=== PATIENT | female | born 1940 | race African-American/Black ===

== ENCOUNTER 2024-03-18 17:09 | Inpatient (IN) ==
[2024-03-18 18:14] LABS: Basophils # (auto) 0.04 K/uL (0.00-0.20); Basophils % (auto) 0.4 %; Eosinophils # (auto) 0.22 K/uL (0.00-0.50); Eosinophils % (auto) 2.4 %; Hematocrit (blood only) 31.1 % (37.0-47.0); Hemoglobin 9.7 g/dl (12.0-16.0); Immature Granulocytes # (auto) 0.14 K/uL (0.01-0.20); Immature Granulocytes % (auto) 1.5 %; Lymphocytes # (auto) 1.53 K/uL (1.20-3.40); Lymphocytes % (auto) 16.8 %; Mean Corpuscular Hemoglobin 35.5 pg (25.0-34.0); Mean Corpuscular Hgb Conc 31.2 g/dL (32.0-36.0); Mean Corpuscular Volume 113.9 fL (80.0-100.0); Mean Platelet Volume 10.2 fL (9.4-12.4); Monocytes # (auto) 0.61 K/uL (0.11-0.59); Monocytes % (auto) 6.7 %; Neutrophils # (auto) 6.58 K/uL (1.40-6.50); Neutrophils % (auto) 72.2 %; Platelet Count 239 K/uL (130-400); RDW Coefficient of Variation 13.1 % (11.5-14.5); RDW Standard Deviation 53.3 fL (36.4-46.3); Red Blood Count 2.73 M/uL (4.20-5.40); White Blood Count 9.12 K/ul (4.8-10.8)
[2024-03-18 18:30] LABS: Albumin Level 3.8 gm/dl (3.4-5.0); BUN Creatinine Ratio 39.4 (10-20); Bilirubin,Total 0.4 mg/dl (0.2-1.0); Calcium 9.4 mg/dl (8.6-10.3); Creatinine Clr Calc Pharmacy 32.7 ml/min; Magnesium 2.3 mg/dl (1.7-2.4); Potassium 4.7 mmol/L (3.5-5.1); Total Protein 6.9 gm/dl (6.0-8.3)
[2024-03-18 18:31] LABS: Macrocytosis Present
[2024-03-18 18:40] LABS: Troponin I High Sensitivity 12.1 pg/ml (0-14)
[2024-03-18] MEDS: OPTIRAY 320 100ml IV ONE (19:08)
[2024-03-18 19:15] LABS: Partial Thromboplastin Ratio 2.2; Partial Thromboplastin Time 60 Seconds (21-31); Prothrombin Time 55.4 Seconds (9.0-12.0)
--- NOTE | 2024-03-18 20:06 | CT Scan Report ---
Exam(s): CT HEAD Without Contrast EXAM: CT Head Without Intravenous Contrast CLINICAL HISTORY: Reason for exam: arnold. TECHNIQUE: Axial computed tomography images of the head/brain without intravenous contrast. CTDI is 36.43 mGy and DLP is 546.36 mGy-cm. Automated exposure control was utilized for the study. A dose lowering technique was utilized adhering to the principles of ALARA. COMPARISON: 07/30/2023 FINDINGS: Brain: No intracranial hemorrhage, mass-effect, or cerebral edema. Global parenchymal atrophy. Periventricular and subcortical low attenuation which is nonspecific but favored to represent chronic microvascular ischemic changes. Ventricles: Unremarkable. Bones/joints: Unremarkable. No fracture. Soft tissues: Unremarkable. Sinuses: No acute sinusitis. Mastoid air cells: Unremarkable as visualized. IMPRESSION: 1. No acute intracranial abnormality. Electronically signed by: Ed Howard MD 03/18/24 20:05 PM
--- NOTE | 2024-03-18 20:08 | CT Scan Report ---
Exam(s): CT ABDOMEN + PELVIS With Contrast IV Amt: 90 ml optiray 320 EXAM: CT Abdomen and Pelvis With Intravenous Contrast CLINICAL HISTORY: Reason for exam: abd pain. TECHNIQUE: Axial computed tomography images of the abdomen and pelvis with intravenous contrast. CTDI is 24.94 mGy and DLP is 1067.37 mGy-cm. Automated exposure control was utilized for the study. A dose lowering technique was utilized adhering to the principles of ALARA. CONTRAST: Patient received 90 ml optiray 320 of IV contrast COMPARISON: No relevant prior studies available. FINDINGS: Mediastinum: Small hiatal hernia. ABDOMEN: Liver: Unremarkable. Gallbladder and bile ducts: Unremarkable. Pancreas: Unremarkable. Spleen: Unremarkable. Adrenals: Unremarkable. Kidneys and ureters: Multiple cortical cysts. Moderate right hydronephrosis to the level of the UPJ. No obstructing stone or perinephric laboratory changes suggest this is chronic. Stomach and bowel: Mild acute diverticulitis of the sigmoid colon. No perforation or abscess. PELVIS: Appendix: No findings to suggest acute appendicitis. Bladder: Unremarkable. Reproductive: Hysterectomy. ABDOMEN and PELVIS: Intraperitoneal space: Unremarkable. No free air. No significant fluid collection. Bones/joints: Left hip arthroplasty. Degenerative changes at the pubic symphysis which is widened. No acute fracture. Degenerative changes in the SI joints and in the lumbar spine. Soft tissues: Unremarkable. Vasculature: Aortobiiliac atherosclerotic calcifications. Mildly ectatic infrarenal abdominal aorta measuring up to 2.8 cm. Lymph nodes: Unremarkable. IMPRESSION: 1. Mild acute diverticulitis of the sigmoid colon. No perforation or abscess. 2. Small hiatal hernia. 3. Moderate right hydronephrosis to the level of the UPJ. No obstructing stone or perinephric laboratory changes suggest this is chronic. Electronically signed by: Ed Howard MD 03/18/24 20:07 PM
[2024-03-18] MEDS: CIPROFLOXACIN / D5W 400 MG/200 ML BAG IV STA (20:22)
[2024-03-18] MEDS: metroNIDAZOLE 500 MG/100 ML BAG IV STA (20:27)
[2024-03-18] MEDS: ACETAMINOPHEN 1,000 MG/100 ML VIAL IV STA (20:38)
[2024-03-18] MEDS: PHYTONADIONE 5 MG in DEXTROSE 5% 50 ML IV ONE (22:21)
[2024-03-18] MEDS: diphenhydrAMINE Capsule 25 MG CAP PO STA (22:45)
--- NOTE | 2024-03-18 23:00 | History & Physical Report ---
Date of Service March 18, 2024 Assessment & Plan (1) Diverticulitis: (2) GI bleed: (3) Macrocytic anemia: (4) Hypertension: (5) Hydronephrosis of right kidney: (6) Chest tightness: Plan Diverticulitis/GI bleed - CT AP: No abscess or perforation, mild sigmoid diverticulitis - Continue IV ciprofloxacin/IV metronidazole abx for sigmoid diverticulitis - NPO/bowel rest with sips of water with medications - GI consult placed to determine potential endoscopy - Transition to outpatient abx on d/c Anemia - Hgb: 13.5 in July, 11.8 in August and today 9.7 - INR: 6, baseline 3.5-4 - IV vitamin K given - repeat INR QAM - Folate, B12, peripheral smear pending Chest tightness - EKst degree AV block, RBBB unchanged, increased MN interval - HST: 12.1, will repeat due to ongoing symptoms - Echocardiogram ordered, previous unavailable R. Hydronephrosis with renal cysts - CT AP: Moderate R. hydronephrosis to level of UPJ w/o obstructing stone - Renal/bladder US to assess bladder and kidneys for obstruction HTN - Continue home lisinopril 10mg PO daily History of Present Illness Chief Complaint: Diverticulitis, GI bleed Primary Care Provider: DARNELL Lemus Aleida Ty is a 83 y/o F with a past medical history of mechanical aortic valve replacement approximately 30 years ago on warfarin, glaucoma, CKD stage 3, HTN, chronic knee/back pain arriving in the [facility] ED due to an instance of black diarrhea this morning. Patient reports that she was feeling weak, lightheaded and dizzy last night, and had some chest tightness and SOB that she reports is unusual for her. Patient notes that the chest tightness is lingering today but her SOB has improved. When asked how she is feeling today she reports that she is miserable and uncomfortable in the ED bed. She describes her pain as 6/10 in the left lower quadrant of her abdomen, radiating around her lower back. Patient continues to feel very weak, and complains of chronic pains in her legs and upper back as well. In the ED patient had a head CT that was within normal limits and a CT AP that showed sigmoid diverticulitis. Patient was started on IV ciprofloxacin and IV metronidazole for this infection, and was also given IV vitamin K as her INR was 6.0 with a baseline around 3.5-4.0 associated with chronic warfarin therapy. Today patient denies cough, wheeze, headache, palpitations and chest pain. Allergies Allergy/AdvReac Type Severity Reaction Status Date / Time No Known Allergies Allergy Unverified 02/05/24 15:02 Home Medications Medication Instructions Recorded Confirmed Type latanoprost 0.005 % eye drops 1 drp OPB PM 07/31/23 03/18/24 History furosemide 20 mg tablet 20 mg PO DAILY #90 tabs 08/20/23 03/18/24 Rx warfarin 5 mg tablet 5 mg PO DAILY 08/20/23 03/18/24 History lisinopril 10 mg tablet 10 mg PO DAILY #90 tabs 10/30/23 03/18/24 Rx Shower Chair #1 ea 11/20/23 03/18/24 Rx diclofenac sodium 1 % topical gel 2 g topical QID PRN Pain 02/05/24 03/18/24 History (Arthritis Pain (diclofenac)) tramadol 50 mg tablet 50 mg PO BID PRN pain 02/05/24 03/18/24 History gabapentin 100 mg capsule 100 mg PO TID #90 caps 02/28/24 03/18/24 Rx brimonidine 0.2 % eye drops 1 drp OPB TID 03/18/24 03/18/24 History dorzolamide 2 % eye drops 1 drp OPB BID 03/18/24 03/18/24 History metoprolol succinate 25 mg 12.5 mg PO QAM 03/18/24 03/18/24 History tablet,extended release 24 hr Past Med/Surg History Problem List (Updated 03/18/24 @ 23:37 by Bret Wilkins MD) Chest tightness Hydronephrosis of right kidney Macrocytic anemia GI bleed (Acute) Diverticulitis (Acute) Chronic back pain Glaucoma CKD (chronic kidney disease) stage 3, GFR 30-59 ml/min HTN (hypertension) with goal to be determined On warfarin therapy Medical History Current every day smoker On warfarin therapy Hypertension Surgical History H/O mechanical aortic valve replacement Family History Brother Hypertension Heart disease Sister Hypertension Heart disease Mother Hypertension Heart disease Myocardial infarction Father Hypertension Heart disease Denies family history of Ovarian cancer Prostate cancer Breast cancer Lung cancer Colorectal cancer Stroke Social History Smoking Status: Current every day smoker Tobacco Type: Cigarettes Age Started Using Tobacco: 38; packs per day: 0.50; Cigarettes Per Day: 1/2 pack; Second Hand Exposure: No; Do You Dip or Chew Tobacco: No; Tobacco Cessation Education Requested by Patient: No Hx Alcohol Use: No Hx Substance Use: No Preferred Language: Italian Communication Ability: Effective Visual Impairment: Limited Hearing Ability: Normal Bariatric Coordinator Required: No Beliefs That Will Affect Care: None marital status: / Current Living Situation: Alone Current Living Situation Comment: alone, says she has home healthcare current occupational status: retired How many Children do You have: 4 Other Information That Helps Us Care for You: No Feels Safe at Home: Yes Safety Concerns: Feels Safe At This Time Childhood Exposure to Second-Hand Smoke: Yes Diet: low salt caffeine: Yes Dental Care, Regularly: No Physical Activity Frequency: Does not Exercise Seatbelt Use: always Sunscreen Use: No Assistive Devices: Walker and Other Assistive Devices Comment: walker and shower chair Physical Exam Physical Exam: General: patient resting comfortably, NAD, non-toxic in appearance, answers questions appropriately. Skin: warm, dry, intact HEENT: NC/AT, anicteric sclera, conjunctiva without injection, moist mucus membranes. Heart: +S1/S2, regular, no m/r/g Lungs: equal air entry bilaterally, no rales/rhonchi/wheezes Abd: +BS, soft, NT/ND Ext: warm, no clubbing/cyanosis, painful when palpating BL LE Neuro: nonfocal, speech intact, no facial droop, moving all extremities. Results & Data Results & Data Vital Signs (Past 12 Hours) Vital Signs Temp Pulse Pulse Resp BP BP Pulse Ox 03/18/24 22:00 83 22 160/62 H 97 03/18/24 21:38 85 03/18/24 20:00 82 12 173/76 H 98 03/18/24 18:12 86 16 97 03/18/24 18:12 86 16 114/94 97 03/18/24 17:40 92 H 03/18/24 17:17 37.1 C 86 20 164/124 H 97 O2 Del Method 03/18/24 22:00 Room Air 03/18/24 21:38 03/18/24 20:00 Room Air 03/18/24 18:12 Room Air 03/18/24 18:12 Room Air 03/18/24 17:40 03/18/24 17:17 Room Air Diagnostic Findings Laboratory Results WBC 9.12 K/ul (4.8-10.8) 03/18/24 17:39 RBC 2.73 M/uL (4.20-5.40) L 03/18/24 17:39 Hgb 9.7 g/dl (12.0-16.0) L 03/18/24 17:39 Hct 31.1 % (37.0-47.0) L 03/18/24 17:39 MCV 113.9 fL (80.0-100.0) H 03/18/24 17:39 MCH 35.5 pg (25.0-34.0) H 03/18/24 17:39 MCHC 31.2 g/dL (32.0-36.0) L 03/18/24 17:39 RDW Std Deviation 53.3 fL (36.4-46.3) H 03/18/24 17:39 RDW Coeff of Xavier 13.1 % (11.5-14.5) 03/18/24 17:39 Plt Count 239 K/uL (130-400) 03/18/24 17:39 MPV 10.2 fL (9.4-12.4) 03/18/24 17:39 Immature Gran % (Auto) 1.5 % 03/18/24 17:39 Neut % (Auto) 72.2 % 03/18/24 17:39 Lymph % (Auto) 16.8 % 03/18/24 17:39 Laurel % (Auto) 6.7 % 03/18/24 17:39 Eos % (Auto) 2.4 % 03/18/24 17:39 Baso % (Auto) 0.4 % 03/18/24 17:39 Neut # (Auto) 6.58 K/uL (1.40-6.50) H 03/18/24 17:39 Lymph # (Auto) 1.53 K/uL (1.20-3.40) 03/18/24 17:39 Laurel # (Auto) 0.61 K/uL (0.11-0.59) H 03/18/24 17:39 Eos # (Auto) 0.22 K/uL (0.00-0.50) 03/18/24 17:39 Baso # (Auto) 0.04 K/uL (0.00-0.20) 03/18/24 17:39 Immature Gran # (Auto) 0.14 K/uL (0.01-0.20) 03/18/24 17:39 Macrocytosis Present 03/18/24 17:39 PT 55.4 Seconds (9.0-12.0) H 03/18/24 17:39 INR 6.0 (0.9-1.1) H* 03/18/24 17:39 APTT 60 Seconds (21-31) H 03/18/24 17:39 PTT Ratio 2.2 03/18/24 17:39 Sodium 142 mmol/L (136-145) 03/18/24 17:39 Potassium 4.7 mmol/L (3.5-5.1) 03/18/24 17:39 Chloride 115 mmol/L (98-107) H 03/18/24 17:39 Carbon Dioxide 21 mmol/L (21-32) 03/18/24 17:39 Anion Gap 6 (3-11) 03/18/24 17:39 BUN 50 mg/dl (6-23) H 03/18/24 17:39 Creatinine 1.27 mg/dl (0.6-1.2) H 03/18/24 17:39 Est Cr Clr Drug Dosing 32.7 ml/min 03/18/24 17:39 eGFR 41.44 03/18/24 17:39 BUN/Creatinine Ratio 39.4 (10-20) H 03/18/24 17:39 Glucose 84 mg/dl (70-99(Fasting)) 03/18/24 17:39 Calcium 9.4 mg/dl (8.6-10.3) 03/18/24 17:39 Magnesium 2.3 mg/dl (1.7-2.4) 03/18/24 17:39 Total Bilirubin 0.4 mg/dl (0.2-1.0) 03/18/24 17:39 Direct Bilirubin 0.0 mg/dl (0-0.2) 03/18/24 17:39 AST 22 U/L (13-39) 03/18/24 17:39 ALT 15 U/L (7-52) 03/18/24 17:39 Alkaline Phosphatase 103 U/L (34-104) 03/18/24 17:39 Troponin I High Sens 12.1 pg/ml (0-14) 03/18/24 17:39 Total Protein 6.9 gm/dl (6.0-8.3) 03/18/24 17:39 Albumin 3.8 gm/dl (3.4-5.0) 03/18/24 17:39 Lipase 44 U/L (11-82) 03/18/24 17:39 Blood Type O Positive 03/18/24 21:06 Antibody Screen NEGATIVE 03/18/24 21:06 Impressions Abdomen/Pelvis CT 03/18/24 17:36 Exam(s): CT ABDOMEN + PELVIS With Contrast IV Amt: 90 ml optiray 320 EXAM: CT Abdomen and Pelvis With Intravenous Contrast CLINICAL HISTORY: Reason for exam: abd pain. TECHNIQUE: Axial computed tomography images of the abdomen and pelvis with intravenous contrast. CTDI is 24.94 mGy and DLP is 1067.37 mGy-cm. Automated exposure control was utilized for the study. A dose lowering technique was utilized adhering to the principles of ALARA. CONTRAST: Patient received 90 ml optiray 320 of IV contrast COMPARISON: No relevant prior studies available. FINDINGS: Mediastinum: Small hiatal hernia. ABDOMEN: Liver: Unremarkable. Gallbladder and bile ducts: Unremarkable. Pancreas: Unremarkable. Spleen: Unremarkable. Adrenals: Unremarkable. Kidneys and ureters: Multiple cortical cysts. Moderate right hydronephrosis to the level of the UPJ. No obstructing stone or perinephric laboratory changes suggest this is chronic. Stomach and bowel: Mild acute diverticulitis of the sigmoid colon. No perforation or abscess. PELVIS: Appendix: No findings to suggest acute appendicitis. Bladder: Unremarkable. Reproductive: Hysterectomy. ABDOMEN and PELVIS: Intraperitoneal space: Unremarkable. No free air. No significant fluid collection. Bones/joints: Left hip arthroplasty. Degenerative changes at the pubic symphysis which is widened. No acute fracture. Degenerative changes in the SI joints and in the lumbar spine. Soft tissues: Unremarkable. Vasculature: Aortobiiliac atherosclerotic calcifications. Mildly ectatic infrarenal abdominal aorta measuring up to 2.8 cm. Lymph nodes: Unremarkable. IMPRESSION: 1. Mild acute diverticulitis of the sigmoid colon. No perforation or abscess. 2. Small hiatal hernia. 3. Moderate right hydronephrosis to the level of the UPJ. No obstructing stone or perinephric laboratory changes suggest this is chronic. Electronically signed by: Ed Howard MD 03/18/24 20:[address] 03/18/24 17:46 Exam(s): CT HEAD Without Contrast EXAM: CT Head Without Intravenous Contrast CLINICAL HISTORY: Reason for exam: arnold. TECHNIQUE: Axial computed tomography images of the head/brain without intravenous contrast. CTDI is 36.43 mGy and DLP is 546.36 mGy-cm. Automated exposure control was utilized for the study. A dose lowering technique was utilized adhering to the principles of ALARA. COMPARISON: 07/30/2023 FINDINGS: Brain: No intracranial hemorrhage, mass-effect, or cerebral edema. Global parenchymal atrophy. Periventricular and subcortical low attenuation which is nonspecific but favored to represent chronic microvascular ischemic changes. Ventricles: Unremarkable. Bones/joints: Unremarkable. No fracture. Soft tissues: Unremarkable. Sinuses: No acute sinusitis. Mastoid air cells: Unremarkable as visualized. IMPRESSION: 1. No acute intracranial abnormality. Electronically signed by: Ed Howard MD 03/18/24 20:05 PM Supervising Physician Co-Signing Physician Notes Attending addendum: I have physically seen this patient, have supervised the medical residents activities, and agree with the H&P unless as otherwise noted. Assessment and Plan: Mild acute sigmoid diverticulitis/lower GI bleed- CT abdomen pelvis showed mild sigmoid diverticulitis, without abscess or perforation NPO except essential medications Continue Cipro 40 mg IV every 12 hours and Flagyl 5 mg IV every 8 hours begun in the ED Consult gastroenterology Follow serial H&H's Chest tightness- Initial troponin mildly elevated at 14.9 with follow-up pending The patient will be admitted to telemetry for serial cardiac enzymes, serial EKG's, cardiac rhythm monitoring and a 2-D echocardiogram with Dopplers. Anemia- Hemoglobin has sequentially dropped from 13.5 in July, -11.8 in August, to today's value of 9.7 Blood pressure and heart rate are acceptable Type and screen Coagulopathy/chronic warfarin use for mechanical valve- INR 6.0 on admission with base range 3.5-4 Vitamin K 5 mg IV given by the ED Repeat INR in the a.m. Check a folate, B12 iron levels and peripheral smear Right hydronephrosis with renal cyst- CT abdomen pelvis with moderate right hydro to the UPJ No obstructing stone or other obvious obstruction Order renal bladder ultrasound to further assess Three-phase renal CT may be needed Pending results, may require urology consult Tobacco use disorder- Smokes half pack per day x 40 years Tobacco cessation counseling Resident Activity Tracking Resident Involvement: Resident Care Provided Care Provided: Adult Hospital Medicine
--- NOTE | 2024-03-18 23:37 | Emergency Department Note ---
History of Present Illness General Chief complaint: GI Assessment Stated complaint: GI Assessment Time Seen by Provider: 03/18/24 17:35 History of Present Illness Provider Complaint: + melena and + gross hematochezia Onset (ago): 1 day(s) Pain Consistency: + constant Maximum Pain Intensity: 6 Current Pain Intensity: 6 Relieved By: + none Exacerbated By: + bowel movement Context: + anticoagulant use (Patient on Coumadin reports last INR was 8.2); no rectal trauma or no alcohol abuse Associated symptoms: + abdominal pain and + headaches; no nausea, no vomiting, no fever or no chills Home Medications Medication Instructions Recorded Confirmed Type latanoprost 0.005 % eye drops 1 drp OPB PM 07/31/23 03/18/24 History furosemide 20 mg tablet 20 mg PO DAILY #90 tabs 08/20/23 03/18/24 Rx warfarin 5 mg tablet 5 mg PO DAILY 08/20/23 03/18/24 History lisinopril 10 mg tablet 10 mg PO DAILY #90 tabs 10/30/23 03/18/24 Rx Shower Chair #1 ea 11/20/23 03/18/24 Rx diclofenac sodium 1 % topical gel 2 g topical QID PRN Pain 02/05/24 03/18/24 History (Arthritis Pain (diclofenac)) tramadol 50 mg tablet 50 mg PO BID PRN pain 02/05/24 03/18/24 History gabapentin 100 mg capsule 100 mg PO TID #90 caps 02/28/24 03/18/24 Rx brimonidine 0.2 % eye drops 1 drp OPB TID 03/18/24 03/18/24 History dorzolamide 2 % eye drops 1 drp OPB BID 03/18/24 03/18/24 History metoprolol succinate 25 mg 12.5 mg PO QAM 03/18/24 03/18/24 History tablet,extended release 24 hr Allergies Allergy/AdvReac Type Severity Reaction Status Date / Time No Known Allergies Allergy Unverified 02/05/24 15:02 Past Med/Surg History Problem List (Updated 03/18/24 @ 23:37 by Bret Wilkins MD) Chest tightness Hydronephrosis of right kidney Macrocytic anemia GI bleed (Acute) Diverticulitis (Acute) Chronic back pain Glaucoma CKD (chronic kidney disease) stage 3, GFR 30-59 ml/min HTN (hypertension) with goal to be determined On warfarin therapy Medical History Current every day smoker On warfarin therapy Hypertension Surgical History H/O mechanical aortic valve replacement Family History Brother Hypertension Heart disease Sister Hypertension Heart disease Mother Hypertension Heart disease Myocardial infarction Father Hypertension Heart disease Denies family history of Ovarian cancer Prostate cancer Breast cancer Lung cancer Colorectal cancer Stroke Social History Smoking Status: Current every day smoker Tobacco Type: Cigarettes Age Started Using Tobacco: 38; packs per day: 0.50; Second Hand Exposure: No; Do You Dip or Chew Tobacco: No; Hx Alcohol Use: No Hx Substance Use: No Preferred Language: Honduran Visual Impairment: Limited Hearing Ability: Normal marital status: / Current Living Situation: Alone current occupational status: retired How many Children do You have: 4 Feels Safe at Home: Yes Childhood Exposure to Second-Hand Smoke: Yes Diet: low salt caffeine: Yes Dental Care, Regularly: No Physical Activity Frequency: Does not Exercise Seatbelt Use: always Sunscreen Use: No Assistive Devices: Glasses Physical Exam 2 Vital Signs: Vital Signs - 24 hr 03/18/24 17:17 03/18/24 17:40 03/18/24 18:12 Temperature 37.1 C Temperature Source Temporal Artery Sc an Pulse Rate 86 92 H Pulse Rate [Apical ] 86 Respiratory Rate 20 16 Respiratory Effort / Characteristics Non-Labored Respiratory Depth Normal Blood Pressure 164/124 H Blood Pressure [Ri ght Arm] 114/94 Blood Pressure Scarlett n 137 Blood Pressure Scarlett n [Right Arm] 100 Blood Pressure Pos ition [Right Arm] Semi-fowlers Pulse Oximetry 97 97 Oxygen Delivery Me thod Room Air Room Air Sepsis Recent Feve r Within 48 Hours No Sepsis New/Unexpla ined Change in Men naveed Status N/A Sepsis Action Take n by Nursing No Action Required 03/18/24 18:12 03/18/24 20:00 03/18/24 21:38 Temperature Temperature Source Pulse Rate 86 85 Pulse Rate [Apical ] 82 Respiratory Rate 16 12 Respiratory Effort / Characteristics Non-Labored Respiratory Depth Normal Blood Pressure Blood Pressure [Ri ght Arm] 173/76 H Blood Pressure Scarlett n Blood Pressure Scarlett n [Right Arm] 108 Blood Pressure Pos ition [Right Arm] Semi-fowlers Pulse Oximetry 97 98 Oxygen Delivery Me thod Room Air Room Air Sepsis Recent Feve r Within 48 Hours Sepsis New/Unexpla ined Change in Men naveed Status Sepsis Action Take n by Nursing 03/18/24 22:00 Temperature Temperature Source Pulse Rate Pulse Rate [Apical ] 83 Respiratory Rate 22 Respiratory Effort / Characteristics Non-Labored Sponta neous Respiratory Depth Normal Blood Pressure Blood Pressure [Ri ght Arm] 160/62 H Blood Pressure Scarlett n Blood Pressure Scarlett n [Right Arm] 94 Blood Pressure Pos ition [Right Arm] Semi-fowlers Pulse Oximetry 97 Oxygen Delivery Me thod Room Air Sepsis Recent Feve r Within 48 Hours Sepsis New/Unexpla ined Change in Men naveed Status Sepsis Action Take n by Nursing Physical Exam: Physical Exam HENT: Exam performed. -Head: Normocephalic and atraumatic. -Right Ear: External ear normal. No mastoid erythema -Left Ear: External ear normal. No mastoid erythema -Mouth/Throat: The oropharynx is clear and moist. No trismus in the jaw. No dental abscesses or uvula swelling. No oropharyngeal exudate or tonsillar abscesses. EYES: Conjunctivae and EOM are normal.Right eye exhibits no discharge. Left eye exhibits no discharge. No scleral icterus. NECK: Normal range of motion. Neck supple. No JVD present. No tracheal deviation and normal range of motion present. CV: Normal rate, regular rhythm, normal heart sounds and intact distal pulses. There is no peripheral edema. Palpable radial pulses bue. PULM/CHEST: Effort normal and breath sounds normal. No respiratory distress. No stridor. no wheezes.no rales. ABD: The abdomen is soft. Bowel sounds are normal. no distension. No mass is present. There is tenderness to palpation left lower quadrant. There is no rebound, no guarding, no Rondon's sign and no tenderness at McBurney's point. Rovsig negative Rectal: Rectal exam performed with female nursing corporate general manager Bonny at bedside. Dark red blood and melena from the rectum. MUSC/SKEL: Normal range of motion. There is no peripheral edema, tenderness or deformity. NEURO: Motor and sensation grossly intact. SKIN: Skin is warm and dry. not diaphoretic. PSYCH: normal mood and affect. Behavior is normal. Judgment and thought content normal. Course Course 1734: The patient was evaluated in room B5. A complete history and physical exam was performed Cardiac monitoring: An order was placed for continuous cardiac monitoring. The monitor shows a rate of 80 with sinus rhythm interpreted by [facility] 2015: Vital signs stable. Imaging shows diverticulitis. Labs show hemoglobin of 9.7. External medical records reviewed and patient's last hemoglobin in our system was 11.8 on August 27, 2023. Patient's INR is 6. Patient treated with vitamin K IV as well as IV Cipro and IV Flagyl. [facility]. Administered Medications Discontinued Medications Diphenhydramine HCl (Diphenhydramine Capsule 25 Mg Cap) 25 mg PO NOW STA Stop: 03/18/24 22:41 Last Admin: 03/18/24 22:45 Dose: 25 mg Documented By: MMF Phytonadione 5 mg/ Dextrose 50.5 mls @ 101 mls/hr IV ONE ONE Stop: 03/18/24 20:44 Last Admin: 03/18/24 22:21 Dose: 101 mls/hr Documented By: MMF Ciprofloxacin (Cipro / D5w) 400 mg in 200 mls @ 100 mls/hr IV NOW STA; Protocol Stop: 03/18/24 22:14 Last Infusion: 03/18/24 23:02 Dose: Infused Documented By: Admin: 03/18/24 20:22 Dose: 100 mls/hr Documented By: MMF Metronidazole (Flagyl) 500 mg in 100 mls @ 100 mls/hr IV NOW STA Stop: 03/18/24 21:14 Last Infusion: 03/18/24 21:59 Dose: Infused Documented By: Admin: 03/18/24 20:27 Dose: 100 mls/hr Documented By: MMF Acetaminophen (Ofirmev) 1,000 mg in 100 mls @ 400 mls/hr IV NOW STA Stop: 03/18/24 20:39 Last Infusion: 03/18/24 21:07 Dose: Infused Documented By: Admin: 03/18/24 20:38 Dose: 400 mls/hr Documented By: MMF Ioversol (Optiray 320 100ml) 90 ml IV ONCE ONE Stop: 03/18/24 19:09 Last Admin: 03/18/24 19:08 Dose: 90 ml Documented By: MARLY Medical Decision Making Laboratory Data Attestation: I reviewed the patient's lab results. 03/18/24 17:39 03/18/24 17:39 Lab Results 03/18/24 03/18/24 Range/Units 17:39 21:06 WBC 9.12 (4.8-10.8) K/ul RBC 2.73 L (4.20-5.40) M/uL Hgb 9.7 L (12.0-16.0) g/dl Hct 31.1 L (37.0-47.0) % MCV 113.9 H (80.0-100.0) fL MCH 35.5 H (25.0-34.0) pg MCHC 31.2 L (32.0-36.0) g/dL RDW Std Deviation 53.3 H (36.4-46.3) fL RDW Coeff of Xavier 13.1 (11.5-14.5) % Plt Count 239 (130-400) K/uL MPV 10.2 (9.4-12.4) fL Immature Gran % (Auto) 1.5 % Neut % (Auto) 72.2 % Lymph % (Auto) 16.8 % [place] % (Auto) 6.7 % Eos % (Auto) 2.4 % Baso % (Auto) 0.4 % Neut # (Auto) 6.58 H (1.40-6.50) K/uL Lymph # (Auto) 1.53 (1.20-3.40) K/uL [place] # (Auto) 0.61 H (0.11-0.59) K/uL Eos # (Auto) 0.22 (0.00-0.50) K/uL Baso # (Auto) 0.04 (0.00-0.20) K/uL Immature Gran # (Auto) 0.14 (0.01-0.20) K/uL Macrocytosis Present PT 55.4 H (9.0-12.0) Seconds INR 6.0 H* (0.9-1.1) APTT 60 H (21-31) Seconds PTT Ratio 2.2 Sodium 142 (136-145) mmol/L Potassium 4.7 (3.5-5.1) mmol/L Chloride 115 H (98-107) mmol/L Carbon Dioxide 21 (21-32) mmol/L Anion Gap 6 (3-11) BUN 50 H (6-23) mg/dl Creatinine 1.27 H (0.6-1.2) mg/dl Est Cr Clr Drug Dosing 32.7 ml/min eGFR 41.44 BUN/Creatinine Ratio 39.4 H (10-20) Glucose 84 (70-99(Fasting)) mg/dl Calcium 9.4 (8.6-10.3) mg/dl Magnesium 2.3 (1.7-2.4) mg/dl Total Bilirubin 0.4 (0.2-1.0) mg/dl Direct Bilirubin 0.0 (0-0.2) mg/dl AST 22 (13-39) U/L ALT 15 (7-52) U/L Alkaline Phosphatase 103 (34-104) U/L Troponin I High Sens 12.1 (0-14) pg/ml Total Protein 6.9 (6.0-8.3) gm/dl Albumin 3.8 (3.4-5.0) gm/dl Lipase 44 (11-82) U/L Blood Type O Positive Antibody Screen NEGATIVE Imaging Data Radiologist's Impression: Abdomen/Pelvis CT 03/18/24 17:36 Exam(s): CT ABDOMEN + PELVIS With Contrast IV Amt: 90 ml optiray 320 EXAM: CT Abdomen and Pelvis With Intravenous Contrast CLINICAL HISTORY: Reason for exam: abd pain. TECHNIQUE: Axial computed tomography images of the abdomen and pelvis with intravenous contrast. CTDI is 24.94 mGy and DLP is 1067.37 mGy-cm. Automated exposure control was utilized for the study. A dose lowering technique was utilized adhering to the principles of ALARA. CONTRAST: Patient received 90 ml optiray 320 of IV contrast COMPARISON: No relevant prior studies available. FINDINGS: Mediastinum: Small hiatal hernia. ABDOMEN: Liver: Unremarkable. Gallbladder and bile ducts: Unremarkable. Pancreas: Unremarkable. Spleen: Unremarkable. Adrenals: Unremarkable. Kidneys and ureters: Multiple cortical cysts. Moderate right hydronephrosis to the level of the UPJ. No obstructing stone or perinephric laboratory changes suggest this is chronic. Stomach and bowel: Mild acute diverticulitis of the sigmoid colon. No perforation or abscess. PELVIS: Appendix: No findings to suggest acute appendicitis. Bladder: Unremarkable. Reproductive: Hysterectomy. ABDOMEN and PELVIS: Intraperitoneal space: Unremarkable. No free air. No significant fluid collection. Bones/joints: Left hip arthroplasty. Degenerative changes at the pubic symphysis which is widened. No acute fracture. Degenerative changes in the SI joints and in the lumbar spine. Soft tissues: Unremarkable. Vasculature: Aortobiiliac atherosclerotic calcifications. Mildly ectatic infrarenal abdominal aorta measuring up to 2.8 cm. Lymph nodes: Unremarkable. IMPRESSION: 1. Mild acute diverticulitis of the sigmoid colon. No perforation or abscess. 2. Small hiatal hernia. 3. Moderate right hydronephrosis to the level of the UPJ. No obstructing stone or perinephric laboratory changes suggest this is chronic. Electronically signed by: Ed Howard MD 03/18/24 20:[address] 03/18/24 17:46 Exam(s): CT HEAD Without Contrast EXAM: CT Head Without Intravenous Contrast CLINICAL HISTORY: Reason for exam: arnold. TECHNIQUE: Axial computed tomography images of the head/brain without intravenous contrast. CTDI is 36.43 mGy and DLP is 546.36 mGy-cm. Automated exposure control was utilized for the study. A dose lowering technique was utilized adhering to the principles of ALARA. COMPARISON: 07/30/2023 FINDINGS: Brain: No intracranial hemorrhage, mass-effect, or cerebral edema. Global parenchymal atrophy. Periventricular and subcortical low attenuation which is nonspecific but favored to represent chronic microvascular ischemic changes. Ventricles: Unremarkable. Bones/joints: Unremarkable. No fracture. Soft tissues: Unremarkable. Sinuses: No acute sinusitis. Mastoid air cells: Unremarkable as visualized. IMPRESSION: 1. No acute intracranial abnormality. Electronically signed by: Ed Howard MD 03/18/24 20:05 PM ECG Data Attestation: I personally reviewed and interpreted this ECG as follows: Rate (beats per minute): 84 Rhythm: normal sinus Findings: + 1st degree AV block and + RBBB; no ST depression, no ST elevation or no prolonged QT MDM Narrative 1735: The patient was evaluated in room B5. A complete history and physical exam was performed Cardiac monitoring: An order was placed for continuous cardiac monitoring. The monitor shows a rate of 80 with sinus rhythm interpreted by me 2015: Vital signs stable. Imaging shows diverticulitis. Labs show hemoglobin of 9.7. External medical records reviewed and patient's last hemoglobin in our system was 11.8 on August 27, 2023. Patient's INR is 6. Patient treated with vitamin K IV as well as IV Cipro and IV Flagyl. Patient will be admitted to the [facility] hospitalist team. Impression & Plan Diverticulitis, GI bleed Discharge Plan Visit Data Chief Complaint: GI Assessment Stated Complaint: GI Assessment ED Provider: Bret Wilkins Discharge Problem: Diverticulitis, GI bleed Patient Disposition: Admitted As Inpatient Forms Stand Alone Forms: [facility] Prescriptions Prescriptions: No Action gabapentin 100 mg capsule 100 mg PO TID Qty: 90 2RF lisinopril 10 mg tablet 10 mg PO DAILY Qty: 90 3RF diclofenac sodium [Arthritis Pain (diclofenac)] 1 % gel 2 g topical QID PRN (Reason: Pain) Rx Instructions: apply to single elbow, wrist or hand; for hand includes palm/fingers/back of hand tramadol 50 mg tablet 50 mg PO BID PRN (Reason: pain) warfarin 5 mg tablet 5 mg PO DAILY furosemide 20 mg tablet 20 mg PO DAILY Qty: 90 3RF (DME) Shower Chair Misc See Rx Instructions .Route Qty: 1 0RF Rx Instructions: As directed, bench that extends from outside to inside of tub latanoprost 0.005 % Drops 1 drp OPB PM Rx Instructions: both eyes metoprolol succinate 25 mg tablet extended release 24 hr 12.5 mg PO QAM dorzolamide 2 % drops 1 drp OPB BID brimonidine 0.2 % drops 1 drp OPB TID Referrals Referrals: Song Pritchard CRNP [Primary Care Provider] -
--- NOTE | 2024-03-19 06:31 | Billing Data ---
Date of Service March 19, 2024 Coding Level of Care Code 00594 INT INP/OBS CARE
[2024-03-19 08:17] LABS: INR 1.8 (0.9-1.1); Prothrombin Time 18.8 Seconds (9.0-12.0)
--- NOTE | 2024-03-19 08:25 | Electrocardiogram Report ---
Test Reason : Blood Pressure : */* mmHG Vent. Rate : 84 BPM Atrial Rate : 84 BPM P-R Int : 234 ms QRS Dur : 160 ms QT Int : 416 ms P-R-T Axes : 84 84 64 degrees QTcB Int : 491 ms Sinus rhythm with 1st degree A-V block Right bundle branch block Abnormal ECG When compared with ECG of 30-Jul-2023 18:53, GA interval has increased QRS axis Shifted right Criteria for Anterior infarct are no longer Present T wave inversion no longer evident in Anterior leads Confirmed by Yandel Noland ([id number]) on 03/19/2024 8:24:41 AM Referred By: Confirmed By: Yandel Noland
[2024-03-19 08:28] LABS: Folate (Folic Acid),Ser orPlas > 22.30 ng/ml (>5.38)
[2024-03-19 08:29] LABS: Vitamin B12 506 pg/ml (180-914)
[2024-03-19 09:20] LABS: BUN Creatinine Ratio 45.8 (10-20); Creatinine Clr Calc Pharmacy 38.1 ml/min; Hemoglobin 8.7 g/dl (12.0-16.0); Mean Corpuscular Hemoglobin 35.7 pg (25.0-34.0); Mean Corpuscular Hgb Conc 31.1 g/dL (32.0-36.0); Mean Corpuscular Volume 114.8 fL (80.0-100.0); Mean Platelet Volume 10.3 fL (9.4-12.4); Platelet Count 220 K/uL (130-400); Potassium 4.3 mmol/L (3.5-5.1); RDW Coefficient of Variation 13.1 % (11.5-14.5); RDW Standard Deviation 54.6 fL (36.4-46.3); Red Blood Count 2.44 M/uL (4.20-5.40); White Blood Count 9.12 K/ul (4.8-10.8)
[2024-03-19] MEDS: GABAPENTIN 100 MG CAP PO SCH (09:33)
[2024-03-19] MEDS: lisinopril 10 MG TAB PO SCH (09:33)
[2024-03-19] MEDS: METOPROLOL SUCC 25MG EXT REL TAB PO SCH (09:34)
[2024-03-19] MEDS: BRIMONIDINE TARTRATE 0.2% 5ML OPB SCH (09:34)
[2024-03-19] MEDS: DORZOLAMIDE HCL 2% OPH SOLN 10 ML BTL OPB SCH (09:34)
[2024-03-19] MEDS: traMADol HCL 50 MG TABLET PO PRN (09:36)
--- NOTE | 2024-03-19 09:38 | Ultrasound Report ---
US renal/blad retro comp CLINICAL HISTORY: R. hydronephrosis with renal cysts TECHNIQUE: Multiple sonographic real-time images of the kidneys and bladder were obtained. COMPARISON: Comparison is made to CT abdomen pelvis 03/18/2024 FINDINGS: The right kidney measures 10.7 cm in length, and the left kidney measures 9.6 cm in length. The right kidney is normal in size, contour, cortical thickness, and echogenicity. No hydronephrosis is identified. Multiple cysts noted, the largest measuring 3.6 cm. The left kidney is normal in size, contour, cortical thickness and echogenicity. No hydronephrosis i s identified. Multiple cysts noted, the largest measuring 3.0 cm. The bladder is partially distended. Bilateral jets are seen. IMPRESSION: Renal cysts are seen without complex features or concern for solid mass. ACT 112: Negative or not required by law. Electronically signed by: Isiah Goyal M.D. 03/19/2024 9:37 AM
[2024-03-19] MEDS: HEPARIN SODIUM/DEXTROSE 25,000 UNITS/500 ML BAG IV SCH (10:20)
[2024-03-19] MEDS: Heparin IV Adult Wt-Based Standard *NO* INITIAL Bolus Protocol IV STA (10:21)
[2024-03-19 11:03] LABS: Basophils # (auto) 0.04 K/uL (0.00-0.20); Basophils % (auto) 0.4 %; Eosinophils # (auto) 0.19 K/uL (0.00-0.50); Eosinophils % (auto) 2.1 %; Hematocrit (blood only) 25.9 % (37.0-47.0); Hemoglobin 8.2 g/dl (12.0-16.0); Immature Granulocytes # (auto) 0.04 K/uL (0.01-0.20); Immature Granulocytes % (auto) 0.4 %; Lymphocytes # (auto) 1.41 K/uL (1.20-3.40); Lymphocytes % (auto) 15.4 %; Mean Corpuscular Hgb Conc 31.7 g/dL (32.0-36.0); Mean Corpuscular Volume 113.6 fL (80.0-100.0); Mean Platelet Volume 10.1 fL (9.4-12.4); Monocytes # (auto) 0.63 K/uL (0.11-0.59); Monocytes % (auto) 6.9 %; Neutrophils # (auto) 6.84 K/uL (1.40-6.50); Neutrophils % (auto) 74.8 %; Nucleated RBC # (auto) 0.02 K/uL (0.00-0.12); Nucleated RBC % (auto) 0.2 %; Platelet Count 208 K/uL (130-400); RDW Standard Deviation 53.2 fL (36.4-46.3); Red Blood Count 2.28 M/uL (4.20-5.40); White Blood Count 9.15 K/ul (4.8-10.8)
[2024-03-19 11:24] LABS: Partial Thromboplastin Ratio 1.4; Partial Thromboplastin Time 38 Seconds (21-31)
[2024-03-19 11:35] LABS: Macrocytosis Present; Polychromasia 1+
[2024-03-19] MEDS: WARFARIN SOD 5 MG TAB PO STA (12:51)
--- NOTE | 2024-03-19 14:00 | Gastrointestinal Consultation ---
Date of Consultation March 19, 2024 Assessment & Plan (1) Diverticulitis: (2) GI bleed: Plan Patient is an 83 year old female with some rectal bleeding and dark stools. It does not appear to be true melena from what we saw while discussing with patient, and there was only minimal bright red blood in the toilet. she is complaining of worsening chest pain and sob. discussed case with Dr. Ackemran. - monitor hgb/hct. transfuse as needed. - would recommend a cardiology consult for her sob and chest discomfort. - in light of worsening chest pain and sob, would hold off on endoscopic evaluation for now. - further recommendations to follow, see MD eddy. Supervising Physician Co-Signing Physician Notes I examined the patient and reviewed patient's chart , laboratory data and imaging studies. I agree with with assessment and plan of care as suggested by advanced practice provider. The patient complains of profound fatigue, chest discomfort. But with lower abdominal pain and mild diverticulitis on the CT scan. Patient passed dark, blood tinted stool. Hemoglobin decreased from 9.7-8.2. Chronic with normal vitamin B12, rule out hematological issue. On Coumadin for mechanical aortic valve, INR was 6 yesterday. On IV heparin. I would recommend to continue IV heparin. Monitor H&H. Cardiology consultation. Hold off on colonoscopy until cleared by cardiology. History of Present Illness Reason for Consultation: melena Requesting Physician: Delmi WEATHERS Attending Physician: Loki Munoz History of Present Illness Patient is an 83 year old female with a past medical history of mechanical aortic valve replacement approximately 30 years ago - on warfarin, glaucoma, CKD stage 3, HTN, chronic knee/back pain arriving in the [facility] ED due to an instance of dark stool. Patient reports that lately she has been feeling weak, lightheaded, and dizzy with some chest tightness and SOB that she reports is unusual for her. She had CT showing diverticulitis and started on cipro and flagyl. GI consulted for dark stools with rectal bleeding. 03/19 INR was 6 with a hgb o 9.7. 03/20 hgb dropped to 8.2. she feels some abdominal discomfort. no nausea, vomiting, reflux. she had a stool in her toilet with some mild blood. stool does not appear like true melena. she had a colonoscopy done "years ago" in [place] with a history of polyps. she tells me she never followed up on this. Allergies Allergy/AdvReac Type Severity Reaction Status Date / Time No Known Allergies Allergy Unverified 02/05/24 15:02 Home Medications Medication Instructions Recorded Confirmed Type latanoprost 0.005 % eye drops 1 drp OPB PM 07/31/23 03/18/24 History furosemide 20 mg tablet 20 mg PO DAILY #90 tabs 08/20/23 03/18/24 Rx warfarin 5 mg tablet 5 mg PO DAILY 08/20/23 03/18/24 History lisinopril 10 mg tablet 10 mg PO DAILY #90 tabs 10/30/23 03/18/24 Rx Shower Chair #1 ea 11/20/23 03/18/24 Rx diclofenac sodium 1 % topical gel 2 g topical QID PRN Pain 02/05/24 03/18/24 History (Arthritis Pain (diclofenac)) tramadol 50 mg tablet 50 mg PO BID PRN pain 02/05/24 03/18/24 History gabapentin 100 mg capsule 100 mg PO TID #90 caps 02/28/24 03/18/24 Rx brimonidine 0.2 % eye drops 1 drp OPB TID 03/18/24 03/18/24 History dorzolamide 2 % eye drops 1 drp OPB BID 03/18/24 03/18/24 History metoprolol succinate 25 mg 12.5 mg PO QAM 03/18/24 03/18/24 History tablet,extended release 24 hr Patient History Medical History Current every day smoker On warfarin therapy Hypertension Surgical History H/O mechanical aortic valve replacement Family History Brother Hypertension Heart disease Sister Hypertension Heart disease Mother Hypertension Heart disease Myocardial infarction Father Hypertension Heart disease Denies family history of Ovarian cancer Prostate cancer Breast cancer Lung cancer Colorectal cancer Stroke Social History Smoking Status: Current every day smoker Tobacco Type: Cigarettes Age Started Using Tobacco: 38; packs per day: 0.50; Cigarettes Per Day: 1/2 pack; Second Hand Exposure: No; Do You Dip or Chew Tobacco: No; Tobacco Cessation Education Requested by Patient: No Hx Alcohol Use: No Hx Substance Use: No Preferred Language: Azeri Communication Ability: Effective Visual Impairment: Limited Hearing Ability: Normal Manager Winter Required: No Beliefs That Will Affect Care: None marital status: / Current Living Situation: Alone Current Living Situation Comment: alone, says she has home healthcare current occupational status: retired How many Children do You have: 4 Other Information That Helps Us Care for You: No Feels Safe at Home: Yes Safety Concerns: Feels Safe At This Time Childhood Exposure to Second-Hand Smoke: Yes Diet: low salt caffeine: Yes Dental Care, Regularly: No Physical Activity Frequency: Does not Exercise Seatbelt Use: always Sunscreen Use: No Assistive Devices: Walker and Other Assistive Devices Comment: walker and shower chair Review of Systems Review of Systems: All systems reviewed & are unremarkable except as noted in HPI & below Physical Exam 2 Constitutional: WD/WN, vitals as above Respiratory: normal respiratory effort, lungs clear to auscultation Cardiovascular: Rate/Rhythm: regular rate and regular rhythm Gastrointestinal (Abdomen): normal bowel sounds, soft, nontender, no hepatosplenomegaly Psychiatric: Orientation: alert and oriented x 3 Results & Data Vital Signs (Past 12 Hours) Vital Signs Temp Pulse Pulse Resp BP Pulse Ox O2 Del Method 03/19/24 13:31 97.3 F L 78 18 129/75 97 Room Air 03/19/24 11:36 98.1 F 75 18 110/72 97 Room Air 03/19/24 08:00 75 03/19/24 07:38 98.2 F 82 18 139/69 100 Room Air 03/19/24 02:50 73 03/19/24 02:38 Room Air 03/19/24 02:38 97.7 F 77 18 168/97 H 97 Room Air Coding Level of Care Code 00889 INT INP/OBS CARE 55MIN Diagnoses Diverticulitis K57.92 GI bleed K92.2
[2024-03-19] MEDS: PANTOprazole 40 MG TAB PO SCH (14:50)
--- NOTE | 2024-03-19 14:51 | XCELERA ---
[id number] \\[email or web address]\[id number]
[2024-03-19] MEDS ORDERED: WARFARIN SOD 5 MG TAB PO SCH (16:00)
--- NOTE | 2024-03-19 16:14 | Hospitalist Progress Note ---
Date of Service March 19, 2024 Assessment & Plan (1) Diverticulitis: Plan: Patient presented to the ER on 03/18 with chief complaint of black diarrhea. CTAP: mild sigmoid diverticulitis Cipro/Flagyl given on admission, transitioned to Zosyn 03/19 Clear liquid diet, advance as tolerated. GI consulted, discussed with Dr. Ackerman via tiger no need for emergent endoscopy at this time. consider underlying hematological condition for anemia continue IV heparin CBC q 4h, most recent hgb 8.2 transfuse as necessary to keep hgb > 7 BMP stable electrolytes, creatinine WNL now. AM CBC, BMP (2) GI bleed: Plan: Likely due to supratherapeutic INR on admission. Added PPI BID in event of oozing from upper GI tract. INR currently 1.8, goal therapeutic range per H&P is 3.5 - 4 Continue IV heparin w/ bridge back to warfarin therapy given patient has hx of mechanical valve. AM CBC, INR (3) Chest tightness: Plan: EKst degree AB block, RBBB unchanged, increased CO interval Troponin 14.9 with repeat pf 13.9 Hold Lisinopril 03/20 due to hypotension (93/60) Continue Metoprolol Echo 03/19: LVEF >70%. severe LVH, bi-leaflet ([facility]) Aortic mechanical prosthesis. mod-severe valvular aortic stenosis. mild pulm regurgitation. moderate mitral annular calcification. moderate mitral stenosis. Patient request we reach out to her living coach, Dr. Beth with [facility]. Continue to monitor symptoms for now. repeat EKG as needed for chest pain. Plan Chronic conditions: Neuropathy: gabapentin DVT prophylaxis: Heparin/Warfarin Diet: clear liquid, advance as tolerated Code: DNR/DNI Disposition: continued inpatient stay Updated Niece at bedside 03/19. Admission and Anticipated Discharge Date Admission Date: March 19, 2024 Subjective Patient seen and examined this morning. Patient reports some weakness and abdominal discomfort. 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 Patient reports she chest tightness/discomfort but denied SOB. She denied N/V. Reports she checks her INR at home and was told to come to the ER because of it being 8 on her home machine. Patient also tearful at time of encounter. States her children have and the holidays are hard for her. States she is close with her niece that lives local and her granddaughter that lives out of town. Physical Exam 2 Constitutional: WD/WN, vitals as above Eyes: PERRL, conjunctivae normal, anicteric sclerae Respiratory: normal respiratory effort, lungs clear to auscultation Cardiovascular: +murmur, regular rate. Gastrointestinal (Abdomen): +tenderness to palpation LLQ, + BS Results & Data Results & Data Vital Signs (Past 12 Hours) Vital Signs Temp Pulse Pulse Resp BP Pulse Ox O2 Del Method 03/19/24 15:56 36.5 C 74 18 93/60 L 98 Room Air 03/19/24 14:15 91 H 03/19/24 13:31 36.3 C L 78 18 129/75 97 Room Air 03/19/24 11:36 36.7 C 75 18 110/72 97 Room Air 03/19/24 08:00 75 03/19/24 07:38 36.8 C 82 18 139/69 100 Room Air Laboratory Results 03/19/24 10:24 03/19/24 06:45 PG Care Time/CCT Total # of Minutes Spent Total Time Spent with Patient: Total time spent is greater than 50% in coordination of care (as documented) at patient's floor/unit and/or counseling patient: Coding Level of Care Code 88728 SUB INP/OBS CARE 3/50MIN Diagnoses Diverticulitis K57.92 GI bleed K92.2 Chest tightness R07.89
[2024-03-19] MEDS: PIPERACILLIN/TAZOBACTAM 4.5 GM/100 ML BAG IV ONE (16:25)
[2024-03-19 17:01] LABS: Hematocrit (blood only) 22.4 % (37.0-47.0); Mean Corpuscular Hemoglobin 35.7 pg (25.0-34.0); Mean Corpuscular Hgb Conc 31.3 g/dL (32.0-36.0); Mean Corpuscular Volume 114.3 fL (80.0-100.0); Mean Platelet Volume 9.8 fL (9.4-12.4); Platelet Count 179 K/uL (130-400); RDW Coefficient of Variation 13.3 % (11.5-14.5); RDW Standard Deviation 54.5 fL (36.4-46.3); Red Blood Count 1.96 M/uL (4.20-5.40); White Blood Count 8.04 K/ul (4.8-10.8)
[2024-03-19 17:06] LABS: ANTI-Xa, UFH(UnfractionatedHep 0.97 IU/ml (0.3-0.7)
[2024-03-19] MEDS ORDERED: SODIUM CHLORIDE 0.9% 100 ML IV PRN (17:16)
[2024-03-19] MEDS ORDERED: SODIUM CHLORIDE 0.9% 50 ML IV PRN (17:16)
[2024-03-19] MEDS: LATANOPROST 0.005% OP SOLN 2.5 ML BTL OPB SCH (20:04)
[2024-03-19] MEDS: PIPERACILLIN/TAZOBACTAM 4.5 GM/100 ML BAG IV SCH (20:06)
[2024-03-19 23:28] LABS: Hematocrit (blood only) 21.7 % (37.0-47.0); Hemoglobin 6.7 g/dl (12.0-16.0); Mean Corpuscular Hemoglobin 35.6 pg (25.0-34.0); Mean Corpuscular Hgb Conc 30.9 g/dL (32.0-36.0); Mean Corpuscular Volume 115.4 fL (80.0-100.0); Mean Platelet Volume 10.3 fL (9.4-12.4); Nucleated RBC # (auto) 0.02 K/uL (0.00-0.12); Nucleated RBC % (auto) 0.3 %; Platelet Count 185 K/uL (130-400); RDW Coefficient of Variation 13.2 % (11.5-14.5); Red Blood Count 1.88 M/uL (4.20-5.40); White Blood Count 7.27 K/ul (4.8-10.8)
[2024-03-20 02:35] LABS: Hematocrit (blood only) 26.3 % (37.0-47.0); Hemoglobin 8.1 g/dl (12.0-16.0); Mean Corpuscular Hemoglobin 34.2 pg (25.0-34.0); Mean Corpuscular Hgb Conc 30.8 g/dL (32.0-36.0); Mean Platelet Volume 10.2 fL (9.4-12.4); Nucleated RBC # (auto) 0.02 K/uL (0.00-0.12); Nucleated RBC % (auto) 0.3 %; Platelet Count 176 K/uL (130-400); RDW Coefficient of Variation 14.9 % (11.5-14.5); RDW Standard Deviation 60.3 fL (36.4-46.3); Red Blood Count 2.37 M/uL (4.20-5.40); White Blood Count 7.41 K/ul (4.8-10.8)
[2024-03-20 07:08] LABS: Hematocrit (blood only) 27.3 % (37.0-47.0); Hemoglobin 8.5 g/dl (12.0-16.0); Mean Corpuscular Hemoglobin 34.4 pg (25.0-34.0); Mean Corpuscular Hgb Conc 31.1 g/dL (32.0-36.0); Mean Corpuscular Volume 110.5 fL (80.0-100.0); Mean Platelet Volume 9.7 fL (9.4-12.4); Platelet Count 175 K/uL (130-400); RDW Coefficient of Variation 15.5 % (11.5-14.5); RDW Standard Deviation 60.7 fL (36.4-46.3); Red Blood Count 2.47 M/uL (4.20-5.40); White Blood Count 7.52 K/ul (4.8-10.8)
[2024-03-20 07:23] LABS: BUN Creatinine Ratio 28.8 (10-20); Calcium 8.3 mg/dl (8.6-10.3); Creatinine Clr Calc Pharmacy 26.2 ml/min; Potassium 4.3 mmol/L (3.5-5.1)
[2024-03-20 07:32] LABS: INR 1.3 (0.9-1.1); Prothrombin Time 13.4 Seconds (9.0-12.0)
[2024-03-20 09:13] LABS: Hematocrit (blood only) 27.1 % (37.0-47.0); Hemoglobin 8.5 g/dl (12.0-16.0); Mean Corpuscular Hgb Conc 31.4 g/dL (32.0-36.0); Mean Corpuscular Volume 111.5 fL (80.0-100.0); Mean Platelet Volume 10.2 fL (9.4-12.4); Platelet Count 190 K/uL (130-400); RDW Coefficient of Variation 15.6 % (11.5-14.5); RDW Standard Deviation 62.3 fL (36.4-46.3); Red Blood Count 2.43 M/uL (4.20-5.40); White Blood Count 7.53 K/ul (4.8-10.8)
[2024-03-20] MEDS: SODIUM CHLORIDE 0.9% 1,000 ML IV SCH (09:59)
--- NOTE | 2024-03-20 10:28 | Gastroenterology Progress Note ---
Date of Service March 20, 2024 Assessment & Plan (1) GI bleed: (2) Macrocytic anemia: Plan Patient with some ongoing rectal bleeding with bowel movements. - Awaiting cardiology clearance prior to endoscopic work up. - continue to follow hgb/hct. transfuse as needed. - further recommendations to follow, see MD eddy. Admission and Anticipated Discharge Date Admission Date: March 19, 2024 Supervising Physician Co-Signing Physician Notes I examined the patient and reviewed patient's chart , laboratory data and imagin g studies. I agree with with assessment and plan of care as suggested by advanced practice provider. Continues with rectal bleeding, dark blood. Hemoglobin decreased to 7.6. The patient is complaining of fatigue. Echocardiogram unremarkable. Discussed with cardiology, okay to proceed with endoscopic evaluation. To schedule for EGD and colonoscopy tomorrow. Subjective Patient had some further episodes of rectal bleeding last evening with bowel movements. she has been incontinent of stools per nursing. she received one unit of PRBC last evening. she still complains of being weak, short of breath, and having chest discomfort. we are awaiting cardiology clearance prior to colonoscopy. Per nursing, heparin has now been held. 03/19/24 hgb 8.7 to 7 to 6.7. 03/20/24 hgb 8.1 to 8.5. Review of Systems Review of Systems: All systems reviewed & are unremarkable except as noted in HPI & below Physical Exam Constitutional: WD/WN, vitals as above Respiratory: normal respiratory effort, lungs clear to auscultation Cardiovascular: Rate/Rhythm: regular rate and regular rhythm Gastrointestinal (Abdomen): normal bowel sounds, soft, nontender, no hepatosplenomegaly Psychiatric: Orientation: alert and oriented x 3 Results & Data Results & Data Vital Signs (Past 12 Hours) Vital Signs Temp Pulse Pulse Pulse Resp BP BP 03/20/24 07:32 97.9 F 69 18 112/70 03/20/24 03:01 97.7 F 66 18 03/20/24 01:26 66 03/20/24 01:00 97.7 F 65 16 94/63 L 03/20/24 00:48 03/19/24 23:54 97.9 F 72 16 93/62 L 03/19/24 23:24 98.1 F 70 16 111/72 03/19/24 23:09 97.9 F 69 16 94/64 L 03/19/24 23:05 69 16 94/64 L 03/19/24 22:50 97.9 F 68 18 81/46 L BP Pulse Ox O2 Del Method 03/20/24 07:32 87/61 L 99 Room Air 03/20/24 03:01 98/64 L 99 Room Air 03/20/24 01:26 03/20/24 01:00 98 03/20/24 00:48 Room Air 03/19/24 23:54 99 03/19/24 23:24 99 03/19/24 23:09 98 03/19/24 23:05 98 03/19/24 22:50 96 Coding Level of Care Code 28269 SUB INP/OBS CARE 05/03MIN Diagnoses GI bleed K92.2 Macrocytic anemia D53.9
[2024-03-20 12:47] LABS: Hematocrit (blood only) 24.5 % (37.0-47.0); Hemoglobin 7.6 g/dl (12.0-16.0); Mean Corpuscular Hemoglobin 34.7 pg (25.0-34.0); Mean Corpuscular Volume 111.9 fL (80.0-100.0); Mean Platelet Volume 10.1 fL (9.4-12.4); Nucleated RBC # (auto) 0.02 K/uL (0.00-0.12); Nucleated RBC % (auto) 0.3 %; Platelet Count 165 K/uL (130-400); RDW Standard Deviation 65.7 fL (36.4-46.3); Red Blood Count 2.19 M/uL (4.20-5.40); White Blood Count 6.72 K/ul (4.8-10.8)
--- NOTE | 2024-03-20 15:03 | Cardiology Consultation ---
Date of Consultation March 20, 2024 Assessment & Plan (1) GI bleed: (2) Symptomatic anemia: (3) H/O mechanical aortic valve replacement: (4) Aortic stenosis: Plan Patient admitted for SOB, weakness, GI bleed. Hbg trended down to 6.9. Received 1 unit PRBC's. Hbg trending lower again today. would repeat every 6-8 hours. Patient reported SOB and chest tightness upon admission. Likely due to acute GI bleed and symptomatic anemia. 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 Echo with hyperdynamic LVEF > 70%, moderate/severe aortic stenosis of her mechanical aortic valve prosthesis. Stable from prior outpatient echo. Continue metoprolol 12.5 mg daily Coumadin on hold given acute GI bleed. Initially treated with IV heparin bridge, but heparin now on hold as patient had recurrent episodes of melana today. She was hypotensive earlier, improved with IV fluids. hold lisinopril. Mild GERSON noted today. Monitor. Cardiovascular Risks/benefits of colonoscopy discussed with patient. She is understanding of these risks and the benefits and wishes to proceed. Further cardiac testing is not warranted at this time. Resume Heparin/Coumadin when bleeding resolves and hbg stabilizes. Case discussed with Dr. Akers I spent a total of 50 minutes on the date of service in preparation, delivery, and documentation of the care provided to this patient, excluding any time spent in the performance of separately billed services. Radha Patino PA-C Department of Cardiology, [facility] This chart was completed in part utilizing Speech Voice Recognition Software. Grammatical errors, random word insertions, pronoun errors, and incomplete sentences are an occasional consequence of this system due to software limitations, ambient noise, and hardware issues. Any formal questions or concerns about the content, text, or information contained within the body of this dictation should be directly addressed to the provider for clarification. Plan for colonoscopy tomorrow. Supervising Physician Co-Signing Physician Notes Attending attestation: Case reviewed with the advanced practitioner. I have personally performed a history and physical examination on the patient. I have reviewed the advanced practitioner's documentation on the date of service referenced in note, and I agree with, and take responsibility for the plan of care. Subjective: Patient describes that symptoms leading up to presentation to the emergency room included generalized weakness, dizziness, and black stool with bowel movement. She notes coexistent chest pressure at that time but not otherwise and describes a chronic degree of exertional dyspnea in the recent past otherwise. Exam: Cardiovascular regular rhythm, 1/6 systolic murmur, no edema Data: Telemetry reveals sinus rhythm with IVCD in the 60s Impression/ Plan: Patient with chronic dyspnea, symptoms seem to have been acutely worse in the setting of anemia. I do not think her symptoms are suggestive of an acute coronary syndrome. Patient has a prosthetic valve that was placed in 1984 with at least a moderate degree of prosthetic stenosis. Surgical intervention in this seemingly frail 83-year-old female with certainly be high risk if indicated. Recommend holding Coumadin and heparin and proceeding with EGD colonoscopy if felt indicated by GI. I believe patient is stable from a cardiac perspective for sedation. I spent a total of 20 minutes coordinating, documenting, and providing care for this patient excluding time spent in the performance of separately billed s ervices or time spent by another provider. Elmo Akers DO History of Present Illness Reason for Consultation: Preop; Mechanical aortic valve Requesting Physician: Attending Physician: Loki Munoz History of Present Illness Patient is a 83 year old female, known to [facility], Dr. Beth. History includes: 1. Valvular heart disease status post aortic valve replacement, mechanical 1984, [facility] device per patient recall. chronic warfarin for anticoagulation with goal INR 2.5-3.5 2. Hypertension 3. CKD stage 3 4. Glaucoma 5. Right bundle-branch block Patient presented to [facility] with complaints of worsening SOB, chest tightness, and abdominal pain with GI bleed. Hbg trending down to 6.7. Received 1 unit PRBC yesterday. Hbg improved to 8.5 and then back down to 7.6. INR 1.3. Coumadin on hold. initially started on heparin but she had several recurrent episodes of melena today and heparin now on hold. Cardiology consulted due to chest tightness and preop colonoscopy. HS troponin has been 12.1, 14.9 on repeat, 13.9. Patient reports just feeling weak and tired. No current chest pain. Prior to this week and these current issues with bleeding she was doing well. No exertional chest pain or dyspnea with daily chores. 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 She denies orhtopnea, PND or edema. No palpitations. She had dizziness earlier and had significant hypotensive episodes, improved with IV lfluds. Antihypertensives on hold. At time of consult, patient resting in bed quietly. Feeling ok. No current chest pain or dyspnea at rest. Allergies Allergy/AdvReac Type Severity Reaction Status Date / Time No Known Allergies Allergy Unverified 02/05/24 15:02 Home Medications Medication Instructions Recorded Confirmed Type latanoprost 0.005 % eye drops 1 drp OPB PM 07/31/23 03/18/24 History furosemide 20 mg tablet 20 mg PO DAILY #90 tabs 08/20/23 03/18/24 Rx warfarin 5 mg tablet 5 mg PO DAILY 08/20/23 03/18/24 History lisinopril 10 mg tablet 10 mg PO DAILY #90 tabs 10/30/23 03/18/24 Rx Shower Chair #1 ea 11/20/23 03/18/24 Rx diclofenac sodium 1 % topical gel 2 g topical QID PRN Pain 02/05/24 03/18/24 History (Arthritis Pain (diclofenac)) tramadol 50 mg tablet 50 mg PO BID PRN pain 02/05/24 03/18/24 History gabapentin 100 mg capsule 100 mg PO TID #90 caps 02/28/24 03/18/24 Rx brimonidine 0.2 % eye drops 1 drp OPB TID 03/18/24 03/18/24 History dorzolamide 2 % eye drops 1 drp OPB BID 03/18/24 03/18/24 History metoprolol succinate 25 mg 12.5 mg PO QAM 03/18/24 03/18/24 History tablet,extended release 24 hr Patient History Medical History Current every day smoker On warfarin therapy Hypertension Surgical History H/O mechanical aortic valve replacement Family History Brother Hypertension Heart disease Sister Hypertension Heart disease Mother Hypertension Heart disease Myocardial infarction Father Hypertension Heart disease Denies family history of Ovarian cancer Prostate cancer Breast cancer Lung cancer Colorectal cancer Stroke Social History Smoking Status: Current every day smoker Tobacco Type: Cigarettes Age Started Using Tobacco: 38; packs per day: 0.50; Cigarettes Per Day: 1/2 pack; Second Hand Exposure: No; Do You Dip or Chew Tobacco: No; Tobacco Cessation Education Requested by Patient: No Hx Alcohol Use: No Hx Substance Use: No Preferred Language: Tristanian Communication Ability: Effective Visual Impairment: Limited Hearing Ability: Normal 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 Beliefs That Will Affect Care: None marital status: / Current Living Situation: Alone Current Living Situation Comment: alone, says she has home healthcare current occupational status: retired How many Children do You have: 4 Other Information That Helps Us Care for You: No Feels Safe at Home: Yes Safety Concerns: Feels Safe At This Time Childhood Exposure to Second-Hand Smoke: Yes Diet: low salt caffeine: Yes Dental Care, Regularly: No Physical Activity Frequency: Does not Exercise Seatbelt Use: always Sunscreen Use: No Assistive Devices: Walker Assistive Devices Comment: walker and shower chair Review of Systems Review of Systems: All systems reviewed & are unremarkable except as noted in HPI & below Physical Exam Constitutional: WD/WN, vitals as above + obese; no acute distress Neck: + thick neck Respiratory: normal respiratory effort; no labored breathing Auscultation: lungs clear to auscultation bilaterally Cardiovascular: Rate/Rhythm: regular rhythm Heart Sounds: + murmur (II/ systolic murmur) Vessels: no JVD Extremities: no edema Gastrointestinal (Abdomen): normal bowel sounds, soft, nontender, no hepatosplenomegaly Neurologic: PERRL, EOMI, accommodation nl, no face palsy, no dysarthria Results & Data Vital Signs (Past 12 Hours) Vital Signs Temp Pulse Pulse Pulse Resp BP BP 03/20/24 11:22 36.6 C 71 18 123/70 03/20/24 07:32 36.6 C 69 18 112/70 87/61 L 03/20/24 07:00 68 03/20/24 03:01 36.5 C 66 18 98/64 L Pulse Ox O2 Del Method 03/20/24 11:22 98 Room Air 03/20/24 07:32 99 Room Air 03/20/24 07:00 03/20/24 03:01 99 Room Air Laboratory Results Coagulation 03/20/24 Range/Units 06:53 PT 13.4 H (9.0-12.0) Seconds CBC 03/19/24 03/19/24 03/20/24 Range/Units 16:42 22:31 02:04 WBC 8.04 7.27 7.41 (4.8-10.8) K/ul RBC 1.96 L 1.88 L 2.37 L (4.20-5.40) M/uL Hgb 7.0 L 6.7 L* 8.1 L (12.0-16.0) g/dl Hct 22.4 L 21.7 L 26.3 L (37.0-47.0) % Plt Count 179 185 176 (130-400) K/uL 03/20/24 03/20/24 03/20/24 Range/Units 06:53 08:36 12:23 WBC 7.52 7.53 6.72 (4.8-10.8) K/ul RBC 2.47 L 2.43 L 2.19 L (4.20-5.40) M/uL Hgb 8.5 L 8.5 L 7.6 L (12.0-16.0) g/dl Hct 27.3 L 27.1 L 24.5 L (37.0-47.0) % Plt Count 175 190 165 (130-400) K/uL Comprehensive Metabolic Panel 03/20/24 Range/Units 06:53 Sodium 143 (136-145) mmol/L Potassium 4.3 (3.5-5.1) mmol/L Chloride 117 H (98-107) mmol/L Carbon Dioxide 19 L (21-32) mmol/L BUN 45 H (6-23) mg/dl Creatinine 1.56 H D (0.6-1.2) mg/dl Glucose 82 (70-99(Fasting)) mg/dl Calcium 8.3 L (8.6-10.3) mg/dl Intake and Output 03/20/24 03/20/24 03/20/24 06:59 14:59 22:59 Intake Total 530 / 1206.017 100 / 100 Output Total Balance 529 / 1205.017 100 / 100 Intake: IV 100 / 356.017 100 / 100 Piperacillin/Tazobactam 4.5 gm 100 / 100 100 / 100 In 100 ml @ 25 mls/hr IV Q8H MCKENZIE Rx#:[id number] Oral 120 / 540 Intake (Blood Product) Amt 310 / 310 Packed Cells, Leukoreduced 310 / 310 Unit [id number] Output: # Bowel Movements / Other: # Unmeasured Voids 1 Diagnostic Findings Telemetry reviewed: NSR, no arrhythmias EKG reviewed from 03/18/24: NSR wiht 1st degree AV block RBBB Compared to prior EKG's, no significant changes noted Echo report reviewed dated 03/19/24: LVEF is hyperdynamic at > 70% severe concentric LVH RV is normal in size and function Bileaflet aortic mechanical valve prosthesis with moderate/severe Moderate mitral stenosis Mild progression of aortic and mitral stenosis, but no significant changes from prior echo Abdomen/Pelvis CT 03/18/24 17:36 IMPRESSION: 1. Mild acute diverticulitis of the sigmoid colon. No perforation or abscess. 2. Small hiatal hernia. 3. Moderate right hydronephrosis to the level of the UPJ. No obstructing stone or perinephric laboratory changes suggest this is chronic. Head CT 03/18/24 17:46 Exam(s): CT HEAD Without Contrast EXAM: CT Head Without Intravenous Contrast CLINICAL HISTORY: Reason for exam: arnold. TECHNIQUE: Axial computed tomography images of the head/brain without intravenous contrast. CTDI is 36.43 mGy and DLP is 546.36 mGy-cm. Automated exposure control was utilized for the study. A dose lowering technique was utilized adhering to the principles of ALARA. COMPARISON: 07/30/2023 FINDINGS: Brain: No intracranial hemorrhage, mass-effect, or cerebral edema. Global parenchymal atrophy. Periventricular and subcortical low attenuation which is nonspecific but favored to represent chronic microvascular ischemic changes. Ventricles: Unremarkable. Bones/joints: Unremarkable. No fracture. Soft tissues: Unremarkable. Sinuses: No acute sinusitis. Mastoid air cells: Unremarkable as visualized. IMPRESSION: 1. No acute intracranial abnormality. Electronically signed by: Ed Howard MD 03/18/24 20:05 PM Medications Administered Current Inpatient Medications Acetaminophen (Acetaminophen 325 Mg Tab) 650 mg PO Q4H PRN PRN Reason: pain/fever Stop: 04/18/24 02:30 Brimonidine Tartrate (Brimonidine Tartrate 0.2% 5ml) 1 drops OPB TID [facility]IE Stop: 04/18/24 08:59 Last Admin: 03/20/24 13:18 Dose: 1 drops Dorzolamide HCl (Dorzolamide Hcl 2% Oph Soln 10 Ml Btl) 1 drops OPB BID [facility] Stop: 04/18/24 08:59 Last Admin: 03/20/24 07:34 Dose: 1 drops Gabapentin (Gabapentin 100 Mg Cap) 100 mg PO TID [facility] Stop: 04/18/24 08:59 Last Admin: 03/20/24 13:18 Dose: 100 mg Heparin Sodium/Dextrose (Heparin Sodium/Dextrose) 25,000 units in 500 mls @ 0 mls/hr IV .Q0M [facility]; Protocol Stop: 04/18/24 09:59 Last Titration: 03/19/24 17:07 Dose: 0 units/hr, 0 mls/hr Piperacillin Sod/Tazobactam Sod (Zosyn) 4.5 gm in 100 mls @ 25 mls/hr IV Q8H [facility]; Protocol Stop: 03/29/24 20:59 Last Admin: 03/20/24 13:17 Dose: 25 mls/hr Sodium Chloride (Nss) 1,000 mls @ 125 mls/hr IV .Q8H [facility] Stop: 03/20/24 16:14 Last Admin: 03/20/24 09:59 Dose: 125 mls/hr Latanoprost (Latanoprost 0.005% Op Soln 2.5 Ml Btl) 1 drops OPB PM [facility] Stop: 04/18/24 20:59 Last Admin: 03/19/24 20:04 Dose: 1 drops Lisinopril (Lisinopril 10 Mg Tab) 10 mg PO DAILY [facility] Stop: 04/18/24 08:59 Last Admin: 03/19/24 09:33 Dose: 10 mg Metoprolol Succinate (Metoprolol Succ 25mg Ext Rel Tab) 12.5 mg PO QAM [facility] Stop: 04/18/24 08:59 Last Admin: 03/20/24 10:21 Dose: Not Given Pantoprazole Sodium (Pantoprazole 40 Mg Tab) 40 mg PO BID [facility] Stop: 04/18/24 13:29 Last Admin: 03/20/24 07:34 Dose: 40 mg Tramadol HCl (Tramadol Hcl 50 Mg Tablet) 50 mg PO BID PRN PRN Reason: pain Stop: 04/18/24 02:30 Last Admin: 03/20/24 07:40 Dose: 50 mg Warfarin Sodium (Warfarin Sod 5 Mg Tab) 5 mg PO DAILY@1600 MCKENZIE Stop: 04/19/24 15:59
[2024-03-20] MEDS: WARFARIN SOD 5 MG TAB PO SCH (15:42)
--- NOTE | 2024-03-20 16:01 | Hospitalist Progress Note ---
Date of Service March 20, 2024 Assessment & Plan (1) GI bleed: Plan: GI bleed due to anticoagulant therapy Likely due to supratherapeutic INR on admission. Added PPI BID in event of oozing from upper GI tract. INR currently 1.3, goal therapeutic range per H&P is 3.5 - 4 Anticoagulation on hold as patient continues to bleed. 3 episodes of bleeding today thus far and hgb continues to slowly drop following transfusion on 03/19. anticipate patient will require additional transfuse this evening, 03/20 pending lab results AM CBC, INR (2) Diverticulitis: Plan: Patient presented to the ER on 03/18 with chief complaint of black diarrhea. CTAP: mild sigmoid diverticulitis Cipro/Flagyl given on admission, transitioned to Zosyn 03/19 Clear liquid diet GI consulted Plan for EGD and colonoscopy 03/21 bowel prep ordered to complete 03/19. NPO after midnight anticoagulation on hold (heparin and warfarin) CBC q 4h, most recent hgb 7.6 transfuse as necessary to keep hgb > 7 BMP stable electrolytes, creatinine increased to 1.56 GERSON secondary to anemia IVF also given, Lisinopril on hold AM CBC, BMP (3) Chest tightness: Plan: EKst degree AB block, RBBB unchanged, increased AR interval Troponin 14.9 with repeat pf 13.9 Hold Lisinopril 03/20 due to hypotension (93/60) Continue Metoprolol Echo 03/19: LVEF >70%. severe LVH, bi-leaflet ([facility]) Aortic mechanical prosthesis. mod-severe valvular aortic stenosis. mild pulm regurgitation. moderate mitral annular calcification. moderate mitral stenosis. 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 Beth with [facility] [place]. Cardiology consulted 03/20, recommendations reviewed Patient okay to proceed with endoscopies resume anticoagulation when bleeding resolves and hgb stabilizes. Continue to monitor symptoms for now. repeat EKG as needed for chest pain. (4) Hypertension: Plan: Patient on lisinopril 10mg PO daily outpatient hold in the setting of an GERSON and hypotension s/p 1L IVF 03/20. Continue to monitor, patient currently normotensive. Plan Chronic conditions: Neuropathy: gabapentin DVT prophylaxis: Heparin/Warfarin Diet: clear liquid Code: DNR/DNI Disposition: continued inpatient stay Admission and Anticipated Discharge Date Admission Date: March 19, 2024 Results & Data Results & Data Vital Signs (Past 12 Hours) Vital Signs Temp Pulse Pulse Pulse Resp BP BP 03/20/24 15:17 36.7 C 74 18 118/76 03/20/24 11:22 36.6 C 71 18 123/70 03/20/24 07:32 36.6 C 69 18 112/70 87/61 L 03/20/24 07:00 68 Pulse Ox O2 Del Method 03/20/24 15:17 100 Room Air 03/20/24 11:22 98 Room Air 03/20/24 07:32 99 Room Air 03/20/24 07:00 PG Care Time/CCT Total # of Minutes Spent Total Time Spent with Patient: Total time spent is greater than 50% in coordination of care (as documented) at patient's floor/unit and/or counseling patient: Coding Level of Care Code 58811 SUB INP/OBS CARE 2/35MIN Diagnoses GI bleed K92.2 Diverticulitis K57.92 Chest tightness R07.89 Hypertension I10
[2024-03-20 17:01] LABS: Hematocrit (blood only) 24.8 % (37.0-47.0); Hemoglobin 7.7 g/dl (12.0-16.0); Mean Corpuscular Hemoglobin 35.2 pg (25.0-34.0); Mean Corpuscular Volume 113.2 fL (80.0-100.0); Nucleated RBC # (auto) 0.02 K/uL (0.00-0.12); Nucleated RBC % (auto) 0.3 %; Platelet Count 178 K/uL (130-400); RDW Coefficient of Variation 16.2 % (11.5-14.5); RDW Standard Deviation 66.5 fL (36.4-46.3); Red Blood Count 2.19 M/uL (4.20-5.40); White Blood Count 5.89 K/ul (4.8-10.8)
[2024-03-20] MEDS: bisacodyL 5 MG TABEC PO ONE ×2 (17:22→17:24)
[2024-03-20] MEDS: POLYETHYLENE (MIRALAX) 17 GM PACK PO SCH (17:25)
[2024-03-20 20:49] LABS: Hematocrit (blood only) 26.3 % (37.0-47.0); Hemoglobin 7.9 g/dl (12.0-16.0); Mean Corpuscular Hemoglobin 34.1 pg (25.0-34.0); Mean Corpuscular Volume 113.4 fL (80.0-100.0); Mean Platelet Volume 9.7 fL (9.4-12.4); Nucleated RBC # (auto) 0.03 K/uL (0.00-0.12); Nucleated RBC % (auto) 0.4 %; Platelet Count 173 K/uL (130-400); RDW Coefficient of Variation 16.2 % (11.5-14.5); RDW Standard Deviation 66.6 fL (36.4-46.3); Red Blood Count 2.32 M/uL (4.20-5.40); White Blood Count 6.88 K/ul (4.8-10.8)
[2024-03-20] MEDS: MELATONIN 3 MG TAB PO PRN (23:39)
[2024-03-21 01:19] LABS: Hemoglobin 7.7 g/dl (12.0-16.0); Mean Corpuscular Hemoglobin 34.7 pg (25.0-34.0); Mean Corpuscular Hgb Conc 30.8 g/dL (32.0-36.0); Mean Corpuscular Volume 112.6 fL (80.0-100.0); Mean Platelet Volume 9.8 fL (9.4-12.4); Platelet Count 168 K/uL (130-400); RDW Coefficient of Variation 16.2 % (11.5-14.5); RDW Standard Deviation 65.7 fL (36.4-46.3); Red Blood Count 2.22 M/uL (4.20-5.40); White Blood Count 6.39 K/ul (4.8-10.8)
[2024-03-21 08:12] LABS: Hematocrit (blood only) 27.3 % (37.0-47.0); Hemoglobin 8.4 g/dl (12.0-16.0); Mean Corpuscular Hemoglobin 34.4 pg (25.0-34.0); Mean Corpuscular Hgb Conc 30.8 g/dL (32.0-36.0); Mean Corpuscular Volume 111.9 fL (80.0-100.0); Mean Platelet Volume 9.9 fL (9.4-12.4); Nucleated RBC # (auto) 0.02 K/uL (0.00-0.12); Nucleated RBC % (auto) 0.3 %; Platelet Count 184 K/uL (130-400); RDW Coefficient of Variation 16.2 % (11.5-14.5); RDW Standard Deviation 65.4 fL (36.4-46.3); Red Blood Count 2.44 M/uL (4.20-5.40); White Blood Count 5.82 K/ul (4.8-10.8)
[2024-03-21] MEDS: ONDANSETRON INJ 2 MG/ML 2 ML VIAL IV STA (08:29)
[2024-03-21 08:35] LABS: INR 1.5 (0.9-1.1); Prothrombin Time 15.3 Seconds (9.0-12.0)
[2024-03-21 08:38] LABS: Calcium 8.5 mg/dl (8.6-10.3); Potassium 4.5 mmol/L (3.5-5.1)
[2024-03-21 08:44] LABS: Creatinine Clr Calc Pharmacy 27.7 ml/min
--- NOTE | 2024-03-21 09:30 | History & Physical Bridge Note ---
Date of Service March 21, 2024 History & Physical Bridge Note I have examined the patient, reviewed the History & Physical and in the interval since the performance of the History & Physical I have noted the following changes of clinical significance: no changes noted. Patient finished her prep this morning. stools are still dark with stool. she was incontinent of stool over night and had rectal tube placed. no sob, chest pain, nausea, vomiting, abdominal pain. - Discussed with Dr. Ackerman, will trial some tap water enemas this morning and plan to proceed with EGD and colonoscopy later today. Supervising Physician Co-Signing Physician Notes I examined the patient and reviewed patient's chart , laboratory data and imaging studies. I agree with with assessment and plan of care as suggested by advanced practice provider
--- NOTE | 2024-03-21 11:10 | Cardiology Progress Note ---
Date of Service March 21, 2024 Assessment & Plan (1) GI bleed: (2) Symptomatic anemia: (3) H/O mechanical aortic valve replacement: (4) Aortic stenosis: Plan 03/20/24: Patient admitted for SOB, weakness, GI bleed. Hbg trended down to 6.9. Received 1 unit PRBC's. Hbg trending lower again today. would repeat every 6-8 hours. Patient reported SOB and chest tightness upon admission. Likely due to acute GI bleed and symptomatic anemia. 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 Echo with hyperdynamic LVEF > 70%, moderate/severe aortic stenosis of her mechanical aortic valve prosthesis. Stable from prior outpatient echo. Continue metoprolol 12.5 mg daily Coumadin on hold given acute GI bleed. Initially treated with IV heparin bridge, but heparin now on hold as patient had recurrent episodes of melana today. She was hypotensive earlier, improved with IV fluids. hold lisinopril. Mild GERSON noted today. Monitor. Cardiovascular Risks/benefits of colonoscopy discussed with patient. She is understanding of these risks and the benefits and wishes to proceed. Further cardiac testing is not warranted at this time. Resume Heparin/Coumadin when bleeding resolves and hbg stabilizes. 03/21/24: Ongoing melena noted today. Plans for colonoscopy later today after prep is finished. Hbg slightly improved this morning at 8.4. Does not appear she received additional transfusion. 1 total PRBC unit given thus far since admission. Monitor closely. IV heparin on hold. Coumadin on hold given significant acute bleeding. Patient with Mechanical aortic valve. Once Hbg stabilizes, and source of bleeding has been identified, symptoms improve, will need to resume Coumadin, likely without bridge. She has moderate/severe stenosis of her prosthetic valve this was noted back in October and relatively stable. Proceed with colonoscopy as planned. No further cardiac testing warranted at this time Case discussed with Dr. Akers I spent a total of 30 minutes on the date of service in preparation, delivery, and documentation of the care provided to this patient, excluding any time spent in the performance of separately billed services. Radha Patino PA-C Department of Cardiology, [facility] This chart was completed in part utilizing Speech Voice Recognition Software. Grammatical errors, random word insertions, pronoun errors, and incomplete sentences are an occasional consequence of this system due to software limitations, ambient noise, and hardware issues. Any formal questions or concerns about the content, text, or information contained within the body of this dictation should be directly addressed to the provider for clarification. Plan for colonoscopy tomorrow. Admission and Anticipated Discharge Date Admission Date: March 19, 2024 Supervising Physician Co-Signing Physician Notes Attending attestation: Case reviewed with the advanced practitioner. I have personally performed a history and physical examination on the patient. I have reviewed the advanced practitioner's documentation on the date of service referenced in note, and I agree with, and take responsibility for the plan of care. Patient had been in the endoscopy lab when I had attempted to see her earlier today. I now saw her back on the telemetry floor postprocedure. No definite culprit for gastrointestinal bleeding noted with noted diverticular disease. The patient's INR was supratherapeutic at 6 on presentation. Patient does have a mechanical aortic valve prosthesis placed in 1984 which would be at high risk for thrombosis. Would recommend reinitiating Coumadin either today or tomorrow without bridge therapy with plans for goal INR in the range of 2.5-3.5, I think it would be ideal just to aim for 3 as her goal. I spent a total of 20 minutes coordinating, documenting, and providing care for this patient excluding time spent in the performance of separately billed services or time spent by another provider. Elmo Akers, DO Subjective Patient resting in bed. Feeling weak and washed out. Still having significant melena this morning. Plans for colonoscopy today. She denies acute cheest pain. SOB at baseline. Likely due to anemia and acute blood loss. Hbg mildly improved this morning at 8.4. Review of Systems Review of Systems: All systems reviewed & are unremarkable except as noted in HPI & below Physical Exam Constitutional: WD/WN, vitals as above + obese; no acute distress Neck: + thick neck Respiratory: normal respiratory effort; no labored breathing Auscultation: lungs clear to auscultation bilaterally Cardiovascular: Rate/Rhythm: regular rhythm Heart Sounds: + murmur (II/ systolic murmur) Vessels: no JVD Extremities: no edema Gastrointestinal (Abdomen): normal bowel sounds, soft, nontender, no hepatosplenomegaly Neurologic: PERRL, EOMI, accommodation nl, no face palsy, no dysarthria Results & Data Vital Signs (Past 12 Hours) Vital Signs Temp Pulse Resp BP BP Pulse Ox O2 Del Method 03/21/24 09:00 36.5 C 72 16 138/65 96 Room Air 03/21/24 03:21 36.5 C 71 18 112/61 96 Room Air 03/20/24 23:36 36.6 C 72 18 104/71 100 Room Air Laboratory Results Coagulation 03/21/24 Range/Units 07:43 PT 15.3 H (9.0-12.0) Seconds CBC 03/20/24 03/20/24 03/20/24 Range/Units 12: 16:33 20:07 WBC 6.72 5.89 Cancelled (4.8-10.8) K/ul RBC 2.19 L 2.19 L Cancelled (4.20-5.40) M/uL Hgb 7.6 L 7.7 L Cancelled (12.0-16.0) g/dl Hct 24.5 L 24.8 L Cancelled (37.0-47.0) % Plt Count 165 178 Cancelled (130-400) K/uL 03/20/24 03/21/24 03/21/24 Range/Units 20:35 01:00 07:43 WBC 6.88 6.39 5.82 (4.8-10.8) K/ul RBC 2.32 L 2.22 L 2.44 L (4.20-5.40) M/uL Hgb 7.9 L 7.7 L 8.4 L (12.0-16.0) g/dl Hct 26.3 L 25.0 L 27.3 L (37.0-47.0) % Plt Count 173 168 184 (130-400) K/uL Comprehensive Metabolic Panel 03/21/24 Range/Units 07:43 Sodium 144 (136-145) mmol/L Potassium 4.5 (3.5-5.1) mmol/L Chloride 119 H (98-107) mmol/L Carbon Dioxide 19 L (21-32) mmol/L BUN 34 H (6-23) mg/dl Creatinine 1.48 H (0.6-1.2) mg/dl Glucose 88 (70-99(Fasting)) mg/dl Calcium 8.5 L (8.6-10.3) mg/dl Intake and Output 03/20/24 03/21/24 03/21/24 22:59 06:59 14:59 Intake Total 2380 / 2580 100 / 2580 100 / 100 Output Total Balance 2379 / 2579 100 / 2579 100 / 100 Intake: IV 1100 / 1300 100 / 1300 100 / 100 Piperacillin/Tazobactam 4.5 gm 100 / 300 100 / 300 100 / 100 In 100 ml @ 25 mls/hr IV Q8H [facility] Rx#:[id number] Sodium Chloride 0.9% 1,000 ml @ 1000 / 1000 125 mls/hr IV .Q8H [facility] Rx#: [id number] Oral 1280 / 1280 Output: # Bowel Movements Other: Other Intake Source SIPS NPO # Unmeasured Voids 1 Weight 79.1 kg Weight Measurement Method Built in [facility] Diagnostic Findings Telemetry reviewed: NSR ranging 60-80 bmp Medications Administered Current Inpatient Medications Acetaminophen (Acetaminophen 325 Mg Tab) 650 mg PO Q4H PRN PRN Reason: pain/fever Stop: 04/18/24 02:30 Brimonidine Tartrate (Brimonidine Tartrate 0.2% 5ml) 1 drops OPB TID [facility] Stop: 04/18/24 08:59 Last Admin: 03/21/24 08:29 Dose: 1 drops Dorzolamide HCl (Dorzolamide Hcl 2% Oph Soln 10 Ml Btl) 1 drops OPB BID [facility] Stop: 04/18/24 08:59 Last Admin: 03/21/24 08:29 Dose: 1 drops Gabapentin (Gabapentin 100 Mg Cap) 100 mg PO TID [facility] Stop: 04/18/24 08:59 Last Admin: 03/21/24 08:30 Dose: 100 mg Heparin Sodium/Dextrose (Heparin Sodium/Dextrose) 25,000 units in 500 mls @ 0 mls/hr IV .Q0M [facility]; Protocol Stop: 04/18/24 09:59 Last Titration: 03/19/24 17:07 Dose: 0 units/hr, 0 mls/hr Piperacillin Sod/Tazobactam Sod (Zosyn) 4.5 gm in 100 mls @ 25 mls/hr IV Q8H [facility]; Protocol Stop: 03/29/24 20:59 Last Infusion: 12/13/24 09:53 Dose: Infused Latanoprost (Latanoprost 0.005% Op Soln 2.5 Ml Btl) 1 drops OPB PM [facility] Stop: 04/18/24 20:59 Last Admin: 03/20/24 21:33 Dose: 1 drops Lisinopril (Lisinopril 10 Mg Tab) 10 mg PO DAILY [facility] Stop: 04/18/24 08:59 Last Admin: 03/19/24 09:33 Dose: 10 mg Melatonin (Melatonin 3 Mg Tab) 3 mg PO HS PRN PRN Reason: Sleep Stop: 04/19/24 22:44 Last Admin: 03/20/24 23:39 Dose: 3 mg Metoprolol Succinate (Metoprolol Succ 25mg Ext Rel Tab) 12.5 mg PO QAM [facility] Stop: 04/18/24 08:59 Last Admin: 03/21/24 08:30 Dose: 12.5 mg Pantoprazole Sodium (Pantoprazole 40 Mg Tab) 40 mg PO BID [facility] Stop: 04/18/24 13:29 Last Admin: 03/21/24 08:30 Dose: 40 mg Tramadol HCl (Tramadol Hcl 50 Mg Tablet) 50 mg PO BID PRN PRN Reason: pain Stop: 04/18/24 02:30 Last Admin: 03/21/24 08:29 Dose: 50 mg Warfarin Sodium (Warfarin Sod 5 Mg Tab) 5 mg PO DAILY@1600 [facility] Stop: 04/19/24 15:59 Last Admin: 03/20/24 15:42 Dose: Not Given (1) GI bleed GI bleed type/associated pathology: melena Qualified Code(s): K92.1 - Melena
[2024-03-21 13:29] LABS: Hematocrit (blood only) 25.2 % (37.0-47.0); Hemoglobin 7.7 g/dl (12.0-16.0); Mean Corpuscular Hemoglobin 34.4 pg (25.0-34.0); Mean Corpuscular Hgb Conc 30.6 g/dL (32.0-36.0); Mean Corpuscular Volume 112.5 fL (80.0-100.0); Mean Platelet Volume 9.9 fL (9.4-12.4); Platelet Count 172 K/uL (130-400); RDW Coefficient of Variation 16.2 % (11.5-14.5); RDW Standard Deviation 65.1 fL (36.4-46.3); Red Blood Count 2.24 M/uL (4.20-5.40); White Blood Count 5.43 K/ul (4.8-10.8)
--- NOTE | 2024-03-21 14:06 | Anesthesiology Consultation ---
Date of Service March 21, 2024 Assessment & Plan Chart Review Chart Review: Acceptable Risk for Surgery ASA ASA3 Proposed Anesthesia Anesthesia Type: MAC Risk / Benefits Reviewed With: PT / POA / Parent / Guardian, Accepts Plan and Informed Consent Obtained History Surgery Operation Date: 03/21/24 17:10 Proposed Procedures p Colonoscopy EGD Dr. Ackerman - Amauri Ackerman MD Height/Weight Height: 5 ft 3 in Weight: 79.1 kg Allergies Allergy/AdvReac Type Severity Reaction Status Date / Time No Known Allergies Allergy Unverified 02/05/24 15:02 Medications Home Medications Medication Instructions Recorded Confirmed Last Taken latanoprost 0.005 % eye drops 1 drp OPB PM 07/31/23 03/18/24 Unknown furosemide 20 mg tablet 20 mg PO DAILY #90 tabs 08/20/23 03/18/24 Unknown warfarin 5 mg tablet 5 mg PO DAILY 08/20/23 03/18/24 Unknown lisinopril 10 mg tablet 10 mg PO DAILY #90 tabs 10/30/23 03/18/24 Unknown Shower Chair #1 ea 11/20/23 03/18/24 Unknown diclofenac sodium 1 % topical gel 2 g topical QID PRN Pain 02/05/24 03/18/24 Unknown (Arthritis Pain (diclofenac)) tramadol 50 mg tablet 50 mg PO BID PRN pain 02/05/24 03/18/24 Unknown gabapentin 100 mg capsule 100 mg PO TID #90 caps 02/28/24 03/18/24 Unknown brimonidine 0.2 % eye drops 1 drp OPB TID 03/18/24 03/18/24 Unknown dorzolamide 2 % eye drops 1 drp OPB BID 03/18/24 03/18/24 Unknown metoprolol succinate 25 mg 12.5 mg PO QAM 03/18/24 03/18/24 Unknown tablet,extended release 24 hr Active Medications Generic Name Dose Route Start Last Admin Trade Name Freq PRN Reason Stop Dose Admin Brimonidine Tartrate 1 drops 03/19/24 09:00 03/21/24 08:29 Brimonidine Tartrate 0.2% 5ml OPB 04/18/24 08:59 1 drops TID MCKENZIE Administration Dorzolamide HCl 1 drops 03/19/24 09:00 03/21/24 08:29 Dorzolamide Hcl 2% Oph Soln 10 Ml Btl OPB 04/18/24 08:59 1 drops BID MCKENZIE Administration Gabapentin 100 mg 03/19/24 09:00 03/21/24 08:30 Gabapentin 100 Mg Cap PO 04/18/24 08:59 100 mg TID MCKENZIE Administration Heparin Sodium/Dextrose 25,000 units in 500 mls @ 0 mls/hr 03/19/24 10:00 03/19/24 17:07 Heparin Sodium/Dextrose IV 04/18/24 09:59 0 units/hr .Q0M MCKENZIE 0 mls/hr Titration Protocol 0 UNITS/HR Piperacillin Sod/Tazobactam Sod 4.5 gm in 100 mls @ 25 mls/hr 03/19/24 21:00 03/21/24 14:03 Zosyn IV 03/29/24 20:59 0 mls/hr Q8H MCKENZIE Infusion Protocol Latanoprost 1 drops 03/19/24 21:00 03/20/24 21:33 Latanoprost 0.005% Op Soln 2.5 Ml Btl OPB 04/18/24 20:59 1 drops PM MCKENZIE Administration Lisinopril 10 mg 03/19/24 09:00 03/19/24 09:33 Lisinopril 10 Mg Tab PO 04/18/24 08:59 10 mg DAILY MCKENZIE Administration Melatonin 3 mg 03/20/24 22:45 03/20/24 23:39 Melatonin 3 Mg Tab PO 04/19/24 22:44 3 mg HS PRN Administration Sleep Metoprolol Succinate 12.5 mg 03/19/24 09:00 03/21/24 08:30 Metoprolol Succ 25mg Ext Rel Tab PO 04/18/24 08:59 12.5 mg QAM MCKENZIE Administration Pantoprazole Sodium 40 mg 03/19/24 13:30 03/21/24 08:30 Pantoprazole 40 Mg Tab PO 04/18/24 13:29 40 mg BID MCKENZIE Administration Tramadol HCl 50 mg 03/19/24 02:31 03/21/24 08:29 Tramadol Hcl 50 Mg Tablet PO 04/18/24 02:30 50 mg BID PRN Administration pain Warfarin Sodium 5 mg 03/20/24 16:00 03/20/24 15:42 Warfarin Sod 5 Mg Tab PO 04/19/24 15:59 Not Given DAILY@1600 MCKENZIE Past Medical History Medical History Current every day smoker On warfarin therapy Hypertension Exercise / Class Metabolic Activity II 4-5 Yardwork/Stairs/Walk up hill Past Family History Family History Brother Hypertension Heart disease Sister Hypertension Heart disease Mother Hypertension Heart disease Myocardial infarction Father Hypertension Heart disease Denies family history of Ovarian cancer Prostate cancer Breast cancer Lung cancer Colorectal cancer Stroke Past Surgical History Surgical History H/O mechanical aortic valve replacement Past Anesthesia History No Hx of Anesthesia Complications Social History Smoking Status: Current every day smoker Smoking cigarettes per day: 1/2 pack Do You Dip or Chew Tobacco: No Hx Alcohol Use: No Hx Substance Use: No Physical Exam Vital Signs Last Vital Signs Temp 36.6 C 03/21/24 12:06 Pulse 60 03/21/24 12:06 Resp 16 03/21/24 12:06 BP 107/67 03/21/24 12:06 Pulse Ox 98 03/21/24 12:06 O2 Del Method Room Air 03/21/24 12:06 ENMT Thyromental Distance: > or= 3.5 Finger Breadths Mallampati Class: II Respiratory normal respiratory effort Auscultation: lungs clear to auscultation bilaterally Cardiovascular Rate/Rhythm: regular rate and regular rhythm Psychiatric Orientation: alert and oriented x 3 Testing Laboratory Results 03/21/24 12:58 03/21/24 07:43 PT 15.3 Seconds (9.0-12.0) H 03/21/24 07:43 INR 1.5 (0.9-1.1) H 03/21/24 07:43 APTT 38 Seconds (21-31) H 03/19/24 10:24 Blood Type O Positive 03/18/24 21:06 Antibody Screen NEGATIVE 03/18/24 21:06
--- NOTE | 2024-03-21 15:54 | GI REPORT ---
[facility] Patient: CASTILLO CHAMORRO : 1940 Sex at : Female Age: 83 Years Procedure: Upper GI endoscopy Date: 03/21/2024 Attending Physician: Amauri Ackerman MD Referring MD: Loki Munoz M.d. Indications: - Recent gastrointestinal bleeding Medications: - Monitored Anesthesia Care Complications: - No immediate complications. Estimated Blood Loss: - Estimated blood loss: None. Procedure: - The egd scope was introduced through the mouth and advanced to the second part of the duodenum. - The upper GI endoscopy was accomplished without difficulty. - The patient tolerated the procedure well. Findings: - The Z-line was regular and was found 36 cm from the incisors. - The examined esophagus was normal. No evidence of Horvath's mucosa or esophagitis - A 2 cm hiatal hernia was present. - The exam of the stomach was otherwise normal. - No evidence of blood, ulcer, tumor. - Biopsies were taken with a cold forceps in the gastric antrum for Helicobacter pylori testing. - One non-bleeding superficial duodenal ulcer with no stigmata of bleeding was found in the duodenal bulb. The lesion was 10 mm in largest dimension. - Patchy mildly erythematous mucosa without active bleeding and with no stigmata of bleeding was found in the duodenal bulb. Impression: - Z-line regular, 36 cm from the incisors. - Normal esophagus. - No evidence of Horvath's mucosa or esophagitis - 2 cm hiatal hernia. - No evidence of blood, ulcer, tumor. - Biopsies were taken with a cold forceps for Helicobacter pylori testing. - Non-bleeding duodenal ulcer with no stigmata of bleeding. - Erythematous duodenopathy. Recommendation: - Observe patient's clinical course. - If stable okay to restart heparin tomorrow. - Pantoprazole 40 mg twice a day p.o. Procedure Code(s): - 37707, Esophagogastroduodenoscopy, flexible, transoral; with biopsy, single or multiple Diagnosis Code(s): - K92.2, Gastrointestinal hemorrhage, unspecified - K44.9, Diaphragmatic hernia without obstruction or gangrene - K26.9, Duodenal ulcer, unspecified as acute or chronic, without hemorrhage or perforation - K31.89, Other diseases of stomach and duodenum CPT(R) - 2023 copyright [employer]. All Rights Reserved. The CPT codes, CCI edits and ICD codes generated are intended as suggestions and were generated based on input data. These codes are preliminary and upon [employer] member review may be revised to meet current compliance and payer requirements. The provider is responsible for the final determination of appropriate codes, and modifiers. Amauri Ackerman M.D., MD This document has been electronically signed. Note Initiated:03/21/2024 Note Completed:03/21/2024 3:53 PM \\[email or web address]\Central\InterfaceData\Data\Provation\Results\LIVE\[id number].pdf
--- NOTE | 2024-03-21 15:58 | GI REPORT ---
[facility] Patient: CASTILLO CHAMORRO : 1940 Sex at : Female Age: 83 Years Procedure: Colonoscopy Date: 03/21/2024 Attending Physician: Amauri Ackerman MD Referring MD: Loki Munoz M.d. Indications: - Gastrointestinal bleeding Medications: - Monitored Anesthesia Care Complications: - No immediate complications. Estimated Blood Loss: - Estimated blood loss: None. Procedure: - The pediatric colonoscope was introduced through the anus and advanced to the cecum, identified by appendiceal orifice and ileocecal valve. - The colonoscopy was performed without difficulty. - The quality of the bowel preparation was evaluated using the BBPS (Armstrong Bowel Preparation Scale) with scores of: Right Colon = 3, Transverse Colon = 3 and Left Colon = 3 (entire mucosa seen well with no residual staining, small fragments of stool or opaque liquid). The total BBPS score equals 9. - The quality of the bowel preparation was evaluated using the BBPS (Armstrong Bowel Preparation Scale) with scores of: Left Colon = 3 (entire mucosa seen well with no residual staining, small fragments of stool or opaque liquid), Transverse Colon = 2 (minor amount of residual staining, small fragments of stool and/or opaque liquid, but mucosa seen well) and Right Colon = 2 (minor amount of residual staining, small fragments of stool and/or opaque liquid, but mucosa seen well). The total BBPS score equals 7. The quality of the bowel preparation was good. Findings: - The perianal examination was normal. - A few small-mouthed and medium-mouthed diverticula were found in the left colon. Small amount of dark liquid stool was visualized in the cecum and in the ascending colon. - There is no endoscopic evidence of bleeding, inflammation, mass or polyps in the entire colon. Impression: - Diverticulosis in the left colon. - Small amount of dark liquid stool was visualized in the cecum and in the ascending colon. - No specimens collected. Recommendation: - Advance diet. - No repeat colonoscopy due to current age (66 years or older). - If stable restart heparin tomorrow. Procedure Code(s): - 35978, Colonoscopy, flexible; diagnostic, including collection of specimen(s) by brushing or washing, when performed (separate procedure) Diagnosis Code(s): - K92.2, Gastrointestinal hemorrhage, unspecified - K57.30, Diverticulosis of large intestine without perforation or abscess without bleeding CPT(R) - 2023 copyright [employer]. All Rights Reserved. The CPT codes, CCI edits and ICD codes generated are intended as suggestions and were generated based on input data. These codes are preliminary and upon doctor of naturopathic medicine review may be revised to meet current compliance and payer requirements. The provider is responsible for the final determination of appropriate codes, and modifiers. Amauri Ackerman M.D., MD This document has been electronically signed. Note Initiated:03/21/2024 Note Completed:03/21/2024 3:57 PM \\[email or web address]\InterfaceData\Data\Provation\Results\LIVE\[id number]
--- NOTE | 2024-03-21 15:59 | Communication Note ---
Date of Service: March 21, 2024 EGD showed duodenal ulcer with no bleeding stigmata. Colonoscopy showed few left-sided diverticula and small amount of old dark liquid stool in the right colon. Suspect that the bleeding originated from the duodenal ulcer. Recommended pantoprazole 40 mg twice a day. Monitor CBC. If stable okay to restart heparin tomorrow.
--- NOTE | 2024-03-21 16:03 | Hospitalist Progress Note ---
Date of Service March 21, 2024 Assessment & Plan (1) GI bleed: Plan: GI bleed due to anticoagulant therapy Likely due to supratherapeutic INR on admission. EGD/CN performed by Dr. Oleary: non bleeding duodenal ulcer, CN no signs of bleeding source of bleeding likely ulcer PPI BID okay to restart heparin tomorrow. INR currently 1.5, goal therapeutic range per H&P is 3.5 - 4 CBC 03/21 - hgb 7.7, stable BMP 03/21 - creatinine downtrending to 1.48 AM CBC, BMP, INR (2) Diverticulitis: Plan: Patient presented to the ER on 03/18 with chief complaint of black diarrhea. CTAP: mild sigmoid diverticulitis Cipro/Flagyl given on admission, transitioned to Zosyn 03/19 Clear liquid diet Remainder of plan, please see above. AM CBC, BMP (3) Chest tightness: Plan: EKst degree AB block, RBBB unchanged, increased TX interval Troponin 14.9 with repeat pf 13.9 Hold Lisinopril 03/20 due to hypotension (93/60) Continue Metoprolol Echo 03/19: LVEF >70%. severe LVH, bi-leaflet ([place]) Aortic mechanical prosthesis. mod-severe valvular aortic stenosis. mild pulm regurgitation. moder ate mitral annular calcification. moderate mitral stenosis. Cardiology consulted: Patient okay to proceed with endoscopies resume anticoagulation when bleeding resolves and hgb stabilizes. Continue to monitor symptoms for now. repeat EKG as needed for chest pain. (4) Hypertension: Plan: Patient on lisinopril 10mg PO daily outpatient hold in the setting of an GERSON and hypotension s/p 1L IVF 03/20. Continue to monitor, patient currently normotensive. Plan Chronic conditions: Neuropathy: gabapentin DVT prophylaxis: Heparin/Warfarin resume 03/22 Diet: clear liquid Code: DNR/DNI Disposition: continued inpatient stay Admission and Anticipated Discharge Date Admission Date: March 19, 2024 Subjective Patient seen and examined this morning. Patient completed her bowel prep overnight. She felt weak and tired this morning. Denied any abdominal pain, chest pain, or shortness of breath. Physical Exam Constitutional: WD/WN, vitals as above Eyes: PERRL, conjunctivae normal, anicteric sclerae Respiratory: breathing unlabored Cardiovascular: well perfused Psychiatric: A+Ox3, euthymic affect Results & Data Results & Data Vital Signs (Past 12 Hours) Vital Signs Temp Pulse Pulse Resp BP BP Pulse Ox 03/21/24 15:52 36.8 C 86 16 149/87 H 100 03/21/24 15:28 03/21/24 13:53 36.8 C 65 16 137/62 100 03/21/24 12:06 36.6 C 60 16 107/67 98 03/21/24 09:00 36.5 C 72 16 138/65 96 03/21/24 08:00 69 O2 Del Method 03/21/24 15:52 Room Air 03/21/24 15:28 Room Air 03/21/24 13:53 Room Air 03/21/24 12:06 Room Air 03/21/24 09:00 Room Air 03/21/24 08:00 PG Care Time/CCT Total # of Minutes Spent Total Time Spent with Patient: Total time spent is greater than 50% in coordination of care (as documented) at patient's floor/unit and/or counseling patient: Coding Level of Care Code 10500 SUB INP/OBS CARE 2/35MIN Diagnoses Gastrointestinal hemorrhage with melena K92.1 GI bleed type/associated pathology: melena Diverticulitis K57.92 Chest tightness R07.89 Hypertension I10 (1) GI bleed GI bleed type/associated pathology: melena Qualified Code(s): K92.1 - Melena
--- NOTE | 2024-03-21 16:10 | Anesthesiology Progress Note ---
Date of Service March 21, 2024 Anesthesia Post Procedure Vital Signs Vital Signs: Temp Pulse Pulse Resp BP BP Pulse Ox 03/21/24 16:07 67 16 140/53 L 94 03/21/24 15:52 98.2 F 86 16 149/87 H 100 03/21/24 15:28 03/21/24 13:53 98.2 F 65 16 137/62 100 03/21/24 12:06 97.9 F 60 16 107/67 98 03/21/24 09:00 97.7 F 72 16 138/65 96 03/21/24 08:00 69 03/21/24 03:21 97.7 F 71 18 112/61 96 03/20/24 23:36 97.9 F 72 18 104/71 100 03/20/24 21:44 74 03/20/24 19:52 97.7 F 80 18 114/75 99 O2 Del Method 03/21/24 16:07 Room Air 03/21/24 15:52 Room Air 03/21/24 15:28 Room Air 03/21/24 13:53 Room Air 03/21/24 12:06 Room Air 03/21/24 09:00 Room Air 03/21/24 08:00 03/21/24 03:21 Room Air 03/20/24 23:36 Room Air 03/20/24 21:44 03/20/24 19:52 Room Air Pain Intensity Lower Back: Pain Intensity: 6 Transfer of Care Handoff Completed per policy Notes Mental Status: alert / awake / arousable and participated in evaluation Patient Amnestic to Procedure: Yes Nausea / Vomiting: adequately controlled Pain: adequately controlled Airway Patency, RR, SpO2: stable & adequate BP & HR: stable & adequate Hydration State: stable & adequate Anesthetic Complications: no major complications apparent and Pt Satisfied with anesthetic care
[2024-03-21 17:37] LABS: Hematocrit (blood only) 27.6 % (37.0-47.0); Hemoglobin 8.5 g/dl (12.0-16.0); Mean Corpuscular Hemoglobin 33.6 pg (25.0-34.0); Mean Corpuscular Hgb Conc 30.8 g/dL (32.0-36.0); Mean Corpuscular Volume 109.1 fL (80.0-100.0); Mean Platelet Volume 10.3 fL (9.4-12.4); Nucleated RBC # (auto) 0.03 K/uL (0.00-0.12); Nucleated RBC % (auto) 0.4 %; Platelet Count 188 K/uL (130-400); RDW Coefficient of Variation 16.3 % (11.5-14.5); RDW Standard Deviation 64.9 fL (36.4-46.3); Red Blood Count 2.53 M/uL (4.20-5.40); White Blood Count 6.71 K/ul (4.8-10.8)
[2024-03-21] MEDS: PROPOFOL IV EMULSION 10 MG/ML 20 ML VIAL IV ONE ×2 (18:11)
[2024-03-21] MEDS: LIDOCAINE 2% 2 ML VIAL/AMP(20MG/ML) INFIL ONE ×3 (18:11)
[2024-03-21] MEDS: PANTOprazole 40 MG TAB PO SCH (22:15)
[2024-03-21 22:47] LABS: Hematocrit (blood only) 25.8 % (37.0-47.0); Hemoglobin 7.8 g/dl (12.0-16.0); Mean Corpuscular Hemoglobin 34.2 pg (25.0-34.0); Mean Corpuscular Hgb Conc 30.2 g/dL (32.0-36.0); Mean Corpuscular Volume 113.2 fL (80.0-100.0); Mean Platelet Volume 9.9 fL (9.4-12.4); Nucleated RBC # (auto) 0.02 K/uL (0.00-0.12); Nucleated RBC % (auto) 0.3 %; Platelet Count 177 K/uL (130-400); RDW Coefficient of Variation 16.3 % (11.5-14.5); RDW Standard Deviation 66.4 fL (36.4-46.3); Red Blood Count 2.28 M/uL (4.20-5.40); White Blood Count 6.68 K/ul (4.8-10.8)
[2024-03-22 06:42] LABS: Hematocrit (blood only) 25.8 % (37.0-47.0); Hemoglobin 7.9 g/dl (12.0-16.0); Mean Corpuscular Hemoglobin 34.5 pg (25.0-34.0); Mean Corpuscular Hgb Conc 30.6 g/dL (32.0-36.0); Mean Corpuscular Volume 112.7 fL (80.0-100.0); Nucleated RBC # (auto) 0.02 K/uL (0.00-0.12); Nucleated RBC % (auto) 0.4 %; Platelet Count 179 K/uL (130-400); RDW Coefficient of Variation 16.2 % (11.5-14.5); RDW Standard Deviation 66.5 fL (36.4-46.3); Red Blood Count 2.29 M/uL (4.20-5.40); White Blood Count 5.04 K/ul (4.8-10.8)
[2024-03-22 06:53] LABS: BUN Creatinine Ratio 17.5 (10-20); Calcium 8.3 mg/dl (8.6-10.3); Creatinine Clr Calc Pharmacy 30.3 ml/min; Potassium 4.4 mmol/L (3.5-5.1)
[2024-03-22 07:03] LABS: INR 1.5 (0.9-1.1); Prothrombin Time 15.6 Seconds (9.0-12.0)
[2024-03-22 09:04] LABS: Partial Thromboplastin Ratio 1.2; Partial Thromboplastin Time 33 Seconds (21-31)
[2024-03-22] MEDS: HEPARIN SODIUM/DEXTROSE 25,000 UNITS/500 ML BAG IV SCH (09:18)
--- NOTE | 2024-03-22 10:02 | Hospitalist Progress Note ---
Date of Service March 22, 2024 Assessment & Plan (1) GI bleed: Plan: GI bleed due to anticoagulant therapy Likely due to supratherapeutic INR on admission. EGD/CN performed by Dr. Oleary: non bleeding duodenal ulcer, CN no signs of bleeding source of bleeding likely ulcer PPI BID INR currently 1.5, goal therapeutic range per H&P is 3.5 - 4 low dose heparin resumed 03/22 w/ bridge to Warfarin CBC q6h for 24 hours after resuming anticoagulation. CBC 03/22 - hgb 7.9, stable BMP 03/22 - creatinine downtrending to 1.37 PT/OT consulted for patient's weakness. May require rehab stay prior to returning home. AM CBC, BMP, INR (2) Diverticulitis: Plan: Patient presented to the ER on 03/18 with chief complaint of black diarrhea. CTAP: mild sigmoid diverticulitis Cipro/Flagyl given on admission, transitioned to Zosyn 03/19 Clear liquid diet, advance as toelrated Remainder of plan, please see above. AM CBC, BMP (3) Chest tightness: Plan: EKst degree AB block, RBBB unchanged, increased CO interval Troponin 14.9 with repeat pf 13.9 Hold Lisinopril 03/20 due to hypotension (93/60) Continue Metoprolol Echo 03/19: LVEF >70%. severe LVH, bi-leaflet ([facility]) Aortic mechanical prosthesis. mod-severe valvular aortic stenosis. mild pulm regurgitation. moderate mitral annular calcification. moderate mitral stenosis. Cardiology consulted: Patient okay to proceed with endoscopies resume anticoagulation when bleeding resolves and hgb stabilizes. Continue to monitor symptoms. repeat EKG as needed for chest pain. (4) Hypertension: Plan: Patient on lisinopril 10mg PO daily outpatient hold in the setting of an GERSON and hypotension s/p 1L IVF 03/20. Continue to monitor, patient currently normotensive. Plan Chronic conditions: Neuropathy: gabapentin DVT prophylaxis: Heparin/Warfarin resume 03/22 Diet: clear liquid Code: DNR/DNI Disposition: continued inpatient stay Admission and Anticipated Discharge Date Admission Date: March 19, 2024 Subjective Patient seen and examined this morning. Patient complaining of weakness. She continues to be incontinent of stool. Per nursing, stool was a green color this morning. No signs of bleeding observed. Physical Exam Constitutional: WD/WN, vitals as above Eyes: PERRL, conjunctivae normal, anicteric sclerae Respiratory: well perfused Cardiovascular: breathing unlabored Gastrointestinal (Abdomen): negative for abdominal tenderness Results & Data Results & Data Vital Signs (Past 12 Hours) Vital Signs Temp Pulse Pulse Resp BP Pulse Ox O2 Del Method 03/22/24 07:00 60 03/22/24 03:45 36.5 C 70 18 130/78 98 Room Air 03/22/24 00:25 36.4 C L 75 20 105/67 97 Room Air PG Care Time/CCT Total # of Minutes Spent Total Time Spent with Patient: Total time spent is greater than 50% in coordination of care (as documented) at patient's floor/unit and/or counseling patient: Coding Level of Care Code 57944 SUB INP/OBS CARE 2/35MIN Diagnoses Gastrointestinal hemorrhage with melena K92.1 GI bleed type/associated pathology: melena Diverticulitis K57.92 Chest tightness R07.89 Hypertension I10 (1) GI bleed GI bleed type/associated pathology: melena Qualified Code(s): K92.1 - Melena
[2024-03-22] MEDS: Heparin IV Adult Wt-Based Low-Dose *NO* INITIAL Bolus Protocol IV SCH (10:24)
[2024-03-22 10:41] LABS: Hematocrit (blood only) 26.7 % (37.0-47.0); Mean Corpuscular Hemoglobin 34.9 pg (25.0-34.0); Mean Corpuscular Volume 116.6 fL (80.0-100.0); Mean Platelet Volume 9.9 fL (9.4-12.4); Nucleated RBC # (auto) 0.02 K/uL (0.00-0.12); Nucleated RBC % (auto) 0.3 %; Platelet Count 191 K/uL (130-400); RDW Coefficient of Variation 16.4 % (11.5-14.5); RDW Standard Deviation 68.8 fL (36.4-46.3); Red Blood Count 2.29 M/uL (4.20-5.40); White Blood Count 6.35 K/ul (4.8-10.8)
--- NOTE | 2024-03-22 11:37 | Cardiology Progress Note ---
Date of Service March 22, 2024 Assessment & Plan (1) GI bleed: (2) Symptomatic anemia: (3) H/O mechanical aortic valve replacement: (4) Aortic stenosis: Plan 83 year old female admitted on 03/18 with acute on chronic dyspnea, weakness - GI bleeding. Hemoglobin down to 6.7 g/dL on March 19, 2024. Status post 1 unit of packed red blood cells Echo on 03/19/2024 with hyperdynamic LV systolic function, moderate to severe valvular aortic stenosis (bileaflet ([place]) aortic mechanical prosthesis), stable findings compared to October 2023 EGD on March 21, 2024 with nonbleeding duodenal ulcer, erythematous duodenopathy, 2 cm hiatal hernia. Colonoscopy with left-sided diverticula. GI notes suspected bleeding from duodenal ulcer and recommends pantoprazole 40 mg twice per day Hemoglobin 8.0 g/dL this AM INR 1.5. Low-dose heparin started today Agree with IV heparin, bridging back to Coumadin anticoagulation, with close monitoring of H&H, INR Goal 2.5 to 3.5 Continue low-dose beta-irish therapy and MICHAEL inhibition, likely needing to resume furosemide in the next day or two. Admission and Anticipated Discharge Date Admission Date: March 19, 2024 Supervising Physician Co-Signing Physician Notes I spent a total of 30 minutes on the date of service in preparation, delivery, and documentation of the care provided to this patient, excluding any time spent in the performance of separately billed services. I have personally performed a history and physical examination on the patient. I have reviewed the advance practitioner's documentation, and I agree with, and take responsibility for the plan of care. Subjective Patient seen and examined. Chart, medications, telemetry reviewed. Feels weak. Green diarrhea this morning. No chest pain. No shortness of breath. No palpitations. Telemetry: Sinus in the 60s with occasional ectopy, heart rates predominantly in the 60s and 70s While at patient's bedside, erika Lin called; update provided as requested by patient Review of Systems Review of Systems: Complete Review of Systems is as stated above, negative, or noncontributory. Physical Exam Physical Exam: Examined in a chair General: NAD. Neck: No JVD. Heart: RRR. Mechanical valve. Grade II/ systolic murmur. No diastolic murmur. Lungs: Clear to auscultation. Abdomen: +BS. Limited neurological examination is without focal deficits. Results & Data Vital Signs (Past 12 Hours) Vital Signs Temp Pulse Pulse Resp BP Pulse Ox O2 Del Method 03/22/24 08:20 Room Air 03/22/24 07:00 60 03/22/24 03:45 36.5 C 70 18 130/78 98 Room Air 03/22/24 00:25 36.4 C L 75 20 105/67 97 Room Air Laboratory Results Coagulation 03/22/24 Range/Units 06:06 PT 15.6 H (9.0-12.0) Seconds APTT 33 H (21-31) Seconds CBC 03/21/24 03/21/24 03/21/24 Range/Units 12:58 17:06 22:28 WBC 5.43 6.71 6.68 (4.8-10.8) K/ul RBC 2.24 L 2.53 L 2.28 L (4.20-5.40) M/uL Hgb 7.7 L 8.5 L 7.8 L (12.0-16.0) g/dl Hct 25.2 L 27.6 L 25.8 L (37.0-47.0) % Plt Count 172 188 177 (130-400) K/uL 03/22/24 03/22/24 Range/Units 06:06 10:20 WBC 5.04 6.35 (4.8-10.8) K/ul RBC 2.29 L 2.29 L (4.20-5.40) M/uL Hgb 7.9 L 8.0 L (12.0-16.0) g/dl Hct 25.8 L 26.7 L (37.0-47.0) % Plt Count 179 191 (130-400) K/uL Comprehensive Metabolic Panel 03/22/24 Range/Units 06:06 Sodium 145 (136-145) mmol/L Potassium 4.4 (3.5-5.1) mmol/L Chloride 121 H (98-107) mmol/L Carbon Dioxide 20 L (21-32) mmol/L BUN 24 H (6-23) mg/dl Creatinine 1.37 H (0.6-1.2) mg/dl Glucose 81 (70-99(Fasting)) mg/dl Calcium 8.3 L (8.6-10.3) mg/dl Intake and Output 03/21/24 03/22/24 03/22/24 22:59 06:59 14:59 Intake Total 260 / 490 100 / 490 340 / 340 Output Total Balance 260 / 490 100 / 490 339 / 339 Intake: IV 0 / 230 100 / 230 100 / 100 Heparin Sodium/Dextrose 25,000 0 / 0 units In 500 ml @ 0 UNITS/HR IV .Q0M [facility] Rx#:[id number] Piperacillin/Tazobactam 4.5 gm 0 / 230 100 / 230 100 / 100 In 100 ml @ 25 mls/hr IV Q8H [facility] Rx#:[id number] Oral 260 / 260 0 / 260 240 / 240 Output: # Bowel Movements Other: Other Intake Source NPO # Unmeasured Voids Weight 81.1 kg Weight Measurement Method Built in [facility] (1) GI bleed GI bleed type/associated pathology: melena Qualified Code(s): K92.1 - Melena
[2024-03-22 13:29] LABS: Hematocrit (blood only) 26.8 % (37.0-47.0); Hemoglobin 8.3 g/dl (12.0-16.0); Mean Corpuscular Hemoglobin 35.2 pg (25.0-34.0); Mean Corpuscular Volume 113.6 fL (80.0-100.0); Mean Platelet Volume 10.8 fL (9.4-12.4); Nucleated RBC # (auto) 0.02 K/uL (0.00-0.12); Nucleated RBC % (auto) 0.3 %; Platelet Count 214 K/uL (130-400); RDW Coefficient of Variation 16.4 % (11.5-14.5); RDW Standard Deviation 66.4 fL (36.4-46.3); Red Blood Count 2.36 M/uL (4.20-5.40)
[2024-03-22 15:24] LABS: Hematocrit (blood only) 27.5 % (37.0-47.0); Hemoglobin 8.3 g/dl (12.0-16.0); Mean Corpuscular Hemoglobin 34.3 pg (25.0-34.0); Mean Corpuscular Hgb Conc 30.2 g/dL (32.0-36.0); Mean Corpuscular Volume 113.6 fL (80.0-100.0); Nucleated RBC # (auto) 0.02 K/uL (0.00-0.12); Nucleated RBC % (auto) 0.3 %; Platelet Count 202 K/uL (130-400); RDW Standard Deviation 65.3 fL (36.4-46.3); Red Blood Count 2.42 M/uL (4.20-5.40); White Blood Count 6.32 K/ul (4.8-10.8)
[2024-03-22 15:47] LABS: ANTI-Xa, UFH(UnfractionatedHep 0.55 IU/ml (0.3-0.7)
[2024-03-23 07:53] LABS: INR 1.6 (0.9-1.1); Prothrombin Time 16.7 Seconds (9.0-12.0)
[2024-03-23 08:06] LABS: ANTI-Xa, UFH(UnfractionatedHep 1.12 IU/ml (0.3-0.7)
[2024-03-23 08:32] LABS: Calcium 8.5 mg/dl (8.6-10.3); Creatinine Clr Calc Pharmacy 30.3 ml/min; Hemoglobin 8.3 g/dl (12.0-16.0); Mean Corpuscular Hemoglobin 34.7 pg (25.0-34.0); Mean Corpuscular Hgb Conc 30.7 g/dL (32.0-36.0); Mean Platelet Volume 10.3 fL (9.4-12.4); Platelet Count 188 K/uL (130-400); RDW Coefficient of Variation 16.4 % (11.5-14.5); RDW Standard Deviation 66.2 fL (36.4-46.3); Red Blood Count 2.39 M/uL (4.20-5.40); White Blood Count 5.68 K/ul (4.8-10.8)
[2024-03-23] MEDS: FUROSEMIDE 20 MG TAB PO SCH (09:13)
--- NOTE | 2024-03-23 09:21 | Hospitalist Progress Note ---
Date of Service March 23, 2024 Assessment & Plan (1) GI bleed: Plan: GI bleed due to anticoagulant therapy Likely due to supratherapeutic INR on admission. EGD/CN performed by Dr. Oleary: non bleeding duodenal ulcer, CN no signs of bleeding source of bleeding likely ulcer PPI BID INR currently 1.6, goal therapeutic range per cardiology is 2.5-3.5 low dose heparin resumed 03/22 w/ bridge to Warfarin CBC 03/23 - hgb 8.3 - seems to have stabilized BMP 03/23 - creatinine downtrending to 1.36 PT/OT consulted for patient's weakness. May require rehab stay prior to returning home. AM CBC, BMP, INR (2) Diverticulitis: Plan: Patient presented to the ER on 03/18 with chief complaint of black diarrhea. CTAP: mild sigmoid diverticulitis Cipro/Flagyl given on admission, transitioned to Zosyn 03/19. Clear liquid diet, advance as tolerated Patient w/ incontinent diarrhea since colonoscopy, brown in color likely due to laxatives that were given added prn Imodium TID 03/23. Remainder of plan, please see above. AM CBC, BMP (3) Chest tightness: Plan: EKst degree AB block, RBBB unchanged, increased HI interval Troponin 14.9 with repeat pf 13.9 Hold Lisinopril 03/20 due to hypotension (93/60) Continue Metoprolol Echo 03/19: LVEF >70%. severe LVH, bi-leaflet ([facility]) Aortic mechanical prosthesis. mod-severe valvular aortic stenosis. mild pulm regurgitation. moderate mitral annular calcification. moderate mitral stenosis. Cardiology consulted: Patient okay to proceed with endoscopies resume anticoagulation when bleeding resolves and hgb stabilizes. Lasix resumed 03/23. Continue to monitor symptoms. repeat EKG as needed for chest pain. (4) Hypertension: Plan: Patient on lisinopril 10mg PO daily outpatient hold in the setting of an GERSON and hypotension s/p 1L IVF 03/20. Continue to monitor, patient currently normotensive. Plan Chronic conditions: Neuropathy: gabapentin DVT prophylaxis: Heparin/Warfarin resume 03/22 Diet: clear liquid Code: DNR/DNI Disposition: continued inpatient stay Admission and Anticipated Discharge Date Admission Date: March 19, 2024 Subjective Patient seen and examined this morning. Patient continues to have loose incontinent stool following her colonoscopy that is brown to green in color. She denied any abdominal pain, SOB, or chest pain. She still feels very weak but was able to get to her chair for breakfast this morning. Physical Exam Constitutional: WD/WN, vitals as above Eyes: PERRL, conjunctivae normal, anicteric sclerae Respiratory: normal respiratory effort, lungs clear to auscultation Cardiovascular: RRR, no murmur, no edema Psychiatric: A+Ox3, euthymic affect Results & Data Results & Data Vital Signs (Past 12 Hours) Vital Signs Temp Pulse Pulse Resp BP Pulse Ox O2 Del Method 03/23/24 08:01 36.3 C L 67 20 140/56 L 99 Room Air 03/23/24 07:43 57 L 03/23/24 04:12 36.4 C L 63 18 134/71 99 Room Air 03/22/24 23:51 36.3 C L 62 18 112/72 99 Room Air 03/22/24 21:48 59 L PG Care Time/CCT Total # of Minutes Spent Total Time Spent with Patient: Total time spent is greater than 50% in coordination of care (as documented) at patient's floor/unit and/or counseling patient: Coding Level of Care Code 39489 SUB INP/OBS CARE 2/35MIN Diagnoses Gastrointestinal hemorrhage with melena K92.1 GI bleed type/associated pathology: melena Diverticulitis K57.92 Chest tightness R07.89 Hypertension I10 (1) GI bleed GI bleed type/associated pathology: melena Qualified Code(s): K92.1 - Melena
[2024-03-23] MEDS: ACETAMINOPHEN 325 MG TAB PO PRN (10:30)
[2024-03-23] MEDS: LOPERAMIDE HCL 2 MG CAP PO PRN (10:30)
[2024-03-23 10:32] LABS: ANTI-Xa, UFH(UnfractionatedHep 0.83 IU/ml (0.3-0.7)
[2024-03-23 12:21] LABS: ANTI-Xa, UFH(UnfractionatedHep 0.41 IU/ml (0.3-0.7)
--- NOTE | 2024-03-23 13:05 | Cardiology Progress Note ---
Date of Service March 23, 2024 Assessment & Plan (1) GI bleed: (2) Symptomatic anemia: (3) H/O mechanical aortic valve replacement: (4) Aortic stenosis: Plan 83 year old female admitted on 03/18 with acute on chronic dyspnea, weakness - GI bleeding. Hemoglobin down to 6.7 g/dL on March 19, 2024. Status post 1 unit of packed red blood cells Echo on 03/19/2024 with hyperdynamic LV systolic function, moderate to severe valvular aortic stenosis (bileaflet ([place]) aortic mechanical prosthesis), stable findings compared to October 2023 EGD on March 21, 2024 with nonbleeding duodenal ulcer, erythematous duodenopathy, 2 cm hiatal hernia. Colonoscopy with left-sided diverticula. GI notes suspected bleeding from duodenal ulcer and recommends pantoprazole 40 mg twice per day Hemoglobin 8.3 g/dL this AM INR 1.6. Tolerating IV heparin bridge back to proper Coumadin anticoagulation, INR Goal 2.5 to 3.5 Continue low-dose beta-irish therapy. Furosemide resumed today. Lisinopril remains on hold though probably can be restarted. Low dose amlodipine was pre viously poorly tolerated. Admission and Anticipated Discharge Date Admission Date: March 19, 2024 Supervising Physician Co-Signing Physician Notes I spent a total of 30 minutes on the date of service in preparation, delivery, and documentation of the care provided to this patient, excluding any time spent in the performance of separately billed services. I have personally performed a history and physical examination on the patient. I have reviewed the advance practitioner's documentation, and I agree with, and take responsibility for the plan of care. Subjective Patient seen and examined. Chart, medications, telemetry reviewed. Feeling OK. Still weak. Chronic blurred vision, blind in the left eye, glaucoma. No chest pain. No shortness of breath. No palpitations. Telemetry: Sinus in the 60s with occasional ventricular ectopy, heart rates predominantly in the 50s to 70s Review of Systems Review of Systems: Complete Review of Systems is as stated above, negative, or noncontributory. Physical Exam Physical Exam: Examined in a chair General: NAD. Neck: No JVD. Heart: RRR. Mechanical valve. Grade II/ systolic murmur. No diastolic murmur. Lungs: Clear to auscultation. Abdomen: +BS. Extremities: Minimal edema Limited neurological examination is without focal deficits. Results & Data Vital Signs (Past 12 Hours) Vital Signs Temp Pulse Pulse Resp BP Pulse Ox O2 Del Method 03/23/24 10:15 36.3 C L 71 16 167/71 H 99 Room Air 03/23/24 08:01 36.3 C L 67 20 140/56 L 99 Room Air 03/23/24 08:00 Room Air 03/23/24 07:43 57 L 03/23/24 04:12 36.4 C L 63 18 134/71 99 Room Air Laboratory Results Coagulation 03/23/24 Range/Units 06:58 PT 16.7 H (9.0-12.0) Seconds CBC 03/22/24 03/22/24 03/23/24 Range/Units 12:32 15:01 08:10 WBC 7.20 6.32 5.68 (4.8-10.8) K/ul RBC 2.36 L 2.42 L 2.39 L (4.20-5.40) M/uL Hgb 8.3 L 8.3 L 8.3 L (12.0-16.0) g/dl Hct 26.8 L 27.5 L 27.0 L (37.0-47.0) % Plt Count 214 202 188 (130-400) K/uL Comprehensive Metabolic Panel 03/23/24 Range/Units 08:10 Sodium 142 (136-145) mmol/L Potassium 4.0 (3.5-5.1) mmol/L Chloride 117 H (98-107) mmol/L Carbon Dioxide 19 L (21-32) mmol/L BUN 19 (6-23) mg/dl Creatinine 1.36 H (0.6-1.2) mg/dl Glucose 83 (70-99(Fasting)) mg/dl Calcium 8.5 L (8.6-10.3) mg/dl Intake and Output 03/22/24 03/23/24 03/23/24 22:59 06:59 14:59 Intake Total 485.25 / 1725.25 200 / 1725.25 300.25 / 300.25 Output Total 5 / 311 2 / 311 Balance 480.25 / 1414.25 198 / 1414.25 300.25 / 300.25 Intake: IV 245.25 / 445.25 100 / 445.25 300.25 / 300.25 Heparin Sodium/Dextrose 25,000 145.25 / 145.25 200.25 / 200.25 units In 500 ml @ 750 UNITS/HR 15 mls/hr IV .Q24H [facility] Rx#: [id number] Piperacillin/Tazobactam 4.5 gm 100 / 300 100 / 300 100 / 100 In 100 ml @ 25 mls/hr IV Q8H [facility] Rx#:[id number] Oral 240 / 1280 100 / 1280 Output: # Bowel Movements 2 Other: # Unmeasured Voids 2 Weight 80 kg Weight Measurement Method Built in [facility] (1) GI bleed GI bleed type/associated pathology: melena Qualified Code(s): K92.1 - Melena
[2024-03-24 07:48] LABS: Hemoglobin 8.1 g/dl (12.0-16.0); Mean Corpuscular Hemoglobin 34.6 pg (25.0-34.0); Mean Corpuscular Hgb Conc 31.2 g/dL (32.0-36.0); Mean Corpuscular Volume 111.1 fL (80.0-100.0); Mean Platelet Volume 10.2 fL (9.4-12.4); Platelet Count 203 K/uL (130-400); RDW Coefficient of Variation 15.9 % (11.5-14.5); RDW Standard Deviation 64.5 fL (36.4-46.3); Red Blood Count 2.34 M/uL (4.20-5.40); White Blood Count 7.45 K/ul (4.8-10.8)
[2024-03-24 08:05] LABS: BUN Creatinine Ratio 13.6 (10-20); Calcium 8.4 mg/dl (8.6-10.3); Creatinine Clr Calc Pharmacy 25.4 ml/min; Potassium 3.8 mmol/L (3.5-5.1)
[2024-03-24 08:22] LABS: ANTI-Xa, UFH(UnfractionatedHep 0.65 IU/ml (0.3-0.7); INR 1.6 (0.9-1.1); Prothrombin Time 16.8 Seconds (9.0-12.0)
[2024-03-24] MEDS: ONDANSETRON INJ 2 MG/ML 2 ML VIAL IV PRN (09:13)
--- NOTE | 2024-03-24 09:53 | Hospitalist Progress Note ---
Date of Service March 24, 2024 Assessment & Plan (1) GI bleed: Plan: GI bleed due to anticoagulant therapy Likely due to supratherapeutic INR on admission. EGD/Craw[place] performed by Dr. Oleary: - EGD non bleeding duodenal ulcer - likely source - Crawford: no signs of bleeding - BID PPI INR currently 1.6, goal is 2.5-3.5 low dose heparin resumed 03/22 w/ bridge to Warfarin Receive 1unit PRBCs during admission. Hgb has stabilized. Cr increasing to 1.62, baseline ~1.2-1.3 - 500cc NSS Bolus given with poor PO intake / n/v - lasix held (dose already given 03/24), continue to hold lisinopril - encourage PO hydration PT/OT consulted for patient's weakness - recommend rehab AM CBC, BMP, INR (2) Diverticulitis: Plan: Patient presented to the ER on 03/18 with chief complaint of black diarrhea. CTAP: mild sigmoid diverticulitis Abx:Cipro/Flagyl given on admission, transitioned to Zosyn 03/19. - case discussed on ID Pharmacy rounds 03/24, based on colonoscopy findings, completed adequate course of zosyn. No leukocytosis, fever or abd pain. Agree with discontinuation. Patient w/ incontinent diarrhea since colonoscopy, brown in color likely due to laxatives that were given Continue prn Imodium TID 03/23. (3) Chest tightness: Plan: EKst degree AB block, RBBB unchanged, increased MD interval. Troponin 14.9 --> 13.9 Echo: LVEF >70%. severe LVH, bi-leaflet ([facility]) Aortic mechanical prosthesis. mod-severe valvular aortic stenosis. mild pulm regurgitation. moderate mitral annular calcification. moderate mitral stenosis. - Stable compared to prior. Cardiology consulted: Patient okay to proceed with endoscopies resume anticoagulation when bleeding resolves and hgb stabilizes. - IV heparin bridge okay to resume lasix - currently held with increasing Cr and poor PO intake (4) Hypertension: Plan: Home meds: lisinopril and metoprolol - lisinopril held as above Plan Chronic conditions: Neuropathy: gabapentin DVT prophylaxis: Heparin/Warfarin resume 03/22 Disposition: continued inpatient stay bridging Coumadin and treating GERSON LM for granddaughter, Josseline Admission and Anticipated Discharge Date Admission Date: March 19, 2024 Subjective Patient seen lying in bed, reports not feeling as well today. Thinks something was in her juice last night and has been vomiting since. Not blood in her emesis. Does report an episode of diarrhea Denies abdomina pain, shortness of breath or chest pain Tele - SR with 1st degree AV blocks, 60-80s Review of Systems Review of Systems: All systems reviewed & are unremarkable except as noted in Subjective Physical Exam Physical Exam: General: NAD, VS as above, lying in bed, appears ill HEENT: MM dry Resp: normal respiratory effort, lungs clear to auscultation CV: RRR, no murmur, Abd: normal bowel sounds, non tender, no hepatosplenomegaly Extremities: Moves all extremities, no edema Neuro: A&O x3, Skin: intact, no lesions noted Results & Data Results & Data Vital Signs (Past 12 Hours) Vital Signs Temp Pulse Pulse Resp BP BP Pulse Ox 03/24/24 07:45 03/24/24 07:40 98.2 F 83 20 142/79 H 99 03/24/24 07:20 78 03/24/24 03:34 97.5 F L 72 18 168/73 H 98 03/24/24 00:11 98.4 F 61 18 90/48 L 96 03/23/24 22:07 74 O2 Del Method 03/24/24 07:45 Room Air 03/24/24 07:40 Room Air 03/24/24 07:20 03/24/24 03:34 Room Air 03/24/24 00:11 Room Air 03/23/24 22:07 Laboratory Results CBC, chemistry and INR reviewed PG Care Time/CCT Total # of Minutes Spent Total Time Spent with Patient: Total time spent is greater than 50% in coordination of care (as documented) at patient's floor/unit and/or counseling patient: Coding Level of Care Code 07062 SUB INP/OBS CARE 3/50MIN Diagnoses Gastrointestinal hemorrhage with melena K92.1 GI bleed type/associated pathology: melena Diverticulitis K57.92 Chest tightness R07.89 Hypertension I10 (1) GI bleed GI bleed type/associated pathology: melena Qualified Code(s): K92.1 - Melena
[2024-03-24] MEDS: SODIUM CHLORIDE 0.9% 500 ML IV ONE (10:03)
--- NOTE | 2024-03-24 13:41 | Cardiology Progress Note ---
Date of Service March 24, 2024 Assessment & Plan (1) GI bleed: (2) Symptomatic anemia: (3) H/O mechanical aortic valve replacement: (4) Aortic stenosis: Plan 83 year old female admitted on 03/18 with acute on chronic dyspnea, weakness - GI bleeding. Hemoglobin down to 6.7 g/dL on March 19, 2024. Status post 1 unit of packed red blood cells Echo on 03/19/2024 with hyperdynamic LV systolic function, moderate to severe valvular aortic stenosis (bileaflet ([place]) aortic mechanical prosthesis), stable findings compared to October 2023 EGD on March 21, 2024 with nonbleeding duodenal ulcer, erythematous duodenopathy, 2 cm hiatal hernia. Colonoscopy with left-sided diverticula. GI notes suspected bleeding from duodenal ulcer and recommends pantoprazole 40 mg twice per day Hemoglobin 8.1 g/dL this AM INR 1.6. On IV heparin and Coumadin anticoagulation, INR Goal 2.5 to 3.5 Continue low-dose beta-irish therapy. Hold Furosemide. Continue to hold Lisinopril Please contact with any cardiac questions or concerns. Admission and Anticipated Discharge Date Admission Date: March 19, 2024 Supervising Physician Co-Signing Physician Notes I have personally performed a history and physical examination on the patient. I have reviewed the advance practitioner's documentation, and I agree with, and take responsibility for the plan of care. INR remains subtherapeutic. Continue low-dose IV heparin bridging. Dose Coumadin daily. INR goal 2.5-3.5. Continue low-dose beta-irish. Furosemide and lisinopril remain on hold due to borderline hypotension and ongoing diarrhea. Consider stool studies for C. difficile, culture, ova and parasites. Max Carlos DO, [facility] Subjective Patient seen and examined. Chart, medications, telemetry reviewed. Apple juice did not taste right. Nausea. Watery emesis. Watery diarrhea x 4-5 today. No blood. Furosemide held. Received 500 cc normal saline solution bolus Lisinopril last received on March 19 Telemetry: Sinus with occasional ectopy, short run of PAT. Review of Systems Review of Systems: Complete Review of Systems is as stated above, negative, or noncontributory. Physical Exam Physical Exam: In bed. General: NAD. Neck: No JVD. Heart: RRR, 74 bpm. Mechanical valve. Grade II/ systolic murmur. No diastolic murmur. Lungs: Clear to auscultation anteriorly. Abdomen: +BS. Extremities: No edema Limited neurological examination is without focal deficits. Results & Data Vital Signs (Past 12 Hours) Vital Signs Temp Pulse Pulse Resp BP Pulse Ox O2 Del Method 03/24/24 12:18 36.9 C 76 16 98/49 L 98 Room Air 03/24/24 07:45 Room Air 03/24/24 07:40 36.8 C 83 20 142/79 H 99 Room Air 03/24/24 07:20 78 03/24/24 03:34 36.4 C L 72 18 168/73 H 98 Room Air Laboratory Results Coagulation 03/24/24 Range/Units 07:05 PT 16.8 H (9.0-12.0) Seconds CBC 03/24/24 Range/Units 07:05 WBC 7.45 (4.8-10.8) K/ul RBC 2.34 L (4.20-5.40) M/uL Hgb 8.1 L (12.0-16.0) g/dl Hct 26.0 L (37.0-47.0) % Plt Count 203 (130-400) K/uL Comprehensive Metabolic Panel 03/24/24 Range/Units 07:05 Sodium 142 (136-145) mmol/L Potassium 3.8 (3.5-5.1) mmol/L Chloride 115 H (98-107) mmol/L Carbon Dioxide 19 L (21-32) mmol/L BUN 22 (6-23) mg/dl Creatinine 1.62 H (0.6-1.2) mg/dl Glucose 87 (70-99(Fasting)) mg/dl Calcium 8.4 L (8.6-10.3) mg/dl Intake and Output 03/23/24 03/24/24 03/24/24 22:59 06:59 14:59 Intake Total 1019.25 / 1619.50 300 / 1619.50 721.35 / 721.35 Output Total 3 / 5 2 / 5 Balance 1016.25 / 1614.50 298 / 1614.50 721.35 / 721.35 Intake: IV 144.25 / 544.50 100 / 544.50 721.35 / 721.35 Heparin Sodium/Dextrose 25,000 44.25 / 244.50 121.35 / 121.35 units In 500 ml @ 450 UNITS/HR 9 mls/hr IV .Q24H [facility] Rx#: [id number] Piperacillin/Tazobactam 4.5 gm 100 / 300 100 / 300 100 / 100 In 100 ml @ 25 mls/hr IV Q8H [facility] Rx#:[id number] Sodium Chloride 0.9% 500 ml @ 500 / 500 999 mls/hr IV .Q31M [facility] Rx#: [id number] Oral 875 / 1075 200 / 1075 Output: # Bowel Movements 3 / 5 2 / 5 Other: # Unmeasured Voids 3 Weight 80 kg Weight Measurement Method Built in [facility] (1) GI bleed GI bleed type/associated pathology: melena Qualified Code(s): K92.1 - Melena
[2024-03-25] MEDS: MELATONIN 3 MG TAB PO ONE (02:04)
[2024-03-25] MEDS ORDERED: MICONAZOLE NITRATE POWDER 85 GM EXT PRN (06:17)
[2024-03-25 06:37] LABS: Hemoglobin 7.4 g/dl (12.0-16.0); Mean Corpuscular Hemoglobin 34.4 pg (25.0-34.0); Mean Corpuscular Hgb Conc 30.8 g/dL (32.0-36.0); Mean Corpuscular Volume 111.6 fL (80.0-100.0); Mean Platelet Volume 10.1 fL (9.4-12.4); Nucleated RBC # (auto) 0.02 K/uL (0.00-0.12); Nucleated RBC % (auto) 0.5 %; Platelet Count 195 K/uL (130-400); RDW Coefficient of Variation 15.9 % (11.5-14.5); RDW Standard Deviation 63.8 fL (36.4-46.3); Red Blood Count 2.15 M/uL (4.20-5.40); White Blood Count 4.34 K/ul (4.8-10.8)
[2024-03-25 07:03] LABS: ANTI-Xa, UFH(UnfractionatedHep 0.37 IU/ml (0.3-0.7); INR 1.6 (0.9-1.1); Prothrombin Time 16.9 Seconds (9.0-12.0)
[2024-03-25 07:15] LABS: Potassium 3.7 mmol/L (3.5-5.1)
[2024-03-25 07:20] LABS: BUN Creatinine Ratio 12.1 (10-20); Creatinine Clr Calc Pharmacy 29.5 ml/min
[2024-03-25] MEDS: SODIUM CHLORIDE 0.9% 1,000 ML IV ONE (11:27)
[2024-03-25] MEDS: ADVANCED PROBIOTIC 625 MG CAPSULE PO SCH (12:31)
--- NOTE | 2024-03-25 14:15 | Hospitalist Progress Note ---
Date of Service March 25, 2024 Assessment & Plan (1) GI bleed: Plan: GI bleed due to anticoagulant therapy Likely due to supratherapeutic INR on admission. EGD/[place] performed by Dr. Oleary: - EGD non bleeding duodenal ulcer - likely source - [place]: no signs of bleeding - BID PPI INR currently 1.6, goal is 2.5-3.5 low dose heparin resumed 03/22 w/ bridge to Warfarin Receive 1unit PRBCs during admission. Hgb dropped to 7.4 today will recheck this afternoon Cr increasing but now downtrending, baseline ~1.2-1.3 - 500cc NSS Bolus 03/24, additional 1L 03/25 - lasix held, resume lisinopril as BP allows - encourage PO hydration PT/OT consulted for patient's weakness - recommend rehab AM CBC, BMP, INR Recheck CBC, iron studies at 1500 today (2) Diverticulitis: Plan: Patient presented to the ER on 03/18 with chief complaint of black diarrhea. CTAP: mild sigmoid diverticulitis Abx:Cipro/Flagyl given on admission, transitioned to Zosyn 03/19. - case discussed on ID Pharmacy rounds 03/24, based on colonoscopy findings, completed adequate course of zosyn. No leukocytosis, fever or abd pain. Agree with discontinuation. Patient w/ incontinent diarrhea since colonoscopy, this continues despite Imodium - cdiff negative - ova and parasite, norovirus pending (3) Chest tightness: Plan: EKst degree AB block, RBBB unchanged, increased NV interval. Troponin 14.9 --> 13.9 Echo: LVEF >70%. severe LVH, bi-leaflet ([place]) Aortic mechanical prosthesis. mod-severe valvular aortic stenosis. mild pulm regurgitation. moderate mitral annular calcification. moderate mitral stenosis. - Stable compared to prior. Cardiology consulted: Patient okay to proceed with endoscopies resume anticoagulation when bleeding resolves and hgb stabilizes. - IV heparin bridge okay to resume lasix - currently held with increasing Cr and poor PO intake (4) Hypertension: Plan: Home meds: lisinopril and metoprolol - lisinopril can be resumed as BP allows Plan Chronic conditions: Neuropathy: gabapentin DVT prophylaxis: Heparin/Warfarin resume 12/14 Disposition: continued inpatient stay bridging Coumadin and treating GERSON robin updated 03/24 Admission and Anticipated Discharge Date Admission Date: March 19, 2024 Supervising Physician Co-Signing Physician Notes Attending Attestation - Chart reviewed, care plan d/w DAYNA Figueroa. I agree w/ the [place] components of her documentation. Consider PRBCs given what appears to be ongoing symptomatic anemia. Macrocytosis - B12/folate wnl this admission. TSH wnl 08/2023. Following d/c consider heme/onc referral for additional work-up. Neymar Mckeon MD Subjective Patient seen sitting up in the chair, feeling slightly better from yesterday but still not feeling well. Denies abdominal pain, cough or cold symptoms. Does have some blurry vision and lightheadedness while sitting. Continues to have watery diarrhea for which she is incontinent slight fever overnight - denies chills or sweats Reports feeling weak. Review of Systems Review of Systems: All systems reviewed & are unremarkable except as noted in Subjective Physical Exam Physical Exam: General: NAD, VS as above, sitting up in the chair , appears ill HEENT: MM dry Resp: normal respiratory effort, lungs clear to auscultation CV: RRR, + murmur, Abd: normal bowel sounds, non tender, no hepatosplenomegaly Extremities: Moves all extremities, no edema Neuro: A&O x3, Skin: intact, no lesions noted Results & Data Results & Data Vital Signs (Past 12 Hours) Vital Signs Temp Pulse Pulse Resp BP Pulse Ox O2 Del Method 03/25/24 12:13 98.1 F 82 16 88/52 L 99 Room Air 03/25/24 08:27 97.9 F 72 16 99/59 L 97 Room Air 03/25/24 07:09 Room Air 03/25/24 06:57 77 Laboratory Results CBc and chemistry reviewed PG Care Time/CCT Total # of Minutes Spent Total Time Spent with Patient: Total time spent is greater than 50% in coordination of care (as documented) at patient's floor/unit and/or counseling patient: Coding Level of Care Code 39769 SUB INP/OBS CARE 3/50MIN Diagnoses Gastrointestinal hemorrhage with melena K92.1 GI bleed type/associated pathology: melena Diverticulitis K57.92 Chest tightness R07.89 Hypertension I10 (1) GI bleed GI bleed type/associated pathology: melena Qualified Code(s): K92.1 - Melena
[2024-03-25 15:55] LABS: Hemoglobin 8.4 g/dl (12.0-16.0); Mean Corpuscular Hemoglobin 35.4 pg (25.0-34.0); Mean Corpuscular Hgb Conc 31.1 g/dL (32.0-36.0); Mean Corpuscular Volume 113.9 fL (80.0-100.0); Mean Platelet Volume 10.2 fL (9.4-12.4); Nucleated RBC # (auto) 0.02 K/uL (0.00-0.12); Nucleated RBC % (auto) 0.3 %; Platelet Count 217 K/uL (130-400); RDW Coefficient of Variation 16.2 % (11.5-14.5); RDW Standard Deviation 67.7 fL (36.4-46.3); Red Blood Count 2.37 M/uL (4.20-5.40); White Blood Count 5.96 K/ul (4.8-10.8)
[2024-03-25] MEDS: IRON SUCROSE 300 MG in SODIUM CHLORIDE 0.9% 250 ML IV ONE (16:58)
[2024-03-26 08:15] LABS: Hematocrit (blood only) 22.6 % (37.0-47.0); Nucleated RBC # (auto) 0.04 K/uL (0.00-0.12); Nucleated RBC % (auto) 0.6 %; Platelet Count 190 K/uL (130-400); RDW Coefficient of Variation 16.3 % (11.5-14.5); White Blood Count 6.34 K/ul (4.8-10.8)
[2024-03-26 08:33] LABS: BUN Creatinine Ratio 13.1 (10-20); Calcium 7.9 mg/dl (8.6-10.3); Potassium 3.6 mmol/L (3.5-5.1)
[2024-03-26 08:53] LABS: ANTI-Xa, UFH(UnfractionatedHep 0.34 IU/ml (0.3-0.7); INR 2.7 (0.9-1.1); Prothrombin Time 26.6 Seconds (9.0-12.0)
[2024-03-26] MEDS ORDERED: SODIUM CHLORIDE 0.9% 50 ML IV PRN (08:58)
[2024-03-26] MEDS ORDERED: SODIUM CHLORIDE 0.9% 100 ML IV PRN (08:58)
--- NOTE | 2024-03-26 11:04 | Gastroenterology Progress Note ---
Date of Service March 26, 2024 Assessment & Plan (1) GI bleed: Plan Patient seems to be having further bleeding. Suspect that this is from the upper GI tract. - would recommending hold anticoagulants at this time. - As long as her INR is less than 2, will plan to proceed with a repeat EGD on 03/27. - monitor hgb/hct. transfuse as needed. - continue with protonix 40mg bid. Admission and Anticipated Discharge Date Admission Date: March 19, 2024 Supervising Physician Co-Signing Physician Notes I personally saw and examined the patient. I have reviewed the chart and agree with the documentation provided by the BELT CHANGER including discussion about the assessment, treatment and plan. Briefly, we are called back as the patient had some dark black stools followed by some blood per rectum this morning. She feels uneasy and has some mild upper abdominal pain. Her hemoglobin has dropped from 8-7. The EGD and colonoscopy are nicely outlined below. It is possible she is bleeding from the duodenal ulcer or AVMs or a missed lesion. We will start with an endoscopy given her melena and her prior duodenal ulcer. Would ideally like the INR less than 2.0 for endoscopy or close to that. N.p.o. after midnight stat INR in the morning and we will see if we can do an EGD tomorrow. Subjective GI was called back to see patient. per nursing, she had some red stools last evening which had converted to black stool today. she has been getting heparin and coumadin. she had ate breakfast this morning. also admits to some nausea/vomiting yesterday that she tells me was dark. hgb dropped from 8.4 to 7. EGD 03/21 showed duodenal ulcer with no bleeding stigmata. Colonoscopy 03/21 showed few left-sided diverticula and small amount of old dark liquid stool in the right colon. Review of Systems Review of Systems: All systems reviewed & are unremarkable except as noted in HPI & below Physical Exam Constitutional: WD/WN, vitals as above Respiratory: normal respiratory effort, lungs clear to auscultation Cardiovascular: Rate/Rhythm: regular rate and regular rhythm Gastrointestinal (Abdomen): normal bowel sounds, soft, nontender, no hepatosplenomegaly Psychiatric: Orientation: alert and oriented x 3 Affect: euthymic affect Results & Data Results & Data Vital Signs (Past 12 Hours) Vital Signs Temp Pulse Pulse Resp BP Pulse Ox O2 Del Method 03/26/24 07:44 97.9 F 94 H 16 118/58 L 96 Room Air 03/26/24 05:59 74 03/26/24 03:43 98.1 F 76 18 144/79 H 96 Room Air 03/25/24 23:30 88 Coding Level of Care Code 96461 SUB INP/OBS CARE 2/35MIN Diagnoses Gastrointestinal hemorrhage with melena K92.1 GI bleed type/associated pathology: melena (1) GI bleed GI bleed type/associated pathology: melena Qualified Code(s): K92.1 - Melena
[2024-03-26] MEDS: PHYTONADIONE 5 MG TAB PO STA (12:39)
--- NOTE | 2024-03-26 13:04 | Hospitalist Progress Note ---
Date of Service March 26, 2024 Assessment & Plan (1) GI bleed: Plan: GI bleed due to anticoagulant therapy. Likely due to supratherapeutic INR on admission. GI consulted - 03/21 EGD non bleeding duodenal ulcer - likely source - 03/11 [place]: no signs of bleeding - BID PPI - asked to reevaluate 03/26 given continued GI bleeding and dropping hemoglobin, plan is for EGD tomorrow 03/27 Coumadin therapy for mechanical heart valve, goal is 2.5-3.5 - INR up to 2.7 today, heparin bridging discontinued. Unfortunately plan to reverse Coumadin with 2.5 mg of vitamin K in anticipation for EGD tomorrow - recheck INR this afternoon Receive 1unit PRBCs during admission. Hgb dropped to 7.0 today - transfuse additional unit PRBCs today, posttransfusion H&H - Iron studies with component of iron deficiency anemia but also likely anemia of chronic disease - venofer x1 03/25 Cr increasing but now downtrending, baseline ~1.2-1.3 - 500cc NSS Bolus 03/24, additional 1L 03/25 - lasix held, resume lisinopril - encourage PO hydration PT/OT consulted for patient's weakness - recommend rehab AM CBC, BMP, INR (2) Diverticulitis: Plan: Patient presented to the ER on 03/18 with chief complaint of black diarrhea. CTAP: mild sigmoid diverticulitis Abx:Cipro/Flagyl given on admission, transitioned to Zosyn 03/19. - case discussed on ID Pharmacy rounds 03/24, based on colonoscopy findings, completed adequate course of zosyn. No leukocytosis, fever or abd pain. Agree with discontinuation. Patient w/ incontinent diarrhea since colonoscopy, this continues despite Imodium - cdiff negative - ova and parasite, norovirus pending - given return of bleed, this is likely the cause (3) Chest tightness: Plan: EKst degree AB block, RBBB unchanged, increased SD interval. Troponin 14.9 --> 13.9 Echo: LVEF >70%. severe LVH, bi-leaflet ([place]) Aortic mechanical prosthesis. mod-severe valvular aortic stenosis. mild pulm regurgitation. moderate mitral annular calcification. moderate mitral stenosis. - Stable compared to prior. Cardiology consulted: Patient okay to proceed with endoscopies resume anticoagulation when bleeding resolves and hgb stabilizes. - IV heparin bridge okay to resume lasix - currently held with increasing Cr and poor PO intake no additional chest tightness reported (4) Acute blood loss anemia: Plan Chronic conditions: Hypertension: Continue lisinopril metoprolol Neuropathy: gabapentin DVT prophylaxis: held/being reversed for EGD 03/27 Disposition: continued inpatient stay, plan for EGD tomorrow robin updated 03/24 & 03/26 Admission and Anticipated Discharge Date Admission Date: March 19, 2024 Supervising Physician Co-Signing Physician Notes Attending Attestation- Chart reviewed, care plan d/w DAYNA Figueroa. I agree w/ the [place]al[place] components of her documentation with the following addition - * acute blood loss anemia * duodenal ulcer Agree w/ additional unit of PRBCs today. Agree with stopping heparin IV, giving small dose of vit K to reverse coumadin as is appears GI bleeding has recurred. Plan for EGD tomorrow if INR <2. Cont PPI. Neymar Mckeon MD Subjective patient seen lying in bed, reports feeling weaker than yesterday. States every time that she eats she feels like diarrhea is just coming out of her. Also had some emesis this morning. Still having some lightheadedness even while laying down. denies having any abdominal pain. Does report slight headache Nursing report bowel movements have been maroon/rust colored and also red and bloody. Telemetrysinus rhythm with PVCs in the 80s Review of Systems Review of Systems: All systems reviewed & are unremarkable except as noted in Subjective Physical Exam Physical Exam: General: NAD, VS as above, lying in bed , appears ill HEENT: MM dry Resp: normal respiratory effort, lungs clear to auscultation CV: RRR, + murmur, Abd: normal bowel sounds, non tender, no hepatosplenomegaly Extremities: Moves all extremities, no edema Neuro: A&O x3, Skin: intact, no lesions noted Results & Data Results & Data Vital Signs (Past 12 Hours) Vital Signs Temp Pulse Pulse Resp BP BP Pulse Ox 03/26/24 12:52 98.1 F 79 18 111/73 03/26/24 12:46 98.1 F 79 18 111/73 03/26/24 12:35 97.9 F 79 18 166/83 H 97 03/26/24 11:42 98.6 F 77 18 124/72 98 03/26/24 07:44 97.9 F 94 H 16 118/58 L 96 03/26/24 05:59 74 03/26/24 03:43 98.1 F 76 18 144/79 H 96 O2 Del Method 03/26/24 12:52 03/26/24 12:46 03/26/24 12:35 03/26/24 11:42 Room Air 03/26/24 07:44 Room Air 03/26/24 05:59 03/26/24 03:43 Room Air PG Care Time/CCT Total # of Minutes Spent Total Time Spent with Patient: Total time spent is greater than 50% in coordination of care (as documented) at patient's floor/unit and/or counseling patient: Coding Level of Care Code 66520 SUB INP/OBS CARE 3/50MIN Diagnoses Gastrointestinal hemorrhage with melena K92.1 GI bleed type/associated pathology: melena Diverticulitis K57.92 Chest tightness R07.89 Acute blood loss anemia D62 (1) GI bleed GI bleed type/associated pathology: melena Qualified Code(s): K92.1 - Melena
[2024-03-26 17:54] LABS: INR 2.5 (0.9-1.1); Prothrombin Time 25.1 Seconds (9.0-12.0)
[2024-03-26 18:18] LABS: Hematocrit (blood only) 26.7 % (37.0-47.0); Hemoglobin 8.3 g/dl (12.0-16.0)
[2024-03-26] MEDS: PHYTONADIONE 2.5 MG in DEXTROSE 5% 50 ML IV ONE (20:23)
[2024-03-27 06:34] LABS: Hematocrit (blood only) 23.9 % (37.0-47.0); Hemoglobin 7.5 g/dl (12.0-16.0); Mean Corpuscular Hemoglobin 33.8 pg (25.0-34.0); Mean Corpuscular Hgb Conc 31.4 g/dL (32.0-36.0); Mean Corpuscular Volume 107.7 fL (80.0-100.0); Mean Platelet Volume 10.1 fL (9.4-12.4); Nucleated RBC # (auto) 0.06 K/uL (0.00-0.12); Nucleated RBC % (auto) 0.9 %; Platelet Count 189 K/uL (130-400); RDW Coefficient of Variation 20.4 % (11.5-14.5); RDW Standard Deviation 79.7 fL (36.4-46.3); Red Blood Count 2.22 M/uL (4.20-5.40); White Blood Count 6.39 K/ul (4.8-10.8)
[2024-03-27 06:56] LABS: INR 1.4 (0.9-1.1); Prothrombin Time 14.9 Seconds (9.0-12.0)
[2024-03-27 06:59] LABS: BUN Creatinine Ratio 12.1 (10-20); Calcium 7.9 mg/dl (8.6-10.3); Creatinine Clr Calc Pharmacy 31.8 ml/min; Potassium 3.9 mmol/L (3.5-5.1)
--- NOTE | 2024-03-27 08:26 | History & Physical Bridge Note ---
Date of Service March 27, 2024 History & Physical Bridge Note I have examined the patient, reviewed the History & Physical and in the interval since the performance of the History & Physical I have noted the following changes of clinical significance: no changes noted. INR is 1.6 and persistent melena. Hgb 7.4. Plan for egd today.
[2024-03-27] MEDS ORDERED: SIMETHICONE (ENDO) IR PRN (08:27)
--- NOTE | 2024-03-27 09:37 | GI REPORT ---
[facility] Patient: CASTILLO CHAMORRO : 1940 Sex at : Female Age: 83 Years Procedure: Upper GI endoscopy Date: 03/27/2024 Attending Physician: Antoni Lacey MD Referring MD: Neymar Mckeon Indications: - Melena - Acute post hemorrhagic anemia Medications: - Monitored Anesthesia Care Complications: - No immediate complications. Estimated Blood Loss: - Estimated blood loss was minimal. Procedure: - Prior to the procedure, a History and Physical was performed, and patient medications and allergies were reviewed. The patient's tolerance of previous anesthesia was also reviewed. The risks and benefits of the procedure and the sedation options and risks were discussed with the patient. All questions were answered, and informed consent was obtained. Prior Anticoagulants: The patient has taken heparin, last dose was day of procedure. ASA Grade Assessment: III - A patient with severe systemic disease. After reviewing the risks and benefits, the patient was deemed in satisfactory condition to undergo the procedure. - The egd scope was introduced through the mouth and advanced to the third part of the duodenum. - The upper GI endoscopy was accomplished without difficulty. - The patient tolerated the procedure well. Findings: - A 2 cm hiatal hernia was present. - Diffuse mild inflammation characterized by erythema was found in the gastric body. NO biopsies done as recent bleeding. - Few non-bleeding superficial duodenal ulcers with no stigmata of bleeding were found in the duodenal bulb. The largest lesion was 5 mm in largest dimension. - One non-bleeding cratered duodenal ulcer with a visible vessel was found in the duodenal bulb. The lesion was 7 mm in largest dimension. Coagulation for hemostasis using argon plasma at 0.8 liters/minute and 20 morrison was successful. For hemostasis, one hemostatic clip was successfully placed. There was no bleeding at the end of the procedure. Impression: - 2 cm hiatal hernia. - Acute gastritis, characterized by erythema. - NO biopsies done as recent bleeding. - Non-bleeding duodenal ulcers with no stigmata of bleeding. - Non-bleeding duodenal ulcer with a visible vessel. Treated with argon plasma coagulation (APC). Clip was placed. - No specimens collected. Recommendation: - Use Protonix (pantoprazole) 40 mg PO BID for 1 week. - Clear liquid today. - Hold anticoag today. - Restart heparin without a bolus tomorrow. - Check h pylori stool ag Procedure Code(s): - 56626, Esophagogastroduodenoscopy, flexible, transoral; with control of bleeding, any method Diagnosis Code(s): - K92.1, Melena (includes Hematochezia) - D62, Acute posthemorrhagic anemia - K44.9, Diaphragmatic hernia without obstruction or gangrene - K29.00, Acute gastritis without bleeding - K26.9, Duodenal ulcer, unspecified as acute or chronic, without hemorrhage or perforation - K26.4, Chronic or unspecified duodenal ulcer with hemorrhage CPT(R) - 2023 copyright [employer]. All Rights Reserved. The CPT codes, CCI edits and ICD codes generated are intended as suggestions and were generated based on input data. These codes are preliminary and upon cutter operator [employer] shingle review may be revised to meet current compliance and payer requirements. The provider is responsible for the final determination of appropriate codes, and modifiers. Antoni Lacey MD This document has been electronically signed. Note Initiated:03/27/2024 Note Completed:03/27/2024 9:37 AM \\[email or web address]\[email or web address]\Data\Provation\Results\LIVE\[id number]
[2024-03-27] MEDS: PROPOFOL IV EMULSION 10 MG/ML 20 ML VIAL IV ONE (10:42)
[2024-03-27] MEDS: LIDOCAINE 2% 2 ML VIAL/AMP(20MG/ML) INFIL ONE ×2 (10:42)
--- NOTE | 2024-03-27 13:28 | Hospitalist Progress Note ---
Date of Service March 27, 2024 Assessment & Plan (1) GI bleed: Plan: GI bleed due to anticoagulant therapy. Likely due to supratherapeutic INR on admission. GI consulted - 03/21 EGD non bleeding duodenal ulcer - likely source - 03/11 [place]: no signs of bleeding - 03/27 EGD: cratered ulcer with visable vessel - clip placed - BID IV PPI per discussion with GI - h.pylori stool testing pending - clear liquid diet, hold on heparin bridging untl tomorrow Coumadin therapy for mechanical heart valve, goal is 2.5-3.5 - unfortunately Coumadin had to be reversed for EGD, plan for resumption of anticoagulation 03/28 Cr increasing but now downtrending, baseline ~1.2-1.3 - 500cc NSS Bolus 03/24, additional 1L 03/25 - lasix held, resume lisinopril - encourage PO hydration PT/OT consulted for patient's weakness - recommend rehab AM CBC, BMP, INR (2) Acute blood loss anemia: Plan: Receive 2unit PRBCs during admission - Iron studies with component of iron deficiency anemia but also likely anemia of chronic disease - venofer x1 03/25 - hgb stable 7.5, recheck in AM (3) Diverticulitis: Plan: Patient presented to the ER on 03/18 with chief complaint of black diarrhea. CTAP: mild sigmoid diverticulitis Abx:Cipro/Flagyl given on admission, transitioned to Zosyn 03/19. - case discussed on [facility] rounds 03/24, based on colonoscopy findings, completed adequate course of zosyn. No leukocytosis, fever or abd pain. Agree with discontinuation. Patient w/ incontinent diarrhea since colonoscopy, this continues despite Imodium - cdiff negative - ova and parasite, norovirus pending - given return of bleed, this is likely the cause (4) Chest tightness: Plan: EKst degree AB block, RBBB unchanged, increased OH interval. Troponin 14.9 --> 13.9 Echo: LVEF >70%. severe LVH, bi-leaflet ([facility]) Aortic mechanical prosthesis. mod-severe valvular aortic stenosis. mild pulm regurgitation. moderate mitral annular calcification. moderate mitral stenosis. - Stable compared to prior. Cardiology consulted: Patient okay to proceed with endoscopies resume anticoagulation when bleeding resolves and hgb stabilizes. - IV heparin bridge okay to resume lasix - currently held with increasing Cr and poor PO intake no additional chest tightness reported (5) Vision changes: Plan: with hx of glaucoma and cataracts- reports chronic blurry vision but acute worsening 03/28 afternoon - MRI brain: no acute findings vision changes back to baseline (6) Aortic stenosis: Plan: Moderate to severe on last echo - may be contributing to dizzy sensation - monitor hydration status Check orthostatic VS - WNL Plan Chronic conditions: Hypertension: Continue lisinopril metoprolol Neuropathy: gabapentin DVT prophylaxis: held/being reversed for EGD 03/27 Disposition: continued inpatient stay, monitoring hgb and plan to restart anticoagulation 03/28 robin updated 03/24 & 03/26, LM 03/27 Case discussed with [facility] Admission and Anticipated Discharge Date Admission Date: March 19, 2024 Supervising Physician Co-Signing Physician Notes Attending Attestation - Chart reviewed, care plan d/w DAYNA Figueroa. I agree w/ the regalado components of her documentation. Appreciate GI assistance. Neymar Mckeon MD Subjective Patient lying in bed, still feels poorly but maybe slighly better than yesteday still feeling dizzy at rest poor appetite RN reprorts stools have sloweed some tele - Sr 70s Review of Systems Review of Systems: All systems reviewed & are unremarkable except as noted in Subjective Physical Exam Physical Exam: General: NAD, VS as above, lying in bed , appears ill but better than prior day HEENT: MM dry Resp: normal respiratory effort, lungs clear to auscultation CV: RRR, + murmur, Abd: normal bowel sounds, non tender, no hepatosplenomegaly Extremities: Moves all extremities, no edema Neuro: A&O x3, Skin: intact, no lesions noted Results & Data Results & Data Vital Signs (Past 12 Hours) Vital Signs Temp Pulse Pulse Resp BP Pulse Ox O2 Del Method 03/27/24 11:23 Room Air 03/27/24 10:55 98.4 F 75 16 135/66 92 Room Air 03/27/24 09:59 69 15 176/92 H 100 Room Air 03/27/24 09:44 70 18 164/85 H 100 Nasal Cannula 03/27/24 09:29 91 H 18 167/110 H 100 Room Air 03/27/24 08:33 99.3 F 81 18 164/75 H 100 Room Air 03/27/24 05:45 71 03/27/24 04:14 98.6 F 68 18 132/74 96 Room Air O2 Flow Rate 03/27/24 11:23 03/27/24 10:55 03/27/24 09:59 03/27/24 09:44 3 03/27/24 09:29 03/27/24 08:33 03/27/24 05:45 03/27/24 04:14 Laboratory Results cbc, chemistry and INR reviewed PG Care Time/CCT Total # of Minutes Spent Total Time Spent with Patient: Total time spent is greater than 50% in coordination of care (as documented) at patient's floor/unit and/or counseling patient: Coding Level of Care Code 38229 SUB INP/OBS CARE 3/50MIN Diagnoses Gastrointestinal hemorrhage with melena K92.1 GI bleed type/associated pathology: melena Acute blood loss anemia D62 Diverticulitis K57.92 Chest tightness R07.89 Vision changes H53.9 Aortic stenosis I35.0 (1) GI bleed GI bleed type/associated pathology: melena Qualified Code(s): K92.1 - Melena
--- NOTE | 2024-03-27 13:42 | Anesthesiology Progress Note ---
Date of Service March 27, 2024 Anesthesia Post Procedure Vital Signs Vital Signs: Temp Pulse Pulse Resp BP BP Pulse Ox 03/27/24 11:23 03/27/24 10:55 36.9 C 75 16 135/66 92 03/27/24 09:59 69 15 176/92 H 100 03/27/24 09:44 70 18 164/85 H 100 03/27/24 09:29 91 H 18 167/110 H 100 03/27/24 08:33 37.4 C 81 18 164/75 H 100 03/27/24 05:45 71 03/27/24 04:14 37.0 C 68 18 132/74 96 03/26/24 23:30 36.7 C 77 18 147/72 H 95 03/26/24 23:15 69 03/26/24 19:24 36.7 C 68 18 143/84 H 98 03/26/24 16:11 36.8 C 91 H 20 89/56 L 95 03/26/24 16:04 36.8 C 91 H 20 89/56 L 95 03/26/24 14:37 36.8 C 65 16 93/55 L 98 O2 Del Method O2 Flow Rate 03/27/24 11:23 Room Air 03/27/24 10:55 Room Air 03/27/24 09:59 Room Air 03/27/24 09:44 Nasal Cannula 3 03/27/24 09:29 Room Air 03/27/24 08:33 Room Air 03/27/24 05:45 03/27/24 04:14 Room Air 03/26/24 23:30 Room Air 03/26/24 23:15 03/26/24 19:24 Room Air 03/26/24 16:11 03/26/24 16:04 Room Air 03/26/24 14:37 Pain Intensity Lower Back: Pain Intensity: 7
--- NOTE | 2024-03-27 13:46 | Anesthesiology Progress Note ---
Date of Service March 27, 2024 Anesthesia Post Procedure Vital Signs Vital Signs: Temp Pulse Pulse Resp BP BP Pulse Ox 03/27/24 11:23 03/27/24 10:55 36.9 C 75 16 135/66 92 03/27/24 09:59 69 15 176/92 H 100 03/27/24 09:44 70 18 164/85 H 100 03/27/24 09:29 91 H 18 167/110 H 100 03/27/24 08:33 37.4 C 81 18 164/75 H 100 03/27/24 05:45 71 03/27/24 04:14 37.0 C 68 18 132/74 96 03/26/24 23:30 36.7 C 77 18 147/72 H 95 03/26/24 23:15 69 03/26/24 19:24 36.7 C 68 18 143/84 H 98 03/26/24 16:11 36.8 C 91 H 20 89/56 L 95 03/26/24 16:04 36.8 C 91 H 20 89/56 L 95 03/26/24 14:37 36.8 C 65 16 93/55 L 98 O2 Del Method O2 Flow Rate 03/27/24 11:23 Room Air 03/27/24 10:55 Room Air 03/27/24 09:59 Room Air 03/27/24 09:44 Nasal Cannula 3 03/27/24 09:29 Room Air 03/27/24 08:33 Room Air 03/27/24 05:45 03/27/24 04:14 Room Air 03/26/24 23:30 Room Air 03/26/24 23:15 03/26/24 19:24 Room Air 03/26/24 16:11 03/26/24 16:04 Room Air 03/26/24 14:37 Pain Intensity Lower Back: Pain Intensity: 7 Transfer of Care Handoff Completed per policy Notes Mental Status: alert / awake / arousable and participated in evaluation Patient Amnestic to Procedure: Yes Nausea / Vomiting: adequately controlled Pain: adequately controlled Airway Patency, RR, SpO2: stable & adequate BP & HR: stable & adequate Hydration State: stable & adequate Anesthetic Complications: no major complications apparent
[2024-03-27] MEDS: PANTOprazole 40 MG/10 ML SYR IV SCH (21:55)
[2024-03-28 06:22] LABS: Hematocrit (blood only) 24.7 % (37.0-47.0); Hemoglobin 7.9 g/dl (12.0-16.0); Mean Corpuscular Hemoglobin 34.5 pg (25.0-34.0); Mean Corpuscular Volume 107.9 fL (80.0-100.0); Mean Platelet Volume 9.9 fL (9.4-12.4); Nucleated RBC # (auto) 0.03 K/uL (0.00-0.12); Nucleated RBC % (auto) 0.4 %; Platelet Count 209 K/uL (130-400); RDW Coefficient of Variation 19.9 % (11.5-14.5); RDW Standard Deviation 78.8 fL (36.4-46.3); Red Blood Count 2.29 M/uL (4.20-5.40); White Blood Count 7.24 K/ul (4.8-10.8)
[2024-03-28 06:46] LABS: Calcium 8.2 mg/dl (8.6-10.3); Creatinine Clr Calc Pharmacy 36.1 ml/min; Potassium 3.9 mmol/L (3.5-5.1)
[2024-03-28 07:01] LABS: INR 1.1 (0.9-1.1); Prothrombin Time 11.9 Seconds (9.0-12.0)
--- NOTE | 2024-03-28 10:06 | Gastroenterology Progress Note ---
Date of Service March 28, 2024 Assessment & Plan (1) Acute blood loss anemia: Plan: 83 year old female with history of HTN, mechanical aortic valve replacement approximately 30 years ago on warfarin, glaucoma, CKD-3 admitted w/ black stools S/P EGD x 2 and colonoscopy w/ evidence of nonbleeding duodenal ulcer treated w/ APC and clips, she is feeling well, advancing diet w/ stable HGB w/o BUN elevation. - PO PPI BID for 1 more week then 40 mg once dailg - Advance to soft diet as tolerated - H.Pylori stool - No GI contraindication to restart heparin without a bolus tomorrow. Recall GI as needed. I spent a total of 40 minutes on the date of service in review of patient's record, and previously obtained information in person and appropriate medical visit, discussion and education of plan, with patient and/or caregiver, placing orders for tests/referral/procedures as medically necessary and documentation of pertinent clinical information in patient's medical records for their visit today. Admission and Anticipated Discharge Date Admission Date: March 19, 2024 Supervising Physician Co-Signing Physician Notes I personally saw and examined the patient. I have reviewed the chart and agree with the documentation provided by the RE RECORDING MIXER including discussion about the asses sment, treatment and plan. hgb stable, status post APC and clip of duodenal ulcer. Can restart heparin tomorrow. Would keep her on PPI twice daily for 10 days and then once daily for 3 months. Follow-up and check H. pylori stool antigen, no biopsies done as patient was bleeding actively. We will sign off please call with any questions. Subjective Pt was seen and evaluated, chart reviewed. Reports generalized fatigue, muscle soreness this AM. Tolerating breakfast. Denies nausea/vomiting. She does not recall any recent BM, however, documentation suggests a small BM today which was brown and blood tinged. HGB 7.9 BUN 14 EGD 2023: 2 cm hiatal hernia. - Acute gastritis, characterized by erythema. - NO biopsies done as recent bleeding. - Non-bleeding duodenal ulcers with no stigmata of bleeding. - Non-bleeding duodenal ulcer with a visible vessel. Treated with argon plasma coagulation (APC). Clip was placed. - No specimens collected. EGD 2023: Z-line regular, 36 cm from the incisors. - Normal esophagus. - No evidence of Horvath's mucosa or esophagitis - 2 cm hiatal hernia. - No evidence of blood, ulcer, tumor. - Biopsies were taken with a cold forceps for Helicobacter pylori testing. - Non-bleeding duodenal ulcer with no stigmata of bleeding. - Erythematous duodenopathy. Colonoscopy 2023: Diverticulosis in the left colon. - Small amount of dark liquid stool was visualized in the cecum and in the ascending colon. - No specimens collected. Review of Systems Review of Systems: All other findings negative except as noted in HPI. Physical Exam Constitutional: WD/WN, vitals as above Respiratory: normal respiratory effort Gastrointestinal (Abdomen): normal bowel sounds, soft, nontender, no hepatosplenomegaly Skin: no rashes, warm and dry Results & Data Results & Data Vital Signs (Past 12 Hours) Vital Signs Temp Pulse Pulse Resp BP Pulse Ox O2 Del Method 03/28/24 09:29 Room Air 03/28/24 07:55 36.9 C 76 18 153/77 H 98 Room Air 03/28/24 06:06 73 03/28/24 00:57 79 03/28/24 00:09 37.0 C 67 18 115/56 L 97 Room Air 03/28/24 00:01 Room Air Laboratory Results 03/28/24 03/27/24 03/26/24 Range/Units 05:53 Unknown 09:16 WBC 7.24 (4.8-10.8) K/ul RBC 2.29 L (4.20-5.40) M/uL Hgb 7.9 L (12.0-16.0) g/dl Hct 24.7 L (37.0-47.0) % MCV 107.9 H (80.0-100.0) fL MCH 34.5 H (25.0-34.0) pg MCHC 32.0 (32.0-36.0) g/dL RDW Std Deviation 78.8 H (36.4-46.3) fL RDW Coeff of Xavier 19.9 H (11.5-14.5) % Plt Count 209 (130-400) K/uL MPV 9.9 (9.4-12.4) fL Absolute Nucleated RBC 0.03 (0.00-0.12) K/uL Nucleated RBC % (auto) 0.4 % PT 11.9 (9.0-12.0) Seconds INR 1.1 (0.9-1.1) Sodium 142 (136-145) mmol/L Potassium 3.9 (3.5-5.1) mmol/L Chloride 116 H (98-107) mmol/L Carbon Dioxide 18 L (21-32) mmol/L Anion Gap 8 (3-11) BUN 14 (6-23) mg/dl Creatinine 1.17 (0.6-1.2) mg/dl Est Cr Clr Drug Dosing 36.1 ml/min eGFR 45.73 BUN/Creatinine Ratio 12.0 (10-20) Glucose 78 (70-99(Fasting)) mg/dl Calcium 8.2 L (8.6-10.3) mg/dl Stool H. pylori Ag Pending Norovirus RNA (PCR) Crossmatch See Detail 03/24/24 Range/Units 19:55 WBC (4.8-10.8) K/ul RBC (4.20-5.40) M/uL Hgb (12.0-16.0) g/dl Hct (37.0-47.0) % MCV (80.0-100.0) fL MCH (25.0-34.0) pg MCHC (32.0-36.0) g/dL RDW Std Deviation (36.4-46.3) fL RDW Coeff of Xavier (11.5-14.5) % Plt Count (130-400) K/uL MPV (9.4-12.4) fL Absolute Nucleated RBC (0.00-0.12) K/uL Nucleated RBC % (auto) % PT (9.0-12.0) Seconds INR (0.9-1.1) Sodium (136-145) mmol/L Potassium (3.5-5.1) mmol/L Chloride (98-107) mmol/L Carbon Dioxide (21-32) mmol/L Anion Gap (3-11) BUN (6-23) mg/dl Creatinine (0.6-1.2) mg/dl Est Cr Clr Drug Dosing ml/min eGFR BUN/Creatinine Ratio (10-20) Glucose (70-99(Fasting)) mg/dl Calcium (8.6-10.3) mg/dl Stool H. pylori Ag Norovirus RNA (PCR) NOT DETECTED Crossmatch PG Care Time/CCT Total # of Minutes Spent Total Time Spent with Patient: Total time spent is greater than 50% in coordination of care (as documented) at patient's floor/unit and/or counseling patient: Coding Level of Care Code 16921 SUB INP/OBS CARE 235MIN Diagnoses Acute blood loss anemia D62
--- NOTE | 2024-03-28 10:18 | Hospitalist Progress Note ---
Date of Service March 28, 2024 Assessment & Plan (1) GI bleed: Plan: GI bleed due to anticoagulant therapy. Likely due to supratherapeutic INR on admission. GI consulted - 03/21 EGD non bleeding duodenal ulcer - likely source. H.pylori bx negative - 03/11 [place]: no signs of bleeding - 03/27 EGD: cratered ulcer with visable vessel - clip placed - BID IV PPI per discussion with GI, BID x10 days then daily x 3 months - h.pylori stool testing: negative - clear liquid diet, advance as tolerated - hold on heparin bridging until tomorrow Coumadin therapy for mechanical heart valve, goal is 2.5-3.5 - unfortunately Coumadin had to be reversed for EGD, plan for resumption of anticoagulation 03/28 - plan to restart coumadin tomorrow WITHOUT heparin bridge Cr increasing but now downtrending, baseline ~1.2-1.3 - 500cc NSS Bolus 03/24, additional 1L 03/25 - lasix held, resume lisinopril - encourage PO hydration PT/OT consulted for patient's weakness - recommend rehab AM CBC, BMP, INR (2) Vision changes: Plan: with hx of glaucoma - reports chronic blurry vision but acute worsening 03/28 afternoon - MRI brain pending (3) Acute blood loss anemia: Plan: Receive 2unit PRBCs during admission - Iron studies with component of iron deficiency anemia but also likely anemia of chronic disease - venofer x1 03/25 - hgb stable 7.5, recheck in AM (4) Aortic stenosis: Plan: Moderate to severe on last echo - may be contributing to dizzy sensation - monitor hydration status Check orthostatic VS (5) Diverticulitis: Plan: Patient presented to the ER on 03/18 with chief complaint of black diarrhea. CTAP: mild sigmoid diverticulitis Abx:Cipro/Flagyl given on admission, transitioned to Zosyn 03/19. - case discussed on [facility] Pharm[facility] rounds 03/24, based on colonoscopy findings, completed adequate course of zosyn. No leukocytosis, fever or abd pain. Agree with discontinuation. Patient w/ incontinent diarrhea since colonoscopy, this continues despite Imodium - cdiff negative - ova and parasite, norovirus pending - given return of bleed, this is likely the cause (6) Chest tightness: Plan: EKst degree AB block, RBBB unchanged, increased OR interval. Troponin 14.9 --> 13.9 Echo: LVEF >70%. severe LVH, bi-leaflet ([facility]) Aortic mechanical prosthesis. mod-severe valvular aortic stenosis. mild pulm regurgitation. moderate mitral annular calcification. moderate mitral stenosis. - Stable compared to prior. Cardiology consulted: Patient okay to proceed with endoscopies resume anticoagulation when bleeding resolves and hgb stabilizes. - IV heparin bridge okay to resume lasix - currently held with increasing Cr and poor PO intake no additional chest tightness reported Plan Chronic conditions: Hypertension: Continue lisinopril metoprolol Neuropathy: gabapentin Resolved conditions * Chest tightness. Echo unchanged from prior. Cardiology cleared for scopes. No EKG changes. DVT prophylaxis: held/being reversed for EGD 03/27 Disposition: continued inpatient stay, monitoring hgb and plan to restart anticoagulation 03/29 robin updated 03/24 & 03/26, 03/28 LM 03/27 Admission and Anticipated Discharge Date Admission Date: March 19, 2024 Supervising Physician Co-Signing Physician Notes Attending Attestation - Chart reviewed, care plan d/w DAYNA Figueroa. I agree w/ the regalado components of her documentation. Neymar Mckeon MD Subjective Patient seen this morning - feeling slightly better than yesterday, stools have slowed down. still having the lightheadedness - states she usually feels this way at home but this is worse received message from RN about new vision changes - was able to see snow but then no longer able to and this persisted with a headache. Tele - SR 70s Review of Systems Review of Systems: All systems reviewed & are unremarkable except as noted in Subjective Physical Exam Physical Exam: General: NAD, VS as above, lying in bed , appears ill but better than prior day HEENT: MM dry Resp: normal respiratory effort, lungs clear to auscultation CV: RRR, + murmur, Abd: normal bowel sounds, non tender, no hepatosplenomegaly Extremities: Moves all extremities, no edema Neuro: A&O x3, Skin: intact, no lesions noted Results & Data Results & Data Vital Signs (Past 12 Hours) Vital Signs Temp Pulse Pulse Resp BP Pulse Ox O2 Del Method 03/28/24 09:29 Room Air 03/28/24 07:55 98.4 F 76 18 153/77 H 98 Room Air 03/28/24 06:06 73 03/28/24 00:57 79 03/28/24 00:09 98.6 F 67 18 115/56 L 97 Room Air 03/28/24 00:01 Room Air Laboratory Results cbc, chemistry and INR reviewed PG Care Time/CCT Total # of Minutes Spent Total Time Spent with Patient: Total time spent is greater than 50% in coordination of care (as documented) at patient's floor/unit and/or counseling patient: Coding Level of Care Code 09986 SUB INP/OBS CARE 3/50MIN Diagnoses Gastrointestinal hemorrhage with melena K92.1 GI bleed type/associated pathology: melena Vision changes H53.9 Acute blood loss anemia D62 Aortic stenosis I35.0 Diverticulitis K57.92 Chest tightness R07.89 (1) GI bleed GI bleed type/associated pathology: melena Qualified Code(s): K92.1 - Melena
--- NOTE | 2024-03-28 18:54 | Magnetic Resonance Report ---
EXAM: MR brain wo con CLINICAL HISTORY: Vision changes with hx of glaucoma - reports chronic blurry vision but acute worsening 03/28 afternoon TECHNIQUE: MRI of the brain was performed without contrast with multiplanar sequences obtained. COMPARISON: CT dated 03/18/2024 FINDINGS: Brain Parenchyma: No evidence of acute infarction or hemorrhage. Normal cronin-white matter differentiation. Increased T2/flair signal of the deep periventricular white matter at the frontoparietal regions bilaterally. Few tiny foci of low gradient signal are seen bilateral lesions bilaterally. No mass lesions or focal cortical abnormalities identified. Ventricles and Sulci: Accentuated cortical sulci and extra-axial CSF spaces. Prominent ventricular system. Posterior Fossa: Prominent cerebellar folia. Unremarkable brainstem. Cranial Nerves: Normal course and appearance of cranial nerves identified. Vessels: No evidence of vascular malformations or aneurysms. Intracranial arteries and veins appear normal without evidence of stenosis or occlusion. Orbits and Skull Base: Right cataract operation. Orbits and skull base structures are normal without evidence of abnormalities. IMPRESSION: 1. Involutional brain changes. 2. Small vessel ischemic changes (FAzekas grade 3) with few tiny petechial hemorrhages. 3. No evidence of acute territorial infarct or intracranial hematomas. 4. Correlate with clinical findings. 5. No interval changes since prior study. Electronically signed by Jason Nj 03-28-2024 6:54 PM
[2024-03-29 06:31] LABS: Hematocrit (blood only) 23.6 % (37.0-47.0); Hemoglobin 7.4 g/dl (12.0-16.0); Mean Corpuscular Hemoglobin 33.9 pg (25.0-34.0); Mean Corpuscular Hgb Conc 31.4 g/dL (32.0-36.0); Mean Corpuscular Volume 108.3 fL (80.0-100.0); Mean Platelet Volume 9.9 fL (9.4-12.4); Platelet Count 185 K/uL (130-400); RDW Coefficient of Variation 19.9 % (11.5-14.5); RDW Standard Deviation 77.7 fL (36.4-46.3); Red Blood Count 2.18 M/uL (4.20-5.40); White Blood Count 7.33 K/ul (4.8-10.8)
[2024-03-29 06:53] LABS: BUN Creatinine Ratio 15.9 (10-20); Calcium 8.1 mg/dl (8.6-10.3)
[2024-03-29 06:55] LABS: INR 1.1 (0.9-1.1); Prothrombin Time 11.5 Seconds (9.0-12.0)
--- NOTE | 2024-03-29 11:55 | Hospitalist Progress Note ---
Date of Service March 29, 2024 Assessment & Plan (1) GI bleed: Plan: GI bleed due to anticoagulant therapy. Likely due to supratherapeutic INR on admission. GI consulted - 03/21 EGD non bleeding duodenal ulcer - likely source. H.pylori bx negative - 03/11 Sun: no signs of bleeding - 03/27 EGD: cratered ulcer with visable vessel - clip placed - BID IV PPI per discussion with GI, BID x10 days then daily x 3 months - h.pylori stool testing: negative - clear liquid diet, advance as tolerated Coumadin therapy for mechanical heart valve, goal is 2.5-3.5 - unfortunately Coumadin had to be reversed for EGD, plan for resumption of anticoagulation 03/28 - resume coumadin 03/29, no bridge, no loading dose. Cr increasing but now downtrending, baseline ~1.2-1.3 - 500cc NSS Bolus 03/24, additional 1L 03/25 - lasix held, resume lisinopril - encourage PO hydration PT/OT consulted for patient's weakness - recommend rehab, plan for [facility] CBC, BMP, INR Dark bloody stools have stopped. (2) Vision changes: Plan: with hx of glaucoma and cataracts- reports chronic blurry vision but acute worsening 03/28 afternoon - MRI brain: no acute findings vision changes back to baseline (3) Acute blood loss anemia: Plan: Receive 2unit PRBCs during admission - Iron studies with component of iron deficiency anemia but also likely anemia of chronic disease - venofer x1 03/25 - hgb stable 7.6 AM CBC (4) Aortic stenosis: Plan: Moderate to severe on last echo - may be contributing to dizzy sensation - monitor hydration status Check orthostatic VS - WNL (5) Diverticulitis: Plan: Patient presented to the ER on 03/18 with chief complaint of black diarrhea. CTAP: mild sigmoid diverticulitis Abx:Cipro/Flagyl given on admission, transitioned to Zosyn 03/19. - case discussed on ID Pharmacy rounds 03/24, based on colonoscopy findings, completed adequate course of zosyn. No leukocytosis, fever or abd pain. Agree with discontinuation. Patient w/ incontinent diarrhea since colonoscopy, this continues despite Imodium - cdiff negative - ova and parasite, norovirus pending - given return of bleed, this is likely the cause Plan Chronic conditions: Hypertension: Continue lisinopril metoprolol Neuropathy: gabapentin Resolved conditions * Chest tightness. Echo unchanged from prior. Cardiology cleared for scopes. No EKG changes. DVT prophylaxis: resume coumadin Disposition: continued inpatient stay, monitoring hgb and plan to restart anticoagulation 03/29 robin updated 03/24 & 03/26, 03/28 LM 03/27 Admission and Anticipated Discharge Date Admission Date: March 19, 2024 Supervising Physician Co-Signing Physician Notes Attending Attestation - Chart reviewed, care plan d/w DAYNA Figueroa. I agree w/ the regalado components of her documentation. Cautiously resume coumadin today WITHOUT any heparin bridge. Neymar Mckeon MD Subjective Patient seen lying in bed, today reporting neck and right arm pain. is unable to pinpoint an area of her right arm that hurts. Does have an IV site on that side but denies pain there able to lift arm, unable to charecterize pain dizziness and vision loss continue but reports not worse than what she normally has at home. patient no longer drives [employer] Review of Systems Review of Systems: All systems reviewed & are unremarkable except as noted in Subjective Physical Exam Physical Exam: General: NAD, VS as above, lying in bed , appears better than prior day HEENT: MM dry Resp: normal respiratory effort, lungs clear to auscultation CV: RRR, + murmur, Abd: normal bowel sounds, non tender, no hepatosplenomegaly Extremities: Moves all extremities, no edema. right arm non tender to palpation. ROM is not restriced. Equal director of compensation strength. No edema, eyrthema or signs concerning for infection or DVT Neuro: A&O x3, Skin: intact, no lesions noted Results & Data Results & Data Vital Signs (Past 12 Hours) Vital Signs Temp Pulse Pulse Resp BP BP Pulse Ox 03/29/24 11:19 98.4 F 67 16 91/48 L 97 03/29/24 10:28 03/29/24 07:49 98.2 F 65 16 107/46 L 98 03/29/24 05:44 60 03/29/24 02:06 98.4 F 64 16 107/65 96 03/29/24 01:17 03/29/24 01:17 78 O2 Del Method 03/29/24 11:19 Room Air 12/21/24 10:28 Room Air 03/29/24 07:49 Room Air 03/29/24 05:44 03/29/24 02:06 Room Air 03/29/24 01:17 Room Air 03/29/24 01:17 Laboratory Results CBc, chemistry reviewed INR reviewed Diagnostic Findings brain MRI reviewed PG Care Time/CCT Total # of Minutes Spent Total Time Spent with Patient: Total time spent is greater than 50% in coordination of care (as documented) at patient's floor/unit and/or counseling patient: Coding Level of Care Code 45065 SUB INP/OBS CARE 3/50MIN Diagnoses Gastrointestinal hemorrhage with melena K92.1 GI bleed type/associated pathology: melena Vision changes H53.9 Acute blood loss anemia D62 Aortic stenosis I35.0 Diverticulitis K57.92 (1) GI bleed GI bleed type/associated pathology: melena Qualified Code(s): K92.1 - Melena
[2024-03-30 08:31] LABS: Hematocrit (blood only) 30.1 % (37.0-47.0); Hemoglobin 9.2 g/dl (12.0-16.0); Mean Corpuscular Hemoglobin 33.7 pg (25.0-34.0); Mean Corpuscular Hgb Conc 30.6 g/dL (32.0-36.0); Mean Corpuscular Volume 110.3 fL (80.0-100.0); Mean Platelet Volume 10.1 fL (9.4-12.4); Platelet Count 223 K/uL (130-400); RDW Coefficient of Variation 19.3 % (11.5-14.5); RDW Standard Deviation 78.6 fL (36.4-46.3); Red Blood Count 2.73 M/uL (4.20-5.40)
[2024-03-30 09:02] LABS: INR 1.1 (0.9-1.1); Prothrombin Time 11.6 Seconds (9.0-12.0)
[2024-03-30 09:31] LABS: BUN Creatinine Ratio 17.4 (10-20); Creatinine Clr Calc Pharmacy 34.7 ml/min; Potassium 4.2 mmol/L (3.5-5.1)
[2024-03-30] MEDS ORDERED: traMADol HCL 50 MG TABLET PO PRN (10:42)
--- NOTE | 2024-03-30 10:47 | Discharge Summary ---
Discharge Summary Date of Service March 30, 2024 Principal Dx & Hospital Course #1 = Principal Diagnosis (1) GI bleed: GI bleed due to anticoagulant therapy. Likely due to supratherapeutic INR on admission. GI consulted - 03/21 EGD non bleeding duodenal ulcer - likely source - 03/11 [place]: no signs of bleeding - 03/27 EGD: cratered ulcer with visable vessel - clip placed - h.pylori stool testing: Negative - continue twice daily PPI through 04/06, then continue PPI daily through 07/08 Coumadin therapy for mechanical heart valve, goal is 2.5-3.5 - unfortunately Coumadin had to be reversed for EGD - received 5mg vit K - coumadin resumed 03/30 at home dose, no bridging/loading dose given recent rebleed. Continue to monitor INR PT/OT consulted for patient's weakness - recommend rehab, discharged [facility] today (2) Vision changes: with hx of glaucoma and cataracts- reports chronic blurry vision but acute worsening 03/28 afternoon - MRI brain: no acute findings vision changes back to baseline (3) Acute blood loss anemia: Receive 2unit PRBCs during admission - Iron studies with component of iron deficiency anemia but also likely anemia of chronic disease - venofer x1 03/25 - hgb stable 9.2 (4) Aortic stenosis: Moderate to severe on last echo - may be contributing to dizzy sensation - monitor hydration status Check orthostatic VS - WNL (5) Diverticulitis: Patient presented to the ER on 03/18 with chief complaint of black diarrhea. CTAP: mild sigmoid diverticulitis Abx:Cipro/Flagyl given on admission, transitioned to Zosyn 03/19. - case discussed on ID Pharmacy rounds 03/24, based on colonoscopy findings, completed adequate course of zosyn. No leukocytosis, fever or abd pain. Agree with discontinuation. Plan Chronic conditions: Hypertension: Continue lisinopril metoprolol and lasix Neuropathy: gabapentin - increased to 200mg HS for increased pain dispo: [facility] today robin updated 03/24 & 03/26, 03/30 LM 03/27 Notes For Next Care Provider - continue twice daily PPI through 04/06, then continue PPI daily through 07/08 Coumadin was restarted without a bridge due to rebleed when Coumadin was restarted after first EGD. Continue to monitor INR daily. Medication Changes From Visit PPI as above Gabapentin increased to 200 mg at bedtime tramadol increased to 3 times daily as needed Admission HPI Per Admitting Provider Aleida Ty is a 83 y/o F with a past medical history of mechanical aortic valve replacement approximately 30 years ago on warfarin, glaucoma, CKD stage 3, HTN, chronic knee/back pain arriving in the [facility] ED due to an instance of black diarrhea this morning. Patient reports that she was feeling weak, lightheaded and dizzy last night, and had some chest tightness and SOB that she reports is unusual for her. Patient notes that the chest tightness is lingering today but her SOB has improved. When asked how she is feeling today she reports that she is miserable and uncomfortable in the ED bed. She describes her pain as 6/10 in the left lower quadrant of her abdomen, radiating around her lower back. Patient continues to feel very weak, and complains of chronic pains in her legs and upper back as well. In the ED patient had a head CT that was within normal limits and a CT AP that showed sigmoid diverticulitis. Patient was started on IV ciprofloxacin and IV metronidazole for this infection, and was also given IV vitamin K as her INR was 6.0 with a baseline around 3.5-4.0 associated with chronic warfarin therapy. Today patient denies cough, wheeze, headache, palpitations and chest pain. Discharge Exam General: NAD, VS as above, lying in bed , appears better than prior day Resp: normal respiratory effort, lungs clear to auscultation CV: RRR, + murmur, Abd: normal bowel sounds, non tender, no hepatosplenomegaly Extremities: Moves all extremities, no edema. right arm non tender to palpation. ROM is not restriced. Equal head of transport logistics strength. No edema, eyrthema or signs concerning for infection or DVT Neuro: A&O x3, Skin: intact, no lesions noted Discharge Plan Discharge Items Patient Disposition: Home - Self-Care Reason For Visit: DIVERTICULITIS, GI BLEED Discharge Diagnosis: GI bleed Activity: As commented below Activity Comment: work with therapy to get stronger Weightbearing: Full weightbearing Non-emergency contact: Primary Care Provider Call non-emergency contact if: you have any medication questions, your symptoms worsen and your rectal temperature is above 100.4 Follow-up/Referrals: Song Pritchard CRNP [Primary Care Provider] - (follow up after discharge from [facility] ) Diet: Heart Healthy Add Attending Provider Instructions: Ms. Ty, You were hospitalized after having dark stools found to be a GI bleed. You also completed a course of antibiotics for diverticultis. Thankfully after your second EGD, they placed a clip in your stomach, and the bleeding has not returned. Your hemoglobin, the blood count has continued to rise. We have resumed your Coumadin and you will be going to rehab to get stronger. - please follow up with PCP after discharge from rehab - You will be on Protonix twice a day through 04/06 and then once a day for 3 months. For [facility]: - Coumadin resumed at home dose on 03/29 - no bridging or loading dose, due to bleeding when this was trialed last week. Please continue to check INRs, goal 2.5-3.5 (prostetic valve) - complaints of pain, gabapentin increased to 200mg HS and tramadol increased to TID prn - BID PPI through 04/06 and then daily until 07/08 Pending Studies at Discharge: Yes (stool ova and parasite ) Stand-Alone Forms: My [facility] [employer], Smoking Cessation Medications and DC Order Prescriptions: New gabapentin 100 mg Capsule 100 mg PO DAILY@0700,1300 Qty: 60 0RF gabapentin 100 mg Capsule 200 mg PO HS Qty: 60 0RF Continued lisinopril 10 mg tablet 10 mg PO DAILY Qty: 90 3RF diclofenac sodium [Arthritis Pain (diclofenac)] 1 % gel 2 g topical QID PRN (Reason: Pain) Rx Instructions: apply to single elbow, wrist or hand; for hand includes palm/fingers/back of hand warfarin 5 mg tablet 5 mg PO DAILY furosemide 20 mg tablet 20 mg PO DAILY Qty: 90 3RF (DME) Shower Chair Misc See Rx Instructions .Route Qty: 1 0RF Rx Instructions: As directed, bench that extends from outside to inside of tub latanoprost 0.005 % Drops 1 drp OPB PM Rx Instructions: both eyes metoprolol succinate 25 mg tablet extended release 24 hr 12.5 mg PO QAM dorzolamide 2 % drops 1 drp OPB BID brimonidine 0.2 % drops 1 drp OPB TID Changed tramadol 50 mg tablet 50 mg PO TID PRN (Reason: pain) Qty: 0 0RF Discontinued gabapentin 100 mg capsule 100 mg PO TID Qty: 90 2RF Discharge Orders: Discharge Order (Routine); Ordered 03/30/24 Ordered By: Leona Figueroa Admission Data Admit Date/Time: 03/19/24 00:15 Attending Provider: Neymar Mckeon Admit Provider: Quang Fuller Primary Care Provider: Song Pritchard Other Providers: Remi Wild; Sandee Santana; Jay Kumar; Katie Padilla; Pura Leonard; Leona Tobar; Nat Monet; Funmi Campbell; Teodoro Briceño; Andrés Roberson; Neo Funes; Sarah Xiong; Jeannette Avalos; Berna Guan; Alesia Brennan; Lori Montero; Brian Basurto; German Howell; María Langford; Ad Hilario Jr; Amauri Ackerman.; Everett Gamez; Antoni Lacey; Kevin Rg; Marielos Gerber; Nolan Craft I; Mickie Nichols; Zackery Dumont; IRB Approved Study,[facility]; [facility] Other Interventions: Discharge Summary Assessment (RN) Last Done: 03/30/24 10:49 Hospital Stay Data Consultations 03/18/24 20:16 ED Decision to Admit Stat 03/19/24 13:34 Consult Gastroenterology Routine 03/20/24 09:50 Consult Cardiology Routine Procedures Performed Operation Date: 03/27/24 16:30 Actual Procedures p EGD Hemostasis - Antoni Lacey MD Diagnostic Imagining Performed Abdomen/Pelvis CT 03/18/24 17:36 Exam(s): CT ABDOMEN + PELVIS With Contrast IV Amt: 90 ml optiray 320 EXAM: CT Abdomen and Pelvis With Intravenous Contrast CLINICAL HISTORY: Reason for exam: abd pain. TECHNIQUE: Axial computed tomography images of the abdomen and pelvis with intravenous contrast. CTDI is 24.94 mGy and DLP is 1067.37 mGy-cm. Automated exposure control was utilized for the study. A dose lowering technique was utilized adhering to the principles of ALARA. CONTRAST: Patient received 90 ml optiray 320 of IV contrast COMPARISON: No relevant prior studies available. FINDINGS: Mediastinum: Small hiatal hernia. ABDOMEN: Liver: Unremarkable. Gallbladder and bile ducts: Unremarkable. Pancreas: Unremarkable. Spleen: Unremarkable. Adrenals: Unremarkable. Kidneys and ureters: Multiple cortical cysts. Moderate right hydronephrosis to the level of the UPJ. No obstructing stone or perinephric laboratory changes suggest this is chronic. Stomach and bowel: Mild acute diverticulitis of the sigmoid colon. No perforation or abscess. PELVIS: Appendix: No findings to suggest acute appendicitis. Bladder: Unremarkable. Reproductive: Hysterectomy. ABDOMEN and PELVIS: Intraperitoneal space: Unremarkable. No free air. No significant fluid collection. Bones/joints: Left hip arthroplasty. Degenerative changes at the pubic symphysis which is widened. No acute fracture. Degenerative changes in the SI joints and in the lumbar spine. Soft tissues: Unremarkable. Vasculature: Aortobiiliac atherosclerotic calcifications. Mildly ectatic infrarenal abdominal aorta measuring up to 2.8 cm. Lymph nodes: Unremarkable. IMPRESSION: 1. Mild acute diverticulitis of the sigmoid colon. No perforation or abscess. 2. Small hiatal hernia. 3. Moderate right hydronephrosis to the level of the UPJ. No obstructing stone or perinephric laboratory changes suggest this is chronic. Electronically signed by: Ed Howard MD 03/18/24 20:[address] 03/18/24 17:46 Exam(s): CT HEAD Without Contrast EXAM: CT Head Without Intravenous Contrast CLINICAL HISTORY: Reason for exam: arnold. TECHNIQUE: Axial computed tomography images of the head/brain without intravenous contrast. CTDI is 36.43 mGy and DLP is 546.36 mGy-cm. Automated exposure control was utilized for the study. A dose lowering technique was utilized adhering to the principles of ALARA. COMPARISON: 07/30/2023 FINDINGS: Brain: No intracranial hemorrhage, mass-effect, or cerebral edema. Global parenchymal atrophy. Periventricular and subcortical low attenuation which is nonspecific but favored to represent chronic microvascular ischemic changes. Ventricles: Unremarkable. Bones/joints: Unremarkable. No fracture. Soft tissues: Unremarkable. Sinuses: No acute sinusitis. Mastoid air cells: Unremarkable as visualized. IMPRESSION: 1. No acute intracranial abnormality. Electronically signed by: Ed Howard MD 03/18/24 20:05 PM Renal Ultrasound 03/19/24 02:31 US renal/blad retro comp CLINICAL HISTORY: R. hydronephrosis with renal cysts TECHNIQUE: Multiple sonographic real-time images of the kidneys and bladder were obtained. COMPARISON: Comparison is made to CT abdomen pelvis 03/18/2024 FINDINGS: The right kidney measures 10.7 cm in length, and the left kidney measures 9.6 cm in length. The right kidney is normal in size, contour, cortical thickness, and echogenicity. No hydronephrosis is identified. Multiple cysts noted, the largest measuring 3.6 cm. The left kidney is normal in size, contour, cortical thickness and echogenicity. No hydronephrosis is identified. Multiple cysts noted, the largest measuring 3.0 cm. The bladder is partially distended. Bilateral jets are seen. IMPRESSION: Renal cysts are seen without complex features or concern for solid mass. ACT 112: Negative or not required by law. Electronically signed by: Isiah Goyal M.D. 03/19/2024 9:37 AM Brain MRI 03/28/24 12:23 EXAM: MR brain wo con CLINICAL HISTORY: Vision changes with hx of glaucoma - reports chronic blurry vision but acute worsening 03/28 afternoon TECHNIQUE: MRI of the brain was performed without contrast with multiplanar sequences obtained. COMPARISON: CT dated 03/18/2024 FINDINGS: Brain Parenchyma: No evidence of acute infarction or hemorrhage. Normal cronin-white matter differentiation. Increased T2/flair signal of the deep periventricular white matter at the frontoparietal regions bilaterally. Few tiny foci of low gradient signal are seen bilateral lesions bilaterally. No mass lesions or focal cortical abnormalities identified. Ventricles and Sulci: Accentuated cortical sulci and extra-axial CSF spaces. Prominent ventricular system. Posterior Fossa: Prominent cerebellar folia. Unremarkable brainstem. Cranial Nerves: Normal course and appearance of cranial nerves identified. Vessels: No evidence of vascular malformations or aneurysms. Intracranial arteries and veins appear normal without evidence of stenosis or occlusion. Orbits and Skull Base: Right cataract operation. Orbits and skull base structures are normal without evidence of abnormalities. IMPRESSION: 1. Involutional brain changes. 2. Small vessel ischemic changes (FAzekas grade 3) with few tiny petechial hemorrhages. 3. No evidence of acute territorial infarct or intracranial hematomas. 4. Correlate with clinical findings. 5. No interval changes since prior study. Electronically signed by Jason Nj 03-28-2024 6:54 PM Pending Results Patient Have Any Pending Studies at Discharge: Yes (stool ova and parasite ) Discharge Instructions Given to Patient (Per Discharging Provider) Ms. Ty, Yung were hospitalized after having dark stools found to be a GI bleed. You also completed a course of antibiotics for diverticultis. Thankfully after your second EGD, they placed a clip in your stomach, and the bleeding has not returned. Your hemoglobin, the blood count has continued to rise. We have resumed your Coumadin and you will be going to rehab to get stronger. - please follow up with PCP after discharge from rehab - You will be on Protonix twice a day through 04/06 and then once a day for 3 mo nths. For [facility]: - Coumadin resumed at home dose on 03/29 - no bridging or loading dose, due to bleeding when this was trialed last week. Please continue to check INRs, goal 2.5-3.5 (prostetic valve) - complaints of pain, gabapentin increased to 200mg HS and tramadol increased to TID prn - BID PPI through 04/06 and then daily until 07/08 Total Time Total Time Spent Total Time Spent (In Minutes): Time spent day of discharge 40 minutes including direct patient care, medication reconciliation, documentation, review of labs and images, and coordination of care. Coding Level of Care Code 24486 INP/OBS DISCH >30 MIN Diagnoses Gastrointestinal hemorrhage with melena K92.1 GI bleed type/associated pathology: melena Vision changes H53.9 Acute blood loss anemia D62 Aortic stenosis I35.0 Diverticulitis K57.92
[2024-03-30 11:39] VITALS: BP 129/70; RESP 14; TEMP 98.6; O2SAT 97
[2024-03-30] MEDS: GABAPENTIN 100 MG CAP PO SCH (14:52)
[2024-03-30 14:59] VITALS: PULSE 78
[2024-03-30] MEDS ORDERED: GABAPENTIN 100 MG CAP PO SCH (21:00)
== END 2024-03-30 15:25 | DRG 378 ==
LOC: ED 17:09 → 2W 03-19 00:15 → SUATTDRO 03-19 00:15 → 2W 03-19 01:40

== ENCOUNTER 2024-04-03 22:11 | Inpatient (IN) ==
[2024-04-03 22:42] LABS: iSTAT Creatinine 2.1 mg/dl (0.6-1.3); iSTAT Hemoglobin 8.8 g/dl (12.0-16.0); iSTAT Ionized Calcium 1.07 mmol/l (1.12-1.32); iSTAT Potassium 5.1 mmol/L (3.3-5.0)
[2024-04-03] MEDS: OPTIRAY 320 125ml IV ONE (22:49)
[2024-04-03 22:54] LABS: Basophils # (auto) 0.04 K/uL (0.00-0.20); Basophils % (auto) 0.4 %; Eosinophils # (auto) 0.13 K/uL (0.00-0.50); Eosinophils % (auto) 1.2 %; Hematocrit (blood only) 26.9 % (37.0-47.0); Hemoglobin 8.2 g/dl (12.0-16.0); Immature Granulocytes # (auto) 0.07 K/uL (0.01-0.20); Immature Granulocytes % (auto) 0.6 %; Lymphocytes # (auto) 0.94 K/uL (1.20-3.40); Lymphocytes % (auto) 8.6 %; Mean Corpuscular Hemoglobin 33.5 pg (25.0-34.0); Mean Corpuscular Hgb Conc 30.5 g/dL (32.0-36.0); Mean Corpuscular Volume 109.8 fL (80.0-100.0); Mean Platelet Volume 9.5 fL (9.4-12.4); Monocytes # (auto) 0.52 K/uL (0.11-0.59); Monocytes % (auto) 4.7 %; Neutrophils # (auto) 9.27 K/uL (1.40-6.50); Neutrophils % (auto) 84.5 %; Platelet Count 324 K/uL (130-400); RDW Coefficient of Variation 18.2 % (11.5-14.5); RDW Standard Deviation 74.2 fL (36.4-46.3); Red Blood Count 2.45 M/uL (4.20-5.40); White Blood Count 10.97 K/ul (4.8-10.8)
[2024-04-03 23:06] LABS: Albumin Globulin Ratio 0.8 (0.9-2); Albumin Level 3.2 gm/dl (3.4-5.0); BUN Creatinine Ratio 22.3 (10-20); Bilirubin,Total 0.3 mg/dl (0.2-1.0); Calcium 8.3 mg/dl (8.6-10.3); Creatinine Clr Calc Pharmacy 20.9 ml/min; Magnesium 2.1 mg/dl (1.7-2.4); Potassium 5.5 mmol/L (3.5-5.1); Total Protein 7.2 gm/dl (6.0-8.3)
--- NOTE | 2024-04-03 23:09 | CT Scan Report ---
Exam(s): CT HEAD Without Contrast EXAM: CT Head Without Intravenous Contrast CLINICAL HISTORY: neuro deficit, acute stroke suspected. TECHNIQUE: Axial computed tomography images of the head/brain without intravenous contrast. CTDI is 38.03 mGy and DLP is 624.41 mGy-cm. Automated exposure control was utilized for the study. A dose lowering technique was utilized adhering to the principles of ALARA. COMPARISON: 03/18/2024. FINDINGS: Brain: Age-appropriate generalized atrophy. No acute stroke. 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 Mild supratentorial periventricular and subcortical white matter changes. No acute hemorrhage or abnormal extra-axial fluid collection. Ventricles: No hydrocephalus. No midline shift. Bones/joints: Unremarkable. No acute fracture. Soft tissues: Unremarkable. Sinuses: Unremarkable as visualized. No acute sinusitis. IMPRESSION: No acute abnormality. No change from 03/18/2024. Communications: Call Doctor Stroke Electronically signed by: Damian Reyes M.D. 04/03/24 23:08 PM
[2024-04-03 23:11] LABS: Troponin I High Sensitivity 13.1 pg/ml (0-14)
--- NOTE | 2024-04-03 23:15 | CT Scan Report ---
Exam(s): CTA HEAD With Contrast IV Amt: 118 ML OPTIRAY 320 EXAM: CT Angiography Head With Intravenous Contrast CLINICAL HISTORY: neuro deficit, acute stroke suspected. TECHNIQUE: Axial computed tomographic angiography images of the head with intravenous contrast. CTDI is 31.14 mGy and DLP is 15.57 mGy-cm. Automated exposure control was utilized for the study. A dose lowering technique was utilized adhering to the principles of ALARA. 3D and MIP reconstructed images were created and reviewed. CONTRAST: Patient received 118 ML OPTIRAY 320 of IV contrast COMPARISON: CT Brain 04-03-2024. FINDINGS: Right internal carotid artery: Moderate calcified plaque at the cavernous internal carotid artery with intact distal runoff. No aneurysm. Right anterior cerebral artery: Unremarkable. No occlusion or significant stenosis. No aneurysm. Right middle cerebral artery: Unremarkable. No occlusion or significant stenosis. No aneurysm. Right posterior cerebral artery: Unremarkable. No occlusion or significant stenosis. No aneurysm. Right vertebral artery: Unremarkable as visualized. Left internal carotid artery: Moderate calcified plaque at the cavernous internal carotid artery with intact distal runoff. No aneurysm. Left anterior cerebral artery: Unremarkable. No occlusion or significant stenosis. No aneurysm. Left middle cerebral artery: Unremarkable. No occlusion or significant stenosis. No aneurysm. Left posterior cerebral artery: Unremarkable. No occlusion or significant stenosis. No aneurysm. Left vertebral artery: Unremarkable as visualized. Basilar artery: Unremarkable. No occlusion or significant stenosis. No aneurysm. IMPRESSION: No large vessel occlusion. Communications: Call Doctor Stroke Electronically signed by: Damian Reyes M.D. 04/03/24 23:14 PM
--- NOTE | 2024-04-03 23:22 | CT Scan Report ---
Exam(s): CTA NECK With Contrast IV Amt: 118 ML OPTIRAY 320 EXAM: CT Angiography Neck With Intravenous Contrast CLINICAL HISTORY: neuro deficit, acute stroke suspected. TECHNIQUE: Routine carotid CT angiography protocol was performed with intravenous contrast. NASCET criteria using the distal ICAs for comparison were used for evaluation of stenoses. CTDI is 13.08 mGy and DLP is 458.17 mGy-cm. Automated exposure control was utilized for the study. A dose lowering technique was utilized adhering to the principles of ALARA. 3D and MIP reconstructed images were created and reviewed. CONTRAST: Patient received 118 ML OPTIRAY 320 of IV contrast COMPARISON: None. FINDINGS: VASCULATURE: Right common carotid artery: Mild scattered calcifications. No occlusion or significant stenosis. No dissection. Right internal carotid artery: Extensive irregular carotid bulb calcified plaque with a likely hemodynamically significant stenosis of approximately 75%. No dissection. Right external carotid artery: Calcified plaque at the origin with a severe stenosis. No occlusion. Right vertebral artery: Unremarkable. No occlusion or significant stenosis. No dissection. Left common/internal carotid artery: Calcified plaque at the proximal and mid left common carotid artery. Distal common carotid and carotid bulb calcified plaque with a patent stent present. Remainder of the cervical right internal carotid artery is unremarkable. No dissection. Left external carotid artery: Unremarkable. No occlusion. Left vertebral artery: Unremarkable. No occlusion or significant stenosis. No dissection. NECK: Bones/joints: Degenerative changes of the spine. No acute fracture. Soft tissues: Unremarkable. Lung apices: Clear. CAROTID STENOSIS REFERENCE USING NASCET CRITERIA: % ICA stenosis = (1 - narrowest ICA diameter/diameter of distal cervical ICA) x 100. Mild - <50% stenosis. Moderate - 50-69% stenosis. Severe - 70-94% stenosis. Near occlusion - 95-99% stenosis. Occluded - 100% stenosis. IMPRESSION: Extensive irregular right carotid bulb partially calcified plaque with a likely hemodynamically significant stenosis of approximately 75% diameter stenosis. Status post left carotid bulb stent which remains patent. Calcified fibrous stenosis the origin of the right external carotid artery. Communications: Call Doctor Stroke Electronically signed by: Damian Reyes M.D. 04/03/24 23:20 PM
[2024-04-03 23:43] LABS: INR 2.1 (0.9-1.1); Partial Thromboplastin Ratio 1.4; Partial Thromboplastin Time 39 Seconds (21-31); Prothrombin Time 21.6 Seconds (9.0-12.0)
--- NOTE | 2024-04-04 00:16 | Emergency Department Note ---
Impression & Plan Encephalopathy acute, GERSON (acute kidney injury), Acute hyperkalemia, Acute confusion, Cerebral microvascular disease ED Provider Note NAME: CASTILLO CHAMORRO AGE: 83 SEX: F : 1940 ARRIVES VIA: Ambulance INFORMANT: Patient, ED PROVIDER(S): Aziza Hernandez MD CHIEF COMPLAINT: Unresponsive HPI: This is a 83-year-old female presenting for an unresponsive episode. Patient was last reported well at 730, prior to dinner. However EMS was reported that she may have had similar symptoms starting even yesterday documented by the physician at her facility. Reportedly patient was found to be right side weak with left facial droop. She is going on answering questions. She does have a cough and occasional snoring respirations. She appears lethargic. Reportedly patient was at dinner and had a food in her mouth. The food was then taken of her mouth and EMS was alerted. Patient does move all extremities with painful stimuli. She does not provide any history at this time ROS: Unable to obtain PHYSICAL EXAMINATION: General: Chronic unwell appearing Head: Normocephalic and atraumatic Eyes: Normal inspection, extraocular muscles intact, reactive bilaterally Ear, nose, throat: Normal external exam Neck: Normal range of motion Respiratory: Coarse lung sounds Cardiovascular: Regular rate/rhythm, no murmur GI: soft, nontender, no guarding or rebound Extremities: nontender, moves all extremities Neuro: Somnolent but arousable, some right motor weakness, left facial droop, not oriented or following commands Skin: Warm, dry, and intact MEDICAL DECISION MAKING: This is an 83-year-old female presented for unresponsive episode. Due to the last known well at 730, stroke alert was called. Patient went to CAT scan imaging. Blood was sent. Concern for metabolic pathology as patient is having snoring respirations, appears to have altered ental status more than neurologic deficits however these are also possible. -CT imaging reveals no intracranial process at this time such as LVO or hemorrhage. There is stenosis. Discussed this directly with the radiologist -Patient's blood work is significant abnormal with a WBC count of 11, hemoglobin 8.2, INR 2.1. With the INR, patient likely not a TNKase candidate. Creatinine is now doubled at 2.24. Potassium is 5.5. -Patient has intermittent waxing waning symptoms, concern for delirium versus encephalopathy. -X-ray as Independently interpreted by me does reveal diffuse hazy opacities in all lung ge concerning for fluid overload versus atypical pneumonia versus aspiration -Official x-ray does reveal fluid overload -Discussed care with Dr. Maria Alejandra Shaw, stroke neurologist to has evaluated the images and seen patient on the telestroke cart. He is also concerned about metabolic encephalopathy/infectious etiology. She does see extensive microvascular disease and wonders if the reported low blood pressure may be associated. Brents fluid resuscitation if patient will tolerate it. Otherwise possible MRI in the morning with EEG -Will add urinalysis, VBG, procalcitonin and BNP. -Care discussed with Dr. Rolanda Pedraza for admission at this time Differential diagnosis: Stroke, intracranial hemorrhage, CHF, encephalopathy, GERSON, hypercarbia Independent History obtained from: EMS Diagnostics interpreted by me: ECG: ECG independently interpreted by me with sinus bradycardia, rate of 59, normal axis, normal PA, normal QRS, normal QTc, no ST segment elevations consistent with STEMI criteria Cardiac Monitoring: An order was placed for continuous cardiac monitoring. The monitor shows a rate of 57 with sinus rhythm. Critical Care Note: I have personally spent 45 minutes of critical care time in the direct management of this patient. This includes bedside care, interpretation of diagnostic studies, and testing, discussion with consultants, patient, and family members, and other required patient management activities. This 45 minutes is in excess of all separately billable procedures. Past Med/Surg History Problem List (Updated 04/04/24 @ 00:46 by Aziza Hernandez MD) Cerebral microvascular disease (Acute) Acute confusion (Acute) Acute hyperkalemia (Acute) GERSON (acute kidney injury) (Acute) Encephalopathy acute (Acute) Vision changes Acute blood loss anemia Aortic stenosis Symptomatic anemia Chest tightness Hydronephrosis of right kidney Macrocytic anemia GI bleed (Acute) Diverticulitis (Acute) Chronic back pain Glaucoma CKD (chronic kidney disease) stage 3, GFR 30-59 ml/min HTN (hypertension) with goal to be determined On warfarin therapy Medical History Current every day smoker On warfarin therapy Hypertension Surgical History H/O mechanical aortic valve replacement Family History Brother Hypertension Heart disease Sister Hypertension Heart disease Mother Hypertension Heart disease Myocardial infarction Father Hypertension Heart disease Denies family history of Ovarian cancer Prostate cancer Breast cancer Lung cancer Colorectal cancer Stroke Social History Smoking Status: Smoker, status unknown Tobacco Type: Cigarettes Age Started Using Tobacco: 38; packs per day: 0.50; Cigarettes Per Day: 1/2 pack; Second Hand Exposure: No; Do You Dip or Chew Tobacco: No; Hx Alcohol Use: No Hx Substance Use: No Preferred Language: Citizen Of [place] Communication Ability: Effective Visual Impairment: Limited Hearing Ability: Normal Broomcorn Grader Required: No Beliefs That Will Affect Care: None marital status: / Current Living Situation: Alone Current Living Situation Comment: alone, says she has home healthcare current occupational status: retired How many Children do You have: 4 Feels Safe at Home: Yes Childhood Exposure to Second-Hand Smoke: Yes Diet: low salt caffeine: Yes Dental Care, Regularly: No Physical Activity Frequency: Does not Exercise Seatbelt Use: always Sunscreen Use: No Assistive Devices: Walker Allergies Allergies Allergy/AdvReac Type Severity Reaction Status Date / Time No Known Allergies Allergy Verified 03/27/24 08:32 Home Meds Home Medications Medication Instructions Recorded Confirmed latanoprost 0.005 % eye drops 1 drp OPB PM 07/31/23 03/18/24 warfarin 5 mg tablet 5 mg PO DAILY 08/20/23 03/18/24 diclofenac sodium 1 % topical gel 2 g topical QID PRN Pain 02/05/24 03/18/24 (Arthritis Pain (diclofenac)) brimonidine 0.2 % eye drops 1 drp OPB TID 03/18/24 03/18/24 dorzolamide 2 % eye drops 1 drp OPB BID 03/18/24 03/18/24 metoprolol succinate 25 mg 12.5 mg PO QAM 03/18/24 03/18/24 tablet,extended release 24 hr Previous Rx's Medication Instructions Recorded furosemide 20 mg tablet 20 mg PO DAILY #90 tabs 08/20/23 lisinopril 10 mg tablet 10 mg PO DAILY #90 tabs 10/30/23 Shower Chair #1 ea 11/20/23 gabapentin 100 mg capsule 100 mg PO DAILY@0700,1300 #60 caps 03/30/24 gabapentin 100 mg capsule 200 mg (2 x 100 mg) PO HS #60 caps 03/30/24 tramadol 50 mg tablet 50 mg PO TID PRN pain #0 tabs 03/30/24 Results & Data (ED) Vital Signs Vital Signs - 24 hr 04/03/24 22:14 04/03/24 22:20 04/03/24 22:57 Temperature 36.5 C Temperature Source Oral Pulse Rate 63 63 60 Respiratory Rate 18 17 Respiratory Effort / Characteristics Non-Labored Respiratory Depth Normal Respiratory Pattern Regular Blood Pressure 119/98 104/56 L Blood Pressure Mean 105 72 Pulse Oximetry 100 87 L Oxygen Delivery Method Room Air Room Air Oxygen Flow Rate Sepsis Recent Fever Within 48 Hours No Sepsis New/Unexplained Change in Mental Status Yes Sepsis Action Taken by Nursing No Action Required Oxygen Flow Rate - Titration Pulse Oximetry Post Tiitration 04/03/24 23:03 04/03/24 23:03 04/03/24 23:30 Temperature Temperature Source Pulse Rate 59 L 57 L Respiratory Rate 16 13 Respiratory Effort / Characteristics Respiratory Depth Respiratory Pattern Blood Pressure 131/68 160/74 H Blood Pressure Mean 89 102 Pulse Oximetry 84 L 95 95 Oxygen Delivery Method Room Air Oxymask Oxymask Oxymask Oxygen Flow Rate 6 6 Sepsis Recent Fever Within 48 Hours Sepsis New/Unexplained Change in Mental Status Sepsis Action Taken by Nursing Oxygen Flow Rate - Titration 6 Pulse Oximetry Post Tiitration 96 Laboratory Data 04/03/24 22:35 04/03/24 22:35 Lab Results 04/03/24 04/03/24 04/03/24 Range/Units 22:29 22:35 23:29 WBC 10.97 H (4.8-10.8) K/ul RBC 2.45 L (4.20-5.40) M/uL Hgb 8.2 L (12.0-16.0) g/dl POC Hgb 8.8 L (12.0-16.0) g/dl Hct 26.9 L (37.0-47.0) % POC Hct 26 L (37-47) % MCV 109.8 H (80.0-100.0) fL MCH 33.5 (25.0-34.0) pg MCHC 30.5 L (32.0-36.0) g/dL RDW Std Deviation 74.2 H (36.4-46.3) fL RDW Coeff of Xavier 18.2 H (11.5-14.5) % Plt Count 324 (130-400) K/uL MPV 9.5 (9.4-12.4) fL Immature Gran % (Auto) 0.6 % Neut % (Auto) 84.5 % Lymph % (Auto) 8.6 % [place] % (Auto) 4.7 % Eos % (Auto) 1.2 % Baso % (Auto) 0.4 % Neut # (Auto) 9.27 H (1.40-6.50) K/uL Lymph # (Auto) 0.94 L (1.20-3.40) K/uL [place] # (Auto) 0.52 (0.11-0.59) K/uL Eos # (Auto) 0.13 (0.00-0.50) K/uL Baso # (Auto) 0.04 (0.00-0.20) K/uL Immature Gran # (Auto) 0.07 (0.01-0.20) K/uL PT 21.6 H (9.0-12.0) Seconds INR 2.1 H (0.9-1.1) APTT 39 H (21-31) Seconds PTT Ratio 1.4 POC Sodium 136 (135-144) mmol/L Sodium 137 (136-145) mmol/L POC Potassium 5.1 H (3.3-5.0) mmol/L Potassium 5.5 H (3.5-5.1) mmol/L POC Chloride 109 (101-112) mmol/L Chloride 108 H (98-107) mmol/L Carbon Dioxide 20 L (21-32) mmol/L POC Total CO2 18 L (24-31) mmol/L Anion Gap 9 (3-11) POC Anion Gap 15.0 L (16-25) mmol/L POC BUN 38 H (7-18) mg/dl BUN 50 H (6-23) mg/dl Creatinine 2.24 H (0.6-1.2) mg/dl POC Creatinine 2.1 H (0.6-1.3) mg/dl Est Cr Clr Drug Dosing 20.9 ml/min eGFR 20.98 BUN/Creatinine Ratio 22.3 H (10-20) Glucose 105 H (70-99(Fasting)) mg/dl POC Glucose (other) 95 (70-99) mg/dl Calcium 8.3 L (8.6-10.3) mg/dl POC Ioniz Calcium Nikos 1.07 L (1.12-1.32) mmol/l Magnesium 2.1 (1.7-2.4) mg/dl Total Bilirubin 0.3 (0.2-1.0) mg/dl AST 29 (13-39) U/L ALT 23 (7-52) U/L Alkaline Phosphatase 126 H (34-104) U/L Troponin I High Sens 13.1 (0-14) pg/ml Total Protein 7.2 (6.0-8.3) gm/dl Albumin 3.2 L (3.4-5.0) gm/dl Globulin 4.0 (2.5-4.0) gm/dl Albumin/Globulin Ratio 0.8 L (0.9-2) Adenovirus (PCR) Not Detected (NotDetected) B. pertussis DNA (PCR) Not Detected (NotDetected) B.parapertussis DNA PCR Not Detected (NotDetected) C. pneumoniae DNA (PCR) Not Detected (NotDetected) Coronavirus OC43 (PCR) Not Detected (NotDetected) Coronavirus HKU1 (PCR) Not Detected (NotDetected) Coronavirus 229E (PCR) Not Detected (NotDetected) SARS-CoV-2 (PCR) Not Detected (NotDetected) Coronavirus NL63 (PCR) Not Detected (NotDetected) Human Metapneumovir PCR Not Detected (NotDetected) Influenza Type A (PCR) Not Detected (NotDetected) Influenza Type B (PCR) Not Detected (NotDetected) M. pneumoniae (PCR) Not Detected (NotDetected) Parainfluenza 1 (PCR) Not Detected (NotDetected) Parainfluenza 2 (PCR) Not Detected (NotDetected) Parainfluenza 3 (PCR) Not Detected (NotDetected) Parainfluenza 4 (PCR) Not Detected (NotDetected) RSV (PCR) Not Detected (NotDetected) Entero/Rhino (PCR) Not Detected (NotDetected) Blood Type O Positive Antibody Screen NEGATIVE Administered Medications Discontinued Medications Ioversol (Optiray 320 125ml) 125 ml IV ONCE ONE Stop: 04/03/24 22:50 Last Admin: 04/03/24 22:49 Dose: 118 ml Documented By: DOLORES Imaging Data Radiologist's Impression: Chest X-Ray 04/03/24 22:22 Exam(s): XR CXR 1 VIEW EXAM: XR Chest, 1 View CLINICAL HISTORY: aspiration. TECHNIQUE: Frontal view of the chest. COMPARISON: 07/30/2023. FINDINGS: Status post sternotomy. Heart is enlarged. Atherosclerotic vascular calcifications. Diffusion chest prominence compatible with CHF. No definite focal infiltrate. No pleural effusion or pneumothorax. Bones are osteopenic. Degenerative changes of the shoulders. IMPRESSION: Cardiomegaly. CHF. Electronically signed by: Damian Reyes M.D. 04/04/24 00:[address] 04/03/24 22:22 CR Exam(s): CT HEAD Without Contrast EXAM: CT Head Without Intravenous Contrast CLINICAL HISTORY: neuro deficit, acute stroke suspected. TECHNIQUE: Axial computed tomography images of the head/brain without intravenous contrast. CTDI is 38.03 mGy and DLP is 624.41 mGy-cm. Automated exposure control was utilized for the study. A dose lowering technique was utilized adhering to the principles of ALARA. COMPARISON: 03/18/2024. FINDINGS: Brain: Age-appropriate generalized atrophy. No acute stroke. 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 Mild supratentorial periventricular and subcortical white matter changes. No acute hemorrhage or abnormal extra-axial fluid collection. Ventricles: No hydrocephalus. No midline shift. Bones/joints: Unremarkable. No acute fracture. Soft tissues: Unremarkable. Sinuses: Unremarkable as visualized. No acute sinusitis. IMPRESSION: No acute abnormality. No change from 03/18/2024. Communications: Call Doctor Stroke Electronically signed by: Damian Reyes M.D. 04/03/24 23:08 PM Head CTA 04/03/24 22:22 CR Exam(s): CTA HEAD With Contrast IV Amt: 118 ML OPTIRAY 320 EXAM: CT Angiography Head With Intravenous Contrast CLINICAL HISTORY: neuro deficit, acute stroke suspected. TECHNIQUE: Axial computed tomographic angiography images of the head with intravenous contrast. CTDI is 31.14 mGy and DLP is 15.57 mGy-cm. Automated exposure control was utilized for the study. A dose lowering technique was utilized adhering to the principles of ALARA. 3D and MIP reconstructed images were created and reviewed. CONTRAST: Patient received 118 ML OPTIRAY 320 of IV contrast COMPARISON: CT Brain 04-03-2024. FINDINGS: Right internal carotid artery: Moderate calcified plaque at the cavernous internal carotid artery with intact distal runoff. No aneurysm. Right anterior cerebral artery: Unremarkable. No occlusion or significant stenosis. No aneurysm. Right middle cerebral artery: Unremarkable. No occlusion or significant stenosis. No aneurysm. Right posterior cerebral artery: Unremarkable. No occlusion or significant stenosis. No aneurysm. Right vertebral artery: Unremarkable as visualized. Left internal carotid artery: Moderate calcified plaque at the cavernous internal carotid artery with intact distal runoff. No aneurysm. Left anterior cerebral artery: Unremarkable. No occlusion or significant stenosis. No aneurysm. Left middle cerebral artery: Unremarkable. No occlusion or significant stenosis. No aneurysm. Left posterior cerebral artery: Unremarkable. No occlusion or significant stenosis. No aneurysm. Left vertebral artery: Unremarkable as visualized. Basilar artery: Unremarkable. No occlusion or significant stenosis. No aneurysm. IMPRESSION: No large vessel occlusion. Communications: Call Doctor Stroke Electronically signed by: Damian Reyes M.D. 04/03/24 23:14 PM Neck CTA 04/03/24 22:22 CR Exam(s): CTA NECK With Contrast IV Amt: 118 ML OPTIRAY 320 EXAM: CT Angiography Neck With Intravenous Contrast CLINICAL HISTORY: neuro deficit, acute stroke suspected. TECHNIQUE: Routine carotid CT angiography protocol was performed with intravenous contrast. NASCET criteria using the distal ICAs for comparison were used for evaluation of stenoses. CTDI is 13.08 mGy and DLP is 458.17 mGy-cm. Automated exposure control was utilized for the study. A dose lowering technique was utilized adhering to the principles of ALARA. 3D and MIP reconstructed images were created and reviewed. CONTRAST: Patient received 118 ML OPTIRAY 320 of IV contrast COMPARISON: None. FINDINGS: VASCULATURE: Right common carotid artery: Mild scattered calcifications. No occlusion or significant stenosis. No dissection. Right internal carotid artery: Extensive irregular carotid bulb calcified plaque with a likely hemodynamically significant stenosis of approximately 75%. No dissection. Right external carotid artery: Calcified plaque at the origin with a severe stenosis. No occlusion. Right vertebral artery: Unremarkable. No occlusion or significant stenosis. No dissection. Left common/internal carotid artery: Calcified plaque at the proximal and mid left common carotid artery. Distal common carotid and carotid bulb calcified plaque with a patent stent present. Remainder of the cervical right internal carotid artery is unremarkable. No dissection. Left external carotid artery: Unremarkable. No occlusion. Left vertebral artery: Unremarkable. No occlusion or significant stenosis. No dissection. NECK: Bones/joints: Degenerative changes of the spine. No acute fracture. Soft tissues: Unremarkable. Lung apices: Clear. CAROTID STENOSIS REFERENCE USING NASCET CRITERIA: % ICA stenosis = (1 - narrowest ICA diameter/diameter of distal cervical ICA) x 100. Mild - <50% stenosis. Moderate - 50-69% stenosis. Severe - 70-94% stenosis. Near occlusion - 95-99% stenosis. Occluded - 100% stenosis. IMPRESSION: Extensive irregular right carotid bulb partially calcified plaque with a likely hemodynamically significant stenosis of approximately 75% diameter stenosis. Status post left carotid bulb stent which remains patent. Calcified fibrous stenosis the origin of the right external carotid artery. Communications: Call Doctor Stroke Electronically signed by: Damian Reyes M.D. 04/03/24 23:20 PM Discharge Plan Visit Data Chief Complaint: Stroke Alert ED Provider: Aziza Hernandez Discharge Problem: Encephalopathy acute, GERSON (acute kidney injury), Acute hyperkalemia, Acute confusion, Cerebral microvascular disease Forms Stand Alone Forms: My [facility] PacketSled Prescriptions Prescriptions: No Action lisinopril 10 mg tablet 10 mg PO DAILY Qty: 90 3RF diclofenac sodium [Arthritis Pain (diclofenac)] 1 % gel 2 g topical QID PRN (Reason: Pain) Rx Instructions: apply to single elbow, wrist or hand; for hand includes palm/fingers/back of hand warfarin 5 mg tablet 5 mg PO DAILY furosemide 20 mg tablet 20 mg PO DAILY Qty: 90 3RF (DME) Shower Chair Misc See Rx Instructions .Route Qty: 1 0RF Rx Instructions: As directed, bench that extends from outside to inside of tub latanoprost 0.005 % Drops 1 drp OPB PM Rx Instructions: both eyes metoprolol succinate 25 mg tablet extended release 24 hr 12.5 mg PO QAM dorzolamide 2 % drops 1 drp OPB BID brimonidine 0.2 % drops 1 drp OPB TID gabapentin 100 mg Capsule 100 mg PO DAILY@0700,1300 Qty: 60 0RF gabapentin 100 mg Capsule 200 mg PO HS Qty: 60 0RF tramadol 50 mg tablet 50 mg PO TID PRN (Reason: pain) Qty: 0 0RF Referrals Referrals: Song Pritchard CRNP [Primary Care Provider] -
[2024-04-04 00:24] LABS: Adenovirus PCR Not Detected (NotDetected); Bordetella parapertussis PCR Not Detected (NotDetected); Bordetella pertussis PCR Not Detected (NotDetected); Chlamydia pneumoniae PCR Not Detected (NotDetected); Coronavirus 229E PCR Not Detected (NotDetected); Coronavirus CoV-2 (COVID19)PCR Not Detected (NotDetected); Coronavirus HKU1 PCR Not Detected (NotDetected); Coronavirus NL63 PCR Not Detected (NotDetected); Coronavirus OC43PCR Not Detected (NotDetected); Human Metapneumovirus PCR Not Detected (NotDetected); Influenza A PCR Not Detected (NotDetected); Influenza B PCR Not Detected (NotDetected); Mycoplasma pneumoniae PCR Not Detected (NotDetected); Parainfluenza Virus 1 PCR Not Detected (NotDetected); Parainfluenza Virus 2 PCR Not Detected (NotDetected); Parainfluenza Virus 3 PCR Not Detected (NotDetected); Parainfluenza Virus 4 PCR Not Detected (NotDetected); Respiratory Syncytial VirusPCR Not Detected (NotDetected); Rhinovirus/Enterovirus PCR Not Detected (NotDetected)
[2024-04-04 01:12] LABS: Base Excess VBG -4.8 mEq/L; HCO3 VBG 22 mmol/L; Oxygen Saturation VBG 79.8 %; PCO2 VBG 44 mmHg (38-50); PO2 VBG 51 mmHg
--- NOTE | 2024-04-04 01:25 | History & Physical Report ---
Date of Service April 04, 2024 Assessment & Plan (1) Encephalopathy acute: Plan: 83-year-old female presenting from her facility with acute metabolic encephalopathy. Patient possibly with several days of confusion, unresponsive episode today prior to arrival. Patient initially hypoxic on arrival with saturations of 84%. Questionable aspiration event prior to arrival. remainder of workup significant for leukocytosis with WBC = 10.97, macrocytic anemia with Hgb = 8.2, HCT = 26.9, MCV = 109.8 (all near baseline values) INR is subtherapeutic at 2.1 differential to include possible TIA, CVA, infection, medication effects, Possible seizure Admit to medical with telemetry check MRI brain. Patient is unable to answer the questionnaire so this will need to be postponed until tomorrow when family can be reached - PT/OT evaluation Consider EEG (2) Aortic stenosis: Plan: patient status post mechanical AVR. On Coumadin anticoagulation. INR subtherapeutic at 2.1 Continue (3) HTN (hypertension) with goal to be determined: Plan: blood pressure within normal limits at present Hold antihypertensives for now Continue to monitor History of Present Illness Chief Complaint: Unresponsive Primary Care Provider: DARNELL Lemus Aleida Ty is An 83-year-old female with history of hypertension, CKD, status post mechanical aortic valve on Coumadin anticoagulation presenting from her facility after being found unresponsive. Patient was last seen well around 1930 prior to dinner but EMS reports that her symptoms may have started yesterday as confusion was documented by the physician at her facility. Patient thought to have a left-sided facial droop and right- sided weakness. She became unresponsive with food in her mouth, uncertain of any aspiration event patient unable to provide history during encounter. History obtained through discussion with ER staff as well as chart review Allergies Allergy/AdvReac Type Severity Reaction Status Date / Time No Known Allergies Allergy Verified 03/27/24 08:32 Home Medications Medication Instructions Recorded Confirmed Type latanoprost 0.005 % eye drops 1 drp OPB PM 07/31/23 03/18/24 History furosemide 20 mg tablet 20 mg PO DAILY #90 tabs 08/20/23 03/18/24 Rx warfarin 5 mg tablet 5 mg PO DAILY 08/20/23 03/18/24 History lisinopril 10 mg tablet 10 mg PO DAILY #90 tabs 10/30/23 03/18/24 Rx Shower Chair #1 ea 11/20/23 03/18/24 Rx diclofenac sodium 1 % topical gel 2 g topical QID PRN Pain 02/05/24 03/18/24 History (Arthritis Pain (diclofenac)) brimonidine 0.2 % eye drops 1 drp OPB TID 03/18/24 03/18/24 History dorzolamide 2 % eye drops 1 drp OPB BID 03/18/24 03/18/24 History metoprolol succinate 25 mg 12.5 mg PO QAM 03/18/24 03/18/24 History tablet,extended release 24 hr gabapentin 100 mg capsule 100 mg PO DAILY@0700,1300 #60 caps 03/30/24 Rx gabapentin 100 mg capsule 200 mg (2 x 100 mg) PO HS #60 caps 03/30/24 Rx tramadol 50 mg tablet 50 mg PO TID PRN pain #0 tabs 03/30/24 03/18/24 Rx Past Med/Surg History Problem List Cerebral microvascular disease (Acute) Acute confusion (Acute) Acute hyperkalemia (Acute) GERSON (acute kidney injury) (Acute) Encephalopathy acute (Acute) Vision changes Acute blood loss anemia Aortic stenosis Symptomatic anemia Chest tightness Hydronephrosis of right kidney Macrocytic anemia GI bleed (Acute) Diverticulitis (Acute) Chronic back pain Glaucoma CKD (chronic kidney disease) stage 3, GFR 30-59 ml/min HTN (hypertension) with goal to be determined On warfarin therapy Medical History Current every day smoker On warfarin therapy Hypertension Surgical History H/O mechanical aortic valve replacement Family History Brother Hypertension Heart disease Sister Hypertension Heart disease Mother Hypertension Heart disease Myocardial infarction Father Hypertension Heart disease Denies family history of Ovarian cancer Prostate cancer Breast cancer Lung cancer Colorectal cancer Stroke Social History Smoking Status: Smoker, status unknown Tobacco Type: Cigarettes Age Started Using Tobacco: 38; packs per day: 0.50; Cigarettes Per Day: 1/2 pack; Second Hand Exposure: No; Do You Dip or Chew Tobacco: No; Hx Alcohol Use: No Hx Substance Use: No Preferred Language: Cuban Communication Ability: Effective Visual Impairment: Limited Hearing Ability: Normal Industrial Arts 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 Required: No Beliefs That Will Affect Care: None marital status: / Current Living Situation: Alone Current Living Situation Comment: alone, says she has home healthcare current occupational status: retired How many Children do You have: 4 Feels Safe at Home: Yes Childhood Exposure to Second-Hand Smoke: Yes Diet: low salt caffeine: Yes Dental Care, Regularly: No Physical Activity Frequency: Does not Exercise Seatbelt Use: always Sunscreen Use: No Assistive Devices: Walker Review of Systems Review of Systems: Unobtainable due to reduced consciousness Physical Exam Physical Exam: General: patient is somnolent, withdraws from noxious stimuli and deep sternal rub Skin: warm, dry, intact, no rashes or lesions HEENT: NC/AT, PERRL, EOMI, anicteric sclera, conjunctiva without injection, external ear normal to inspection and nontender, nares patent, moist mucus membranes, dentition intact, no oropharyngeal lesions, neck supple, trachea midline, no LAD, no thyromegaly, no JVD Heart: +S1/S2, regular, no m/r/g Lungs: equal air entry bilaterally, no rales/rhonchi/wheezes Abd: +BS, soft, ND, no masses/organomegaly/ascites Ext: warm, 2+ pulses in UE/LE bilaterally, no clubbing/cyanosis or edema neuro: Patient is somnolent, withdraws from noxious stimuli, pupils equal round and reactive Results & Data Results & Data Vital Signs (Past 12 Hours) Vital Signs Temp Pulse Resp BP Pulse Ox O2 Del Method O2 Flow Rate 04/04/24 01:00 56 L 17 160/78 H 100 Oxymask 5 04/04/24 00:03 55 L 15 103/68 100 Oxymask 04/03/24 23:30 57 L 13 160/74 H 95 Oxymask 6 04/03/24 23:03 59 L 16 131/68 95 Oxymask 6 04/03/24 23:03 84 L Room Air, Oxymask 04/03/24 22:57 60 17 104/56 L 87 L Room Air 04/03/24 22:20 36.5 C 63 18 119/98 100 Room Air 04/03/24 22:14 63 Laboratory Results Laboratory Results WBC 10.97 K/ul (4.8-10.8) H 04/03/24 22:35 RBC 2.45 M/uL (4.20-5.40) L 04/03/24 22:35 Hgb 8.2 g/dl (12.0-16.0) L 04/03/24 22:35 POC Hgb 8.8 g/dl (12.0-16.0) L 04/03/24 22:29 Hct 26.9 % (37.0-47.0) L 04/03/24 22:35 POC Hct 26 % (37-47) L 04/03/24 22:29 MCV 109.8 fL (80.0-100.0) H 04/03/24 22:35 MCH 33.5 pg (25.0-34.0) 04/03/24 22:35 MCHC 30.5 g/dL (32.0-36.0) L 04/03/24 22:35 RDW Std Deviation 74.2 fL (36.4-46.3) H 04/03/24 22:35 RDW Coeff of Xavier 18.2 % (11.5-14.5) H 04/03/24 22:35 Plt Count 324 K/uL (130-400) 04/03/24 22:35 MPV 9.5 fL (9.4-12.4) 04/03/24 22:35 Immature Gran % (Auto) 0.6 % 04/03/24 22:35 Neut % (Auto) 84.5 % 04/03/24 22:35 Lymph % (Auto) 8.6 % 04/03/24 22:35 [place] % (Auto) 4.7 % 04/03/24 22:35 Eos % (Auto) 1.2 % 04/03/24 22:35 Baso % (Auto) 0.4 % 04/03/24 22:35 Neut # (Auto) 9.27 K/uL (1.40-6.50) H 04/03/24 22:35 Lymph # (Auto) 0.94 K/uL (1.20-3.40) L 04/03/24 22:35 [place] # (Auto) 0.52 K/uL (0.11-0.59) 04/03/24 22:35 Eos # (Auto) 0.13 K/uL (0.00-0.50) 04/03/24 22:35 Baso # (Auto) 0.04 K/uL (0.00-0.20) 04/03/24 22:35 Immature Gran # (Auto) 0.07 K/uL (0.01-0.20) 04/03/24 22:35 PT 21.6 Seconds (9.0-12.0) H 04/03/24 22:35 INR 2.1 (0.9-1.1) H 04/03/24 22:35 APTT 39 Seconds (21-31) H 04/03/24 22:35 PTT Ratio 1.4 04/03/24 22:35 VBG pH 7.30 (7.36-7.41) L 04/04/24 01:04 VBG pCO2 44 mmHg (38-50) 04/04/24 01:04 VBG pO2 51 mmHg 04/04/24 01:04 VBG HCO3 22 mmol/L 04/04/24 01:04 VBG O2 Saturation 79.8 % 04/04/24 01:04 VBG Base Excess -4.8 mEq/L 04/04/24 01:04 POC Sodium 136 mmol/L (135-144) 04/03/24 22:29 Sodium 137 mmol/L (136-145) 04/04/24 01:04 POC Potassium 5.1 mmol/L (3.3-5.0) H 04/03/24 22:29 Potassium 4.9 mmol/L (3.5-5.1) 04/04/24 01:04 POC Chloride 109 mmol/L (101-112) 04/03/24 22:29 Chloride 108 mmol/L (98-107) H 04/04/24 01:04 Carbon Dioxide 21 mmol/L (21-32) 04/04/24 01:04 POC Total CO2 18 mmol/L (24-31) L 04/03/24 22:29 Anion Gap 8 (3-11) 04/04/24 01:04 POC Anion Gap 15.0 mmol/L (16-25) L 04/03/24 22:29 POC BUN 38 mg/dl (7-18) H 04/03/24 22:29 BUN 49 mg/dl (6-23) H 04/04/24 01:04 Creatinine 2.13 mg/dl (0.6-1.2) H 04/04/24 01:04 POC Creatinine 2.1 mg/dl (0.6-1.3) H 04/03/24 22:29 Est Cr Clr Drug Dosing 22.0 ml/min 04/04/24 01:04 eGFR 22.28 04/04/24 01:04 BUN/Creatinine Ratio 23.0 (10-20) H 04/04/24 01:04 Glucose 104 mg/dl (70-99(Fasting)) H 04/04/24 01:04 POC Glucose (other) 95 mg/dl (70-99) 04/03/24 22:29 Calcium 8.7 mg/dl (8.6-10.3) 04/04/24 01:04 POC Ioniz Calcium Nikos 1.07 mmol/l (1.12-1.32) L 04/03/24 22:29 Magnesium 2.1 mg/dl (1.7-2.4) 04/03/24 22:35 Total Bilirubin 0.3 mg/dl (0.2-1.0) 04/03/24 22:35 AST 29 U/L (13-39) 04/03/24 22:35 ALT 23 U/L (7-52) 04/03/24 22:35 Alkaline Phosphatase 126 U/L (34-104) H 04/03/24 22:35 Troponin I High Sens 13.1 pg/ml (0-14) 04/03/24 22:35 B-Natriuretic Peptide 153 pg/ml (0-100) H 04/04/24 01:04 Total Protein 7.2 gm/dl (6.0-8.3) 04/03/24 22:35 Albumin 3.2 gm/dl (3.4-5.0) L 04/03/24 22:35 Globulin 4.0 gm/dl (2.5-4.0) 04/03/24 22:35 Albumin/Globulin Ratio 0.8 (0.9-2) L 04/03/24 22:35 Procalcitonin 0.44 ng/ml (0-0.5) 04/04/24 01:04 Urine Color Yellow 04/04/24 01:19 Urine Appearance Clear (Clear) 04/04/24 01:19 Urine pH 5.0 (4.5-7.5) 04/04/24 01:19 Ur Specific [place] 1.027 (1.000-1.030) 04/04/24 01:19 Urine Protein Negative (Negative) 04/04/24 01:19 Urine Glucose (UA) Negative (Negative) 04/04/24 01:19 Urine Ketones Trace (Negative) H 04/04/24 01:19 Urine Blood Negative (Negative) 04/04/24 01:19 Urine Nitrite Negative (Negative) 04/04/24 01:19 Urine Bilirubin Negative (Negative) 04/04/24 01:19 Urine Urobilinogen Negative (Negative) 04/04/24 01:19 Ur Leukocyte Esterase Negative (Negative) 04/04/24 01:19 Adenovirus (PCR) Not Detected (NotDetected) 04/03/24 23:29 B. pertussis DNA (PCR) Not Detected (NotDetected) 04/03/24 23:29 B.parapertussis DNA PCR Not Detected (NotDetected) 04/03/24 23:29 C. pneumoniae DNA (PCR) Not Detected (NotDetected) 04/03/24 23:29 Coronavirus OC43 (PCR) Not Detected (NotDetected) 04/03/24 23:29 Coronavirus HKU1 (PCR) Not Detected (NotDetected) 04/03/24 23:29 Coronavirus 229E (PCR) Not Detected (NotDetected) 04/03/24 23:29 SARS-CoV-2 (PCR) Not Detected (NotDetected) 04/03/24 23:29 Coronavirus NL63 (PCR) Not Detected (NotDetected) 04/03/24 23:29 Human Metapneumovir PCR Not Detected (NotDetected) 04/03/24 23:29 Influenza Type A (PCR) Not Detected (NotDetected) 04/03/24 23:29 Influenza Type B (PCR) Not Detected (NotDetected) 04/03/24 23:29 M. pneumoniae (PCR) Not Detected (NotDetected) 04/03/24 23:29 Parainfluenza 1 (PCR) Not Detected (NotDetected) 04/03/24 23:29 Parainfluenza 2 (PCR) Not Detected (NotDetected) 04/03/24 23:29 Parainfluenza 3 (PCR) Not Detected (NotDetected) 04/03/24 23:29 Parainfluenza 4 (PCR) Not Detected (NotDetected) 04/03/24 23:29 RSV (PCR) Not Detected (NotDetected) 04/03/24 23:29 Entero/Rhino (PCR) Not Detected (NotDetected) 04/03/24 23:29 Blood Type O Positive 04/03/24 22:35 Antibody Screen NEGATIVE 04/03/24 22:35 Impressions Chest X-Ray 04/03/24 22:22 Exam(s): XR CXR 1 VIEW EXAM: XR Chest, 1 View CLINICAL HISTORY: aspiration. TECHNIQUE: Frontal view of the chest. COMPARISON: 07/30/2023. FINDINGS: Status post sternotomy. Heart is enlarged. Atherosclerotic vascular calcifications. Diffusion chest prominence compatible with CHF. No definite focal infiltrate. No pleural effusion or pneumothorax. Bones are osteopenic. Degenerative changes of the shoulders. IMPRESSION: Cardiomegaly. CHF. Electronically signed by: Damian Reyes M.D. 04/04/24 00:[address] 04/03/24 22:22 CR Exam(s): CT HEAD Without Contrast EXAM: CT Head Without Intravenous Contrast CLINICAL HISTORY: neuro deficit, acute stroke suspected. TECHNIQUE: Axial computed tomography images of the head/brain without intravenous contrast. CTDI is 38.03 mGy and DLP is 624.41 mGy-cm. Automated exposure control was utilized for the study. A dose lowering technique was utilized adhering to the principles of ALARA. COMPARISON: 03/18/2024. FINDINGS: Brain: Age-appropriate generalized atrophy. No acute stroke. 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 Mild supratentorial periventricular and subcortical white matter changes. No acute hemorrhage or abnormal extra-axial fluid collection. Ventricles: No hydrocephalus. No midline shift. Bones/joints: Unremarkable. No acute fracture. Soft tissues: Unremarkable. Sinuses: Unremarkable as visualized. No acute sinusitis. IMPRESSION: No acute abnormality. No change from 03/18/2024. Communications: Call Doctor Stroke Electronically signed by: Damian Reyes M.D. 04/03/24 23:08 PM Head CTA 04/03/24 22:22 CR Exam(s): CTA HEAD With Contrast IV Amt: 118 ML OPTIRAY 320 EXAM: CT Angiography Head With Intravenous Contrast CLINICAL HISTORY: neuro deficit, acute stroke suspected. TECHNIQUE: Axial computed tomographic angiography images of the head with intravenous contrast. CTDI is 31.14 mGy and DLP is 15.57 mGy-cm. Automated exposure control was utilized for the study. A dose lowering technique was utilized adhering to the principles of ALARA. 3D and MIP reconstructed images were created and reviewed. CONTRAST: Patient received 118 ML OPTIRAY 320 of IV contrast COMPARISON: CT Brain 04-03-2024. FINDINGS: Right internal carotid artery: Moderate calcified plaque at the cavernous internal carotid artery with intact distal runoff. No aneurysm. Right anterior cerebral artery: Unremarkable. No occlusion or significant stenosis. No aneurysm. Right middle cerebral artery: Unremarkable. No occlusion or significant stenosis. No aneurysm. Right posterior cerebral artery: Unremarkable. No occlusion or significant stenosis. No aneurysm. Right vertebral artery: Unremarkable as visualized. Left internal carotid artery: Moderate calcified plaque at the cavernous internal carotid artery with intact distal runoff. No aneurysm. Left anterior cerebral artery: Unremarkable. No occlusion or significant stenosis. No aneurysm. Left middle cerebral artery: Unremarkable. No occlusion or significant stenosis. No aneurysm. Left posterior cerebral artery: Unremarkable. No occlusion or significant stenosis. No aneurysm. Left vertebral artery: Unremarkable as visualized. Basilar artery: Unremarkable. No occlusion or significant stenosis. No aneurysm. IMPRESSION: No large vessel occlusion. Communications: Call Doctor Stroke Electronically signed by: Damian Reyes M.D. 04/03/24 23:14 PM Neck CTA 04/03/24 22:22 CR Exam(s): CTA NECK With Contrast IV Amt: 118 ML OPTIRAY 320 EXAM: CT Angiography Neck With Intravenous Contrast CLINICAL HISTORY: neuro deficit, acute stroke suspected. TECHNIQUE: Routine carotid CT angiography protocol was performed with intravenous contrast. NASCET criteria using the distal ICAs for comparison were used for evaluation of stenoses. CTDI is 13.08 mGy and DLP is 458.17 mGy-cm. Automated exposure control was utilized for the study. A dose lowering technique was utilized adhering to the principles of ALARA. 3D and MIP reconstructed images were created and reviewed. CONTRAST: Patient received 118 ML OPTIRAY 320 of IV contrast COMPARISON: None. FINDINGS: VASCULATURE: Right common carotid artery: Mild scattered calcifications. No occlusion or significant stenosis. No dissection. Right internal carotid artery: Extensive irregular carotid bulb calcified plaque with a likely hemodynamically significant stenosis of approximately 75%. No dissection. Right external carotid artery: Calcified plaque at the origin with a severe stenosis. No occlusion. Right vertebral artery: Unremarkable. No occlusion or significant stenosis. No dissection. Left common/internal carotid artery: Calcified plaque at the proximal and mid left common carotid artery. Distal common carotid and carotid bulb calcified plaque with a patent stent present. Remainder of the cervical right internal carotid artery is unremarkable. No dissection. Left external carotid artery: Unremarkable. No occlusion. Left vertebral artery: Unremarkable. No occlusion or significant stenosis. No dissection. NECK: Bones/joints: Degenerative changes of the spine. No acute fracture. Soft tissues: Unremarkable. Lung apices: Clear. CAROTID STENOSIS REFERENCE USING NASCET CRITERIA: % ICA stenosis = (1 - narrowest ICA diameter/diameter of distal cervical ICA) x 100. Mild - <50% stenosis. Moderate - 50-69% stenosis. Severe - 70-94% stenosis. Near occlusion - 95-99% stenosis. Occluded - 100% stenosis. IMPRESSION: Extensive irregular right carotid bulb partially calcified plaque with a likely hemodynamically significant stenosis of approximately 75% diameter stenosis. Status post left carotid bulb stent which remains patent. Calcified fibrous stenosis the origin of the right external carotid artery. Communications: Call Doctor Stroke Electronically signed by: Damian Reyes M.D. 04/03/24 23:20 PM PG Care Time/CCT Total # of Minutes Spent Total Time Spent with Patient: Total time spent is greater than 50% in coordination of care (as documented) at patient's floor/unit and/or counseling patient: Coding Level of Care Code 37379 INT INP/OBS CARE 3/75MIN Diagnoses Encephalopathy acute G93.40 Aortic stenosis I35.0 HTN (hypertension) with goal to be determined I10
[2024-04-04 01:29] LABS: Appearance Urine Clear (Clear); Bilirubin Urine Negative (Negative); Blood Urine Negative (Negative); Color Urine Yellow; Glucose Urine UA Negative (Negative); Ketones Urine Trace (Negative); Leukocyte Esterase Urine Negative (Negative); Nitrite Urine Negative (Negative); Protein Urine Negative (Negative); Specific Gravity Urine 1.027 (1.000-1.030); Urobilinogen Urine Negative (Negative)
[2024-04-04 01:35] LABS: Calcium 8.7 mg/dl (8.6-10.3); Potassium 4.9 mmol/L (3.5-5.1)
[2024-04-04] MEDS ORDERED: PHARMACIST DISCHARGE MED REC CONSULT PRN (03:24)
[2024-04-04] MEDS ORDERED: ONDANSETRON INJ 2 MG/ML 2 ML VIAL IV PRN (03:24)
[2024-04-04] MEDS: CALCIUM GLUCONATE 1,000 MG/60 ML BAG IV STA (03:43)
[2024-04-04 11:51] LABS: Basophils # (auto) 0.03 K/uL (0.00-0.20); Basophils % (auto) 0.3 %; Eosinophils # (auto) 0.23 K/uL (0.00-0.50); Eosinophils % (auto) 2.2 %; Hematocrit (blood only) 28.7 % (37.0-47.0); Hemoglobin 8.8 g/dl (12.0-16.0); Immature Granulocytes # (auto) 0.06 K/uL (0.01-0.20); Immature Granulocytes % (auto) 0.6 %; Lymphocytes # (auto) 1.02 K/uL (1.20-3.40); Lymphocytes % (auto) 9.7 %; Mean Corpuscular Hemoglobin 33.8 pg (25.0-34.0); Mean Corpuscular Hgb Conc 30.7 g/dL (32.0-36.0); Mean Corpuscular Volume 110.4 fL (80.0-100.0); Mean Platelet Volume 9.7 fL (9.4-12.4); Monocytes # (auto) 0.65 K/uL (0.11-0.59); Monocytes % (auto) 6.2 %; Neutrophils # (auto) 8.54 K/uL (1.40-6.50); Platelet Count 333 K/uL (130-400); RDW Coefficient of Variation 18.2 % (11.5-14.5); RDW Standard Deviation 74.5 fL (36.4-46.3); White Blood Count 10.53 K/ul (4.8-10.8)
[2024-04-04 12:03] LABS: Chol HDL Ratio 4.3 (0-5)
[2024-04-04 12:17] LABS: Macrocytosis Present
--- NOTE | 2024-04-04 12:19 | Hospitalist Progress Note ---
Date of Service April 04, 2024 Assessment & Plan (1) Encephalopathy acute: (2) Aortic stenosis: (3) HTN (hypertension) with goal to be determined: Plan 83-year-old female presenting from her facility with acute metabolic encephalopathy. Patient possibly with several days of confusion, unresponsive episode today prior to arrival. Encephalopathy versus CVA, acute - Patient initially hypoxic on arrival with saturations of 84%. Questionable aspiration event prior to arrival. - INR is subtherapeutic at 2.[address] and CTA w/o evidence of acute stroke - Neck CTA showing extensive irregular carotid bulb calcified plaque with a likely hemodynamically significant stenosis of approximately 75%. - Brain MRI age-appropriate atrophy and w/o evidence of acute or subacute infarct; no acute intracranial hemorrhage - DDx of TIA versus HTN induced sxs versus metabolic etiology? - Hold on ASA therapy due to recent GI bleed - PT/OT evaluation Continue management of risk factors (e.g. HTN, CKD) Acute on chronic kidney disease - am Cr of 2.13; Cr was 1.2 on 03/30/24 - Hyperkalemic at time of admission but improved in am labs (now 4.9) - Gentle mIVF x1 Aortic Stenosis - Status post mechanical AVR. On Coumadin anticoagulation. INR subtherapeutic at 2.1 Continue Warfarin - Daily PT/INR HTN - BP elevated at time of evaluation Given hyperkalemia at time of admission, will continue to hold ACEi and add Amlodipine 5 mg Continue to monitor Admission and Anticipated Discharge Date Admission Date: April 04, 2024 Supervising Physician Co-Signing Physician Notes ATTESTATION I also saw the patient and confirmed regalado portions of the history and exam. I agree with the impression and plan in the resident documentation, and as summarized below. When I saw the patient mid morning, she was sleeping but awakens to voice. Alert to her name; she tells me that she is in the hospital, but also answers the same when I ask her where she lived prior to coming to the hospital. She complains of pain "all over" but denies headache. EXAM 120/73, 86, 17, 94% room air No facial droop appreciated. Left hand assistant producer decreased compared to right; she will not raise left arm, but able to hold in place once raised by me. Plantar/dorsi flexion symmetrical DATA Labs HgB - 8.8 Sodium 137, Potassium 4.9, BUN 49, Cr 2.13 LDL 101, HDL 37 Imaging Brain MRI from today 1. No acute intracranial abnormality. No acute or subacute infarct. 2. Involutional changes with moderate to extensive chronic microvascular ischemic disease IMPRESSION & PLAN Metabolic Encephalopathy Question TIA with mechanical valve HTN, acute on chronic elevation Anemia with history of recent GIB Gentle IVF and monitor renal function Continue warfarin; hold ASA Add amlodipine and monitor BP Will need PT/OT reassessment Additional per resident documentation Subjective Evaluated at bedside; awake and alert but oriented to person and knows she is in the hospital, but when asked the city she kept repeating "hospital". Also kept repeating her date of when asked about the date. Nursing states she has been confused and does not follow commands. Physical Exam Physical Exam: General: awake and alert, oriented to person, afebrile, NAD Skin: warm, dry, intact, no rashes or lesions Heart: +S1/S2, regular, no m/r/g Lungs: equal air entry bilaterally, no rales/rhonchi/wheezes Abd: soft, ND,NT Ext: warm, 2+ pulses in UE/LE bilaterally, no clubbing/cyanosis or edema Neuro: Confused, unable to follow commands, NIMA, not able to lift UE or LE but does hold them up when examiner lifts them, no facial droop noted Results & Data Results & Data Vital Signs (Past 12 Hours) Vital Signs Temp Pulse Pulse Resp BP BP Pulse Ox 04/04/24 11:23 37 C 68 17 172/84 H 96 04/04/24 10:22 63 04/04/24 10:11 04/04/24 09:45 171/90 H 04/04/24 08:48 36.4 C L 70 17 197/115 H 93 04/04/24 08:04 66 15 156/85 H 100 04/04/24 07:18 62 04/04/24 07:09 60 15 184/78 H 99 04/04/24 06:00 53 L 16 124/49 L 100 04/04/24 05:30 53 L 16 124/57 L 99 04/04/24 05:03 53 L 16 126/78 99 04/04/24 04:31 55 L 15 134/75 97 04/04/24 04:01 53 L 16 128/60 96 04/04/24 03:47 04/04/24 03:47 04/04/24 03:33 58 L 16 156/81 H 96 04/04/24 03:00 54 L 14 144/68 H 100 04/04/24 02:15 55 L 14 100 04/04/24 02:10 55 L 04/04/24 01:33 54 L 15 120/55 L 100 04/04/24 01:00 56 L 17 160/78 H 100 O2 Del Method O2 Flow Rate 04/04/24 11:23 Room Air 04/04/24 10:22 04/04/24 10:11 Room Air 04/04/24 09:45 04/04/24 08:48 Room Air 04/04/24 08:04 Room Air 04/04/24 07:18 04/04/24 07:09 Room Air 04/04/24 06:00 Oxymask 4 04/04/24 05:30 Oxymask 4 04/04/24 05:03 Oxymask 4 04/04/24 04:31 Oxymask 4 04/04/24 04:01 Oxymask 4 04/04/24 03:47 Oxymask 4 04/04/24 03:47 Oxymask 4 04/04/24 03:33 Oxymask 4 04/04/24 03:00 Oxymask 4 04/04/24 02:15 Oxymask 5 04/04/24 02:10 04/04/24 01:33 Oxymask 4 04/04/24 01:00 Oxymask 5 Resident Activity Tracking Resident Involvement: Resident Care Provided Care Provided: Adult Hospital Medicine
[2024-04-04 12:23] LABS: Thyroid Stimulating Hormone 1.987 uIu/ml (0.300-4.500)
[2024-04-04] MEDS: SODIUM CHLORIDE 0.9% 1,000 ML IV SCH (12:43)
[2024-04-04] MEDS: amLODIPine BESYLATE 5 MG TAB PO SCH (12:43)
--- NOTE | 2024-04-04 12:44 | Magnetic Resonance Report ---
MR brain wo con HISTORY: 83 years-old Female worsening AMS acutely altered mental status COMPARISON: Head CT 04/03/2024, brain MRI 03/28/2024 TECHNIQUE: Planar multisequence MRI of the brain was obtained without IV contrast FINDINGS: Study is mildly motion degraded. There is no restricted diffusion to suggest acute or subacute infarc t. Partially empty sella. Small chronic infarct noted within the inferior left cerebellum. Midline st ructures are unremarkable. Degenerative changes of the cervical spine. No acute intracranial hemorrhage, midline shift, acute extra-axial collection, hydrocephalus or intra -axial mass. Cerebral venous sinuses and major arterial flow voids appear patent. The skull, orbits a nd soft tissues are unremarkable. Right-sided lens repair. Trace mastoid effusions. Involutional lovelace ges with moderate to extensive and confluent T2/FLAIR hyperintense foci throughout the white matter a gain noted. IMPRESSION: 1. No acute intracranial abnormality. No acute or subacute infarct. 2. Involutional changes with moderate to extensive chronic microvascular ischemic disease. ACT 112: Negative or not required by law. The above report was generated using voice recognition software. It may contain grammatical, syntax o r spelling errors. Electronically signed by: Ildefonso Gamez M.D. 04/04/2024 12:43 PM
[2024-04-04 12:46] LABS: Estimated Average Glucose 100 mg/dl; Hemoglobin A1C 5.1 % (4.5-5.6)
--- NOTE | 2024-04-04 15:45 | Electrocardiogram Report ---
Test Reason : Blood Pressure : */* mmHG Vent. Rate : 64 BPM Atrial Rate : 64 BPM P-R Int : 198 ms QRS Dur : 150 ms QT Int : 434 ms P-R-T Axes : 89 49 54 degrees QTcB Int : 447 ms Normal sinus rhythm Right bundle branch block Abnormal ECG When compared with ECG of 18-Mar-2024 18:10, [place] interval has decreased Confirmed by Malcolm Freire ([id number]) on 04/04/2024 3:45:36 PM Referred By: [facility] Confirmed By: Malcolm Freire
[2024-04-04] MEDS: WARFARIN SOD 5 MG TAB PO SCH (16:42)
[2024-04-04] MEDS: ACETAMINOPHEN 1,000 MG/100 ML VIAL IV ONE (16:44)
[2024-04-04] MEDS ORDERED: ACETAMINOPHEN 1,000 MG/100 ML VIAL IV SCH (19:00)
[2024-04-04] MEDS: LIDOCAINE 5% 1 PATCH TD SCH (20:23)
[2024-04-04] MEDS: ACETAMINOPHEN 1,000 MG/100 ML VIAL IV SCH (22:51)
--- NOTE | 2024-04-04 23:49 | CT Scan Report ---
Exam(s): CT CHEST Without Contrast EXAM: CT Chest Without Intravenous Contrast CLINICAL HISTORY: Reason for exam: hypoxia; encephalopathy. TECHNIQUE: Axial computed tomography images of the chest without intravenous contrast. CTDI is 25.02 mGy and DLP is 745.37 mGy-cm. Automated exposure control was utilized for the study. A dose lowering technique was utilized adhering to the principles of ALARA. COMPARISON: No relevant prior studies available. FINDINGS: Lungs: Subsegmental atelectasis at both lung bases. No consolidation or mass. Mild septal thickening suggesting pulmonary interstitial edema. Pleural space: Unremarkable. No pleural effusion or pneumothorax. Heart: Previous sternotomy and aortic valve replacement. Cardiomegaly and coronary artery atherosclerosis. No pericardial effusion. Bones/joints: Advanced degenerative changes of both shoulders. Disc degeneration in the thoracic spine. No acute fracture. No dislocation. Soft tissues: Unremarkable. Vasculature: Thoracic aortic atherosclerosis without aneurysm. Enlarged main pulmonary artery suggesting pulmonary arterial hypertension. Lymph nodes: Unremarkable. No enlarged lymph nodes. Kidneys and ureters: Simple bilateral renal cysts; no follow-up indicated. IMPRESSION: 1. Mild septal thickening suggesting pulmonary interstitial edema. 2. Enlarged main pulmonary artery suggesting pulmonary arterial hypertension. 3. Cardiomegaly. Coronary artery atherosclerosis. Electronically signed by: Vinayak Ball M.D. 04/04/24 23:48 PM
--- NOTE | 2024-04-05 06:58 | Hospitalist Progress Note ---
Date of Service April 05, 2024 Assessment & Plan (1) Encephalopathy acute: (2) Aortic stenosis: (3) HTN (hypertension) with goal to be determined: Plan 83-year-old female presenting from [facility] with acute metabolic encephalopathy. Patient possibly with several days of confusion, unresponsive episode today prior to arrival. Encephalopathy versus CVA, acute - Patient initially hypoxic on arrival with saturations of 84%. Questionable aspiration event prior to arrival. Head CT and CTA w/o evidence of acute stroke - Neck CTA showing extensive irregular carotid bulb calcified plaque with a likely hemodynamically significant stenosis of approximately 75%. - Brain MRI age-appropriate atrophy and w/o evidence of acute or subacute infarct; no acute intracranial hemorrhage - DDx of TIA versus HTN induced sxs versus metabolic etiology? - Hold on ASA therapy due to recent GI bleed - PT/OT evaluation; pending Continue management of risk factors (e.g. HTN, CKD) Acute on chronic kidney disease stage 3 - baseline Cr appears to be 1.2-1.3 or so - Cr on admission 2.24, improved today after IVF yesterday to 1.47 - suspect this us prerenal due to poor po intake/dehydration Neck pain - most likely MSK in nature based on exam - will trial po magnesium daily + tylenol Aortic Stenosis - Status post mechanical AVR. On Coumadin anticoagulation Continue Warfarin - Daily PT/INR - given subtherapeutic levels will increase her from 5mg daily warfarin to 6mg daily - per family, she had previously been on 5 mg with 10 mg every other day for awhile as she was subtherapeutic but was suppose to then go back to 5 mg daily again HTN Given hyperkalemia at time of admission, will continue to hold ACEi and instead use Amlodipine 5 mg Continue to monitor Admission and Anticipated Discharge Date Admission Date: April 04, 2024 Supervising Physician Co-Signing Physician Notes ATTESTATION I also saw the patient and confirmed regalado portions of the history and exam. I agree with the impression and plan in the resident documentation, and as summarized below. This morning, she is much more awake and conversational as compared to yesterday. She admits that she does not recall talking to me yesterday. She does remember being at [facility] but not coming to the hospital. She complains of neck pain today. EXAM 139/79. 81. 18. 99% Speech is clear. She is alert and oriented to place, was unsure of year. Neck without midline tenderness; No lymphadenopathy appreciated. Pain with cervical rotation, left rotation more than right rotation. CV regular with noted mechanical valve. Lungs clear. DATA Labs HgB - 8.0 INR = 2.1 Sodium 142, Potassium 4.8, BUN 38, Cr 1.47 LDL 101, HDL 37 Imaging Brain MRI from yesterday 1. No acute intracranial abnormality. No acute or subacute infarct. 2. Involutional changes with moderate to extensive chronic microvascular ischemic disease CT chest from yesterday 1. Mild septal thickening suggesting pulmonary interstitial edema. 2. Enlarged main pulmonary artery suggesting pulmonary arterial hypertension. 3. Cardiomegaly. Coronary artery atherosclerosis. IMPRESSION & PLAN Metabolic Encephalopathy, improving Question TIA with mechanical valve GERSON HTN, acute on chronic elevation, improved today Anemia with history of recent GIB Overall, improved compared to yesterday, both clinical and by lab indicators Hold IVF and monitor renal function; Lasix remains on hold, monitor volume status Adjust warfarin for goal 2.5-3.5, although would prefer lower end of that range given recent GI bleed and anemia Continue amlodipine which was added yesterday and monitor BP Will need PT/OT reassessment Additional per resident documentation Subjective Today, pt seen at bedside this morning and this afternoon. She is alert to self and place (can say we are in a hospital in [place]) but not alert to time (states it is 1984) and event. She does admit that she feels like she is getting confused and feels she is just not acting her normal self. In the morning, denies pain anywhere but in the afternoon notes neck muscle spasms and pain that later resolve on repeat exam. She states otherwise she is feeling fine. No chest pain or SOB. No nausea or vomiting. No abdominal pain. Review of Systems Review of Systems: Per HPI. Physical Exam Physical Exam: General:Alert, oriented to self and place, no acute distress, pleasant HEENT: Normocephalic, moist oral mucosa, Cardio: Regular rate and rhythm, Resp:Lungs clear to auscultation b/l, no wheezes or rhonchi, GI: Soft and nontender, nondistended, bowel sounds active Skin: Warm, pink, dry, skin of torso, back, arms, and legs clear of obvious rashes or wounds, pt declined me removing her socks to look at her feet MSK: Cervical paraspinal and SCM muscle hypertonicity noted with occasional spasm Results & Data Results & Data Vital Signs (Past 12 Hours) Vital Signs Temp Pulse Pulse Pulse Resp BP Pulse Ox 04/05/24 02:55 36.8 C 71 18 136/79 98 04/05/24 00:53 04/04/24 22:21 36.8 C 103 H 18 191/94 H 99 04/04/24 22:15 86 04/04/24 20:02 37.1 C 83 18 109/62 99 O2 Del Method 04/05/24 02:55 Room Air 04/05/24 00:53 Room Air 04/04/24 22:21 Room Air 04/04/24 22:15 04/04/24 20:02 Room Air Resident Activity Tracking Resident Involvement: Resident Care Provided Care Provided: Adult Hospital Medicine
[2024-04-05 07:57] LABS: Hematocrit (blood only) 25.6 % (37.0-47.0); Mean Corpuscular Hemoglobin 33.3 pg (25.0-34.0); Mean Corpuscular Hgb Conc 31.3 g/dL (32.0-36.0); Mean Corpuscular Volume 106.7 fL (80.0-100.0); Mean Platelet Volume 9.2 fL (9.4-12.4); Platelet Count 317 K/uL (130-400); RDW Coefficient of Variation 18.2 % (11.5-14.5); RDW Standard Deviation 71.7 fL (36.4-46.3); White Blood Count 7.21 K/ul (4.8-10.8)
[2024-04-05 08:22] LABS: BUN Creatinine Ratio 25.9 (10-20); Calcium 8.8 mg/dl (8.6-10.3); Creatinine Clr Calc Pharmacy 29.1 ml/min; Potassium 4.8 mmol/L (3.5-5.1)
[2024-04-05 08:34] LABS: INR 2.1 (0.9-1.1); Prothrombin Time 21.8 Seconds (9.0-12.0)
[2024-04-05] MEDS: MAGNESIUM OXIDE 400 MG TAB PO SCH (12:55)
[2024-04-05] MEDS: WARFARIN SOD 6 MG TAB PO SCH (16:32)
[2024-04-06 07:26] LABS: Basophils # (auto) 0.05 K/uL (0.00-0.20); Basophils % (auto) 0.6 %; Eosinophils # (auto) 0.21 K/uL (0.00-0.50); Eosinophils % (auto) 2.6 %; Hematocrit (blood only) 25.5 % (37.0-47.0); Hemoglobin 7.9 g/dl (12.0-16.0); Immature Granulocytes # (auto) 0.05 K/uL (0.01-0.20); Immature Granulocytes % (auto) 0.6 %; Lymphocytes # (auto) 0.74 K/uL (1.20-3.40); Lymphocytes % (auto) 9.2 %; Mean Corpuscular Hemoglobin 32.5 pg (25.0-34.0); Mean Corpuscular Volume 104.9 fL (80.0-100.0); Monocytes # (auto) 0.36 K/uL (0.11-0.59); Monocytes % (auto) 4.5 %; Neutrophils # (auto) 6.65 K/uL (1.40-6.50); Neutrophils % (auto) 82.5 %; Platelet Count 354 K/uL (130-400); RDW Coefficient of Variation 18.2 % (11.5-14.5); RDW Standard Deviation 70.5 fL (36.4-46.3); Red Blood Count 2.43 M/uL (4.20-5.40); White Blood Count 8.06 K/ul (4.8-10.8)
[2024-04-06 07:57] LABS: Prothrombin Time 29.3 Seconds (9.0-12.0)
--- NOTE | 2024-04-06 08:14 | Hospitalist Progress Note ---
Date of Service April 06, 2024 Assessment & Plan (1) Encephalopathy acute: (2) Aortic stenosis: (3) HTN (hypertension) with goal to be determined: Plan 83-year-old female presenting from [facility] with acute metabolic encephalopathy. Patient possibly with several days of confusion, unresponsive episode today prior to arrival. Encephalopathy versus CVA, acute - Patient initially hypoxic on arrival with saturations of 84%. Questionable aspiration event prior to arrival. Head CT and CTA w/o evidence of acute stroke - Neck CTA showing extensive irregular carotid bulb calcified plaque with a likely hemodynamically significant stenosis of approximately 75%. - Brain MRI age-appropriate atrophy and w/o evidence of acute or subacute infarct; no acute intracranial hemorrhage - DDx of TIA versus HTN induced sxs versus metabolic etiology? - Hold on ASA therapy due to recent GI bleed - PT/OT evaluation; pending Continue management of risk factors (e.g. HTN, CKD) Acute on chronic kidney disease stage 3 - baseline Cr appears to be 1.2-1.3 or so - Cr on admission 2.24, improved today 1.24 - suspect this was prerenal due to poor po intake/dehydration Neck pain - most likely MSK in nature based on exam - will trial po magnesium daily + tylenol + topical meds + heat - will do xray of cervical spine and R shoulder given continued acutely tender pain, but given CTA neck not showing any fracture/acute abnormality on admission my suspicion is low Aortic Stenosis - Status post mechanical AVR. On Coumadin anticoagulation Continue Warfarin - Daily PT/INR - per family, she had previously been on 5 mg with 10 mg every other day for awhile as she was subtherapeutic but was suppose to then go back to 5 mg daily again - given subtherapeutic levels increased her from 5mg daily warfarin to 6mg daily, now INR is 3 so will do 5 mg and 6 mg alternating days HTN Given hyperkalemia at time of admission, will continue to hold ACEi and instead use Amlodipine 5 mg - will restart home metoprolol today as BPs have been a bit higher than permissible Continue to monitor Admission and Anticipated Discharge Date Admission Date: April 04, 2024 Supervising Physician Co-Signing Physician Notes ATTESTATION I also saw the patient and confirmed regalado portions of the history and exam. I agree with the impression and plan in the resident documentation, and as summarized below. This morning, she is again awake and conversational as compared to presentation. She is reading in her phone. Again complains of neck pain - seems more right sided. EXAM 186/91, 92, 18, 98% Speech is clear. She is alert and oriented. Neck without midline tenderness; No lymphadenopathy appreciated. Pain with cervical rotation, left rotation more than right rotation. Tenderness left SCM area. CV regular with noted mechanical valve. Lungs clear. DATA Labs HgB - 7.9 INR = 3.0 BUN 31, Cr 1.42 IMPRESSION & PLAN Metabolic Encephalopathy, improving if not completely resolved Question TIA with mechanical valve GERSON HTN, acute on chronic elevation, improved today Anemia with history of recent GIB Overall, continues to improve Amlodipine restarted yesterday, resume Toprol today Likely resume Lasix and lisinopril tomorrow INR therapeutic today, alternating 5mg/6mg Could consider adding statin for stroke prevention given microvascular disease on MRI; will need to review records to see if history of intolerance PT/OT reassessment Additional per resident documentation Subjective Pt seen at bedside today. She states she is feeling okay today in general but her neck still hurts quite a bit. Family noted yesterday that patient's neck pain started [place] day or so and has been ongoing since on and off. Pt denies headache today. No chest pain or SOB. No nausea or vomiting. She is alert to person and place but not time and states she does not recall anything that happened in the days/week prior to coming back here. Review of Systems Review of Systems: Per HPI. Physical Exam Physical Exam: General:Alert, oriented to self and place, no acute distress, pleasant HEENT: Normocephalic, moist oral mucosa, Cardio: Regular rate and rhythm, Resp:Lungs clear to auscultation b/l, no wheezes or rhonchi, GI: Soft and nontender, nondistended, bowel sounds active Skin: Warm, pink, dry, MSK: Cervical paraspinal and SCM muscle hypertonicity noted with occasional spasm, primarily on the R side Results & Data Results & Data Vital Signs (Past 12 Hours) Vital Signs Temp Pulse Pulse Resp BP Pulse Ox O2 Del Method 04/06/24 07:46 37.0 C 84 20 185/84 H 99 Room Air 04/06/24 02:45 36.8 C 88 18 186/109 H 100 Room Air 04/05/24 23:34 Room Air 04/05/24 22:16 36.8 C 90 18 171/90 H 98 Room Air 04/05/24 22:08 91 H Resident Activity Tracking Resident Involvement: Resident Care Provided Care Provided: Adult Hospital Medicine
[2024-04-06 08:22] LABS: Creatinine Clr Calc Pharmacy 34.3 ml/min; Potassium 4.6 mmol/L (3.5-5.1)
[2024-04-06 08:31] LABS: Polychromasia 1+; Rouleaux 1+
[2024-04-06] MEDS: DICLOFENAC SOD 1% GEL 100 GM TUBE EXT SCH (08:40)
--- NOTE | 2024-04-06 12:51 | XRay Report ---
XR cervical spine 2 or 3V CLINICAL HISTORY: Neck pain/spasms TECHNIQUE: 3 images of the cervical spine were obtained. COMPARISON: Comparison is made to CTA neck 04/03/2024 FINDINGS: No fractures or subluxations are identified. Degenerative changes are noted in the cervical spine. Th e alignment is anatomic. Prevertebral soft tissues are within normal limits. IMPRESSION: Degenerative changes without evidence of acute abnormality. ACT 112: Negative or not required by law. Electronically signed by: Isiah Goyal M.D. 04/06/2024 12:50 PM
[2024-04-06] MEDS: METOPROLOL SUCC 25MG EXT REL TAB PO SCH (13:00)
--- NOTE | 2024-04-06 13:02 | XRay Report ---
XR shoulder RT min 2V routine CLINICAL HISTORY: R shoulder pain TECHNIQUE: 3 views of the right shoulder were obtained. Comparison: None available at the time of this dictation. FINDINGS: There is no evidence of an acute fracture. Degenerative changes are seen in the glenohumeral joint. T he overlying soft tissues are unremarkable. The visualized portions of the lungs are clear. IMPRESSION: Severe osteoarthritic changes without evidence of acute fracture. ACT 112: Negative or not required by law. Electronically signed by: Isiah Goyal M.D. 04/06/2024 1:00 PM
[2024-04-06] MEDS: WARFARIN SOD 5 MG TAB PO SCH (17:10)
[2024-04-06] MEDS: PANTOprazole 40 MG TAB PO SCH (17:10)
[2024-04-06] MEDS: MELATONIN 3 MG TAB PO PRN (21:31)
[2024-04-07] MEDS: LATANOPROST 0.005% OP SOLN 2.5 ML BTL OPB SCH (00:27)
[2024-04-07] MEDS: BRIMONIDINE TARTRATE 0.2% 5ML OPB SCH (00:27)
[2024-04-07 07:18] LABS: Basophils # (auto) 0.05 K/uL (0.00-0.20); Basophils % (auto) 0.7 %; Eosinophils # (auto) 0.23 K/uL (0.00-0.50); Eosinophils % (auto) 3.4 %; Hematocrit (blood only) 27.2 % (37.0-47.0); Hemoglobin 8.4 g/dl (12.0-16.0); Immature Granulocytes # (auto) 0.04 K/uL (0.01-0.20); Immature Granulocytes % (auto) 0.6 %; Lymphocytes # (auto) 0.79 K/uL (1.20-3.40); Lymphocytes % (auto) 11.8 %; Mean Corpuscular Hemoglobin 33.1 pg (25.0-34.0); Mean Corpuscular Hgb Conc 30.9 g/dL (32.0-36.0); Mean Corpuscular Volume 107.1 fL (80.0-100.0); Mean Platelet Volume 9.2 fL (9.4-12.4); Monocytes # (auto) 0.37 K/uL (0.11-0.59); Monocytes % (auto) 5.5 %; Neutrophils # (auto) 5.23 K/uL (1.40-6.50); Platelet Count 390 K/uL (130-400); RDW Coefficient of Variation 18.2 % (11.5-14.5); RDW Standard Deviation 71.9 fL (36.4-46.3); Red Blood Count 2.54 M/uL (4.20-5.40); White Blood Count 6.71 K/ul (4.8-10.8)
[2024-04-07 07:27] LABS: Calcium 9.2 mg/dl (8.6-10.3); Potassium 4.3 mmol/L (3.5-5.1)
[2024-04-07 07:31] LABS: INR 4.1 (0.9-1.1); Prothrombin Time 39.7 Seconds (9.0-12.0)
[2024-04-07 07:33] LABS: BUN Creatinine Ratio 19.8 (10-20); Creatinine Clr Calc Pharmacy 34.3 ml/min
[2024-04-07] MEDS: lisinopril 10 MG TAB PO SCH (10:12)
--- NOTE | 2024-04-07 10:37 | Hospitalist Progress Note ---
Date of Service April 07, 2024 Assessment & Plan (1) Encephalopathy acute: (2) Aortic stenosis: (3) HTN (hypertension) with goal to be determined: Plan 83-year-old female presenting from [facility] with acute metabolic encephalopathy. Patient possibly with several days of confusion, unresponsive episode today prior to arrival. Encephalopathy versus CVA, acute - Patient initially hypoxic on arrival with saturations of 84%. Questionable aspiration event prior to arrival. Head CT and CTA w/o evidence of acute stroke - Neck CTA showing extensive irregular carotid bulb calcified plaque with a likely hemodynamically significant stenosis of approximately 75%. - Brain MRI age-appropriate atrophy and w/o evidence of acute or subacute infarct; no acute intracranial hemorrhage - DDx of TIA versus HTN induced sxs versus metabolic etiology? - Hold on ASA therapy due to recent GI bleed - PT/OT evaluation; Inpatient Rehab Continue management of risk factors (e.g. HTN, CKD) Chronic kidney disease stage 3 - baseline Cr appears to be 1.2-1.3 - GERSON: Cr on admission 2.24, improved today 1.24 - suspect this was prerenal due to poor po intake/dehydration Neck pain - most likely MSK in nature based on exam - will trial po magnesium daily + tylenol + topical meds + heat - will do xray of cervical spine and R shoulder given continued acutely tender pain, but given CTA neck not showing any fracture/acute abnormality on admission my suspicion is low Aortic Stenosis - Status post mechanical AVR. On Coumadin anticoagulation Continue Warfarin - Daily PT/INR - per family, she had previously been on 5 mg with 10 mg every other day for awhile as she was subtherapeutic but was suppose to then go back to 5 mg daily again - given subtherapeutic levels increased her from 5mg daily warfarin to 6mg daily, now INR is 3 so will do 5 mg and 6 mg alternating days HTN Given hyperkalemia at time of admission, will continue to hold ACEi and instead use Amlodipine 5 mg - will restart home metoprolol today as BPs have been a bit higher than permissible Continue to monitor FEN: H/H Code status: DNR/DNI DVT ppx: Warfarin Held home meds: Furosemide PT/OT: Inpatient Rehab Dispo: [facility] / telemetry Admission and Anticipated Discharge Date Admission Date: April 04, 2024 Subjective Seen this morning. Oriented to person, place and situation. Refers neck pain. Refers feeling headaches and visual idsturbances. BP this morning elevated at 191/104 Denied any chest pain, palpitations, SOB or any other symptoms Review of Systems Review of Systems: as per HPI Physical Exam Constitutional: WD/WN, vitals as above well developed; no acute distress ENMT: external ear and nose normal, oropharynx normal Respiratory: normal respiratory effort, lungs clear to auscultation Cardiovascular: RRR, no murmur, no edema Gastrointestinal (Abdomen): normal bowel sounds, soft, nontender, no he patosplenomegaly Skin: no rashes, warm and dry Results & Data Results & Data Vital Signs (Past 12 Hours) Vital Signs Temp Pulse Pulse Resp BP Pulse Ox O2 Del Method 04/07/24 10:30 Room Air 04/07/24 09:05 177/104 H 04/07/24 08:59 191/96 H 04/07/24 07:50 36.9 C 72 18 162/87 H 100 Room Air 04/07/24 07:00 71 04/07/24 04:00 36.8 C 76 18 180/91 H 97 Room Air 04/07/24 01:03 Room Air 04/06/24 23:00 36.6 C 78 18 177/83 H 97 Room Air Resident Activity Tracking Resident Involvement: Resident Care Provided Care Provided: Adult Hospital Medicine
[2024-04-07 11:19] VITALS: BP 145/78; PULSE 64; RESP 16; TEMP 98.8; O2SAT 98
--- NOTE | 2024-04-07 13:04 | Discharge Summary ---
Date of Service April 07, 2024 Admission HPI Per Admitting Provider Aleida Ty is An 83-year-old female with history of hypertension, CKD, status post mechanical aortic valve on Coumadin anticoagulation presenting from her facility after being found unresponsive. Patient was last seen well around 1930 prior to dinner but EMS reports that her symptoms may have started yesterday as confusion was documented by the physician at her facility. Patient thought to have a left-sided facial droop and right- sided weakness. She became unresponsive with food in her mouth, uncertain of any aspiration event patient unable to provide history during encounter. History obtained through discussion with ER staff as well as chart review Principal Diagnosis AMS, Discharge Exam Constitutional WD/WN, vitals as above Eyes PERRL, conjunctivae normal, anicteric sclerae Respiratory normal respiratory effort, lungs clear to auscultation Cardiovascular RRR, no murmur, no edema Gastrointestinal (Abdomen) normal bowel sounds, soft, nontender, no hepatosplenomegaly Skin no rashes, warm and dry Discharge Data Allergies Allergy/AdvReac Type Severity Reaction Status Date / Time No Known Allergies Allergy Verified 03/27/24 08:32 Consultations 04/04/24 00:42 ED Decision to Admit Stat Ordered Studies 04/03/24 22:22 CT angio head w con Stat CT angio neck with con Stat CT head/brain wo con Stat 04/04/24 09:43 MRI Brain [MR brain wo con] Urgent 04/04/24 18:20 CT chest diagnostic wo con Routine Hospital Course (1) Encephalopathy acute: (2) Aortic stenosis: (3) HTN (hypertension) with goal to be determined: Plan 83-year-old female presenting from [facility] with acute metabolic encephalopathy. Patient possibly with several days of confusion, unresponsive episode today prior to arrival. Encephalopathy versus CVA, acute - Patient initially hypoxic on arrival with saturations of 84%. Questionable aspiration event prior to arrival. Head CT and CTA w/o evidence of acute stroke - Neck CTA showing extensive irregular carotid bulb calcified plaque with a likely hemodynamically significant stenosis of approximately 75%. - Brain MRI age-appropriate atrophy and w/o evidence of acute or subacute infarct; no acute intracranial hemorrhage - DDx of TIA versus HTN induced sxs versus metabolic etiology? - Hold on ASA therapy due to recent GI bleed - PT/OT evaluation; Inpatient Rehab Continue management of risk factors (e.g. HTN, CKD) Chronic kidney disease stage 3 - baseline Cr appears to be 1.2-1.3 - GERSON: Cr on admission 2.24, improved today 1.24 - suspect this was prerenal due to poor po intake - BMP in 3 days. continue po hydration and intake Neck pain - most likely MSK in nature based on exam - will trial po magnesium daily + tylenol + topical meds + heat - will do xray of cervical spine and R shoulder given continued acutely tender pain, but given CTA neck not showing any fracture/acute abnormality on admission my suspicion is low - Topical voltertan - XRAY: severe osteoarthritis, degenerative changes without evidence of acute abnormality Aortic Stenosis - Status post mechanical AVR. On Coumadin anticoagulation Continue Warfarin - Daily PT/INR - per family, she had previously been on 5 mg with 10 mg every other day for awhile as she was subtherapeutic but was suppose to then go back to 5 mg daily again - given subtherapeutic levels increased her from 5mg daily warfarin to 6mg daily, now INR is 3 so will do 5 mg and 6 mg alternating days Repeat INR tomorrow am HTN Given hyperkalemia at time of admission, ACEi and furosemide was hold. - will restart home metoprolol today as BPs have been a bit higher than permissible - Amlodipine increased t0 5mg mg daily added daily during hospitalization. Will continue home BP meds: Lasix and Lisinopril restarted. - Continue to monitor FEN: H/H Code status: DNR/DNI DVT ppx: Warfarin Held home meds: Furosemide PT/OT: Inpatient Rehab Dispo: MEd Surge / telemetry Total Time Total Time Spent Total Time Spent (In Minutes): see attending documentation Discharge Plan Discharge Items Patient Disposition: Transfer Inpatient Rehab Fac Reason For Visit: AMS Discharge Diagnosis: AMS, GERSON Activity: Per Instructions section Non-emergency contact: Primary Care Provider Call non-emergency contact if: you have any medication questions Follow-up/Referrals: Song Pritchard CRNP [Primary Care Provider] - Diet: Heart Healthy Addtl Attending Provider Instructions: 83-year-old female presenting from [facility] with acute metabolic encephalopathy. Patient possibly with several days of confusion, unresponsive episode today prior to arrival. Encephalopathy versus CVA, acute - Patient initially hypoxic on arrival with saturations of 84%. Questionable aspiration event prior to arrival. Head CT and CTA w/o evidence of acute stroke - Neck CTA showing extensive irregular carotid bulb calcified plaque with a likely hemodynamically significant stenosis of approximately 75%. - Brain MRI age-appropriate atrophy and w/o evidence of acute or subacute infarct; no acute intracranial hemorrhage - DDx of TIA versus HTN induced sxs versus metabolic etiology? - Hold on ASA therapy due to recent GI bleed - PT/OT evaluation; Inpatient Rehab Continue management of risk factors (e.g. HTN, CKD) Chronic kidney disease stage 3 - baseline Cr appears to be 1.2-1.3 - GERSON: Cr on admission 2.24, improved today 1.24 - suspect this was prerenal due to poor po intake/dehydration Neck pain - most likely MSK in nature based on exam - will trial po magnesium daily + tylenol + topical meds + heat - will do xray of cervical spine and R shoulder given continued acutely tender pain, but given CTA neck not showing any fracture/acute abnormality on admission my suspicion is low - Topical voltertan - XRAY: severe osteoarthritis, degenerative changes without evidence of acute abnormality Aortic Stenosis - Status post mechanical AVR. On Coumadin anticoagulation Continue Warfarin - Daily PT/INR - per family, she had previously been on 5 mg with 10 mg every other day for awhile as she was subtherapeutic but was suppose to then go back to 5 mg daily again - given subtherapeutic levels increased her from 5mg daily warfarin to 6mg daily, now INR is 3 so will do 5 mg and 6 mg alternating days Repeat INR tomorrow am HTN Given hyperkalemia at time of admission, ACEi and furosemide was hold. - will restart home metoprolol today as BPs have been a bit higher than permissible - Amlodipine increased t0 5mg mg daily added daily during hospitalization. Will continue home BP meds: Lasix and Lisinopril restarted. - Continue to monitor FEN: H/H Code status: DNR/DNI DVT ppx: Warfarin Held home meds: Furosemide PT/OT: Inpatient Rehab Dispo: MEd Surge / telemetry Pending Studies at Discharge: No Stand-Alone Forms: My [facility] Skilled Items Patient informed of condition?: Yes DNR: Yes Discharge Level of Care: Skilled Communicable Disease: No Discharge Prognosis: Stable Lines: None Urinary Catheter: No Medications and DC Order Prescriptions: Continued lisinopril 10 mg tablet 10 mg PO DAILY Qty: 90 3RF diclofenac sodium [Arthritis Pain (diclofenac)] 1 % gel 2 g topical QID PRN (Reason: Pain) Rx Instructions: Unable to verify OTC meds at this date/time. Apply to single elbow, wrist or hand; for hand includes palm/fingers/back of hand warfarin 5 mg tablet See Rx Instructions .ROUTE .COMPLEX Rx Instructions: Per pharmacy, directions are 5mg on Sun/Tues/Thurs and 10mg all other days. Unable to verify if pt still taking medication this way. furosemide 20 mg tablet 20 mg PO DAILY Qty: 90 3RF (DME) Shower Chair Misc See Rx Instructions .Route Qty: 1 0RF Rx Instructions: As directed, bench that extends from outside to inside of tub latanoprost 0.005 % Drops 1 drp OPB PM Rx Instructions: both eyes metoprolol succinate 25 mg tablet extended release 24 hr 12.5 mg PO QAM dorzolamide 2 % drops 0 drp OPB BID Rx Instructions: Last filled 01/05/24 x50 day supply. Original Directions: 1 drop into both eyes twice daily brimonidine 0.2 % drops 0 drp OPB TID Rx Instructions: Last filled 02/14/24 x16 day supply. Original Directions: 1 drop into both eyes TID tramadol 50 mg tablet 50 mg PO TID PRN (Reason: pain) Qty: 0 0RF amlodipine 2.5 mg tablet 2.5 mg PO QAM gabapentin 100 mg capsule 0 mg PO HS Rx Instructions: Unable to verify at this date/time. Original Directions: 200mg by mouth at bedtime. gabapentin 100 mg capsule 0 mg PO DAILY@0700,1300 Rx Instructions: Unable to verify at this date/time. Original Directions: 100mg by mouth twice daily Discharge Orders: Discharge Order (Routine); Ordered 04/07/24 Ordered By: Artur Ayala Admission Data Admit Date/Time: 04/04/24 01:24 Attending Provider: Armond Antoine Admit Provider: Rolanda Pedraza Primary Care Provider: Song Pritchard Other Providers: Rolanda Pedraza Supervising Physician Co-Signing Physician Notes ATTESTATION I personally examined the patient and verified all regalado points of history and exam, discussed case, and agree with decision making with Dr Raj Ayala still weak, right side of neck hurts. He is coherent/cognizant and willing to go to rehab. EXAM Vitals noted, in general she is awake and alert pleasant no distress. HEENT normocephalic atraumatic mucous membranes moist. Breathing unlabored no accessory muscle use good effort. Right-sided cervical paraspinals and sternocleidomastoid tendergentle direct myofascial attempted with mild improvement in tissue texture, patient tolerated well. No focal neurodeficits. IMPRESSION & PLAN Metabolic Encephalopathy, improving if not completely resolved Doubt TIA, I wonder about tramadol side effect versus less likely hypertensive versus less likely other with mechanical valve GERSON on CKD stage III now improved HTN, acute on chronic elevation, continue to follow Anemia with history of recent GIB stable for rehab. Voltaren gel to right side of neck. PT and OT eval and treat at rehab. Continue to follow blood pressure. Will try to refrain from tramadol unless truly necessary and supervised when taking. Additional per resident documentation Resident Activity Tracking Resident Involvement: Resident Care Provided Care Provided: Adult Hospital Medicine
--- NOTE | 2024-04-07 17:42 | Billing Data ---
Date of Service April 07, 2024 Coding Level of Care Code 60536 IN/OBS DISCH 30 MIN/LESS
== END 2024-04-07 14:02 | DRG 71 ==
LOC: ED 22:11 → EDINP 04-04 01:24 → SUATTDRO 04-04 01:24 → 2N 04-04 03:24

== ENCOUNTER 2024-04-23 02:39 | Inpatient (IN) ==
--- NOTE | 2024-04-23 02:58 | Emergency Department Note ---
Impression & Plan Acute dehydration, Acute GI bleeding, Nausea vomiting and diarrhea, Acute UTI admit to the [facility] ED Provider Note NAME: CASTILLO CHAMORRO AGE: 83 SEX: Female INFORMANT: Patient ED PROVIDER(S): Karyn Fernando DO CHIEF COMPLAINT: vomiting and diarrhea PLAN: Disposition: admit to the [facility] MEDICAL DECISION MAKING: this is an 83-year-old female patient who presents to the emergency department with vomiting and diarrhea. Symptoms started yesterday. There is some concern that her stool may be dark in color. Obtaining history from the patient is slightly difficult. She does have a wristband on and it seems she may have been recently discharged from a rehab facility. heme testing of the stool was positive. On physical exam, the patient appears extremely dehydrated with very poor skin turgor. Laboratory studies reveal a BUN of 88 and creatinine of 1.77 which is much higher than most recent laboratory studies. White blood cell, 13.7. Hemoglobin of 8.7 which is baseline for the patient. Platelet count 424. Glucose was normal. Patient was bolused with IV normal saline solution and given a dose of IV Zofran for severe nausea. Patient stools were dark in color and heme tested positive. Urinalysis was obtained and appears to be infected. [facility] care and will prescribe IV antibiotics for the patient's urine. Care/management discussed with: EMS who transported the patient here Triage Nursing notes: reviewed and agree with them. Vital Signs: reviewed and remarkable for tachycardia Additional History obtained from: EMS Previous records reviewed: I reviewed the patient's most recent inpatient hospitalization from March. Differential Diagnosis: dehydration, viral gastroenteritis, GI bleed, UTI, electrolyte abnormality, hypoglycemia Diagnostics, independently interpreted by me: Cardiac Monitoring: sinus tachycardia at 105 HPI: 83 year old Female arrives for evaluation of nausea, vomiting and diarrhea. patient developed symptoms yesterday. She does admit that she was recently discharged from a rehab facility. She describes significant generalized weakness. PAST MEDICAL HISTORY: See Below, PAST SURGICAL HISTORY: See Below, SOCIAL HISTORY: See Below, HOME MEDICATIONS: See list ALLERGIES: none VITALS: See Below PHYSICAL EXAMINATION: HEENT: Head - normocephalic and atraumatic Pupils are equal, round, and reactive to light. Extraocular eye muscles are intact, and sclera are anicteric. Nose - moist nasal mucosa without discharge. Mouth - moist buccal mucosa. Oropharynx is nonerythematous and there is no tonsillar exudate or edema noted. Neck: Supple; no nuchal rigidity or cervical lymphadenopathy Heart: tachycardic rate and regular rhythm. There is a normal S1 and S2 with no murmurs, clicks, or gallops appreciated. Lungs: Clear to auscultation bilaterally with no wheezes, rales, or rhonchi. Abdomen: Soft, completely nontender, nondistended, with good bowel sounds. There are no palpable pulsatile masses or hepatosplenomegaly. There is no guarding, rigidity, or rebound noted. Extremities: No evidence of cyanosis, clubbing, or edema. There are easily palpable peripheral pulses. Skin: warm and Extremely dry with poor turgor and no rashes. emergency department course: The patient was evaluated in room B-6. A complete history and physical was performed. An order was placed for continuous cardiac monitoring. The patient was in a sinus tachycardia at a rate of 105. IV lock was initiated and labs were drawn as above. The patient was bolused with IV normal saline solution and given a dose of IV Zofran. stools were heme tested and were positive. Case was discussed with the [facility] Hospitalist and they will evaluate for further inpatient care. Past Med/Surg History Problem List (Updated 04/23/24 @ 05:09 by Julisa Ayala PA-C) Leukocytosis Anemia Hypertension UTI (urinary tract infection) Cerebral microvascular disease (Acute) Acute confusion (Acute) Acute hyperkalemia (Acute) GERSON (acute kidney injury) (Acute) Encephalopathy acute (Acute) Vision changes Acute blood loss anemia Aortic stenosis Symptomatic anemia Chest tightness Hydronephrosis of right kidney Macrocytic anemia GI bleed (Acute) Diverticulitis (Acute) Chronic back pain Glaucoma CKD (chronic kidney disease) stage 3, GFR 30-59 ml/min HTN (hypertension) with goal to be determined On warfarin therapy Medical History Current every day smoker On warfarin therapy Hypertension Surgical History H/O mechanical aortic valve replacement Family History Brother Hypertension Heart disease Sister Hypertension Heart disease Mother Hypertension Heart disease Myocardial infarction Father Hypertension Heart disease Denies family history of Ovarian cancer Prostate cancer Breast cancer Lung cancer Colorectal cancer Stroke Social History Smoking Status: Current every day smoker Tobacco Type: Cigarettes Age Started Using Tobacco: 38; packs per day: 0.50; Cigarettes Per Day: 1/2 pack; Second Hand Exposure: No; Do You Dip or Chew Tobacco: No; Hx Alcohol Use: No Hx Substance Use: No Preferred Language: Citizen Of [place] Communication Ability: Effective Visual Impairment: Limited Hearing Ability: Normal 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 Beliefs That Will Affect Care: None marital status: / Current Living Situation: Rehab Current Living Situation Comment: [facility] current occupational status: retired How many Children do You have: 4 Feels Safe at Home: Yes Childhood Exposure to Second-Hand Smoke: Yes Diet: low salt caffeine: Yes Dental Care, Regularly: No Physical Activity Frequency: Does not Exercise Seatbelt Use: always Sunscreen Use: No Assistive Devices: Walker Allergies Allergies Allergy/AdvReac Type Severity Reaction Status Date / Time No Known Allergies Allergy Verified 03/27/24 08:32 Home Meds Home Medications Medication Instructions Recorded Confirmed latanoprost 0.005 % eye drops 1 drp OPB PM 07/31/23 04/04/24 warfarin 5 mg tablet See Rx Instructions .Route .COMPLEX 08/20/23 04/04/24 diclofenac sodium 1 % topical gel 2 g topical QID PRN Pain 02/05/24 04/04/24 (Arthritis Pain (diclofenac)) brimonidine 0.2 % eye drops 0 drp OPB TID 03/18/24 04/04/24 dorzolamide 2 % eye drops 0 drp OPB BID 03/18/24 04/04/24 metoprolol succinate 25 mg 12.5 mg PO QAM 03/18/24 04/04/24 tablet,extended release 24 hr amlodipine 2.5 mg tablet 2.5 mg PO QAM 04/04/24 04/04/24 gabapentin 100 mg capsule 0 mg PO DAILY@0700,1300 04/04/24 04/04/24 gabapentin 100 mg capsule 0 mg PO HS 04/04/24 04/04/24 Previous Rx's Medication Instructions Recorded furosemide 20 mg tablet 20 mg PO DAILY #90 tabs 08/20/23 lisinopril 10 mg tablet 10 mg PO DAILY #90 tabs 10/30/23 Shower Chair #1 ea 11/20/23 tramadol 50 mg tablet 50 mg PO TID PRN pain #0 tabs 03/30/24 Results & Data (ED) Vital Signs Vital Signs - 24 hr 04/23/24 02:43 04/23/24 02:57 04/23/24 02:59 Temperature 37.1 C Temperature Source Oral Pulse Rate 105 H 103 H Pulse Rate [Apical] 105 H Pulse Rhythm Regular Regular Pulse Rhythm [Apical] Regular Pulse Strength Normal Pulse Strength [Apical] Normal Respiratory Rate 18 18 18 Respiratory Effort / Characteristics Non-Labored Non-Labored Respiratory Depth Normal Normal Respiratory Pattern Regular Regular Blood Pressure 124/89 Blood Pressure [Right Arm] 124/89 Blood Pressure Mean 100 Blood Pressure Mean [Right Arm] 100 Blood Pressure Position Lying Blood Pressure Position [Right Arm] Lying Pulse Oximetry 100 100 100 Oxygen Delivery Method Room Air Room Air Room Air Sepsis Recent Fever Within 48 Hours No Sepsis New/Unexplained Change in Mental Status No Sepsis Action Taken by Nursing No Action Required 04/23/24 03:09 04/23/24 04:51 Temperature Temperature Source Pulse Rate 110 H Pulse Rate [Apical] 94 H Pulse Rhythm Pulse Rhythm [Apical] Regular Pulse Strength Pulse Strength [Apical] Normal Respiratory Rate 18 Respiratory Effort / Characteristics Non-Labored Respiratory Depth Normal Respiratory Pattern Regular Blood Pressure Blood Pressure [Right Arm] 133/102 H Blood Pressure Mean Blood Pressure Mean [Right Arm] 112 Blood Pressure Position Blood Pressure Position [Right Arm] Lying Pulse Oximetry 98 Oxygen Delivery Method Room Air Sepsis Recent Fever Within 48 Hours Sepsis New/Unexplained Change in Mental Status Sepsis Action Taken by Nursing Laboratory Data 04/23/24 03:09 04/23/24 03:09 Lab Results 04/23/24 04/23/24 Range/Units 03:09 04:10 WBC 13.76 H (4.8-10.8) K/ul RBC 2.72 L (4.20-5.40) M/uL Hgb 8.7 L (12.0-16.0) g/dl Hct 28.9 L (37.0-47.0) % MCV 106.3 H (80.0-100.0) fL MCH 32.0 (25.0-34.0) pg MCHC 30.1 L (32.0-36.0) g/dL RDW Std Deviation 77.9 H (36.4-46.3) fL RDW Coeff of Xavier 19.9 H (11.5-14.5) % Plt Count 424 H (130-400) K/uL MPV 9.2 L (9.4-12.4) fL Immature Gran % (Auto) 0.7 % Neut % (Auto) 83.8 % Lymph % (Auto) 10.8 % [place] % (Auto) 4.2 % Eos % (Auto) 0.2 % Baso % (Auto) 0.3 % Neut # (Auto) 11.54 H (1.40-6.50) K/uL Lymph # (Auto) 1.48 (1.20-3.40) K/uL [place] # (Auto) 0.58 (0.11-0.59) K/uL Eos # (Auto) 0.03 (0.00-0.50) K/uL Baso # (Auto) 0.04 (0.00-0.20) K/uL Immature Gran # (Auto) 0.09 (0.01-0.20) K/uL PT 34.6 H (9.0-12.0) Seconds INR 3.6 H (0.9-1.1) Sodium 144 (136-145) mmol/L Potassium 5.0 (3.5-5.1) mmol/L Chloride 111 H (98-107) mmol/L Carbon Dioxide 21 (21-32) mmol/L Anion Gap 12 H (3-11) BUN 83 H (6-23) mg/dl Creatinine 1.77 H (0.6-1.2) mg/dl Est Cr Clr Drug Dosing 24.6 ml/min eGFR 27.82 BUN/Creatinine Ratio 46.9 H (10-20) Glucose 148 H (70-99(Fasting)) mg/dl Calcium 9.7 (8.6-10.3) mg/dl Total Bilirubin 0.5 (0.2-1.0) mg/dl AST 17 (13-39) U/L ALT 15 (7-52) U/L Alkaline Phosphatase 114 H (34-104) U/L Total Protein 8.1 (6.0-8.3) gm/dl Albumin 4.1 (3.4-5.0) gm/dl Globulin 4.0 (2.5-4.0) gm/dl Albumin/Globulin Ratio 1.0 (0.9-2) Urine Color Yellow Urine Appearance Turbid A (Clear) Urine pH 6.5 (4.5-7.5) Ur Specific [place] 1.015 (1.000-1.030) Urine Protein 1+ H (Negative) Urine Glucose (UA) Negative (Negative) Urine Ketones Negative (Negative) Urine Blood 1+ H (Negative) Urine Nitrite Negative (Negative) Urine Bilirubin Negative (Negative) Urine Urobilinogen Negative (Negative) Ur Leukocyte Esterase 3+ H (Negative) Urine WBC (Auto) >50 H (0-5) /hpf Urine RBC (Auto) 3-5 H (0-2) /hpf U Hyaline Cast (Auto) 11-20 H (0-2) /lpf U Epithel Cells (Auto) 0-2 (0-2) /hpf Urine Bacteria (Auto) 4+ H (None Seen) Administered Medications Discontinued Medications Sodium Chloride (Nss) 1,000 mls @ 999 mls/hr IV .Q1H1M ONE Stop: 04/23/24 03:55 Last Admin: 04/23/24 03:18 Dose: 999 mls/hr Documented By: MODESTA Ondansetron HCl (Ondansetron Inj 2 Mg/Ml 2 Ml Vial) 4 mg IV NOW STA Stop: 04/23/24 02:56 Last Admin: 04/23/24 03:18 Dose: 4 mg Documented By: MODESTA Discharge Plan Visit Data Chief Complaint: GI Assessment Stated Complaint: GI SYMPTOMS ED Provider: Karyn Fernando Discharge Problem: Acute dehydration, Acute GI bleeding, Nausea vomiting and diarrhea, Acute UTI Forms Stand Alone Forms: My [employer] Prescriptions Prescriptions: No Action lisinopril 10 mg tablet 10 mg PO DAILY Qty: 90 3RF diclofenac sodium [Arthritis Pain (diclofenac)] 1 % gel 2 g topical QID PRN (Reason: Pain) Rx Instructions: Unable to verify OTC meds at this date/time. Apply to single elbow, wrist or hand; for hand includes palm/fingers/back of hand warfarin 5 mg tablet See Rx Instructions .ROUTE .COMPLEX Rx Instructions: Per pharmacy, directions are 5mg on Sun/Tues/Thurs and 10mg all other days. Unable to verify if pt still taking medication this way. furosemide 20 mg tablet 20 mg PO DAILY Qty: 90 3RF (DME) Shower Chair Misc See Rx Instructions .Route Qty: 1 0RF Rx Instructions: As directed, bench that extends from outside to inside of tub latanoprost 0.005 % Drops 1 drp OPB PM Rx Instructions: both eyes metoprolol succinate 25 mg tablet extended release 24 hr 12.5 mg PO QAM dorzolamide 2 % drops 0 drp OPB BID Rx Instructions: Last filled 01/05/24 x50 day supply. Original Directions: 1 drop into both eyes twice daily brimonidine 0.2 % drops 0 drp OPB TID Rx Instructions: Last filled 02/14/24 x16 day supply. Original Directions: 1 drop into both eyes TID tramadol 50 mg tablet 50 mg PO TID PRN (Reason: pain) Qty: 0 0RF amlodipine 2.5 mg tablet 2.5 mg PO QAM gabapentin 100 mg capsule 0 mg PO HS Rx Instructions: Unable to verify at this date/time. Original Directions: 200mg by mouth at bedtime. gabapentin 100 mg capsule 0 mg PO DAILY@0700,1300 Rx Instructions: Unable to verify at this date/time. Original Directions: 100mg by mouth twice daily Referrals Referrals: Song Pritchard CRNP [Primary Care Provider] -
[2024-04-23] MEDS: ONDANSETRON INJ 2 MG/ML 2 ML VIAL IV STA (03:18)
[2024-04-23] MEDS: SODIUM CHLORIDE 0.9% 1,000 ML IV ONE (03:18)
[2024-04-23 03:39] LABS: Basophils # (auto) 0.04 K/uL (0.00-0.20); Basophils % (auto) 0.3 %; Eosinophils # (auto) 0.03 K/uL (0.00-0.50); Eosinophils % (auto) 0.2 %; Hematocrit (blood only) 28.9 % (37.0-47.0); Hemoglobin 8.7 g/dl (12.0-16.0); Immature Granulocytes # (auto) 0.09 K/uL (0.01-0.20); Immature Granulocytes % (auto) 0.7 %; Lymphocytes # (auto) 1.48 K/uL (1.20-3.40); Lymphocytes % (auto) 10.8 %; Mean Corpuscular Hgb Conc 30.1 g/dL (32.0-36.0); Mean Corpuscular Volume 106.3 fL (80.0-100.0); Mean Platelet Volume 9.2 fL (9.4-12.4); Monocytes # (auto) 0.58 K/uL (0.11-0.59); Monocytes % (auto) 4.2 %; Neutrophils # (auto) 11.54 K/uL (1.40-6.50); Neutrophils % (auto) 83.8 %; Platelet Count 424 K/uL (130-400); RDW Coefficient of Variation 19.9 % (11.5-14.5); RDW Standard Deviation 77.9 fL (36.4-46.3); Red Blood Count 2.72 M/uL (4.20-5.40); White Blood Count 13.76 K/ul (4.8-10.8)
[2024-04-23 03:48] LABS: Albumin Level 4.1 gm/dl (3.4-5.0); BUN Creatinine Ratio 46.9 (10-20); Bilirubin,Total 0.5 mg/dl (0.2-1.0); Calcium 9.7 mg/dl (8.6-10.3); Creatinine Clr Calc Pharmacy 24.6 ml/min; Total Protein 8.1 gm/dl (6.0-8.3)
[2024-04-23 04:27] LABS: INR 3.6 (0.9-1.1); Prothrombin Time 34.6 Seconds (9.0-12.0)
[2024-04-23 04:37] LABS: Appearance Urine Turbid (Clear); Bacteria Urine Automated 4+ (None Seen); Bilirubin Urine Negative (Negative); Blood Urine 1+ (Negative); Color Urine Yellow; Epithelial Cell Urine Auto 0-2 /hpf (0-2); Glucose Urine UA Negative (Negative); Ketones Urine Negative (Negative); Leukocyte Esterase Urine 3+ (Negative); Nitrite Urine Negative (Negative); Protein Urine 1+ (Negative); Specific Gravity Urine 1.015 (1.000-1.030); Urobilinogen Urine Negative (Negative); WBC Urine Automated >50 /hpf (0-5); pH Urine 6.5 (4.5-7.5)
--- NOTE | 2024-04-23 04:37 | History & Physical Report ---
Date of Service April 23, 2024 Assessment & Plan (1) GI bleed: (2) Anemia: (3) UTI (urinary tract infection): (4) Acute diarrhea: (5) Leukocytosis: (6) CKD (chronic kidney disease) stage 3, GFR 30-59 ml/min: (7) Hypertension: Plan Patient is an 83-year-old female with past medical history of hypertension, CKD, s/p mechanical aortic valve on Coumadin, frequent hospitalizations. She was discharged discharged 04/07 due to acute encephalopathy for CVA. She was at [facility] until April 18 in which she returned home alone. She presents today due to vomiting and diarrhea that began multiple days ago, she reported an episode of dark stool the morning of 04/22. She is being admitted for GI bleed and UTI. With frequent hospitalizations and living at home alone, patient may benefit from nursing facility placement. #GI bleed history of GI bleed in early March 2024 - 03/21 EGD nonbleeding duodenal ulcer - 03/27 cratered ulcer with visible vessel, clip placed - 03/11 colonoscopy - no signs of bleeding Hemoccult stool positive BUN elevated 83, although possibly due to acute kidney injury hemoglobin baseline, 8.7 Protonix 40 mg IV twice daily N.p.o.; gentle hydration with NSS ordered x1 bag H&H Q4H hold warfarin consult GI #Anemia chronic, baseline Hgb 8.7, Hct 28.9 Trend H&H as above with GI bleed #UTI UA and peers infectious, 1+ protein, 1+ blood, 3+ leukocyte esterase, >50 WBC, 11-20 hyaline casts, 4+ bacteria no previous cultures on file Urine culture pending Start Rocephin on admission # diarrhea Stool cultures ordered #leukocytosis 2/2 diarrhea versus UTI Trend CBC #CKD baseline Cr 1.2-1.3 GERSON with recent admission 04/07 - improved Cr 1.77 BUN elevated (24 -> 83), +/- prerenal cause with dehydration vs upper GI bleed K+ 5.0; may need to hold lisinopril if remains elevated - anticipate to improve with IVF IV fluids as above #HTN Continue metoprolol, amlodipine, Lasix, and lisinopril Chronic stable diagnoses: aortic stenosis - INR 3.6, holding Warfarin with GI bleed above; need to consider risk/benefit with recent GI bleeds - 2.5 mg Vit K ordered moderate/extensive chronic microvascular ischemic disease - recent hospitalization with acute metabolic encephalopathy, currently alert and oriented x 3 shoulder pain/ OA - continue Voltaren gel prn VTE ppx: SCDs - bleeding risk Diet: NPO Dispo: med surg anticipate patient will need placement at long-term nursing facility, lives at home alone and frequent hospitalizations Admission and Anticipated Discharge Date Admission Date: 04/23/24 History of Present Illness Chief Complaint: GI assessment Primary Care Provider: DARNELL Lemus Patient is an 83-year-old female with past medical history of hypertension, CKD, s/p mechanical aortic valve on Coumadin, frequent hospitalizations. She was discharged discharged 04/07 due to acute encephalopathy for CVA. She was at [facility] until April 18 in which she returned home alone. She presents today due to vomiting and diarrhea that began multiple days ago, she reported an episode of dark stool the morning of 04/22. She is being admitted for potential GI bleed, UTI, and possible metabolic encephalopathy. With frequent hospitalizations and living at home alone, patient may benefit from nursing facility placement. Patient seen at bedside, she stated her symptoms have been going on for few days. She was doing well at home after being discharged from [facility]. She has been unable to eat or drink because things seem to have no flavor and she seems to just throw it up. She has taken Tylenol to help with this. She also endorses sweats, dyspnea, body aches, dizziness, and chest tightness. She stated she had 1 episode of dark diarrhea 1 AM. She lives at home alone and did not have outpatient follow-up after recent hospitalization. She stated she did take her home medications yesterday, will be due for her a.m. medications this morning. She is unsure if she is still on warfarin. She wishes to be DNR/DNI at this time. Allergies Allergy/AdvReac Type Severity Reaction Status Date / Time No Known Allergies Allergy Verified 03/27/24 08:32 Home Medications Medication Instructions Recorded Confirmed Type latanoprost 0.005 % eye drops 1 drp OPB PM 07/31/23 04/23/24 History furosemide 20 mg tablet 20 mg PO DAILY #90 tabs 08/20/23 04/23/24 Rx warfarin 5 mg tablet See Rx Instructions .Route .COMPLEX 08/20/23 04/23/24 History lisinopril 10 mg tablet 10 mg PO DAILY #90 tabs 10/30/23 04/23/24 Rx Shower Chair #1 ea 11/20/23 03/18/24 Rx diclofenac sodium 1 % topical gel 2 g topical QID PRN Pain 02/05/24 04/23/24 History (Arthritis Pain (diclofenac)) brimonidine 0.2 % eye drops 0 drp OPB TID 03/18/24 04/23/24 History dorzolamide 2 % eye drops 0 drp OPB BID 03/18/24 04/23/24 History metoprolol succinate 25 mg 12.5 mg PO QAM 03/18/24 04/23/24 History tablet,extended release 24 hr tramadol 50 mg tablet 50 mg PO TID PRN pain #0 tabs 03/30/24 04/23/24 Rx amlodipine 2.5 mg tablet 5 mg PO QAM 04/04/24 04/23/24 History gabapentin 100 mg capsule 0 mg PO DAILY@0700,1300 04/04/24 04/23/24 History gabapentin 100 mg capsule 0 mg PO HS 04/04/24 04/23/24 History Past Med/Surg History Problem List (Updated 04/23/24 @ 05:11 by Julisa Ayala PA-C) Acute diarrhea Leukocytosis Anemia Hypertension UTI (urinary tract infection) Cerebral microvascular disease (Acute) Acute confusion (Acute) Acute hyperkalemia (Acute) GERSON (acute kidney injury) (Acute) Encephalopathy acute (Acute) Vision changes Acute blood loss anemia Aortic stenosis Symptomatic anemia Chest tightness Hydronephrosis of right kidney Macrocytic anemia GI bleed (Acute) Diverticulitis (Acute) Chronic back pain Glaucoma CKD (chronic kidney disease) stage 3, GFR 30-59 ml/min HTN (hypertension) with goal to be determined On warfarin therapy Medical History (Updated 04/23/24 @ 05:11 by Julisa Ayala PA-C) Current every day smoker On warfarin therapy Surgical History H/O mechanical aortic valve replacement Family History Brother Hypertension Heart disease Sister Hypertension Heart disease Mother Hypertension Heart disease Myocardial infarction Father Hypertension Heart disease Denies family history of Ovarian cancer Prostate cancer Breast cancer Lung cancer Colorectal cancer Stroke Social History Smoking Status: Current every day smoker Tobacco Type: Cigarettes Age Started Using Tobacco: 38; packs per day: 0.50; Cigarettes Per Day: 1/2 pack; Second Hand Exposure: No; Do You Dip or Chew Tobacco: No; Hx Alcohol Use: No Hx Substance Use: No Preferred Language: Australian Communication Ability: Effective Visual Impairment: Limited Hearing Ability: Normal Pulmonary Physical Therapist Required: No Beliefs That Will Affect Care: None marital status: / Current Living Situation: Rehab Current Living Situation Comment: [employer] current occupational status: retired How many Children do You have: 4 Feels Safe at Home: Yes Childhood Exposure to Second-Hand Smoke: Yes Diet: low salt caffeine: Yes Dental Care, Regularly: No Physical Activity Frequency: Does not Exercise Seatbelt Use: always Sunscreen Use: No Assistive Devices: Walker Review of Systems Review of Systems: see HPI Physical Exam Physical Exam: The patient is awake, alert and oriented 3, well developed and well nourished, normocephalic and atraumatic, in no acute distress. Non-toxic appearing. HEENT- EOMI, mucous membranes dry. Hearing grossly intact. Heart-normal S1 and S2. No murmurs, rubs or gallops. Lungs-clear bilaterally, no respiratory distress, no accessory muscle use. Abdomen-normal bowel sounds and soft. No ascites noted. Non-tender. Extremities- no clubbing, cyanosis, or edema. Results & Data Results & Data Vital Signs (Past 12 Hours) Vital Signs Temp Pulse Pulse Resp BP BP Pulse Ox 04/23/24 03:09 110 H 04/23/24 02:59 103 H 18 100 04/23/24 02:57 105 H 18 124/89 100 04/23/24 02:43 37.1 C 105 H 18 124/89 100 O2 Del Method 04/23/24 03:09 04/23/24 02:59 Room Air 04/23/24 02:57 Room Air 04/23/24 02:43 Room Air Laboratory Results Reviewed CBC, CMP, UA Medications Administered ed: 1L NSS, zofran ECG Additional Comments: ordered Code Status & VTE Plan Code Status dnr/DNI VTE Prophylaxis Plan VTE Prophylaxis will be ordered: Yes Supervising Physician Co-Signing Physician Notes Attending addendum: I have physically seen this patient, have supervised the SHYANNE's activities, and agree with the H&P unless as otherwise noted. Assessment and Plan: The patient is an 83-year-old female with CVD, history of acute encephalopathy, history of acute blood loss anemia, aortic stenosis, CKD stage III, hypertension, on chronic warfarin therapy. Recent admissions to [facility] from 03/18-03/30/24, She was treated for diverticulitis/ GI bleed with cipro/flagyl. Her H=b dropped from 13.5 to 9.9, had an INR of 6, which was reversed with IV vitamin K. She had undergone a colonoscopy on 03/21/2024, which primarily showed diverticulosis. She then underwent EGD on 03/21/2024 which showed erythematous duodenopathy, and a nonbleeding duodenal ulcer . Repeat EGD on 03/27/24 was performed due to Hb drop to 7.4, which showed acute gastritis, a duodenal ulcer that was nonbleeding, and a duodenal ulcer with a visible vessel treated with argon laser and clip placement. She was readmitted on 04/04- 04/07/24 for acute encephalopathy, underwent neurologic evaluation that time which was negative, underwent PT/OT evaluation, and was then transferred to [facility] from 04/07/2024-04/18/2024. She reports that upon arrival to home, where she lives alone, she slowly worsened again, and reports vomiting up brown mucus and also passed dark stools. She was unable to make her follow-up appointment in the outpatient setting on 04/21, was able to be contacted by PCP on 04/22, and patient ultimately came to the emergency department this evening due to worsening symptoms of fatigue and generalized malaise. #Recurrent upper GI bleed- NPO Protonix 40 mg IV twice daily H&H every 4 hours Hemoglobin 8.7 on admission, with recent discharge 8.4 Type and screen IV fluids NSS at 80 mL/h x 1 L Underwent colonoscopy on 03/21, and EGD on 03/21 and 03/27, with above results as noted Consult gastroenterology #Mechanical aortic valve- Coumadin was resumed, with an INR of 3.6 now Balance between anticoagulation to prevent stroke, and minimizing potential for bleeding Hemoglobin is actually higher at this point 8.7 compared to 8.4 when discharged. Will give a low-dose of vitamin K 2.5 mg to try to target an INR of 2, to strike a happy medium. #History of acute encephalopathy- Mental status this evening is actually close to normal, other than being very fatigued Acute kidney injury superimposed on CKD- 1.77, with base 1.21. During her first admission creatinine worsened to 2.24 Gentle hydration as noted, and recheck laboratories in the a.m. #Patient will ultimately not be suitable to living by herself upon discharge, and will likely need to have ECF assessment. CODE STATUS: DNR/DNI PG Care Time/CCT Total # of Minutes Spent Total Time Spent with Patient: Total time spent is greater than 50% in coordination of care (as documented) at patient's floor/unit and/or counseling patient: Coding Level of Care Code 15508 INT INP/OBS CARE 3/75MIN Diagnoses Gastrointestinal hemorrhage with melena K92.1 GI bleed type/associated pathology: melena Anemia D64.9 UTI (urinary tract infection) N39.0 Acute diarrhea R19.7 Leukocytosis D72.829 CKD (chronic kidney disease) stage 3, GFR 30-59 ml/min N18.30 Hypertension I10 (1) GI bleed GI bleed type/associated pathology: melena Qualified Code(s): K92.1 - Melena
[2024-04-23 05:42] LABS: Influenza A virus by PCR Negative (Neg); Influenza B virus by PCR Negative (Neg); RSV by PCR Negative (Neg); SARS CoV2 RNA(COVID-19) Ceph NEGATIVE (Negative)
[2024-04-23] MEDS ORDERED: DICLOFENAC SOD 1% GEL 100 GM TUBE EXT PRN (06:41)
[2024-04-23] MEDS ORDERED: ONDANSETRON INJ 2 MG/ML 2 ML VIAL IV PRN (06:41)
--- OUTSIDE RECORDS SUMMARY | 2024-04-23 06:46 | External Medical Summary | Continuity of Care Document ---
Author Name Unknown Organization [facility]T [facility] [address] Address [address] [place], [place] [id number] [id number] Date(s): 04/04/24 - 04/04/24 EXT [facility] [address] [place], [place] [id number] Discharge Disposition: Home or Self Care Attending Physician: MD Dorothy, Jesus Chapin Referring Physician: MD David, Aziza Matthew Patient Care team information Care Team Related Persons Name: AJAY CHAMORRO
[2024-04-23] MEDS: PHYTONADIONE 2.5 MG in DEXTROSE 5% 50 ML IV ONE (07:44)
--- NOTE | 2024-04-23 08:04 | Hospitalist Progress Note ---
Date of Service April 23, 2024 Assessment & Plan (1) GI bleed: (2) Anemia: (3) UTI (urinary tract infection): (4) Acute diarrhea: (5) Leukocytosis: (6) CKD (chronic kidney disease) stage 3, GFR 30-59 ml/min: (7) Hypertension: (8) Hyperkalemia: (9) HTN (hypertension) with goal to be determined: Plan Patient is an 83-year-old female with past medical history of hypertension, CKD, s/p mechanical aortic valve on Coumadin, frequent hospitalizations. She was discharged discharged 04/07 due to acute encephalopathy for CVA. She was at [facility] until April 18 in which she returned home alone. She presents due to vomiting and diarrhea that began multiple days ago, she reported an episode of dark stool the morning of 04/22. She is being admitted for GI bleed and UTI. #GI bleed history of GI bleed in early March 2024 - 03/21 EGD nonbleeding duodenal ulcer - 03/27 cratered ulcer with visible vessel, clip placed - 03/11 colonoscopy - no signs of bleeding Hemoccult stool positive hemoglobin 8.7 ->7.2 Continue Protonix 40 mg IV twice daily Start Pepcid, renal dosing, 10mg daily + Carafate QID Diet resumed, NPO at midnight for AM GI evaluation Volume contracted, continue gentle hydration overnight hold warfarin GI consulted, appreciate recs - EGD deferred at this time #Anemia Hgb 8.7 -> 7.2 -> 7.4 Recheck AM CBC Type and cross, consider blood transfusion for symptomatic anemia #Hyperkalemia: K+ uptrending 5.0 -> 6.0, BMP recheck pending Start Lokelma 10mg TID x 6 doses Hold Lisinopril Consider diuresis if persistent hyperkalemia #UTI UA appears infectious, 1+ protein, 1+ blood, 3+ leukocyte esterase, >50 WBC, 11- 20 hyaline casts, 4+ bacteria Urine culture pending Continue IV Ceftriaxone # diarrhea Stool cultures ordered, pending #leukocytosis 2/2 diarrhea versus UTI vs hemoconcentration Trend CBC #GERSON on CKD baseline Cr 1.2-1.3 Cr 1.77 on admission --> 1.59, suspect prerenal given volume contracted state and response to fluid resuscitation IV fluids as above #HTN Continue metoprolol, amlodipine, Lasix Hold Lisinopril d/t hyperkalemia Chronic stable diagnoses: aortic stenosis - INR 3.6, holding Warfarin with GI bleed above shoulder pain/ OA - Voltaren gel held per GI recommendation VTE ppx: SCDs - bleeding risk Diet: CC, NPO at midnight pending AM GI evaluation Dispo: med surg. following for dispo planning Admission and Anticipated Discharge Date Admission Date: April 23, 2024 Supervising Physician Co-Signing Physician Notes I personally examined the patient and verified all regalado points of history and exam, discussed case, and agree with decision making with Dr Fuller Feeling weak. Somewhat nauseated. No bowel movements. No other acute complaints. Vitals noted, in general she is awake and alert very fatigued no distress. HEENT normocephalic atraumatic mucous membranes moist. Breathing unlabored no accessory muscle use good effort. Skin without rashes pallor or icterus. Neuro without focal deficits. Probable upper GI bleed/mild acute blood loss anemiafortunately hemodynamically stable, no bowel movementssuggesting bleeding is slowing or stopped. Continue acid suppression to allow blood to clot. Continue to follow closely. GERSON with hyperkalemiaprobably related to blood in her GI tract as well as volume loss from GI bleed/diarrhea. IV fluids. Fortunately no significant EKG changes. Lokelma. Follow potassium closely. Manage more aggressively if getting worse. GERSON/hypernatremiaI suspect the hyponatremia is likely asymptomatic and relates to salinepossibly simply the effect of saline directly getting into the tube whenever they were drawing blood, versus truly her equilibrating to the sodium content of the IV fluids. Should her sodium continue to be elevated or go up furtherwill obviously need to change to a fluid with less sodium in itwe are a bit limited in the context of the fluid shortage given that we would like to give her something isotonic to help with the GERSON and hyperkalemia, but probably will need to shift to something with lower sodium content, and I do not believe we have LR availablemay switch to Plasma-Lyte if the sodium continues to climb. PT/OT eval and treat, likely to need some sort of rehab/skilled at discharge. Subjective Patient seen at bedside, lethargic and only minimally responsive to questions. Patient states that she developed vomiting and diarrhea shortly after discharge to home from [facility]. Also notes black, tarry stools. No further vomiting or diarrhea since admission. Reports worsening fatigue. Denies dysuria but endorses urinary frequency over the past few days. Denies fevers/chills. Review of Systems Review of Systems: as per HPI Physical Exam Physical Exam: Constitutional: no acute distress, lethargic HEENT: NCAT, no conjunctival injection CV: extremities well-perfused, no LE edema Resp: no increased work of breathing GI: nondistended MSK: no gross deformities Skin: warm, dry, no rash appreciated Neuro: alert, oriented, no focal neurologic deficit appreciated Results & Data Results & Data Vital Signs (Past 12 Hours) Vital Signs Temp Pulse Pulse Pulse Resp BP BP 04/23/24 07:14 37.0 C 98 H 16 142/94 H 04/23/24 06:49 37.1 C 98 H 16 136/93 04/23/24 06:14 103 H 18 177/104 H 04/23/24 06:00 103 H 18 177/104 H 04/23/24 04:51 94 H 18 133/102 H 04/23/24 03:09 110 H 04/23/24 02:59 103 H 18 04/23/24 02:57 105 H 18 124/89 04/23/24 02:43 37.1 C 105 H 18 124/89 Pulse Ox O2 Del Method 04/23/24 07:14 98 Room Air 04/23/24 06:49 95 Room Air 04/23/24 06:14 96 Room Air 04/23/24 06:00 96 Room Air 04/23/24 04:51 98 Room Air 04/23/24 03:09 04/23/24 02:59 100 Room Air 04/23/24 02:57 100 Room Air 04/23/24 02:43 100 Room Air Resident Activity Tracking Resident Involvement: Resident Care Provided Care Provided: Adult Hospital Medicine (1) GI bleed GI bleed type/associated pathology: melena Qualified Code(s): K92.1 - Melena
[2024-04-23 08:27] LABS: Hematocrit (blood only) 28.7 % (37.0-47.0); Hemoglobin 8.8 g/dl (12.0-16.0)
[2024-04-23] MEDS: BRIMONIDINE TARTRATE 0.2% 5ML OPB SCH (09:27)
[2024-04-23] MEDS: FUROSEMIDE 20 MG TAB PO SCH (09:28)
[2024-04-23] MEDS: lisinopril 10 MG TAB PO SCH (09:28)
[2024-04-23] MEDS: amLODIPine BESYLATE 5 MG TAB PO SCH (09:28)
[2024-04-23] MEDS: METOPROLOL SUCC 25MG EXT REL TAB PO SCH (09:28)
[2024-04-23] MEDS: DORZOLAMIDE HCL 2% OPH SOLN 10 ML BTL OPB SCH (09:29)
[2024-04-23] MEDS: PANTOprazole 40 MG/10 ML SYR IV SCH (09:29)
[2024-04-23] MEDS: cefTRIAXone SODIUM 2,000 MG/50 ML BAG IV SCH (09:34)
[2024-04-23] MEDS: GABAPENTIN 100 MG CAP PO SCH ×2 (09:35→20:38)
[2024-04-23] MEDS: SODIUM CHLORIDE 0.9% 1,000 ML IV SCH (09:35)
--- NOTE | 2024-04-23 10:44 | Gastrointestinal Consultation ---
Date of Consultation April 23, 2024 Assessment & Plan (1) Anemia: (2) Heme + stool: Plan - stop nsaids. will have diclofenac stopped. - continue with protonix 40mg BID. - continue to follow hgb/hct and transfuse as needed. - does not appear to need urgent endoscopy at this time. will continue to monitor. Supervising Physician Co-Signing Physician Notes Agree with notes and assessment as provided by German Howell above. Some markedly high BUN. This may be consistent with prerenal azotemia or blood in the GI tract. May find the hemoglobin drop significantly with rehydration. There is not appear to be annabel or active gastrointestinal bleeding. It is likely her bleeding is from the previous noted duodenal ulceration. Unfortunately diclofenac gel does undergo some systemic absorption may increase the risk of persistent or worsening duodenal ulceration and should be discontinued. Long- term PPI therapy will be recommended. If there is evidence of bleeding with blood from the GI tract repeat endoscopic could be undertaken. However in the absence of blood and following H&H which is probably going to be rehydration that I would transfuse. We will follow with you History of Present Illness Reason for Consultation: GI bleed Requesting Physician: Julisa Ayala PA-C Attending Physician: Armond Antoine DO History of Present Illness Patient is an 83 year old female with a past medical history of hypertension, CKD, mechanical aortic valve on Coumadin, and frequent hospitalizations. She was discharged on 04/07 due to acute encephalopathy for CVA. She was at [facility] until April 18. At that time she returned home alone. She presented to the ED this morning due to vomiting and diarrhea that began multiple days ago. She reported an episode of dark stool the morning of 04/22. 04/23 hgb was 8.7 (previously was 8.4 on 04/07). INR 3.6. Bun 83, Creatinine 1.7. she tells me she feels weak. no nausea, vomiting, abdominal pain. stool was heme positive in ED. As an outpatient, she does no appear to be using a PPI and was using diclofenac sodium. colonoscopy 03/21/24 diverticulosis and dark stool in colon. EGD 03/27/24 2 cm hiatal hernia, gastritis, nonbleeding duodenal ulcers with one ulcer with visible vessel that was treated with APC and clipped. Allergies Allergy/AdvReac Type Severity Reaction Status Date / Time No Known Allergies Allergy Verified 03/27/24 08:32 Home Medications Medication Instructions Recorded Confirmed Type latanoprost 0.005 % eye drops 1 drp OPB PM 07/31/23 04/23/24 History furosemide 20 mg tablet 20 mg PO DAILY #90 tabs 08/20/23 04/23/24 Rx warfarin 5 mg tablet See Rx Instructions .Route .COMPLEX 08/20/23 04/23/24 History lisinopril 10 mg tablet 10 mg PO DAILY #90 tabs 10/30/23 04/23/24 Rx Shower Chair #1 ea 11/20/23 03/18/24 Rx diclofenac sodium 1 % topical gel 2 g topical QID PRN Pain 02/05/24 04/23/24 History (Arthritis Pain (diclofenac)) brimonidine 0.2 % eye drops 0 drp OPB TID 03/18/24 04/23/24 History dorzolamide 2 % eye drops 0 drp OPB BID 03/18/24 04/23/24 History metoprolol succinate 25 mg 12.5 mg PO QAM 03/18/24 04/23/24 History tablet,extended release 24 hr tramadol 50 mg tablet 50 mg PO TID PRN pain #0 tabs 03/30/24 04/23/24 Rx amlodipine 2.5 mg tablet 5 mg PO QAM 04/04/24 04/23/24 History gabapentin 100 mg capsule 0 mg PO DAILY@0700,1300 04/04/24 04/23/24 History gabapentin 100 mg capsule 0 mg PO HS 04/04/24 04/23/24 History Patient History Medical History (Updated 04/23/24 @ 15:36 by Bret Fuller DO) Current every day smoker On warfarin therapy Surgical History H/O mechanical aortic valve replacement Family History Brother Hypertension Heart disease Sister Hypertension Heart disease Mother Hypertension Heart disease Myocardial infarction Father Hypertension Heart disease Denies family history of Ovarian cancer Prostate cancer Breast cancer Lung cancer Colorectal cancer Stroke Social History Smoking Status: Current every day smoker Tobacco Type: Cigarettes Age Started Using Tobacco: 38; packs per day: 0.50; Cigarettes Per Day: 0.5 pack; Second Hand Exposure: No; Do You Dip or Chew Tobacco: No; Hx Alcohol Use: No Hx Substance Use: No Preferred Language: Fijian Communication Ability: Effective Visual Impairment: Limited Hearing Ability: Normal Ortho Nurse Required: No Beliefs That Will Affect Care: None marital status: / Current Living Situation: Alone Current Living Situation Comment: [employer] current occupational status: retired How many Children do You have: 4 Feels Safe at Home: Yes Childhood Exposure to Second-Hand Smoke: Yes Diet: low salt caffeine: Yes Dental Care, Regularly: No Physical Activity Frequency: Does not Exercise Seatbelt Use: always Sunscreen Use: No Assistive Devices: Walker Review of Systems Review of Systems: All systems reviewed & are unremarkable except as noted in HPI & below Physical Exam Constitutional: WD/WN, vitals as above Respiratory: normal respiratory effort, lungs clear to auscultation Cardiovascular: Rate/Rhythm: regular rate and regular rhythm Gastrointestinal (Abdomen): normal bowel sounds, soft, nontender, no hepatosplenomegaly Psychiatric: Orientation: alert and oriented x 3 Results & Data Vital Signs (Past 12 Hours) Vital Signs Temp Pulse Pulse Pulse Resp BP BP 04/23/24 07:14 98.6 F 98 H 16 142/94 H 04/23/24 06:49 98.8 F 98 H 16 136/93 04/23/24 06:14 103 H 18 177/104 H 04/23/24 06:00 103 H 18 177/104 H 04/23/24 04:51 94 H 18 133/102 H 04/23/24 03:09 110 H 04/23/24 02:59 103 H 18 04/23/24 02:57 105 H 18 124/89 04/23/24 02:43 98.8 F 105 H 18 124/89 Pulse Ox O2 Del Method 04/23/24 07:14 98 Room Air 04/23/24 06:49 95 Room Air 04/23/24 06:14 96 Room Air 04/23/24 06:00 96 Room Air 04/23/24 04:51 98 Room Air 04/23/24 03:09 04/23/24 02:59 100 Room Air 04/23/24 02:57 100 Room Air 04/23/24 02:43 100 Room Air Coding Level of Care Code 54314 INT INP/OBS CARE MIN Diagnoses Anemia D64.9 Heme + stool R19.5
[2024-04-23 12:11] LABS: Hematocrit (blood only) 23.5 % (37.0-47.0); Hemoglobin 7.2 g/dl (12.0-16.0)
[2024-04-23 12:19] LABS: Calcium 8.9 mg/dl (8.6-10.3)
[2024-04-23 12:25] LABS: BUN Creatinine Ratio 50.3 (10-20); Creatinine Clr Calc Pharmacy 25.4 ml/min
[2024-04-23] MEDS ORDERED: SODIUM CHLORIDE 0.9% 50 ML IV PRN ×2 (13:43→16:47)
[2024-04-23] MEDS ORDERED: SODIUM CHLORIDE 0.9% 100 ML IV PRN ×2 (13:43→16:47)
[2024-04-23] MEDS: SODIUM ZIRCONIUM CYCLOSILICATE 10 GM PACKET PO SCH (15:34)
[2024-04-23] MEDS: FAMOTIDINE 10 MG TABLET PO SCH (15:35)
[2024-04-23 15:59] LABS: Hematocrit (blood only) 24.8 % (37.0-47.0); Hemoglobin 7.4 g/dl (12.0-16.0)
[2024-04-23] MEDS: SUCRALFATE 1 GM/10 ML UDC PO SCH (16:45)
--- NOTE | 2024-04-23 18:35 | Billing Data ---
Date of Service April 23, 2024 Coding Level of Care Code 86808 SUB INP/OBS CARE 3MIN
[2024-04-23 18:45] LABS: BUN Creatinine Ratio 43.8 (10-20); Calcium 8.7 mg/dl (8.6-10.3); Creatinine Clr Calc Pharmacy 23.9 ml/min; Potassium 4.5 mmol/L (3.5-5.1)
[2024-04-23] MEDS: ACETAMINOPHEN 325 MG TAB PO PRN (21:02)
[2024-04-23] MEDS: MELATONIN 3 MG TAB PO PRN (23:19)
[2024-04-23] MEDS: LATANOPROST 0.005% OP SOLN 2.5 ML BTL OPB SCH (23:19)
[2024-04-23 23:21] LABS: BUN Creatinine Ratio 43.3 (10-20); Calcium 8.5 mg/dl (8.6-10.3); Creatinine Clr Calc Pharmacy 24.6 ml/min
[2024-04-23] MEDS: PLASMA-LYTE A 1,000 ML IV SCH (23:46)
[2024-04-24 03:31] LABS: Calcium 8.3 mg/dl (8.6-10.3); Magnesium 2.5 mg/dl (1.7-2.4); Potassium 4.2 mmol/L (3.5-5.1)
[2024-04-24 03:35] LABS: Hematocrit (blood only) 19.5 % (37.0-47.0); Hemoglobin 5.7 g/dl (12.0-16.0); Mean Corpuscular Hemoglobin 32.4 pg (25.0-34.0); Mean Corpuscular Hgb Conc 29.2 g/dL (32.0-36.0); Mean Corpuscular Volume 110.8 fL (80.0-100.0); Mean Platelet Volume 9.4 fL (9.4-12.4); Platelet Count 318 K/uL (130-400); RDW Coefficient of Variation 20.2 % (11.5-14.5); RDW Standard Deviation 83.4 fL (36.4-46.3); Red Blood Count 1.76 M/uL (4.20-5.40); White Blood Count 11.53 K/ul (4.8-10.8)
[2024-04-24 03:36] LABS: BUN Creatinine Ratio 40.6 (10-20); Creatinine Clr Calc Pharmacy 23.7 ml/min
[2024-04-24 03:36] LABS: Anisocytosis Present; Basophils # (auto) 0.04 K/uL (0.00-0.20); Basophils % (auto) 0.3 %; Eosinophils # (auto) 0.18 K/uL (0.00-0.50); Eosinophils % (auto) 1.6 %; Hypochromasia Present; Immature Granulocytes # (auto) 0.08 K/uL (0.01-0.20); Immature Granulocytes % (auto) 0.7 %; Lymphocytes # (auto) 1.56 K/uL (1.20-3.40); Lymphocytes % (auto) 13.5 %; Macrocytosis Present; Monocytes # (auto) 0.46 K/uL (0.11-0.59); Neutrophils # (auto) 9.21 K/uL (1.40-6.50); Neutrophils % (auto) 79.9 %
[2024-04-24 03:42] LABS: INR 1.5 (0.9-1.1); Prothrombin Time 15.9 Seconds (9.0-12.0)
--- NOTE | 2024-04-24 03:52 | Communication Note ---
Date of Service: April 24, 2024 Contacted by RN who notified Hgb of 5.7 and Hct of 19.5. VS at this time showing BP of 107/59, HR of 96, O2 sat of 97, and normal temp. Patient feeling drowsy but otherwise asymptomatic. Will order transfusion of 2 units of PRBC with re- check in H&H for 2 hours after transfusion is complete. Resident Activity Tracking Resident Involvement: Resident Care Provided Care Provided: Adult Hospital Medicine
[2024-04-24] MEDS ORDERED: SODIUM CHLORIDE 0.9% 50 ML IV PRN (03:53)
[2024-04-24] MEDS ORDERED: SODIUM CHLORIDE 0.9% 100 ML IV PRN (03:53)
--- NOTE | 2024-04-24 07:33 | Electrocardiogram Report ---
Test Reason : Blood Pressure : */* mmHG Vent. Rate : 89 BPM Atrial Rate : 89 BPM P-R Int : 170 ms QRS Dur : 142 ms QT Int : 408 ms P-R-T Axes : 87 42 49 degrees QTcB Int : 496 ms Normal sinus rhythm Right bundle branch block Abnormal ECG When compared with ECG of 03-Apr-2024 22:14, No significant change was found Confirmed by Phi Redman ([id number]) on 04/24/2024 7:33:13 AM Referred By: REFERRED SELF Confirmed By: Phi Redman
--- NOTE | 2024-04-24 08:19 | Hospitalist Progress Note ---
Date of Service April 24, 2024 Assessment & Plan (1) GI bleed: (2) Anemia: (3) UTI (urinary tract infection): (4) Acute diarrhea: (5) Leukocytosis: (6) CKD (chronic kidney disease) stage 3, GFR 30-59 ml/min: (7) Hypertension: (8) Hyperkalemia: (9) HTN (hypertension) with goal to be determined: Plan Patient is an 83-year-old female with past medical history of hypertension, CKD, s/p mechanical aortic valve on Coumadin, frequent hospitalizations. She was discharged discharged 04/07 due to acute encephalopathy for CVA. She was at [facility] until April 18 in which she returned home alone. She presents due to vomiting and diarrhea that began multiple days ago, she reported an episode of dark stool the morning of 04/22. She is being admitted for GI bleed and UTI. #GI bleed history of GI bleed in early March 2024 - 03/21 EGD nonbleeding duodenal ulcer - 03/27 cratered ulcer with visible vessel, clip placed - 03/11 colonoscopy - no signs of bleeding Hemoccult stool positive Overnight Hgb dropped to 5.7 - s/p transfusion of 2 units pRBCs - repeat CBC pending Continue Protonix 40 mg IV twice daily Continue Pepcid, renal dosing, 10mg daily + Carafate QID NPO pending EGD NPO and likely volume down still from diarrhea and blood loss, will continue gentle hydration overnight Hold warfarin GI consulted, appreciate recs - EGD pending #Anemia Overnight Hgb dropped to 5.7 - s/p transfusion of 2 units pRBCs - repeat Hgb 9.8 Repeat AM CBC #Hyperkalemia - Resolved: Overnight serial BMPs with declining potassium. Continue to hold Lisinopril Recheck AM BMP #UTI UA appears infectious, 1+ protein, 1+ blood, 3+ leukocyte esterase, >50 WBC, 11- 20 hyaline casts, 4+ bacteria Urine culture + e. coli - sensitivities to follow Continue IV Ceftriaxone # diarrhea Stool cultures ordered, pending #leukocytosis 2/2 diarrhea versus UTI vs hemoconcentration Trend CBC #GERSON on CKD baseline Cr 1.2-1.3 AM Cr 1.7, still elevated. Continue IV fluids as above #HTN Continue metoprolol, amlodipine, Lasix Hold Lisinopril, restart when potassium stable #Weakness, Deconditioning: PT/OT CM following for dispo planning Chronic stable diagnoses: aortic stenosis - INR 3.6, holding Warfarin with GI bleed above shoulder pain/ OA - Voltaren gel held per GI recommendation VTE ppx: SCDs - bleeding risk Diet: NPO pending EGD Dispo: med surg. CM following for dispo planning Admission and Anticipated Discharge Date Admission Date: April 23, 2024 Supervising Physician Co-Signing Physician Notes I personally examined the patient and verified all regalado points of history and exam, discussed case, and agree with decision making with Dr Fuller continues to feel weakwas very lightheaded this morning, has not tried to get out of bed since transfusion. For EGD later today. Vitals noted, in general she is awake and alert very fatigued no distress. HEENT normocephalic atraumatic mucous membranes moist. Breathing unlabored no accessory muscle use good effort. Skin without rashes pallor or icterus. Neuro without focal deficits. Probable upper GI bleed/ acute blood loss anemia requiring 2 units packed red cell transfusion (hemoglobin in the mid fives, symptomatic with weakness and lightheadedness)fortunately hemodynamically stable, but despite no bowel movements, her hemoglobin dropped further. Continue acid suppression, for EGD later today. GERSON with hyperkalemiaprobably related to blood in her GI tract as well as volume loss from GI bleed/diarrhea. IV fluids. Lokelma. Continue to follow. Likely will be able to DC Lokelma tomorrow if it is clear bleeding has stopped and her potassium stays in a normal range GERSON/hypernatremia hypernatremia improved. GERSON seems relatively mild compared to her recent numbers and likely due to acute blood loss anemia as well as dehydration. PT/OT eval and treat, likely to need some sort of rehab/skilled at discharge. Subjective Patient seen at bedside, only complaint is ongoing fatigue/weakness. Denies SOB, chest pain. Denies fevers/chills. Review of Systems Review of Systems: as per HPI Physical Exam Physical Exam: Constitutional: no acute distress, lethargic HEENT: NCAT, no conjunctival injection CV: extremities well-perfused, no LE edema Resp: no increased work of breathing GI: nondistended MSK: no gross deformities Skin: warm, dry, no rash appreciated Neuro: alert, oriented, no focal neurologic deficit appreciated Results & Data Results & Data Vital Signs (Past 12 Hours) Vital Signs Temp Pulse Pulse Pulse Resp BP BP 04/24/24 07:01 37.0 C 73 16 118/57 L 04/24/24 06:35 36.9 C 77 16 115/59 L 04/24/24 05:30 36.9 C 97 H 75 18 117/71 04/24/24 05:00 36.9 C 75 16 105/76 04/24/24 04:36 37.0 C 71 16 115/71 04/24/24 03:50 37.2 C 76 16 107/59 L Pulse Ox O2 Del Method 04/24/24 07:01 99 Room Air 04/24/24 06:35 99 Room Air 04/24/24 05:30 97 Room Air 04/24/24 05:00 98 Room Air 04/24/24 04:36 99 04/24/24 03:50 97 Room Air Resident Activity Tracking Resident Involvement: Resident Care Provided Care Provided: Adult Hospital Medicine (1) GI bleed GI bleed type/associated pathology: melena Qualified Code(s): K92.1 - Melena
--- NOTE | 2024-04-24 09:46 | History & Physical Bridge Note ---
Date of Service April 24, 2024 History & Physical Bridge Note I have examined the patient, reviewed the History & Physical and in the interval since the performance of the History & Physical I have noted the following changes of clinical significance: Patient's hgb fell today to 5.7 (previously was 7.4). she feels weak. she has not moved her bowels since admission. no nausea, vomiting, abdominal pain, or chest pain. she does feel sob when moving around. currently ordered 2 units of prbc and is recieving the first unit now. - discussed with Dr. Dumont, will plan to proceed with an EGD today to further evaluate. likely blood loss is secondary to her known ulcers.
[2024-04-24] MEDS ORDERED: Nursing to Pharmacy Communication SCH (13:15)
[2024-04-24 15:55] LABS: Hematocrit (blood only) 30.9 % (37.0-47.0); Hemoglobin 9.8 g/dl (12.0-16.0); Mean Corpuscular Hemoglobin 30.5 pg (25.0-34.0); Mean Corpuscular Hgb Conc 31.7 g/dL (32.0-36.0); Mean Corpuscular Volume 96.3 fL (80.0-100.0); Mean Platelet Volume 9.1 fL (9.4-12.4); Platelet Count 280 K/uL (130-400); RDW Coefficient of Variation 23.9 % (11.5-14.5); RDW Standard Deviation 77.3 fL (36.4-46.3); Red Blood Count 3.21 M/uL (4.20-5.40); White Blood Count 11.71 K/ul (4.8-10.8)
--- NOTE | 2024-04-24 16:07 | Anesthesiology Consultation ---
Date of Service April 24, 2024 Assessment & Plan (1) Encounter for pre-operative examination: Chart Review Chart Review: Acceptable Risk for Surgery and Patient NOT seen in Pre Admission Testing Consults Requested none History Surgery Operation Date: 04/24/24 16:45 Proposed Procedures p Esophagogastroduodenoscopy Dr. Tim Dumont MD Height/Weight Height: 5 ft 3 in Weight: 76.657 kg Allergies Allergy/AdvReac Type Severity Reaction Status Date / Time No Known Allergies Allergy Verified 03/27/24 08:32 Medications Home Medications Medication Instructions Recorded Confirmed Last Taken latanoprost 0.005 % eye drops 1 drp OPB PM 07/31/23 04/23/24 04/22/24 furosemide 20 mg tablet 20 mg PO DAILY #90 tabs 08/20/23 04/23/24 04/22/24 warfarin 5 mg tablet See Rx Instructions .Route .COMPLEX 08/20/23 04/23/24 04/22/24 lisinopril 10 mg tablet 10 mg PO DAILY #90 tabs 10/30/23 04/23/24 04/22/24 Shower Chair #1 ea 11/20/23 03/18/24 Unknown diclofenac sodium 1 % topical gel 2 g topical QID PRN Pain 02/05/24 04/23/24 04/22/24 (Arthritis Pain (diclofenac)) brimonidine 0.2 % eye drops 0 drp OPB TID 03/18/24 04/23/24 04/22/24 dorzolamide 2 % eye drops 0 drp OPB BID 03/18/24 04/23/24 04/22/24 metoprolol succinate 25 mg 12.5 mg PO QAM 03/18/24 04/23/24 04/22/24 tablet,extended release 24 hr tramadol 50 mg tablet 50 mg PO TID PRN pain #0 tabs 03/30/24 04/23/24 04/22/24 amlodipine 2.5 mg tablet 5 mg PO QAM 04/04/24 04/23/24 04/22/24 gabapentin 100 mg capsule 0 mg PO DAILY@0700,1300 04/04/24 04/23/24 04/22/24 gabapentin 100 mg capsule 0 mg PO HS 04/04/24 04/23/24 04/22/24 Active Medications Generic Name Dose Route Start Last Admin Trade Name Freq PRN Reason Stop Dose Admin Acetaminophen 650 mg 04/23/24 06:41 04/24/24 05:38 Acetaminophen 325 Mg Tab PO 05/23/24 06:40 650 mg Q4H PRN Administration Pain or Fever Amlodipine Besylate 5 mg 04/23/24 09:00 04/24/24 08:21 Amlodipine Besylate 5 Mg Tab PO 05/23/24 08:59 Not Given QAM MCKENZIE Brimonidine Tartrate 1 drops 04/23/24 09:00 04/24/24 13:55 Brimonidine Tartrate 0.2% 5ml OPB 05/23/24 08:59 1 drops TID MCKENZIE Administration Dorzolamide HCl 1 drops 04/23/24 09:00 04/24/24 10:55 Dorzolamide Hcl 2% Oph Soln 10 Ml Btl OPB 05/23/24 08:59 1 drops BID MCKENZIE Administration Famotidine 10 mg 04/23/24 15:00 04/24/24 08:21 Famotidine 10 Mg Tablet PO 05/23/24 14:59 Not Given DAILY MCKENZIE Furosemide 20 mg 04/23/24 09:00 04/24/24 08:21 Furosemide 20 Mg Tab PO 05/23/24 08:59 Not Given DAILY MCKENZIE Gabapentin 200 mg 04/23/24 21:00 04/23/24 20:38 Gabapentin 100 Mg Cap PO 05/23/24 20:59 200 mg HS MCKENZIE Administration Gabapentin 100 mg 04/23/24 07:00 04/24/24 12:05 Gabapentin 100 Mg Cap PO 05/23/24 06:59 Not Given DAILY@0700,1300 MCKENZIE Ceftriaxone Sodium 2,000 mg in 50 mls @ 100 mls/hr 04/23/24 07:00 04/24/24 12:40 Rocephin IV 04/28/24 06:59 Infused Q24H MCKENZIE Infusion Pantoprazole Sodium 40 mg in 10 mls @ 5 mls/min 04/23/24 09:00 04/24/24 10:55 Protonix IV 05/23/24 08:59 5 mls/min BID MCKENZIE Administration Latanoprost 1 drops 04/23/24 21:00 04/23/24 23:19 Latanoprost 0.005% Op Soln 2.5 Ml Btl OPB 05/23/24 20:59 1 drops PM MCKENZIE Administration Lisinopril 10 mg 04/23/24 09:00 04/23/24 09:28 Lisinopril 10 Mg Tab PO 05/23/24 08:59 10 mg DAILY MCKENZIE Administration Melatonin 6 mg 04/23/24 22:51 04/23/24 23:19 Melatonin 3 Mg Tab PO 05/23/24 22:50 6 mg HS PRN Administration Sleep Metoprolol Succinate 12.5 mg 04/23/24 09:00 04/24/24 08:21 Metoprolol Succ 25mg Ext Rel Tab PO 05/23/24 08:59 Not Given QAM MCKENZIE Miscellaneous 1 each 04/23/24 21:00 04/23/24 20:59 Remove Lidoderm Patch N/A 05/23/24 20:59 Not Given DAILY@2100 MCKENZIE Sodium Zirconium Cyclosilicate 10 gm 04/23/24 14:00 04/24/24 13:00 Sodium Zirconium Cyclosilicate 10 Gm Packet PO 04/25/24 07:01 Not Given TID@0700,1400,1900 MCKENZIE Sucralfate 1 gm 04/23/24 17:00 04/24/24 12:05 Sucralfate 1 Gm/10 Ml Udc PO 05/23/24 16:59 Not Given QID MCKENZIE Past Medical History Medical History Current every day smoker On warfarin therapy Past Family History Family History Brother Hypertension Heart disease Sister Hypertension Heart disease Mother Hypertension Heart disease Myocardial infarction Father Hypertension Heart disease Denies family history of Ovarian cancer Prostate cancer Breast cancer Lung cancer Colorectal cancer Stroke Past Surgical History Surgical History H/O mechanical aortic valve replacement Social History Smoking Status: Current every day smoker Smoking cigarettes per day: 0.5 pack Do You Dip or Chew Tobacco: No Hx Alcohol Use: No Hx Substance Use: No Physical Exam Vital Signs Last Vital Signs Temp 98.8 F 04/24/24 14:15 Pulse 76 04/24/24 14:15 Resp 16 04/24/24 14:15 BP 108/69 04/24/24 14:15 Pulse Ox 96 04/24/24 14:15 O2 Del Method Room Air 04/24/24 14:15 Testing Laboratory Results 04/24/24 15:37 04/24/24 02:52 PT 15.9 Seconds (9.0-12.0) H 04/24/24 02:52 INR 1.5 (0.9-1.1) H 04/24/24 02:52 Urine Color Yellow 04/23/24 04:10 Urine Appearance Turbid (Clear) A 04/23/24 04:10 Urine pH 6.5 (4.5-7.5) 04/23/24 04:10 Ur Specific [place] 1.015 (1.000-1.030) 04/23/24 04:10 Urine Protein 1+ (Negative) H 04/23/24 04:10 Urine Glucose (UA) Negative (Negative) 04/23/24 04:10 Urine Ketones Negative (Negative) 04/23/24 04:10 Urine Nitrite Negative (Negative) 04/23/24 04:10 Ur Leukocyte Esterase 3+ (Negative) H 04/23/24 04:10 Urine WBC (Auto) >50 /hpf (0-5) H 04/23/24 04:10 Urine RBC (Auto) 3-5 /hpf (0-2) H 04/23/24 04:10 U Hyaline Cast (Auto) 11-20 /lpf (0-2) H 04/23/24 04:10 U Epithel Cells (Auto) 0-2 /hpf (0-2) 04/23/24 04:10 Urine Bacteria (Auto) 4+ (None Seen) H 04/23/24 04:10 Blood Type O Positive 04/23/24 17:59 Antibody Screen NEGATIVE 04/23/24 17:59 04/23/24 04:10 Urine Culture - Preliminary Urine,Straight Cath Escherichia coli Electrocardiogram Date: 04/23/24 Findings: + NSR @ and + RBBB Echocardiogram Date: 03/19/24 EF: >70 Other Findings: + atrial enlargement, + RVH and + LVH Valvular Disease: + (mod-sev) and + MS (mod)
--- NOTE | 2024-04-24 17:00 | GI REPORT ---
[facility] Patient: CASTILLO CHAMORRO : 1940 Sex at : Female Age: 83 Years Procedure: Upper GI endoscopy Date: 04/24/2024 Attending Physician: Zackery Dumont MD Referring MD: Referred Self Indications: - Active gastrointestinal bleeding Medications: - Monitored Anesthesia Care Complications: - No immediate complications. Estimated Blood Loss: - Estimated blood loss was minimal. Procedure: - The egd scope was introduced through the mouth and advanced to the second part of the duodenum. - The upper GI endoscopy was accomplished without difficulty. - The patient tolerated the procedure well. Findings: - One mild stenosis was found at the gastroesophageal junction. The stenosis was traversed. - The entire examined stomach was normal. - Many non-bleeding superficial duodenal ulcers with pigmented material were found in the duodenal bulb. Coagulation for bleeding prevention using bipolar probe was successful. - A single small angiodysplastic lesion with bleeding was found in the second portion of the duodenum. Coagulation for hemostasis using bipolar probe was successful. Impression: - Esophageal stenosis. - Normal stomach. - Non-bleeding duodenal ulcers with pigmented material. Treated with bipolar cautery. - A single bleeding angiodysplastic lesion in the duodenum. Treated with bipolar cautery. - No specimens collected. Recommendation: - Avoid diclofenac gel. Long-term PPI therapy Protonix or pantoprazole 40 mg/day Procedure Code(s): - 29387, Esophagogastroduodenoscopy, flexible, transoral; with control of bleeding, any method Diagnosis Code(s): - K92.2, Gastrointestinal hemorrhage, unspecified - K22.2, Esophageal obstruction - K26.9, Duodenal ulcer, unspecified as acute or chronic, without hemorrhage or perforation - K31.811, Angiodysplasia of stomach and duodenum with bleeding CPT(R) - 2023 copyright [employer]. All Rights Reserved. The CPT codes, CCI edits and ICD codes generated are intended as suggestions and were generated based on input data. These codes are preliminary and upon insurance coder review may be revised to meet current compliance and payer requirements. The provider is responsible for the final determination of appropriate codes, and modifiers. Zackery Dumont MD This document has been electronically signed. Note Initiated:04/24/2024 Note Completed:04/24/2024 4:59 PM [id number]
--- NOTE | 2024-04-24 17:02 | Communication Note ---
Date of Service: April 24, 2024 A&P (1) Melena: EGD Multiple superficial duodenal ulcers 1 with a flat pigmented spot coagulated. In the second third part of the duodenum there was actively bleeding oozing AVM. This continued to ooze under direct visualization with lavage. Coagulated with BiCap coagulation with hemostasis. Post coagulation no further bleeding was seen on extensive lavage of the first second and third part of the duodenum Original bleed from duodenal ulcer. Today's bleed at least partially from a duodenal AVM. Potentially has further AVMs beyond the reach of today's endoscope. Flat pigmented spot on one of the superficial ulcers coagulated. Patient should avoid diclofenac going forward. Long-term Protonix 40 mg/day suggested. None
--- NOTE | 2024-04-24 17:09 | Anesthesiology Progress Note ---
Date of Service April 24, 2024 Anesthesia Post Procedure Vital Signs Vital Signs: Temp Pulse Pulse Pulse Pulse Resp BP 04/24/24 16:59 88 19 04/24/24 16:28 98.1 F 86 20 04/24/24 14:15 98.8 F 76 16 04/24/24 12:02 98.4 F 74 16 141/83 H 04/24/24 11:36 98.4 F 74 16 143/66 H 04/24/24 10:35 98.4 F 82 16 130/75 04/24/24 10:06 98.4 F 73 16 129/76 04/24/24 09:36 98.2 F 69 16 126/72 04/24/24 09:21 98.4 F 75 16 127/84 04/24/24 09:09 04/24/24 09:00 98.2 F 76 16 113/66 04/24/24 08:00 98.2 F 72 16 110/66 04/24/24 07:30 98.6 F 68 16 118/72 04/24/24 07:01 98.6 F 73 16 04/24/24 06:35 98.4 F 77 16 04/24/24 05:30 98.4 F 97 H 75 18 04/24/24 05:00 98.4 F 75 16 04/24/24 04:36 98.6 F 71 16 115/71 04/24/24 03:50 99.0 F 76 16 04/23/24 19:39 98.6 F 87 16 04/23/24 17:17 98.2 F 91 H 18 BP Pulse Ox O2 Del Method O2 Flow Rate 04/24/24 16:59 111/56 L 99 Nasal Cannula 3 04/24/24 16:28 143/65 H 100 Room Air 04/24/24 14:15 108/69 96 Room Air 04/24/24 12:02 95 04/24/24 11:36 95 04/24/24 10:35 98 04/24/24 10:06 96 04/24/24 09:36 97 04/24/24 09:21 97 04/24/24 09:09 Room Air 04/24/24 09:00 96 04/24/24 08:00 99 04/24/24 07:30 98 04/24/24 07:01 118/57 L 99 Room Air 04/24/24 06:35 115/59 L 99 Room Air 04/24/24 05:30 117/71 97 Room Air 04/24/24 05:00 105/76 98 Room Air 04/24/24 04:36 99 04/24/24 03:50 107/59 L 97 Room Air 04/23/24 19:39 134/80 97 Room Air 04/23/24 17:17 127/83 93 Room Air Pain Intensity Abdomen: Pain Intensity: 8 Lower Back: Pain Intensity: 3 Transfer of Care Handoff Completed per policy Notes Mental Status: alert / awake / arousable and participated in evaluation Patient Amnestic to Procedure: Yes Nausea / Vomiting: adequately controlled Pain: adequately controlled Airway Patency, RR, SpO2: stable & adequate BP & HR: stable & adequate Hydration State: stable & adequate Anesthetic Complications: no major complications apparent and Pt Satisfied with anesthetic care
--- NOTE | 2024-04-24 17:18 | Billing Data ---
Date of Service April 24, 2024 Coding Level of Care Code 52479 SUB INP/OBS CARE MIN
[2024-04-24] MEDS: LIDOCAINE 2% 2 ML VIAL/AMP(20MG/ML) INFIL ONE ×3 (17:24)
[2024-04-24] MEDS: GLYCOPYRROLATE 0.2 MG/ML VIAL ONE (17:25)
[2024-04-24] MEDS: PROPOFOL IV EMULSION 10 MG/ML 20 ML VIAL IV ONE (17:25)
[2024-04-24] MEDS: PLASMA-LYTE A 1,000 ML IV SCH (17:37)
[2024-04-25 07:41] LABS: Basophils # (auto) 0.04 K/uL (0.00-0.20); Basophils % (auto) 0.4 %; Eosinophils # (auto) 0.26 K/uL (0.00-0.50); Eosinophils % (auto) 2.8 %; Hematocrit (blood only) 32.7 % (37.0-47.0); Hemoglobin 10.4 g/dl (12.0-16.0); Immature Granulocytes # (auto) 0.06 K/uL (0.01-0.20); Immature Granulocytes % (auto) 0.6 %; Lymphocytes # (auto) 0.98 K/uL (1.20-3.40); Lymphocytes % (auto) 10.6 %; Mean Corpuscular Hemoglobin 31.1 pg (25.0-34.0); Mean Corpuscular Hgb Conc 31.8 g/dL (32.0-36.0); Mean Corpuscular Volume 97.9 fL (80.0-100.0); Mean Platelet Volume 9.4 fL (9.4-12.4); Monocytes # (auto) 0.53 K/uL (0.11-0.59); Monocytes % (auto) 5.7 %; Neutrophils % (auto) 79.9 %; Platelet Count 299 K/uL (130-400); RDW Coefficient of Variation 24.3 % (11.5-14.5); RDW Standard Deviation 82.4 fL (36.4-46.3); Red Blood Count 3.34 M/uL (4.20-5.40); White Blood Count 9.27 K/ul (4.8-10.8)
[2024-04-25 07:43] LABS: Calcium 9.2 mg/dl (8.6-10.3); Creatinine Clr Calc Pharmacy 32.3 ml/min; Potassium 4.4 mmol/L (3.5-5.1)
[2024-04-25 08:12] LABS: Macrocytosis Present; Polychromasia 1+
[2024-04-25] MEDS: PANTOprazole 40 MG TAB PO SCH (08:57)
--- NOTE | 2024-04-25 09:59 | Gastroenterology Progress Note ---
Date of Service April 25, 2024 Assessment & Plan (1) Melena: Plan Patient appears more awake today. Hgb improved today. Still some dark stool that is likely residual. - continue to follow hgb/hct. transfuse as needed. - recommended against nsaid use including topical diclofenac cream. - she should be discharged on protonix 40mg bid. Admission and Anticipated Discharge Date Admission Date: April 23, 2024 Supervising Physician Co-Signing Physician Notes Hemoglobin stable. Patient has multiple GI bleeding sources including multiple superficial ulcers in the duodenum likely related to smoking and diclofenac use even though this is topical she uses a fair amount of it. Diclofenac is absorbed systemically. According to her family she does smoke a lot which also increases ulcer risk and inhibits healing. Yesterday there was a bleeding AVM. This probably preexisted though would be difficult to identify in the face of an active bleeding duodenal ulcer. If she has 1 AVM in the duodenum was bleeding she certainly may have other further out in the small bowel including jejunum and ileum. Will observe for further bleeding. Coumadin and all blood thinners will increase the risk of bleeding from small bowel AVMs I would recommend long-term PPI therapy. Best to avoid oral or topical NSAIDs. Stopping smoking if achievable Subjective Patient has more energy today. still passing some dark stool that is likely residual. hgb improved to 10.4 (was 9.8). EGD 04/24 - Esophageal stenosis. - Normal stomach. - Non-bleeding duodenal ulcers with pigmented material. Treated with bipolar cautery. - A single bleeding angiodysplastic lesion in the duodenum. Treated with bipolar cautery. - No specimens collected. Review of Systems Review of Systems: All systems reviewed & are unremarkable except as noted in HPI & below Physical Exam Constitutional: WD/WN, vitals as above Respiratory: normal respiratory effort, lungs clear to auscultation Cardiovascular: Rate/Rhythm: regular rate and regular rhythm Gastrointestinal (Abdomen): normal bowel sounds, soft, nontender, no hepatosplenomegaly Psychiatric: Orientation: alert and oriented x 3 Affect: euthymic affect Results & Data Results & Data Vital Signs (Past 12 Hours) Vital Signs Temp Pulse Resp BP Pulse Ox O2 Del Method 04/25/24 07:11 98.6 F 82 16 122/80 99 Room Air Coding Level of Care Code 38209 SUB INP/OBS CARE 05/03MIN Diagnoses Melena K92.1
[2024-04-25] MEDS: LIDOCAINE 5% 1 PATCH TD PRN (12:03)
--- NOTE | 2024-04-25 12:24 | Hospitalist Progress Note ---
Date of Service April 25, 2024 Assessment & Plan (1) GI bleed: (2) Anemia: (3) UTI (urinary tract infection): (4) Acute diarrhea: (5) Leukocytosis: (6) CKD (chronic kidney disease) stage 3, GFR 30-59 ml/min: (7) Hypertension: (8) Hyperkalemia: (9) HTN (hypertension) with goal to be determined: Plan Patient is an 83-year-old female with past medical history of hypertension, CKD, and s/p mechanical aortic valve on Coumadin. She was discharged 04/07 after being admitted d/t acute encephalopathy. She was at [facility] until April 18 at which time she returned home alone. She presents this admission due to vomiting and diarrhea that began a few days prior to admission (04/23). She also reported an episode of dark stool the morning of 04/22. 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 - continue protonix 40 mg PO twice daily, pepcid 10 mg, and carafate QID - trend CBC; if blurriness persists, may consider ophtho consult/referral Hyperkalemia - resolved - suspect secondary to GI bleed - given lokelma which has since been stopped UTI - UA showing 4+ bacteria, 1+ blood, and 3+ LE; urine culture grew E coli resistant to cipro and levo - switch ceftriaxone to cefdinir 300mg BID (start of ABX 04/23) Leukocytosis- resolved - secondary to prior diarrhea versus UTI vs hemoconcentration GERSON on CKD - baseline Cr 1.2-1.4; peaked at 1.77 - pt now with significant improvement most likely secondary to better perfusion s/p transfusion and cautery HTN - continue metoprolol, amlodipine, and lasix - resume lisinopril since potassium improved Weakness, deconditioning - continue PT/OT Aortic stenosis s/p mechanical valve placement - last INR 1.5, continue holding warfarin today to ensure continued stability of Hgb; however, will need detailed discussion of risks vs. benefits of restarting/stopping Shoulder pain/ OA - voltaren gel held per GI recommendation; may use tylenol PRN VTE ppx: SCDs, ambulation Diet: regular Dispo: med surg. CM following for dispo planning (home PT vs. rehab) Admission and Anticipated Discharge Date Admission Date: April 23, 2024 Supervising Physician Co-Signing Physician Notes I personally examined the patient and verified all regalado points of history and exam, discussed case, and agree with decision making with Dr Arora feels weak and dizzy. R eye blurry but can see. L chronic blindness. Vitals noted, in general she is awake and alert very fatigued no distress. HEENT normocephalic atraumatic mucous membranes moist. right eye EOMI pupil reactive vision subjectively blurry but seems to be intact. Breathing unlabored no accessory muscle use good effort. Skin without rashes pallor or icterus. Neuro without focal deficits. Probable upper GI bleed/ acute blood loss anemia requiring 2 units packed red cell transfusion (hemoglobin in the mid fives, symptomatic with weakness and lig htheadedness)now more stable. continue acid suppression, follow R eye blurriness - nonspecific. no redness, no pupil defect, no EOMI issues. ?due to feeling weak/fatigued - follow GERSON with hyperkalemiaprobably related to blood in her GI tract as well as volume loss from GI bleed/diarrhea. improved GERSON/hypernatremia hypernatremia improved. GERSON improved PT/OT eval and treat, likely to need some sort of rehab/skilled at discharge. Subjective Pt doing about the same as yesterday. She has continued dizziness and blurriness of her right eye. She feels very weak and off balance. She does not feel safe to return home today. Review of Systems Review of Systems: As per HPI Physical Exam Physical Exam: Constitutional: well appearing, no acute distress HEENT: normocephalic, no conjunctival injection CV: regular rhythm, regular rate, mechanical valve heard Respiratory: CTA bilaterally. No rhonchi, wheezes, or crackles. No increased wo rk of breathing MSK: no gross deformities noted Skin: warm, dry, no rashes Neuro: alert, oriented, no FND noted Psych: mood and affect congruent Results & Data Results & Data Vital Signs (Past 12 Hours) Vital Signs Temp Pulse Resp BP Pulse Ox O2 Del Method 04/25/24 08:30 Room Air 04/25/24 07:11 37.0 C 82 16 122/80 99 Room Air Resident Activity Tracking Resident Involvement: Resident Care Provided Care Provided: Adult Hospital Medicine (1) GI bleed GI bleed type/associated pathology: melena Qualified Code(s): K92.1 - Melena
--- NOTE | 2024-04-25 18:14 | Billing Data ---
Date of Service April 25, 2024 Coding Level of Care Code 79173 SUB INP/OBS CARE MIN
[2024-04-26 06:43] LABS: Hematocrit (blood only) 33.5 % (37.0-47.0); Hemoglobin 10.5 g/dl (12.0-16.0); Mean Corpuscular Hemoglobin 30.9 pg (25.0-34.0); Mean Corpuscular Hgb Conc 31.3 g/dL (32.0-36.0); Mean Corpuscular Volume 98.5 fL (80.0-100.0); Mean Platelet Volume 9.4 fL (9.4-12.4); Platelet Count 306 K/uL (130-400); RDW Coefficient of Variation 23.5 % (11.5-14.5); RDW Standard Deviation 79.3 fL (36.4-46.3)
--- NOTE | 2024-04-26 06:57 | Hospitalist Progress Note ---
Date of Service April 26, 2024 Assessment & Plan (1) GI bleed: (2) Anemia: (3) UTI (urinary tract infection): (4) Acute diarrhea: (5) Leukocytosis: (6) CKD (chronic kidney disease) stage 3, GFR 30-59 ml/min: (7) Hypertension: (8) Hyperkalemia: (9) HTN (hypertension) with goal to be determined: Plan Patient is an 83-year-old female with past medical history of hypertension, CKD, and s/p mechanical aortic valve on Coumadin. She was discharged 04/07 after being admitted d/t acute encephalopathy. She was [facility] until April 18 at which time she returned home independently. She presents this admission due to vomiting and diarrhea that began a few days prior to admission (04/23) with associated melena starting 04/22. 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 Patient reporting ongoing melena w/ mild epigastric pain Hemoccult stool order ongoing - Hgb lability this admission Dropped to 5.7 requiring 2 units PRBC No stable in 10s - Continue protonix 40 mg PO twice daily, Pepcid 10 mg, and Carafate QID Blurred Vision - 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, a/w Glaucoma - Patient notes R eye visual blurring (without loss of vision, spots, or floaters) is new - Patient does note that her eyes feel dry - Rx provided for saline eye drops, can consider ocular antihistamine drops if sx persist - Would strongly recommend outpatient f/u w/ Ophthalmology to determine stability of glaucoma - Will obtain MRI Brain given risk for embolus given mechanical valve UTI - UA showing 4+ bacteria, 1+ blood, and 3+ LE; urine culture grew E coli resistant to cipro and levo - Ongoing Cefdinir 300mg BID (start of ABX 04/23) Patient states she is asymptomatic Hyperkalemia - Resolved - suspect secondary to GI bleed - given lokelma which has since been stopped Leukocytosis - Resolved - secondary to prior diarrhea vs UTI vs hemoconcentration GERSON on CKD - Resolved - Remains baseline Cr 1.2-1.4; peaked at 1.77 - pt now with significant improvement most likely secondary to better perfusion s/p transfusion and cautery Chronic Conditions HTN - continue metoprolol, amlodipine, and lasix - resume lisinopril since potassium improved Weakness, deconditioning - continue PT/OT Aortic stenosis s/p mechanical valve placement - last INR 1.5, continue holding warfarin today to ensure continued stability of Hgb - Anticoagulation --> will need detailed discussion of risks vs. benefits of restarting/stopping Patient continues to report melena, encourage ongoing anticoagulation hold Shoulder pain/ OA - voltaren gel held per GI recommendation; may use tylenol PRN VTE ppx: SCDs, ambulation Diet: regular Dispo: med surg. CM following for dispo planning (home PT vs. rehab) Admission and Anticipated Discharge Date Admission Date: April 23, 2024 Supervising Physician Co-Signing Physician Notes I personally examined the patient and verified all regalado points of history and exam, discussed case, and agree with decision making with Dr Islas Mostly worried about blurred vision in her right eye. She has a hard time comparing if it is better or worse than yesterday on initial questioning, on about the third line of questioning trying to ask if it is better or worse than yesterday she relates that it is worse. No visual field cuts, just everything blurry. On review of prior notes, while there is not always a lot of specifics, it seems she has complained of blurred vision frequently in the past, possibly since her transfer to [facility] for glaucoma related issues about 9 months ago. Vitals noted, in general she is awake and alert vision grossly intact but blurry right eye, left chronic blindness. Breathing unlabored no accessory muscle use good effort. Skin shows no rashes no pallor or icterus. Probable upper GI bleed/ acute blood loss anemia requiring 2 units packed red cell transfusion (hemoglobin in the mid fives, symptomatic with weakness and lightheadedness)now more stable. continue acid suppression. This seems to be improved. Discussed with patient and niece (over the phone) that it is a very difficult balance because she does require anticoagulation chronically for her mechanical valve (or risk catastrophic/irreversible problems with a stroke) but at the same time she has proven recurrently to be bleedingdiscussed that generally the best way to manage that is to take care of of the most acute problem in the moment, but monitor closely knowing that the situation will shift. In that respect probably will need to start warfarin in the next day or 2appreciate GI input. R eye blurriness - nonspecific. no redness, no pupil defect, no EOMI issues. On review of records, it seems that she has had visual blurring with glaucoma issues for quite a whileand does seem to have a little bit of a difficult time telling me if it is better or worse than prior. 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 At the same time, given that she does have a mechanical valve and she has been off of anticoagulationMRI brain to rule out occipital stroke (fortunately was negative). Continue glaucoma drops, low threshold for ophthalmology involvement. GERSON with hyperkalemiaprobably related to blood in her GI tract as well as volume loss from GI bleed/diarrhea. improved GERSON/hypernatremia hypernatremia improved. GERSON improved PT/OT eval and treat, likely to need some sort of rehab/skilled at discharge. Subjective No acute events overnight. Patient reports feeling more fatigued today w/ mild headache and neck stiffness. Reporting ongoing melena with mild epigastric discomfort. Patient has ongoing blurred vision of the right eye, complete vision loss of left (chronic). She notes feeling that both eyes are more dry than usual. She does not wish to go home today, stating she feels worse than yesterday. Review of Systems Review of Systems: As per HPI Physical Exam Physical Exam: Constitutional: no acute distress, fatigued HEENT: NCAT, no conjunctival infection, generally dry mucous membranes of mouth and eyes CV: regular rhythm, regular rate, mechanical valve heard Respiratory: CTA bilaterally. No rhonchi, wheezes, or crackles. No increased work of breathing MSK: no gross deformities noted, distal pulses 2+ bilaterally Skin: warm, dry, no rashes Neuro: AO x 3 w/o FND Psych: Appropriate Results & Data Results & Data Vital Signs (Past 12 Hours) Vital Signs Temp Pulse Resp BP Pulse Ox O2 Del Method 04/25/24 20:42 36.4 C L 80 18 126/81 99 Room Air 04/25/24 20:30 Room Air Resident Activity Tracking Resident Involvement: Resident Care Provided Care Provided: Adult Hospital Medicine (1) GI bleed GI bleed type/associated pathology: melena Qualified Code(s): K92.1 - Melena
[2024-04-26 07:03] LABS: BUN Creatinine Ratio 30.5 (10-20); Calcium 9.2 mg/dl (8.6-10.3); Creatinine Clr Calc Pharmacy 31.5 ml/min; Potassium 4.3 mmol/L (3.5-5.1)
[2024-04-26] MEDS: traMADol HCL 50 MG TABLET PO PRN (07:40)
[2024-04-26] MEDS: CEFDINIR 300 MG CAP PO SCH (08:01)
[2024-04-26] MEDS: ARTIFICIAL TEARS OPB SCH (10:00)
--- NOTE | 2024-04-26 12:28 | Gastroenterology Progress Note ---
Date of Service April 26, 2024 Assessment & Plan (1) Melena: Plan: Patient seems hemodynamically stable from a GI perspective. Hemoglobin is stable and her BUN is decreasing. If there is active or significant bleeding I would expect the hemoglobin to be decreasing once again and the BUN to be increasing consistent with blood in the GI tract. I believe this patient has multiple potential sources for bleeding including her duodenal ulcers and of course the AVM found at her last endoscopy. This was the only AVM found in the upper GI tract though patient undoubtedly have other AVMs in the jejunum or ileum. Typically bleeding from AVMs is not hemodynamically unstable bleeding. Patient has strong need for anticoagulation with a mechanical valve. No other there is potential for worsening bleeding I believe this could be managed. Transfusion as needed. I would be okay with restarting her anticoagulation running her INR at the lowest level required for thrombosis control. Patient may have dark stools related to old blood in the colon. Or potentially from continued issues. Continue to observe. (2) Upper GI bleed: Admission and Anticipated Discharge Date Admission Date: April 23, 2024 Subjective History of duodenal ulcer with bleed. History of oozing duodenal AVM post cautery. Hemoglobin currently stable. Patient was in the hallway on the way to MRI when visited. Some visual issues. Concern for embolic event. Review of Systems Review of Systems: Unable to conduct review of systems as patient was in transportation for an urgent MRI Physical Exam Physical Exam: Patient has appear in any acute distress. See hospitalist note. Results & Data Results & Data Vital Signs (Past 12 Hours) Vital Signs Temp Pulse Resp BP Pulse Ox O2 Del Method 04/26/24 09:09 133/72 04/26/24 07:35 37 C 74 18 167/90 H 94 Room Air Laboratory Results Hemoglobin fairly stable at 10. BUN is decreasing. Last INR 1.5. PG Care Time/CCT Total # of Minutes Spent Total Time Spent with Patient: Total time spent is greater than 50% in coordination of care (as documented) at patient's floor/unit and/or counseling patient: Coding Level of Care Code 50311 SUB INP/OBS CARE 05/03MIN Diagnoses Melena K92.1 Upper GI bleed K92.2
--- NOTE | 2024-04-26 13:41 | Magnetic Resonance Report ---
EXAM: MR brain wo con CLINICAL HISTORY: Weakness and blurred vision for a couple of days. TECHNIQUE: MRI of the brain was performed without contrast with multiplanar sequences obtained. COMPARISON: 03/28/2024 MR. FINDINGS: Brain Parenchyma: No evidence of acute infarction or hemorrhage. Normal cronin-white matter differentiation. Multiple T2/FLAIR Abnormal hyperintense signals are seen in the bilateral periventricular deep white matter and centrum semiovale representing Fazekas grade 3 chronic microvascular ischemic changes. No mass lesions or focal cortical abnormalities were identified. Ventricles and Sulci: Age-appropriate brain interval changes seen is evident by prominent intra-and extra-axial CSF spaces. Posterior Fossa: Prominent cerebellar folia. Unremarkable brainstem. Cranial Nerves: Normal course and appearance of cranial nerves identified. Vessels: No evidence of vascular malformations or aneurysms. Intracranial arteries and veins appear normal without evidence of stenosis or occlusion. Orbits and Skull Base: Right cataract operation. Orbits and skull base structures are normal without evidence of abnormalities. IMPRESSION: 1. No evidence of hemorrhage, acute ischemic infarction, or obvious space-occupying lesions was seen. 2. Age-appropriate brain involutional and Fazekas grade 3 chronic microvascular ischemic changes. 3. No interval changes. Electronically signed by Jason Nj 04-26-2024 13:41 PM
--- NOTE | 2024-04-26 17:57 | Billing Data ---
Date of Service April 26, 2024 Coding Level of Care Code 65781 SUB INP/OBS CARE MIN
[2024-04-26] MEDS: DICLOFENAC SOD 1% GEL 100 GM TUBE EXT SCH (20:02)
[2024-04-27] MEDS: ACETAMINOPHEN 500 MG TAB PO PRN (04:19)
--- NOTE | 2024-04-27 06:54 | Hospitalist Progress Note ---
Date of Service April 27, 2024 Assessment & Plan (1) GI bleed: (2) Anemia: (3) UTI (urinary tract infection): (4) Acute diarrhea: (5) Leukocytosis: (6) CKD (chronic kidney disease) stage 3, GFR 30-59 ml/min: (7) Hypertension: (8) Hyperkalemia: (9) HTN (hypertension) with goal to be determined: Plan Patient is an 83-year-old female with past medical history of hypertension, CKD, and s/p mechanical aortic valve on Coumadin. She was discharged 04/07 after being admitted d/t acute encephalopathy. [facility] until April 18 at which time she returned home independently. She presents this admission due to vomiting and diarrhea that began a few days prior to admission (04/23) with associated melena starting 04/22. 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 Patient reporting ongoing melena w/ mild epigastric pain Hemoccult stool order ongoing - Hgb lability this admission Required 2 units PRBC Now Remains within goal range > 8 - Continue protonix 40 mg PO twice daily, Pepcid 10 mg, and Carafate QID - Appreciate GI recommendations Will follow for return of GIB as anticoagulation re-instated Blurred Vision - 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, a/w Glaucoma - Upon records review, R eye visual blurring appears chronic in nature - Patient does note that her eyes feel dry Rx provided for saline eye drops - MRI Brain unremarkable - Would strongly recommend outpatient f/u w/ Ophthalmology to determine stability of glaucoma UTI - UA showing 4+ bacteria, 1+ blood, and 3+ LE; urine culture grew E coli resistant to cipro and levo - Ongoing Cefdinir 300mg BID (start of ABX 04/23) Patient states she is asymptomatic Hyperkalemia - Resolved - suspect secondary to GI bleed - given lokelma which has since been stopped Leukocytosis - Resolved - secondary to prior diarrhea vs UTI vs hemoconcentration GERSON on CKD - Resolved - Remains baseline Cr 1.2-1.4; peaked at 1.77 - pt now with significant improvement most likely secondary to better perfusion s/p transfusion and cautery Chronic Conditions HTN - continue metoprolol, amlodipine, and lasix - resume lisinopril since potassium improved Weakness, deconditioning - continue PT/OT Aortic stenosis s/p mechanical valve placement - last INR 1.5, continue holding warfarin today to ensure continued stability of Hgb - Anticoagulation --> upon extensive discussion, patient has preference to mitigate stroke risk from mechanical valve Will restart anticoagulation with heparin gtt and monitor for repeat bleed, follow Hgb Shoulder pain/ OA - voltaren gel held per GI recommendation; may use tylenol PRN VTE ppx: SCDs, ambulation Diet: regular Dispo: med surg. CM following for dispo planning (home PT vs. rehab) Admission and Anticipated Discharge Date Admission Date: April 23, 2024 Supervising Physician Co-Signing Physician Notes I personally examined the patient and verified all regalado points of history and exam, discussed case, and agree with decision making with Dr Islas continues to be weak. Vision continues to be blurry. Discussed discharge planningshe expresses a bit of an ambivalenceon the 1 hand noting that she feels too weak to be able to take care of herself, and on the other hand wondering when she can go back home independently. We tried to discuss the overall planning. Vitals noted, in general she is awake and alert vision grossly intact but blurry right eye, left chronic blindness. Breathing unlabored no accessory muscle use good effort. Skin shows no rashes no pallor or icterus. Probable upper GI bleed/ acute blood loss anemia requiring 2 units packed red cell transfusion (hemoglobin in the mid fives, symptomatic with weakness and lightheadedness)now more stable. continue acid suppression. This seems to be improved. given mechanical aortic valveresume anticoagulation. I discussed with patient and family yesterday, resident physician discussed with patient again todaywill initiate with heparin drip given that she is recently bled, this will allow for close monitoring and quick cessation should she rebleed. Once she is clearly stable, then can resume Coumadin. She understands that this is a situation with no "chronically correct answer" given that she requires anticoagulation for stroke risk reduction with mechanical valve, but will have an extremely high probability of recurrent bleeding events. R eye blurriness - nonspecific. no redness, no pupil defect, no EOMI issues. On review of records, it seems that she has had visual blurring with glaucoma issues for quite a whileand does seem to have a little bit of a difficult time telling me if it is better or worse than prior. Continue glaucoma drops, will want to have input from optometry/ophthalmology when they can be reached (given that continuity would make a lot more sense with her situation since I suspect a lot of it is chronicwould reach out to her primary eye doctor which reportedly is Dr. [facility]), Rather than simply consulting whoever is on-call who does not know her GERSON with hyperkalemiaprobably related to blood in her GI tract as well as volume loss from GI bleed/diarrhea. improved GERSON/hypernatremia hypernatremia improved. GERSON improved PT/OT eval and treat, likely to need some sort of rehab/skilled at discharge. we discussed discharge planningand in respect to her ambivalence, I offered empathy that she would want to maintain her independence, but reminded her that she has been at home not feeling safe, and that at the very least she should rehab to where she could potentially be independent again; at the same time, we discussed that a lot of patients as they grow older reach a point where they are no longer safe independently, but seem to make choices that values their independence over their quality of life. She also inquired about 24/7 careI discussed that unfortunately this is not something that is able to be set up medically/through insurance, and that the private duty/[id number] expense can get quite pricey. Subjective No acute events overnight. Still expressing general abdominal discomfort and fatigue. Intermittent headaches and neck pain. Ongoing blurred vision despite eye re-wetting drops. Ongoing glaucoma medications. Review of Systems Review of Systems: As per HPI Physical Exam Physical Exam: Constitutional: no acute distress, fatigued HEENT: NCAT, no conjunctival injection, PERRLA, generally dry mucous membranes of mouth and eyes CV: regular rhythm, regular rate, mechanical valve heard Respiratory: CTA bilaterally. No rhonchi, wheezes, or crackles. No increased work of breathing Abd: Non-distended, active bowel sounds, no TTP, no rebound or guarding MSK: no gross deformities noted, distal pulses 2+ bilaterally Skin: warm, dry, no rashes Neuro: AO x 3 w/o FND Psych: Appropriate Results & Data Results & Data Vital Signs (Past 12 Hours) Vital Signs Temp Pulse Resp BP Pulse Ox O2 Del Method 04/26/24 20:06 37.8 C H 91 H 18 107/59 L 98 Room Air 04/26/24 19:56 Room Air Resident Activity Tracking Resident Involvement: Resident Care Provided Care Provided: Adult Hospital Medicine (1) GI bleed GI bleed type/associated pathology: melena Qualified Code(s): K92.1 - Melena
[2024-04-27 07:46] LABS: Hematocrit (blood only) 30.8 % (37.0-47.0); Hemoglobin 9.6 g/dl (12.0-16.0)
[2024-04-27 07:55] LABS: BUN Creatinine Ratio 28.5 (10-20); Calcium 8.8 mg/dl (8.6-10.3); Creatinine Clr Calc Pharmacy 32.8 ml/min; Potassium 3.9 mmol/L (3.5-5.1)
--- NOTE | 2024-04-27 10:43 | Gastroenterology Progress Note ---
Date of Service April 27, 2024 Assessment & Plan (1) Upper GI bleed: Plan: Hemoglobin fluctuating within a range. Still with dark stools continue oral PPI. Predominantly for the ulcers. Will really affect the AVMs. Her melena may reflect old blood in the GI tract or may signify bleeding AVMs beyond the reach of the upper endoscope. Could consider reanticoagulation at this time with embolic risks in this patient with a mechanical aortic valve. Potentially start with heparin with Coumadin conversion if tolerated. Check iron stores (2) On warfarin therapy: Plan: See above Admission and Anticipated Discharge Date Admission Date: April 23, 2024 Subjective Melena Multifactorial including duodenal ulcer disease. And at least 1 duodenal AVM. Post cautery. Hemoglobin seems to be staying in a range between mid nines to 10 for the last 4 days. Stools remain dark. Unclear whether this is ongoing oozing versus old blood in the GI tract. Her BUN is falling which typically occurs with cessation of bleeding and/or rehydration. This patient has aortic valve. Of course this is a concern regards to her anticoagulation. Bleeding from AVMs typically is more oozing than annabel hemorrhage. Anticoagulation could be restarted to protect against a CVA. May be heparin to start with conversion to Coumadin if there is no signs of increased bleeding. I believe this to the discretion of the hospitalist team. She had a fairly lowish ferritin back in March. With her bleeding we should recheck this. Iron deficiency could contribute to persistent or worsening anemia. Folate and B12 levels from that date were normal. Review of Systems Review of Systems: Patient sleeping arouses to voice. States she does not feel well. Complaining of blurred vision. She did have a MRI of the brain the yesterday without obvious embolic events. No shortness of breath or chest pain just complains of weakness Physical Exam Physical Exam: Benign abdominal exam Results & Data Results & Data Vital Signs (Past 12 Hours) Vital Signs Temp Pulse Resp BP Pulse Ox O2 Del Method 04/27/24 07:31 36.8 C 80 16 115/73 97 Room Air Laboratory Results Hemoglobin 9.6. PG Care Time/CCT Total # of Minutes Spent Total Time Spent with Patient: Total time spent is greater than 50% in coordination of care (as documented) at patient's floor/unit and/or counseling patient: Coding Level of Care Code 59452 SUB INP/OBS CARE 1/25MIN Diagnoses Upper GI bleed K92.2 On warfarin therapy Z79.01
[2024-04-27] MEDS ORDERED: Heparin IV Adult Wt-Based Standard *NO* INITIAL Bolus Protocol IV STA (12:24)
[2024-04-27 13:40] LABS: Basophils # (auto) 0.03 K/uL (0.00-0.20); Basophils % (auto) 0.3 %; Eosinophils # (auto) 0.22 K/uL (0.00-0.50); Eosinophils % (auto) 2.5 %; Hematocrit (blood only) 30.9 % (37.0-47.0); Hemoglobin 9.5 g/dl (12.0-16.0); Immature Granulocytes # (auto) 0.07 K/uL (0.01-0.20); Immature Granulocytes % (auto) 0.8 %; Lymphocytes % (auto) 13.9 %; Mean Corpuscular Hemoglobin 30.8 pg (25.0-34.0); Mean Corpuscular Hgb Conc 30.7 g/dL (32.0-36.0); Mean Corpuscular Volume 100.3 fL (80.0-100.0); Mean Platelet Volume 9.4 fL (9.4-12.4); Monocytes # (auto) 0.63 K/uL (0.11-0.59); Monocytes % (auto) 7.3 %; Neutrophils # (auto) 6.49 K/uL (1.40-6.50); Neutrophils % (auto) 75.2 %; Platelet Count 280 K/uL (130-400); RDW Coefficient of Variation 22.9 % (11.5-14.5); Red Blood Count 3.08 M/uL (4.20-5.40); White Blood Count 8.64 K/ul (4.8-10.8)
[2024-04-27 13:58] LABS: Anisocytosis Present
[2024-04-27 14:23] LABS: INR 1.2 (0.9-1.1); Partial Thromboplastin Ratio 1.2; Partial Thromboplastin Time 32 Seconds (21-31); Prothrombin Time 12.5 Seconds (9.0-12.0)
[2024-04-27] MEDS: HEPARIN 25000 UNIT/500 ML 25,000 UNITS/500 ML BAG IV SCH (14:23)
--- NOTE | 2024-04-27 17:26 | Billing Data ---
Date of Service April 27, 2024 Coding Level of Care Code 17300 SUB INP/OBS CARE MIN
[2024-04-27 21:56] LABS: ANTI-Xa, UFH(UnfractionatedHep 0.53 IU/ml (0.3-0.7)
[2024-04-28 07:48] LABS: Hematocrit (blood only) 29.9 % (37.0-47.0); Hemoglobin 9.3 g/dl (12.0-16.0); Mean Corpuscular Hemoglobin 31.3 pg (25.0-34.0); Mean Corpuscular Hgb Conc 31.1 g/dL (32.0-36.0); Mean Corpuscular Volume 100.7 fL (80.0-100.0); Platelet Count 240 K/uL (130-400); RDW Coefficient of Variation 22.3 % (11.5-14.5); RDW Standard Deviation 80.7 fL (36.4-46.3); Red Blood Count 2.97 M/uL (4.20-5.40); White Blood Count 8.51 K/ul (4.8-10.8)
--- NOTE | 2024-04-28 08:05 | Hospitalist Progress Note ---
Date of Service April 28, 2024 Assessment & Plan (1) GI bleed: (2) Anemia: (3) UTI (urinary tract infection): (4) Acute diarrhea: (5) Leukocytosis: (6) CKD (chronic kidney disease) stage 3, GFR 30-59 ml/min: (7) Hypertension: (8) Hyperkalemia: (9) HTN (hypertension) with goal to be determined: Plan Patient is an 83-year-old female with past medical history of hypertension, CKD, and s/p mechanical aortic valve on Coumadin. She was discharged 04/07 after being admitted d/t acute encephalopathy. [facility] was [facility] until April 18 at which time she returned home independently. She presents this admission due to vomiting and diarrhea that began a few days prior to admission (04/23) with associated melena starting 04/22. 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 Consider IV iron supplementation - Continue Protonix 40 mg PO twice daily, Pepcid 10 mg, and Carafate QID - Appreciate GI recommendations Will follow for recurrence of GIB as anticoagulation re-instated - continue Heparin gtt, discuss Warfarin reinitiation with GI Blurred Vision - 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, a/w Glaucoma - Upon records review, R eye visual blurring appears chronic in nature - Patient does note that her eyes feel dry Rx provided for saline eye drops - MRI Brain unremarkable - Would strongly recommend outpatient f/u w/ Ophthalmology to determine stability of glaucoma UTI - UA showing 4+ bacteria, 1+ blood, and 3+ LE; urine culture grew E coli resistant to cipro and levo - Ongoing Cefdinir 300mg BID (start of ABX 04/23) Hyperkalemia - Resolved - suspect secondary to GI bleed - given lokelma which has since been stopped Leukocytosis - Resolved - secondary to prior diarrhea vs UTI vs hemoconcentration GERSON on CKD - Resolved - Remains baseline Cr 1.2-1.4; peaked at 1.77 Chronic Conditions HTN - continue metoprolol, amlodipine, and lasix, lisinopril Weakness, deconditioning - continue PT/OT - CM following for dispo planning Aortic stenosis s/p mechanical valve placement - Continue holding warfarin today to ensure continued stability of Hgb - Anticoagulation --> upon extensive discussion, patient has preference to mitigate stroke risk from mechanical valve Continue anticoagulation with heparin gtt, follow Hgb. Discuss restarting Warfarin with GI. Shoulder pain/ OA - Voltaren gel held per GI recommendation; may use tylenol PRN, lidocaine patch VTE ppx: Heparin Diet: regular Dispo: med surg. CM following for dispo planning (home PT vs. rehab) Admission and Anticipated Discharge Date Admission Date: April 23, 2024 Supervising Physician Co-Signing Physician Notes Attending attestation Pt seen and examined in concert with Dr. Fuller. In agreement with the documented findings as noted in the resident documentation with any exceptions or additions as noted here. Ongoing weakness stable to mildly improved per patient, accompanied by ongoing epigastric discomfort/bloating and nausea which improves with PRN administration. On examination, S1/S2 nl RRR, 2-3/6 LEMUEL. CTAB. Abd NT/ND BS+ve Acute blood loss anemia 2/2 upper GI bleed s/p EGD and cautery - stable hemoglobin, continue to trend and transfuse as noted. Tolerating heparin, so will transition to coumadin without bolus initiation with goal of 2.5 Urinary tract infection - cefdinir day 5. Will complete course of 7 days. Blurry vision - chronic visual deficit, agree w/ outpatient evaluation as noted Else see resident documentation as noted. Subjective No acute events overnight. Still expressing general abdominal discomfort and fatigue. Neck pain, partial improvement with lidocaine patch Ongoing blurred vision despite eye re-wetting drops. Ongoing glaucoma medica tions. Review of Systems Review of Systems: As per HPI Physical Exam Physical Exam: Constitutional: no acute distress, lethargic HEENT: NCAT, no conjunctival injection CV: extremities well-perfused, no LE edema Resp: no increased work of breathing GI: nondistended MSK: no gross deformities Skin: warm, dry, no rash appreciated Neuro: alert, oriented, no focal neurologic deficit appreciated Results & Data Results & Data Vital Signs (Past 12 Hours) Vital Signs Temp Pulse Resp BP Pulse Ox O2 Del Method 04/28/24 07:50 36.4 C L 67 16 116/62 97 Room Air 04/27/24 20:31 37.0 C 75 18 102/69 99 Room Air Resident Activity Tracking Resident Involvement: Resident Care Provided Care Provided: Adult Hospital Medicine (1) GI bleed GI bleed type/associated pathology: melena Qualified Code(s): K92.1 - Melena
[2024-04-28] MEDS: FAMOTIDINE 20 MG TAB PO SCH (08:12)
[2024-04-28 08:30] LABS: Ferritin 199.6 ng/ml (8-388)
[2024-04-28 09:21] LABS: ANTI-Xa, UFH(UnfractionatedHep 0.92 IU/ml (0.3-0.7)
--- NOTE | 2024-04-28 11:14 | Gastroenterology Progress Note ---
Date of Service April 28, 2024 Assessment & Plan (1) Upper GI bleed: Plan: 83 year old female with history of HTN, mechanical aortic valve replacement approximately 30 years ago on warfarin, glaucoma, CKD-3 admitted w/ black stools s/p S/P EGD x 3 and colonoscopy w/ evidence of nonbleeding duodenal ulcer retreated w/ bipolar cautery and a single bleeding angiodysplastic lesion in the duodenum treated with bipolar cautery - Trend H&H - Monitor GI output - Transfuse PRN per primary team - Once restarting AC is indicated, will need to closing follow HGB - Smoking cessation encouraged - No NSAIDs - Avoid diclofenac gel - Pantoprazole 40 mg twice daily Recall GI as needed. I spent a total of 40 minutes on the date of service in review of patient's record, and previously obtained information in person and appropriate medical visit, discussion and education of plan, with patient and/or caregiver, placing orders for tests/referral/procedures as medically necessary and documentation of pertinent clinical information in patient's medical records for their visit today. (2) Heme + stool: Admission and Anticipated Discharge Date Admission Date: April 23, 2024 Supervising Physician Co-Signing Physician Notes Hemoglobin 9.3 relatively stable. Patient is now on heparin. I think attempting anticoagulation is required. Follow-up for further bleeding. Subjective Pt was seen and evaluated, chart reviewed. No GI concerns this AM. Had a brown stool documented by nursing staff. HGB stable overnight, 9.3 BUN 35 EGD 2023: - One mild stenosis was found at the gastroesophageal junction. The stenosis was traversed. - The entire examined stomach was normal. - Many non-bleeding superficial duodenal ulcers with pigmented material were found in the duodenal bulb. Coagulation for bleeding prevention using bipolar probe was successful. - A single small angiodysplastic lesion with bleeding was found in the second portion of the duodenum. Coagulation for hemostasis using bipolar probe was successful. EGD 2023: 2 cm hiatal hernia. - Acute gastritis, characterized by erythema. - NO biopsies done as recent bleeding. - Non-bleeding duodenal ulcers with no stigmata of bleeding. - Non-bleeding duodenal ulcer with a visible vessel. Treated with argon plasma coagulation (APC). Clip was placed. - No specimens collected. EGD 2023: Z-line regular, 36 cm from the incisors. - Normal esophagus. - No evidence of Horvath's mucosa or esophagitis - 2 cm hiatal hernia. - No evidence of blood, ulcer, tumor. - Biopsies were taken with a cold forceps for Helicobacter pylori testing. - Non-bleeding duodenal ulcer with no stigmata of bleeding. - Erythematous duodenopathy. Colonoscopy 2023: Diverticulosis in the left colon. - Small amount of dark liquid stool was visualized in the cecum and in the ascending colon. - No specimens collected. Review of Systems Review of Systems: All other findings negative except as noted in HPI. Physical Exam Constitutional: WD/WN, vitals as above Respiratory: normal respiratory effort Gastrointestinal (Abdomen): normal bowel sounds, soft, nontender, no hepatosplenomegaly Skin: no rashes, warm and dry Results & Data Results & Data Vital Signs (Past 12 Hours) Vital Signs Temp Pulse Resp BP Pulse Ox O2 Del Method 04/28/24 10:00 Room Air 04/28/24 07:50 97.5 F L 67 16 116/62 97 Room Air Laboratory Results 04/28/24 04/28/24 04/27/24 Range/Units 08:23 07:19 20:49 WBC 8.51 (4.8-10.8) K/ul RBC 2.97 L (4.20-5.40) M/uL Hgb 9.3 L (12.0-16.0) g/dl Hct 29.9 L (37.0-47.0) % MCV 100.7 H (80.0-100.0) fL MCH 31.3 (25.0-34.0) pg MCHC 31.1 L (32.0-36.0) g/dL RDW Std Deviation 80.7 H (36.4-46.3) fL RDW Coeff of Xavier 22.3 H (11.5-14.5) % Plt Count 240 (130-400) K/uL MPV 10.0 (9.4-12.4) fL Immature Gran % (Auto) % Neut % (Auto) % Lymph % (Auto) % Kimble % (Auto) % Eos % (Auto) % Baso % (Auto) % Neut # (Auto) (1.40-6.50) K/uL Lymph # (Auto) (1.20-3.40) K/uL Kimble # (Auto) (0.11-0.59) K/uL Eos # (Auto) (0.00-0.50) K/uL Baso # (Auto) (0.00-0.20) K/uL Immature Gran # (Auto) (0.01-0.20) K/uL Anisocytosis PT (9.0-12.0) Seconds INR (0.9-1.1) APTT (21-31) Seconds PTT Ratio Heparin Anti-Xa, Unfract 0.92 H* 0.53 (0.3-0.7) IU/ml Iron 14 L (35-150) mcg/dl TIBC 216 L (250-450) mcg/dl Transferrin 154 L (200-360) mg/dl Transferrin % Sat 6 L (15-50) % Ferritin 199.6 (8-388) ng/ml 04/27/24 Range/Units 13:07 WBC 8.64 (4.8-10.8) K/ul RBC 3.08 L (4.20-5.40) M/uL Hgb 9.5 L (12.0-16.0) g/dl Hct 30.9 L (37.0-47.0) % MCV 100.3 H (80.0-100.0) fL MCH 30.8 (25.0-34.0) pg MCHC 30.7 L (32.0-36.0) g/dL RDW Std Deviation 81.0 H (36.4-46.3) fL RDW Coeff of Xavier 22.9 H (11.5-14.5) % Plt Count 280 (130-400) K/uL MPV 9.4 (9.4-12.4) fL Immature Gran % (Auto) 0.8 % Neut % (Auto) 75.2 % Lymph % (Auto) 13.9 % Kimble % (Auto) 7.3 % Eos % (Auto) 2.5 % Baso % (Auto) 0.3 % Neut # (Auto) 6.49 (1.40-6.50) K/uL Lymph # (Auto) 1.20 (1.20-3.40) K/uL Kimble # (Auto) 0.63 H (0.11-0.59) K/uL Eos # (Auto) 0.22 (0.00-0.50) K/uL Baso # (Auto) 0.03 (0.00-0.20) K/uL Immature Gran # (Auto) 0.07 (0.01-0.20) K/uL Anisocytosis Present PT 12.5 H (9.0-12.0) Seconds INR 1.2 H (0.9-1.1) APTT 32 H (21-31) Seconds PTT Ratio 1.2 Heparin Anti-Xa, Unfract (0.3-0.7) IU/ml Iron (35-150) mcg/dl TIBC (250-450) mcg/dl Transferrin (200-360) mg/dl Transferrin % Sat (15-50) % Ferritin (8-388) ng/ml PG Care Time/CCT Total # of Minutes Spent Total Time Spent with Patient: Total time spent is greater than 50% in coordination of care (as documented) at patient's floor/unit and/or counseling patient: Coding Level of Care Code 52524 SUB INP/OBS CARE 2/35MIN Diagnoses Upper GI bleed K92.2 Heme + stool R19.5
[2024-04-28 17:29] LABS: ANTI-Xa, UFH(UnfractionatedHep 0.64 IU/ml (0.3-0.7)
[2024-04-28] MEDS: WARFARIN SOD 5 MG TAB PO SCH (18:00)
--- NOTE | 2024-04-29 07:55 | Hospitalist Progress Note ---
Date of Service April 29, 2024 Assessment & Plan (1) GI bleed: (2) Anemia: (3) UTI (urinary tract infection): (4) Acute diarrhea: (5) Leukocytosis: (6) CKD (chronic kidney disease) stage 3, GFR 30-59 ml/min: (7) Hypertension: (8) Hyperkalemia: (9) HTN (hypertension) with goal to be determined: (10) Pressure ulcer: Plan Patient is an 83-year-old female with past medical history of hypertension, CKD, and s/p mechanical aortic valve on Coumadin. She was discharged 04/07 after being admitted d/t acute encephalopathy. She was at [facility] until April 18 at which time she returned home independently. She presents this admission due to vomiting and diarrhea that began a few days prior to admission (04/23) with associated melena starting 04/22. 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 Consider IV iron supplementation - Continue Protonix 40 mg PO twice daily, Pepcid 10 mg, and Carafate QID - Appreciate GI recommendations - Warfarin restarted at 5mg daily on 04/27 - AM INR 1.2, continue Heparin gtt until INR therapeutic, 2.5-3.5 Blurred Vision - 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, a/w Glaucoma - Upon records review, R eye visual blurring appears chronic in nature - Patient does note that her eyes feel dry Rx provided for saline eye drops - MRI Brain unremarkable - Recommend outpatient f/u w/ Ophthalmology to determine stability of glaucoma UTI - UA showing 4+ bacteria, 1+ blood, and 3+ LE; urine culture grew E coli resistant to cipro and levo - Ongoing Cefdinir 300mg BID (start of ABX 04/23 - plan to tx for 7 days) Buttock Ulcer: - Wound care consulted, appreciate recs Hyperkalemia - Resolved - suspect secondary to GI bleed - given lokelma which has since been stopped Leukocytosis - Resolved - secondary to prior diarrhea vs UTI vs hemoconcentration GERSON on CKD - Resolved - AM Cr again bumped to 1.7 (baseline ~1.25) - continue to monitor, consider additional fluids if inadequate PO intake. Chronic Conditions HTN - continue metoprolol, amlodipine, lasix, lisinopril Weakness, deconditioning - PT/OT - recommending rehab placement - CM following for dispo planning Aortic stenosis s/p mechanical valve placement - Warfarin restarted, management as noted above Shoulder pain/ OA - Voltaren gel held per GI recommendation; may use tylenol PRN, lidocaine patch VTE ppx: Heparin, Warfarin Diet: regular Dispo: med surg. CM following for dispo planning Admission and Anticipated Discharge Date Admission Date: April 23, 2024 Supervising Physician Co-Signing Physician Notes Attending attestation Pt seen and examined in concert with Dr. Fuller. In agreement with the documented findings as noted in the resident documentation with any exceptions or additions as noted here. Ongoing weakness stable to mildly improved per patient. Improved epigastric discomfort/bloating and nausea. On examination, S1/S2 nl RRR, 2-3/6 LEMUEL. CTAB. Abd NT/ND BS+ve Acute blood loss anemia 2/2 upper GI bleed s/p EGD and cautery - stable hemoglobin, continue to trend and transfuse as noted. Tolerating heparin, so will transition to coumadin without bolus initiation with goal of 2.5. Trend INR daily Urinary tract infection - cefdinir to complete course Blurry vision - chronic visual deficit, agree w/ outpatient evaluation as noted Superficial wound of the buttock, present on admission - wound care consult placed Else see resident documentation as noted. Subjective No acute events overnight. Still expressing general fatigue. + Neck pain, partial improvement with lidocaine patch Ongoing blurred vision despite eye re-wetting drops. Home glaucoma medications continued. Review of Systems Review of Systems: As per HPI Physical Exam Physical Exam: Constitutional: no acute distress, lethargic HEENT: NCAT, no conjunctival injection CV: extremities well-perfused, no LE edema Resp: no increased work of breathing GI: nondistended MSK: no gross deformities Skin: warm, dry, no rash appreciated Neuro: alert, oriented, no focal neurologic deficit appreciated Results & Data Results & Data Vital Signs (Past 12 Hours) Vital Signs Temp Pulse Resp BP Pulse Ox O2 Del Method 04/29/24 07:50 36.9 C 86 16 128/78 96 Room Air 04/28/24 22:30 Room Air 04/28/24 20:00 37.1 C 76 16 112/71 96 Room Air Resident Activity Tracking Resident Involvement: Resident Care Provided Care Provided: Adult Hospital Medicine (1) GI bleed GI bleed type/associated pathology: melena Qualified Code(s): K92.1 - Melena
[2024-04-29 08:11] LABS: Basophils # (auto) 0.05 K/uL (0.00-0.20); Basophils % (auto) 0.5 %; Eosinophils % (auto) 3.1 %; Hematocrit (blood only) 30.6 % (37.0-47.0); Hemoglobin 9.6 g/dl (12.0-16.0); Immature Granulocytes # (auto) 0.07 K/uL (0.01-0.20); Immature Granulocytes % (auto) 0.7 %; Lymphocytes # (auto) 1.21 K/uL (1.20-3.40); Lymphocytes % (auto) 12.6 %; Mean Corpuscular Hgb Conc 31.4 g/dL (32.0-36.0); Mean Platelet Volume 9.3 fL (9.4-12.4); Monocytes # (auto) 0.54 K/uL (0.11-0.59); Monocytes % (auto) 5.6 %; Neutrophils # (auto) 7.46 K/uL (1.40-6.50); Neutrophils % (auto) 77.5 %; Platelet Count 294 K/uL (130-400); RDW Coefficient of Variation 21.3 % (11.5-14.5); White Blood Count 9.63 K/ul (4.8-10.8)
[2024-04-29 08:31] LABS: INR 1.2 (0.9-1.1)
[2024-04-29 08:36] LABS: BUN Creatinine Ratio 22.4 (10-20); Calcium 9.3 mg/dl (8.6-10.3); Creatinine Clr Calc Pharmacy 23.7 ml/min; Potassium 4.2 mmol/L (3.5-5.1)
[2024-04-29 08:41] LABS: Anisocytosis Present
--- NOTE | 2024-04-29 10:10 | Gastroenterology Progress Note ---
Date of Service April 29, 2024 Assessment & Plan (1) Melena: Plan: 83 year old female with history of HTN, mechanical aortic valve replacement approximately 30 years ago on warfarin, glaucoma, CKD-3 admitted w/ black stools s/p S/P EGD x 3 and colonoscopy w/ evidence of nonbleeding duodenal ulcer retreated w/ bipolar cautery and a single bleeding angiodysplastic lesion in the duodenum treated with bipolar cautery. Given mechanical valve, she was started on heparin gtt, HGB has remained stable and brown stools are documented. Anticipate she will be transitioned to Coumadin given tolerance of heparin - Trend H&H - Monitor GI output - Transfuse PRN per primary team - Smoking cessation encouraged - No NSAIDs - Avoid diclofenac gel - Pantoprazole 40 mg twice daily Recall GI as needed. Thank you for allowing us to participate in the care of this patient. Please call with any acute changes, questions or concerns. Please see addendum below with additional recommendation from my supervising physician. I spent a total of 40 minutes on the date of service in review of patient's record, and previously obtained information in person and appropriate medical visit, discussion and education of plan, with patient and/or caregiver, placing orders for tests/referral/procedures as medically necessary and documentation of pertinent clinical information in patient's medical records for their visit today. Admission and Anticipated Discharge Date Admission Date: April 23, 2024 Supervising Physician Co-Signing Physician Notes Agree with above. Iron stores appear to be anemia of chronic disease. Tolerating IV heparin. Conversion to Coumadin per primary service. Long-term PPI therapy suggested. Patient should avoid NSAIDs diclofenac gel and take long-term PPI therapy. Subjective Pt was seen and evaluated, chart reviewed. HGB 9.6. Brown stools are documented this AM. Has been on Heparin. Review of Systems Review of Systems: All other findings negative except as noted in HPI. Physical Exam Constitutional: WD/WN, vitals as above Respiratory: normal respiratory effort, lungs clear to auscultation Cardiovascular: Rate/Rhythm: regular rate and regular rhythm Gastrointestinal (Abdomen): normal bowel sounds, soft, nontender, no hepatosplenomegaly Skin: no rashes, warm and dry Results & Data Results & Data Vital Signs (Past 12 Hours) Vital Signs Temp Pulse Resp BP Pulse Ox O2 Del Method 04/29/24 07:50 98.4 F 86 16 128/78 96 Room Air 04/28/24 22:30 Room Air Laboratory Results 04/29/24 04/28/24 Range/Units 07:52 16:48 WBC 9.63 (4.8-10.8) K/ul RBC 3.00 L (4.20-5.40) M/uL Hgb 9.6 L (12.0-16.0) g/dl Hct 30.6 L (37.0-47.0) % MCV 102.0 H (80.0-100.0) fL MCH 32.0 (25.0-34.0) pg MCHC 31.4 L (32.0-36.0) g/dL RDW Std Deviation 79.0 H (36.4-46.3) fL RDW Coeff of Xavier 21.3 H (11.5-14.5) % Plt Count 294 (130-400) K/uL MPV 9.3 L (9.4-12.4) fL Immature Gran % (Auto) 0.7 % Neut % (Auto) 77.5 % Lymph % (Auto) 12.6 % [place] % (Auto) 5.6 % Eos % (Auto) 3.1 % Baso % (Auto) 0.5 % Neut # (Auto) 7.46 H (1.40-6.50) K/uL Lymph # (Auto) 1.21 (1.20-3.40) K/uL [place] # (Auto) 0.54 (0.11-0.59) K/uL Eos # (Auto) 0.30 (0.00-0.50) K/uL Baso # (Auto) 0.05 (0.00-0.20) K/uL Immature Gran # (Auto) 0.07 (0.01-0.20) K/uL Anisocytosis Present PT 13.0 H (9.0-12.0) Seconds INR 1.2 H (0.9-1.1) Heparin Anti-Xa, Unfract 0.70 0.64 (0.3-0.7) IU/ml Sodium 138 (136-145) mmol/L Potassium 4.2 (3.5-5.1) mmol/L Chloride 107 (98-107) mmol/L Carbon Dioxide 24 (21-32) mmol/L Anion Gap 7 (3-11) BUN 38 H (6-23) mg/dl Creatinine 1.70 H (0.6-1.2) mg/dl Est Cr Clr Drug Dosing 23.7 ml/min eGFR 29.21 BUN/Creatinine Ratio 22.4 H (10-20) Glucose 84 (70-99(Fasting)) mg/dl Calcium 9.3 (8.6-10.3) mg/dl PG Care Time/CCT Total # of Minutes Spent Total Time Spent with Patient: Total time spent is greater than 50% in coordination of care (as documented) at patient's floor/unit and/or counseling patient: Coding Level of Care Code 87593 SUB INP/OBS CARE 2/35MIN Diagnoses Melena K92.1
--- NOTE | 2024-04-30 08:05 | Hospitalist Progress Note ---
Date of Service April 30, 2024 Assessment & Plan (1) GI bleed: (2) Anemia: (3) UTI (urinary tract infection): (4) Acute diarrhea: (5) Leukocytosis: (6) CKD (chronic kidney disease) stage 3, GFR 30-59 ml/min: (7) Hypertension: (8) Hyperkalemia: (9) HTN (hypertension) with goal to be determined: (10) Pressure ulcer: Plan Patient is an 83-year-old female with past medical history of hypertension, CKD, and s/p mechanical aortic valve on Coumadin. She was discharged 04/07 after being admitted d/t acute encephalopathy. She was at [facility] until April 18 at which time she returned home independently. She presents this admission due to vomiting and diarrhea that began a few days prior to admission (04/23) with associated melena starting 04/22. 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 Consider IV iron supplementation - Continue Protonix 40 mg PO twice daily, Pepcid 10 mg, and Carafate QID - Appreciate GI recommendations - Warfarin restarted at 5mg daily on 04/27 - AM INR 1.2, continue Heparin gtt until INR therapeutic, 2.5-3.5 Blurred Vision - 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, a/w Glaucoma - Upon records review, R eye visual blurring appears chronic in nature - Patient does note that her eyes feel dry Rx provided for saline eye drops - MRI Brain unremarkable - Recommend outpatient f/u w/ Ophthalmology to determine stability of glaucoma UTI - UA showing 4+ bacteria, 1+ blood, and 3+ LE; urine culture grew E coli resistant to cipro and levo - Ongoing Cefdinir 300mg BID (start of ABX 04/23 - plan to tx for 7 days) Buttock Ulcer: - Wound care consulted, appreciate recs Hyperkalemia - Resolved - suspect secondary to GI bleed - given lokelma which has since been stopped Leukocytosis - Resolved - secondary to prior diarrhea vs UTI vs hemoconcentration GERSON on CKD - Resolved - AM Cr again bumped to 1.7 (baseline ~1.25) - continue to monitor, consider additional fluids if inadequate PO intake. Chronic Conditions HTN - continue metoprolol, amlodipine, lasix, lisinopril Weakness, deconditioning - PT/OT - recommending rehab placement - CM following for dispo planning Aortic stenosis s/p mechanical valve placement - Warfarin restarted, management as noted above Shoulder pain/ OA - Voltaren gel held per GI recommendation; may use tylenol PRN, lidocaine patch VTE ppx: Heparin, Warfarin Diet: regular Dispo: med surg. CM following for dispo planning Admission and Anticipated Discharge Date Admission Date: April 23, 2024 Subjective No acute events overnight. Still expressing general fatigue. + Neck pain, partial improvement with lidocaine patch Ongoing blurred vision despite eye re-wetting drops. Home glaucoma medications continued. Review of Systems Review of Systems: As per HPI Physical Exam Physical Exam: Constitutional: no acute distress, lethargic HEENT: NCAT, no conjunctival injection CV: extremities well-perfused, no LE edema Resp: no increased work of breathing GI: nondistended MSK: no gross deformities Skin: warm, dry, no rash appreciated Neuro: alert, oriented, no focal neurologic deficit appreciated Results & Data Results & Data Vital Signs (Past 12 Hours) Vital Signs Temp Pulse Resp BP Pulse Ox O2 Del Method 04/29/24 21:21 37.4 C 78 18 121/73 96 Room Air (1) GI bleed GI bleed type/associated pathology: melena Qualified Code(s): K92.1 - Melena
[2024-04-30 08:31] LABS: BUN Creatinine Ratio 26.2 (10-20); Calcium 8.8 mg/dl (8.6-10.3)
[2024-04-30 08:33] LABS: ANTI-Xa, UFH(UnfractionatedHep 0.45 IU/ml (0.3-0.7); INR 1.4 (0.9-1.1); Prothrombin Time 14.6 Seconds (9.0-12.0)
--- NOTE | 2024-04-30 10:34 | Gastroenterology Progress Note ---
Date of Service April 30, 2024 Assessment & Plan (1) Melena: Plan: 83 year old female with history of HTN, mechanical aortic valve replacement approximately 30 years ago on warfarin, glaucoma, CKD-3 admitted w/ black stools s/p S/P EGD x 3 and colonoscopy w/ evidence of nonbleeding duodenal ulcer retreated w/ bipolar cautery and a single bleeding angiodysplastic lesion in the duodenum treated with bipolar cautery. Given mechanical valve, she was started on heparin gtt, HGB has remained stable at 9.6 and brown stools are documented. Transitioned to Coumadin given tolerance of heparin. Offers no concerns this AM. - GI will sign off - Trend H&H - Monitor GI output - Transfuse PRN per primary team - Smoking cessation encouraged - No NSAIDs - Avoid diclofenac gel - Pantoprazole 40 mg twice daily Recall GI as needed. Thank you for allowing us to participate in the care of this patient. Please call with any acute changes, questions or concerns. Please see addendum below with additional recommendation from my supervising physician. I spent a total of 40 minutes on the date of service in review of patient's record, and previously obtained information in person and appropriate medical visit, discussion and education of plan, with patient and/or caregiver, placing orders for tests/referral/procedures as medically necessary and documentation of pertinent clinical information in patient's medical records for their visit today. Admission and Anticipated Discharge Date Admission Date: April 23, 2024 Subjective Pt was seen and evaluated, chart reviewed. Offers no concerns this AM. Documented is a brown stools. HGB stable. Review of Systems Review of Systems: All other findings negative except as noted in HPI. Physical Exam Constitutional: WD/WN, vitals as above Respiratory: normal respiratory effort, lungs clear to auscultation Cardiovascular: Rate/Rhythm: regular rate and regular rhythm Gastrointestinal (Abdomen): normal bowel sounds, soft, nontender, no hepatosplenomegaly Skin: no rashes, warm and dry Results & Data Results & Data Vital Signs (Past 12 Hours) Vital Signs Temp Pulse Pulse Resp BP Pulse Ox O2 Del Method 04/30/24 08:30 Room Air 04/30/24 08:27 83 16 131/74 98 Room Air 04/30/24 08:05 98.1 F 82 16 97/50 L 95 Room Air Laboratory Results 04/30/24 04/30/24 Range/Units 07:54 07:50 WBC Pending RBC Pending Hgb Pending Hct Pending MCV Pending MCH Pending MCHC Pending Plt Count Pending PT 14.6 H (9.0-12.0) Seconds INR 1.4 H (0.9-1.1) Heparin Anti-Xa, Unfract 0.45 (0.3-0.7) IU/ml Sodium 138 (136-145) mmol/L Potassium 4.0 (3.5-5.1) mmol/L Chloride 109 H (98-107) mmol/L Carbon Dioxide 22 (21-32) mmol/L Anion Gap 7 (3-11) BUN 44 H (6-23) mg/dl Creatinine 1.68 H (0.6-1.2) mg/dl Est Cr Clr Drug Dosing 24.0 ml/min eGFR 29.62 BUN/Creatinine Ratio 26.2 H (10-20) Glucose 111 H (70-99(Fasting)) mg/dl Calcium 8.8 (8.6-10.3) mg/dl PG Care Time/CCT Total # of Minutes Spent Total Time Spent with Patient: Total time spent is greater than 50% in coordination of care (as documented) at patient's floor/unit and/or counseling patient: Coding Level of Care Code 80055 SUB INP/OBS CARE 2/35MIN Diagnoses Melena K92.1
[2024-04-30 10:47] LABS: Hematocrit (blood only) 27.1 % (37.0-47.0); Hemoglobin 8.4 g/dl (12.0-16.0); Mean Platelet Volume 10.3 fL (9.4-12.4); Platelet Count 288 K/uL (130-400); RDW Coefficient of Variation 21.1 % (11.5-14.5); RDW Standard Deviation 76.3 fL (36.4-46.3); Red Blood Count 2.71 M/uL (4.20-5.40); White Blood Count 7.44 K/ul (4.8-10.8)
--- NOTE | 2024-04-30 12:00 | Discharge Summary ---
Date of Service April 30, 2024 Admission HPI Per Admitting Provider Patient is an 83-year-old female with past medical history of hypertension, CKD, s/p mechanical aortic valve on Coumadin, frequent hospitalizations. She was discharged discharged 04/07 due to acute encephalopathy for CVA. She was at [facility] until April 18 in which she returned home alone. She presents today due to vomiting and diarrhea that began multiple days ago, she reported an episode of dark stool the morning of 04/22. She is being admitted for potential GI bleed, UTI, and possible metabolic encephalopathy. With frequent hospitalizations and living at home alone, patient may benefit from nursing f acility placement. Patient seen at bedside, she stated her symptoms have been going on for few days. She was doing well at home after being discharged from [facility]. She has been unable to eat or drink because things seem to have no flavor and she seems to just throw it up. She has taken Tylenol to help with this. She also endorses sweats, dyspnea, body aches, dizziness, and chest tightness. She stated she had 1 episode of dark diarrhea 04/22 AM. She lives at home alone and did not have outpatient follow-up after recent hospitalization. She stated she did take her home medications yesterday, will be due for her a.m. medications this morning. She is unsure if she is still on warfarin. She wishes to be DNR/DNI at this time. Admission Exam Per Admitting Provider The patient is awake, alert and oriented 3, well developed and well nourished, normocephalic and atraumatic, in no acute distress. Non-toxic appearing. HEENT- EOMI, mucous membranes dry. Hearing grossly intact. Heart-normal S1 and S2. No murmurs, rubs or gallops. Lungs-clear bilaterally, no respiratory distress, no accessory muscle use. Abdomen-normal bowel sounds and soft. No ascites noted. Non-tender. Extremities- no clubbing, cyanosis, or edema. Principal Diagnosis upper GI bleed Discharge Exam Constitutional: no acute distress, lethargic HEENT: NCAT, no conjunctival injection CV: extremities well-perfused, no LE edema Resp: no increased work of breathing GI: nondistended MSK: no gross deformities Skin: warm, dry, no rash appreciated Neuro: alert, oriented, no focal neurologic deficit appreciated Discharge Data Allergies Allergy/AdvReac Type Severity Reaction Status Date / Time No Known Allergies Allergy Verified 04/24/24 16:27 Consultations 04/23/24 04:18 ED Decision to Admit Stat 04/23/24 06:37 Consult Gastroenterology Routine Procedures Performed Operation Date: 04/24/24 16:45 Actual Procedures p EGD Hemostasis - Zackery Dumont MD Ordered Studies 04/26/24 11:23 MRI Brain [MR brain wo con] Routine Hospital Course (1) GI bleed: (2) Anemia: (3) UTI (urinary tract infection): (4) Acute diarrhea: (5) Leukocytosis: (6) CKD (chronic kidney disease) stage 3, GFR 30-59 ml/min: (7) Hypertension: (8) Hyperkalemia: (9) HTN (hypertension) with goal to be determined: (10) Pressure ulcer: Plan Patient is an 83-year-old female with past medical history of hypertension, CKD, and s/p mechanical aortic valve on Coumadin. She was discharged 04/07 after being admitted d/t acute encephalopathy. She was at [facility] until April 18 at which time she returned home independently. She presented this admission due to vomiting and diarrhea that began a few days prior to admission (04/23) with associated melena starting 04/22. 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 s/p 2 units PRBC 04/24 - Hgb since stable, within goal range > 8 Iron studies suggestive of mixed AIREL and anemia of chronic disease Continue Protonix 40 mg PO twice daily, Pepcid 20 mg, and Carafate QID H/o Mechanical aortic valve replacement, on chronic anticoagulation with Warfarin: - Warfarin held initially due to GI bleed - restarted 04/27 - INR 04/30 1.4 - Increase Warfarin to 6mg daily at time of discharge, recommend up-titrating Q2-3 days based on serial INRs until therapeutic with INR 2.5-3.5 - Until INR within therapeutic range, bridge with Lovenox, renally adjusted dose 70mg once daily. GERSON on CKD - AM Cr again bumped to ~1.7 (baseline ~1.25) - continue to monitor BMPs, ensure adequate fluid intake. L Buttock Ulcer: - Wound care consulted, discharge instructions: cleanse are, dust left buttock wound with stoma powder. Cover with barrier cream, reapply as needed to protect area. No pillow under buttocks, turn at least every 2 hours. Blurred Vision - 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, a/w Glaucoma - Upon records review, R eye visual blurring appears chronic in nature - MRI Brain unremarkable - Recommend outpatient f/u w/ Ophthalmology to determine stability of glaucoma UTI - Resolved - Urine culture grew E coli resistant to cipro and levo - status post treatment with abx x7 days Hyperkalemia - Resolved - suspect secondary to GI bleed Leukocytosis - Resolved - secondary to prior diarrhea vs UTI vs hemoconcentration Chronic Conditions HTN - continue metoprolol, amlodipine, lasix, lisinopril Weakness, deconditioning - Discharged to [facility] - continue PT/OT Shoulder pain/ OA - Voltaren gel held per GI recommendation; may use tylenol PRN, lidocaine patch Total Time Total Time Spent Total Time Spent (In Minutes): see attending attestation Discharge Plan Discharge Items Patient Disposition[facility] Reason For Visit: GI BLEED, UTI Discharge Diagnosis: GI bleed Activity: As commented below Activity Comment: activity progression as directed by PT/OT Non-emergency contact: Primary Care Provider Call non-emergency contact if: you have any medication questions and your symptoms worsen Follow-up/Referrals: Song Pritchard CRNP [Primary Care Provider] - Diet: Heart Healthy Addtl Attending Provider Instructions: Patient is an 83-year-old female with past medical history of hypertension, CKD, and s/p mechanical aortic valve on Coumadin. She was discharged 04/07 after being admitted d/t acute encephalopathy. She was at [facility] until April 18 at which time she returned home independently. She presented this admission due to vomiting and diarrhea that began a few days prior to admission (04/23) with associated melena starting 04/22. 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 GERSON on CKD - AM Cr again bumped to ~1.7 (baseline ~1.25) - continue to monitor BMPs, ensure adequate fluid intake. L Buttock Ulcer: - Wound care consulted, discharge instructions: cleanse are, dust left buttock wound with stoma powder. Cover with barrier cream, reapply as needed to protect area. No pillow under buttocks, turn at least every 2 hours. Blurred Vision - 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, a/w Glaucoma - Upon records review, R eye visual blurring appears chronic in nature - MRI Brain unremarkable - Recommend outpatient f/u w/ Ophthalmology to determine stability of glaucoma UTI - Resolved - Urine culture grew E coli resistant to cipro and levo - status post treatment with abx x7 days Hyperkalemia - Resolved - suspect secondary to GI bleed Leukocytosis - Resolved - secondary to prior diarrhea vs UTI vs hemoconcentration Chronic Conditions HTN - continue metoprolol, amlodipine, lasix, lisinopril Weakness, deconditioning - Discharged to [facility] - continue PT/OT Shoulder pain/ OA - Voltaren gel held per GI recommendation; may use tylenol PRN, lidocaine patch Pending Studies at Discharge: No Stand-Alone Forms: My [facility] Skilled Items Patient informed of condition?: Yes DNR: Yes Discharge Level of Care: Skilled Communicable Disease: No Discharge Prognosis: Stable Lines: None Urinary Catheter: No Medications and DC Order Prescriptions: New sucralfate 100 mg/mL Suspension 1 g PO QID Qty: 1000 0RF famotidine 20 mg Tablet 20 mg PO DAILY 30 Days Qty: 30 0RF pantoprazole 40 mg Tablet,Delayed Release (Dr/Ec) 40 mg PO BID Qty: 30 0RF warfarin 5 mg Tablet 6 mg PO DAILY@1600 30 Days Qty: 30 0RF enoxaparin [Lovenox] 80 mg/0.8 mL syringe 70 mg subcut DAILY Qty: 8 2RF Rx Instructions: continue daily Lovenox bridge until INR therapeutic 2.5-3.5 Continued lisinopril 10 mg tablet 10 mg PO DAILY Qty: 90 3RF furosemide 20 mg tablet 20 mg PO DAILY Qty: 90 3RF (DME) Shower Chair Misc See Rx Instructions .Route Qty: 1 0RF Rx Instructions: As directed, bench that extends from outside to inside of tub latanoprost 0.005 % Drops 1 drp OPB PM Rx Instructions: both eyes metoprolol succinate 25 mg tablet extended release 24 hr 12.5 mg PO QAM dorzolamide 2 % drops 0 drp OPB BID Rx Instructions: Last filled 01/05/24 x50 day supply. Original Directions: 1 drop into both eyes twice daily brimonidine 0.2 % drops 0 drp OPB TID Rx Instructions: Last filled 02/14/24 x16 day supply. Original Directions: 1 drop into both eyes TID tramadol 50 mg tablet 50 mg PO TID PRN (Reason: pain) Qty: 0 0RF amlodipine 2.5 mg tablet 5 mg PO QAM gabapentin 100 mg capsule 0 mg PO HS Rx Instructions: Unable to verify at this date/time. Original Directions: 200mg by mouth at bedtime. gabapentin 100 mg capsule 0 mg PO DAILY@0700,1300 Rx Instructions: Unable to verify at this date/time. Original Directions: 100mg by mouth twice daily Discontinued diclofenac sodium [Arthritis Pain (diclofenac)] 1 % gel 2 g topical QID PRN (Reason: Pain) Rx Instructions: Unable to verify OTC meds at this date/time. Apply to single elbow, wrist or hand; for hand includes palm/fingers/back of hand warfarin 5 mg tablet See Rx Instructions .ROUTE .COMPLEX Rx Instructions: Per pharmacy, directions are 5mg on Sun/Tues/Thurs and 10mg all other days. Unable to verify if pt still taking medication this way. Discharge Orders: Discharge Order (Routine); Ordered 04/30/24 Ordered By: Bret Fuller Admission Data Admit Date/Time: 04/23/24 04:57 Attending Provider: Malcolm Douglas Admit Provider: Remi Wild Primary Care Provider: Song Pritchard Other Providers: Remi Wild; Zackery Dumont; [facility]; Jillian Claire; [facility] [place] Other Interventions: Discharge Summary Assessment (RN) Last Done: 04/30/24 13:14 Supervising Physician Co-Signing Physician Notes Attending attestation Pt seen and examined in concert with Dr. Fuller. In agreement with the documented findings as noted in the resident documentation with any exceptions or additions as noted here. Ongoing weakness stable to mildly improved per patient. On examination, S1/S2 nl RRR, 2-3/6 LEMUEL. CTAB. Abd NT/ND BS+ve Acute blood loss anemia 2/2 upper GI bleed s/p EGD and cautery - stable hemoglobin. Recommend close monitoring in outpatient setting while anticoagulation adjusts. Aortic valve replacement - transitioned from heparin to Lovenox bridge while INR adjusted to goal of 2.5, to continue in outpatient with next recheck tomorrow. Urinary tract infection - completed course of treatment Blurry vision - chronic visual deficit, agree w/ outpatient evaluation as noted Superficial wound of the buttock, present on admission - wound care ongoing following discharge. Else see resident documentation as noted. Total attending physician time spent with this patient's care on the day of discharge: 35 minutes.
[2024-04-30 15:19] VITALS: BP 91/58; PULSE 71; RESP 18; TEMP 98.2; O2SAT 97
--- NOTE | 2024-05-01 14:07 | Coding Query ---
PRESSURE ULCER DOCUMENTATION To promote full compliance with coding requirements relating to patient care, physician participation is requested in all cases of extraction operator uncertainty. Please assist us with the question(s) below: Please specify the known or suspected type by placing an "X" within the parenthesis (x). A pressure ulcer of the (SUTURE WINDER HAND INSERT SITE) Left Buttock / / Wound Care Nurse consulted If possible, please check the box that provides the specific stage of the pressure ulcer x( ) Stage I ( ) Stage II ( ) Stage III ( ) Stage IV ( ) Unstageable Was the pressure ulcer present on admission? Please check the appropriate box for the pressure ulcer: (x ) Present on admission ( ) Not present on admission ( ) Unable to be clinically determined Thank you [facility] Rob[facility]
== END 2024-04-30 15:46 | DRG 378 ==
LOC: SUATTDRO → ED 02:39 → SUATTDRO 04:57 → 3W 04:57

== ENCOUNTER 2024-05-27 10:51 | Inpatient (IN) ==
[2024-05-27 12:05] LABS: Basophils # (auto) 0.04 K/uL (0.00-0.20); Basophils % (auto) 0.6 %; Eosinophils # (auto) 0.23 K/uL (0.00-0.50); Eosinophils % (auto) 3.5 %; Hematocrit (blood only) 42.4 % (37.0-47.0); Hemoglobin 13.1 g/dl (12.0-16.0); Immature Granulocytes # (auto) 0.02 K/uL (0.01-0.20); Immature Granulocytes % (auto) 0.3 %; Lymphocytes # (auto) 1.01 K/uL (1.20-3.40); Lymphocytes % (auto) 15.2 %; Mean Corpuscular Hemoglobin 30.8 pg (25.0-34.0); Mean Corpuscular Hgb Conc 30.9 g/dL (32.0-36.0); Mean Corpuscular Volume 99.8 fL (80.0-100.0); Mean Platelet Volume 9.5 fL (9.4-12.4); Monocytes # (auto) 0.33 K/uL (0.11-0.59); Neutrophils # (auto) 5.03 K/uL (1.40-6.50); Neutrophils % (auto) 75.4 %; Platelet Count 308 K/uL (130-400); RDW Coefficient of Variation 20.2 % (11.5-14.5); RDW Standard Deviation 74.4 fL (36.4-46.3); Red Blood Count 4.25 M/uL (4.20-5.40); White Blood Count 6.66 K/ul (4.8-10.8)
[2024-05-27] MEDS: METOCLOPRAMIDE HCL INJ 5 MG/ML 2 ML VIAL IV ONE (12:05)
--- NOTE | 2024-05-27 12:19 | XRay Report ---
XR chest 1V portable CLINICAL HISTORY: weakness COMPARISON STUDY: 04/03/2024 FINDINGS: Cardiomegaly is persistent. Pulmonary vascular congestion is also persistent although less pronounced than the prior study. There is a groundglass airspace opacity in the right lung base is a new finding. Severe arthritis is noted in both shoulder joints. IMPRESSION: Mild congestive heart failure is persistent. Right basal infiltrate could be infectious or aspiration. ACT 112: Negative or not required by law. Electronically signed by: Jena Mcelroy M.D. 05/27/2024 12:17 PM
[2024-05-27 12:21] LABS: INR 1.9 (0.9-1.1); Partial Thromboplastin Ratio 1.7; Partial Thromboplastin Time 45 Seconds (21-31); Prothrombin Time 19.3 Seconds (9.0-12.0)
--- NOTE | 2024-05-27 12:23 | CT Scan Report ---
CT OF THE HEAD WITHOUT CONTRAST CLINICAL HISTORY: weak, dizzy, warfarin, [place] COMPARISON STUDY: Head CT April 03, 2024. CT DOSE: 625.8 mGy.cm TECHNIQUE: Helical axial images of the head were obtained without IV contrast. Automated exposure con trol was utilized for the study. A dose lowering technique was utilized adhering to the principles o f ALARA. FINDINGS: No acute intracranial hemorrhage, midline shift or mass effect is present. White matter hyp odensities are unchanged and favor small vessel disease. The ventricular system is unremarkable. The basal cisterns are patent. No extra-axial collections are present. There are no findings to suggest a cute dural sinus thrombosis or acute territorial infarct. No significant calvarial abnormalities are present. Visualized portions of the sinuses and mastoid air cells are clear. IMPRESSION: No acute intracranial findings. No change in appearance of the brain. ACT 112: Negative or not required by law. Electronically signed by: Nathanael Yip M.D. 05/27/2024 12:21 PM
[2024-05-27 12:30] LABS: Anisocytosis Present
[2024-05-27 12:32] LABS: Albumin Level 4.5 gm/dl (3.4-5.0); Bilirubin,Total 0.6 mg/dl (0.2-1.0); Calcium 10.1 mg/dl (8.6-10.3); Magnesium 2.3 mg/dl (1.7-2.4); Potassium 4.3 mmol/L (3.5-5.1)
--- NOTE | 2024-05-27 12:34 | Electrocardiogram Report ---
Test Reason : Blood Pressure : */* mmHG Vent. Rate : 98 BPM Atrial Rate : 98 BPM P-R Int : 192 ms QRS Dur : 142 ms QT Int : 386 ms P-R-T Axes : 77 47 49 degrees QTcB Int : 492 ms Sinus rhythm with Premature atrial complexes Right bundle branch block Abnormal ECG When compared with ECG of 23-Apr-2024 13:49, Premature atrial complexes are now Present Confirmed by Malcolm Freire ([id number]) on 05/27/2024 12:34:10 PM Referred By: REFERRED SELF Confirmed By: Malcolm Freire
[2024-05-27 12:38] LABS: BUN Creatinine Ratio 14.4 (10-20); Creatinine Clr Calc Pharmacy 33.6 ml/min; Globulin 4.6 gm/dl (2.5-4.0); Total Protein 9.1 gm/dl (6.0-8.3)
[2024-05-27 12:42] LABS: Troponin I High Sensitivity 16.4 pg/ml (0-14)
[2024-05-27 12:48] LABS: Adenovirus PCR Not Detected (NotDetected); Bordetella parapertussis PCR Not Detected (NotDetected); Bordetella pertussis PCR Not Detected (NotDetected); Chlamydia pneumoniae PCR Not Detected (NotDetected); Coronavirus 229E PCR Not Detected (NotDetected); Coronavirus CoV-2 (COVID19)PCR Not Detected (NotDetected); Coronavirus HKU1 PCR Not Detected (NotDetected); Coronavirus NL63 PCR Not Detected (NotDetected); Coronavirus OC43PCR Not Detected (NotDetected); Human Metapneumovirus PCR Not Detected (NotDetected); Influenza A PCR Not Detected (NotDetected); Influenza B PCR Not Detected (NotDetected); Mycoplasma pneumoniae PCR Not Detected (NotDetected); Parainfluenza Virus 1 PCR Not Detected (NotDetected); Parainfluenza Virus 2 PCR Not Detected (NotDetected); Parainfluenza Virus 3 PCR Not Detected (NotDetected); Parainfluenza Virus 4 PCR Not Detected (NotDetected); Respiratory Syncytial VirusPCR Not Detected (NotDetected); Rhinovirus/Enterovirus PCR Not Detected (NotDetected)
[2024-05-27 12:51] LABS: Thyroid Stimulating Hormone 2.18 uIu/ml (0.300-4.500)
--- NOTE | 2024-05-27 12:54 | Emergency Department Note ---
Impression & Plan Generalized weakness, Pneumonia, Subtherapeutic anticoagulation ED Provider Note Provider: Juan Mock MD CHIEF COMPLAINT: Headache, weakness, nausea HISTORY OF PRESENT ILLNESS: Patient is a 83-year-old female history of past medical history of hypertension, CKD, mechanical valve on Coumadin, CVA, GI bleed presenting here today reporting developing some head and neck pain yesterday with nausea with generalized weakness. Try to get out of bed this morning and felt very unstable and got back in the bed. Feels a bit dizzy. No new numbness or tingling. Maybe a few body aches but no significant chest pain or abdominal pain. Maybe a little short of breath but minimal. Did take her evening meds but not her meds today as she felt nauseous. No syncope or falls. PAST MEDICAL HISTORY: As noted above MEDICATIONS: Reviewed home medications includes warfarin SOCIAL HISTORY: Lives at home, family assist her nearby PHYSICAL EXAM: GENERAL: alert and oriented in no acute distress on stretcher fatigued in appearance Head: normocephalic and atraumatic EYES: No injection, discharge or icterus. PERRL, EOMI. NECK: Trachea midline. Supple. ENT: Mucous membranes pink and moist. LUNGS: Airway patent. No retractions. Breath sounds clear HEART: Regular rate and rhythm. No chest wall tenderness ABDOMEN: Soft and non-tender, without guarding or rebound. SKIN: Acyanotic, warm, dry, without rashes EXTREMITIES: With significant deformity trace swelling of the lower legs with mild tenderness to the bilateral lower legs. NEUROLOGICAL: No focal deficits. No aphasia. No facial droop or slurred speech. Normal strength and tone in the extremities. Sensation to gross touch normal. Ambulatory. EK bpm sinus rhythm with PACs and right bundle branch block. No acute ST segment elevation or depression with a QTc of 492. CONTINUOUS CARDIAC MONITORING: was ordered and showed a heart rate of 90s-100s bpm in sinus rhythm occasional PACs Patient's laboratory studies and imaging reviewed. Differential includes Infection, dehydration, metabolic abnormality, hypo/hyperglycemia, electrolyte disturbance, anemia, hypoxia, cardiac sources, intracerebral event, toxicologic, neurologic, as well as other pathologies. IMPRESSION/MEDICAL DECISION MAKING: Anticoagulated with headache and nausea on Coumadin. No falls or syncope reported. No new focal deficits. Difficulty taking oral medications and concerned given her warfarin therapy for mechanical valve for either high or low INR's. Generalized weakness and malaise but fairly benign abdomen on exam. Doubt acute intra-abdominal pathology. Surprisingly blood work here without significant anemia or leukocytosis at this time. INR subtherapeutic at 1.9. CKD stable with creatinine 1.25 no other severe electrolyte abnormalities. No evidence concerning for hepatitis. Troponin is 16 not far previous without severely elevated procalcitonin normal TSH. Surprisingly negative respiratory viral panel. Chest x-ray questions maybe some fluid overload and possible right basilar infiltrate. Does not appear severely fluid overloaded on clinical exam only mild swelling of the lower extremities. CT of the head per report without acute findings. Do question infectious etiology and with a negative respiratory viral panel and questionable x-ray well not hypoxic without significant leukocytosis will cover with a dose of antibiotics here. Will bring in for further therapy here given her generalized weakness with this as well as further anticoagulation with her subtherapeutic INR with her mechanical heart valve. Heparin drip ordered (given her CKD and recent significant GI bleed). Discussed with patient she is agreeable this plan. Urinalysis ordered and pending as well to exclude urinary tract infection. Hospitalist team contacted. DIAGNOSIS: Weakness, right lower lobe pneumonia, nausea, subtherapeutic INR, mechanical heart valve DISPOSITION: Hospitalist will evaluate Patient was agreeable with this plan. Past Med/Surg History Problem List (Updated 05/27/24 @ 17:46 by Juan Mock M.D.) Subtherapeutic anticoagulation (Acute) Generalized weakness (Acute) Pneumonia (Acute) Pressure ulcer Anemia Cerebral microvascular disease (Acute) Acute confusion (Acute) Acute hyperkalemia (Acute) GERSON (acute kidney injury) (Acute) Encephalopathy acute (Acute) Diverticulitis (Acute) Chronic back pain Glaucoma CKD (chronic kidney disease) stage 3, GFR 30-59 ml/min HTN (hypertension) with goal to be determined On warfarin therapy Medical History Current every day smoker On warfarin therapy Surgical History H/O mechanical aortic valve replacement Family History Brother Hypertension Heart disease Sister Hypertension Heart disease Mother Hypertension Heart disease Myocardial infarction Father Hypertension Heart disease Denies family history of Ovarian cancer Prostate cancer Breast cancer Lung cancer Colorectal cancer Stroke Social History Smoking Status: Former smoker Tobacco Type: Cigarettes Age Started Using Tobacco: 38; packs per day: 0.50; Cigarettes Per Day: 0.5 pack; Second Hand Exposure: No; Do You Dip or Chew Tobacco: No; Hx Alcohol Use: No Hx Substance Use: No Preferred Language: [place] Communication Ability: Effective Visual Impairment: Limited Hearing Ability: Normal Inventory Auditor Required: No Beliefs That Will Affect Care: None marital status: / Current Living Situation: Alone Current Living Situation Comment: [employer] current occupational status: retired How many Children do You have: 4 Feels Safe at Home: Yes Childhood Exposure to Second-Hand Smoke: Yes Diet: low salt caffeine: Yes Dental Care, Regularly: No Physical Activity Frequency: Does not Exercise Seatbelt Use: always Sunscreen Use: No Assistive Devices: Walker Allergies Allergies Allergy/AdvReac Type Severity Reaction Status Date / Time No Known Allergies Allergy Verified 04/24/24 16:27 Home Meds Home Medications Medication Instructions Recorded Confirmed latanoprost 0.005 % eye drops 1 drp OPB PM 07/31/23 05/27/24 brimonidine 0.2 % eye drops 1 drp OPB UD 03/18/24 05/27/24 dorzolamide 2 % eye drops 1 drp OPB UD 03/18/24 05/27/24 metoprolol succinate 25 mg 12.5 mg PO QAM 03/18/24 05/27/24 tablet,extended release 24 hr amlodipine 2.5 mg tablet 5 mg PO QAM 04/04/24 05/27/24 gabapentin 100 mg capsule 100 mg PO DAILY@0700,1300 05/21/24 05/27/24 gabapentin 100 mg capsule 200 mg PO HS 05/21/24 05/27/24 warfarin 5 mg tablet 6 mg PO DAILY@1600 05/21/24 05/27/24 Previous Rx's Medication Instructions Recorded furosemide 20 mg tablet 20 mg PO DAILY #90 tabs 08/20/23 lisinopril 10 mg tablet 10 mg PO DAILY #90 tabs 10/30/23 Shower Chair #1 ea 11/20/23 tramadol 50 mg tablet 50 mg PO TID PRN pain #0 tabs 03/30/24 famotidine 20 mg tablet 20 mg PO DAILY 30 days #30 tabs 04/30/24 pantoprazole 40 mg tablet,delayed 40 mg PO BID #30 tabs 04/30/24 release sucralfate 100 mg/mL oral 1 g (10 mL) PO QID #1,000 mL 04/30/24 suspension Results & Data (ED) Vital Signs Vital Signs - 24 hr 05/27/24 10:38 05/27/24 10:38 05/27/24 10:38 Temperature 36.9 C Temperature Source Oral Pulse Rate 100 H Pulse Rate [Apical] Respiratory Rate 16 18 Blood Pressure 187/101 H Blood Pressure [Right Arm] Blood Pressure Mean 129 Blood Pressure Mean [Right Arm] Pulse Oximetry 93 Oxygen Delivery Method Room Air Sepsis Recent Fever Within 48 Hours No Sepsis New/Unexplained Change in Mental Status N/A Sepsis Action Taken by Nursing No Action Required 05/27/24 11:07 05/27/24 11:50 05/27/24 14:00 Temperature Temperature Source Pulse Rate 98 H Pulse Rate [Apical] 102 H Respiratory Rate 20 Blood Pressure Blood Pressure [Right Arm] 182/118 H Blood Pressure Mean Blood Pressure Mean [Right Arm] 139 Pulse Oximetry 97 94 Oxygen Delivery Method Room Air Room Air Sepsis Recent Fever Within 48 Hours Sepsis New/Unexplained Change in Mental Status Sepsis Action Taken by Nursing 05/27/24 14:30 Temperature Temperature Source Pulse Rate 92 H Pulse Rate [Apical] Respiratory Rate 20 Blood Pressure 167/115 H Blood Pressure [Right Arm] Blood Pressure Mean 130 Blood Pressure Mean [Right Arm] Pulse Oximetry 98 Oxygen Delivery Method Room Air Sepsis Recent Fever Within 48 Hours Sepsis New/Unexplained Change in Mental Status Sepsis Action Taken by Nursing Laboratory Data 05/27/24 11:15 05/27/24 11:15 Lab Results 05/27/24 05/27/24 05/27/24 Range/Units 11:00 11:15 13:50 WBC 6.66 (4.8-10.8) K/ul RBC 4.25 (4.20-5.40) M/uL Hgb 13.1 (12.0-16.0) g/dl Hct 42.4 (37.0-47.0) % MCV 99.8 (80.0-100.0) fL MCH 30.8 (25.0-34.0) pg MCHC 30.9 L (32.0-36.0) g/dL RDW Std Deviation 74.4 H (36.4-46.3) fL RDW Coeff of Xavier 20.2 H (11.5-14.5) % Plt Count 308 (130-400) K/uL MPV 9.5 (9.4-12.4) fL Immature Gran % (Auto) 0.3 % Neut % (Auto) 75.4 % Lymph % (Auto) 15.2 % Andrew % (Auto) 5.0 % Eos % (Auto) 3.5 % Baso % (Auto) 0.6 % Neut # (Auto) 5.03 (1.40-6.50) K/uL Lymph # (Auto) 1.01 L (1.20-3.40) K/uL Andrew # (Auto) 0.33 (0.11-0.59) K/uL Eos # (Auto) 0.23 (0.00-0.50) K/uL Baso # (Auto) 0.04 (0.00-0.20) K/uL Immature Gran # (Auto) 0.02 (0.01-0.20) K/uL Anisocytosis Present PT 19.3 H (9.0-12.0) Seconds INR 1.9 H (0.9-1.1) APTT 45 H (21-31) Seconds PTT Ratio 1.7 Sodium 140 (136-145) mmol/L Potassium 4.3 (3.5-5.1) mmol/L Chloride 108 H (98-107) mmol/L Carbon Dioxide 22 (21-32) mmol/L Anion Gap 10 (3-11) BUN 18 (6-23) mg/dl Creatinine 1.25 H (0.6-1.2) mg/dl Est Cr Clr Drug Dosing 33.6 ml/min eGFR 42.24 BUN/Creatinine Ratio 14.4 (10-20) Glucose 93 (70-99(Fasting)) mg/dl Calcium 10.1 (8.6-10.3) mg/dl Magnesium 2.3 (1.7-2.4) mg/dl Total Bilirubin 0.6 (0.2-1.0) mg/dl AST 24 (13-39) U/L ALT 15 (7-52) U/L Alkaline Phosphatase 132 H (34-104) U/L Troponin I High Sens 16.4 H (0-14) pg/ml Total Protein 9.1 H (6.0-8.3) gm/dl Albumin 4.5 (3.4-5.0) gm/dl Globulin 4.6 H (2.5-4.0) gm/dl Albumin/Globulin Ratio 1.0 (0.9-2) Procalcitonin 0.06 (0-0.5) ng/ml TSH 2.180 (0.300-4.500) uIu/ml Urine Color Yellow Urine Appearance Clear (Clear) Urine pH 7.5 (4.5-7.5) Ur Specific [facility] 1.013 (1.000-1.030) Urine Protein 2+ H (Negative) Urine Glucose (UA) Negative (Negative) Urine Ketones Negative (Negative) Urine Blood Trace H (Negative) Urine Nitrite Negative (Negative) Urine Bilirubin Negative (Negative) Urine Urobilinogen Negative (Negative) Ur Leukocyte Esterase Trace H (Negative) Urine WBC (Auto) 0-5 (0-5) /hpf Urine RBC (Auto) 0-2 (0-2) /hpf U Hyaline Cast (Auto) 0-2 (0-2) /lpf U Epithel Cells (Auto) 0-2 (0-2) /hpf Urine Bacteria (Auto) 3+ H (None Seen) Adenovirus (PCR) Not Detected (NotDetected) B. pertussis DNA (PCR) Not Detected (NotDetected) B.parapertussis DNA PCR Not Detected (NotDetected) C. pneumoniae DNA (PCR) Not Detected (NotDetected) Coronavirus OC43 (PCR) Not Detected (NotDetected) Coronavirus HKU1 (PCR) Not Detected (NotDetected) Coronavirus 229E (PCR) Not Detected (NotDetected) SARS-CoV-2 (PCR) Not Detected (NotDetected) Coronavirus NL63 (PCR) Not Detected (NotDetected) Human Metapneumovir PCR Not Detected (NotDetected) Influenza Type A (PCR) Not Detected (NotDetected) Influenza Type B (PCR) Not Detected (NotDetected) M. pneumoniae (PCR) Not Detected (NotDetected) Parainfluenza 1 (PCR) Not Detected (NotDetected) Parainfluenza 2 (PCR) Not Detected (NotDetected) Parainfluenza 3 (PCR) Not Detected (NotDetected) Parainfluenza 4 (PCR) Not Detected (NotDetected) RSV (PCR) Not Detected (NotDetected) Entero/Rhino (PCR) Not Detected (NotDetected) Administered Medications Heparin Sodium/Dextrose (Heparin 64310 Unit/500 Ml D5w) 25,000 units in 500 mls @ 23 mls/hr IV .[id number] [facility]; Protocol Stop: 06/26/24 14:14 Last Admin: 05/27/24 14:41 Dose: 1,150 units/hr, 23 mls/hr Documented By: QGV Co-signed By: ABISAI Discontinued Medications Azithromycin (Azithromycin 250 Mg Tab) 500 mg PO NOW ONE Stop: 05/27/24 16:42 Last Admin: 05/27/24 17:20 Dose: 500 mg Documented By: QGV Heparin Sodium (Porcine) (Heparin Sod (Porcine) 1000 Unit/Ml) 5,000 units IV NOW ONE Stop: 05/27/24 14:31 Last Admin: 05/27/24 14:40 Dose: 5,000 units Documented By: QGV Co-signed By: ABISAI Heparin Sodium/Dextrose (Heparin Iv Adult Wt-Based Standard W/ Initial Bolus Protocol) 1 each IV NOW STA; Protocol Stop: 05/27/24 13:53 Last Admin: 05/27/24 14:41 Dose: Not Given Documented By: QGV Ceftriaxone Sodium (Rocephin) 2,000 mg in 50 mls @ 100 mls/hr IV NOW STA Stop: 05/27/24 14:16 Last Infusion: 05/27/24 14:43 Dose: Infused Documented By: Admin: 05/27/24 14:14 Dose: 100 mls/hr Documented By: QGV Acetaminophen (Ofirmev) 1,000 mg in 100 mls @ 400 mls/hr IV NOW STA Stop: 05/27/24 16:57 Last Infusion: 05/27/24 17:37 Dose: Infused Documented By: Admin: 05/27/24 17:21 Dose: 400 mls/hr Documented By: QGV Metoclopramide HCl (Metoclopramide Hcl Inj 5 Mg/Ml 2 Ml Vial) 5 mg IV ONE ONE Stop: 05/27/24 11:48 Last Admin: 05/27/24 12:05 Dose: 5 mg Documented By: QGV Imaging Data Radiologist's Impression: Chest X-Ray 05/27/24 11:47 XR chest 1V portable CLINICAL HISTORY: weakness COMPARISON STUDY: 04/03/2024 FINDINGS: Cardiomegaly is persistent. Pulmonary vascular congestion is also persistent although less pronounced than the prior study. There is a groundglass airspace opacity in the right lung base is a new finding. Severe arthritis is noted in both shoulder joints. IMPRESSION: Mild congestive heart failure is persistent. Right basal infiltrate could be infectious or aspiration. ACT 112: Negative or not required by law. Electronically signed by: Jena Mcelroy M.D. 05/27/2024 12:[address] 05/27/24 11:47 CT OF THE HEAD WITHOUT CONTRAST CLINICAL HISTORY: weak, dizzy, warfarin, [place] COMPARISON STUDY: Head CT April 03, 2024. CT DOSE: 625.8 mGy.cm TECHNIQUE: Helical axial images of the head were obtained without IV contrast. Automated exposure control was utilized for the study. A dose lowering technique was utilized adhering to the principles of ALARA. FINDINGS: No acute intracranial hemorrhage, midline shift or mass effect is present. White matter hypodensities are unchanged and favor small vessel disease. The ventricular system is unremarkable. The basal cisterns are patent. No extra-axial collections are present. There are no findings to suggest acute dural sinus thrombosis or acute territorial infarct. No significant calvarial abnormalities are present. Visualized portions of the sinuses and mastoid air cells are clear. IMPRESSION: No acute intracranial findings. No change in appearance of the brain. ACT 112: Negative or not required by law. Electronically signed by: Nathanael Yip M.D. 05/27/2024 12:21 PM Discharge Plan Visit Data Chief Complaint: Weakness ED Provider: Juan Mock Discharge Problem: Generalized weakness, Pneumonia, Subtherapeutic anticoagulation Patient Disposition: Admitted As Inpatient Discharge Instructions Interventions: ED Discharge Assessment Last Done: 05/27/24 17:30
[2024-05-27] MEDS ORDERED: HEPARIN SOD (PORCINE) 1000 UNIT/ML IV ONE (14:09)
[2024-05-27] MEDS: cefTRIAXone SODIUM 2,000 MG/50 ML BAG IV STA (14:14)
[2024-05-27 14:37] LABS: Appearance Urine Clear (Clear); Bacteria Urine Automated 3+ (None Seen); Bilirubin Urine Negative (Negative); Blood Urine Trace (Negative); Cast Urine Automated 0-2 /lpf (0-2); Color Urine Yellow; Epithelial Cell Urine Auto 0-2 /hpf (0-2); Glucose Urine UA Negative (Negative); Ketones Urine Negative (Negative); Leukocyte Esterase Urine Trace (Negative); Nitrite Urine Negative (Negative); Protein Urine 2+ (Negative); Specific Gravity Urine 1.013 (1.000-1.030); Urobilinogen Urine Negative (Negative); WBC Urine Automated 0-5 /hpf (0-5); pH Urine 7.5 (4.5-7.5)
[2024-05-27 14:38] LABS: RBC Urine Automated 0-2 /hpf (0-2)
[2024-05-27] MEDS: HEPARIN SOD (PORCINE) 1000 UNIT/ML IV ONE (14:40)
[2024-05-27] MEDS: Heparin IV Adult Wt-Based Standard w/ INITIAL Bolus Protocol IV STA (14:41)
[2024-05-27] MEDS: HEPARIN 25000 UNIT/500 ML D5W 25,000 UNITS/500 ML BAG IV SCH (14:41)
--- NOTE | 2024-05-27 16:16 | History & Physical Report ---
Date of Service May 27, 2024 Assessment & Plan (1) Pneumonia: (2) Anemia: (3) CKD (chronic kidney disease) stage 3, GFR 30-59 ml/min: (4) HTN (hypertension) with goal to be determined: (5) On warfarin therapy: (6) Generalized weakness: (7) Subtherapeutic anticoagulation: Plan Patient is an 83-year-old female with past medical history of hypertension, CKD, s/p AVR on Warfarin, frequent hospitalizations, hx of GI bleed. here due to generalized weakness and pneumonia. Generalized weakness Pneumonia - Patient with generalized pneumonia, nausea, runny nose and cough for a week, worsen this morning - CXR: Mild congestive heart failure. Right basal infiltrate could be infectious or aspiration - No leukocytosis, normal procalcitonin - Admit to Med/ Telemetry - S/p ED Ceftriaxone - MRSA nares pending - Patient on high risk for HAP due to recent discharge, but clinical picture with non severe PNA, no sepsis, no shock. Concern of aspiration component as well. - Will continue with Ceftriaxone daily - Add Azithromycin for atypical coverage, continue 250 mg daily - CBC am - Aspiration precautions Subtherapeutic INR S/p AVR on Warfarin - INR subtherapeutic range on admission INR 1.9 - Goal 2.5-3.5 - started on Heparin drip - Will monitor for bleeding while transitioning to warfarin - Home dose Warfarin 7.5 mg Sunday, 5 mg daily - Warfarin 5 mg given now on admission - AM INR/ PT UTI: UA: + leukocytes, Esterase Patient asymptomatic - Will continue ceftriaxone as above Follow UA culture Hx of GI bleeding -Recent admission 04/23/2023, received 2 units of PRBCs - Denied melena, hematemesis - EGD 04/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 - Hgb: 13.1, BUN: 18 - Continue Protonix 40 mg BID, Pepcid 20 mg daily CKD - Cr on admission 1.25, her baseline - Monitor BMP - Encourage po intake Chronic stable diagnoses: moderate/extensive chronic microvascular ischemic disease - recent hospitalization with acute metabolic encephalopathy, currently alert and oriented x 3 shoulder pain/ OA - continue Voltaren gel prn HTN: Continue home metoprolol, amlodipine, Lasix and lisinopril FEN: Clear liquids Code status: DNR/DNI DVT ppx: Heprin drip PT/OT consulted Case management: Consulted for placement Dispo: med/surg with telemetry History of Present Illness Primary Care Provider: DARNELL Lemus Patient is an 83-year-old female with past medical history of hypertension, CKD, s/p AVR on Coumadin, frequent hospitalizations, hx of GI bleeding here due to generalized weakness for a week. Patient refers today she woke up feeling worse and more weak than usual. Additionally she had some runny nose, nausea and vomit. She had poor po intake in the last day due to symptoms. She had some sporadic cough as well, no sputum production. She was recently discharge from hospital due to a GI bleeding ( 05/20). Following hospitalization she was sent to [facility] for rehab. She states she was doing well until this week when symptoms started. She lifes alone and take care of herself. Niece help sometimes. She has a hx of AVR on Warfarin. She denied any black stool, or hematemesis. She refers being complaint with her medications. She denied any chest pain, palpitations, SOB, abdominal pain, diarrhea or any other symptoms. No leg edema Allergies Allergy/AdvReac Type Severity Reaction Status Date / Time No Known Allergies Allergy Verified 04/24/24 16:27 Home Medications Medication Instructions Recorded Confirmed Type latanoprost 0.005 % eye drops 1 drp OPB PM 07/31/23 05/27/24 History furosemide 20 mg tablet 20 mg PO DAILY #90 tabs 08/20/23 05/27/24 Rx lisinopril 10 mg tablet 10 mg PO DAILY #90 tabs 10/30/23 05/27/24 Rx Shower Chair #1 ea 11/20/23 05/21/24 Rx brimonidine 0.2 % eye drops 1 drp OPB UD 03/18/24 05/27/24 History dorzolamide 2 % eye drops 1 drp OPB UD 03/18/24 05/27/24 History metoprolol succinate 25 mg 12.5 mg PO QAM 03/18/24 05/27/24 History tablet,extended release 24 hr tramadol 50 mg tablet 50 mg PO TID PRN pain #0 tabs 03/30/24 05/27/24 Rx amlodipine 2.5 mg tablet 5 mg PO QAM 04/04/24 05/27/24 History famotidine 20 mg tablet 20 mg PO DAILY 30 days #30 tabs 04/30/24 05/27/24 Rx pantoprazole 40 mg tablet,delayed 40 mg PO BID #30 tabs 04/30/24 05/27/24 Rx release sucralfate 100 mg/mL oral 1 g (10 mL) PO QID #1,000 mL 04/30/24 05/27/24 Rx suspension gabapentin 100 mg capsule 100 mg PO DAILY@0700,1300 05/21/24 05/27/24 History gabapentin 100 mg capsule 200 mg PO HS 05/21/24 05/27/24 History warfarin 5 mg tablet 6 mg PO DAILY@1600 05/21/24 05/27/24 History Past Med/Surg History Problem List (Updated 05/27/24 @ 17:46 by Juan Mock M.D.) Subtherapeutic anticoagulation (Acute) Generalized weakness (Acute) Pneumonia (Acute) Pressure ulcer Anemia Cerebral microvascular disease (Acute) Acute confusion (Acute) Acute hyperkalemia (Acute) GERSON (acute kidney injury) (Acute) Encephalopathy acute (Acute) Diverticulitis (Acute) Chronic back pain Glaucoma CKD (chronic kidney disease) stage 3, GFR 30-59 ml/min HTN (hypertension) with goal to be determined On warfarin therapy Medical History Current every day smoker On warfarin therapy Surgical History H/O mechanical aortic valve replacement Family History Brother Hypertension Heart disease Sister Hypertension Heart disease Mother Hypertension Heart disease Myocardial infarction Father Hypertension Heart disease Denies family history of Ovarian cancer Prostate cancer Breast cancer Lung cancer Colorectal cancer Stroke Social History Smoking Status: Current every day smoker Tobacco Type: Cigarettes Age Started Using Tobacco: 38; packs per day: 0.50; Cigarettes Per Day: 10; Second Hand Exposure: No; Do You Dip or Chew Tobacco: No; Tobacco Cessation Education Requested by Patient: No Hx Alcohol Use: No Hx Substance Use: No Preferred Language: Mal[place]ian Communication Ability: Effective Visual Impairment: Limited Hearing Ability: Normal 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 Beliefs That Will Affect Care: None marital status: / Current Living Situation: Alone Current Living Situation Comment: [employer] current occupational status: retired How many Children do You have: 4 Other Information That Helps Us Care for You: No Feels Safe at Home: Yes Safety Concerns: Feels Safe At This Time Childhood Exposure to Second-Hand Smoke: Yes Diet: low salt caffeine: Yes Dental Care, Regularly: No Physical Activity Frequency: Does not Exercise Seatbelt Use: always Sunscreen Use: No Assistive Devices: Cane, Glasses and Walker Assistive Devices Comment: glasses not here Review of Systems Review of Systems: as per HPI Physical Exam Constitutional: well developed and well nourished; no acute distress and no altered mental status Eyes: PERRL, conjunctivae normal, anicteric sclerae Respiratory: normal respiratory effort, lungs clear to auscultation Cardiovascular: RRR, no murmur, no edema Gastrointestinal (Abdomen): normal bowel sounds, soft, nontender, no hepatosplenomegaly Skin: no rashes, warm and dry Results & Data Results & Data Vital Signs (Past 12 Hours) Vital Signs Temp Pulse Pulse Resp BP BP Pulse Ox 05/27/24 14:30 92 H 20 167/115 H 98 05/27/24 14:00 102 H 20 182/118 H 94 05/27/24 11:50 97 05/27/24 11:07 98 H 05/27/24 10:38 18 05/27/24 10:38 05/27/24 10:38 36.9 C 100 H 16 187/101 H 93 O2 Del Method 05/27/24 14:30 Room Air 05/27/24 14:00 Room Air 05/27/24 11:50 Room Air 05/27/24 11:07 05/27/24 10:38 05/27/24 10:38 Room Air 05/27/24 10:38 Code Status & VTE Plan VTE Prophylaxis Plan VTE Prophylaxis will be ordered: Yes Supervising Physician Co-Signing Physician Notes Patient seen and examined, chart reviewed, case discussed with Dr. Bonifacio Ayala MD and I agree with the assessment and plan as above except as otherwise noted Labs and images reviewed 83-year-old female with past medical history of hypertension, CKD, AVR on Coumadin, hospitalization, and recent GI bleeding who presents with generalized weakness. Feels fatigued with rhinorrhea and cough, nonproductive. On ER assessment she was found to be with subtherapeutic INR of particular concern due to mechanical valve. Initially reported as a mitral, on review [facility] AVR with goal 2.53.5. Has been placed on heparin drip until INR is therapeutic. UA is infected appearing but patient has no urinary symptoms suspect this is asymptomatic bacteriuria, this will be covered with antibiotics for pneumonia. She does have right basilar infiltrate on x-ray with respiratory symptoms, treated for CAP with Rocephin/azithromycin. Could consider escalation of antibiotics given recent hospital exposure however he is not toxic appearing conservative coverage on admission is reasonable. Agree with above. Resident Activity Tracking Resident Involvement: Resident Care Provided Care Provided: Adult Hospital Medicine
[2024-05-27] MEDS: AZITHROMYCIN 250 MG TAB PO ONE (17:20)
[2024-05-27] MEDS: ACETAMINOPHEN 1,000 MG/100 ML VIAL IV STA (17:21)
[2024-05-27] MEDS ORDERED: ALUMINUM/MAGNESIUM SUSP 30 ML UDC PO PRN (18:06)
[2024-05-27] MEDS: amLODIPine BESYLATE 5 MG TAB PO ONE (18:43)
[2024-05-27] MEDS: WARFARIN SOD 5 MG TAB PO SCH (19:30)
[2024-05-27] MEDS: METOPROLOL TARTRATE 25 MG TAB PO ONE (19:31)
[2024-05-27] MEDS: GABAPENTIN 100 MG CAP PO SCH (20:23)
[2024-05-27] MEDS: PANTOprazole 40 MG TAB PO SCH (20:24)
[2024-05-27] MEDS: METOPROLOL TARTRATE 1 MG/ML VIAL IV STA (20:49)
[2024-05-27 21:52] LABS: ANTI-Xa, UFH(UnfractionatedHep 1.02 IU/ml (0.3-0.7)
[2024-05-28] MEDS: ACETAMINOPHEN 325 MG TAB PO PRN (00:43)
--- NOTE | 2024-05-28 01:39 | Communication Note ---
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 VSS, patient as ymptomatic. EKG obtained, consistent with A-fib with rate in the 120s. Patient given IV metoprolol 2.5mg x1 - subsequent rates variable between 80 and 130. Was going to administer second dose of metoprolol, but patient spontaneously converted back to NSR around 2300.
[2024-05-28] MEDS: METOPROLOL TARTRATE 1 MG/ML VIAL IV STA (02:38)
[2024-05-28] MEDS: ONDANSETRON INJ 2 MG/ML 2 ML VIAL IV PRN (04:14)
[2024-05-28] MEDS: GABAPENTIN 100 MG CAP PO SCH (06:04)
[2024-05-28 06:45] LABS: Basophils # (auto) 0.03 K/uL (0.00-0.20); Basophils % (auto) 0.5 %; Eosinophils # (auto) 0.31 K/uL (0.00-0.50); Eosinophils % (auto) 4.7 %; Hematocrit (blood only) 38.8 % (37.0-47.0); Hemoglobin 11.7 g/dl (12.0-16.0); Immature Granulocytes # (auto) 0.02 K/uL (0.01-0.20); Immature Granulocytes % (auto) 0.3 %; Lymphocytes # (auto) 1.24 K/uL (1.20-3.40); Lymphocytes % (auto) 18.9 %; Mean Corpuscular Hemoglobin 30.2 pg (25.0-34.0); Mean Corpuscular Hgb Conc 30.2 g/dL (32.0-36.0); Mean Corpuscular Volume 100.3 fL (80.0-100.0); Mean Platelet Volume 9.4 fL (9.4-12.4); Monocytes # (auto) 0.47 K/uL (0.11-0.59); Monocytes % (auto) 7.2 %; Neutrophils # (auto) 4.49 K/uL (1.40-6.50); Neutrophils % (auto) 68.4 %; Platelet Count 298 K/uL (130-400); RDW Coefficient of Variation 20.3 % (11.5-14.5); RDW Standard Deviation 74.4 fL (36.4-46.3); Red Blood Count 3.87 M/uL (4.20-5.40); White Blood Count 6.56 K/ul (4.8-10.8)
[2024-05-28 06:55] LABS: ANTI-Xa, UFH(UnfractionatedHep 0.63 IU/ml (0.3-0.7)
[2024-05-28 06:57] LABS: INR 2.5 (0.9-1.1); Prothrombin Time 24.8 Seconds (9.0-12.0)
[2024-05-28 07:08] LABS: Albumin Level 3.7 gm/dl (3.4-5.0); Bilirubin,Total 0.4 mg/dl (0.2-1.0); Creatinine Clr Calc Pharmacy 37.2 ml/min; Globulin 3.8 gm/dl (2.5-4.0); Potassium 4.3 mmol/L (3.5-5.1); Total Protein 7.5 gm/dl (6.0-8.3)
[2024-05-28 07:24] LABS: Echinocytes 1+
--- NOTE | 2024-05-28 07:33 | Hospitalist Progress Note ---
Date of Service May 28, 2024 Assessment & Plan (1) Pneumonia: (2) Anemia: (3) CKD (chronic kidney disease) stage 3, GFR 30-59 ml/min: (4) HTN (hypertension) with goal to be determined: (5) On warfarin therapy: (6) Generalized weakness: (7) Subtherapeutic anticoagulation: Plan Patient is an 83-year-old female with past medical history of hypertension, CKD, s/p AVR on Warfarin, frequent hospitalizations, hx of GI bleed. here due to generalized weakness and pneumonia. Pneumonia Patient with generalized weakness, nausea, runny nose and cough for a week, worse AM 05/27 CXR w/ mild congestive heart failure but also noted right basal infiltrate infectious vs aspiration Ceftriaxone, Azithromycin continued. MRSA nares negative -Monitor to escalate to HAP coverage given recent admission for GIB/AVM req cauterization WBC wnl, afebrile. Hgb 11.7 on heparin gtt -- see below, now to be discontinued Aspiration precautions, added incentive spirometer Sputum cx if able to produce, added mucinex BID Notable did have episode afib w/ RVR up to 150s overnight, given metoprolol 2.5mg IV x 1 and converted to NSR around 2247 on 05/27. -Remains on telemetry monitoring. Had been continued on home amlodipine, lasix, lisinopril however appeared dry/placed on hold for AM tomorrow and 250cc NSS bolus ordered as well as orthostatic VS. Repeat CXR, BNP w/ AM labs Labs/exam in AM, therapy consults pending Subtherapeutic INR S/p AVR on Warfarin . Goal INR 2.5-3.5 INR subtherapeutic at 1.9 on admission and Heparin gtt started and given coumadin 5mg x1 Brown BM reported but +epigastric discomfort however INR 2.5 and heparin gtt has been continued and continues on PPI BID/pepcid once daily Continue coumadin 7.5mg Fridays, 5mg all other days INR/CBC in AM Afib w/ RVR - episode overnight 05/27 TSH wnl. ?2nd to infection vs other. EKG confirmed such, metoprolol IV x 1 provided and converted back to NSR overnight. INR therapeutic today and heparin gtt discontinued/remains on coumadin and metoprolol 12.5mg once daily continues on telemetry monitoring. keep mag/K replete and will monitor INR in AM Review prior ECHO given murmur on exam, , worsened. --Will repeat limited ECHO to see if EF reduced/f/u . 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 Denied melena/hematemesis on admission, reported BROWN BM to me AM 05/28 however did have epigastric discomfort and will monitor Remains on PPI BID, pepcid once daily Heparin GTT discontinued Monitor CBC in AM (suspect hgb 13.1 on admission likely hemoconcentrated) UTI UA appearing positive but asymptomatic (however some intemittent confusion noted) Ceftriaxone IV continued for above, f/u urine cx CKD BUN/Cr 18/1.25 on admission, around baseline Continued lasix/lisinopril as taking at home given BUN/Cr 16/1.07 on repeat but have placed on hold for now as above Renal dose meds/avoid nephrotoxins BMP in AM HTN: Continued home metoprolol, amlodipine, Lasix and lisinopril have been placed on hold Hydralazine IV x 1 for HTN w/ PT/250cc bolus NSS. L asix/lisinopril on hold as well as amlodipine and plan for orthostatic VS monitoring Repeat BP 144/85 after NSS bolus and will hold diuretics/lisinopril as above and monitor Chronic stable diagnoses: moderate/extensive chronic microvascular ischemic disease - recent hospitalization with acute metabolic encephalopathy, currently alert and oriented x 3 shoulder pain/ OA - continue Voltaren gel prn (monitor to hold as can cause bleeding as well) FEN: Clear liquids -- full liquid, advance as tolerated Code status : DNR Dispo: continued inpatient stay, heparin gtt discontinued, echo pending, PT/OT evals pending Monitor for any bleeding Hopeful dc next 2-3 days pending course. Admission and Anticipated Discharge Date Admission Date: May 27, 2024 Supervising Physician Co-Signing Physician Notes The patient was not seen by me. The chart was reviewed. Case discussed with DAYNA Marrero. Agree with assessment and plan Subjective Eval this morning, sitting up at side of bed about to work with therapy. Reporting some dizziness, has been chronic issue for month for her. Discussed checking BP/likely adjustment to her medications. INR was 2.5 this morning, reports moved her bowels/brown in color. Some epigastric discomfort and given hx GIB/AVM last month, heparin has been discontinued. Breathing improved/stable, on room air 98%. Clear w/ faint bibasilar crackles. Review prior ECHO given murmur on exam, , worsened. Will place lisinopril/lasix/amlodipine on HOLD for now/monitor orthostatic VS. 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 slightly reduced visual field on the right with confrontation (but reports at her baseline for months) Resp: diminished in the bases, no wheezing/rales, on room air CV: RRR, PACs, +systolic murmur/click, +diastolic murmur, trace pedal edema, nonpitting GI: +BS, soft, slight epigastric tenderness but no guarding/rebound : no gallagher MSK/Neuro: nonfocal but generalized weakness, moves all extremities Psych: alert/oriented to person/place, intermittent to time Results & Data Results & Data Vital Signs (Past 12 Hours) Vital Signs Temp Pulse Pulse Resp BP BP Pulse Ox 05/28/24 07:18 86 05/28/24 02:54 36.3 C L 82 18 140/84 100 05/27/24 22:45 91 H 05/27/24 22:38 36.8 C 128 H 18 135/71 98 05/27/24 21:50 111 H 05/27/24 21:18 105 H 107/77 05/27/24 20:49 120 H 140/95 05/27/24 19:55 05/27/24 19:50 132 H O2 Del Method 05/28/24 07:18 05/28/24 02:54 Room Air 05/27/24 22:45 05/27/24 22:38 Room Air 05/27/24 21:50 05/27/24 21:18 05/27/24 20:49 05/27/24 19:55 Room Air 05/27/24 19:50 Laboratory Results 05/28/24 06:19 05/28/24 06:19 TB 0.4 AST 16 ALT 11 ALP 108 Mag 2.1 PG Care Time/CCT Total # of Minutes Spent Total Time Spent with Patient: Total time spent is greater than 50% in coordination of care (as documented) at patient's floor/unit and/or counseling patient: Coding Level of Care Code 19041 SUB INP/OBS CARE 3/50MIN Diagnoses Pneumonia J18.9 Anemia D64.9 CKD (chronic kidney disease) stage 3, GFR 30-59 ml/min N18.30 HTN (hypertension) with goal to be determined I10 On warfarin therapy Z79.01 Generalized weakness R53.1 Subtherapeutic anticoagulation Z51.81; Z79.01
[2024-05-28] MEDS: METOPROLOL SUCC 25MG EXT REL TAB PO SCH (08:22)
[2024-05-28] MEDS: AZITHROMYCIN 250 MG TAB PO SCH (08:22)
[2024-05-28 08:23] LABS: Magnesium 2.1 mg/dl (1.7-2.4)
[2024-05-28] MEDS: lisinopril 10 MG TAB PO SCH (08:23)
[2024-05-28] MEDS: FUROSEMIDE 20 MG TAB PO SCH (08:23)
[2024-05-28] MEDS: FAMOTIDINE 20 MG TAB PO SCH (08:23)
[2024-05-28] MEDS: amLODIPine BESYLATE 5 MG TAB PO SCH (09:57)
[2024-05-28] MEDS: SODIUM CHLORIDE 0.9% 250 ML IV ONE (10:03)
[2024-05-28] MEDS: hydrALAZINE HCL 20 MG/ML VIAL IV ONE (10:03)
--- NOTE | 2024-05-28 11:52 | Electrocardiogram Report ---
Test Reason : Blood Pressure : */* mmHG Vent. Rate : 129 BPM Atrial Rate : 133 BPM P-R Int : * ms QRS Dur : 136 ms QT Int : 320 ms P-R-T Axes : * 96 52 degrees QTcB Int : 468 ms Atrial fibrillation with rapid ventricular response Right bundle branch block Abnormal ECG When compared with ECG of 27-May-2024 10:58, Atrial fibrillation has replaced Sinus rhythm Confirmed by Malcolm Freire [id number] on 05/28/2024 11:52:20 AM Referred By: REFERRED SELF Confirmed By: Malcolm Freire
--- NOTE | 2024-05-28 12:19 | XCELERA ---
[id number]
[2024-05-28] MEDS ORDERED: ALBUT/IPRATROP 3MG/0.5MG NEB 3 ML VIAL NEB PRN (15:49)
[2024-05-28] MEDS: cefTRIAXone SODIUM 2,000 MG/50 ML BAG IV SCH (16:13)
--- NOTE | 2024-05-28 16:21 | XRay Report ---
Clinical History: Follow-up pulmonary congestion Technique: A frontal view of the chest was obtained Comparison is made to the prior examination dated 04/03/2024 Findings: There are no confluent pulmonary infiltrates. The heart size is at the upper limit of normal. No pleural effusion or pneumothorax is seen. There is suspected mild pulmonary vascular congestion, less severe than before No fracture is noted. There is bilateral glenohumeral osteoarthritis. Sternal wires are present. Atherosclerotic calcifications are seen within the aorta Impression: Mild pulmonary vascular congestion, less severe than before Electronically signed by Adolfo Hartman 05-28-2024 4:20 PM
[2024-05-28] MEDS: guaiFENesin 600 MG TABCR PO SCH (22:04)
[2024-05-29 05:58] LABS: Hematocrit (blood only) 34.9 % (37.0-47.0); Hemoglobin 10.9 g/dl (12.0-16.0); Mean Corpuscular Hemoglobin 31.1 pg (25.0-34.0); Mean Corpuscular Hgb Conc 31.2 g/dL (32.0-36.0); Mean Corpuscular Volume 99.7 fL (80.0-100.0); Platelet Count 239 K/uL (130-400); RDW Coefficient of Variation 20.5 % (11.5-14.5); RDW Standard Deviation 75.9 fL (36.4-46.3); White Blood Count 5.87 K/ul (4.8-10.8)
[2024-05-29 06:15] LABS: BUN Creatinine Ratio 11.8 (10-20); Creatinine Clr Calc Pharmacy 31.4 ml/min; Magnesium 1.9 mg/dl (1.7-2.4); Potassium 4.1 mmol/L (3.5-5.1)
[2024-05-29 06:36] LABS: INR 3.8 (0.9-1.1); Prothrombin Time 36.5 Seconds (9.0-12.0)
[2024-05-29 06:45] LABS: Folate (Folic Acid),Ser orPlas 17.88 ng/ml (>5.38)
--- NOTE | 2024-05-29 07:51 | Hospitalist Progress Note ---
Date of Service May 29, 2024 Assessment & Plan (1) Pneumonia: (2) Anemia: (3) CKD (chronic kidney disease) stage 3, GFR 30-59 ml/min: (4) HTN (hypertension) with goal to be determined: (5) On warfarin therapy: (6) Generalized weakness: (7) Subtherapeutic anticoagulation: Plan Patient is an 83-year-old female with past medical history of hypertension, CKD, s/p AVR on Warfarin, frequent hospitalizations, hx of GI bleed. here due to generalized weakness and pneumonia with nausea/runny nose/cough x 1 week, worsened AM 05/27. CXR w/ mild congestive changes but also noted RIGHT basal infiltrate suspicious for infectious vs aspiration. Biofire NEGATIVE Pneumonia Patient with generalized weakness, nausea, runny nose and cough for a week, worse AM 05/27 Continue Ceftriaxone/Azithromycin. MRSA nares negative. If worsened given recent hospitalization will req HAP coverage but reports improving WBC wnl, afebrile Hgb stable on heparin gtt and did get NSS 250cc yesterday. No blood in stool reported and now off heparin gtt/INR elevated 3.8 and coumadin on hold Continue aspiration precautions, pulmonary toilet, incentive spirometer, mucinex Sputum if able to produce PO hydration encouraged, home lasix/lisinopril on HOLD. Amlodipine has been resumed and continues on metoprolol. BP 135/72 and no further dizziness reported and will monitor OFF her lisinopril/lasix for now. ?able to dc lisinopril and utilize lasix prn edema (no pitting edema on exam, BNP checked w/ AM labs given CXR w/ congestion on admission and NOT elevated, 90) as likely not best medication with her significant valvular disease s/p AVR in 1984 in [place]. Afib w/ RVR Episode overnight 05/27. No prior hx of such but ?2nd to aortic stenosis/dehydration however was on heparin gtt and INR 2.5 AM 05/28 and converted back around 2247 on 05/27. Confirmed EKG w/ RVR on EKG TSH checked, wnl. ECHO w/ normal EF, severe cLVH noted INR no longer subtherapeutic as below and actually elevated to 3.8 today Continues on metoprolol PO once daily Keep mag/K replete, telemetry monitoring Has had MRI brain in the past but ?if missing occult afib. No need for MRI given on coumadin/heparin gtt when occurred and flipped back w/ one time lopressor IV but could be considered as cause for some of her intermittent symptoms. ?holter at dc to see if having more frequent episodes If flips back can consider increased BB (also could use for HTN as needed over lisinopril as likely benefit to stop that medication w/ her severe aortic stenosis) Will consult her usual [facility] provider contracting consultant to weigh in Aortic Stenosis/AVR/Subtherapeutic INR S/p AVR on Warfarin . Goal INR 2.5-3.5. On coumadin 7.5mg Fridays, 5mg all other days most recently INR 1.9 on admit, heparin gtt started and coumadin 5mg PO x 1 provided. INR 2.5 on 05/28, heparin gtt discontinued and INR 3.8 as above today/coumadin on hold for today. Continue PPI/Pepcid for GI proph/recent GIB/AVM needing cauterization last month. [facility] [place] reported Monitor CBC/INR/plt in AM, monitor for any bleeding HTN On metoprolol succinate 12.5mg daily, lisinopril 10mg, amlodipine 5mg, lasix 20mg daily at baseline BP elevated w/ taking all meds ordered on admission (suspect has some noncompliance at baseline) however IVF ordered as dehydrated 05/28 and lasix/lisinopril placed on hold and BP 135/72 today and amlodipine has been resumed and continues on metoprolol Suspect w/ her that unless volume overloaded would exacerbate her dizziness, no significant LE edema and BNP wnl and defer resumption. 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 Uche DENTON reported, slight epigastric pain 05/28 resolved today, now off heparin gtt and continues PPI/H2 Monitor for any bleeding, CBC in AM (suspect initial hgb was hemoconcentrated) CKD/Possible UTI BUN/Cr 18/1.25 on admission, around baseline UA appearing positive but asymptomatic (however some intermittent confusion noted, ?cause) Ceftriaxone IV continued, repeat urine cx pending (noting was on abx) Lisinopril/lasix remains on hold but notable did get both yesterday AM, Cr 1.27 and will renal dose meds/avoid nephrotoxins and monitor BMP IN AM HTN: Continued home metoprolol, amlodipine, Lasix and lisinopril have been placed on hold Hydralazine IV x 1 for HTN w/ PT/250cc bolus NSS. L asix/lisinopril on hold as well as amlodipine and plan for orthostatic VS monitoring Repeat BP 144/85 after NSS bolus and will hold diuretics/lisinopril as above and monitor Chronic stable diagnoses: moderate/extensive chronic microvascular ischemic disease - recent hospitalization with acute metabolic encephalopathy, currently alert and oriented x 3, intermittent confusion suspect 2nd to UTI and remains on ABx/improving. Notable did have episode afib but on coumadin/heparin gtt at that time. Cards as above shoulder pain/ OA - continue Voltaren gel prn (monitor to hold as can cause bleeding as well) Dispo: continued inpatient stay, monitor urine cx. Lisinopril/lasix on hold and remains on telemetry. bttn Cards consulted to weigh in on afib day prior/medication regimen. Coumadin held for today for INR>3.5 (suspect from abx) and will monitor INR in AM. Hopeful dc next 1-2 days pending course Suspect benefit from rehab, PT/OT consults pending and CM to follow up for safety at dc prior to returning home Admission and Anticipated Discharge Date Admission Date: May 27, 2024 Supervising Physician Co-Signing Physician Notes The patient was not seen by me. The chart was reviewed. Case discussed with DAYNA Marreor. Agree with assessment and plan Subjective Eval this afternoon around lunch time, reports feeling better. Breathing stable, on room air. No further diarrhea since last evening. monitor for cdiff discussed on abx. No blood/dark color to stools, no abdominal pain. INR 3.8, coumadin has been placed on hold and will monitor INR in am. Suspect from abx use but may need adjustment to her coumadin. Diet has been advanced/tolerating. Does her activities at home alone, would consider rehab. Will f/u therapy evals, discuss w/ CM. 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 slightly reduced visual field on the right with confrontation (but reports at her baseline for months) Resp: diminished in the bases but improvement in air entry, no overt wheezing/rales, on room air CV: RRR, PACs, +systolic murmur/click, +diastolic murmur, nonpitting edema, pulses present GI: +BS, soft, no overt tenderness/guarding : no gallagher MSK/Neuro: nonfocal but generalized weakness, moves all extremities Psych: alert/oriented to person/place, intermittent to time Results & Data Results & Data Vital Signs (Past 12 Hours) Vital Signs Temp Pulse Pulse Resp BP Pulse Ox O2 Del Method 05/29/24 02:01 36.6 C 88 16 138/85 98 Room Air 05/29/24 00:24 87 05/28/24 23:16 36.8 C 92 H 16 138/82 100 Room Air 05/28/24 19:58 36.7 C 84 16 137/83 100 Room Air Laboratory Results 05/29/24 05:37 05/29/24 05:37 Mag 1.9 BNP 90 B12 656 Folate 17.88 Diagnostic Findings Chest X-Ray 05/28/24 15:48 Clinical History: Follow-up pulmonary congestion Technique: A frontal view of the chest was obtained Comparison is made to the prior examination dated 04/03/2024 Findings: There are no confluent pulmonary infiltrates. The heart size is at the upper limit of normal. No pleural effusion or pneumothorax is seen. There is suspected mild pulmonary vascular congestion, less severe than before No fracture is noted. There is bilateral glenohumeral osteoarthritis. Sternal wires are present. Atherosclerotic calcifications are seen within the aorta Impression: Mild pulmonary vascular congestion, less severe than before Electronically signed by Adolfo Hartman 05-28-2024 4:20 PM PG Care Time/CCT Total # of Minutes Spent Total Time Spent with Patient: Total time spent is greater than 50% in coordination of care (as documented) at patient's floor/unit and/or counseling patient: Coding Level of Care Code 47980 SUB INP/OBS CARE 3/50MIN Diagnoses Pneumonia J18.9 Anemia D64.9 CKD (chronic kidney disease) stage 3, GFR 30-59 ml/min N18.30 HTN (hypertension) with goal to be determined I10 On warfarin therapy Z79.01 Generalized weakness R53.1 Subtherapeutic anticoagulation Z51.81; Z79.01
[2024-05-29 08:15] LABS: Adenovirus F 40/41 PCR Not Detected (NotDetected); Astrovirus PCR Not Detected (NotDetected); Campylobacter PCR Not Detected (NotDetected); Cryptosporidium PCR Not Detected (NotDetected); Cyclospora cayetanensis PCR Not Detected (NotDetected); Entamoeba histolytica PCR Not Detected (NotDetected); Enteroaggregative E.coli(EAEC) Not Detected (NotDetected); Enteropathogenic E.coli (EPEC) Not Detected (NotDetected); Enterotoxigenic E.coli (ETEC) Not Detected (NotDetected); Giardia lamblia PCR Not Detected (NotDetected); Norovirus GI/GII PCR Not Detected (NotDetected); Plesiomonas shigelloides PCR Not Detected (NotDetected); Rotavirus A PCR Not Detected (NotDetected); Salmonella PCR Not Detected (NotDetected); Sapovirus PCR Not Detected (NotDetected); Shiga-like Toxin E.coli (STEC) Not Detected (NotDetected); Shigella/Enteroinvasive E.coli Not Detected (NotDetected); Vibrio cholerae PCR Not Detected (NotDetected); Vibrio species PCR Not Detected (NotDetected); Yersinia enterocolitica PCR Not Detected (NotDetected)
[2024-05-29] MEDS: MAGNESIUM SULFATE / D5W 1 GM/100 ML BAG IV ONE (09:08)
[2024-05-29] MEDS: DORZOLAMIDE HCL 2% OPH SOLN 10 ML BTL OPB SCH (18:08)
[2024-05-29] MEDS ORDERED: QUEtiapine FUMARATE 25 MG TABLET PO PRN (18:11)
[2024-05-29] MEDS ORDERED: DORZOLAMIDE HCL 2% OPH SOLN 10 ML BTL OPB SCH (21:00)
[2024-05-29] MEDS: LATANOPROST 0.005% OP SOLN 2.5 ML BTL OPB SCH (23:05)
[2024-05-30 06:30] LABS: Hematocrit (blood only) 35.1 % (37.0-47.0); Mean Corpuscular Hemoglobin 31.3 pg (25.0-34.0); Mean Corpuscular Hgb Conc 31.3 g/dL (32.0-36.0); Mean Corpuscular Volume 99.7 fL (80.0-100.0); Mean Platelet Volume 9.6 fL (9.4-12.4); Platelet Count 259 K/uL (130-400); RDW Coefficient of Variation 19.8 % (11.5-14.5); RDW Standard Deviation 73.1 fL (36.4-46.3); Red Blood Count 3.52 M/uL (4.20-5.40); White Blood Count 5.15 K/ul (4.8-10.8)
[2024-05-30 06:44] LABS: BUN Creatinine Ratio 14.9 (10-20); Magnesium 2.1 mg/dl (1.7-2.4); Potassium 4.1 mmol/L (3.5-5.1)
[2024-05-30 06:59] LABS: INR 3.3 (0.9-1.1); Prothrombin Time 32.3 Seconds (9.0-12.0)
[2024-05-30 07:05] LABS: Ferritin 109.3 ng/ml (8-388)
--- NOTE | 2024-05-30 08:03 | Hospitalist Progress Note ---
Date of Service May 30, 2024 Assessment & Plan (1) Pneumonia: (2) Anemia: (3) CKD (chronic kidney disease) stage 3, GFR 30-59 ml/min: (4) HTN (hypertension) with goal to be determined: (5) On warfarin therapy: (6) Generalized weakness: (7) Subtherapeutic anticoagulation: Plan Patient is an 83-year-old female with past medical history of hypertension, CKD, s/p AVR on Warfarin, frequent hospitalizations, hx of GI bleed presented for generalized weakness, concerns for PNA with nausea/runny nose/cough x 1 week, worsened AM 05/27. CXR w/ mild congestive changes but also noted RIGHT basal infiltrate suspicious for infectious vs aspiration. Biofire NEGATIVE on admission Pneumonia improving, no SOB reported, 98% on RA, WBC wnl, afebrile Ceftriaxone/Azithromycin (day 4), pulmonary toilet, aspiration precautions PT/OT rec rehab, [facility] hopefully tomorrow Aortic valve replacement/aortic stenosis Chronic anticoagulation use, subtherapeutic INR Afib w/ RVR Hx AVR in the 1984 in [place], on coumadin therapy. GOAL INR 2.5-3.5 and follows w/ [facility] INR <2.5 on admission, heparin gtt/coumadin 5mg PO x 1. Went into afib w/ RVR overnight 05/27 and converted back w/ one dose IV lopressor. ?2nd to acute illness/PNA vs UTI. TSH wnl INR 2.5 and heparin gtt discontinued ECHO w/ hyperdynamic EF/dry on exam (lasix placed on hold, BNP NOT elevated at 90- last winter echo noted significant stenosis however and cautious w/ dropping pressures w/ diuretics and lasix placed on hold as well as lisinopril) Cardiology consulted to weigh in/consider increasing her metoprolol/recs of HTN regimen Metoprolol increased to 25mg daily as did have 3 beat vtach 05/30 AM at 816/asymptomatic Monitor on telemetry, INR in AM HTN On metoprolol succinate 12.5mg daily, lisinopril 10mg, amlodipine 5mg, lasix 20mg daily at baseline Metoprolol increased to 25mg as above, continues on amlodipine. BP stable 143/84 at present but Cr 1.4 and lisinopril/lasix on hold and less dehydration on exam/less diarrhea and will monitor to resume in AM. 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 Brown stools reported, hgb stable and now off heparin gtt, remains on coumadin and INR in range. Continues on PPI/pepcid and will monitor CBC in AM/for any bleeding GERSON on CKD Suspected 2nd to ongoing MICHAEL/lasix use and diarrheal losses. Gentle IVF provided and will continue off lisinopril/lasix for now and encouraged PO intake. Renal dose meds, avoid nephrotoxins, BMP in AM Monitor for urinary symptoms Chronic stable diagnoses: moderate/extensive chronic microvascular ischemic disease - recent hospitalization with acute metabolic encephalopathy, currently alert and oriented x 3, intermittent confusion suspect 2nd to PNA/possible UTI and remains on ABx/improving. Consider changing abx for urinary coverage if any worsening mentation shoulder pain/ OA - continue Voltaren gel prn (monitor to hold as can cause bleeding as well) Dispo: continued inpatient stay, hopeful [facility] 05/30 Admission and Anticipated Discharge Date Admission Date: May 27, 2024 Subjective Eval around lunch, resting in bed. No further diarrhea, brown BM reported. No abdominal pain but generalized weakness, discussed urine cx w/ VRE/going to adjust her abx. Breathing stable, no SOB. INR 3.3, coumadin continued/monitor INR in am and can reduce if needed if >3.5 again by 10% weekly. Review telemetry -- 3 beat run Vtach this mornig at 816am Metoprolol increased to 25mg for this morning, cardiology consultation pending. Plan for [facility], hopefully tomorrow but discussed needing to adjust couple things first. Questions/concerns addressed a this time. Physical Exam 2 Physical Exam: General: female sitting up in bed, appears improved, NAD, no further dizziness HEENT: L eye glaucoma at baseline/blind R eye w/ slight reduced visual field laterally but reports unchanged from baseline mm improved, slightly dry (improved from day prior) trachea midline Resp: even/unlabored but slightly diminished in the bases, no significant w/c/r, on room air CV: RRR, +AVR/click, +systolic murmur, no pitting edema GI: +BS, soft/NT no gallagher MSK/Neuro: nonfocal, answering questions appropriately, able to follow commands as asked Psych: AOx3, cooperative with exam Results & Data Results & Data Vital Signs (Past 12 Hours) Vital Signs Temp Pulse Pulse Resp BP Pulse Ox O2 Del Method 05/30/24 07:00 82 05/30/24 01:14 36.5 C 81 16 133/77 100 Room Air 05/30/24 00:18 75 05/29/24 22:50 36.6 C 77 16 139/71 96 Room Air Laboratory Results 05/30/24 05:41 05/30/24 05:41 Mag 2.1 Stool biofire negative PG Care Time/CCT Total # of Minutes Spent Total Time Spent with Patient: Total time spent is greater than 50% in coordination of care (as documented) at patient's floor/unit and/or counseling patient: Coding Level of Care Code 21966 SUB INP/OBS CARE 3/50MIN Diagnoses Pneumonia J18.9 Anemia D64.9 CKD (chronic kidney disease) stage 3, GFR 30-59 ml/min N18.30 HTN (hypertension) with goal to be determined I10 On warfarin therapy Z79.01 Generalized weakness R53.1 Subtherapeutic anticoagulation Z51.81; Z79.01
--- NOTE | 2024-05-30 08:41 | Cardiology Consultation ---
Date of Consultation May 30, 2024 Assessment & Plan (1) Generalized weakness: (2) Pneumonia: (3) UTI (urinary tract infection): (4) Atrial fibrillation with RVR: (5) CKD (chronic kidney disease) stage 3, GFR 30-59 ml/min: (6) On warfarin therapy: Plan Assessment: 83 year old female admitted for generalized weakness and subsequent findings of Pneumonia and UTI. Experienced a brief episode of Atrial fibrillation with spontaneous conversion. Plan: 1. generalized weakness 2. pneumonia 3. UTI -As per management of primary team. 4. Atrial fibrillation with RVR: -likely precipitated by acute infectious process. Patient spontaneously converted and remains SR with no acute events overnight. -Continue Toprol xl. given patient's blood pressure and hyperdynamic appearance on echo, would increase to 25mg PO Daily, starting today. Titrate up as needed. -Continue warfarin as per current regimen (hx of mechanical AVR). INR within therapeutic window today. 5. CKD -Renal function stable. -Agree with holding PO Furosemide today given patient's hyperdynamic state in the setting of an acute infectious process. -Monitor renal function closely and consider resuming with the next 24-48 hours. 6. Chronic warfarin therapy -S/t history of mechanical AVR. -Monitor INR levels, was subtherapeutic at admission, now within target. Case has been discussed with Dr. Carlos. Further recommendations regarding plan of care as per his assessment. I spent a total of 40 minutes on the date of service in preparation, delivery, documentation of the care provided to the patient excluding any time spent in the performance of separately billed services. DARNELL Tay [facility] Cardiology [facility] Supervising Physician Co-Signing Physician Notes I have personally performed a history and physical examination on the patient. I have reviewed the advance practitioner's documentation, and I agree with, and take responsibility for the plan of care. 83-year-old female admitted secondary to pneumonia and urinary tract infection. Cardiology consultation requested due to brief episode of atrial fibrillation recorded 05/27/2024. Patient asymptomatic during episode. She has remained in sinus rhythm over the past 2 and half days. Tolerating low-dose beta-irish therapy. Chronically anticoagulated due to mechanical AVR (implanted in the ).Goal INR 2.5-3.5. Recommendations: * Titrate Toprol-XL 25 mg daily today. Consider increase to 50 mg daily pending clinical response. * Restart oral furosemide 20 mg daily in a.m. 05/31/2024 pending review of lab studies. * Continue lisinopril as ordered. * Dose warfarinfor goal INR 2.5-3.5 * Treatment of UTI/pneumonia as per internal medicine. * Cardiology will sign off for the weekend, please call with additional concerns/questions. Max Carlos DO, [facility] I spent a total of 30 minutes on the date of service in preparation, delivery, and documentation of the care provided to this patient, excluding any time spent in the performance of separately billed services. History of Present Illness Reason for Consultation: A-fib with hx of P. A-fib/AVR Requesting Physician: RAD[facility] Hospitalist Attending Physician: Akila Block MD History of Present Illness HPI: Patient is an 83 year old female with PMHx significant for AVR with [facility] Mechanical (on Warfarin) 1984, HTN, Right BBB, CKD, recent GI bleed, and glaucoma that presented to the ER 05/27/2024 with complaints of generalized weakness x 1 week. Also endorsed poor appetite, runny nose, nausea and vomiting. Upon seeing patient today she is resting comfortably with mild improvement in her symptoms. Denies chest pain, pressure or palpitations. EKG 05/27/24: A-fib with RVR, right BBB Rate 129bpm Chest xray on admission: IMPRESSION: Mild congestive heart failure is persistent. Right basal infiltrate could be infectious or aspiration. Repeat chest xray yesterday: Impression: Mild pulmonary vascular congestion, less severe than before Head CT negative H/H stable Review of telemetry shows only episode of A-fib was on 05/27/24. she remains SR with IVCD and PACs rates 70-90. Notation of one 3-beat run of VT at 0816. Asymptomatic. Allergies Allergy/AdvReac Type Severity Reaction Status Date / Time No Known Allergies Allergy Verified 04/24/24 16:27 Home Medications Medication Instructions Recorded Confirmed Type latanoprost 0.005 % eye drops 1 drp OPB PM 07/31/23 05/27/24 History furosemide 20 mg tablet 20 mg PO DAILY #90 tabs 08/20/23 05/27/24 Rx lisinopril 10 mg tablet 10 mg PO DAILY #90 tabs 10/30/23 05/27/24 Rx Shower Chair #1 ea 11/20/23 05/21/24 Rx brimonidine 0.2 % eye drops 1 drp OPB UD 03/18/24 05/27/24 History dorzolamide 2 % eye drops 1 drp OPB UD 03/18/24 05/27/24 History metoprolol succinate 25 mg 12.5 mg PO QAM 03/18/24 05/27/24 History tablet,extended release 24 hr tramadol 50 mg tablet 50 mg PO TID PRN pain #0 tabs 03/30/24 05/27/24 Rx amlodipine 2.5 mg tablet 5 mg PO QAM 04/04/24 05/27/24 History famotidine 20 mg tablet 20 mg PO DAILY 30 days #30 tabs 04/30/24 05/27/24 Rx pantoprazole 40 mg tablet,delayed 40 mg PO BID #30 tabs 04/30/24 05/27/24 Rx release sucralfate 100 mg/mL oral 1 g (10 mL) PO QID #1,000 mL 04/30/24 05/27/24 Rx suspension gabapentin 100 mg capsule 100 mg PO DAILY@0700,1300 05/21/24 05/27/24 History gabapentin 100 mg capsule 200 mg PO HS 05/21/24 05/27/24 History warfarin 5 mg tablet 6 mg PO DAILY@1600 05/21/24 05/27/24 History Patient History Medical History Current every day smoker On warfarin therapy Surgical History H/O mechanical aortic valve replacement Family History Brother Hypertension Heart disease Sister Hypertension Heart disease Mother Hypertension Heart disease Myocardial infarction Father Hypertension Heart disease Denies family history of Ovarian cancer Prostate cancer Breast cancer Lung cancer Colorectal cancer Stroke Social History Smoking Status: Current every day smoker Tobacco Type: Cigarettes Age Started Using Tobacco: 38; packs per day: 0.50; Cigarettes Per Day: 10; Second Hand Exposure: No; Do You Dip or Chew Tobacco: No; Tobacco Cessation Education Requested by Patient: No Hx Alcohol Use: No Hx Substance Use: No Preferred Language: Montenegrin Communication Ability: Effective Visual Impairment: Limited Hearing Ability: Normal Compressed Gases Tester Required: No Beliefs That Will Affect Care: None marital status: / Current Living Situation: Alone Current Living Situation Comment: [employer] current occupational status: retired How many Children do You have: 4 Other Information That Helps Us Care for You: No Feels Safe at Home: Yes Safety Concerns: Feels Safe At This Time Childhood Exposure to Second-Hand Smoke: Yes Diet: low salt caffeine: Yes Dental Care, Regularly: No Physical Activity Frequency: Does not Exercise Seatbelt Use: always Sunscreen Use: No Assistive Devices: Walker Assistive Devices Comment: glasses not here Review of Systems Review of Systems: All systems reviewed & are unremarkable except as noted in HPI & below Physical Exam Constitutional: well developed, well nourished and + ill appearing; no acute distress Neck: normal visual inspection and trachea midline Respiratory: normal respiratory effort and + cough (dry, non-productive ); no respiratory distress, no labored breathing and no audible wheezes Auscultation: + diminished lung sounds; no crackles, no rales, no rhonchi and no wheezes Cardiovascular: Rate/Rhythm: regular rate and regular rhythm Heart Sounds: normal S1, normal S2 and + murmur Vessels: dorsalis pedis pulses present; no JVD Extremities: no edema Skin: no rashes, warm and dry Psychiatric: A+Ox3, euthymic affect Results & Data Vital Signs (Past 12 Hours) Vital Signs Temp Pulse Pulse Resp BP BP Pulse Ox 05/30/24 08:05 36.9 C 82 16 151/86 H 95 05/30/24 07:00 82 05/30/24 01:14 36.5 C 81 16 133/77 100 05/30/24 00:18 75 05/29/24 22:50 36.6 C 77 16 139/71 96 O2 Del Method 05/30/24 08:05 Room Air 05/30/24 07:00 05/30/24 01:14 Room Air 05/30/24 00:18 05/29/24 22:50 Room Air Laboratory Results Coagulation 05/30/24 Range/Units 05:41 PT 32.3 H (9.0-12.0) Seconds CBC 05/30/24 Range/Units 05:41 WBC 5.15 (4.8-10.8) K/ul RBC 3.52 L (4.20-5.40) M/uL Hgb 11.0 L (12.0-16.0) g/dl Hct 35.1 L (37.0-47.0) % Plt Count 259 (130-400) K/uL Comprehensive Metabolic Panel 05/30/24 Range/Units 05:41 Sodium 139 (136-145) mmol/L Potassium 4.1 (3.5-5.1) mmol/L Chloride 113 H (98-107) mmol/L Carbon Dioxide 21 (21-32) mmol/L BUN 21 (6-23) mg/dl Creatinine 1.41 H (0.6-1.2) mg/dl Glucose 76 (70-99(Fasting)) mg/dl Calcium 9.0 (8.6-10.3) mg/dl Intake and Output 05/29/24 05/30/24 05/30/24 22:59 06:59 14:59 Intake Total 250 / 830 Output Total Balance 250 / 829 - 829 Intake: IV 50 / 150 cefTRIAXone SODIUM 2,000 mg In 50 / 50 50 ml @ 100 mls/hr IV Q24H MCKENZIE Rx#:[id number] Oral 200 / 680 Output: Urine/Stool Mix Other: # Unmeasured Voids 1 Weight 78.9 kg Diagnostic Findings Echocardiogram 05/28/2024 Severe concentric LVH LV systolic function is normal Moderate mitral annular calcification
[2024-05-30] MEDS: METOPROLOL SUCC 25MG EXT REL TAB PO SCH (08:49)
[2024-05-30] MEDS ORDERED: hydrALAZINE HCL 20 MG/ML VIAL IV PRN (11:52)
[2024-05-30] MEDS: amLODIPine BESYLATE 5 MG TAB PO ONE (12:26)
[2024-05-30] MEDS: DICLOFENAC SOD 1% GEL 100 GM TUBE EXT SCH (22:09)
[2024-05-31 06:15] LABS: Hematocrit (blood only) 35.2 % (37.0-47.0); Hemoglobin 10.9 g/dl (12.0-16.0); Mean Corpuscular Hemoglobin 30.9 pg (25.0-34.0); Mean Corpuscular Volume 99.7 fL (80.0-100.0); Mean Platelet Volume 9.4 fL (9.4-12.4); Platelet Count 234 K/uL (130-400); RDW Coefficient of Variation 19.9 % (11.5-14.5); RDW Standard Deviation 73.2 fL (36.4-46.3); Red Blood Count 3.53 M/uL (4.20-5.40); White Blood Count 4.98 K/ul (4.8-10.8)
[2024-05-31 06:26] LABS: BUN Creatinine Ratio 16.5 (10-20); Calcium 9.1 mg/dl (8.6-10.3); Creatinine Clr Calc Pharmacy 25.9 ml/min; Potassium 4.2 mmol/L (3.5-5.1)
[2024-05-31 06:35] LABS: INR 2.9 (0.9-1.1)
--- NOTE | 2024-05-31 07:50 | Hospitalist Progress Note ---
Date of Service May 31, 2024 Assessment & Plan (1) Pneumonia: (2) Anemia: (3) CKD (chronic kidney disease) stage 3, GFR 30-59 ml/min: (4) HTN (hypertension) with goal to be determined: (5) On warfarin therapy: (6) Generalized weakness: (7) Subtherapeutic anticoagulation: (8) Atrial fibrillation with RVR: (9) UTI (urinary tract infection): Plan Patient is an 83-year-old female with past medical history of hypertension, CKD, s/p AVR on Warfarin, frequent hospitalizations, hx of GI bleed presented for generalized weakness and concerns for PNA on admission Sx of weakness, nausea, runny nose x 1 week with cough, worsened 05/27 CXR noted RIGHT basal infiltrate suspicious for infectious vs aspiration. Biofire NEGATIVE on admission Now w/ concerns for more urinary source given ongoing sx/no significant improvement despite 5 days abx Weakness Initially concerning for PNA given R infiltrate on CXR but no sputum production/fever or hypoxia but completed Ceftriaxone/Azitro x 5 days and ongoing weakness/fatigue Urine cx with ENTEROCOCCUS VRE and given ongoing sx decision to treat although deferred switching abx 05/30 to prevent worsened renal function/multiple abx however given sx decision to treat. Cr 1.4 Did obtain blood cx prior to starting DAPTOMYCIN and will need f/u INR in range, no further afib/RVR on monitor. Prior Afib/RVR as below and remains on coumadin/telemetry monitoring. Metoprolol increased/continued PT/OT rec rehab, [facility] hopefully tomorrow Aortic valve replacement/aortic stenosis Chronic anticoagulation use, subtherapeutic INR Afib w/ RVR Hx AVR in the 1984 in [place], on coumadin therapy. [facility]. 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 BNP checked given CXR w/ CHF and NOT elevated and was not hypoxic. Prior IVF provided, diarrhea slowed but Cr 1.4 but reports clear urine and lisinopril resumed but will hold off lasix for now but if improvement can resume in AM URINE CX ABOVE VRE, abx changed and will f/u exam/BMP in AM Avoid nephrotoxins as able, renal dose meds Chronic stable diagnoses: moderate/extensive chronic microvascular ischemic disease - recent hospitalization with acute metabolic encephalopathy, currently alert and oriented x 3, intermittent confusion suspect 2nd to PNA/possible UTI and remains on ABx/adjusted for today given increased fatigue/weakness shoulder pain/ OA - continue Voltaren gel prn (monitor to hold as can cause bleeding as well) Dispo: continued inpatient stay - monitoring response to change in abx for urinary coverage given VRE in urine. hopeful [facility] 05/31 if improved Admission and Anticipated Discharge Date Admission Date: May 27, 2024 Supervising Physician Co-Signing Physician Notes The patient was not seen by me. The chart was reviewed. Case discussed with DAYNA Marrero. Agree with assessment and plan Subjective Evaluated this morning, resting in bed. Fatigued/feeling little worse. Loose stool but no significant diarrhea, cdiff order pending when next moves bowels as discussed. She reports she believes her urine is usual color, denies significant darkening or sx but given ongoing weakness, will change abx to treat VRE in the urine. Slightly dry on exam but defer lasix, has resumed lisinopril for BP per cardiology recs and will monitor renal function. PO hydration encouraged/would avoid IV for now. [facility] planned, hopefully tomorrow for IPR pending status today. Denies SOB/sputum production or CP. Some occasional nausea but no vomiting and abdomen Nontender. Questions/concerns addressed at this time. 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 w/ slight reduced visual field laterally but reports unchanged from baseline mm improved, slightly dry (improved from day prior) trachea midline Resp: even/unlabored but slightly diminished in the bases, no significant w/c/r, on room air CV: RRR, +AVR/click, +systolic murmur, no pitting edema GI: +BS, soft/NT no gallagher MSK/Neuro: nonfocal, answering questions appropriately, able to follow commands as asked Psych: AOx3, cooperative with exam Results & Data Results & Data Vital Signs (Past 12 Hours) Vital Signs Temp Pulse Pulse Resp BP Pulse Ox O2 Del Method 05/31/24 05:45 108 H 05/31/24 03:29 36.7 C 83 16 138/72 100 Room Air 05/30/24 23:00 36.4 C L 89 16 139/76 99 Room Air 05/30/24 21:44 81 PG Care Time/CCT Total # of Minutes Spent Total Time Spent with Patient: Total time spent is greater than 50% in coordination of care (as documented) at patient's floor/unit and/or counseling patient: Coding Level of Care Code 78409 SUB INP/OBS CARE 3/50MIN Diagnoses Pneumonia J18.9 Anemia D64.9 CKD (chronic kidney disease) stage 3, GFR 30-59 ml/min N18.30 HTN (hypertension) with goal to be determined I10 On warfarin therapy Z79.01 Generalized weakness R53.1 Subtherapeutic anticoagulation Z51.81; Z79.01 Atrial fibrillation with RVR I48.91 UTI (urinary tract infection) N39.0
[2024-05-31] MEDS: DAPTOmycin 375 MG in SYRINGE 0 ML IV SCH (09:47)
[2024-05-31 13:51] LABS: Appearance Urine Cloudy (Clear); Bacteria Urine Automated 3+ (None Seen); Bilirubin Urine Negative (Negative); Blood Urine 1+ (Negative); Color Urine Yellow; Glucose Urine UA Negative (Negative); Ketones Urine Negative (Negative); Leukocyte Esterase Urine 1+ (Negative); Nitrite Urine Negative (Negative); Protein Urine Negative (Negative); Specific Gravity Urine 1.014 (1.000-1.030); Urobilinogen Urine Negative (Negative); WBC Urine Automated 0-5 /hpf (0-5)
[2024-05-31] MEDS ORDERED: LATANOPROST 0.005% OP SOLN 2.5 ML BTL OPB SCH ×2 (14:00→21:00)
[2024-05-31] MEDS ORDERED: Nursing to Pharmacy Communication SCH (14:45)
[2024-05-31] MEDS: LATANOPROST 0.005% OP SOLN 2.5 ML BTL OPB SCH (14:59)
[2024-05-31] MEDS: BRIMONIDINE TARTRATE 0.2% 5ML OPB SCH (21:59)
--- NOTE | 2024-06-01 07:48 | Hospitalist Progress Note ---
Date of Service June 01, 2024 Assessment & Plan (1) Pneumonia: (2) Anemia: (3) CKD (chronic kidney disease) stage 3, GFR 30-59 ml/min: (4) HTN (hypertension) with goal to be determined: (5) On warfarin therapy: (6) Generalized weakness: (7) Subtherapeutic anticoagulation: (8) Atrial fibrillation with RVR: (9) UTI (urinary tract infection): Plan Patient is an 83-year-old female with past medical history of hypertension, CKD, s/p AVR on Warfarin, frequent hospitalizations, hx of GI bleed presented for generalized weakness and concerns for PNA on admission Sx of weakness, nausea, runny nose x 1 week with cough, worsened 05/27 CXR noted RIGHT basal infiltrate suspicious for infectious vs aspiration. Biofire NEGATIVE on admission Now w/ concerns for more urinary source given ongoing sx/no significant improvement despite 5 days abx as outlined below Weakness /UTI Initially concerning for PNA given R infiltrate on CXR but no sputum production/fever or hypoxia but completed Ceftriaxone/Azitro x 5 days and ongoing weakness/fatigue and notable Urine cx with ENTEROCOCCUS VRE -- given ongoing sx decision to treat although deferred switching abx 05/30 to prevent worsened renal function/multiple abx however given sx decision to treat. Cr 1.4. Placed on DAPTOMYCIN IV. Biofire/Cdiff testing NEGATIVE 05/31 given diarrhea (improved) 06/01:MUCH IMPROVED TODAY SINCE STARTING ABX FOR VRE IN URINE Daptomycin IV continued Blood cultures pending, NGTD Lisinopril resumed 05/31, Cr 1.58--> 1.48 and stable. INR in range 3.2 and continues on coumadin. No blood in stool reported and hgb improved/stable 12.5 BNP NOT elevated at 46 (was 90) and will defer on lasix at this time as does NOT appear volume overloaded and monitor to resume in AM Lidocaine patch, voltaren/heat to neck (prior inpatient work-up) Stable telemetry on increased metoprolol 25mg daily and will monitor. BP stable PT/OT rec rehab and hopefully dc to [facility] tomorrow on PO Linezolid/Nitrofurantoin to complete course for urine. Monitor labs/exam in AM #Aortic valve replacement, #Aortic Stenosis #Chronic anticoagulation use, #(subtherapeutic INR on admission # Afib/RVR Hx AVR in the 1985 in [place], on coumadin therapy. [facility]. BNP not elevated and decreased OFF lasix. Goal INR 2.5-3.5 Heparin gtt--> discontinued w/ INR in goal. Episode afib/RVR prior 05/27 converted lopressor IV x 1- cards consulted and remains on increased metoprolol to 25mg daily and will need new Rx at dc. Mag/K stable and continues on telemetry for now but could discontinue this afternoon if needing bed as has been stable. Overnight pulse ox w/o concerns underlying QUOC #HTN Metoprolol increased to 25mg daily for afib. Lisinopril 10mg daily resumed 05/31 and renal function improved on AM labs. Remains on amlodipine 5mg daily but if not needing for BP could consider holding given increased metoprolol and likely would cause worsened LE edema which could cloud concerns w/ HF -BP was 126/76 but 100/64 this afternoon and will place Amlodipine on HOLD for AM 05/31 #GIB Recent admission for bleeding AVM on EGD s/p cauterization. [place] BM reported. Continues PPI/H2. Hgb IMPROVED to 12.5 today and will monitor CBC /INR in AM #GERSON on CKD, possible UTI Suspected 2nd to MICHAEL/lasix/diarrhea but also possible 2nd to untreated UTI as above and Dapto IV started and lisinopril resumed 05/31 and BUN/Cr 31/1.48 and will continue to monitor. Prior was given IVF last week as appeared dry, lasix remains on HOLD Consideration to hold lisinopril in AM if needed but will continue for now given Cr 1.58--> 1.48 and placing amlodipine on hold for BP above. Improvement in PO intake Repeat urine cx pin-point growth from 05/31 (following start Daptomycin)- monitor final Renal dose meds/avoid toxins as above and monitor BMP in AM Chronic stable diagnoses: moderate/extensive chronic microvascular ischemic disease - recent hospitalization with acute metabolic encephalopathy, currently alert and oriented x 3, intermittent confusion prior suspect 2nd to possible PNA but more likely UTI and ABx/adjusted for 05/31 given increased fatigue/weakness with IMPROVEMENT above shoulder pain/ OA - continue Voltaren gel prn (monitor to hold as can cause bleeding as well), heating pad/lidocaine patch as needed with tylenol available Dispo: continued inpatient stay but is improving with Dapto IV. Continue IV abx and monitor blood/urine cx and if blood cx NGTD x 48hr in AM can plan to dc on PO abx to complete course to [facility]. Discussed w/ CM and [facility] able to take 06/02 Admission and Anticipated Discharge Date Admission Date: May 27, 2024 Supervising Physician Co-Signing Physician Notes The patient was not seen by me. The chart was reviewed. Case discussed with DAYNA Marrero. Agree with assessment and plan Subjective Eval this morning, sitting up at the side of the bed all morning per nursing. Per nurse who had w/ GIB, best she's ever seen her. Patient reports feeling much better with exception of neck discomfort which was worked up last time. Likes the topical voltaren which has been continued but discussed lidocaine patch/heat. Continue abx for urine given improvement, no SOB. Stable telemetry and renal function compared to prior. No blood in stool noted. INR stable and hgb to 12.5 .Ceftriaxone/aizthro have completed 5 days for prior suspected pna/ctx now discontinued and dapto alone. Discussed possible dc to rehab tomorrow if continued improvement on tx for UTI Questions/concerns addressed at this time. Physical Exam 2 Physical Exam: General: 83yo AA female sitting up at side of bed, reports feeling improved, some neck discomfort but nonfocal/not confused, appears improved Head atraumatic, baseline L eye glaucoma, reduced vision in her left eye but mm improved, trachea midline Resp: even/unlabored, no wheezing/rales, on room air, no tachypnea/cough CV: RRR, +systolic murmur/AVR click, no pitting edema, calves nontender and pulses present GI: +BS, soft/NT no gallagher, voiding spontaneously MSK/Neuro: nonfocal, generalized weakness improving, moves all extremities, some paravertebral spinal muscle tenderness/trapezius discomfort , reproducible female sitting up in bed, appears improved, NAD, no further dizziness Psych: alert to person/place/time, cooperative with exam Results & Data Results & Data Vital Signs (Past 12 Hours) Vital Signs Temp Pulse Pulse Pulse Resp BP Pulse Ox 06/01/24 07:00 73 06/01/24 03:37 36.5 C 75 16 110/64 95 06/01/24 03:00 84 05/31/24 22:44 85 05/31/24 22:09 36.2 C L 89 18 154/82 H 100 05/31/24 21:43 79 Pulse Ox O2 Del Method O2 Del Method 06/01/24 07:00 06/01/24 03:37 Room Air 06/01/24 03:00 99 Room Air 05/31/24 22:44 98 Room Air 05/31/24 22:09 Room Air 05/31/24 21:43 Laboratory Results 06/01/24 09:00 06/01/24 09:00 INR 3.2 Mag 2.3 BNP 46 CK 32 Negative cdiff PG Care Time/CCT Total # of Minutes Spent Total Time Spent with Patient: Total time spent is greater than 50% in coordination of care (as documented) at patient's floor/unit and/or counseling patient: Coding Level of Care Code 55874 SUB INP/OBS CARE 3/50MIN Diagnoses Pneumonia J18.9 Anemia D64.9 CKD (chronic kidney disease) stage 3, GFR 30-59 ml/min N18.30 HTN (hypertension) with goal to be determined I10 On warfarin therapy Z79.01 Generalized weakness R53.1 Subtherapeutic anticoagulation Z51.81; Z79.01 Atrial fibrillation with RVR I48.91 UTI (urinary tract infection) N39.0
[2024-06-01 09:29] LABS: Mean Platelet Volume 9.5 fL (9.4-12.4); Platelet Count 280 K/uL (130-400); White Blood Count 4.79 K/ul (4.8-10.8)
[2024-06-01 09:36] LABS: Calcium 9.8 mg/dl (8.6-10.3); Magnesium 2.3 mg/dl (1.7-2.4); Potassium 4.6 mmol/L (3.5-5.1)
[2024-06-01 09:40] LABS: INR 3.2 (0.9-1.1); Prothrombin Time 31.7 Seconds (9.0-12.0)
[2024-06-01 09:42] LABS: BUN Creatinine Ratio 20.9 (10-20)
[2024-06-01 09:56] LABS: Hemoglobin 12.5 g/dl (12.0-16.0); Mean Corpuscular Hemoglobin 31.6 pg (25.0-34.0); Mean Corpuscular Hgb Conc 30.5 g/dL (32.0-36.0); Mean Corpuscular Volume 103.8 fL (80.0-100.0); RDW Coefficient of Variation 19.9 % (11.5-14.5); RDW Standard Deviation 75.6 fL (36.4-46.3); Red Blood Count 3.95 M/uL (4.20-5.40)
[2024-06-01] MEDS: LIDOCAINE 5% 1 PATCH TD SCH (13:44)
[2024-06-02 06:13] LABS: Hematocrit (blood only) 34.5 % (37.0-47.0); Hemoglobin 10.4 g/dl (12.0-16.0); Mean Corpuscular Hemoglobin 30.2 pg (25.0-34.0); Mean Corpuscular Hgb Conc 30.1 g/dL (32.0-36.0); Mean Corpuscular Volume 100.3 fL (80.0-100.0); Mean Platelet Volume 9.4 fL (9.4-12.4); Platelet Count 234 K/uL (130-400); RDW Coefficient of Variation 19.9 % (11.5-14.5); RDW Standard Deviation 74.3 fL (36.4-46.3); Red Blood Count 3.44 M/uL (4.20-5.40); White Blood Count 3.96 K/ul (4.8-10.8)
[2024-06-02 06:34] LABS: BUN Creatinine Ratio 21.2 (10-20); Calcium 8.9 mg/dl (8.6-10.3); Creatinine Clr Calc Pharmacy 21.1 ml/min; Magnesium 2.2 mg/dl (1.7-2.4); Potassium 4.2 mmol/L (3.5-5.1)
[2024-06-02 06:36] LABS: INR 3.7 (0.9-1.1); Prothrombin Time 36.1 Seconds (9.0-12.0)
--- NOTE | 2024-06-02 07:39 | Hospitalist Progress Note ---
Date of Service June 02, 2024 Assessment & Plan (1) Pneumonia: (2) Anemia: (3) CKD (chronic kidney disease) stage 3, GFR 30-59 ml/min: (4) HTN (hypertension) with goal to be determined: (5) On warfarin therapy: (6) Generalized weakness: (7) Subtherapeutic anticoagulation: (8) Atrial fibrillation with RVR: (9) UTI (urinary tract infection): Plan Patient is an 83-year-old female with past medical history of hypertension, CKD, s/p AVR on Warfarin, frequent hospitalizations, hx of GI bleed presented for generalized weakness and concerns for PNA on admission Sx of weakness, nausea, runny nose x 1 week with cough, worsened 05/27 CXR noted RIGHT basal infiltrate suspicious for infectious vs aspiration. Biofire NEGATIVE on admission Now w/ concerns for more urinary source given ongoing sx/no significant improvement despite 5 days abx as outlined below Weakness /UTI Initially concerning for PNA given R infiltrate on CXR but no sputum production/fever or hypoxia but completed Ceftriaxone/Azitro x 5 days and ongoing weakness/fatigue and notable Urine cx with ENTEROCOCCUS VRE-- given ongoing sx decision to treat Placed on DAPTOMYCIN IV and IMPROVEMENT on 06/01 and blood cx NGTD and lisinopril resumed 05/31 w/ Cr 1.58--> 1.48. Repeat urine cx pending and remains on Dapto but dosing increased by pharmacy for VRE. 06/02 -- NOW CONCERNS W GI BLEEDING, BLACK BM overnight and hgb 12--> 10.4 however no abdmoinal pain and VSS but does have elevated BUN/Cr and lisinopril/amlodipine on hold and just continue metoprolol for now given prior afib last week. INR 3.7 and coumadin on hold this morning/GI re-consulted and placed on clear liquid for today and continue to monitor. Gentle IVF for elevated BUN/Cr and repeat blood counts this afternoon/monitoring BM or any abd pain and appreciate continued recs/assitance by GI. Topical voltaren gel has been discontinued. 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 Brown BM reported days prior despite some epigastric discomfort but hgb staying stable and continued on PPI BID/H2 and hgb had been stable but now w/ dark stools overnight/+fecal occult testing and INR >3.5 and coumadin held/clear diet ordered and GI to continue to monitor to see if any need for EGD if continued drop in hgb/further bleeding reported #Aortic valve replacement, #Aortic Stenosis #Chronic anticoagulation use, #(subtherapeutic INR on admission Hx AVR in the 1984 in [place], on coumadin therapy. [facility]. BNP not elevated and decreased OFF lasix. Goal INR 2.5-3.5 Heparin gtt--> discontinued w/ INR in goal prior but above range today and held/GIB concerns as above and monitor. -If any drops in INR less than goal needing bridge would opt for Lovenox SQ bridge rather than heparin gtt given recent/current concerns for bleeding issues. # Afib/RVR Did have episode afib/RVR prior 05/27 converted lopressor IV x 1- cards consulted and remains on increased metoprolol to 25mg daily and will need new Rx at dc. Remains SR on telemetry and mag/K replete and continues BB/coumadin as above #HTN Metoprolol increased to 25mg daily for afib as above Lisinopril resumed per cards but given elevated Cr 1.8 and concerns GIB placed on hold with amlodipine. BP 144/82 presently and will monitor. Significant on exam and suspect MICHAEL probably not ideal medication for patient and would opt for BB/lasix as needed but can monitor/adj as needed #GERSON on CKD, possible UTI Suspected 2nd to MICHAEL/lasix/diarrhea but also possible 2nd to untreated UTI as above and Dapto IV started as above however suspect current elevation combination of resumption of lisinopril/GI losses above. Cdiff negative but +fecal occult Hold lisionpril, IVF have been ordered for above Avoid toxins/renal dose meds as needed BMP in AM Chronic stable diagnoses: moderate/extensive chronic microvascular ischemic disease - recent hospitalization with acute metabolic encephalopathy, currently alert and oriented x 3, intermittent confusion prior suspect 2nd to possible PNA but more likely UTI and ABx/adjusted for 05/31 given increased fatigue/weakness with IMPROVEMENT shoulder pain/ OA - STOPPED Voltaren gel prn per GI/can cause issues. continue APAP/heat/lidocaine patch as needed Dispo: [facility] planned when medically stable however w/ hgb drop compared to yesterday with dark tarry stool remains inpatient/GI consulted. Suspect could have been old blood coming through given no abd pain on exam but will monitor given recent admission/AVM needing cauterization. Admission and Anticipated Discharge Date Admission Date: May 27, 2024 Subjective Eval this morning, dark/black stool overnight. No abdominal pain on exam but has some weakness. Discussed possible prior smaller amt bleeding when on heparin gtt but NO abdominal pain on exam. GI rec clear liquid diet and will monitor her overnight. Hopefully able to avoid EGD but if further drop will req. Questions/concerns addressed. Plan for [facility] once medically stable. Physical Exam 2 Physical Exam: General: 83yo AA F resting in bed, fatigued but NAD reports black BM overnight but denies abdominal pain/no overt tenderness Head atraumatic, baseline L eye glaucoma, reduced vision in her left eye, mm slightly dry, trachea midline Resp: even/unlabored, no wheezing/rales, on room air, no tachypnea/cough CV: RRR, +systolic murmur/AVR click, no pitting edema, calves nontender and pulses present GI: +BS, soft/NT no gallagher, voiding spontaneously MSK/Neuro: nonfocal, generalized weakness improving, moves all extremities, some paravertebral spinal muscle tenderness/trapezius discomfort , reproducible female sitting up in bed, appears improved, NAD, no further dizziness Psych: alert to person/place/time, cooperative with exam Results & Data Results & Data Vital Signs (Past 12 Hours) Vital Signs Temp Pulse Pulse Resp BP BP Pulse Ox 06/02/24 07:00 80 06/02/24 03:24 36.5 C 64 16 136/84 96 06/01/24 23:16 36.4 C L 66 18 113/70 97 06/01/24 22:30 06/01/24 22:00 62 06/01/24 20:09 36.2 C L 62 18 92/58 L 98 O2 Del Method 06/02/24 07:00 06/02/24 03:24 Room Air 06/01/24 23:16 Room Air 06/01/24 22:30 Room Air 06/01/24 22:00 06/01/24 20:09 Room Air Laboratory Results 06/02/24 05:41 06/02/24 05:41 INR 3.7 Mag 2.2 Fecal occult POSITIVE PG Care Time/CCT Total # of Minutes Spent Total Time Spent with Patient: Total time spent is greater than 50% in coordination of care (as documented) at patient's floor/unit and/or counseling patient: Coding Level of Care Code 00245 SUB INP/OBS CARE 350MIN Diagnoses Pneumonia J18.9 Anemia D64.9 CKD (chronic kidney disease) stage 3, GFR 30-59 ml/min N18.30 HTN (hypertension) with goal to be determined I10 On warfarin therapy Z79.01 Generalized weakness R53.1 Subtherapeutic anticoagulation Z51.81; Z79.01 Atrial fibrillation with RVR I48.91 UTI (urinary tract infection) N39.0
[2024-06-02] MEDS: SODIUM CHLORIDE 0.9% 1,000 ML IV SCH (09:09)
--- NOTE | 2024-06-02 09:42 | Gastrointestinal Consultation ---
Date of Consultation June 02, 2024 Assessment & Plan (1) Melena: Patient is an 83 year old female with history of duodenal ulcers and angiodysplastic lesion of duodenum on recent EGD. She had one episode of dark stool with slight drop in hgb in the setting of nsaid use. - I will stop her diclofenac sodium. I would recommend against nsaid use. - continue with protonix 40mg po bid. - would continue to monitor hgb/hct. transfuse as needed. - would continue to monitor. Since she already ate today, INR not ideal, and hgb not terribly low, will place on clears for today and monitor. - Further recommendations to follow, see MD eddy. Supervising Physician Co-Signing Physician Notes Possible recurrent upper GI bleeding. Patient anticoagulated. She has a history of a duodenal AVM that was oozing at recent endoscopy and multiple superficial duodenal ulcers with flat pigmented spots coagulated. Plan if there is continued bleeding was for an outpatient video capsule endoscopy at this point we will check her counts if they continue to fall and there is melena I think repeat upper endoscopy to evaluate previously treated sites for recurrent bleeding would be appropriate. If her counts are stable she can proceed with outpatient video capsule endoscopy. Is much as possible try to keep the INR between 2 and 3. History of Present Illness Reason for Consultation: drop in hgb, black stool x 1, dizzy, Hemoccult positive stool Requesting Physician: Mady WEATHERS Attending Physician: Akila Block MD History of Present Illness Patient is an 83 year old female with past medical history of hypertension, CKD, A fib with RVR s/p AVR on Warfarin, history of GI bleed who presented to the ED on 05/27 for generalized weakness and headache, admitted with concerns for pnuemonia. She reportedly had a small dark stool last evening. Hgb had dropped from 12.5 to 10.4. INR 3.7. she tells me that she has been keeping close eyes on her stools since her last admission where she had dark stools. She admits this was the first dark stool she has had since that time. She has been getting diclofenac while inpatient during this admission. no nausea, vomiting, acid reflux, dysphagia, abdominal pain, brbpr. She had breakfast today of pancakes and yogurt. she tolerated this well without issues. she was made NPO after this. EGD 04/24/24 esophageal stenosis, nonbleeding duodenal ulcers treated with b ipolar cautery, single angiodysplastic lesion of duodenum treated with bipolar cautery. Colonoscopy 03/21/24 diverticulosis, dark stool in cecum/ascending colon. Allergies Allergy/AdvReac Type Severity Reaction Status Date / Time No Known Allergies Allergy Verified 04/24/24 16:27 Home Medications Medication Instructions Recorded Confirmed Type latanoprost 0.005 % eye drops 1 drp OPB PM 07/31/23 05/27/24 History furosemide 20 mg tablet 20 mg PO DAILY #90 tabs 08/20/23 05/27/24 Rx lisinopril 10 mg tablet 10 mg PO DAILY #90 tabs 10/30/23 05/27/24 Rx Shower Chair #1 ea 11/20/23 05/21/24 Rx brimonidine 0.2 % eye drops 1 drp OPB UD 03/18/24 05/27/24 History dorzolamide 2 % eye drops 1 drp OPB UD 03/18/24 05/27/24 History metoprolol succinate 25 mg 12.5 mg PO QAM 03/18/24 05/27/24 History tablet,extended release 24 hr tramadol 50 mg tablet 50 mg PO TID PRN pain #0 tabs 03/30/24 05/27/24 Rx amlodipine 2.5 mg tablet 5 mg PO QAM 04/04/24 05/27/24 History famotidine 20 mg tablet 20 mg PO DAILY 30 days #30 tabs 04/30/24 05/27/24 Rx pantoprazole 40 mg tablet,delayed 40 mg PO BID #30 tabs 04/30/24 05/27/24 Rx release sucralfate 100 mg/mL oral 1 g (10 mL) PO QID #1,000 mL 04/30/24 05/27/24 Rx suspension gabapentin 100 mg capsule 100 mg PO DAILY@0700,1300 05/21/24 05/27/24 History gabapentin 100 mg capsule 200 mg PO HS 05/21/24 05/27/24 History warfarin 5 mg tablet 6 mg PO DAILY@1600 05/21/24 05/27/24 History Patient History Medical History (Updated 06/03/24 @ 11:24 by Bentley Mcarthur MD) Mitral stenosis Atrial fibrillation with RVR Upper GI bleed Acute blood loss anemia Aortic stenosis Chest tightness Hydronephrosis of right kidney Macrocytic anemia Current every day smoker On warfarin therapy Surgical History H/O mechanical aortic valve replacement Family History Brother Hypertension Heart disease Sister Hypertension Heart disease Mother Hypertension Heart disease Myocardial infarction Father Hypertension Heart disease Denies family history of Ovarian cancer Prostate cancer Breast cancer Lung cancer Colorectal cancer Stroke Social History Smoking Status: Current every day smoker Tobacco Type: Cigarettes Age Started Using Tobacco: 38; packs per day: 0.50; Cigarettes Per Day: 10; Second Hand Exposure: No; Do You Dip or Chew Tobacco: No; Tobacco Cessation Education Requested by Patient: No Hx Alcohol Use: No Hx Substance Use: No Preferred Language: Citizen Of [place] Communication Ability: Effective Visual Impairment: Limited Hearing Ability: Normal Players Assistant Required: No Beliefs That Will Affect Care: None marital status: / Current Living Situation: Alone Current Living Situation Comment: [employer] current occupational status: retired How many Children do You have: 4 Other Information That Helps Us Care for You: No Feels Safe at Home: Yes Safety Concerns: Feels Safe At This Time Childhood Exposure to Second-Hand Smoke: Yes Diet: low salt caffeine: Yes Dental Care, Regularly: No Physical Activity Frequency: Does not Exercise Seatbelt Use: always Sunscreen Use: No Assistive Devices: Walker Assistive Devices Comment: glasses not here Review of Systems Review of Systems: All systems reviewed & are unremarkable except as noted in HPI & below Physical Exam Constitutional: WD/WN, vitals as above Respiratory: normal respiratory effort, lungs clear to auscultation Cardiovascular: Rate/Rhythm: regular rate and regular rhythm Gastrointestinal (Abdomen): normal bowel sounds, soft, nontender, no hepatosplenomegaly Psychiatric: Orientation: alert and oriented x 3 Affect: euthymic affect Results & Data Vital Signs (Past 12 Hours) Vital Signs Temp Pulse Pulse Resp BP BP Pulse Ox 06/02/24 07:34 97.9 F 73 18 156/83 H 98 06/02/24 07:00 80 06/02/24 03:24 97.7 F 64 16 136/84 96 06/01/24 23:16 97.5 F L 66 18 113/70 97 06/01/24 22:30 06/01/24 22:00 62 O2 Del Method 06/02/24 07:34 Room Air 06/02/24 07:00 06/02/24 03:24 Room Air 06/01/24 23:16 Room Air 06/01/24 22:30 Room Air 06/01/24 22:00 Coding Level of Care Code 95911 INT INP/OBS CARE 2/55MIN Diagnoses Melena K92.1
[2024-06-02] MEDS: DAPTOmycin 675 MG in SYRINGE 0 ML IV SCH (10:10)
[2024-06-02 17:10] LABS: Hematocrit (blood only) 33.6 % (37.0-47.0); Hemoglobin 10.2 g/dl (12.0-16.0); Mean Corpuscular Hemoglobin 30.7 pg (25.0-34.0); Mean Corpuscular Hgb Conc 30.4 g/dL (32.0-36.0); Mean Corpuscular Volume 101.2 fL (80.0-100.0); Mean Platelet Volume 9.5 fL (9.4-12.4); Platelet Count 234 K/uL (130-400); RDW Coefficient of Variation 19.7 % (11.5-14.5); RDW Standard Deviation 74.1 fL (36.4-46.3); Red Blood Count 3.32 M/uL (4.20-5.40); White Blood Count 4.63 K/ul (4.8-10.8)
[2024-06-02] MEDS: SUCRALFATE 1 GM/10 ML UDC PO SCH (21:13)
[2024-06-02] MEDS: MELATONIN 3 MG TAB PO PRN (23:45)
[2024-06-03 10:46] LABS: Hematocrit (blood only) 30.4 % (37.0-47.0); Hemoglobin 9.2 g/dl (12.0-16.0); Mean Corpuscular Hemoglobin 30.7 pg (25.0-34.0); Mean Corpuscular Hgb Conc 30.3 g/dL (32.0-36.0); Mean Corpuscular Volume 101.3 fL (80.0-100.0); Mean Platelet Volume 9.2 fL (9.4-12.4); Platelet Count 207 K/uL (130-400); RDW Coefficient of Variation 19.8 % (11.5-14.5); RDW Standard Deviation 75.1 fL (36.4-46.3); White Blood Count 3.76 K/ul (4.8-10.8)
--- NOTE | 2024-06-03 10:54 | History & Physical Bridge Note ---
Date of Service June 03, 2024 History & Physical Bridge Note I have examined the patient, reviewed the History & Physical and in the interval since the performance of the History & Physical I have noted the following changes of clinical significance: Patient had continued dark stool over night. hgb dropped from 10.2 to 9.2. she has been NPO. no sob or chest pain. no other GI concerns. - will plan to perform an EGD today to further evaluate. Supervising Physician Co-Signing Physician Notes Hospitalist has given some vitamin K. Recheck INR in AM. If the INR is 3 or less we can safely perform a diagnostic procedure to evaluate for bleeding
[2024-06-03 11:02] LABS: BUN Creatinine Ratio 24.8 (10-20); Calcium 7.9 mg/dl (8.6-10.3); Creatinine Clr Calc Pharmacy 37.1 ml/min; Potassium 4.4 mmol/L (3.5-5.1)
[2024-06-03 11:10] LABS: INR 4.2 (0.9-1.1)
--- NOTE | 2024-06-03 11:21 | Anesthesiology Consultation ---
Date of Service June 03, 2024 Assessment & Plan (1) Encounter for pre-operative examination: Chart Review Chart Review: Acceptable Risk for Surgery History Surgery Operation Date: 06/03/24 17:00 Proposed Procedures p Esophagogastroduodenoscopy Dr. Tim Dumont MD Height/Weight Height: 5 ft 3 in Weight: 77.1 kg Allergies Allergy/AdvReac Type Severity Reaction Status Date / Time No Known Allergies Allergy Verified 04/24/24 16:27 Medications Home Medications Medication Instructions Recorded Confirmed Last Taken latanoprost 0.005 % eye drops 1 drp OPB PM 07/31/23 05/27/24 04/22/24 furosemide 20 mg tablet 20 mg PO DAILY #90 tabs 08/20/23 05/27/24 04/22/24 lisinopril 10 mg tablet 10 mg PO DAILY #90 tabs 10/30/23 05/27/24 04/22/24 Shower Chair #1 ea 11/20/23 05/21/24 Unknown brimonidine 0.2 % eye drops 1 drp OPB UD 03/18/24 05/27/24 04/22/24 dorzolamide 2 % eye drops 1 drp OPB UD 03/18/24 05/27/24 04/22/24 metoprolol succinate 25 mg 12.5 mg PO QAM 03/18/24 05/27/24 04/22/24 tablet,extended release 24 hr tramadol 50 mg tablet 50 mg PO TID PRN pain #0 tabs 03/30/24 05/27/24 04/22/24 amlodipine 2.5 mg tablet 5 mg PO QAM 04/04/24 05/27/24 04/22/24 famotidine 20 mg tablet 20 mg PO DAILY 30 days #30 tabs 04/30/24 05/27/24 Unknown pantoprazole 40 mg tablet,delayed 40 mg PO BID #30 tabs 04/30/24 05/27/24 Unknown release sucralfate 100 mg/mL oral 1 g (10 mL) PO QID #1,000 mL 04/30/24 05/27/24 Unknown suspension gabapentin 100 mg capsule 100 mg PO DAILY@0700,1300 05/21/24 05/27/24 Unknown gabapentin 100 mg capsule 200 mg PO HS 05/21/24 05/27/24 Unknown warfarin 5 mg tablet 6 mg PO DAILY@1600 05/21/24 05/27/24 Unknown Active Medications Generic Name Dose Route Start Last Admin Trade Name Domingo PRN Reason Stop Dose Admin Acetaminophen 650 mg 05/27/24 18:06 06/03/24 06:01 Acetaminophen 325 Mg Tab PO 06/26/24 18:05 650 mg Q4H PRN Administration Pain or Fever Amlodipine Besylate 5 mg 05/28/24 09:00 06/01/24 09:44 Amlodipine Besylate 5 Mg Tab PO 06/27/24 08:59 5 mg QAM MCKENZIE Administration Brimonidine Tartrate 1 drops 05/31/24 21:15 06/03/24 09:06 Brimonidine Tartrate 0.2% 5ml OPB 06/30/24 21:14 1 drops TID MCKENZIE Administration Dorzolamide HCl 2 drops 05/29/24 16:30 06/03/24 09:07 Dorzolamide Hcl 2% Oph Soln 10 Ml Btl OPB 06/28/24 16:29 2 drops TID MCKENZIE Administration Famotidine 20 mg 05/28/24 09:00 06/03/24 09:04 Famotidine 20 Mg Tab PO 06/27/24 08:59 20 mg DAILY MCKENZIE Administration Furosemide 20 mg 05/28/24 09:00 05/28/24 08:23 Furosemide 20 Mg Tab PO 06/27/24 08:59 20 mg DAILY MCKENZIE Administration Gabapentin 100 mg 05/28/24 07:00 06/03/24 06:01 Gabapentin 100 Mg Cap PO 06/27/24 06:59 100 mg DAILY@0700,1300 MCKENZIE Administration Gabapentin 200 mg 05/27/24 21:00 06/02/24 21:13 Gabapentin 100 Mg Cap PO 06/26/24 20:59 200 mg HS MCKENZIE Administration Guaifenesin 600 mg 05/28/24 21:00 06/03/24 09:05 Guaifenesin 600 Mg Tabcr PO 06/27/24 20:59 600 mg Q12 MCKENZIE Administration Daptomycin 675 mg/ Syringe 13.5 mls @ 3.75 mls/min 06/02/24 10:00 06/02/24 10:10 IV 06/10/24 09:59 3.75 mls/min Q48H MCKENZEI Administration Protocol Latanoprost 1 drops 05/31/24 15:00 06/02/24 12:37 Latanoprost 0.005% Op Soln 2.5 Ml Btl OPB 06/30/24 14:59 1 drops Q24H MCKENZIE Administration Lidocaine 1 patch 06/01/24 11:00 06/03/24 09:02 Lidocaine 5% 1 Patch TD 07/01/24 10:59 1 patch QAM MCKENZIE Administration Lisinopril 10 mg 05/28/24 09:00 06/01/24 09:44 Lisinopril 10 Mg Tab PO 06/27/24 08:59 10 mg DAILY MCKENZIE Administration Melatonin 6 mg 06/02/24 23:30 06/02/24 23:45 Melatonin 3 Mg Tab PO 07/02/24 23:29 6 mg HS PRN Administration Sleep Metoprolol Succinate 25 mg 05/30/24 09:00 06/03/24 09:03 Metoprolol Succ 25mg Ext Rel Tab PO 06/29/24 08:59 25 mg QAM MCKENZIE Administration Miscellaneous 1 each 06/01/24 21:00 06/02/24 21:16 Remove Lidoderm Patch N/A 07/01/24 20:59 1 each DAILY@2100 MCKENZIE Administration Ondansetron HCl 4 mg 05/27/24 18:06 05/28/24 04:14 Ondansetron Inj 2 Mg/Ml 2 Ml Vial IV 06/26/24 18:05 4 mg Q6H PRN Administration Nausea Pantoprazole Sodium 40 mg 05/27/24 21:00 06/03/24 09:05 Pantoprazole 40 Mg Tab PO 06/26/24 20:59 40 mg BID MCKENZIE Administration Sucralfate 1 gm 06/02/24 21:00 06/03/24 09:02 Sucralfate 1 Gm/10 Ml Udc PO 07/02/24 20:59 1 gm QID MCKENZIE Administration Warfarin Sodium 5 mg 05/27/24 16:45 06/01/24 17:26 Warfarin Sod 5 Mg Tab PO 06/26/24 16:44 5 mg DAILY@1600 MCKENZIE Administration Past Medical History Medical History (Updated 06/03/24 @ 11:24 by Bentley Mcarthur MD) Mitral stenosis Atrial fibrillation with RVR Upper GI bleed Acute blood loss anemia Aortic stenosis Chest tightness Hydronephrosis of right kidney Macrocytic anemia Current every day smoker On warfarin therapy Past Family History Family History Brother Hypertension Heart disease Sister Hypertension Heart disease Mother Hypertension Heart disease Myocardial infarction Father Hypertension Heart disease Denies family history of Ovarian cancer Prostate cancer Breast cancer Lung cancer Colorectal cancer Stroke Past Surgical History Surgical History H/O mechanical aortic valve replacement Social History Smoking Status: Current every day smoker Smoking cigarettes per day: 10 Do You Dip or Chew Tobacco: No Hx Alcohol Use: No Hx Substance Use: No Physical Exam Vital Signs Last Vital Signs Temp 36.7 C 06/03/24 07:52 Pulse 72 06/03/24 07:52 Resp 12 06/03/24 07:52 BP 140/83 06/03/24 07:52 Pulse Ox 99 06/03/24 07:52 O2 Del Method Room Air 06/03/24 07:52 Testing Laboratory Results 06/03/24 10:10 06/03/24 10:10 PT 40.0 Seconds (9.0-12.0) H 06/03/24 10:10 INR 4.2 (0.9-1.1) H 06/03/24 10:10 APTT 45 Seconds (21-31) H 05/27/24 11:15 Urine Color Yellow 05/31/24 12:55 Urine Appearance Cloudy (Clear) A 05/31/24 12:55 Urine pH 6.0 (4.5-7.5) 05/31/24 12:55 Ur Specific [place] 1.014 (1.000-1.030) 05/31/24 12:55 Urine Protein Negative (Negative) 05/31/24 12:55 Urine Glucose (UA) Negative (Negative) 05/31/24 12:55 Urine Ketones Negative (Negative) 05/31/24 12:55 Urine Nitrite Negative (Negative) 05/31/24 12:55 Ur Leukocyte Esterase 1+ (Negative) H 05/31/24 12:55 Urine WBC (Auto) 0-5 /hpf (0-5) 05/31/24 12:55 Urine RBC (Auto) 3-5 /hpf (0-2) H 05/31/24 12:55 U Hyaline Cast (Auto) 3-5 /lpf (0-2) H 05/31/24 12:55 U Epithel Cells (Auto) 3-5 /hpf (0-2) H 05/31/24 12:55 Urine Bacteria (Auto) 3+ (None Seen) H 05/31/24 12:55 05/31/24 09:12 Aerobic Blood Culture - Preliminary Blood No growth in Aerobic bottle after 48 hours. Anaerobic Blood Culture - Final 05/31/24 09:15 Aerobic Blood Culture - Preliminary Blood No growth in Aerobic bottle after 48 hours. Anaerobic Blood Culture - Final 05/31/24 12:55 Urine Culture - Final Urine,Clean Catch Three types of organisms present, all high counts probable skin stefano. No further identifications or sensitivities to follow. 05/28/24 21:29 Urine Culture - Final Urine,Clean Catch Enterococcus faecium VRE 05/27/24 13:50 Urine Culture - Final Urine,Clean Catch Three types or organisms present, all moderate counts probable skin stefano. No further identifications or sensitivities to follow. Electrocardiogram Date: 05/27/24 Findings: + AFIB @ (129) and + RBBB Echocardiogram Date: 03/19/24 EF: >70% Other Findings: + LVH (severe) Valvular Disease: + (moderate) and + MS (moderate)
--- NOTE | 2024-06-03 12:51 | Communication Note ---
Date of Service: June 03, 2024 EGD cancelled for today. INR in 4 range. This will need to be corrected prior procedure.
[2024-06-03] MEDS: PHYTONADIONE 5 MG in DEXTROSE 5% 50 ML IV ONE (14:00)
--- NOTE | 2024-06-03 14:44 | Hospitalist Progress Note ---
"Date of Service June 03, 2024 Assessment & Plan (1) Pneumonia: (2) Upper GI bleed: (3) Anemia: (4) UTI (urinary tract infection): Plan Patient is an 83-year-old female with past medical history of hypertension, CKD, s/p AVR on Warfarin, hx of GI bleed presented for generalized weakness, runny nose and cough x 1 week. CXR on admission concerning for PNA with Right basal infitrate. Biofire negative. Received 5 days of antibiotics for penumonia, without much improvement of weakness and fatigue. UC with enterococcus and Daptomycin started on 06/01. Weakness /UTI/ PNA CXR concerning for PNA given R infiltrate completed Ceftriaxone/Azithro x 5 days and ongoing weakness/fatigue. 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 Black BM reported overnight 06/01 Drop in Hgb 12 -->10.4 --> 9.2 Hold Coumadin. INR 4.2 today so unable to have EGD. 5mg VIT K given, recheck INR this evening GI consulted - stop diclofenac. plan for EGD when able, continue clear liquid diet. Continue BID PPI and pepcid #Aortic valve replacement | Aortic Stenosis |Chronic anticoagulation use, Hx AVR in the 1984 in [place], on Coumadin therapy (goal 2.5-3.5). Follows with [facility]. Initially on Heparin gtt but discontinued as INR in range. Now Coumadin on hold with elevated INR and GIB Discussed with Dr. Beth 06/03 - given age of her valve, recommend heparin drip if INR < 2.5 # Afib/RVR Episode afib/RVR prior 05/27 converted Lopressor IV x 1- cards consulted thought to be from acute illness. Increased metoprolol to 25mg daily and will need new Rx at mi. Remains SR on telemetry #HTN Metoprolol increased to 25mg daily for afib as above Lisinopril/lasix and amlodipine held - kidney function has improved, BP acceptable. Will have to monitor volume status and aortic stenosis for resuming in setting of GI bleed #GERSON on CKD Suspected 2nd to MICHAEL/lasix/diarrhea Hold lisinopril/lasix. Recieved IVFs, Cr improved, GERSON resolved. AM BMP #Shoulder pain/ OA - STOPPED Voltaren gel. continue APAP/heat/lidocaine patch as needed Dispo: [place] [facility] planned when medically stable however with current GI bleed DVT proh: held/reversed with GIB LM for granddaughter 06/03 Admission and Anticipated Discharge Date Admission Date: May 27, 2024 Supervising Physician Co-Signing Physician Notes PA Supervision Note: I did not personally see or examine the patient today, but I verified all regalado points of DAYNA Figueroa's assessment and plan with the following exceptions/additions: Repeat labs this evening show INR down to 2.5-no further Vit K to be given and will check INR in AM Hgb went back up to 11, no further bleeding likely EGD tomorrow Subjective Patient seen sitting up at tthe side of bed eating lunch. Reports no abdominal pain did have another episode of black stool this afternoon reports chronic dizziness - denies vision changes Tele - SR IVCD 60s Review of Systems Review of Systems: All systems reviewed & are unremarkable except as noted in Subjective Physical Exam Physical Exam: General: NAD, VS as above, sitting up in bed, eating lunch Resp: normal respiratory effort, lungs clear to auscultation CV: RRR, + murmur, Abd: normal bowel sounds, non tender, soft Extremities: Moves all extremities, no edema Neuro: A&O x3, Results & Data Results & Data Vital Signs (Past 12 Hours) Vital Signs Temp Pulse Pulse Resp BP Pulse Ox O2 Del Method 06/03/24 11:59 98.4 F 68 14 130/82 96 Room Air 06/03/24 07:52 98.1 F 72 12 140/83 99 Room Air 06/03/24 07:23 78 06/03/24 03:31 97.3 F L 58 L 18 126/60 99 Room Air Laboratory Results cbc, chemistry, INR reviewed mag reviewed PG Care Time/CCT Total # of Minutes Spent Total Time Spent with Patient: Total time spent is greater than 50% in coordination of care (as documented) at patient's floor/unit and/or counseling patient: Coding Level of Care Code 50927 SUB INP/OBS CARE 3/50MIN Diagnoses Pneumonia J18.9 Upper GI bleed K92.2 Anemia D64.9 UTI (urinary tract infection) N39.0"
[2024-06-03] MEDS ORDERED: Nursing to Pharmacy Communication SCH (15:00)
[2024-06-03 18:40] LABS: Hematocrit (blood only) 36.5 % (37.0-47.0); Mean Corpuscular Hemoglobin 30.8 pg (25.0-34.0); Mean Corpuscular Hgb Conc 30.1 g/dL (32.0-36.0); Mean Corpuscular Volume 102.2 fL (80.0-100.0); Mean Platelet Volume 9.2 fL (9.4-12.4); Platelet Count 277 K/uL (130-400); RDW Coefficient of Variation 19.8 % (11.5-14.5); RDW Standard Deviation 74.7 fL (36.4-46.3); Red Blood Count 3.57 M/uL (4.20-5.40); White Blood Count 5.15 K/ul (4.8-10.8)
[2024-06-03 18:51] LABS: INR 2.5 (0.9-1.1); Prothrombin Time 24.7 Seconds (9.0-12.0)
[2024-06-03] MEDS: SUCRALFATE 1 GM/10 ML UDC PO SCH (20:32)
[2024-06-03] MEDS: HEPARIN 25000 UNIT/500 ML D5W 25,000 UNITS/500 ML BAG IV SCH (20:34)
[2024-06-03] MEDS: Heparin IV Adult Wt-Based Low-Dose *NO* INITIAL Bolus Protocol IV SCH (20:34)
[2024-06-04 03:33] LABS: ANTI-Xa, UFH(UnfractionatedHep 0.34 IU/ml (0.3-0.7); INR 1.6 (0.9-1.1); Prothrombin Time 16.9 Seconds (9.0-12.0)
[2024-06-04 08:52] LABS: Hemoglobin 10.2 g/dl (12.0-16.0); Mean Corpuscular Hemoglobin 31.3 pg (25.0-34.0); Mean Corpuscular Hgb Conc 30.9 g/dL (32.0-36.0); Mean Corpuscular Volume 101.2 fL (80.0-100.0); Mean Platelet Volume 9.3 fL (9.4-12.4); Platelet Count 235 K/uL (130-400); RDW Coefficient of Variation 19.5 % (11.5-14.5); RDW Standard Deviation 73.6 fL (36.4-46.3); Red Blood Count 3.26 M/uL (4.20-5.40); White Blood Count 3.89 K/ul (4.8-10.8)
[2024-06-04 09:08] LABS: BUN Creatinine Ratio 17.3 (10-20); Calcium 8.6 mg/dl (8.6-10.3); Creatinine Clr Calc Pharmacy 42.1 ml/min
[2024-06-04 09:18] LABS: ANTI-Xa, UFH(UnfractionatedHep 0.42 IU/ml (0.3-0.7)
--- NOTE | 2024-06-04 09:33 | History & Physical Bridge Note ---
Date of Service June 04, 2024 History & Physical Bridge Note I have examined the patient, reviewed the History & Physical and in the interval since the performance of the History & Physical I have noted the following changes of clinical significance: no further dark stools since yesterday. INR 1.6 this morning. hgb 10.2. she has been NPO. no nausea, vomiting, abdominal pain, chest pain, or sob. - plan for EGD today for further evaluation of anemia. Supervising Physician Co-Signing Physician Notes Hemoglobin stable. To evaluate previously noted duodenal ulcers and AVM. Heparin on hold x 4 hours
--- NOTE | 2024-06-04 13:00 | Anesthesiology Consultation ---
Date of Service June 04, 2024 Assessment & Plan Chart Review Chart Review: Acceptable Risk for Surgery and Patient NOT seen in Pre Admission Testing Consults Requested none ASA ASA4 Proposed Anesthesia Anesthesia Type: MAC History Surgery Operation Date: 06/04/24 16:30 Proposed Procedures p Esophagogastroduodenoscopy Dr. Tim Dumont MD Height/Weight Height: 5 ft 3 in Weight: 80.1 kg Allergies Allergy/AdvReac Type Severity Reaction Status Date / Time No Known Allergies Allergy Verified 04/24/24 16:27 Medications Home Medications Medication Instructions Recorded Confirmed Last Taken latanoprost 0.005 % eye drops 1 drp OPB PM 07/31/23 05/27/24 04/22/24 furosemide 20 mg tablet 20 mg PO DAILY #90 tabs 08/20/23 05/27/24 04/22/24 lisinopril 10 mg tablet 10 mg PO DAILY #90 tabs 10/30/23 05/27/24 04/22/24 Shower Chair #1 ea 11/20/23 05/21/24 Unknown brimonidine 0.2 % eye drops 1 drp OPB UD 03/18/24 05/27/24 04/22/24 dorzolamide 2 % eye drops 1 drp OPB UD 03/18/24 05/27/24 04/22/24 metoprolol succinate 25 mg 12.5 mg PO QAM 03/18/24 05/27/24 04/22/24 tablet,extended release 24 hr tramadol 50 mg tablet 50 mg PO TID PRN pain #0 tabs 03/30/24 05/27/24 04/22/24 amlodipine 2.5 mg tablet 5 mg PO QAM 04/04/24 05/27/24 04/22/24 famotidine 20 mg tablet 20 mg PO DAILY 30 days #30 tabs 04/30/24 05/27/24 Unknown pantoprazole 40 mg tablet,delayed 40 mg PO BID #30 tabs 04/30/24 05/27/24 Unknown release sucralfate 100 mg/mL oral 1 g (10 mL) PO QID #1,000 mL 04/30/24 05/27/24 Unknown suspension gabapentin 100 mg capsule 100 mg PO DAILY@0700,1300 05/21/24 05/27/24 Unknown gabapentin 100 mg capsule 200 mg PO HS 05/21/24 05/27/24 Unknown warfarin 5 mg tablet 6 mg PO DAILY@1600 05/21/24 05/27/24 Unknown Active Medications Generic Name Dose Route Start Last Admin Trade Name Domingo PRN Reason Stop Dose Admin Acetaminophen 650 mg 05/27/24 18:06 06/04/24 08:22 Acetaminophen 325 Mg Tab PO 06/26/24 18:05 650 mg Q4H PRN Administration Pain or Fever Amlodipine Besylate 5 mg 05/28/24 09:00 06/01/24 09:44 Amlodipine Besylate 5 Mg Tab PO 06/27/24 08:59 5 mg QAM MCKENZIE Administration Brimonidine Tartrate 1 drops 05/31/24 21:15 06/04/24 08:01 Brimonidine Tartrate 0.2% 5ml OPB 06/30/24 21:14 1 drops TID MCKENZIE Administration Dorzolamide HCl 2 drops 05/29/24 16:30 06/04/24 08:01 Dorzolamide Hcl 2% Oph Soln 10 Ml Btl OPB 06/28/24 16:29 2 drops TID MCKENZIE Administration Famotidine 20 mg 05/28/24 09:00 06/04/24 08:08 Famotidine 20 Mg Tab PO 06/27/24 08:59 20 mg DAILY MCKENZIE Administration Furosemide 20 mg 05/28/24 09:00 05/28/24 08:23 Furosemide 20 Mg Tab PO 06/27/24 08:59 20 mg DAILY MCKENZIE Administration Gabapentin 100 mg 05/28/24 07:00 06/04/24 05:55 Gabapentin 100 Mg Cap PO 06/27/24 06:59 100 mg DAILY@0700,1300 MCKENZIE Administration Gabapentin 200 mg 05/27/24 21:00 06/03/24 20:31 Gabapentin 100 Mg Cap PO 06/26/24 20:59 200 mg HS MCKENZIE Administration Guaifenesin 600 mg 05/28/24 21:00 06/04/24 08:02 Guaifenesin 600 Mg Tabcr PO 06/27/24 20:59 600 mg Q12 MCKENZIE Administration Heparin Sodium/Dextrose 25,000 units in 500 mls @ 0 mls/hr 06/03/24 19:15 06/04/24 08:17 Heparin 61544 Unit/500 Ml D5w IV 07/03/24 19:14 0 units/hr .Q0M MCKENZIE 0 mls/hr Titration Protocol 0 UNITS/HR Latanoprost 1 drops 05/31/24 15:00 06/03/24 14:06 Latanoprost 0.005% Op Soln 2.5 Ml Btl OPB 06/30/24 14:59 1 drops Q24H MCKENZIE Administration Lidocaine 1 patch 06/01/24 11:00 06/04/24 08:02 Lidocaine 5% 1 Patch TD 07/01/24 10:59 1 patch QAM MCKENZIE Administration Lisinopril 10 mg 05/28/24 09:00 06/01/24 09:44 Lisinopril 10 Mg Tab PO 06/27/24 08:59 10 mg DAILY MCKENZIE Administration Melatonin 6 mg 06/02/24 23:30 06/03/24 21:46 Melatonin 3 Mg Tab PO 07/02/24 23:29 6 mg HS PRN Administration Sleep Metoprolol Succinate 25 mg 05/30/24 09:00 06/04/24 08:03 Metoprolol Succ 25mg Ext Rel Tab PO 06/29/24 08:59 25 mg QAM MCKENZIE Administration Miscellaneous 1 each 06/01/24 21:00 06/03/24 20:32 Remove Lidoderm Patch N/A 07/01/24 20:59 1 each DAILY@2100 MCKENZIE Administration Ondansetron HCl 4 mg 05/27/24 18:06 05/28/24 04:14 Ondansetron Inj 2 Mg/Ml 2 Ml Vial IV 06/26/24 18:05 4 mg Q6H PRN Administration Nausea Pantoprazole Sodium 40 mg 05/27/24 21:00 06/04/24 08:03 Pantoprazole 40 Mg Tab PO 06/26/24 20:59 40 mg BID MCKENZIE Administration Sucralfate 1 gm 06/03/24 21:00 06/04/24 08:02 Sucralfate 1 Gm/10 Ml Udc PO 07/03/24 20:59 1 gm QID MCKENZIE Administration Warfarin Sodium 5 mg 05/27/24 16:45 06/01/24 17:26 Warfarin Sod 5 Mg Tab PO 06/26/24 16:44 5 mg DAILY@1600 MCKENZIE Administration NPO Date Last Intake of Fluids: 06/04/24 Time Last Intake of Fluids: 09:45 Date Last Intake of Solids: 06/02/24 Past Medical History Medical History Mitral stenosis Atrial fibrillation with RVR Upper GI bleed Acute blood loss anemia Aortic stenosis Chest tightness Hydronephrosis of right kidney Macrocytic anemia Current every day smoker On warfarin therapy Exercise / Class Metabolic Activity III < 4 Walking/Shop/Light housework Past Family History Family History Brother Hypertension Heart disease Sister Hypertension Heart disease Mother Hypertension Heart disease Myocardial infarction Father Hypertension Heart disease Denies family history of Ovarian cancer Prostate cancer Breast cancer Lung cancer Colorectal cancer Stroke Past Surgical History Surgical History H/O mechanical aortic valve replacement Past Anesthesia History No Hx of Anesthesia Complications and No Family Hx of Anesthesia Complications History of PONV No Hx of PONV and No Hx of Motion Sickness Social History Smoking Status: Current every day smoker Smoking cigarettes per day: 10 Do You Dip or Chew Tobacco: No Hx Alcohol Use: No Hx Substance Use: No Physical Exam Vital Signs Last Vital Signs Temp 36.6 C 06/04/24 12:51 Pulse 80 06/04/24 12:51 Resp 18 06/04/24 12:51 BP 159/88 H 06/04/24 12:51 Pulse Ox 99 06/04/24 12:51 O2 Del Method Room Air 06/04/24 12:51 Testing Laboratory Results 06/04/24 08:29 06/04/24 08:29 PT 16.9 Seconds (9.0-12.0) H 06/04/24 02:31 INR 1.6 (0.9-1.1) H 06/04/24 02:31 APTT 45 Seconds (21-31) H 05/27/24 11:15 Urine Color Yellow 05/31/24 12:55 Urine Appearance Cloudy (Clear) A 05/31/24 12:55 Urine pH 6.0 (4.5-7.5) 05/31/24 12:55 Ur Specific [place] 1.014 (1.000-1.030) 05/31/24 12:55 Urine Protein Negative (Negative) 05/31/24 12:55 Urine Glucose (UA) Negative (Negative) 05/31/24 12:55 Urine Ketones Negative (Negative) 05/31/24 12:55 Urine Nitrite Negative (Negative) 05/31/24 12:55 Ur Leukocyte Esterase 1+ (Negative) H 05/31/24 12:55 Urine WBC (Auto) 0-5 /hpf (0-5) 05/31/24 12:55 Urine RBC (Auto) 3-5 /hpf (0-2) H 05/31/24 12:55 U Hyaline Cast (Auto) 3-5 /lpf (0-2) H 05/31/24 12:55 U Epithel Cells (Auto) 3-5 /hpf (0-2) H 05/31/24 12:55 Urine Bacteria (Auto) 3+ (None Seen) H 05/31/24 12:55 05/31/24 09:12 Aerobic Blood Culture - Preliminary Blood No growth in Aerobic bottle after 48 hours. Anaerobic Blood Culture - Final 05/31/24 09:15 Aerobic Blood Culture - Preliminary Blood No growth in Aerobic bottle after 48 hours. Anaerobic Blood Culture - Final 05/31/24 12:55 Urine Culture - Final Urine,Clean Catch Three types of organisms present, all high counts probable skin stefano. No further identifications or sensitivities to follow. 05/28/24 21:29 Urine Culture - Final Urine,Clean Catch Enterococcus faecium VRE 05/27/24 13:50 Urine Culture - Final Urine,Clean Catch Three types or organisms present, all moderate counts probable skin stefano. No further identifications or sensitivities to follow. Electrocardiogram Date: 05/27/24 Findings: + AFIB @ (@ 129 w/RVR) and + RBBB Chest X-Ray Date: 05/27/24 Findings: + pulmonary vascular congestion (mild) Echocardiogram Date: 05/28/24 EF: > 70% LV Function: normal RWMA: + none Other Findings: + LVH (severe: LV cavity small) Valvular Disease: + no significant valvular disease
[2024-06-04] MEDS ORDERED: ATROPINE SULFATE 0.1 MG/ML 10ML SYR IV PRN (13:12)
[2024-06-04] MEDS ORDERED: ePHEDrine sulfate 50 MG/ML AMP IV PRN (13:12)
--- NOTE | 2024-06-04 13:19 | Communication Note ---
Date of Service: June 04, 2024 EGD Small bit of retained food debris in the fundus suction. No blood noted in the stomach. Previously noted AVM scar present without persistent AVM. Previous noted duodenal ulcers have healed. Can resume her heparin. Outpatient video capsule endoscopy recommended.
--- NOTE | 2024-06-04 13:24 | GI REPORT ---
[facility] Patient: CASTILLO CHAMORRO : 1940 Sex at : Female Age: 83 Years Procedure: Upper GI endoscopy Date: 06/04/2024 Attending Physician: Zackery Dumont MD Referring MD: Teresa Mota Md Indications: - History of melena or upper GI bleeding. Recurrent symptoms for evaluation of healing of previously known duodenal ulcers and AVM post treatment Medications: - Monitored Anesthesia Care Complications: - No immediate complications. Estimated Blood Loss: - Estimated blood loss: None. Procedure: - The egd scope was introduced through the mouth and advanced to the second part of the duodenum. - The upper GI endoscopy was accomplished without difficulty. - The patient tolerated the procedure well. Findings: - One benign-appearing, intrinsic mild stenosis was found at the gastroesophageal junction. The stenosis was traversed. - Retained fluid was found in the gastric fundus. Liquid and suctionable. Fundus cleared of fluid - The entire examined stomach was normal. - Normal mucosa was found in the entire duodenum. Impression: - Benign-appearing esophageal stenosis. - Retained gastric fluid. - Liquid and suctionable. Fundus cleared of fluid - Normal stomach. - Normal mucosa was found in the entire examined duodenum. - No specimens collected. 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 Resolved. There is no blood noted in the upper GI tract. I would proceed with previously recommended plan which would be an outpatient video capsule endoscopy. Patient can resume heparin/Coumadin. I would leave this patient on chronic PPI therapy Recommendation: Procedure Code(s): - 59334, Esophagogastroduodenoscopy, flexible, transoral; diagnostic, including collection of specimen(s) by brushing or washing, when performed (separate procedure) Diagnosis Code(s): - K22.2, Esophageal obstruction CPT(R) - 2022 copyright [employer] [place] [employer]. All Rights Reserved. The CPT codes, CCI edits and ICD codes generated are intended as suggestions and were generated based on input data. These codes are preliminary and upon cake batter mixer review may be revised to meet current compliance and payer requirements. The provider is responsible for the final determination of appropriate codes, and modifiers. Zackery Dumont MD This document has been electronically signed. Note Initiated:06/04/2024 Note Completed:06/04/2024 1:24 PM [email or web address]\[id number]
--- NOTE | 2024-06-04 14:04 | Hospitalist Progress Note ---
"Date of Service June 04, 2024 Assessment & Plan (1) Pneumonia: (2) Upper GI bleed: (3) Anemia: (4) UTI (urinary tract infection): Plan Patient is an 83-year-old female with past medical history of hypertension, CKD, s/p AVR on Warfarin, hx of GI bleed presented for generalized weakness, runny nose and cough x 1 week. CXR on admission concerning for PNA with Right basal infitrate. Biofire negative. Received 5 days of antibiotics for pneumonia, without much improvement of weakness and fatigue. UC with enterococcus and Daptomycin started on 06/01. Weakness /UTI/ PNA CXR concerning for PNA given R infiltrate completed Ceftriaxone/Azithro x 5 days and ongoing weakness/fatigue. Urine cx with ENTEROCOCCUS VRE-- Daptomycin started 06/01, symptoms improving. 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 Black BM reported overnight 06/01, but have become more brown since Drop in Hgb, but stable GI consulted - stop diclofenac. s/p EGD without acute bleed. Rec outpatient video capsule endoscopy Continue BID PPI and pepcid #Aortic valve replacement | Aortic Stenosis |Chronic anticoagulation use, Hx AVR in the 1984 in [place], on Coumadin therapy (goal 2.5-3.5). Follows with [facility]. Coumadin reversed for EGD with 5 mg of vitamin K. EGD without acute bleed, Coumadin resumed for 06/04. Patient remains on heparin drip but confirmed with pharmacy has the kidney function to be able to bridge with Lovenox 80 mg twice d aily # Afib/RVR Episode afib/RVR prior 05/27 converted Lopressor IV x 1- cards consulted thought to be from acute illness. Increased metoprolol to 25mg daily and will need new Rx at dc. Remains SR on telemetry #HTN Metoprolol increased to 25mg daily for afib as above lasix held - kidney function has improved, BP acceptable. Will have to monitor volume status and aortic stenosis for resuming in setting of GI bleed resume amlodipine and lisinopril for a.m. #GERSON on CKD Suspected 2nd to MICHAEL/lasix/diarrhea Recieved IVFs, Cr improved, GERSON resolved. AM BMP #Shoulder pain/ OA - STOPPED Voltaren gel. continue APAP/heat/lidocaine patch as needed Dispo: [facility] planned when medically stable, Possibly as early as tomorrow DVT proh: heparin drip, Coumadin restarted 06/04 LM for granddaughter 06/03. Granddaughter updated by phone 06/04 Admission and Anticipated Discharge Date Admission Date: May 27, 2024 Supervising Physician Co-Signing Physician Notes DAYNA Supervision Note: I did not personally see or examine the patient today, but I verified all regalado points of DAYNA Figueroa's assessment and plan with the following exceptions/additions: None Subjective Patient seen prior to EGD. Reports that her stool was a little bit more brown today Denies any urinary symptoms Is anxious to get out of the hospital and to have a diet again Telemetry sinus rhythm with IVCD 60s to 70s Review of Systems Review of Systems: All systems reviewed & are unremarkable except as noted in Subjective Physical Exam Physical Exam: General: NAD, VS as above, lying in bed Resp: normal respiratory effort, lungs clear to auscultation CV: RRR, + murmur, Abd: normal bowel sounds, non tender, soft Extremities: Moves all extremities, no edema Neuro: A&O x3, Results & Data Results & Data Vital Signs (Past 12 Hours) Vital Signs Temp Pulse Pulse Pulse Resp BP BP 06/04/24 13:50 69 18 178/79 H 06/04/24 13:35 71 18 171/99 H 06/04/24 13:21 82 18 125/67 06/04/24 12:51 97.9 F 80 18 159/88 H 06/04/24 12:33 177/85 H 06/04/24 12:08 98.4 F 71 15 170/100 H 06/04/24 08:28 78 06/04/24 08:11 98.1 F 77 18 180/92 H 06/04/24 08:00 97.3 F L 91 H 14 06/04/24 03:28 98.2 F 76 20 119/68 Pulse Ox O2 Del Method 06/04/24 13:50 100 Room Air 06/04/24 13:35 98 Room Air 06/04/24 13:21 100 Room Air 06/04/24 12:51 99 Room Air 06/04/24 12:33 06/04/24 12:08 99 Room Air 06/04/24 08:28 06/04/24 08:11 99 Room Air 06/04/24 08:00 100 Room Air 06/04/24 03:28 99 Room Air Laboratory Results CBC, chemistry, coagulation studies reviewed Diagnostic Findings EGD reviewed PG Care Time/CCT Total # of Minutes Spent Total Time Spent with Patient: Total time spent is greater than 50% in coordination of care (as documented) at patient's floor/unit and/or counseling patient: Coding Level of Care Code 82413 SUB INP/OBS CARE 3/50MIN Diagnoses Pneumonia J18.9 Upper GI bleed K92.2 Anemia D64.9 UTI (urinary tract infection) N39.0"
--- NOTE | 2024-06-04 14:35 | Anesthesiology Progress Note ---
Date of Service June 04, 2024 Anesthesia Post Procedure Vital Signs Vital Signs: Temp Pulse Pulse Pulse Resp BP BP 06/04/24 13:50 69 18 178/79 H 06/04/24 13:35 71 18 171/99 H 06/04/24 13:21 82 18 125/67 06/04/24 12:51 36.6 C 80 18 159/88 H 06/04/24 12:33 177/85 H 06/04/24 12:08 36.9 C 71 15 170/100 H 06/04/24 08:28 78 06/04/24 08:11 36.7 C 77 18 180/92 H 06/04/24 08:00 36.3 C L 91 H 14 06/04/24 03:28 36.8 C 76 20 119/68 06/03/24 23:21 36.6 C 91 H 20 115/70 06/03/24 23:20 06/03/24 22:45 73 06/03/24 20:00 36.9 C 95 H 20 164/91 H 06/03/24 16:01 36.8 C 87 20 141/72 H Pulse Ox O2 Del Method 06/04/24 13:50 100 Room Air 06/04/24 13:35 98 Room Air 06/04/24 13:21 100 Room Air 06/04/24 12:51 99 Room Air 06/04/24 12:33 06/04/24 12:08 99 Room Air 06/04/24 08:28 06/04/24 08:11 99 Room Air 06/04/24 08:00 100 Room Air 06/04/24 03:28 99 Room Air 06/03/24 23:21 99 Room Air 06/03/24 23:20 Room Air 06/03/24 22:45 06/03/24 20:00 99 Room Air 06/03/24 16:01 100 Room Air Pain Intensity Head: Pain Intensity: 0 Neck: Pain Intensity: 0 Transfer of Care Handoff Completed per policy Notes Mental Status: alert / awake / arousable Patient Amnestic to Procedure: Yes Nausea / Vomiting: adequately controlled Pain: adequately controlled Airway Patency, RR, SpO2: stable & adequate BP & HR: stable & adequate Hydration State: stable & adequate Anesthetic Complications: no major complications apparent
[2024-06-04] MEDS ORDERED: Nursing to Pharmacy Communication SCH (16:15)
[2024-06-04] MEDS: LIDOCAINE 2% 2 ML VIAL/AMP(20MG/ML) INFIL ONE (17:04)
[2024-06-04] MEDS: PROPOFOL IV EMULSION 10 MG/ML 20 ML VIAL IV ONE (17:05)
[2024-06-05 07:10] LABS: BUN Creatinine Ratio 14.1 (10-20); Calcium 8.7 mg/dl (8.6-10.3); Creatinine Clr Calc Pharmacy 45.1 ml/min; Potassium 3.8 mmol/L (3.5-5.1)
[2024-06-05 07:13] LABS: ANTI-Xa, UFH(UnfractionatedHep 0.49 IU/ml (0.3-0.7); INR 1.2 (0.9-1.1)
[2024-06-05] MEDS ORDERED: DAPTOmycin 700 MG in SYRINGE 0 ML IV SCH (10:00)
--- NOTE | 2024-06-05 10:36 | Gastroenterology Progress Note ---
Date of Service June 05, 2024 Assessment & Plan (1) Anemia: Plan - continue with protonix 40mg bid. she should continue with this on discharge. - recommend she avoid all nsaids, including topical diclofenac. - she is to be set up for capsule endoscopy as outpatient to further evaluate anemia. Admission and Anticipated Discharge Date Admission Date: May 27, 2024 Supervising Physician Co-Signing Physician Notes No bleeding from the upper GI tract. Duodenal ulcerations healed. Continue long-term PPI therapy. Previously noted duodenal AVM was not present and with no bleeding seen in the duodenum. Recommend proceed with planned outpatient video capsule endoscopy. Subjective patient reports that her bowels moved this morning and seems to be becoming less dark. She reports it was brown this morning. no nausea, vomiting, abdominal pain. She tolerated breakfast well. EGD 06/04/24 -One benign-appearing, intrinsic mild stenosis was found at the gastroesophageal junction. The stenosis was traversed. - Retained fluid was found in the gastric fundus. Liquid and suctionable. Fundus cleared of fluid - The entire examined stomach was normal. - Normal mucosa was found in the entire duodenum. Review of Systems Review of Systems: All systems reviewed & are unremarkable except as noted in HPI & below Physical Exam Constitutional: WD/WN, vitals as above Respiratory: normal respiratory effort, lungs clear to auscultation Cardiovascular: Rate/Rhythm: regular rate and regular rhythm Gastrointestinal (Abdomen): normal bowel sounds, soft, nontender, no hepatosplenomegaly Psychiatric: Orientation: alert and oriented x 3 Affect: euthymic affect Results & Data Results & Data Vital Signs (Past 12 Hours) Vital Signs Temp Pulse Pulse Resp BP Pulse Ox O2 Del Method 06/05/24 08:00 Room Air 06/05/24 07:30 98.2 F 82 18 128/92 99 Room Air 06/05/24 07:24 89 06/05/24 03:26 98.4 F 78 18 139/69 97 Room Air 06/04/24 23:18 98.2 F 76 18 155/75 H 98 Room Air Coding Level of Care Code 23305 SUB INP/OBS CARE 05/03MIN Diagnoses Anemia D64.9
[2024-06-05] MEDS: LINEZOLID 600 MG TAB PO SCH (10:58)
--- NOTE | 2024-06-05 11:03 | Hospitalist Progress Note ---
"Date of Service June 05, 2024 Assessment & Plan (1) Pneumonia: (2) Upper GI bleed: (3) Anemia: (4) UTI (urinary tract infection): Plan Patient is an 83-year-old female with past medical history of hypertension, CKD, s/p AVR on Warfarin, hx of GI bleed presented for generalized weakness, runny nose and cough x 1 week. CXR on admission concerning for PNA with Right basal infitrate. Biofire negative. Received 5 days of antibiotics for pneumonia, without much improvement of weakness and fatigue. UC with enterococcus and Daptomycin started on 06/01. Weakness /UTI/ PNA CXR concerning for PNA given R infiltrate completed Ceftriaxone/Azithro x 5 days and ongoing weakness/fatigue. Urine cx with ENTEROCOCCUS VRE-- Daptomycin started 06/01, symptoms improving. 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 Black BM reported overnight 06/01, but have become more brown since Drop in Hgb, but stable GI consulted - stop diclofenac. s/p EGD without acute bleed. Rec outpatient video capsule endoscopy Continue BID PPI and pepcid #Aortic valve replacement | Aortic Stenosis |Chronic anticoagulation use, Hx AVR in the 1984 in [place], on Coumadin therapy (goal 2.5-3.5). Follows with [facility]. Coumadin reversed for EGD with 5 mg of vitamin K. EGD without acute bleed, Coumadin resumed for 06/04. Patient remains on heparin drip but confirmed with pharmacy has the kidney function to be able to bridge with Lovenox 80 mg twice daily # Afib/RVR Episode afib/RVR prior 05/27 converted Lopressor IV x 1- cards consulted thought to be from acute illness. Increased metoprolol to 25mg daily and will need new Rx at dc. Remains SR on telemetry #HTN Metoprolol increased to 25mg daily for afib as above lasix held - kidney function has improved, BP acceptable. Will have to monitor volume status and aortic stenosis for resuming in setting of GI bleed amlodipine and lisinopril resumed and creatinine stable #GERSON on CKD - Suspected 2nd to MICHAEL/lasix/diarrhea. Received IVFs, Cr improved, GERSON resolved. #Shoulder pain/ OA - STOPPED Voltaren gel. continue APAP/heat/lidocaine patch as needed Dispo: [facility] planned when medically stable, probably 06/07 DVT proh: heparin drip, Coumadin restarted 06/04 LM for granddaughter 06/03. Granddaughter updated by phone 06/04 Admission and Anticipated Discharge Date Admission Date: May 27, 2024 Supervising Physician Co-Signing Physician Notes PA Supervision Note: I did not personally see or examine the patient today, but I verified all regalado points of DAYNA Figueroa's assessment and plan with the following exceptions/additions: None Subjective Patient seen lying in bed, had a loose bowel movement this morning - says it was dark but not black. Neck pain - has known arthritis, receptive to offering heat and tylenol tolerating liquid diet will increase for lunch Tele SR IVCD 70s Review of Systems Review of Systems: All systems reviewed & are unremarkable except as noted in Subjective Physical Exam Physical Exam: General: NAD, VS as above, lying in bed Resp: normal respiratory effort, lungs clear to auscultation CV: RRR, + murmur, Abd: normal bowel sounds, non tender, soft Extremities: Moves all extremities, no edema Neuro: A&O x3, Results & Data Results & Data Vital Signs (Past 12 Hours) Vital Signs Temp Pulse Pulse Resp BP Pulse Ox O2 Del Method 06/05/24 08:00 Room Air 06/05/24 07:30 98.2 F 82 18 128/92 99 Room Air 06/05/24 07:24 89 06/05/24 03:26 98.4 F 78 18 139/69 97 Room Air 06/04/24 23:18 98.2 F 76 18 155/75 H 98 Room Air Laboratory Results BMP and INR reviewed PG Care Time/CCT Total # of Minutes Spent Total Time Spent with Patient: Total time spent is greater than 50% in coordination of care (as documented) at patient's floor/unit and/or counseling patient: Coding Level of Care Code 15065 SUB INP/OBS CARE 3/50MIN Diagnoses Pneumonia J18.9 Upper GI bleed K92.2 Anemia D64.9 UTI (urinary tract infection) N39.0"
[2024-06-05 11:28] LABS: Hematocrit (blood only) 31.5 % (37.0-47.0); Hemoglobin 9.7 g/dl (12.0-16.0); Mean Corpuscular Hemoglobin 30.8 pg (25.0-34.0); Mean Corpuscular Hgb Conc 30.8 g/dL (32.0-36.0); Mean Platelet Volume 10.1 fL (9.4-12.4); Platelet Count 254 K/uL (130-400); RDW Coefficient of Variation 19.4 % (11.5-14.5); RDW Standard Deviation 71.5 fL (36.4-46.3); Red Blood Count 3.15 M/uL (4.20-5.40)
[2024-06-06 07:53] LABS: Hematocrit (blood only) 37.4 % (37.0-47.0); Hemoglobin 11.8 g/dl (12.0-16.0); Mean Corpuscular Hemoglobin 31.1 pg (25.0-34.0); Mean Corpuscular Hgb Conc 31.6 g/dL (32.0-36.0); Mean Corpuscular Volume 98.4 fL (80.0-100.0); Mean Platelet Volume 9.6 fL (9.4-12.4); Platelet Count 288 K/uL (130-400); RDW Coefficient of Variation 19.1 % (11.5-14.5); RDW Standard Deviation 69.8 fL (36.4-46.3); White Blood Count 5.66 K/ul (4.8-10.8)
[2024-06-06 08:17] LABS: ANTI-Xa, UFH(UnfractionatedHep 0.65 IU/ml (0.3-0.7); INR 1.3 (0.9-1.1); Prothrombin Time 13.8 Seconds (9.0-12.0)
[2024-06-06 08:19] LABS: Calcium 9.6 mg/dl (8.6-10.3); Potassium 4.2 mmol/L (3.5-5.1)
[2024-06-06 08:25] LABS: BUN Creatinine Ratio 13.4 (10-20)
--- NOTE | 2024-06-06 10:27 | Hospitalist Progress Note ---
"Date of Service June 06, 2024 Assessment & Plan (1) Pneumonia: (2) Upper GI bleed: (3) Anemia: (4) UTI (urinary tract infection): Plan Patient is an 83-year-old female with past medical history of hypertension, CKD, s/p AVR on Warfarin, hx of GI bleed presented for generalized weakness, runny nose and cough x 1 week. CXR on admission concerning for PNA with Right basal infiltrate. Biofire negative. Received 5 days of antibiotics for pneumonia, without much improvement of weakness and fatigue. UC with enterococcus and Daptomycin started on 06/01, switch to linezolid to complete 5-day course. Blood cultures finalized as negative. Weakness /UTI/ PNA CXR concerning for PNA given R infiltrate completed Ceftriaxone/Azithro x 5 days and ongoing weakness/fatigue. Urine cx with ENTEROCOCCUS VRE-- Daptomycin started 06/01, symptoms improving. 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 Black BM reported overnight 06/01, but have become more brown since GI consulted - stop diclofenac. s/p EGD without acute bleed. Rec outpatient video capsule endoscopy Continue BID PPI and pepcid. Hemoglobin has remained stable #Aortic valve replacement | Aortic Stenosis |Chronic anticoagulation use, Hx AVR in the 1984 in [place], on Coumadin therapy (goal 2.5-3.5). Follows with [facility]. Coumadin reversed for EGD with 5 mg of vitamin K. EGD without acute bleed, Coumadin resumed for 06/04. Patient remains on heparin drip but confirmed with pharmacy has the kidney function to be able to bridge with Lovenox 80 mg twice daily Patient with multiple changes of her Coumadin dosing over the last few admissions, looks like historically she has been on 5 mg a day. 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 Increased metoprolol to 25mg daily and will need new Rx at ct. Remains SR on telemetry #HTN Metoprolol increased to 25mg daily for afib as above lasix held - kidney function has improved, BP acceptable. Will have to monitor volume status and aortic stenosis for resuming in setting of GI bleed amlodipine and lisinopril resumed and creatinine stable #GERSON on CKD - Suspected 2nd to MICHAEL/lasix/diarrhea. Received IVFs, Cr improved, GERSON resolved. #Shoulder pain/ OA - STOPPED Voltaren gel. continue APAP/heat/lidocaine patch as needed Dispo: [facility] planned when medically stable, probably 06/07 DVT proh: heparin drip, Coumadin restarted 06/04 LM for granddaughter 06/03. Granddaughter updated by phone 06/04 family updated in the room evening of 06/05 Admission and Anticipated Discharge Date Admission Date: May 27, 2024 Supervising Physician Co-Signing Physician Notes PA Supervision Note: I did not personally see or examine the patient today, but I verified all regalado points of DAYNA Figueroa's assessment and plan with the following exceptions/additions: None Subjective patient seen lying in bed, states not feeling as well today because her joints hurt. Tolerating full foods without issue Telemetry sinus rhythm IVCD 60s Review of Systems Review of Systems: All systems reviewed & are unremarkable except as noted in Subjective Physical Exam Physical Exam: General: NAD, VS as above, lying in bed Resp: normal respiratory effort, lungs clear to auscultation CV: RRR, + murmur, Abd: normal bowel sounds, non tender, soft Extremities: Moves all extremities, trace nonpitting lower extremity edema Neuro: A&O x3, Results & Data Results & Data Vital Signs (Past 12 Hours) Vital Signs Temp Pulse Pulse Resp BP BP Pulse Ox 06/06/24 08:13 98.4 F 79 15 171/87 H 99 06/06/24 06:25 104 H 06/06/24 03:36 97.9 F 65 18 136/68 94 06/05/24 23:27 97.9 F 67 18 109/74 98 06/05/24 22:34 75 O2 Del Method 06/06/24 08:13 Room Air 06/06/24 06:25 06/06/24 03:36 Room Air 06/05/24 23:27 Room Air 06/05/24 22:34 Laboratory Results CBC chemistry and INR reviewed PG Care Time/CCT Total # of Minutes Spent Total Time Spent with Patient: Total time spent is greater than 50% in coordination of care (as documented) at patient's floor/unit and/or counseling patient: Coding Level of Care Code 51115 SUB INP/OBS CARE 2/35MIN Diagnoses Pneumonia J18.9 Upper GI bleed K92.2 Anemia D64.9 UTI (urinary tract infection) N39.0"
[2024-06-07 03:12] VITALS: RESP 18
[2024-06-07 07:20] LABS: ANTI-Xa, UFH(UnfractionatedHep 0.51 IU/ml (0.3-0.7); INR 1.6 (0.9-1.1); Prothrombin Time 16.6 Seconds (9.0-12.0)
[2024-06-07 07:44] VITALS: BP 137/77; TEMP 98.8; O2SAT 97
[2024-06-07] MEDS ORDERED: ENOXAPARIN 1 MG/KG SC SCH (08:45)
--- NOTE | 2024-06-07 09:22 | Discharge Summary ---
"Discharge Summary Date of Service June 07, 2024 Principal Dx & Hospital Course #1 = Principal Diagnosis (1) Pneumonia: (2) Upper GI bleed: (3) Anemia: (4) UTI (urinary tract infection): Plan Weakness /UTI/ PNA Patient is an 83-year-old female with past medical history of hypertension, CKD, s/p AVR on Warfarin, hx of GI bleed presented for generalized weakness, runny nose and cough x 1 week. CXR on admission concerning for PNA with Right basal infiltrate. Biofire negative. Received 5 days of antibiotics for pneumonia, without much improvement of weakness and fatigue. UC with enterococcus and Daptomycin started on 06/01, switch to linezolid to complete 5-day course. Blood cultures finalized as negative. PT/OT recommended rehab and discharged to [facility] today, 06/07. 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 Black BM reported overnight 06/01, but have become more brown since. GI consulted - stop diclofenac. s/p EGD without acute bleed. Rec outpatient video capsule endoscopy. Continue BID PPI and pepcid. Hemoglobin has remained stable #Aortic valve replacement | Aortic Stenosis |Chronic anticoagulation use, Hx AVR in the 1984 in [place], on Coumadin therapy (goal 2.5-3.5). Follows with [facility]. Coumadin reversed for EGD with 5 mg of vitamin K. EGD without acute bleed, Co umadin resumed for 06/04. Was on heparin drip but converted to 80mg Lovenox BID for discharge. Patient with multiple changes of her Coumadin dosing over the last few admissions, looks like historically she has been on 5 mg a day. 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 Increased metoprolol to 25mg daily. Otherwise, SR on monitor. #HTN - continue amlodopine, lisinopril and metoprolol. Lasix held - can resume when needed based on kidney function/edema, held with starting lovenox. #GERSON on CKD - Suspected 2nd to MICHAEL/lasix/diarrhea. Received IVFs, Cr improved, GERSON resolved. #Shoulder pain/ OA - STOPPED Voltaren gel/Aspercream. continue APAP/heat/lidocaine patch as needed Dispo: discharge to [facility] today LM for granddaughter 06/03. Granddaughter updated by phone 06/04 family updated in the room evening of 06/05 Notes For Next Care Provider Gi recommended outpatient video capsule endoscopy needs [facility] follow up - close INR monitoring Medication Changes From Visit Metoprolol increased to 25mg daily Admission HPI Per Admitting Provider Patient is an 83-year-old female with past medical history of hypertension, CKD, s/p AVR on Coumadin, frequent hospitalizations, hx of GI bleeding here due to generalized weakness for a week. Patient refers today she woke up feeling worse and more weak than usual. Additionally she had some runny nose, nausea and vomit. She had poor po intake in the last day due to symptoms. She had some sporadic cough as well, no sputum production. She was recently discharge from hospital due to a GI bleeding ( 05/20). Following hospitalization she was sent to [facility] for rehab. She states she was doing well until this week when symptoms started. She lifes alone and take care of herself. Niece help sometimes. She has a hx of AVR on Warfarin. She denied any black stool, or hematemesis. She refers being complaint with her medications. She denied any chest pain, palpitations, SOB, abdominal pain, diarrhea or any other symptoms. No leg edema Discharge Exam General: NAD, VS as above Resp: normal respiratory effort, lungs clear to auscultation CV: RRR, + murmur, Abd: normal bowel sounds, non tender, no hepatosplenomegaly Extremities: Moves all extremities, trace edema Neuro: A&O x3, Skin: intact, no lesions noted Discharge Plan Discharge Items Patient Disposition: Transfer Long Term Fac Reason For Visit: PNA, GENERALIZED WEAKNESS Discharge Diagnosis: UTI, GI bleed Activity: As commented below Activity Comment: work with therapy to get stronger Non-emergency contact: Primary Care Provider Call non-emergency contact if: you have any medication questions, your pain is not controlled and your temperature is above 101 Follow-up/Referrals: Song Pritchard CRNP [Primary Care Provider] - (Follow up after discharge from rehab ) Kiel Beth MD [Physician] - (follow up after discharge from rehab ) Diet: Heart Healthy Addtl Attending Provider Instructions: Ms. Ty, You were hospitalized after being weak, this was found to be from a UTI. You completed your antibiotics while you were here. You will be going to rehab to get stronger. There were also concerns for a GI bleed, we had to reverse your coumadin with Vitamin K and you were on a heparin drip while we restarted the coumadin. You will be on lovenox shots twice a day until your INR is therapeutic. Will need to closely follow with [facility] for monitoring of your INR. Please STOP using aspercreme at home - this can be contributing to your continued GI bleed. Also do NOT use voltaren gel. Med changes: - stop voltaren, aspercream - increased metoprolol to 25mg daily Follow ups: - PCP [facility] - cardiology for INR monitoring - GI for video endoscopy For [facility]: * INR 1.6 day of discharge, coumadin restarted 06/04 * switched to lovenox 80mg BID 3 AM - recommend recheck INR in 2-3 days. Monitor BMP with lovenox * Recommend holding lasix as edema allows while on lovenox Pending Studies at Discharge: No Stand-Alone Forms: My [facility] Skilled Items Patient informed of condition?: Yes DNR: Yes Discharge Level of Care: Skilled Communicable Disease: No Discharge Prognosis: Stable Lines: None Urinary Catheter: No Medications and DC Order Prescriptions: New metoprolol succinate 25 mg Tablet Extended Release 24 Hr 25 mg PO QAM Qty: 30 0RF enoxaparin [Lovenox] 80 mg/0.8 mL Syringe 80 mg subcut Q12H 14 Days Qty: 22.4 0RF Continued lisinopril 10 mg tablet 10 mg PO DAILY Qty: 90 3RF warfarin 5 mg tablet 6 mg PO DAILY@1600 Patient Comments: Currently taking 5 mg daily. last INR 5.3 on 05/09 (DME) Shower Chair Misc See Rx Instructions .Route Qty: 1 0RF Rx Instructions: As directed, bench that extends from outside to inside of tub latanoprost 0.005 % Drops 1 drp OPB PM Rx Instructions: both eyes pantoprazole 40 mg Tablet,Delayed Release (Dr/Ec) 40 mg PO BID Qty: 30 0RF dorzolamide 2 % drops 1 drp OPB UD Rx Instructions: Last filled 01/05/24 x50 day supply. Original Directions: 1 drop into both eyes twice daily brimonidine 0.2 % drops 1 drp OPB UD Rx Instructions: Last filled 02/14/24 x16 day supply. Original Directions: 1 drop into both eyes TID tramadol 50 mg tablet 50 mg PO TID PRN (Reason: pain) Qty: 0 0RF amlodipine 2.5 mg tablet 5 mg PO QAM gabapentin 100 mg capsule 200 mg PO HS gabapentin 100 mg capsule 100 mg PO DAILY@0700,1300 famotidine 20 mg Tablet 20 mg PO DAILY 30 Days Qty: 30 0RF Held furosemide 20 mg tablet 20 mg PO DAILY Qty: 90 3RF Hold Instructions: Provider's Order Discontinued sucralfate 100 mg/mL Suspension 1 g PO QID Qty: 1000 0RF metoprolol succinate 25 mg tablet extended release 24 hr 12.5 mg PO QAM Discharge Orders: Discharge Order (Routine); Ordered 06/07/24 Ordered By: Leona Figueroa Admission Data Admit Date/Time: 05/27/24 16:21 Attending Provider: Neymar Mckeon Admit Provider: Artur Damon Primary Care Provider: Song Pritchard Other Providers: Demarco Grover; [facility]; [facility]; [place],[facility]; Ad Hilario Jr Other Interventions: Discharge Summary Assessment (RN) Last Done: 06/04/24 13:24 Hospital Stay Data Consultations 05/27/24 14:08 ED Decision to Admit Stat 05/29/24 15:37 Consult Cardiology Routine 06/02/24 07:54 Consult Gastroenterology Routine Procedures Performed Operation Date: 06/04/24 16:30 Actual Procedures p Esophagogastroduodenoscopy - Zackery Dumont MD Diagnostic Imagining Performed Chest X-Ray 05/27/24 11:47 XR chest 1V portable CLINICAL HISTORY: weakness COMPARISON STUDY: 04/03/2024 FINDINGS: Cardiomegaly is persistent. Pulmonary vascular congestion is also persistent although less pronounced than the prior study. There is a groundglass airspace opacity in the right lung base is a new finding. Severe arthritis is noted in both shoulder joints. IMPRESSION: Mild congestive heart failure is persistent. Right basal infiltrate could be infectious or aspiration. ACT 112: Negative or not required by law. Electronically signed by: Jena Mcelroy M.D. 05/27/2024 12:[address] 05/27/24 11:47 CT OF THE HEAD WITHOUT CONTRAST CLINICAL HISTORY: weak, dizzy, warfarin, [place] COMPARISON STUDY: Head CT April 03, 2024. CT DOSE: 625.8 mGy.cm TECHNIQUE: Helical axial images of the head were obtained without IV contrast. Automated exposure control was utilized for the study. A dose lowering technique was utilized adhering to the principles of ALARA. FINDINGS: No acute intracranial hemorrhage, midline shift or mass effect is present. White matter hypodensities are unchanged and favor small vessel disease. The ventricular system is unremarkable. The basal cisterns are patent. No extra-axial collections are present. There are no findings to suggest acute dural sinus thrombosis or acute territorial infarct. No significant calvarial abnormalities are present. Visualized portions of the sinuses and mastoid air cells are clear. IMPRESSION: No acute intracranial findings. No change in appearance of the brain. ACT 112: Negative or not required by law. Electronically signed by: Nathanael Yip M.D. 05/27/2024 12:21 PM Chest X-Ray 05/28/24 15:48 Clinical History: Follow-up pulmonary congestion Technique: A frontal view of the chest was obtained Comparison is made to the prior examination dated 04/03/2024 Findings: There are no confluent pulmonary infiltrates. The heart size is at the upper limit of normal. No pleural effusion or pneumothorax is seen. There is suspected mild pulmonary vascular congestion, less severe than before No fracture is noted. There is bilateral glenohumeral osteoarthritis. Sternal wires are present. Atherosclerotic calcifications are seen within the aorta Impression: Mild pulmonary vascular congestion, less severe than before Electronically signed by Adolfo Hartman 05-28-2024 4:20 PM Pending Results Patient Have Any Pending Studies at Discharge: No Discharge Instructions Given to Patient (Per Discharging Provider) Ms. Ty, You were hospitalized after being weak, this was found to be from a UTI. You completed your antibiotics while you were here. You will be going to rehab to get stronger. There were also concerns for a GI bleed, we had to reverse your coumadin with Vitamin K and you were on a heparin drip while we restarted the coumadin. You will be on lovenox shots twice a day until your INR is therapeutic. Will need to closely follow with [facility] for monitoring of your INR. Please STOP using aspercreme at home - this can be contributing to your continued GI bleed. Also do NOT use voltaren gel. Med changes: - stop voltaren, aspercream - increased metoprolol to 25mg daily Follow ups: - PCP after discharge from [facility] - cardiology for INR monitoring - GI for video endoscopy For [facility]: * INR 1.6 day of discharge, coumadin restarted 06/04 * switched to lovenox 80mg BID 3/ AM - recommend recheck INR in 2-3 days. Monitor BMP with lovenox * Recommend holding lasix as edema allows while on lovenox Total Time Total Time Spent Total Time Spent (In Minutes): Time spent day of discharge 36 minutes including direct patient care, medication reconciliation, documentation, review of labs and images, and coordination of care. Discussed with CM Coding Level of Care Code 31629 INP/OBS DISCH >30 MIN Diagnoses Pneumonia J18.9 Upper GI bleed K92.2 Anemia D64.9 UTI (urinary tract infection) N39.0"
[2024-06-07 09:34] VITALS: PULSE 57
[2024-06-07] MEDS: ENOXAPARIN 80 MG/0.8 ML SYR SQ SCH (10:46)
== END 2024-06-07 11:04 | DRG 194 ==
LOC: ED 10:51 → SUATTDRO 16:21 → 2N 16:21

== ENCOUNTER 2024-08-25 15:54 | Inpatient (IN) ==
[2024-08-25] MEDS: LABETALOL HCL IV 5 MG/ML 20ML IV STA ×2 (17:11→19:34)
[2024-08-25] MEDS: ONDANSETRON INJ 2 MG/ML 2 ML VIAL IV STA (17:12)
[2024-08-25] MEDS: fentaNYL citrate PF 100 MCG/2 ML VIAL IV STA ×2 (17:12→18:32)
--- NOTE | 2024-08-25 17:12 | Emergency Department Note ---
Impression & Plan Hypertensive urgency, Weakness, Carotid artery stenosis ED Provider Note NAME: CASTILLO CHAMORRO AGE: 84 SEX: F : 1940 ARRIVES VIA: Ambulance INFORMANT: Patient, ED PROVIDER(S): Aaron Meeks DO CHIEF COMPLAINT: Headache HPI: The patient is an 84-year-old female who presented to the emergency department for evaluation of headache. The patient has had multiple issues going on recently. Unfortunately she has been noncompliant with her medications especially over the last weekend. The patient states that recently she has been having problems with headache as well as neck pain. She is also been having weakness and difficulty ambulating. She is unsure exactly who called 911 but the patient arrived via ambulance. She reports elevated blood pressure. She has not been seen by her family doctor recently. The patient also takes Coumadin. She states she has been noncompliant with this as well. ROS: See above HPI for pertinent positives & negatives. A total of 10 systems reviewed and were otherwise negative. PAST MEDICAL HISTORY: See Below PAST SURGICAL HISTORY: See Below FAMILY HISTORY: See Below SOCIAL HISTORY: See Below HOME MEDICATIONS: See Below ALLERGIES: See Below VITALS: See Below PHYSICAL EXAMINATION: GENERAL: The patient is awake and alert. The patient is somewhat anxious appearing. EYES: The conjunctivae are clear. The left pupil is cloudy and not as reactive. The right pupil is midsized and reactive. EARS, NOSE, MOUTH AND THROAT: The nose is without any evidence of any deformity. NECK: The neck is nontender and supple. RESPIRATORY: Normal respiratory effort is noted there is no evidence of wheezing rhonchi or rales CARDIOVASCULAR: Regular rate and rhythm noted there no murmurs rubs or gallops normal S1 normal S2. GASTROINTESTINAL: The abdomen is soft. Abdomen is nontender. MUSCULOSKELETAL/EXTREMITIES: There is no evidence of gross deformity full range of motion is noted in the hips and shoulders. SKIN: There is no obvious evidence of any rash. There are no petechiae, pallor or cyanosis noted. NEUROLOGIC: The patient is awake and alert. The patient is anxious and appears uncomfortable. Strength is symmetric but diminished. There was no facial droop. Speech was clear. MEDICAL DECISION MAKING: The patient is an 84-year-old female who presented to the emergency department for an evaluation of elevated blood pressure and weakness. The patient's been having problems over the last few days. She has been not eating and not drinking. She has been intermittently compliant with her outpatient medication regimen. The patient was treated with antihypertensive medication in the emergency department. She was also treated for pain medication for her headache. I discussed the patient's laboratory and radiographic studies with her. [facility] Given the patient's symptoms as well as her other findings on imaging I do feel that she would be a better candidate for inpatient management. Triage Nursing notes reviewed. Prior medical records reviewed Vital Signs: reviewed and remarkable for elevated blood pressure. Differential diagnosis: Infection, dehydration, metabolic abnormality, hypo/hyperglycemia, electrolyte disturbance, anemia, hypoxia, cardiac sources, intracerebral event, toxicologic, neurologic, as well as other pathologies. ER treatment provided: See below Diagnostics interpreted by me: ECG: EKG was obtained in the emergency department. My interpretation is sinus rhythm at 71 bpm. There were no PVCs noted. Right bundle-branch block pattern was noted. Nonspecific ST abnormalities are noted. This was compared to a tracing from May 27, 2024. Sinus rhythm has replaced rapid atrial fibrillation compared to the previous tracing. Cardiac Monitoring: An order was placed for continuous cardiac monitoring. The monitor shows a rate of 75 bpm with sinus rhythm. Laboratory studies: As stated above and show below. Imaging studies: See below. Radiographic imaging was reviewed by myself Consultation(s): I discussed this case with Dr. Daniel who is on-call for the [facility]. ED COURSE: Procedures: none Critical Care: I have personally spent greater than 40 minutes of critical care time in the direct management of this patient. This includes bedside care, interpretation of diagnostic studies, and testing, discussion with consultants, patient, and family members, and other required patient management activities. This 40 minutes is in excess of all separately billable procedures. Past Med/Surg History Problem List (Updated 08/25/24 @ 22:31 by Aaron Meeks DO) Carotid artery stenosis (Acute) Weakness (Acute) Hypertensive urgency (Acute) Gait disturbance Pressure ulcer Cerebral microvascular disease (Acute) Acute confusion (Acute) Acute hyperkalemia (Acute) GERSON (acute kidney injury) (Acute) Encephalopathy acute (Acute) Diverticulitis (Acute) Chronic back pain Glaucoma Medical History Pneumonia CKD (chronic kidney disease) stage 3, GFR 30-59 ml/min HTN (hypertension) with goal to be determined On warfarin therapy Mitral stenosis Atrial fibrillation with RVR Upper GI bleed Acute blood loss anemia Aortic stenosis Chest tightness Hydronephrosis of right kidney Macrocytic anemia Current every day smoker On warfarin therapy Surgical History Status post hip replacement Status post knee replacement H/O mechanical aortic valve replacement Family History Brother Hypertension Heart disease Sister Hypertension Heart disease Mother Hypertension Heart disease Myocardial infarction Father Hypertension Heart disease Denies family history of Ovarian cancer Prostate cancer Breast cancer Lung cancer Colorectal cancer Stroke Social History Smoking Status: Current every day smoker Tobacco Type: Cigarettes Age Started Using Tobacco: 38; packs per day: 0.50; Cigarettes Per Day: 10; Second Hand Exposure: No; Do You Dip or Chew Tobacco: No; Hx Alcohol Use: No Hx Substance Use: No Preferred Language: Omani Communication Ability: Effective Visual Impairment: Limited Hearing Ability: Normal Stone Cutter Required: No Beliefs That Will Affect Care: None marital status: / Current Living Situation: Alone Current Living Situation Comment: [employer] current occupational status: retired How many Children do You have: 4 Other Information That Helps Us Care for You: No Feels Safe at Home: Yes Safety Concerns: Feels Safe At This Time Childhood Exposure to Second-Hand Smoke: Yes Diet: low salt caffeine: Yes Dental Care, Regularly: No Physical Activity Frequency: Does not Exercise Seatbelt Use: always Sunscreen Use: No Assistive Devices: Cane and Walker Allergies Allergies Allergy/AdvReac Type Severity Reaction Status Date / Time No Known Allergies Allergy Verified 08/25/24 18:52 Home Meds Home Medications Medication Instructions Recorded Confirmed latanoprost 0.005 % eye drops 1 drp OPB PM 07/31/23 08/25/24 brimonidine 0.2 % eye drops 1 drp OPB UD 03/18/24 08/25/24 dorzolamide 2 % eye drops 1 drp OPB UD 03/18/24 08/25/24 amlodipine 2.5 mg tablet 5 mg PO QAM 04/04/24 08/25/24 gabapentin 100 mg capsule 100 mg PO DAILY@0700,1300 05/21/24 08/25/24 gabapentin 100 mg capsule 200 mg PO HS 05/21/24 08/25/24 famotidine 20 mg tablet 20 mg PO DAILY 08/25/24 08/25/24 warfarin 5 mg tablet 5 mg PO DAILY@1600 08/25/24 08/25/24 Previous Rx's Medication Instructions Recorded furosemide 20 mg tablet 20 mg PO DAILY #90 tabs 08/20/23 lisinopril 10 mg tablet 10 mg PO DAILY #90 tabs 10/30/23 Shower Chair #1 ea 11/20/23 tramadol 50 mg tablet 50 mg PO TID PRN pain #0 tabs 03/30/24 pantoprazole 40 mg tablet,delayed 40 mg PO BID #30 tabs 04/30/24 release metoprolol succinate 25 mg 25 mg PO QAM #30 tabs 06/07/24 tablet,extended release 24 hr Results & Data (ED) Vital Signs Vital Signs - 24 hr 08/25/24 16:07 08/25/24 16:42 08/25/24 16:59 Temperature 37 C Temperature Source Oral Pulse Rate 78 76 Pulse Rate [Apical] 73 Pulse Rhythm [Apical] Pulse Strength [Apical] Respiratory Rate 16 16 Respiratory Effort / Characteristics Non-Labored Spontaneous Non-Labored Spontaneous Respiratory Depth Normal Normal Respiratory Pattern Regular Blood Pressure 176/126 H Blood Pressure [Right Arm] 266/154 H Blood Pressure Mean 142 Blood Pressure Mean [Right Arm] 191 Blood Pressure Position [Right Arm] Pulse Oximetry 98 100 Oxygen Delivery Method Room Air Sepsis New/Unexplained Change in Mental Status No Sepsis Action Taken by Nursing No Action Required 08/25/24 18:00 08/25/24 18:04 08/25/24 19:34 Temperature Temperature Source Pulse Rate 85 71 Pulse Rate [Apical] 85 Pulse Rhythm [Apical] Pulse Strength [Apical] Respiratory Rate 16 Respiratory Effort / Characteristics Non-Labored Spontaneous Respiratory Depth Normal Respiratory Pattern Blood Pressure 180/91 H 191/94 H Blood Pressure [Right Arm] 180/91 H Blood Pressure Mean Blood Pressure Mean [Right Arm] 120 Blood Pressure Position [Right Arm] Pulse Oximetry 97 Oxygen Delivery Method Room Air Sepsis New/Unexplained Change in Mental Status Sepsis Action Taken by Nursing 08/25/24 20:00 Temperature Temperature Source Pulse Rate Pulse Rate [Apical] 74 Pulse Rhythm [Apical] Regular Pulse Strength [Apical] Normal Respiratory Rate 20 Respiratory Effort / Characteristics Non-Labored Spontaneous Respiratory Depth Normal Respiratory Pattern Regular Blood Pressure Blood Pressure [Right Arm] 167/105 H Blood Pressure Mean Blood Pressure Mean [Right Arm] 125 Blood Pressure Position [Right Arm] Lying Pulse Oximetry 98 Oxygen Delivery Method Room Air Sepsis New/Unexplained Change in Mental Status Sepsis Action Taken by [facility] Medications Current Medication List: was personally reviewed by me Laboratory Data Attestation: I reviewed the patient's lab results. 08/25/24 17:14 08/25/24 17:14 Lab Results 08/25/24 08/25/24 08/25/24 Range/Units 16:05 17:14 17:22 WBC 6.34 (4.8-10.8) K/ul RBC 4.02 L (4.20-5.40) M/uL Hgb 13.1 (12.0-16.0) g/dl POC Hgb 14.6 (12.0-16.0) g/dl Hct 41.8 (37.0-47.0) % POC Hct 43 (37-47) % MCV 104.0 H (80.0-100.0) fL MCH 32.6 (25.0-34.0) pg MCHC 31.3 L (32.0-36.0) g/dL RDW Std Deviation 56.4 H (36.4-46.3) fL RDW Coeff of Xavier 14.6 H (11.5-14.5) % Plt Count 268 (130-400) K/uL MPV 9.4 (9.4-12.4) fL Immature Gran % (Auto) 0.3 % Neut % (Auto) 66.4 % Lymph % (Auto) 23.0 % [place] % (Auto) 6.3 % Eos % (Auto) 3.2 % Baso % (Auto) 0.8 % Neut # (Auto) 4.21 (1.40-6.50) K/uL Lymph # (Auto) 1.46 (1.20-3.40) K/uL [place] # (Auto) 0.40 (0.11-0.59) K/uL Eos # (Auto) 0.20 (0.00-0.50) K/uL Baso # (Auto) 0.05 (0.00-0.20) K/uL Immature Gran # (Auto) 0.02 (0.01-0.20) K/uL ESR 110 H (0-30) mm/hr PT 28.2 H (9.0-12.0) Seconds INR 2.9 H (0.9-1.1) APTT 51 H (21-31) Seconds PTT Ratio 1.9 POC Sodium 142 (135-144) mmol/L Sodium 141 (136-145) mmol/L POC Potassium 4.1 (3.3-5.0) mmol/L Potassium 4.0 (3.5-5.1) mmol/L POC Chloride 113 H (101-112) mmol/L Chloride 111 H (98-107) mmol/L Carbon Dioxide 20 L (21-32) mmol/L POC Total CO2 17 L (24-31) mmol/L Anion Gap 10 (3-11) POC Anion Gap 17.0 (16-25) mmol/L POC BUN 25 H (7-18) mg/dl BUN 26 H (6-23) mg/dl Creatinine 1.29 H (0.6-1.2) mg/dl POC Creatinine 1.4 H (0.6-1.3) mg/dl Est Cr Clr Drug Dosing 30.0 ml/min eGFR 40.42 BUN/Creatinine Ratio 20.2 H (10-20) Glucose 77 (70-99(Fasting)) mg/dl POC Glucose 75 (70-99) mg/dl POC Glucose (other) 79 (70-99) mg/dl Calcium 10.1 (8.6-10.3) mg/dl POC Ioniz Calcium Nikos 1.20 (1.12-1.32) mmol/l Magnesium 2.3 (1.7-2.4) mg/dl Total Bilirubin 0.6 (0.2-1.0) mg/dl AST 17 (13-39) U/L ALT 8 (7-52) U/L Alkaline Phosphatase 116 H (34-104) U/L Troponin I High Sens 12.9 (0-14) pg/ml C-Reactive Protein 1.26 H (0-0.5) mg/dl Total Protein 8.3 (6.0-8.3) gm/dl Albumin 4.7 (3.4-5.0) gm/dl Globulin 3.6 (2.5-4.0) gm/dl Albumin/Globulin Ratio 1.3 (0.9-2) TSH 1.147 (0.300-4.500) uIu/ml Urine Color Urine Appearance (Clear) Urine pH (4.5-7.5) Ur Specific [place] (1.000-1.030) Urine Protein (Negative) Urine Glucose (UA) (Negative) Urine Ketones (Negative) Urine Blood (Negative) Urine Nitrite (Negative) Urine Bilirubin (Negative) Urine Urobilinogen (Negative) Ur Leukocyte Esterase (Negative) Urine WBC (Auto) (0-5) /hpf Urine RBC (Auto) (0-2) /hpf U Hyaline Cast (Auto) (0-2) /lpf U Epithel Cells (Auto) (0-2) /hpf Urine Bacteria (Auto) (None Seen) Urine Comment 08/25/24 Range/Units 18:00 WBC (4.8-10.8) K/ul RBC (4.20-5.40) M/uL Hgb (12.0-16.0) g/dl POC Hgb (12.0-16.0) g/dl Hct (37.0-47.0) % POC Hct (37-47) % MCV (80.0-100.0) fL MCH (25.0-34.0) pg MCHC (32.0-36.0) g/dL RDW Std Deviation (36.4-46.3) fL RDW Coeff of Xavier (11.5-14.5) % Plt Count (130-400) K/uL MPV (9.4-12.4) fL Immature Gran % (Auto) % Neut % (Auto) % Lymph % (Auto) % [place] % (Auto) % Eos % (Auto) % Baso % (Auto) % Neut # (Auto) (1.40-6.50) K/uL Lymph # (Auto) (1.20-3.40) K/uL [place] # (Auto) (0.11-0.59) K/uL Eos # (Auto) (0.00-0.50) K/uL Baso # (Auto) (0.00-0.20) K/uL Immature Gran # (Auto) (0.01-0.20) K/uL ESR (0-30) mm/hr PT (9.0-12.0) Seconds INR (0.9-1.1) APTT (21-31) Seconds PTT Ratio POC Sodium (135-144) mmol/L Sodium (136-145) mmol/L POC Potassium (3.3-5.0) mmol/L Potassium (3.5-5.1) mmol/L POC Chloride (101-112) mmol/L Chloride (98-107) mmol/L Carbon Dioxide (21-32) mmol/L POC Total CO2 (24-31) mmol/L Anion Gap (3-11) POC Anion Gap (16-25) mmol/L POC BUN (7-18) mg/dl BUN (6-23) mg/dl Creatinine (0.6-1.2) mg/dl POC Creatinine (0.6-1.3) mg/dl Est Cr Clr Drug Dosing ml/min eGFR BUN/Creatinine Ratio (10-20) Glucose (70-99(Fasting)) mg/dl POC Glucose (70-99) mg/dl POC Glucose (other) (70-99) mg/dl Calcium (8.6-10.3) mg/dl POC Ioniz Calcium Nikos (1.12-1.32) mmol/l Magnesium (1.7-2.4) mg/dl Total Bilirubin (0.2-1.0) mg/dl AST (13-39) U/L ALT (7-52) U/L Alkaline Phosphatase (34-104) U/L Troponin I High Sens (0-14) pg/ml C-Reactive Protein (0-0.5) mg/dl Total Protein (6.0-8.3) gm/dl Albumin (3.4-5.0) gm/dl Globulin (2.5-4.0) gm/dl Albumin/Globulin Ratio (0.9-2) TSH (0.300-4.500) uIu/ml Urine Color Yellow Urine Appearance Clear (Clear) Urine pH 7.0 (4.5-7.5) Ur Specific [place] 1.012 (1.000-1.030) Urine Protein 2+ H (Negative) Urine Glucose (UA) Negative (Negative) Urine Ketones Trace H (Negative) Urine Blood Trace H (Negative) Urine Nitrite Negative (Negative) Urine Bilirubin Negative (Negative) Urine Urobilinogen Negative (Negative) Ur Leukocyte Esterase Negative (Negative) Urine WBC (Auto) 0-5 (0-5) /hpf Urine RBC (Auto) 0-2 (0-2) /hpf U Hyaline Cast (Auto) 0-2 (0-2) /lpf U Epithel Cells (Auto) 0-2 (0-2) /hpf Urine Bacteria (Auto) None Seen (None Seen) Urine Comment Administered Medications Discontinued Medications Fentanyl Citrate (Fentanyl Citrate Pf 100 Mcg/2 Ml Vial) 50 mcg IV NOW STA Stop: 08/25/24 17:03 Last Admin: 08/25/24 17:12 Dose: 50 mcg Documented By: BERNICE Fentanyl Citrate (Fentanyl Citrate Pf 100 Mcg/2 Ml Vial) 50 mcg IV NOW STA Stop: 08/25/24 18:09 Last Admin: 08/25/24 18:32 Dose: 50 mcg Documented By: BERNICE Ioversol (Optiray 320 125ml) 115 ml IV ONCE ONE Stop: 08/25/24 18:17 Last Admin: 08/25/24 18:17 Dose: 115 ml Documented By: MARLY Labetalol HCl (Labetalol Hcl Iv 5 Mg/Ml 20ml) 10 mg IV NOW STA Stop: 08/25/24 17:00 Last Admin: 08/25/24 17:11 Dose: 10 mg Documented By: BERNICE Labetalol HCl (Labetalol Hcl Iv 5 Mg/Ml 20ml) 10 mg IV NOW STA Stop: 08/25/24 19:08 Last Admin: 08/25/24 19:34 Dose: 10 mg Documented By: WAN Lisinopril (Lisinopril 10 Mg Tab) 10 mg PO NOW STA Stop: 08/25/24 20:08 Last Admin: 08/25/24 20:50 Dose: 10 mg Documented By: WAN Ondansetron HCl (Ondansetron Inj 2 Mg/Ml 2 Ml Vial) 4 mg IV NOW STA Stop: 08/25/24 17:03 Last Admin: 08/25/24 17:12 Dose: 4 mg Documented By: BERNICE Imaging Data Attestation: I personally reviewed and interpreted this imaging study as follows: My Impression: 1 view chest x-ray was obtained in the emergency department. My interpretation is no free air or definite infiltrate, final report below. CT of the brain was obtained in the emergency department. My interpretation is no intracranial hemorrhage or mass effect, final report below. Radiologist's Impression: Chest X-Ray 08/25/24 16:59 INDICATION: Chest pain. TECHNIQUE: Frontal radiograph of the chest. COMPARISON: Radiograph from 05/28/2024. FINDINGS: Cardiomegaly. Mild pulmonary vascular congestion. No infiltrate, pleural effusion or pneumothorax. No acute osseous abnormality evident. IMPRESSION: Mild pulmonary vascular congestion. Electronically signed by Antony Rosales 08-25-2024 6:[address] 08/25/24 16:59 Clinical History: Blurry vision and headache Technique: Axial computed tomography images were obtained of the brain without intravenous contrast. Comparison is made to the prior CT dated 05/27/2024 Findings: There is unchanged cerebral atrophy, within expected limits for the patient's age. Areas of decreased attenuation are seen within the periventricular white matter, likely representing chronic small vessel ischemic disease. There is a small old infarct of the right caudate nucleus. There is no definite sign of acute infarction. No intracranial hemorrhage is evident. No definite mass lesion is seen on this noncontrast examination. There is no midline shift or other form of herniation. No hydrocephalus is seen. No fracture is identified. The orbits and the visualized paranasal sinuses appear unremarkable. The mastoid air cells appear clear. Impression: 1. Cerebral atrophy and chronic small vessel ischemic disease 2. 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 No definite acute pathology Electronically signed by Adolfo Hartman 08-25-2024 6:44 PM Head CTA 08/25/24 16:59 Technique: Axial computed tomography images were obtained of the brain after the administration of intravenous contrast according to the CT angiogram protocol Findings: There is calcified plaque within the cavernous and supraclinoid segments of the internal carotid arteries bilaterally and without significant stenosis No definite stenosis or aneurysm is seen of the anterior, middle, or posterior cerebral artery circulations. The visualized vertebral arteries and the basilar artery appear unremarkable Impression: No definite stenosis or aneurysm of the intracranial arteries Electronically signed by Adolfo Hartman 08-25-2024 6:45 PM Neck CTA 08/25/24 16:59 Technique: Axial computed tomography images were obtained of the neck after the administration of intravenous contrast according to the CT angiogram protocol Findings: There is mild multifocal plaque within the common carotid arteries bilaterally, without significant stenosis. There is a severe stenosis of the right carotid bulb and proximal right internal carotid artery, with 80-90% diameter narrowing. There is atherosclerotic plaque in the left carotid bulb and proximal left internal carotid artery, without significant stenosis. There is a severe stenosis of the origin of the left external carotid artery. There is also a severe stenosis at the origin of the right external carotid artery The vertebral arteries are patent bilaterally with no significant stenosis seen. The visualized thoracic aorta appears unremarkable There is multilevel degenerative disc disease and osteoarthritis of the cervical spine. There is mild emphysema Impression: 1. Severe stenosis of the right carotid bulb and proximal right ICA, with 80-90% diameter narrowing 2. Severe stenoses of the proximal ECA bilaterally ACT 112: Positive. There are findings on this exam that require communication between the performing entity and the patient following Patient Test Result Information Act ([place] ACT 112) guidelines. Electronically signed by Adolfo Hatrman 08-25-2024 6:51 PM Abdomen/Pelvis CT 08/25/24 17:09 Technique: Axial computed tomography images were obtained of the abdomen and pelvis after the administration of intravenous contrast. Comparison is made to the prior CT dated 03/18/2024. Findings: The liver is overall of normal size, attenuation, and contour with no sign of cirrhosis or significant fatty infiltration. There is a suspected 5 mm cyst in the liver dome. No liver mass lesion is seen. The portal vein is patent. There are suspected small gallstones. There is no definite sign of acute cholecystitis. There is mild bile duct dilatation is noted, with the common bile duct measuring up to 8 mm. The spleen is of normal size. No focal splenic lesion is evident. The pancreatic duct is mildly dilated, measuring up to 4 mm. There is a questionable obstructing mass within the pancreatic head, measuring up to 1.5 cm. This is best seen on image 52 of the coronal reconstructions. There is no sign of acute pancreatitis. The adrenal glands appear unremarkable. No definite renal or proximal ureteral calculi are seen on this contrast-enhanced study. There is unchanged right hydronephrosis with prominent dilatation of the right renal pelvis. There is no hydroureter or visible obstructing calculus or mass. There are multiple bilateral renal cysts, measuring up to 4.4 cm. The abdominal aorta is of normal caliber. There is multifocal atherosclerotic plaque. No abdominal adenopathy is seen. The stomach appears normal. There is no sign of small bowel obstruction. There is diverticulosis without evidence of diverticulitis. No free intraperitoneal fluid or air is identified. No distal ureteral or bladder calculi are seen. No bladder mass lesion is evident. 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 No pelvic adenopathy is noted. The lungs bases appear clear. A left hip replacement is again seen, resulting in surrounding artifact. 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 There is lumbar scoliosis and degenerative disc disease. No fracture is identified. No focal osseous lesion is seen Impression: 1. Possible small pancreatic head mass. Pancreatic protocol abdominal MRI with and without contrast could be obtained for further evaluation 2. Mild bile duct dilatation and mild pancreatic ductal dilatation 3. Cholelithiasis without evidence of acute cholecystitis 4. Hepatic and bilateral renal cysts 5. Unchanged right hydronephrosis without visible obstructing lesion. This could be due to chronic intrinsic UPJ obstruction or may be residual from prior obstruction or reflux 6. Diverticulosis without evidence of diverticulitis 7. 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 There are findings on this exam that require communication between the performing entity and the patient following Patient Test Result Information Act ([place] ACT 112) guidelines. Electronically signed by Adolfo Hartman 08-25-2024 7:01 PM Discharge Plan Visit Data Chief Complaint: Headache Stated Complaint: STROKE SX ED Provider: Aaron Meeks Discharge Problem: Hypertensive urgency, Weakness, Carotid artery stenosis Patient Disposition: Admitted As Inpatient Condition: Fair Discharge Instructions Interventions: ED Discharge Assessment Last Done: 08/25/24 21:05
[2024-08-25 17:27] LABS: Basophils # (auto) 0.05 K/uL (0.00-0.20); Basophils % (auto) 0.8 %; Eosinophils % (auto) 3.2 %; Hematocrit (blood only) 41.8 % (37.0-47.0); Hemoglobin 13.1 g/dl (12.0-16.0); Immature Granulocytes # (auto) 0.02 K/uL (0.01-0.20); Immature Granulocytes % (auto) 0.3 %; Lymphocytes # (auto) 1.46 K/uL (1.20-3.40); Mean Corpuscular Hemoglobin 32.6 pg (25.0-34.0); Mean Corpuscular Hgb Conc 31.3 g/dL (32.0-36.0); Mean Platelet Volume 9.4 fL (9.4-12.4); Monocytes % (auto) 6.3 %; Neutrophils # (auto) 4.21 K/uL (1.40-6.50); Neutrophils % (auto) 66.4 %; Platelet Count 268 K/uL (130-400); RDW Coefficient of Variation 14.6 % (11.5-14.5); RDW Standard Deviation 56.4 fL (36.4-46.3); Red Blood Count 4.02 M/uL (4.20-5.40); White Blood Count 6.34 K/ul (4.8-10.8)
[2024-08-25 17:34] LABS: iSTAT Creatinine 1.4 mg/dl (0.6-1.3); iSTAT Hemoglobin 14.6 g/dl (12.0-16.0); iSTAT Ionized Calcium 1.2 mmol/l (1.12-1.32); iSTAT Potassium 4.1 mmol/L (3.3-5.0)
[2024-08-25 17:40] LABS: INR 2.9 (0.9-1.1); Partial Thromboplastin Ratio 1.9; Partial Thromboplastin Time 51 Seconds (21-31); Prothrombin Time 28.2 Seconds (9.0-12.0)
[2024-08-25 17:51] LABS: Albumin Globulin Ratio 1.3 (0.9-2); Albumin Level 4.7 gm/dl (3.4-5.0); BUN Creatinine Ratio 20.2 (10-20); Bilirubin,Total 0.6 mg/dl (0.2-1.0); C Reactive Protein 1.26 mg/dl (0-0.5); Calcium 10.1 mg/dl (8.6-10.3); Globulin 3.6 gm/dl (2.5-4.0); Magnesium 2.3 mg/dl (1.7-2.4); Total Protein 8.3 gm/dl (6.0-8.3)
[2024-08-25 17:57] LABS: Troponin I High Sensitivity 12.9 pg/ml (0-14)
--- NOTE | 2024-08-25 18:01 | XRay Report ---
INDICATION: Chest pain. TECHNIQUE: Frontal radiograph of the chest. COMPARISON: Radiograph from 05/28/2024. FINDINGS: Cardiomegaly. Mild pulmonary vascular congestion. No infiltrate, pleural effusion or pneumothorax. No acute osseous abnormality evident. IMPRESSION: Mild pulmonary vascular congestion. Electronically signed by Antony Rosales 08-25-2024 6:00 PM
[2024-08-25 18:17] LABS: Appearance Urine Clear (Clear); Bacteria Urine Automated None Seen (None Seen); Bilirubin Urine Negative (Negative); Blood Urine Trace (Negative); Cast Urine Automated 0-2 /lpf (0-2); Color Urine Yellow; Epithelial Cell Urine Auto 0-2 /hpf (0-2); Glucose Urine UA Negative (Negative); Ketones Urine Trace (Negative); Leukocyte Esterase Urine Negative (Negative); Nitrite Urine Negative (Negative); Protein Urine 2+ (Negative); RBC Urine Automated 0-2 /hpf (0-2); Specific Gravity Urine 1.012 (1.000-1.030); Urobilinogen Urine Negative (Negative); WBC Urine Automated 0-5 /hpf (0-5)
[2024-08-25] MEDS: OPTIRAY 320 125ml IV ONE (18:17)
--- NOTE | 2024-08-25 18:44 | CT Scan Report ---
Clinical History: Blurry vision and headache Technique: Axial computed tomography images were obtained of the brain without intravenous contrast. Comparison is made to the prior CT dated 05/27/2024 Findings: There is unchanged cerebral atrophy, within expected limits for the patient's age. Areas of decreased attenuation are seen within the periventricular white matter, likely representing chronic small vessel ischemic disease. There is a small old infarct of the right caudate nucleus. There is no definite sign of acute infarction. No intracranial hemorrhage is evident. No definite mass lesion is seen on this noncontrast examination. There is no midline shift or other form of herniation. No hydrocephalus is seen. No fracture is identified. The orbits and the visualized paranasal sinuses appear unremarkable. The mastoid air cells appear clear. Impression: 1. Cerebral atrophy and chronic small vessel ischemic disease 2. 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 No definite acute pathology Electronically signed by Adolfo Hartman 08-25-2024 6:44 PM
--- NOTE | 2024-08-25 18:46 | CT Scan Report ---
Technique: Axial computed tomography images were obtained of the brain after the administration of intravenous contrast according to the CT angiogram protocol Findings: There is calcified plaque within the cavernous and supraclinoid segments of the internal carotid arteries bilaterally and without significant stenosis No definite stenosis or aneurysm is seen of the anterior, middle, or posterior cerebral artery circulations. The visualized vertebral arteries and the basilar artery appear unremarkable Impression: No definite stenosis or aneurysm of the intracranial arteries Electronically signed by Adolfo Hartman 08-25-2024 6:45 PM
--- NOTE | 2024-08-25 18:51 | CT Scan Report ---
Technique: Axial computed tomography images were obtained of the neck after the administration of intravenous contrast according to the CT angiogram protocol Findings: There is mild multifocal plaque within the common carotid arteries bilaterally, without significant stenosis. There is a severe stenosis of the right carotid bulb and proximal right internal carotid artery, with 80-90% diameter narrowing. There is atherosclerotic plaque in the left carotid bulb and proximal left internal carotid artery, without significant stenosis. There is a severe stenosis of the origin of the left external carotid artery. There is also a severe stenosis at the origin of the right external carotid artery The vertebral arteries are patent bilaterally with no significant stenosis seen. The visualized thoracic aorta appears unremarkable There is multilevel degenerative disc disease and osteoarthritis of the cervical spine. There is mild emphysema Impression: 1. Severe stenosis of the right carotid bulb and proximal right ICA, with 80-90% diameter narrowing 2. Severe stenoses of the proximal ECA bilaterally ACT 112: Positive. There are findings on this exam that require communication between the performing entity and the patient following Patient Test Result Information Act ([place] ACT 112) guidelines. Electronically signed by Adolfo Hartman 08-25-2024 6:51 PM
--- NOTE | 2024-08-25 19:02 | CT Scan Report ---
Technique: Axial computed tomography images were obtained of the abdomen and pelvis after the administration of intravenous contrast. Comparison is made to the prior CT dated 03/18/2024. Findings: The liver is overall of normal size, attenuation, and contour with no sign of cirrhosis or significant fatty infiltration. There is a suspected 5 mm cyst in the liver dome. No liver mass lesion is seen. The portal vein is patent. There are suspected small gallstones. There is no definite sign of acute cholecystitis. There is mild bile duct dilatation is noted, with the common bile duct measuring up to 8 mm. The spleen is of normal size. No focal splenic lesion is evident. The pancreatic duct is mildly dilated, measuring up to 4 mm. There is a questionable obstructing mass within the pancreatic head, measuring up to 1.5 cm. This is best seen on image 52 of the coronal reconstructions. There is no sign of acute pancreatitis. The adrenal glands appear unremarkable. No definite renal or proximal ureteral calculi are seen on this contrast-enhanced study. There is unchanged right hydronephrosis with prominent dilatation of the right renal pelvis. There is no hydroureter or visible obstructing calculus or mass. There are multiple bilateral renal cysts, measuring up to 4.4 cm. The abdominal aorta is of normal caliber. There is multifocal atherosclerotic plaque. No abdominal adenopathy is seen. The stomach appears normal. There is no sign of small bowel obstruction. There is diverticulosis without evidence of diverticulitis. No free intraperitoneal fluid or air is identified. No distal ureteral or bladder calculi are seen. No bladder mass lesion is evident. 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 No pelvic adenopathy is noted. The lungs bases appear clear. A left hip replacement is again seen, resulting in surrounding artifact. 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 There is lumbar scoliosis and degenerative disc disease. No fracture is identified. No focal osseous lesion is seen Impression: 1. Possible small pancreatic head mass. Pancreatic protocol abdominal MRI with and without contrast could be obtained for further evaluation 2. Mild bile duct dilatation and mild pancreatic ductal dilatation 3. Cholelithiasis without evidence of acute cholecystitis 4. Hepatic and bilateral renal cysts 5. Unchanged right hydronephrosis without visible obstructing lesion. This could be due to chronic intrinsic UPJ obstruction or may be residual from prior obstruction or reflux 6. Diverticulosis without evidence of diverticulitis 7. 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 There are findings on this exam that require communication between the performing entity and the patient following Patient Test Result Information Act ([place] ACT 112) guidelines. Electronically signed by Adolfo Hartman 08-25-2024 7:01 PM
--- NOTE | 2024-08-25 19:32 | History & Physical Report ---
Date of Service August 25, 2024 Assessment & Plan (1) Hypertensive urgency: (2) Headache: (3) Carotid artery stenosis: (4) Mass of head of pancreas: Plan Patient is an 84-year-old female with past medical history of hypertension, CKD, aortic valve replacement on Coumadin, history of GI bleed. Patient presented via EMS after referral from her PCP due to hypertension. Patient has missed lisinopril and metoprolol for several days due to being out of her prescription. She stated she has had headache, tinnitus, blurry vision, dizziness, and unsteadiness for several days. #HTN urgency/headache - suspect symptoms contributory to HTN, 2/2 missing several days of home medications. Electrolytes stable, troponin negative. CRP 1.26 and ESR 110 however symptoms and exam not consistent with GCA. Head CT and CTAs essentially negative other than stenosis noted below. - primary goal is adequate BP control - received total of 20mg IV labetalol in ED; continue with 5mg IV labetalol prn for SBP > 220 or DBP > 110 - restart home medications - lisinopril and metoprolol ordered on admission - continue amlodipine and lasix - Tylenol prn for headache - TSH ordered #Right ICA stenosis - neck cta Showed severe stenosis of right carotid bulb and proximal right ICA with 80 to 90% diameter narrowing (increased from 75% with recent imaging). - lipid panel with AM labs - consider out pt vascular referral #possible pancreatic head mass - incidental finding on AP CT. LFTs WNL. Follow with PCP #Nicotine use - 1/2 ppd - declines nicotine patch on admission - encourage smoking cessation #Aortic valve replacementstable. - Continue warfarin INR 2.9 on admission, goal 2.5-3.5. #CKDrenal function at baseline. #GERD - stable - continue home PPI and famotidine #Anemiaresolved, was previously 2/2 GI bleeds. Hgb 13.1. Patient denies any recent signs/symptoms of bleeding. VTE ppx: continue Warfarin Dispo: PCU with IV BP control Admission and Anticipated Discharge Date Admission Date: 08/25/24 History of Present Illness Chief Complaint: headache Primary Care Provider: DARNELL Lemus Patient is an 84-year-old female with past medical history of hypertension, CKD, aortic valve replacement on Coumadin, history of GI bleed. Patient presented via EMS after referral from her PCP due to hypertension. Patient has missed lisinopril and metoprolol for several days due to being out of her prescription. She stated she has had headache, tinnitus, blurry vision, dizziness, and unsteadiness for several days. Patient seen at bedside with her niece present. She stated that she has missed lisinopril metoprolol for several days due to her prescription not being filled. She is still been taking amlodipine and her Coumadin. Patient went to her PCP today who referred her in due to an elevated blood pressure and slight fever. Patient stated she has had a headache for several days which started in the middle of her neck and progressed upward through her head and alternates [id number] to bilateral temporal regions and results in tinnitus alternating bilaterally. 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 She stated that symptoms get worse when she stands up and she becomes unsteady on her feet and dizzy. Pain is not reproducible by palpation at bedside. Patient denies any fever, chills, chest pain, shortness of breath, abdominal pain, nausea, vomiting, diarrhea, melena, hematochezia, numbness or tingling. She still smokes approximately half a pack of cigarettes per day, declines need for nicotine patch at this time. She lives at home alone. She wishes to change her CODE STATUS to full code. Allergies Allergy/AdvReac Type Severity Reaction Status Date / Time No Known Allergies Allergy Verified 08/25/24 18:52 Home Medications Medication Instructions Recorded Confirmed Type latanoprost 0.005 % eye drops 1 drp OPB PM 07/31/23 08/25/24 History furosemide 20 mg tablet 20 mg PO DAILY #90 tabs 08/20/23 08/25/24 Rx lisinopril 10 mg tablet 10 mg PO DAILY #90 tabs 10/30/23 08/25/24 Rx Shower Chair #1 ea 11/20/23 08/25/24 Rx brimonidine 0.2 % eye drops 1 drp OPB UD 03/18/24 08/25/24 History dorzolamide 2 % eye drops 1 drp OPB UD 03/18/24 08/25/24 History tramadol 50 mg tablet 50 mg PO TID PRN pain #0 tabs 03/30/24 08/25/24 Rx amlodipine 2.5 mg tablet 5 mg PO QAM 04/04/24 08/25/24 History pantoprazole 40 mg tablet,delayed 40 mg PO BID #30 tabs 04/30/24 08/25/24 Rx release gabapentin 100 mg capsule 100 mg PO DAILY@0700,1300 05/21/24 08/25/24 History gabapentin 100 mg capsule 200 mg PO HS 05/21/24 08/25/24 History metoprolol succinate 25 mg 25 mg PO QAM #30 tabs 06/07/24 08/25/24 Rx tablet,extended release 24 hr famotidine 20 mg tablet 20 mg PO DAILY 08/25/24 08/25/24 History warfarin 5 mg tablet 5 mg PO DAILY@1600 08/25/24 08/25/24 History Past Med/Surg History Problem List (Updated 08/26/24 @ 01:21 by Julisa Ayala PA-C) Mass of head of pancreas Headache Carotid artery stenosis (Acute) Weakness (Acute) Hypertensive urgency (Acute) Gait disturbance Pressure ulcer Cerebral microvascular disease (Acute) Acute confusion (Acute) Acute hyperkalemia (Acute) GERSON (acute kidney injury) (Acute) Encephalopathy acute (Acute) Diverticulitis (Acute) Chronic back pain Glaucoma Medical History Pneumonia CKD (chronic kidney disease) stage 3, GFR 30-59 ml/min HTN (hypertension) with goal to be determined On warfarin therapy Mitral stenosis Atrial fibrillation with RVR Upper GI bleed Acute blood loss anemia Aortic stenosis Chest tightness Hydronephrosis of right kidney Macrocytic anemia Current every day smoker On warfarin therapy Surgical History Status post hip replacement Status post knee replacement H/O mechanical aortic valve replacement Family History Brother Hypertension Heart disease Sister Hypertension Heart disease Mother Hypertension Heart disease Myocardial infarction Father Hypertension Heart disease Denies family history of Ovarian cancer Prostate cancer Breast cancer Lung cancer Colorectal cancer Stroke Social History Smoking Status: Current every day smoker Tobacco Type: Cigarettes Age Started Using Tobacco: 38; packs per day: 0.50; Cigarettes Per Day: 10; Second Hand Exposure: No; Do You Dip or Chew Tobacco: No; Hx Alcohol Use: No Hx Substance Use: No Preferred Language: Peruvian Communication Ability: Effective Visual Impairment: Limited Hearing Ability: Normal Clearance Diver Required: No Beliefs That Will Affect Care: None marital status: / Current Living Situation: Alone Current Living Situation Comment: [employer] current occupational status: retired How many Children do You have: 4 Other Information That Helps Us Care for You: No Feels Safe at Home: Yes Safety Concerns: Feels Safe At This Time Childhood Exposure to Second-Hand Smoke: Yes Diet: low salt caffeine: Yes Dental Care, Regularly: No Physical Activity Frequency: Does not Exercise Seatbelt Use: always Sunscreen Use: No Assistive Devices: Cane and Walker Review of Systems Review of Systems: see HPI Physical Exam Physical Exam: The patient is awake, alert and oriented 3, well developed and well nourished, normocephalic and atraumatic, in no acute distress. Non-toxic appearing. HEENT- EOMI, mucous membranes dry. Hearing grossly intact. Pain not reproducible by palpation of neck or head. Heart-normal S1 and S2. No murmurs, rubs or gallops. Lungs-clear bilaterally, no respiratory distress, no accessory muscle use. Abdomen-normal bowel sounds and soft. No ascites noted. Non-tender. Extremities- no clubbing, cyanosis, or edema. Rheumatologic-normal range of motion. Psychiatric-normal affect. Eyes: PERRL, conjunctivae normal, anicteric sclerae Results & Data Results & Data Vital Signs (Past 12 Hours) Vital Signs Temp Pulse Pulse Resp BP BP Pulse Ox 08/25/24 18:04 85 180/91 H 08/25/24 18:00 85 16 180/91 H 97 08/25/24 16:59 73 16 266/154 H 100 08/25/24 16:42 76 08/25/24 16:07 37 C 78 16 176/126 H 98 O2 Del Method 08/25/24 18:04 08/25/24 18:00 Room Air 08/25/24 16:59 08/25/24 16:42 08/25/24 16:07 Room Air Laboratory Results Reviewed CBC, CMP, PT/INR, magnesium, CRP, troponin, ESR, UA Diagnostic Findings reviewed AP CT, neck CTA, head CTA, head CT, CXR Medications Administered EDlabetalol 20 Mg IV, fentanyl 100 M CG IV, Zofran 4 Mg IV ECG Additional Comments: sinus rhythm first-degree AV block, RBBB similar to previous Rate 71 QTc 491 Code Status & VTE Plan Code Status full code patient previously DNR/DNI, however after discussion with patient and niece at bedside she wishes to now be full code. VTE Prophylaxis Plan VTE Prophylaxis will be ordered: Yes Supervising Physician Co-Signing Physician Notes I personally saw and examined the patient. I independently reviewed the labs, EKG, imaging, problem list, medication list, past medical history and family history. I verified all regalado points and agree with Julisa Ayala PA-C with the following exceptions and/or additions: 84 year old female presents to the ER with severe headache after recently not taking her routine medications as she ran out. Headache pain bilateral radiating from back of head. 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 K Pad, continue acetaminophen +/- tramadol PRN Hypertensive urgency - restart her usual medications PG Care Time/CCT Total # of Minutes Spent Total Time Spent with Patient: Total time spent is greater than 50% in coordination of care (as documented) at patient's floor/unit and/or counseling patient: Coding Level of Care Code 45726 INT INP/OBS CARE 3/75MIN Diagnoses Hypertensive urgency I16.0 Headache R51.9 Carotid artery stenosis I65.29 Mass of head of pancreas K86.89
[2024-08-25 20:35] LABS: Thyroid Stimulating Hormone 1.147 uIu/ml (0.300-4.500)
[2024-08-25] MEDS: lisinopril 10 MG TAB PO STA (20:50)
[2024-08-25] MEDS ORDERED: DOCUSATE SODIUM 100 MG CAP PO PRN (21:34)
[2024-08-25] MEDS ORDERED: LABETALOL HCL IV 5 MG/ML 20ML IV PRN (21:34)
[2024-08-25] MEDS ORDERED: ONDANSETRON INJ 2 MG/ML 2 ML VIAL IV PRN (21:34)
[2024-08-25] MEDS: METOPROLOL SUCC 25MG EXT REL TAB PO STA (22:33)
[2024-08-25] MEDS: BRIMONIDINE TARTRATE 0.2% 5ML OPB SCH (22:33)
[2024-08-25] MEDS: DORZOLAMIDE HCL 2% OPH SOLN 10 ML BTL OPB SCH (22:34)
[2024-08-25] MEDS: GABAPENTIN 100 MG CAP PO SCH (22:34)
[2024-08-25] MEDS: LATANOPROST 0.005% OP SOLN 2.5 ML BTL OPB SCH (22:35)
[2024-08-26] MEDS: traMADol HCL 50 MG TABLET PO PRN (03:45)
[2024-08-26] MEDS: PANTOprazole 40 MG TAB PO SCH (05:13)
[2024-08-26 06:28] LABS: Basophils # (auto) 0.03 K/uL (0.00-0.20); Basophils % (auto) 0.7 %; Eosinophils # (auto) 0.16 K/uL (0.00-0.50); Eosinophils % (auto) 3.6 %; Hematocrit (blood only) 37.2 % (37.0-47.0); Hemoglobin 11.5 g/dl (12.0-16.0); Immature Granulocytes # (auto) 0.01 K/uL (0.01-0.20); Immature Granulocytes % (auto) 0.2 %; Lymphocytes % (auto) 26.9 %; Mean Corpuscular Hemoglobin 32.5 pg (25.0-34.0); Mean Corpuscular Hgb Conc 30.9 g/dL (32.0-36.0); Mean Corpuscular Volume 105.1 fL (80.0-100.0); Mean Platelet Volume 9.6 fL (9.4-12.4); Monocytes # (auto) 0.44 K/uL (0.11-0.59); Monocytes % (auto) 9.9 %; Neutrophils # (auto) 2.62 K/uL (1.40-6.50); Neutrophils % (auto) 58.7 %; Platelet Count 215 K/uL (130-400); RDW Coefficient of Variation 14.6 % (11.5-14.5); RDW Standard Deviation 56.5 fL (36.4-46.3); Red Blood Count 3.54 M/uL (4.20-5.40); White Blood Count 4.46 K/ul (4.8-10.8)
[2024-08-26] MEDS: GABAPENTIN 100 MG CAP PO SCH (06:36)
[2024-08-26 06:55] LABS: BUN Creatinine Ratio 19.5 (10-20); Calcium 9.4 mg/dl (8.6-10.3); Chol HDL Ratio 6.4 (0-5); Creatinine Clr Calc Pharmacy 30.6 ml/min
[2024-08-26] MEDS: lisinopril 10 MG TAB PO SCH (08:48)
[2024-08-26] MEDS: METOPROLOL SUCC 25MG EXT REL TAB PO SCH (08:48)
[2024-08-26] MEDS: FUROSEMIDE 20 MG TAB PO SCH (08:49)
[2024-08-26] MEDS: amLODIPine BESYLATE 5 MG TAB PO SCH (08:49)
[2024-08-26] MEDS: FAMOTIDINE 20 MG TAB PO SCH (08:52)
--- NOTE | 2024-08-26 12:16 | Hospitalist Progress Note ---
Date of Service August 26, 2024 Assessment & Plan (1) Hypertensive urgency: (2) Headache: (3) Carotid artery stenosis: (4) Mass of head of pancreas: Plan Patient is an 84-year-old female with past medical history of hypertension, CKD, aortic valve replacement on Coumadin, history of GI bleed. Patient presented via EMS after referral from her PCP due to hypertension. Patient has missed lisinopril and metoprolol for several days due to being out of her prescription. She stated she has had headache, tinnitus, blurry vision, dizziness, and unsteadiness for several days. #HTN urgency/headache - suspect symptoms contributory to HTN, 2/2 missing several days of home medications. TSH WNL. CRP 1.26 and ESR 110 however symptoms and exam not consistent with GCA. Head CT and CTAs essentially negative other than stenosis noted below. BP much better controlled with home meds - continue lisinopril, metoprolol, amlodipine and Lasix. Will continue prn labetolol for sustained HTN but if not needed by tomorrow, likely can be downgraded Suspect vision changes are relate to chronic glaucoma/poor optometry f/u 2/2 multiple hospitalizations PT/OT #Right ICA stenosis - neck cta Showed severe stenosis of right carotid bulb and proximal right ICA with 80 to 90% diameter narrowing (increased from 75% with recent imaging). Elevated lipids, statin started. Consider out pt vascular referral, discussed with family may be poor surgical candidate #possible pancreatic head mass - incidental finding on AP CT. LFTs WNL. Patient has reported decreased appetite and family concerned for cancer. Will make NPO at midnight and check MRI in AM #Nicotine use - 1/2 ppd declines nicotine patch on admission, encourage smoking cessation #Aortic valve replacement Continue warfarin INR 2.9 on admission, goal 2.5-3.5. Recheck AM #CKDrenal function at baseline. #GERD - continue home PPI and famotidine #Anemiaresolved, was previously 2/2 GI bleeds. Hgb 13.1. Patient denies any recent signs/symptoms of bleeding. VTE ppx: continue Warfarin Dispo: continued inpatient stay monitoring BPs, PT/OT evals, MRI in AM Niece updated extensively at bedside 08/26 Admission and Anticipated Discharge Date Admission Date: August 25, 2024 Subjective Patient seen sitting up at side of the bed, niece present at bedside. Patient is still experincing some blurry vision - states that she lost vision in her left eye about 6-7 years ago. has a hx of glaucoma in the right - has not been to the eye doctor in many months 2/2 frequent hospitalizations and rehab stay. Niece reports that she was supposed to see a specialist for a procedure because her IOP were so high discussing how she ran out of meds - normally they are shipped to her house and that did not happen poor appetite - reports sometimes she can go days without eating does not think she has been on cholesterol medicine possible had a stent in her neck when living in [place] but her and her niece are unsure Tele SR with PVCs and IVCD 50-110s Review of Systems Review of Systems: All systems reviewed & are unremarkable except as noted in Subjective Physical Exam Physical Exam: General: NAD, VS as above, sitting up on the side of the bed HEENT: denies pain with palpation of neck, cervical spine and paraspinous muscles Resp: normal respiratory effort, CV: well perfused Abd: soft, nontender Extremities: Moves all extremities, no edema Neuro: A&O x3, Results & Data Results & Data Vital Signs (Past 12 Hours) Vital Signs Temp Pulse Pulse Resp BP Pulse Ox O2 Del Method 08/26/24 11:06 97.3 F L 50 L 18 129/79 97 Room Air 08/26/24 09:33 Room Air 08/26/24 07:48 97.9 F 68 18 174/95 H 99 Room Air 08/26/24 07:42 55 L 08/26/24 03:59 97.9 F 66 18 157/94 H 98 Room Air 08/26/24 00:26 97.9 F 52 L 18 137/74 96 Room Air 08/26/24 00:23 71 Laboratory Results cbc and chemistry reviwed lipid panel reviewed PG Care Time/CCT Total # of Minutes Spent Total Time Spent with Patient: Total time spent is greater than 50% in coordination of care (as documented) at patient's floor/unit and/or counseling patient: Coding Level of Care Code 38687 SUB INP/OBS CARE 3/50MIN Diagnoses Hypertensive urgency I16.0 Headache R51.9 Carotid artery stenosis I65.29 Mass of head of pancreas K86.89
[2024-08-26] MEDS: ATORVASTATIN 40 MG TAB PO SCH (12:55)
--- NOTE | 2024-08-26 13:08 | Electrocardiogram Report ---
Test Reason : Blood Pressure : */* mmHG Vent. Rate : 71 BPM Atrial Rate : 71 BPM P-R Int : 240 ms QRS Dur : 162 ms QT Int : 452 ms P-R-T Axes : 74 -4 37 degrees QTcB Int : 491 ms Sinus rhythm with sinus arrhythmia with 1st degree A-V block Right bundle branch block Minimal voltage criteria for LVH, may be normal variant ( R in aVL ) Abnormal ECG When compared with ECG of 27-May-2024 20:21, Sinus rhythm has replaced Atrial fibrillation Vent. rate has decreased by 58 bpm QRS duration has increased Confirmed by Aaron Miles ([id number]) on 08/26/2024 1:08:30 PM Referred By: Song Pritchard Confirmed By: Aaron Miles
[2024-08-26] MEDS: LIDOCAINE 5% 1 PATCH TD STA (14:42)
[2024-08-26] MEDS: WARFARIN SOD 5 MG TAB PO SCH (16:47)
[2024-08-26] MEDS: ACETAMINOPHEN 325 MG TAB PO PRN (22:01)
[2024-08-26] MEDS: MELATONIN 3 MG TAB PO PRN (22:01)
[2024-08-27] MEDS: LIDOCAINE 5% 1 PATCH TD SCH (05:51)
[2024-08-27 06:47] LABS: INR 2.8 (0.9-1.1); Prothrombin Time 27.7 Seconds (9.0-12.0)
--- NOTE | 2024-08-27 14:25 | Hospitalist Progress Note ---
"Date of Service August 27, 2024 Assessment & Plan (1) Hypertensive urgency: (2) Headache: (3) Carotid artery stenosis: (4) Mass of head of pancreas: Plan Patient is an 84-year-old female with past medical history of hypertension, severe , CHF, CKD, aortic valve replacement on Coumadin, history of GI bleed. Patient presented via EMS after referral from her PCP due to hypertension. Patient has missed lisinopril and metoprolol for several days due to being out of her prescription. She stated she has had headache, tinnitus, blurry vision, dizziness, and unsteadiness for several days. #HTN urgency/headache | severe | CHF - suspect symptoms contributory to HTN, 2/2 missing several days of home medications. TSH WNL. CRP 1.26 and ESR 110 however symptoms and exam not consistent with GCA. Head CT and CTAs essentially negative other than stenosis noted below. BP much better controlled with home meds, but low HR - continue lisinopril and lasix. switch amlodipine to HS decrease metoprolol to 12.5 for bradycardia - can try to continue to wean in outpatient setting Has not needed prn labetalol IV Suspect vision changes are relate to chronic glaucoma/poor optometry f/u 2/2 multiple hospitalizations PT/OT #Right ICA stenosis - neck cta Showed severe stenosis of right carotid bulb and proximal right ICA with 80 to 90% diameter narrowing (increased from 75% with recent imaging). Elevated lipids, statin started. Consider out pt vascular referral, discussed with family may be poor surgical candidate Does have stent in left side - placed about 7-8 years ago per pt report, at [facility] - attempting to get records #possible pancreatic head mass - incidental finding on AP CT. LFTs WNL. Patient has reported decreased appetite and family concerned for cancer. Unfortunately, MRI unable to be completed as we have not be able to obtain information on her stent to see if it is compatbile with the new MRI jay. She hunt not have to remain inpatient to have this done. #Nicotine use - 1/2 ppd declines nicotine patch on admission, encourage smoking cessation #Aortic valve replacement | hx of afib Continue warfarin INR 2.9 on admission, goal 2.5-3.5. Recheck AM #CKDrenal function at baseline. #GERD - continue home PPI and famotidine #Anemiaresolved, was previously 2/2 GI bleeds. Hgb 13.1. Patient denies any recent signs/symptoms of bleeding. VTE ppx: continue Warfarin Dispo: continued inpatient stay monitoring BPs, PT/OT evfallon Niece updated extensively at bedside 08/26 Granddaughter updated by phone 08/27 Admission and Anticipated Discharge Date Admission Date: August 25, 2024 Subjective patient seen lying in bed reports feeling slow this morning head feels off but she is not really able to describe - denies pain, headache or congestions Tele - SR with 1st degree AV block 40-60s Review of Systems Review of Systems: All systems reviewed & are unremarkable except as noted in Subjective Physical Exam Physical Exam: General: NAD, VS as above, sitting up on the side of the bed Resp: normal respiratory effort, CV: well perfused, bradycardic + murmur Abd: soft, nontender Extremities: Moves all extremities, no edema Neuro: A&O x3, Results & Data Results & Data Vital Signs (Past 12 Hours) Vital Signs Temp Pulse Pulse Resp BP Pulse Ox O2 Del Method 08/27/24 11:19 97.3 F L 54 L 18 133/81 97 Room Air 08/27/24 10:14 Room Air 08/27/24 08:35 67 188/85 H 08/27/24 07:30 97.9 F 55 L 18 99/55 L 94 Room Air 08/27/24 07:25 50 L 08/27/24 03:18 98.1 F 51 L 18 107/61 94 Room Air Laboratory Results INR reviewed, CRP reviewed PG Care Time/CCT Total # of Minutes Spent Total Time Spent with Patient: Total time spent is greater than 50% in coordination of care (as documented) at patient's floor/unit and/or counseling patient: Coding Level of Care Code 18286 SUB INP/OBS CARE 3/50MIN Diagnoses Hypertensive urgency I16.0 Headache R51.9 Carotid artery stenosis I65.29 Mass of head of pancreas K86.89"
[2024-08-28 06:13] LABS: Hematocrit (blood only) 34.7 % (37.0-47.0); Hemoglobin 10.7 g/dl (12.0-16.0); Mean Corpuscular Hgb Conc 30.8 g/dL (32.0-36.0); Mean Corpuscular Volume 107.1 fL (80.0-100.0); Mean Platelet Volume 10.1 fL (9.4-12.4); Platelet Count 203 K/uL (130-400); RDW Coefficient of Variation 14.6 % (11.5-14.5); RDW Standard Deviation 56.7 fL (36.4-46.3); Red Blood Count 3.24 M/uL (4.20-5.40); White Blood Count 4.31 K/ul (4.8-10.8)
[2024-08-28 07:56] LABS: BUN Creatinine Ratio 20.8 (10-20); C Reactive Protein 1.55 mg/dl (0-0.5); Calcium 8.6 mg/dl (8.6-10.3); Creatinine Clr Calc Pharmacy 19.3 ml/min; Potassium 5.3 mmol/L (3.5-5.1)
[2024-08-28] MEDS: D5W AND 1/2NSS 1,000 ML IV SCH (08:39)
[2024-08-28] MEDS: METOPROLOL SUCC 25MG EXT REL TAB PO SCH (08:39)
--- NOTE | 2024-08-28 10:53 | Advance Care Plan Prog Note ---
Advanced Care Planning Note Date of Discussion August 28, 2024 ACP Discussion Diagnoses requiring ACP discussion: severe aortic stenosis, acute on chronic pain, HTN urgency, GERSON A [id number] discussion with the Aleida regarding the patient's advanced care planning took place during this hospitalization on the above date. The discussion included the explanation and discussion of advance directives and associated forms/documents, as well as the patient's current code status. We also discussed at length the patient's medical conditions (both acute and chronic), general prognosis, treatment options, and goals of care. The following summarizes the discussion: Aleida realizes that she has gone through alot at this stage of her life. What is most important to her is being home. However, she is not at a point that she would want to stop treatment and focus on staying at home. We had an extensive discussion regarding code status and what an attempt at resuscitation would like and she verbalized that she would not want that, if it her time to Go with God, she would like to be able to go naturally. We discussed that a DNR does not mean we will stop the current treatment. She was understanding of this. CODE STATUS: DNR/DNI - order placed, RN notified Advance Care Planning/Goals of Care Continue current evaluation & management of any acute/chronic issues, Will continue to support the patient/family and Will continue to discuss both short- and long-term goals of care Status Resuscitation Status DNR/DNI No Resuscitation Total Time I spent a total of 20 minutes was spent on this discussion, including counseling, answering questions, and completing, if any, pertinent advanced care planning forms/documents.
--- NOTE | 2024-08-28 10:53 | Hospitalist Progress Note ---
"Date of Service August 28, 2024 Assessment & Plan (1) Hypertensive urgency: (2) Headache: (3) Carotid artery stenosis: (4) Mass of head of pancreas: Plan Patient is an 84-year-old female with past medical history of hypertension, severe , CHF, CKD, aortic valve replacement on Coumadin, history of GI bleed. Patient presented via EMS after referral from her PCP due to hypertension. Patient has missed lisinopril and metoprolol for several days due to being out of her prescription. She stated she has had headache, tinnitus, blurry vision, dizziness, and unsteadiness for several days. #HTN urgency/headache | severe | CHF - suspect symptoms contributory to HTN, 2/2 missing several days of home medications. Head CT and CTAs essentially negative other than stenosis noted below. BP much better controlled with home meds, but low HR - continue lisinopril and lasix - Now HELD with GERSON switch amlodipine to HS decrease metoprolol to 12.5 for bradycardia - can try to continue to wean in outpatient setting Suspect vision changes are relate to chronic glaucoma/poor optometry f/u 2/2 multiple hospitalizations PT/OT -rec rehab, CM following #Neck Pain Cause unclear. seems to have MSK components. Unable to MRI at this time. Pain options limited - NO NSAIDs, including topicals with hx of GI bleeds and warfarin using tramadol, lidocaine patch with continued pain. Add Prednisone today to see if theres a difference. #GERSON/Hyperkalemia Cr 2.07 and K 5.3 today - will hydrate with D5 1/2NSS, encourage PO fluids hold lisinopril and lasix recheck this afternoon #Right ICA stenosis - neck cta Showed severe stenosis of right carotid bulb and proximal right ICA with 80 to 90% diameter narrowing (increased from 75% with recent imaging). Elevated lipids, statin started. Consider out pt vascular referral, discussed with family may be poor surgical candidate Does have stent in left side - placed about 7-8 years ago per pt report, at [facility] - attempting to get records #possible pancreatic head mass - incidental finding on AP CT. LFTs WNL. Patient has reported decreased appetite and family concerned for cancer. Unfortunately, MRI unable to be completed as we have not be able to obtain information on her stent to see if it is compatbile with the new MRI machiene. She hunt not have to remain inpatient to have this done. #Nicotine use - 1/2 ppd declines nicotine patch on admission, encourage smoking cessation #Aortic valve replacement | hx of afib Continue warfarin INR 2.9 on admission, goal 2.5-3.5. Recheck AM With lump behind knee - will check doppler - no DVT, hematomas that have caused this, color developing as day progresses, heat/ice for comfort #CKDrenal function at baseline. #GERD - continue home PPI and famotidine #Anemiaresolved, was previously 2/2 GI bleeds. Hgb 13.1. Patient denies any recent signs/symptoms of bleeding. VTE ppx: continue Warfarin Dispo: continued inpatient stay monitoring kidney function Niece updated extensively at bedside 08/26 & 08/28 Granddaughter updated by phone 08/27 Admission and Anticipated Discharge Date Admission Date: August 25, 2024 Subjective patient seen lying in bed, reports that she woke up not feeling good, but unable to describe what is wrong with multiple clarifying questions. The only thing she is able to tell me is that she woke up at 430 and sat on the side of the bed for 3 hours when asked when is the last time she woke up and felt good in the morning she is unable to clarify - at least weeks Regarding her neck pain - currently on the side of her neck but reports it trrabels, sometimes in her arms, sometimes makes her eyes water she does report painful lump in the back of her leg report poor PO intake Tele - SR/SB with 1st AV block 50-60s Review of Systems Review of Systems: All systems reviewed & are unremarkable except as noted in Subjective Physical Exam Physical Exam: General: NAD, VS as above, sitting up on the side of the bed Resp: normal respiratory effort, CV: well perfused, bradycardic + murmur Abd: soft, nontender Extremities: palpable mass behind left knee, mildly tender to touch and + olive sign. suspect lipoma but will r/o DVT Neuro: A&O x3, Results & Data Results & Data Vital Signs (Past 12 Hours) Vital Signs Temp Pulse Pulse Resp BP BP Pulse Ox 08/28/24 10:36 08/28/24 07:28 97.9 F 53 L 18 153/81 H 98 08/28/24 07:12 49 L 08/28/24 03:11 97.3 F L 49 L 16 141/80 H 98 08/27/24 23:06 57 L 08/27/24 22:57 97.3 F L 52 L 16 135/83 97 O2 Del Method 08/28/24 10:36 Room Air 08/28/24 07:28 Room Air 08/28/24 07:12 08/28/24 03:11 Room Air 08/27/24 23:06 08/27/24 22:57 Room Air Laboratory Results CBC /cemistru/ CRP reviewed PG Care Time/CCT Total # of Minutes Spent Total Time Spent with Patient: Total time spent is greater than 50% in coordination of care (as documented) at patient's floor/unit and/or counseling patient: Coding Level of Care Code 29789 SUB INP/OBS CARE 3/50MIN Diagnoses Hypertensive urgency I16.0 Headache R51.9 Carotid artery stenosis I65.29 Mass of head of pancreas K86.89"
[2024-08-28] MEDS: POLYETHYLENE (MIRALAX) 17 GM PACK PO PRN (11:24)
[2024-08-28] MEDS: predniSONE 20 MG TAB PO SCH (11:24)
--- NOTE | 2024-08-28 13:57 | Ultrasound Report ---
LEFT LOWER EXTREMITY VENOUS DOPPLER HISTORY: eval for clot COMPARISON STUDY: None FINDINGS: No evidence of DVT seen at the left lower extremity. . At the sites of palpable complaint at the left popliteal fossa there is an oval mixed echogenicity fi nding in the superficial soft tissues just deep to the skin measuring 1.2 cm greatest dimension and t here is a similar finding superficially left distal medial thigh measuring 1.5 cm greatest dimension. These could represent infected sebaceous cysts or small superficial abscesses/phlegmon or subacute h ematomas. IMPRESSION: No DVT seen at the left lower extremity. . ACT 112: Negative or not required by law. Electronically signed by: Alvaro Blakely M.D. 08/28/2024 1:55 PM
[2024-08-28 15:52] LABS: BUN Creatinine Ratio 21.5 (10-20); Calcium 8.8 mg/dl (8.6-10.3); Potassium 5.6 mmol/L (3.5-5.1)
[2024-08-28] MEDS: CAPSAICIN CR 0.075% 60 GM TUBE EXT PRN (16:40)
[2024-08-28] MEDS: SODIUM ZIRCONIUM CYCLOSILICATE 10 GM PACKET PO SCH (16:40)
[2024-08-28] MEDS: WARFARIN SOD 5 MG TAB PO ONE (16:51)
[2024-08-28] MEDS: amLODIPine BESYLATE 5 MG TAB PO SCH (21:45)
[2024-08-29 07:38] LABS: BUN Creatinine Ratio 26.5 (10-20); C Reactive Protein 1.48 mg/dl (0-0.5); Calcium 8.8 mg/dl (8.6-10.3); Creatinine Clr Calc Pharmacy 24.7 ml/min
[2024-08-29 08:00] LABS: INR 4.1 (0.9-1.1); Prothrombin Time 39.2 Seconds (9.0-12.0)
[2024-08-29 08:09] VITALS: RESP 18; O2SAT 96
[2024-08-29 11:37] VITALS: BP 148/84; TEMP 98.1
--- NOTE | 2024-08-29 12:03 | Discharge Summary ---
Discharge Summary Date of Service August 29, 2024 Principal Dx & Hospital Course #1 = Principal Diagnosis (1) Hypertensive urgency: (2) Headache: (3) Carotid artery stenosis: (4) Mass of head of pancreas: Plan #HTN urgency/headache | severe | CHF Patient is an 84-year-old female with past medical history of hypertension, severe , CHF, CKD, aortic valve replacement on Coumadin, history of GI bleed. Patient presented via EMS after referral from her PCP due to hypertension. Patient has missed lisinopril and metoprolol for several days due to being out of her prescription. She stated she has had headache, tinnitus, blurry vision, dizziness, and unsteadiness for several days. blood pressure is more controlled on home medications, however Lasix and lisinopril held with GERSON but without significant elevations. Recommend restarting when GERSON has resolved. Metoprolol has been decreased to 12.5 mg every morning, amlodipine has been switched to at bedtime. Suspect vision changes are relate to chronic glaucoma/poor optometry f/u 2/2 multiple hospitalizations - she should have optometry follow-up KAILEY. #Neck Pain Cause unclear. seems to have MSK components. Unable to MRI at this time. Pain options limited - NO NSAIDs, including topicals with hx of GI bleeds and warfarin. current regimen: Tramadol, Tylenol, lidocaine patch, capsaicin cream, heat and ice Short course of prednisone 40 mg #GERSON/Hyperkalemia Cr down to 1.62 today, baseline ~ 1.2. Continue to hold lisinopril and lasix hyperkalemia improved to 5.0 after 2 doses of Lokelma, expect this will continue to prove when Lasix was restarted recommend repeat BMP tomorrow #Right ICA stenosis - neck cta Showed severe stenosis of right carotid bulb and proximal right ICA with 80 to 90% diameter narrowing (increased from 75% with recent imaging). Elevated lipids, statin started. recommend out pt vascular referral, discussed with family may be poor surgical candidate Does have stent in left side - placed about 7-8 years ago per pt report, at [facility] - attempting to get records #possible pancreatic head mass - incidental finding on AP CT. LFTs WNL. Patient has reported decreased appetite and family concerned for cancer. Unfortunately, MRI unable to be completed as we have not be able to obtain information on her stent to see if it is compatible with the new MRI machiene. this can be ordered by her PCP once records are received from the MRI department. #Aortic valve replacement | hx of afib Continue warfarin, INR 4.1 today, likely due to coadministration of Lokelma and Coumadin yesterday. Hold warfarin today, recommend checking INR in a.m. Hematomas left leg/knee, heat/ice for comfort. Doppler negative for DVT #CKDrenal function at baseline. #GERD - continue home PPI and famotidine #Anemiaresolved, was previously 2/2 GI bleeds. Hgb 13.1. Patient denies any recent signs/symptoms of bleeding. #Nicotine use - / ppd, encourage smoking cessation Dispo: discharged to [facility] today Niece updated extensively at bedside 08/26 & 08/28 Granddaughter updated by phone 08/27 Notes For Next Care Provider records release sent for her carotid stent placement to be verified by the MRI department that she is able to have an MRI for her pancreas Recommend outpatient vascular surgery referral Recommend a.m. BMP and INR at [facility] on 08/30 Admission HPI Per Admitting Provider Patient is an 84-year-old female with past medical history of hypertension, CKD, aortic valve replacement on Coumadin, history of GI bleed. Patient presented via EMS after referral from her PCP due to hypertension. Patient has missed lisinopril and metoprolol for several days due to being out of her prescription. She stated she has had headache, tinnitus, blurry vision, dizziness, and unsteadiness for several days. Patient seen at bedside with her niece present. She stated that she has missed lisinopril metoprolol for several days due to her prescription not being filled. She is still been taking amlodipine and her Coumadin. Patient went to her PCP today who referred her in due to an elevated blood pressure and slight fever. Patient stated she has had a headache for several days which started in the middle of her neck and progressed upward through her head and alternates [id number] to bilateral temporal regions and results in tinnitus alternating bilaterally. 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 She stated that symptoms get worse when she stands up and she becomes unsteady on her feet and dizzy. Pain is not reproducible by palpation at bedside. Patient denies any fever, chills, chest pain, shortness of breath, abdominal pain, nausea, vomiting, diarrhea, melena, hematochezia, numbness or tingling. She still smokes approximately half a pack of cigarettes per day, declines need for nicotine patch at this time. She lives at home alone. She wishes to change her CODE STATUS to full code. Discharge Exam General: NAD, VS as above, lying in bed, appears better than prior days Resp: normal respiratory effort, CV: well perfused, bradycardic + murmur Abd: soft, nontender Extremities: bruising still mildly tender on left leg, nonpitting edema to lower extremities Neuro: A&O x3, Discharge Plan Discharge Items Patient Disposition: Transfer Inpatient Rehab Fac Reason For Visit: HTN URGENCY, HEADACHE Discharge Diagnosis: Hyperntensive urgency, GERSON Condition on Discharge: Fair Activity: As commented below Activity Comment: work with therpay to get stronger Weightbearing: Full weightbearing Non-emergency contact: Primary Care Provider Call non-emergency contact if: you have any medication questions and your pain i s not controlled Follow-up/Referrals: Song Pritchard CRNP [Primary Care Provider] - (follow up after discharge from [facility] ) Diet: Heart Healthy Addtl Attending Provider Instructions: Ms. Ty, You were hospitalized after having headaches and high blood pressure. You blood pressures have been well controlled with home medications. It is very important that you follow up with your eye doctor KAILEY to address your blurry vision. Once your records are received about your neck stent, your PCP can order the MRI for your pancreas. Please make sure you have all the meds you need upon discharge from [facility]. You were started on cholesterol medication to help control the plaque buildup in your neck. If you are having trouble getting your meds at home, you should consider moving to an assisted living for more assistance. For [facility] - INR 4.1 day of discharge, likely from coadministration of Coumadin and Lokelma, Coumadin held today, recommend recheck INR in AM - GERSON resolving down to 1.6 day of discharge (baseline ~ 1.2) - recommend BMP. Lasix and losartan have been on hold because of this - hypertensive urgency due to running out of meds at home - please make sure she has everything she needs at discharge - metoprolol decreased to 12.5 and amlodipine changed to HS - needs optometry follow kailey - outpatient referral to vascular surgery for carotid stenosis - continue prednisone for 3 more days for next pain Pending Studies at Discharge: No Stand-Alone Forms: My [facility] Skilled Items Patient informed of condition?: Yes DNR: Yes Discharge Level of Care: Acute rehab Communicable Disease: No Discharge Prognosis: Stable Lines: None Urinary Catheter: No Medications and DC Order Prescriptions: New atorvastatin 40 mg Tablet 40 mg PO QAM Qty: 30 0RF amlodipine [Norvasc] 5 mg Tablet 5 mg PO HS Qty: 30 0RF lidocaine 5 % Adhesive Patch,Medicated 1 patch transdermal QAM Qty: 10 0RF metoprolol succinate 25 mg Tablet Extended Release 24 Hr 12.5 mg PO QAM Qty: 15 0RF Zostrix 0.033 % Cream 1 applic EXT TID PRN (Reason: pain) Qty: 15 0RF prednisone 20 mg Tablet 40 mg PO QAM Qty: 3 0RF Continued famotidine 20 mg tablet 20 mg PO DAILY (DME) Shower Chair Misc See Rx Instructions .Route Qty: 1 0RF Rx Instructions: As directed, bench that extends from outside to inside of tub latanoprost 0.005 % Drops 1 drp OPB PM Rx Instructions: both eyes pantoprazole 40 mg Tablet,Delayed Release (Dr/Ec) 40 mg PO BID Qty: 30 0RF dorzolamide 2 % drops 1 drp OPB UD Rx Instructions: Last filled 01/05/24 x50 day supply. Original Directions: 1 drop into both eyes twice daily brimonidine 0.2 % drops 1 drp OPB UD Rx Instructions: Last filled 02/14/24 x16 day supply. Original Directions: 1 drop into both eyes TID tramadol 50 mg tablet 50 mg PO TID PRN (Reason: pain) Qty: 0 0RF gabapentin 100 mg capsule 200 mg PO HS gabapentin 100 mg capsule 100 mg PO DAILY@0700,1300 Held lisinopril 10 mg tablet 10 mg PO DAILY Qty: 90 3RF Hold Instructions: Provider's Order - pending GERSON Rx Instructions: PER PT'S DAUGHTER, "RAN OUT A COUPLE DAYS AGO". warfarin 5 mg tablet 5 mg PO DAILY@1600 Hold Instructions: Provider's Order - pending repeat INR Patient Comments: Currently taking 5 mg daily. last INR 5.3 on 05/09 furosemide 20 mg tablet 20 mg PO DAILY Qty: 90 3RF Hold Instructions: Provider's Order - pending GERSON Discontinued amlodipine 2.5 mg tablet 5 mg PO QAM metoprolol succinate 25 mg Tablet Extended Release 24 Hr 25 mg PO QAM Qty: 30 0RF Rx Instructions: PER PT'S DAUGHTER, "RAN OUT A COUPLE DAYS AGO". Discharge Orders: Discharge Order (Routine); Ordered 08/29/24 Ordered By: Leona Figueroa Admission Data Admit Date/Time: 08/25/24 20:12 Attending Provider: Demarco Grover Admit Provider: Neymar Daniel Primary Care Provider: Song Pritchard Other Providers: Neymar Daniel; [facility]; [facility] Stay Data Consultations 08/25/24 19:31 ED Decision to Admit Stat Diagnostic Imagining Performed Chest X-Ray 08/25/24 16:59 INDICATION: Chest pain. TECHNIQUE: Frontal radiograph of the chest. COMPARISON: Radiograph from 05/28/2024. FINDINGS: Cardiomegaly. Mild pulmonary vascular congestion. No infiltrate, pleural effusion or pneumothorax. No acute osseous abnormality evident. IMPRESSION: Mild pulmonary vascular congestion. Electronically signed by Antony Rosales 08-25-2024 6:[address] 08/25/24 16:59 Clinical History: Blurry vision and headache Technique: Axial computed tomography images were obtained of the brain without intravenous contrast. Comparison is made to the prior CT dated 05/27/2024 Findings: There is unchanged cerebral atrophy, within expected limits for the patient's age. Areas of decreased attenuation are seen within the periventricular white matter, likely representing chronic small vessel ischemic disease. There is a small old infarct of the right caudate nucleus. There is no definite sign of acute infarction. No intracranial hemorrhage is evident. No definite mass lesion is seen on this noncontrast examination. There is no midline shift or other form of herniation. No hydrocephalus is seen. No fracture is identified. The orbits and the visualized paranasal sinuses appear unremarkable. The mastoid air cells appear clear. Impression: 1. Cerebral atrophy and chronic small vessel ischemic disease 2. 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 No definite acute pathology Electronically signed by Adolfo Hartman 08-25-2024 6:44 PM Head CTA 08/25/24 16:59 Technique: Axial computed tomography images were obtained of the brain after the administration of intravenous contrast according to the CT angiogram protocol Findings: There is calcified plaque within the cavernous and supraclinoid segments of the internal carotid arteries bilaterally and without significant stenosis No definite stenosis or aneurysm is seen of the anterior, middle, or posterior cerebral artery circulations. The visualized vertebral arteries and the basilar artery appear unremarkable Impression: No definite stenosis or aneurysm of the intracranial arteries Electronically signed by Adolfo Hartman 08-25-2024 6:45 PM Neck CTA 08/25/24 16:59 Technique: Axial computed tomography images were obtained of the neck after the administration of intravenous contrast according to the CT angiogram protocol Findings: There is mild multifocal plaque within the common carotid arteries bilaterally, without significant stenosis. There is a severe stenosis of the right carotid bulb and proximal right internal carotid artery, with 80-90% diameter narrowing. There is atherosclerotic plaque in the left carotid bulb and proximal left internal carotid artery, without significant stenosis. There is a severe stenosis of the origin of the left external carotid artery. There is also a severe stenosis at the origin of the right external carotid artery The vertebral arteries are patent bilaterally with no significant stenosis seen. The visualized thoracic aorta appears unremarkable There is multilevel degenerative disc disease and osteoarthritis of the cervical spine. There is mild emphysema Impression: 1. Severe stenosis of the right carotid bulb and proximal right ICA, with 80-90% diameter narrowing 2. Severe stenoses of the proximal ECA bilaterally ACT 112: Positive. There are findings on this exam that require communication between the performing entity and the patient following Patient Test Result Information Act ([place] ACT 112) guidelines. Electronically signed by Adolfo Hartman 08-25-2024 6:51 PM Abdomen/Pelvis CT 08/25/24 17:09 Technique: Axial computed tomography images were obtained of the abdomen and pelvis after the administration of intravenous contrast. Comparison is made to the prior CT dated 03/18/2024. Findings: The liver is overall of normal size, attenuation, and contour with no sign of cirrhosis or significant fatty infiltration. There is a suspected 5 mm cyst in the liver dome. No liver mass lesion is seen. The portal vein is patent. There are suspected small gallstones. There is no definite sign of acute cholecystitis. There is mild bile duct dilatation is noted, with the common bile duct measuring up to 8 mm. The spleen is of normal size. No focal splenic lesion is evident. The pancreatic duct is mildly dilated, measuring up to 4 mm. There is a questionable obstructing mass within the pancreatic head, measuring up to 1.5 cm. This is best seen on image 52 of the coronal reconstructions. There is no sign of acute pancreatitis. The adrenal glands appear unremarkable. No definite renal or proximal ureteral calculi are seen on this contrast-enhanced study. There is unchanged right hydronephrosis with prominent dilatation of the right renal pelvis. There is no hydroureter or visible obstructing calculus or mass. There are multiple bilateral renal cysts, measuring up to 4.4 cm. The abdominal aorta is of normal caliber. There is multifocal atherosclerotic plaque. No abdominal adenopathy is seen. The stomach appears normal. There is no sign of small bowel obstruction. There is diverticulosis without evidence of diverticulitis. No free intraperitoneal fluid or air is identified. No distal ureteral or bladder calculi are seen. No bladder mass lesion is evident. 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 No pelvic adenopathy is noted. The lungs bases appear clear. A left hip replacement is again seen, resulting in surrounding artifact. 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 There is lumbar scoliosis and degenerative disc disease. No fracture is identified. No focal osseous lesion is seen Impression: 1. Possible small pancreatic head mass. Pancreatic protocol abdominal MRI with and without contrast could be obtained for further evaluation 2. Mild bile duct dilatation and mild pancreatic ductal dilatation 3. Cholelithiasis without evidence of acute cholecystitis 4. Hepatic and bilateral renal cysts 5. Unchanged right hydronephrosis without visible obstructing lesion. This could be due to chronic intrinsic UPJ obstruction or may be residual from prior obstruction or reflux 6. Diverticulosis without evidence of diverticulitis 7. 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 There are findings on this exam that require communication between the performing entity and the patient following Patient Test Result Information Act ([place] ACT 112) guidelines. Electronically signed by Adolfo Hartman 08-25-2024 7:01 PM Venous Doppler Study 08/28/24 10:51 LEFT LOWER EXTREMITY VENOUS DOPPLER HISTORY: eval for clot COMPARISON STUDY: None FINDINGS: No evidence of DVT seen at the left lower extremity. . At the sites of palpable complaint at the left popliteal fossa there is an oval mixed echogenicity finding in the superficial soft tissues just deep to the skin measuring 1.2 cm greatest dimension and there is a similar finding superficially left distal medial thigh measuring 1.5 cm greatest dimension. These could represent infected sebaceous cysts or small superficial abscesses/phlegmon or subacute hematomas. IMPRESSION: No DVT seen at the left lower extremity. . ACT 112: Negative or not required by law. Electronically signed by: Alvaro Blakely M.D. 08/28/2024 1:55 PM Pending Results Patient Have Any Pending Studies at Discharge: No Discharge Instructions Given to Patient (Per Discharging Provider) Ms. Ty, You were hospitalized after having headaches and high blood pressure. You blood pressures have been well controlled with home medications. It is very important that you follow up with your eye doctor KAILEY to address your blurry vision. Once your records are received about your neck stent, your PCP can order the MRI for your pancreas. Please make sure you have all the meds you need upon discharge from [facility]. You were started on cholesterol medication to help control the plaque buildup in your neck. If you are having trouble getting your meds at home, you should consider moving to an assisted living for more assistance. For [facility] - INR 4.1 day of discharge, likely from coadministration of Coumadin and Lokelma, Coumadin held today, recommend recheck INR in AM - GERSON resolving down to 1.6 day of discharge (baseline ~ 1.2) - recommend BMP. Lasix and losartan have been on hold because of this - hypertensive urgency due to running out of meds at home - please make sure she has everything she needs at discharge - metoprolol decreased to 12.5 and amlodipine changed to HS - needs optometry follow kailey - outpatient referral to vascular surgery for carotid stenosis - continue prednisone for 3 more days for next pain Total Time Total Time Spent Total Time Spent (In Minutes): Time spent day of discharge 38 minutes including direct patient care, medication reconciliation, documentation, review of labs and images, and coordination of care. Coding Level of Care Code 65808 INP/OBS DISCH >30 MIN Diagnoses Hypertensive urgency I16.0 Headache R51.9 Carotid artery stenosis I65.29 Mass of head of pancreas K86.89
--- NOTE | 2024-08-29 16:16 | Electrocardiogram Report ---
Test Reason : Blood Pressure : */* mmHG Vent. Rate : 63 BPM Atrial Rate : 70 BPM P-R Int : 226 ms QRS Dur : 162 ms QT Int : 442 ms P-R-T Axes : 115 35 49 degrees QTcB Int : 452 ms Atrial fibrillation Right bundle branch block Abnormal ECG When compared with ECG of 25-Aug-2024 17:20, Nonspecific T wave abnormality now evident in Lateral leads Confirmed by Aaron Miles ([id number]) on 08/29/2024 4:15:38 PM Referred By: Song Pritchard Confirmed By: Aaron Miles
[2024-08-29 16:56] VITALS: PULSE 60
== END 2024-08-29 17:28 | DRG 305 ==
LOC: ED 15:54 → 2E 20:12 → SUATTDRO 20:12 → 2E 21:05

== ENCOUNTER 2024-09-23 11:38 | Inpatient (IN) ==
--- NOTE | 2024-09-23 12:36 | Emergency Department Note ---
Impression & Plan Rhinovirus infection, Subtherapeutic anticoagulation, Hypertension, History of medication noncompliance ED Provider Note NAME: CASTILLO CHAMORRO AGE: 84 SEX: F : 1940 ARRIVES VIA: Ambulance INFORMANT: Patient ED PROVIDER(S): Rajan Ma MD CHIEF COMPLAINT: Weakness, bodyaches, congestion, feverish PLAN: Disposition: Admit MEDICAL DECISION MAKING: The patient is a pleasant 83-year-old woman with a past medical history of mechanical aortic valve replacement on warfarin, hypertension, glaucoma, CHF, paroxysmal atrial fibrillation, history of medication non-compliance who presents to the emergency department via EMS for evaluation of cough, congestion, generalized bodyaches over the past several days. Patient presents in setting of being discharged from [facility] following rehab stay from 08/29-09/08 following discharge from admission to this facility from 08/25-08/29 for hypertensive urgency in the setting of being noncompliant with her medications due to running out of her prescription. On evaluation patient no distress, afebrile heart rate in the 90s and blood pressure 160/90s and vital signs otherwise stable. She appears euvolemic to mildly hypervolemic. She exhibits boggy nasal turbinates. EKG without overt acute ischemia. CXR negative for acute cardiopulmonary process per my personal preliminary review/interpretation. WBC within normal limits. There is mild lymphopenia of 0.92. H/H within normal limits. Platelets within normal limits. Chemistry without metabolic acidosis. Creatinine 1.9 similar to prior range values in the setting of CKD. LFTs unremarkable. High sensitive troponin is pending. INR is subtherapeutic at 1.0. Patient reports she is taking her medications and does not know why this could be so low. She understands the gravity of not being therapeutic on her warfarin and that this could cause clotting on her mechanical valve. COVID PCR, RSV PCR, and influenza PCR were negative. Respiratory [employer] did result positive for enterovirus/rhinovirus. Given the patient's symptoms in the setting of her comorbidities and suspected medication noncompliance with subtherapeutic INR in the setting of her mechanical valve she does agree with plan for admission for further management. Heparin bolus and drip ordered given patient's subtherapeutic INR for her mechanical aortic valve. Case was discussed with Dr. Mota, [facility] hospitalist, who will evaluate the patient for admission. Further management per admitting team. Triage Nursing notes reviewed and agree them. Prior/external medical records reviewed Vital Signs: reviewed Differential diagnosis: Reactive airway disease, pneumonia, pneumothorax, COPD, CHF, infections, cardiac ischemia, pulmonary embolism, musculoskeletal, gastrointestinal, as well as other pathologies. ER treatment provided: See below. Diagnostics interpreted by me: ECG: Sinus rhythm with first-degree block, 80 bpm, right bundle branch block, no overt ST ovation or depression, QTc 477, QRS 148. Cardiac Monitoring: An order for continuous cardiac monitoring was placed and demonstrated sinus rhythm, 80 bpm, no ectopy. Laboratory studies: See below Imaging studies: See below Consultation(s): Dr. Mota [facility] hospitalist HPI: Per MDM. ROS: See above HPI for pertinent positives & negatives. A total of 10 systems reviewed and were otherwise negative. VITALS:See Below PHYSICAL EXAMINATION: GENERAL: Awake, alert, fatigued-appearing, in no distress HENT: Normocephalic, atraumatic. Boggy nasal turbinates. Oropharynx unremarkable. EYES: Normal conjunctiva. Sclera non-icteric. NECK: Supple. No nuchal rigidity. FROM. No JVD. RESPIRATORY: Clear to auscultation. CARDIAC: Regular rate, normal rhythm. 3/6 systolic murmur. Extremities warm and well perfused. Pulses equal. ABDOMEN: Soft, non-distended. No tenderness to palpation. No rebound or guarding. No masses. MUSCULOSKELETAL: Chest examination reveals no tenderness. The back is symmetrical on inspection without obvious abnormality. There is no CVA tenderness to palpation. No joint edema. LOWER EXTREMITIES: Calves are equal size bilaterally and non-tender. 1+ BLE edema. No discoloration. NEURO: Normal sensorium. No sensory or motor deficits noted. SKIN: No rash or jaundice noted. Rajan Ma MD Past Med/Surg History Problem List (Updated 09/23/24 @ 15:04 by Rajan Ma MD) History of medication noncompliance (Acute) Hypertension (Acute) Subtherapeutic anticoagulation (Acute) Rhinovirus infection (Acute) Mass of head of pancreas Headache Carotid artery stenosis (Acute) Weakness (Acute) Hypertensive urgency (Acute) Gait disturbance Pressure ulcer Cerebral microvascular disease (Acute) Acute confusion (Acute) Acute hyperkalemia (Acute) GERSON (acute kidney injury) (Acute) Encephalopathy acute (Acute) Diverticulitis (Acute) Chronic back pain Glaucoma Medical History Pneumonia CKD (chronic kidney disease) stage 3, GFR 30-59 ml/min HTN (hypertension) with goal to be determined On warfarin therapy Mitral stenosis Atrial fibrillation with RVR Upper GI bleed Acute blood loss anemia Aortic stenosis Chest tightness Hydronephrosis of right kidney Macrocytic anemia Current every day smoker On warfarin therapy Surgical History Status post hip replacement Status post knee replacement H/O mechanical aortic valve replacement Family History Brother Hypertension Heart disease Sister Hypertension Heart disease Mother Hypertension Heart disease Myocardial infarction Father Hypertension Heart disease Denies family history of Ovarian cancer Prostate cancer Breast cancer Lung cancer Colorectal cancer Stroke Social History Smoking Status: Current some day smoker Tobacco Type: Cigarettes Age Started Using Tobacco: 38; packs per day: 0.50; Cigarettes Per Day: 10; Second Hand Exposure: No; Do You Dip or Chew Tobacco: No; Hx Alcohol Use: No Hx Substance Use: No Preferred Language: Bermudian Communication Ability: Effective Visual Impairment: Limited Hearing Ability: Normal 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: No Beliefs That Will Affect Care: None marital status: / Current Living Situation: Alone Current Living Situation Comment: [facility] current occupational status: retired How many Children do You have: 4 Feels Safe at Home: Yes Childhood Exposure to Second-Hand Smoke: Yes Diet: low salt caffeine: Yes Dental Care, Regularly: No Physical Activity Frequency: Does not Exercise Seatbelt Use: always Sunscreen Use: No Assistive Devices: Walker Allergies Allergies Allergy/AdvReac Type Severity Reaction Status Date / Time No Known Allergies Allergy Verified 09/17/24 14:11 Home Meds Home Medications Medication Instructions Recorded Confirmed latanoprost 0.005 % eye drops 1 drp OPB PM 07/31/23 09/23/24 brimonidine 0.2 % eye drops 1 drp OPB UD 03/18/24 09/23/24 dorzolamide 2 % eye drops 1 drp OPB UD 03/18/24 09/23/24 nitroglycerin 0.4 mg sublingual 0.4 mg sublingual DAILY PRN Chest 09/17/24 09/23/24 tablet Pain furosemide 20 mg tablet 20 mg PO DIRECTED 09/23/24 09/23/24 warfarin 2.5 mg tablet 2.5 mg PO HS 09/23/24 09/23/24 Previous Rx's Medication Instructions Recorded Shower Chair #1 ea 11/20/23 tramadol 50 mg tablet 50 mg PO TID PRN pain #0 tabs 03/30/24 lidocaine 5 % topical patch 1 patch transdermal QAM #10 ea 08/29/24 amlodipine 10 mg tablet 10 mg PO DAILY #90 tabs 09/17/24 atorvastatin 40 mg tablet 40 mg PO QAM #90 tabs 09/17/24 famotidine 20 mg tablet 20 mg PO DAILY #90 tabs 09/17/24 gabapentin 100 mg capsule 100 mg PO BID PRN pain #180 caps 09/17/24 lisinopril 10 mg tablet 10 mg PO DAILY #90 tabs 09/17/24 metoprolol succinate 25 mg 12.5 mg (1/2 x 25 mg) PO QAM #45 09/17/24 tablet,extended release 24 hr tabs pantoprazole 40 mg tablet,delayed 40 mg PO BID #180 tabs 09/17/24 release Results & Data (ED) Vital Signs Vital Signs - 24 hr 09/23/24 11:45 09/23/24 12:56 09/23/24 13:30 Temperature 36.8 C Temperature Source Oral Pulse Rate 88 85 Pulse Rate [Apical] 91 H Pulse Rate from SpO2 Sensor Respiratory Rate 21 18 Blood Pressure 156/105 H Blood Pressure [Right Arm] 161/95 H Blood Pressure Mean 122 Blood Pressure Mean [Right Arm] 117 Pulse Oximetry 99 99 Oxygen Delivery Method Room Air Room Air Sepsis Recent Fever Within 48 Hours No Sepsis New/Unexplained Change in Mental Status No Sepsis Action Taken by Nursing No Action Required 09/23/24 14:00 Temperature Temperature Source Pulse Rate 85 Pulse Rate [Apical] Pulse Rate from SpO2 Sensor 86 Respiratory Rate 17 Blood Pressure 165/82 H Blood Pressure [Right Arm] Blood Pressure Mean 109 Blood Pressure Mean [Right Arm] Pulse Oximetry 100 Oxygen Delivery Method Sepsis Recent Fever Within 48 Hours Sepsis New/Unexplained Change in Mental Status Sepsis Action Taken by Nursing Laboratory Data Attestation: I reviewed the patient's lab results. 09/23/24 12:37 09/23/24 12:37 Lab Results 09/23/24 09/23/24 09/23/24 Range/Units 11:48 11:48 11:48 WBC (4.8-10.8) K/ul RBC (4.20-5.40) M/uL Hgb (12.0-16.0) g/dl Hct (37.0-47.0) % MCV (80.0-100.0) fL MCH (25.0-34.0) pg MCHC (32.0-36.0) g/dL RDW Std Deviation (36.4-46.3) fL RDW Coeff of Xavier (11.5-14.5) % Plt Count (130-400) K/uL MPV (9.4-12.4) fL Immature Gran % (Auto) % Neut % (Auto) % Lymph % (Auto) % [place] % (Auto) % Eos % (Auto) % Baso % (Auto) % Neut # (Auto) (1.40-6.50) K/uL Lymph # (Auto) (1.20-3.40) K/uL [place] # (Auto) (0.11-0.59) K/uL Eos # (Auto) (0.00-0.50) K/uL Baso # (Auto) (0.00-0.20) K/uL Immature Gran # (Auto) (0.01-0.20) K/uL PT (9.0-12.0) Seconds INR (0.9-1.1) Sodium (136-145) mmol/L Potassium (3.5-5.1) mmol/L Chloride (98-107) mmol/L Carbon Dioxide (21-32) mmol/L Anion Gap (3-11) BUN (6-23) mg/dl Creatinine (0.6-1.2) mg/dl Est Cr Clr Drug Dosing ml/min eGFR BUN/Creatinine Ratio (10-20) Glucose (70-99(Fasting)) mg/dl Calcium (8.6-10.3) mg/dl Magnesium (1.7-2.4) mg/dl Total Bilirubin (0.2-1.0) mg/dl AST (13-39) U/L ALT (7-52) U/L Alkaline Phosphatase (34-104) U/L Troponin I High Sens (0-14) pg/ml Total Protein (6.0-8.3) gm/dl Albumin (3.4-5.0) gm/dl Globulin (2.5-4.0) gm/dl Albumin/Globulin Ratio (0.9-2) Adenovirus (PCR) Not Detected (NotDetected) B. pertussis DNA (PCR) Not Detected (NotDetected) B.parapertussis DNA PCR Not Detected (NotDetected) C. pneumoniae DNA (PCR) Not Detected (NotDetected) Coronavirus OC43 (PCR) Not Detected (NotDetected) Coronavirus HKU1 (PCR) Not Detected (NotDetected) Coronavirus 229E (PCR) Not Detected (NotDetected) SARS-CoV-2 (PCR) NEGATIVE Not Detected (Negative) Coronavirus NL63 (PCR) Not Detected (NotDetected) Human Metapneumovir PCR Not Detected (NotDetected) Influenza Type A (PCR) Negative Not Detected (Neg) Influenza Type B (PCR) Negative (Neg) M. pneumoniae (PCR) (NotDetected) Parainfluenza 1 (PCR) (NotDetected) Parainfluenza 2 (PCR) (NotDetected) Parainfluenza 3 (PCR) (NotDetected) Parainfluenza 4 (PCR) (NotDetected) RSV (RT-PCR) (Neg) RSV (PCR) (NotDetected) Entero/Rhino (PCR) (NotDetected) 09/23/24 09/23/24 Range/Units 11:48 12:37 WBC 5.94 (4.8-10.8) K/ul RBC 3.80 L (4.20-5.40) M/uL Hgb 12.8 (12.0-16.0) g/dl Hct 41.4 (37.0-47.0) % MCV 108.9 H (80.0-100.0) fL MCH 33.7 (25.0-34.0) pg MCHC 30.9 L (32.0-36.0) g/dL RDW Std Deviation 58.4 H (36.4-46.3) fL RDW Coeff of Xavier 15.1 H (11.5-14.5) % Plt Count 208 (130-400) K/uL MPV 9.4 (9.4-12.4) fL Immature Gran % (Auto) 0.5 % Neut % (Auto) 71.7 % Lymph % (Auto) 15.5 % [place] % (Auto) 6.4 % Eos % (Auto) 5.4 % Baso % (Auto) 0.5 % Neut # (Auto) 4.26 (1.40-6.50) K/uL Lymph # (Auto) 0.92 L (1.20-3.40) K/uL [place] # (Auto) 0.38 (0.11-0.59) K/uL Eos # (Auto) 0.32 (0.00-0.50) K/uL Baso # (Auto) 0.03 (0.00-0.20) K/uL Immature Gran # (Auto) 0.03 (0.01-0.20) K/uL PT 10.9 (9.0-12.0) Seconds INR 1.0 (0.9-1.1) Sodium 135 L (136-145) mmol/L Potassium 4.4 (3.5-5.1) mmol/L Chloride 102 (98-107) mmol/L Carbon Dioxide 22 (21-32) mmol/L Anion Gap 11 (3-11) BUN 33 H (6-23) mg/dl Creatinine 1.99 H (0.6-1.2) mg/dl Est Cr Clr Drug Dosing 20.1 ml/min eGFR 24.03 BUN/Creatinine Ratio 16.6 (10-20) Glucose 74 (70-99(Fasting)) mg/dl Calcium 9.8 (8.6-10.3) mg/dl Magnesium 2.5 H (1.7-2.4) mg/dl Total Bilirubin 0.8 (0.2-1.0) mg/dl AST 22 (13-39) U/L ALT 13 (7-52) U/L Alkaline Phosphatase 146 H (34-104) U/L Troponin I High Sens 37.9 H (0-14) pg/ml Total Protein 8.6 H (6.0-8.3) gm/dl Albumin 4.6 (3.4-5.0) gm/dl Globulin 4.0 (2.5-4.0) gm/dl Albumin/Globulin Ratio 1.1 (0.9-2) Adenovirus (PCR) (NotDetected) B. pertussis DNA (PCR) (NotDetected) B.parapertussis DNA PCR (NotDetected) C. pneumoniae DNA (PCR) (NotDetected) Coronavirus OC43 (PCR) (NotDetected) Coronavirus HKU1 (PCR) (NotDetected) Coronavirus 229E (PCR) (NotDetected) SARS-CoV-2 (PCR) (Negative) Coronavirus NL63 (PCR) (NotDetected) Human Metapneumovir PCR (NotDetected) Influenza Type A (PCR) (Neg) Influenza Type B (PCR) Not Detected (Neg) M. pneumoniae (PCR) Not Detected (NotDetected) Parainfluenza 1 (PCR) Not Detected (NotDetected) Parainfluenza 2 (PCR) Not Detected (NotDetected) Parainfluenza 3 (PCR) Not Detected (NotDetected) Parainfluenza 4 (PCR) Not Detected (NotDetected) RSV (RT-PCR) Negative (Neg) RSV (PCR) Not Detected (NotDetected) Entero/Rhino (PCR) DETECTED A (NotDetected) Administered Medications Discontinued Medications Acetaminophen (Ofirmev) 1,000 mg in 100 mls @ 400 mls/hr IV NOW STA Stop: 09/23/24 13:57 Last Infusion: 09/23/24 14:11 Dose: Infused Documented By: Admin: 09/23/24 13:56 Dose: 400 mls/hr Documented By: NRB Imaging Data Radiologist's Impression: Chest X-Ray 09/23/24 12:03 XR chest 1V portable CLINICAL HISTORY: HTN COMPARISON STUDY: 08/25/2024 FINDINGS: Stable CABG. Stable cardiomegaly with pulmonary vascular congestion. Stable mild pulmonary interstitial prominence. No consolidation or pleural effusion. No pneumothorax. IMPRESSION: Stable CHF. ACT 112: Negative or not required by law. Electronically signed by: Alvaro Blakely M.D. 09/23/2024 1:13 PM Discharge Plan Visit Data Chief Complaint: Illness Stated Complaint: HTN, CARDIAC ASSESSMENT ED Provider: Rajan Ma Discharge Problem: Rhinovirus infection, Subtherapeutic anticoagulation, Hypertension, History of medication noncompliance Patient Disposition: Being Evaluated by Hospitalist Condition: Fair Forms Stand Alone Forms: My [facility] Prescriptions Prescriptions: No Action nitroglycerin 0.4 mg tablet, sublingual 0.4 mg sublingual DAILY PRN (Reason: Chest Pain) amlodipine 10 mg tablet 10 mg PO DAILY Qty: 90 3RF atorvastatin 40 mg tablet 40 mg PO QAM Qty: 90 3RF famotidine 20 mg tablet 20 mg PO DAILY Qty: 90 3RF metoprolol succinate 25 mg tablet extended release 24 hr 12.5 mg PO QAM Qty: 45 3RF pantoprazole 40 mg tablet,delayed release (DR/EC) 40 mg PO BID Qty: 180 3RF lisinopril 10 mg tablet 10 mg PO DAILY Qty: 90 3RF Hold Instructions: Provider's Order - pending GERSON Rx Instructions: Last filled 06/2024 x65 day supply. Unable to verify w/ pt if currently taking. gabapentin 100 mg capsule 100 mg PO BID PRN (Reason: pain) Qty: 180 3RF (DME) Shower Chair Misc See Rx Instructions .Route Qty: 1 0RF Rx Instructions: As directed, bench that extends from outside to inside of tub latanoprost 0.005 % Drops 1 drp OPB PM Rx Instructions: both eyes warfarin 2.5 mg tablet 2.5 mg PO HS furosemide 20 mg tablet 20 mg PO DIRECTED Rx Instructions: 20 mg orally take Sunday, Sunday and Sunday; Unable to verify med w/ pt. Not on file w. pharmacy dorzolamide 2 % drops 1 drp OPB UD Rx Instructions: Last filled 01/05/24 x50 day supply. Unable to verify med w/ pt. Not on file w. pharmacy as recent fill brimonidine 0.2 % drops 1 drp OPB UD Rx Instructions: Last filled 02/14/24 x16 day supply. Unable to verify med w/ pt. Not on file w. pharmacy as recent fill tramadol 50 mg tablet 50 mg PO TID PRN (Reason: pain) Qty: 0 0RF lidocaine 5 % Adhesive Patch,Medicated 1 patch transdermal QAM Qty: 10 0RF Rx Instructions: Unable to verify med w/ pt. Not on file w. pharmacy Referrals Referrals: Song Pritchard CRNP [Primary Care Provider] - Discharge Problem: Hypertension Qualifiers: Hypertension type: unspecified Qualified Code(s): I10 - Essential (primary) hypertension
[2024-09-23 12:50] LABS: Basophils # (auto) 0.03 K/uL (0.00-0.20); Basophils % (auto) 0.5 %; Eosinophils # (auto) 0.32 K/uL (0.00-0.50); Eosinophils % (auto) 5.4 %; Hematocrit (blood only) 41.4 % (37.0-47.0); Hemoglobin 12.8 g/dl (12.0-16.0); Immature Granulocytes # (auto) 0.03 K/uL (0.01-0.20); Immature Granulocytes % (auto) 0.5 %; Lymphocytes # (auto) 0.92 K/uL (1.20-3.40); Lymphocytes % (auto) 15.5 %; Mean Corpuscular Hemoglobin 33.7 pg (25.0-34.0); Mean Corpuscular Hgb Conc 30.9 g/dL (32.0-36.0); Mean Corpuscular Volume 108.9 fL (80.0-100.0); Mean Platelet Volume 9.4 fL (9.4-12.4); Monocytes # (auto) 0.38 K/uL (0.11-0.59); Monocytes % (auto) 6.4 %; Neutrophils # (auto) 4.26 K/uL (1.40-6.50); Neutrophils % (auto) 71.7 %; Platelet Count 208 K/uL (130-400); RDW Coefficient of Variation 15.1 % (11.5-14.5); RDW Standard Deviation 58.4 fL (36.4-46.3); White Blood Count 5.94 K/ul (4.8-10.8)
[2024-09-23 12:54] LABS: Influenza A virus by PCR Negative (Neg); Influenza B virus by PCR Negative (Neg); RSV by PCR Negative (Neg); SARS CoV2 RNA(COVID-19) Ceph NEGATIVE (Negative)
[2024-09-23 13:01] LABS: Albumin Level 4.6 gm/dl (3.4-5.0); Bilirubin,Total 0.8 mg/dl (0.2-1.0); Calcium 9.8 mg/dl (8.6-10.3); Magnesium 2.5 mg/dl (1.7-2.4); Potassium 4.4 mmol/L (3.5-5.1)
[2024-09-23 13:07] LABS: Albumin Globulin Ratio 1.1 (0.9-2); BUN Creatinine Ratio 16.6 (10-20); Creatinine Clr Calc Pharmacy 20.1 ml/min; Total Protein 8.6 gm/dl (6.0-8.3)
--- NOTE | 2024-09-23 13:14 | XRay Report ---
XR chest 1V portable CLINICAL HISTORY: HTN COMPARISON STUDY: 08/25/2024 FINDINGS: Stable CABG. Stable cardiomegaly with pulmonary vascular congestion. Stable mild pulmonary interstitial prominence. No consolidation or pleural effusion. No pneumothorax. IMPRESSION: Stable CHF. ACT 112: Negative or not required by law. Electronically signed by: Alvaro Blakely M.D. 09/23/2024 1:13 PM
[2024-09-23 13:22] LABS: Prothrombin Time 10.9 Seconds (9.0-12.0)
[2024-09-23] MEDS: ACETAMINOPHEN 1,000 MG/100 ML VIAL IV STA (13:56)
--- NOTE | 2024-09-23 14:21 | History & Physical Report ---
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 # Subtherapeutic INR | mechanical aortic valve prosthesis INR 1.0 on arrival Patient reports she ran out of her medications at home Heparin IV low-dose with bolus started in the ED Patient is unsure who she follows with for anticoagulation; follows with Dr. Kramer and Dr. Beth for valve Spoke with Dr. Akers ([facility]), appreciate his assistance Per most recent records, PT/INR was low at 1.2 on 09/18 Valve replaced in 1984, meaning that her PT/INR goal is 2.5 - 3.5 Upon discharge, please send a message to [facility] cardiology (or Dr. Akers) to set up follow-up with with [facility] anticoagulation clinic (for medication distribution and close INR monitoring) Continue warfarin daily Continue IV heparin for bridge Trend PT/INR # Entero-/rhinovirus No leukocytosis; afebrile CXR with stable cardiomegaly and pulmonary vascular congestion; no consolidation or pleural effusions Entero-/rhinovirus (+) on arrival Isolation precautions Supportive care Acetaminophen as needed for pain/fever Titrate support oxygen as needed to maintain SpO2 >94% #GERSON Mild; creatinine 1.99 on arrival (baseline 1.62) Hold lisinopril, Lasix Avoid nephrotoxic agents where possible Trend renal function #HFpEF Last echocardiogram on 05/28/2024 revealed LVEF at >70% CXR with cardiomegaly and pulmonary vascular congestion Daily weights Strict I&O monitoring Hold Lasix (as above) #Elevated troponin Troponin 37.9 on arrival; repeat pending. ECG without ischemic changes Clinically, patient denies chest pain, pleuritic CP, or SOB at rest Suspect elevated in the setting of viral infection Continuous telemetry monitoring for now #Everyday tobacco cigarette smoker 0.5 PPD; continue to encourage smoking cessation Nicotine patch daily #H/o medication non-compliance | FTT | recurrent hospitalizations Per review of prior notes Recurrent [place] hospitalizations, most recently: (04/04/2024, 04/23/2024, 05/27/2024, and 08/25/2024) PT/OT evaluations appreciated Case management consult appreciated for additional resources/potential placement upon discharge #H/o recurrent GI bleeds Noted; clinically, patient denies blood in her stool/melena Hb 12.8 on arrival; continue to monitor while receiving heparin #HTN Continue amlodipine, metoprolol #GERD Continue famotidine, PPI #HLD Continue atorvastatin Disposition: Admit to Medr telemetry VTE PPx: Continue heparin IV while bridging INR Provided update to patient's niece (Love) at bedside on 09/23 regarding labs/imaging/admission status. Called patient's granddaughter (Josseline) on 09/23 and provided update. History of Present Illness Chief Complaint: Illness Primary Care Provider: DARNELL Lemus Mrs. Ty is an 84-year-old female with PMH of glaucoma, CKD, encephalopathy, mechanical AVR now with recurrent severe aortic stenosis, INES, and HTN urgency. 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 She was reports she developed diarrhea several days ago. No sick contacts or knowledge. Patient lives on her own. She reports taking her regular morning medicine today, and managing her own pills at home; however, she reports that she ran out of her warfarin. She has been calling to have it picked up, but not taking it. She also reports she has home health nurse come by and help with putting pills in boxes. Patient is a current everyday tobacco cigarette smoker; 0.5 PPD; she would like a nicotine patch while here. She denies any recent alcohol use. Additionally, she reports that she developed diarrhea a few days ago; liquid in consistency; brown in color; no melena or bright red blood in the stool. Patient denies using supplemental oxygen at baseline or CPAP at night. No history of DVT/PE to her knowledge. Patient is hypertensive at 161/95; vitals otherwise stable. ED course: Acetaminophen 1000 mg IV Low-dose heparin IV + bolus ROS: Patient endorses sweating, chills, body aches, joint pain, generalized weakness, MENDEZ, productive cough, diarrhea, and numbness in the fingers and toes b/l. Patient denies fever, SOB at rest, chest pain, rashes, tick bites, chest palpitations, pleuritic CP, abdominal pain, N/V, burning with urination, or blood in the urine/stool. Addendum: Provided update to patient's niece (Love) at bedside. Niece reports that she was recently at [facility], but got out 2 weeks ago. She had a follow-up appointment with her donor center technician (Dr. Kramer) who placed her back on Lasix 3 times weekly for lower extremity edema. Patient lives independently, and niece reports that she did have a nurse come in to draw her blood last week, but she never heard about an INR (unclear if this was drawn). Niece also reports that the patient was at her eye doctor yesterday for glaucoma, and there was some concern about elevated eye pressure. Allergies Allergy/AdvReac Type Severity Reaction Status Date / Time No Known Allergies Allergy Verified 09/17/24 14:11 Home Medications Medication Instructions Recorded Confirmed Type latanoprost 0.005 % eye drops 1 drp OPB PM 07/31/23 09/23/24 History Shower Chair #1 ea 11/20/23 08/25/24 Rx brimonidine 0.2 % eye drops 1 drp OPB UD 03/18/24 09/23/24 History dorzolamide 2 % eye drops 1 drp OPB UD 03/18/24 09/23/24 History tramadol 50 mg tablet 50 mg PO TID PRN pain #0 tabs 03/30/24 09/23/24 Rx lidocaine 5 % topical patch 1 patch transdermal QAM #10 ea 08/29/24 09/23/24 Rx amlodipine 10 mg tablet 10 mg PO DAILY #90 tabs 09/17/24 09/23/24 Rx atorvastatin 40 mg tablet 40 mg PO QAM #90 tabs 09/17/24 09/23/24 Rx famotidine 20 mg tablet 20 mg PO DAILY #90 tabs 09/17/24 09/23/24 Rx gabapentin 100 mg capsule 100 mg PO BID PRN pain #180 caps 09/17/24 09/23/24 Rx lisinopril 10 mg tablet 10 mg PO DAILY #90 tabs 09/17/24 09/23/24 Rx metoprolol succinate 25 mg 12.5 mg (1/2 x 25 mg) PO QAM #45 09/17/24 09/23/24 Rx tablet,extended release 24 hr tabs nitroglycerin 0.4 mg sublingual 0.4 mg sublingual DAILY PRN Chest 09/17/24 09/23/24 History tablet Pain pantoprazole 40 mg tablet,delayed 40 mg PO BID #180 tabs 09/17/24 09/23/24 Rx release furosemide 20 mg tablet 20 mg PO DIRECTED 09/23/24 09/23/24 History warfarin 2.5 mg tablet 2.5 mg PO HS 09/23/24 09/23/24 History Past Med/Surg History Problem List (Updated 09/23/24 @ 15:04 by Rajan Ma MD) History of medication noncompliance (Acute) Hypertension (Acute) Subtherapeutic anticoagulation (Acute) Rhinovirus infection (Acute) Mass of head of pancreas Headache Carotid artery stenosis (Acute) Weakness (Acute) Hypertensive urgency (Acute) Gait disturbance Pressure ulcer Cerebral microvascular disease (Acute) Acute confusion (Acute) Acute hyperkalemia (Acute) GERSON (acute kidney injury) (Acute) Encephalopathy acute (Acute) Diverticulitis (Acute) Chronic back pain Glaucoma Medical History Pneumonia CKD (chronic kidney disease) stage 3, GFR 30-59 ml/min HTN (hypertension) with goal to be determined On warfarin therapy Mitral stenosis Atrial fibrillation with RVR Upper GI bleed Acute blood loss anemia Aortic stenosis Chest tightness Hydronephrosis of right kidney Macrocytic anemia Current every day smoker On warfarin therapy Surgical History Status post hip replacement Status post knee replacement H/O mechanical aortic valve replacement Family History Brother Hypertension Heart disease Sister Hypertension Heart disease Mother Hypertension Heart disease Myocardial infarction Father Hypertension Heart disease Denies family history of Ovarian cancer Prostate cancer Breast cancer Lung cancer Colorectal cancer Stroke Social History Smoking Status: Current every day smoker Tobacco Type: Cigarettes Age Started Using Tobacco: 38; packs per day: 0.50; Cigarettes Per Day: 10; Second Hand Exposure: No; Do You Dip or Chew Tobacco: No; Tobacco Cessation Education Requested by Patient: No (declines) Hx Alcohol Use: No Hx Substance Use: No Preferred Language: Ukrainian Communication Ability: Effective Visual Impairment: Limited Hearing Ability: Normal Warehouse Order Picker Required: No Beliefs That Will Affect Care: None marital status: / Current Living Situation: Alone Current Living Situation Comment: [employer] current occupational status: retired How many Children do You have: 4 Other Information That Helps Us Care for You: No Feels Safe at Home: Yes Childhood Exposure to Second-Hand Smoke: Yes Diet: low salt caffeine: Yes Dental Care, Regularly: No Physical Activity Frequency: Does not Exercise Seatbelt Use: always Sunscreen Use: No Assistive Devices: Cane and Walker Review of Systems Review of Systems: See HPI above Physical Exam Physical Exam: General: no acute distress; non-toxic appearing; well-nourished; cooperative; SpO2 99% on RA HEENT: normocephalic, atraumatic; no scleral icterus; PERRLA; vision and hearing intact; patient demonstrates ability to smile, frown, and raise eyebrows without unilateral deficits; patient reports sensation is intact and symmetric in the face bilaterally assessed at 3 dermatomes Neck: supple; trachea midline Skin: warm, dry without signs of tenting; no cyanosis; no rashes, bruising, lesions, or erythema noted CV: chest wall NTP; RRR; S1/S2 normal; no murmurs/rubs/gallops; pulses intact and symmetric at radial, DP, and PT Lungs: no acute respiratory distress; symmetrical chest wall expansion; clear breath sounds across all lung ge w/o adventitious sounds; no wheezing ABD: Soft, NTP; BS present; no rebound/guarding; no distention MSK: no tics or fasciculations; no edema noted in the LEs b/l, nonerythematous; 5/5 j2ee android developer strength bilaterally; patient demonstrates with difficulties bilaterally Neuro: A&Ox3; normal mood and affect; fluent speech; no focal deficits appreciated; no slurred speech or facial droop; patient reports sensation is intact and symmetric in the upper extremities and lower extremity bilaterally assessed via light touch Results & Data Results & Data Vital Signs (Past 12 Hours) Vital Signs Temp Pulse Pulse Resp BP BP Pulse Ox 09/23/24 13:30 91 H 18 161/95 H 99 09/23/24 12:56 85 09/23/24 11:45 36.8 C 88 21 156/105 H 99 O2 Del Method 09/23/24 13:30 Room Air 09/23/24 12:56 09/23/24 11:45 Room Air Laboratory Results Abnormal lab results 09/23/24 09/23/24 Range/Units 11:48 12:37 RBC 3.80 L (4.20-5.40) M/uL MCV 108.9 H (80.0-100.0) fL MCHC 30.9 L (32.0-36.0) g/dL RDW Std Deviation 58.4 H (36.4-46.3) fL RDW Coeff of Xavier 15.1 H (11.5-14.5) % Lymph # (Auto) 0.92 L (1.20-3.40) K/uL Sodium 135 L (136-145) mmol/L BUN 33 H (6-23) mg/dl Creatinine 1.99 H (0.6-1.2) mg/dl Magnesium 2.5 H (1.7-2.4) mg/dl Alkaline Phosphatase 146 H (34-104) U/L Troponin I High Sens 37.9 H (0-14) pg/ml Total Protein 8.6 H (6.0-8.3) gm/dl Entero/Rhino (PCR) DETECTED A (NotDetected) Diagnostic Findings Chest X-Ray 09/23/24 12:03 XR chest 1V portable CLINICAL HISTORY: HTN COMPARISON STUDY: 08/25/2024 FINDINGS: Stable CABG. Stable cardiomegaly with pulmonary vascular congestion. Stable mild pulmonary interstitial prominence. No consolidation or pleural effusion. No pneumothorax. IMPRESSION: Stable CHF. ACT 112: Negative or not required by law. Electronically signed by: Alvaro Blakely M.D. 09/23/2024 1:13 PM ECG Additional Comments: ECG revealed sinus rhythm with first-degree AV block at 80 bpm; QTc 477; RBBB Code Status & VTE Plan Code Status DNR/DNI VTE Prophylaxis Plan VTE Prophylaxis will be ordered: Yes Supervising Physician Co-Signing Physician Notes DAYNA Supervision Note: I personally saw and examined the patient. I verified all regalado points and agree with DAYNA Donnelly with the following exceptions and/or additions: S-Pt here with malaise, SOB, cough, found ot have Rhino/Enterovirus and subtherapeutic INR due to noncompliance. Not hypoxic, BPs elevated, mild elevation in troponin and mild GERSON. Lisinopril was recently resumed for elevated BPs. She complains of a headache and "I'm not feeling well." History and ROS otherwise reviewed as above. O- Vitals reviewed Gen: [AAOx2, NAD] HEENT: [anicteric sclerae, EOMI] CV: [RRR +2/6 LEMUEL at RUSB, trace edema lets bilat] Pulm: [CTAB no wcr] A/P-84 yo female with complex medical history, here with rhinovirus, malaise, dehydration, GERSON and subtherapeutic INR bridge with heparin gtt and resume coumadin, follow INR hold lisinopril and lasix supportive care-no PNA, no wheezing or need for steroids PT/OT consults placed PG Care Time/CCT Total # of Minutes Spent Total Time Spent with Patient: Total time spent is greater than 50% in coordination of care (as documented) at patient's floor/unit and/or counseling patient: Coding [place] [address] INT INP/OBS CARE 3/75MIN Patient Type Established Medical Decision Making High Complexity Diagnoses Rhinovirus infection B34.8 Subtherapeutic anticoagulation Z51.81; Z79.01 GERSON (acute kidney injury) N17.9
[2024-09-23 14:29] LABS: Adenovirus PCR Not Detected (NotDetected); Bordetella parapertussis PCR Not Detected (NotDetected); Bordetella pertussis PCR Not Detected (NotDetected); Chlamydia pneumoniae PCR Not Detected (NotDetected); Coronavirus 229E PCR Not Detected (NotDetected); Coronavirus CoV-2 (COVID19)PCR Not Detected (NotDetected); Coronavirus HKU1 PCR Not Detected (NotDetected); Coronavirus NL63 PCR Not Detected (NotDetected); Coronavirus OC43PCR Not Detected (NotDetected); Human Metapneumovirus PCR Not Detected (NotDetected); Influenza A PCR Not Detected (NotDetected); Influenza B PCR Not Detected (NotDetected); Mycoplasma pneumoniae PCR Not Detected (NotDetected); Parainfluenza Virus 1 PCR Not Detected (NotDetected); Parainfluenza Virus 2 PCR Not Detected (NotDetected); Parainfluenza Virus 3 PCR Not Detected (NotDetected); Parainfluenza Virus 4 PCR Not Detected (NotDetected); Respiratory Syncytial VirusPCR Not Detected (NotDetected); Rhinovirus/Enterovirus PCR DETECTED (NotDetected)
[2024-09-23 14:43] LABS: Troponin I High Sensitivity 37.9 pg/ml (0-14)
[2024-09-23 15:18] LABS: Partial Thromboplastin Ratio 1.2; Partial Thromboplastin Time 31 Seconds (21-31)
[2024-09-23] MEDS: HEPARIN SOD (PORCINE) 1000 UNIT/ML IV ONE (15:39)
[2024-09-23] MEDS: HEPARIN 25000 UNIT/500 ML D5W 25,000 UNITS/500 ML BAG IV SCH (15:40)
[2024-09-23] MEDS ORDERED: NITROGLYCERIN SL 0.4 MG/TAB TAB SL PRN (16:43)
[2024-09-23] MEDS: hydrALAZINE HCL 20 MG/ML VIAL IV ONE (18:12)
[2024-09-23] MEDS: WARFARIN SOD 2.5 MG TAB PO SCH (18:13)
[2024-09-23] MEDS: Heparin IV Adult Wt-Based Low-Dose w/ INITIAL Bolus Protocol IV STA (20:22)
[2024-09-23] MEDS: PANTOprazole 40 MG TAB PO SCH (20:46)
[2024-09-23] MEDS: ACETAMINOPHEN 325 MG TAB PO PRN (20:47)
[2024-09-23] MEDS: LATANOPROST 0.005% OP SOLN 2.5 ML BTL OPB SCH (20:47)
[2024-09-23 21:44] LABS: Appearance Urine Clear (Clear); Bacteria Urine Automated None Seen (None Seen); Bilirubin Urine Negative (Negative); Blood Urine Negative (Negative); Cast Urine Automated 0-2 /lpf (0-2); Color Urine Yellow; Glucose Urine UA Negative (Negative); Ketones Urine Negative (Negative); Leukocyte Esterase Urine Negative (Negative); Nitrite Urine Negative (Negative); Protein Urine 2+ (Negative); RBC Urine Automated 0-2 /hpf (0-2); Urobilinogen Urine Negative (Negative); WBC Urine Automated 0-5 /hpf (0-5); pH Urine >= 9.0 (4.5-7.5)
--- NOTE | 2024-09-23 22:12 | Electrocardiogram Report ---
Test Reason : Blood Pressure : */* mmHG Vent. Rate : 80 BPM Atrial Rate : 80 BPM P-R Int : 214 ms QRS Dur : 148 ms QT Int : 414 ms P-R-T Axes : 85 45 57 degrees QTcB Int : 477 ms Sinus rhythm with 1st degree A-V block Right bundle branch block Abnormal ECG When compared with ECG of 29-Aug-2024 08:35, No significant change Confirmed by Phi Redman ([id number]) on 09/23/2024 10:12:05 PM Referred By: REFERRED SELF Confirmed By: Phi Redman
[2024-09-23 22:15] LABS: ANTI-Xa, UFH(UnfractionatedHep 0.73 IU/ml (0.3-0.7)
[2024-09-24 05:00] LABS: Basophils # (auto) 0.02 K/uL (0.00-0.20); Basophils % (auto) 0.4 %; Eosinophils # (auto) 0.37 K/uL (0.00-0.50); Eosinophils % (auto) 6.7 %; Hematocrit (blood only) 35.8 % (37.0-47.0); Hemoglobin 11.4 g/dl (12.0-16.0); Immature Granulocytes # (auto) 0.02 K/uL (0.01-0.20); Immature Granulocytes % (auto) 0.4 %; Lymphocytes # (auto) 1.43 K/uL (1.20-3.40); Lymphocytes % (auto) 25.9 %; Mean Corpuscular Hgb Conc 31.8 g/dL (32.0-36.0); Mean Corpuscular Volume 106.9 fL (80.0-100.0); Mean Platelet Volume 9.2 fL (9.4-12.4); Monocytes # (auto) 0.42 K/uL (0.11-0.59); Monocytes % (auto) 7.6 %; Neutrophils # (auto) 3.26 K/uL (1.40-6.50); Platelet Count 211 K/uL (130-400); RDW Coefficient of Variation 14.7 % (11.5-14.5); RDW Standard Deviation 56.5 fL (36.4-46.3); Red Blood Count 3.35 M/uL (4.20-5.40); White Blood Count 5.52 K/ul (4.8-10.8)
[2024-09-24 05:17] LABS: Albumin Globulin Ratio 1.1 (0.9-2); Albumin Level 3.8 gm/dl (3.4-5.0); BUN Creatinine Ratio 15.3 (10-20); Bilirubin,Total 0.7 mg/dl (0.2-1.0); Calcium 9.1 mg/dl (8.6-10.3); Creatinine Clr Calc Pharmacy 18.4 ml/min; Globulin 3.5 gm/dl (2.5-4.0); Magnesium 2.3 mg/dl (1.7-2.4); Potassium 3.7 mmol/L (3.5-5.1); Total Protein 7.3 gm/dl (6.0-8.3)
[2024-09-24 05:22] LABS: ANTI-Xa, UFH(UnfractionatedHep 0.63 IU/ml (0.3-0.7)
[2024-09-24 05:28] LABS: INR 1.1 (0.9-1.1); Prothrombin Time 11.4 Seconds (9.0-12.0)
[2024-09-24] MEDS: LACTATED RINGER'S 1,000 ML IV SCH (09:30)
[2024-09-24] MEDS: NICOTINE 14 MG/24 HR PATCH TD SCH (09:31)
[2024-09-24] MEDS: amLODIPine BESYLATE 5 MG TAB PO SCH (09:32)
[2024-09-24] MEDS: ATORVASTATIN 40 MG TAB PO SCH (09:32)
[2024-09-24] MEDS: FAMOTIDINE 20 MG TAB PO SCH (09:32)
[2024-09-24] MEDS: METOPROLOL SUCC 25MG EXT REL TAB PO SCH (09:32)
[2024-09-24] MEDS: traMADol HCL 50 MG TABLET PO PRN (09:32)
[2024-09-24] MEDS: LIDOCAINE 5% 1 PATCH TD SCH (11:33)
[2024-09-24] MEDS: WARFARIN SOD 2.5 MG TAB PO SCH (16:16)
--- NOTE | 2024-09-24 16:54 | Hospitalist Progress Note ---
Date of Service September 24, 2024 Assessment & Plan (1) Rhinovirus infection: (2) Subtherapeutic anticoagulation: (3) GERSON (acute kidney injury): Plan Patient is an 84-year-old female with past medical history of hypertension, severe , CHF, CKD, aortic valve replacement on Coumadin, history of GI bleed. Presented to the hospital for concerns of weakness, fevers and body aches found to be + for rhino/enterovirus. # Subtherapeutic INR | mechanical aortic valve prosthesis INR 1.0 on arrival - Patient reports she ran out of her medications at home, however 30 day refill from pharmacy 09/06 Continue with heparin drip until INR therapuetic (hx of GI bleeds monitor closely) Patient is unsure who she follows with for anticoagulation; follows with Dr. Kramer and Dr. Beth for valve - Discharged on 08/29 with INR 4.1 (after lokelma) with instructions to hold following day dose and recheck INR. [At this time dose was 5mg daily]. Med list from cardiology visit 09/05 list dose as 5mg SuTuTh and 10mg MoWeFrSa. Discharge instruction from [facility] on 09/08 have dose as 2.5mg dose daily (but had her goal listed as 2-3). INR on [facility] documentation was 1.8 on 09/08. INR through home health was 1.2 on 09/18. Suspect that 2.5mg dose is not enough to keep patient therapeutic, and will increase dose back to 5mg daily. Valve replaced in 1984, meaning that her PT/INR goal is 2.5 - 3.5 AM INR Upon discharge, please send a message to [facility] cardiology (or Dr. Akers) to set up follow-up with with [facility] anticoagulation clinic (for medication distribution and close INR monitoring) #H/o medication non-compliance | FTT | recurrent hospitalizations | Concern for patient safety [place]urrent [place]izations, most recently: (04/04/2024, 04/23/2024, 05/27/2024, and 08/25/2024) with long rehab stays after. Patient has spent a minimal amount of time at home in 2024. Followed by ambulatory CM, María Benton Patient given different stories about her medications - in the TCM documentation 09/10 she mentions that she does not know what she is taking. Love stats that she does not allow HH nursing to fill her med box. 09/11 Ambulatory CM note states she would be willing to let HH nurse fill her container. 09/17 PCP note reports sending meds to [place] for pill packs. Also noting that called and "her medications are in a bag on the floor" 09/23 on admission she states she did not take her pills beause she ran out. On 09/24 patient admitted that she did not know she was supposed to be taking medications in the evening and only takes medications in the morning Also concerns about her ability to manage INR - see ambulatory CM notes, maybe she is checking in daily at home and reports that why she has no supplies, but also meter says it hasnt been checked since 03/03/2024 Family also has reported concerns about Aleida living alone. CHANGE PERSON was consulted for cognitive eval - recommend assistance with higher executive functioning (bills, meds) OT - recommends home with HH, PT eval pending Patient would be an excellent fit for a [facility]. She is very resistant to this idea. Stating she does okay at home. # Entero-/rhinovirus No leukocytosis; afebrile. CXR with stable cardiomegaly and pulmonary vascular congestion; no consolidation or pleural effusions Supportive care: IS, tylenol, mucinex Currently stable on room air #GERSON Mild; creatinine 1.99 on arrival (baseline 1.62) - now worsening to 2.16 Hold lisinopril, Lasix. give 1L LR AM BMP #HFpEF Last echocardiogram on 05/28/2024 revealed LVEF at >70%. CXR with cardiomegaly and pulmonary vascular congestion Daily weights. Strict I&O monitoring Hold Lasix (as above) #Elevated troponin - Troponin 37.9 on arrival and down trending. ECG without ischemic changes. No CP. Suspect elevated in the setting of viral infection Continuous telemetry monitoring for now #Everyday tobacco cigarette smoker 0.5 PPD; continue to encourage smoking cessation Nicotine patch daily #HTN Recent medication changes - lisinopril was stopped last admission due to hyperkalemia. Cardio visit 09/05 rec coninue lasix 20mg MWF, no lisinopril (with hyperkalemia and ). PCP restarted lisinopril on 09/17. Will plan to continue amlodopine and metoprolol. Resuming lasix when GERSON resolves. Suspect salt intake is much higher at home. #GERD - Continue famotidine, PPI #HLD -Continue atorvastatin Disposition: continued inpatient stay VTE PPx: Continue heparin IV while bridging INR Provided update to patient's niece (Love) at bedside on 09/23 regarding labs/imaging/admission status. Called patient's granddaughter (Josseline) on 09/23 and provided update. Admission and Anticipated Discharge Date Admission Date: September 23, 2024 Subjective Татьяна seen lying in bed - reporting headache and neck pain came to the hospital because she felt weak reports she was taking her medication at home but then when asked why her INR was 1.1 says she ran out of coumadin. Pharmacy fills show a 30 day supply given 09/06 denies cough, cold or sinus congestion Review of Systems Review of Systems: All systems reviewed & are unremarkable except as noted in Subjective Physical Exam Physical Exam: General: NAD, VS as above, lying in bed, chronically ill Resp: normal respiratory effort, CV: well perfused, bradycardic + murmur Abd: soft, nontender Neuro: A&O x3, Results & Data Results & Data Vital Signs (Past 12 Hours) Vital Signs Temp Pulse Pulse Resp BP BP Pulse Ox 09/24/24 15:47 98.4 F 90 17 153/83 H 97 09/24/24 14:21 86 09/24/24 11:50 98.4 F 86 17 217/110 H 94 09/24/24 09:38 09/24/24 08:16 98.4 F 86 17 176/93 H 100 09/24/24 07:29 83 O2 Del Method 09/24/24 15:47 Room Air 09/24/24 14:21 09/24/24 11:50 Room Air 09/24/24 09:38 Room Air 09/24/24 08:16 Room Air 09/24/24 07:29 Laboratory Results cbc, chemistry and INR reviewed UA reviewed Diagnostic Findings CXR reviewed PG Care Time/CCT Total # of Minutes Spent Total Time Spent with Patient: Total time spent is greater than 50% in coordination of care (as documented) at patient's floor/unit and/or counseling patient: Coding Level of Care Code 70593 SUB INP/OBS CARE 3/50MIN Diagnoses Rhinovirus infection B34.8 Subtherapeutic anticoagulation Z51.81; Z79.01 GERSON (acute kidney injury) N17.9
[2024-09-24] MEDS ORDERED: guaiFENesin 600 MG TABCR PO PRN (17:11)
[2024-09-24] MEDS: WARFARIN SOD 2.5 MG TAB PO ONE (18:02)
[2024-09-25] MEDS: hydrOXYzine HCl 10 MG TAB PO PRN (04:54)
[2024-09-25 07:12] LABS: Hematocrit (blood only) 39.8 % (37.0-47.0); Hemoglobin 12.9 g/dl (12.0-16.0); Mean Corpuscular Hemoglobin 34.4 pg (25.0-34.0); Mean Corpuscular Hgb Conc 32.4 g/dL (32.0-36.0); Mean Corpuscular Volume 106.1 fL (80.0-100.0); Mean Platelet Volume 9.1 fL (9.4-12.4); Platelet Count 227 K/uL (130-400); RDW Coefficient of Variation 15.1 % (11.5-14.5); RDW Standard Deviation 57.6 fL (36.4-46.3); Red Blood Count 3.75 M/uL (4.20-5.40); White Blood Count 5.49 K/ul (4.8-10.8)
[2024-09-25 07:16] LABS: ANTI-Xa, UFH(UnfractionatedHep 0.58 IU/ml (0.3-0.7)
[2024-09-25 07:28] LABS: INR 1.1 (0.9-1.1); Prothrombin Time 11.4 Seconds (9.0-12.0)
[2024-09-25 07:33] LABS: BUN Creatinine Ratio 13.3 (10-20); Calcium 9.6 mg/dl (8.6-10.3); Creatinine Clr Calc Pharmacy 20.1 ml/min; Potassium 3.9 mmol/L (3.5-5.1)
[2024-09-25] MEDS: ONDANSETRON INJ 2 MG/ML 2 ML VIAL IV PRN (07:46)
--- NOTE | 2024-09-25 11:39 | Hospitalist Progress Note ---
Date of Service September 25, 2024 Assessment & Plan (1) Rhinovirus infection: (2) Subtherapeutic anticoagulation: (3) GERSON (acute kidney injury): Plan Patient is an 84-year-old female with past medical history of hypertension, severe , CHF, CKD, aortic valve replacement on Coumadin, history of GI bleed. Presented to the hospital for concerns of weakness, fevers and body aches found to be + for rhino/enterovirus. # Subtherapeutic INR | mechanical aortic valve prosthesis INR 1.0 on arrival - Patient reports she ran out of her medications at home, however 30 day refill from pharmacy 09/06 Continue with heparin drip until INR therapuetic (hx of GI bleeds monitor closely) Patient is unsure who she follows with for anticoagulation; follows with Dr. Kramer and Dr. Beth for valve - Discharged on 08/29 with INR 4.1 (after lokelma) with instructions to hold following day dose and recheck INR. [At this time dose was 5mg daily]. Med list from cardiology visit 09/05 list dose as 5mg SuTuTh and 10mg MoWeFrSa. Discharge instruction from [facility] on 09/08 have dose as 2.5mg dose daily (but had her goal listed as 2-3). INR on [facility] documentation was 1.8 on 09/08. INR through home health was 1.2 on 09/18. Suspect that 2.5mg dose is not enough to keep patient therapeutic, and will increase dose back to 5mg daily. My supervising physician, Dr. Camargo ordered for dosing to be increased to 7.5mg daily on 09/25 - aware of hx of GI bleeds while briding with Coumadin previously Valve replaced in 1984, meaning that her PT/INR goal is 2.5 - 3.5 AM INR Upon discharge, please send a message to [facility] cardiology (or Dr. Akers) to set up follow-up with with [facility] anticoagulation clinic (for medication distribution and close INR monitoring) #H/o medication non-compliance | FTT | recurrent hospitalizations | Concern for patient safety Rec[place] hospitalizations, most recently: (04/04/2024, 04/23/2024, 05/27/2024, and 08/25/2024) with long rehab stays after. Patient has spent a minimal amount of time at home in 2024. Followed by ambulatory CM, María Benton Patient given different stories about her medications - in the TCM documentation 09/10 she mentions that she does not know what she is taking. Love stats that she does not allow HH nursing to fill her med box. 09/11 Ambulatory CM note states she would be willing to let HH nurse fill her container. 09/17 PCP note reports sending meds to [place] for pill packs. Also noting that HH called and "her medications are in a bag on the floor" 09/23 on admission she states she did not take her pills beause she ran out. On 09/24 patient admitted that she did not know she was supposed to be taking medications in the evening and only takes medications in the morning Also concerns about her ability to manage INR - see ambulatory CM notes, maybe she is checking in daily at home and reports that why she has no supplies, but also meter says it hasnt been checked since 03/03/2024 Family also has reported concerns about Aleida living alone. But understands they cant force her to go anywhere. Reports she does get meals on wheels and family will have groceries delivered for her, but she does not eat much. OPERATIONS DISPATCHER was consulted for cognitive eval - recommend assistance with higher executive functioning (bills, meds) OT - recommends home with HH, PT eval pending Patient would be an excellent fit for a [facility]. She is very resistant to this idea. Stating she does okay at home. If patient is going to go home, recommend Office of Aging involvement. # Entero-/rhinovirus No leukocytosis; afebrile. CXR with stable cardiomegaly and pulmonary vascular congestion; no consolidation or pleural effusions Supportive care: IS, tylenol, mucinex Currently stable on room air #GERSON Mild; creatinine 1.99 on arrival (baseline 1.62) --> 2.16 and given 1L LR --> 1.95 Encourage PO fluids. D/c lisinopril. AM BMP #HFpEF Last echocardiogram on 05/28/2024 revealed LVEF at >70%. CXR with cardiomegaly and pulmonary vascular congestion Daily weights. Strict I&O monitoring Hold Lasix (as above) #Elevated troponin - Troponin 37.9 on arrival and down trending. ECG without ischemic changes. No CP. Suspect elevated in the setting of viral infection Continuous telemetry monitoring for now #Everyday tobacco cigarette smoker 0.5 PPD; continue to encourage smoking cessation Nicotine patch daily #HTN Recent medication changes - lisinopril was stopped last admission due to hyperkalemia. Cardio visit 09/05 rec coninue lasix 20mg MWF, no lisinopril (with hyperkalemia and ). PCP restarted lisinopril on 09/17. Will plan to continue amlodopine and metoprolol. Resuming lasix when GERSON resolves. Suspect salt intake is much higher at home. #GERD - Continue famotidine, PPI #HLD -Continue atorvastatin Disposition: continued inpatient stay VTE PPx: Continue heparin IV while bridging INR Provided update to patient's niece (Love) and granddaughter (Josseline) on 09/23 and provided update. Josseline updated by phone 09/25 Admission and Anticipated Discharge Date Admission Date: September 23, 2024 Supervising Physician Co-Signing Physician Notes The patient was not seen by me. The chart was reviewed. Case discussed with DAYNA Tucker. Agree with assessment and plan Subjective Seen laying in bed, reports feeling better yesterday reports decreased appetite reports minimal non productive cough moving bowels Tele - SR IVCD 80-90s Review of Systems Review of Systems: All systems reviewed & are unremarkable except as noted in Subjective Physical Exam Physical Exam: General: NAD, VS as above, lying in bed, chronically ill Resp: normal respiratory effort, clear to auscultation CV: well perfused, bradycardic + murmur Abd: soft, nontender Neuro: A&O x3, Results & Data Results & Data Vital Signs (Past 12 Hours) Vital Signs Temp Pulse Pulse Resp BP Pulse Ox O2 Del Method 09/25/24 08:19 98.2 F 82 18 166/81 H 97 Room Air 09/25/24 05:45 83 09/25/24 03:41 98.4 F 95 H 18 169/87 H 97 Room Air Laboratory Results cbc, chemistry and INR reviewed PG Care Time/CCT Total # of Minutes Spent Total Time Spent with Patient: Total time spent is greater than 50% in coordination of care (as documented) at patient's floor/unit and/or counseling patient: Coding Level of Care Code 12266 SUB INP/OBS CARE 3/50MIN Diagnoses Rhinovirus infection B34.8 Subtherapeutic anticoagulation Z51.81; Z79.01 GERSON (acute kidney injury) N17.9
[2024-09-25] MEDS ORDERED: WARFARIN SOD 5 MG TAB PO SCH (16:00)
[2024-09-25] MEDS: WARFARIN SOD 7.5 MG TAB PO SCH (16:34)
[2024-09-26] MEDS: MAGNESIUM SULFATE / D5W 1 GM/100 ML BAG IV ONE (00:28)
[2024-09-26] MEDS: diphenhydrAMINE 50 MG/ML VIAL IV STA (00:28)
[2024-09-26 06:46] LABS: Basophils # (auto) 0.03 K/uL (0.00-0.20); Basophils % (auto) 0.6 %; Eosinophils # (auto) 0.28 K/uL (0.00-0.50); Eosinophils % (auto) 5.6 %; Hematocrit (blood only) 39.1 % (37.0-47.0); Hemoglobin 12.4 g/dl (12.0-16.0); Immature Granulocytes # (auto) 0.02 K/uL (0.01-0.20); Immature Granulocytes % (auto) 0.4 %; Lymphocytes # (auto) 1.33 K/uL (1.20-3.40); Lymphocytes % (auto) 26.8 %; Mean Corpuscular Hemoglobin 33.9 pg (25.0-34.0); Mean Corpuscular Hgb Conc 31.7 g/dL (32.0-36.0); Mean Corpuscular Volume 106.8 fL (80.0-100.0); Mean Platelet Volume 9.4 fL (9.4-12.4); Monocytes # (auto) 0.62 K/uL (0.11-0.59); Monocytes % (auto) 12.5 %; Neutrophils # (auto) 2.69 K/uL (1.40-6.50); Neutrophils % (auto) 54.1 %; Platelet Count 210 K/uL (130-400); RDW Coefficient of Variation 15.2 % (11.5-14.5); RDW Standard Deviation 57.6 fL (36.4-46.3); Red Blood Count 3.66 M/uL (4.20-5.40); White Blood Count 4.97 K/ul (4.8-10.8)
[2024-09-26 07:02] LABS: BUN Creatinine Ratio 13.6 (10-20); Calcium 9.5 mg/dl (8.6-10.3); Creatinine Clr Calc Pharmacy 19.7 ml/min; Potassium 3.8 mmol/L (3.5-5.1)
[2024-09-26 07:14] LABS: INR 1.2 (0.9-1.1); Prothrombin Time 12.7 Seconds (9.0-12.0)
[2024-09-26] MEDS: GABAPENTIN 100 MG CAP PO PRN (08:28)
[2024-09-26 10:29] LABS: ANTI-Xa, UFH(UnfractionatedHep 0.66 IU/ml (0.3-0.7)
--- NOTE | 2024-09-26 16:56 | Hospitalist Progress Note ---
Date of Service September 26, 2024 Assessment & Plan (1) Rhinovirus infection: (2) Subtherapeutic anticoagulation: (3) GERSON (acute kidney injury): Plan Patient is an 84-year-old female with past medical history of hypertension, severe , CHF, CKD, aortic valve replacement on Coumadin, history of GI bleed. Presented to the hospital for concerns of weakness, fevers and body aches found to be + for rhino/enterovirus. # Subtherapeutic INR | mechanical aortic valve prosthesis - Valve replaced in 1984, meaning that her PT/INR goal is 2.5 - 3.5 - INR 1.0 on arrival - Patient reports she ran out of her medications at home, however 30 day refill from pharmacy 09/06 - Continue with heparin drip until INR therapuetic (hx of GI bleeds monitor closely) - Patient is unsure who she follows with for anticoagulation; follows with Dr. Kramer and Dr. Beth for valve - Discharged on 08/29 with INR 4.1 (after lokelma) with instructions to hold following day dose and recheck INR. [At this time dose was 5mg daily]. Med list from cardiology visit 09/05 list dose as 5mg SuTuTh and 10mg MoWeFrSa. Discharge instruction from [facility] on 09/08 have dose as 2.5mg dose daily (but had her goal listed as 2-3). INR on [facility] documentation was 1.8 on 09/08. INR through home health was 1.2 on 09/18. - Suspect that 2.5mg dose is not enough to keep patient therapeutic, and will increase dose back to 5mg daily. Dr. Camargo ordered for dosing to be increased to 7.5mg daily on 09/25 - aware of hx of GI bleeds while bridging with Coumadin previously - INR remains subtherapeutic - currently 1.2 - continue warfarin 7.5 mg daily - AM INR - Upon discharge, please send a message to [facility] cardiology (or Dr. Akers) to set up follow-up with with [facility] anticoagulation clinic (for medication distribution and close INR monitoring) #H/o medication non-compliance | FTT | recurrent hospitalizations | Concern for patient safety - [place], most recently: (04/04/2024, 04/23/2024, 05/27/2024, and 08/25/2024) with long rehab stays after. Patient has spent a minimal amount of time at home in 2024. - Followed by ambulatory CM, María Benton - Patient given different stories about her medications - in the TCM documentation 09/10 she mentions that she does not know what she is taking. Love stats that she does not allow HH nursing to fill her med box. 09/11 Ambulatory - CM note states she would be willing to let HH nurse fill her container. 09/17 PCP note reports sending meds to [place] for pill packs. Also noting that HH called and "her medications are in a bag on the floor" 09/23 on admission she states she did not take her pills beause she ran out. On 09/24 patient admitted that she did not know she was supposed to be taking medications in the evening and only takes medications in the morning - Also concerns about her ability to manage INR - see ambulatory CM notes, maybe she is checking in daily at home and reports that why she has no supplies, but also meter says it hasnt been checked since 03/03/2024 - Family also has reported concerns about Aleida living alone. But understands they cant force her to go anywhere. Reports she does get meals on wheels and family will have groceries delivered for her, but she does not eat much. - AV SPECIALIST was consulted for cognitive eval - recommend assistance with higher executive functioning (billmikey, michel) - PT/OT - recommends home with HH - Patient would be an excellent fit for a [facility]. She is very resistant to this idea. Stating she does okay at home. - If patient is going to go home, recommend Office of Aging involvement. # Entero-/rhinovirus - No leukocytosis; afebrile. CXR with stable cardiomegaly and pulmonary vascular congestion; no consolidation or pleural effusions - Supportive care: IS, tylenol, mucinex - Currently stable on room air #GERSON - Mild; creatinine 1.99 on arrival (baseline 1.62) which increased to 2.16, given 1L LR which improved to 1.95 - Encourage PO fluids - D/c lisinopril - AM BMP #HTN - Recent medication changes - lisinopril was stopped last admission due to hyperkalemia. Cardio visit 09/05 rec continue Lasix 20mg MWF, no lisinopril (with hyperkalemia and ). PCP restarted lisinopril on 09/17. - Will plan to continue amlodipine and metoprolol. Resuming Lasix when GERSON resolves. - Suspect salt intake is much higher at home #HFpEF - Last echocardiogram on 05/28/2024 revealed LVEF at >70%. CXR with cardiomegaly and pulmonary vascular congestion - Daily weights. Strict I&O monitoring - Hold Lasix #Elevated troponin - Troponin 37.9 on arrival and down trended. ECG without ischemic changes. No CP. Suspect elevated in the setting of viral infection - Continuous telemetry monitoring for now #Everyday tobacco cigarette smoker - 0.5 PPD; continue to encourage smoking cessation - Nicotine patch daily #GERD - Continue famotidine, PPI #HLD -Continue atorvastatin Disposition: continued inpatient stay VTE PPx: Continue heparin IV while bridging INR Provided update to patient's niece (Love) and granddaughter (Josseline) on 09/23 and provided update. Josseline updated by phone 09/25 Admission and Anticipated Discharge Date Admission Date: September 23, 2024 Supervising Physician Co-Signing Physician Notes The patient was not seen by me. The chart was reviewed. Case discussed with DAYNA Mosley. Agree with assessment and plan Subjective Patient seen and evaluated at bedside. She reports feeling weak and tired overall. She also reports she has a headache, offered Tylenol which she accepted. She denies any respiratory symptoms including shortness of breath, dy spnea, cough, PND. She reports that she is eating better here than at home. She reports she is sleeping well overnight. No additional complaints or concerns at this time. Physical Exam Physical Exam: General: No acute distress, nondiaphoretic. Frail elderly female. Cardiac: Regular rate and rhythm. Systolic murmur noted. Pulm: Clear to auscultation bilaterally without wheezes, rales or rhonchi. Normal respiratory effort. 96% on room air. Abdominal: Soft, nontender, nondistended. Bowel sounds present. Neuro: A&O x3. No focal neurological deficits. Results & Data Results & Data Vital Signs (Past 12 Hours) Vital Signs Temp Pulse Pulse Resp BP Pulse Ox O2 Del Method 09/26/24 16:00 98.2 F 79 16 150/83 H 96 Room Air 09/26/24 13:45 80 09/26/24 11:19 98.2 F 86 18 160/91 H 97 Room Air 09/26/24 10:22 81 09/26/24 07:47 98.1 F 88 18 171/82 H 98 Room Air 09/26/24 07:36 Room Air 09/26/24 04:59 162/89 H Laboratory Results Reviewed CBC with differential Reviewed coags Reviewed BMP PG Care Time/CCT Total # of Minutes Spent Total Time Spent with Patient: Total time spent is greater than 50% in coordination of care (as documented) at patient's floor/unit and/or counseling patient: Coding Level of Care Code 00590 SUB INP/OBS CARE 2/35MIN Diagnoses Rhinovirus infection B34.8 Subtherapeutic anticoagulation Z51.81; Z79.01 GERSON (acute kidney injury) N17.9
[2024-09-27 07:12] LABS: Basophils # (auto) 0.02 K/uL (0.00-0.20); Basophils % (auto) 0.4 %; Eosinophils # (auto) 0.33 K/uL (0.00-0.50); Eosinophils % (auto) 5.9 %; Hematocrit (blood only) 40.3 % (37.0-47.0); Hemoglobin 12.6 g/dl (12.0-16.0); Immature Granulocytes # (auto) 0.03 K/uL (0.01-0.20); Immature Granulocytes % (auto) 0.5 %; Lymphocytes # (auto) 1.21 K/uL (1.20-3.40); Lymphocytes % (auto) 21.6 %; Mean Corpuscular Hemoglobin 33.5 pg (25.0-34.0); Mean Corpuscular Hgb Conc 31.3 g/dL (32.0-36.0); Mean Corpuscular Volume 107.2 fL (80.0-100.0); Mean Platelet Volume 9.3 fL (9.4-12.4); Monocytes # (auto) 0.62 K/uL (0.11-0.59); Monocytes % (auto) 11.1 %; Neutrophils # (auto) 3.39 K/uL (1.40-6.50); Neutrophils % (auto) 60.5 %; Platelet Count 203 K/uL (130-400); RDW Coefficient of Variation 15.4 % (11.5-14.5); RDW Standard Deviation 60.7 fL (36.4-46.3); Red Blood Count 3.76 M/uL (4.20-5.40)
[2024-09-27 07:19] LABS: INR 1.7 (0.9-1.1); Prothrombin Time 17.2 Seconds (9.0-12.0)
[2024-09-27 08:13] LABS: Potassium 4.3 mmol/L (3.5-5.1)
[2024-09-27 08:18] LABS: BUN Creatinine Ratio 12.8 (10-20); Creatinine Clr Calc Pharmacy 16.1 ml/min
[2024-09-27 08:51] LABS: ANTI-Xa, UFH(UnfractionatedHep 0.71 IU/ml (0.3-0.7)
[2024-09-27] MEDS: LACTATED RINGER'S 1,000 ML IV SCH (09:43)
--- NOTE | 2024-09-27 11:55 | Hospitalist Progress Note ---
Date of Service September 27, 2024 Assessment & Plan (1) Rhinovirus infection: (2) Subtherapeutic anticoagulation: (3) GERSON (acute kidney injury): Plan Patient is an 84-year-old female with past medical history of hypertension, severe , CHF, CKD, aortic valve replacement on Coumadin, history of GI bleed. Presented to the hospital for concerns of weakness, fevers and body aches found to be + for rhino/enterovirus. # Subtherapeutic INR | mechanical aortic valve prosthesis - Valve replaced in 1984, meaning that her PT/INR goal is 2.5 - 3.5 - INR 1.0 on arrival - Patient reports she ran out of her medications at home, however 30 day refill from pharmacy 09/06 - Continue with heparin drip until INR therapeutic (hx of GI bleeds monitor closely). Heparin Anti-Xa high at 0.71 - reduced by 50 units per protocol 09/27 - Patient is unsure who she follows with for anticoagulation; follows with Dr. Kramer and Dr. Beth for valve - Discharged on 08/29 with INR 4.1 (after lokelma) with instructions to hold following day dose and recheck INR. [At this time dose was 5mg daily]. Med list from cardiology visit 09/05 list dose as 5mg SuTuTh and 10mg MoWeFrSa. Discharge instruction from [facility] on 09/08 have dose as 2.5mg dose daily (but had her goal listed as 2-3). INR on [facility] documentation was 1.8 on 09/08. INR through home health was 1.2 on 09/18. - Suspect that 2.5mg dose is not enough to keep patient therapeutic, and will increase dose back to 5mg daily. Dr. Camargo ordered for dosing to be increased to 7.5mg daily on 09/25 - aware of hx of GI bleeds while bridging with Coumadin previously - INR remains subtherapeutic - currently 1.7 - continue warfarin 7.5 mg daily - AM INR - Upon discharge, please send a message to [facility] cardiology (or Dr. Akers) to set up follow-up with with [facility] anticoagulation clinic (for medication distribution and close INR monitoring) #H/o medication non-compliance | FTT | recurrent hospitalizations | Concern for patient safety - [place], most recently: (04/04/2024, 04/23/2024, 05/27/2024, and 08/25/2024) with long rehab stays after. Patient has spent a minimal amount of time at home in 2024. - Followed by ambulatory CM, María Benton - Patient given different stories about her medications - in the TCM documentation 09/10 she mentions that she does not know what she is taking. Love stats that she does not allow HH nursing to fill her med box. 09/11 Ambulatory - CM note states she would be willing to let HH nurse fill her container. 09/17 PCP note reports sending meds to [place] for pill packs. Also noting that HH called and "her medications are in a bag on the floor" 09/23 on admission she states she did not take her pills beause she ran out. On 09/24 patient admitted that she did not know she was supposed to be taking medications in the evening and only takes medications in the morning - Also concerns about her ability to manage INR - see ambulatory CM notes, maybe she is checking in daily at home and reports that why she has no supplies, but also meter says it hasnt been checked since 03/03/2024 - Family also has reported concerns about Aleida living alone. But understands they cant force her to go anywhere. Reports she does get meals on wheels and family will have groceries delivered for her, but she does not eat much. - UR COORDINATOR was consulted for cognitive eval - recommend assistance with higher executive functioning (billmikey, joses) - PT/OT - recommends home with HH - Patient would be an excellent fit for a [facility]. She is very resistant to this idea. Stating she does okay at home. - If patient is going to go home, recommend Office of Aging involvement. # Entero-/rhinovirus - No leukocytosis; afebrile. CXR with stable cardiomegaly and pulmonary vascular congestion; no consolidation or pleural effusions - Supportive care: IS, tylenol, mucinex - Currently stable on room air #GERSON - baseline Cr ~1.6 - Mild; creatinine 1.99 on arrival, which increased to 2.16, given 1L LR which improved to 1.95. Now again elevated at 2.42 (suspect secondary to poor oral intake), will give 1 L LR now - Encourage PO fluids - D/c lisinopril - AM BMP #HTN - Recent medication changes - lisinopril was stopped last admission due to hyperkalemia. Cardio visit 09/05 rec continue Lasix 20mg MWF, no lisinopril (with hyperkalemia and ). PCP restarted lisinopril on 09/17. - Will plan to continue amlodipine and metoprolol. Resuming Lasix when GERSON resolves. - Suspect salt intake is much higher at home #HFpEF - Last echocardiogram on 05/28/2024 revealed LVEF at >70%. CXR with cardiomegaly and pulmonary vascular congestion - Daily weights. Strict I&O monitoring - Hold Lasix #Elevated troponin - Troponin 37.9 on arrival and down trended. ECG without ischemic changes. No CP. Suspect elevated in the setting of viral infection - Continuous telemetry monitoring for now #Everyday tobacco cigarette smoker - 0.5 PPD; continue to encourage smoking cessation - Nicotine patch daily #GERD - Continue famotidine, PPI #HLD -Continue atorvastatin Disposition: continued inpatient stay VTE PPx: Continue heparin IV while bridging INR Ordered Voltaren gel for right knee Reduced heparin dosing Ordered home eye drops Admission and Anticipated Discharge Date Admission Date: September 23, 2024 Supervising Physician Co-Signing Physician Notes The patient was not seen by me. The chart was reviewed. Case discussed with DAYNA Marrero. Agree with assessment and plan Subjective Patient seen and evaluated in bedside chair. She reports having her best night of sleep since being in the hospital, noting she slept soundly the whole night. She reports a headache for which she just received Tylenol. She also notes blurry vision in her right eye that started when she woke up. She initially attributed this to "sleeping hard" overnight. However upon further questioning, it was revealed that she uses multiple medicated eye drops daily that she has not had here. Will send those down to pharmacy to be labeled and begin using them now. She denies any unilateral deficits, lightheadedness, or dizziness. Her neuro exam was non-lateralizing and non-focal. She does report right knee p ain with flexion, likely secondary to arthritis. She states she uses topical arthritis cream at home for this. We discussed using Voltaren gel on her knee. When asked about her oral intake, she reports her appetite is better than when she is home but she acknowledges she could "probably drink more fluids." She denies any additional complaints or concerns at this time. Physical Exam Physical Exam: General: No acute distress, nondiaphoretic. Frail elderly female. Cardiac: Regular rate and rhythm. Systolic murmur noted. Pulm: Clear to auscultation bilaterally without wheezes, rales or rhonchi. Normal respiratory effort. 96% on room air. Abdominal: Soft, nontender, nondistended. Bowel sounds present. Neuro: A&O x3. Non-lateralizing neuro exam. No focal neurological deficits. Results & Data Results & Data Vital Signs (Past 12 Hours) Vital Signs Temp Pulse Pulse Resp BP Pulse Ox O2 Del Method 09/27/24 11:33 98.1 F 86 20 149/98 H 96 Room Air 09/27/24 09:34 80 09/27/24 08:04 98.4 F 86 18 163/86 H 96 Room Air 09/27/24 07:24 Room Air 09/27/24 03:03 98.8 F 79 17 145/85 H 95 Room Air Laboratory Results Reviewed CBC with differential Reviewed coags Reviewed BMP PG Care Time/CCT Total # of Minutes Spent Total Time Spent with Patient: Total time spent is greater than 50% in coordination of care (as documented) at patient's floor/unit and/or counseling patient: Coding Level of Care Code 84438 SUB INP/OBS CARE 3/50MIN Diagnoses Rhinovirus infection B34.8 Subtherapeutic anticoagulation Z51.81; Z79.01 GERSON (acute kidney injury) N17.9
[2024-09-27] MEDS: BRIMONIDINE TARTRATE 0.2% 5ML OPB SCH (15:19)
[2024-09-27 16:42] LABS: ANTI-Xa, UFH(UnfractionatedHep 0.62 IU/ml (0.3-0.7)
[2024-09-27] MEDS: DORZOLAMIDE HCL 2% OPH SOLN 10 ML BTL OPB SCH (20:38)
[2024-09-28 06:32] LABS: Basophils # (auto) 0.03 K/uL (0.00-0.20); Basophils % (auto) 0.6 %; Eosinophils # (auto) 0.27 K/uL (0.00-0.50); Eosinophils % (auto) 5.2 %; Hemoglobin 11.8 g/dl (12.0-16.0); Immature Granulocytes # (auto) 0.02 K/uL (0.01-0.20); Immature Granulocytes % (auto) 0.4 %; Lymphocytes # (auto) 1.14 K/uL (1.20-3.40); Mean Corpuscular Hemoglobin 34.1 pg (25.0-34.0); Mean Corpuscular Hgb Conc 31.9 g/dL (32.0-36.0); Mean Corpuscular Volume 106.9 fL (80.0-100.0); Mean Platelet Volume 9.6 fL (9.4-12.4); Monocytes # (auto) 0.63 K/uL (0.11-0.59); Monocytes % (auto) 12.2 %; Neutrophils # (auto) 3.09 K/uL (1.40-6.50); Neutrophils % (auto) 59.6 %; Platelet Count 203 K/uL (130-400); RDW Coefficient of Variation 15.3 % (11.5-14.5); RDW Standard Deviation 60.5 fL (36.4-46.3); Red Blood Count 3.46 M/uL (4.20-5.40); White Blood Count 5.18 K/ul (4.8-10.8)
[2024-09-28 06:59] LABS: ANTI-Xa, UFH(UnfractionatedHep 0.53 IU/ml (0.3-0.7)
[2024-09-28 07:02] LABS: INR 2.4 (0.9-1.1)
[2024-09-28 07:05] LABS: BUN Creatinine Ratio 16.1 (10-20); Calcium 8.9 mg/dl (8.6-10.3); Creatinine Clr Calc Pharmacy 15.9 ml/min; Potassium 4.2 mmol/L (3.5-5.1)
[2024-09-28] MEDS: DICLOFENAC SOD 1% GEL 100 GM TUBE EXT PRN (08:16)
--- NOTE | 2024-09-28 12:14 | Hospitalist Progress Note ---
Date of Service September 28, 2024 Assessment & Plan (1) Rhinovirus infection: (2) Subtherapeutic anticoagulation: (3) GERSON (acute kidney injury): Plan Patient is an 84-year-old female with past medical history of hypertension, severe , CHF, CKD, aortic valve replacement on Coumadin, history of GI bleed. Presented to the hospital for concerns of weakness, fevers and body aches found to be + for rhino/enterovirus. # Subtherapeutic INR | mechanical aortic valve prosthesis - Valve replaced in 1984, meaning that her PT/INR goal is 2.5 - 3.5 - INR 1.0 on arrival - Patient reports she ran out of her medications at home, however 30 day refill from pharmacy 09/06 - Continue with heparin drip until INR therapeutic (hx of GI bleeds monitor closely). Heparin Anti-Xa high at 0.71 - reduced by 50 units per protocol 09/27 - Patient is unsure who she follows with for anticoagulation; follows with Dr. Kramer and Dr. Beth for valve - Discharged on 08/29 with INR 4.1 (after lokelma) with instructions to hold following day dose and recheck INR. [At this time dose was 5mg daily]. Med list from cardiology visit 09/05 list dose as 5mg SuTuTh and 10mg MoWeFrSa. Discharge instruction from [facility] on 09/08 have dose as 2.5mg dose daily (but had her goal listed as 2-3). [facility] was 1.8 on 09/08. INR through home health was 1.2 on 09/18. - Suspect that 2.5mg dose is not enough to keep patient therapeutic, and will increase dose back to 5mg daily - aware of hx of GI bleeds, cautious while bridging heparin/warfarin - INR is now close to therapeutic range at 2.4 on 09/28 Heparin discontinued on 09/28 Reduce dose of warfarin from 7.5 mg -> 5.0 mg Continue to trend PT/INR - Upon discharge, please send a message to [facility] cardiology (or Dr. Akers) to set up follow-up with with [facility] anticoagulation clinic (for medication distribution and close INR monitoring) #H/o medication non-compliance | FTT | recurrent hospitalizations | Concern for patient safety - Recurrent [place] hospitalizations, most recently: (04/04/2024, 04/23/2024, 05/27/2024, and 08/25/2024) with long rehab stays after. Patient has spent a minimal amount of time at home in 2024. - Followed by ambulatory CM, María Benton - Patient given different stories about her medications - in the TCM documentation 09/10 she mentions that she does not know what she is taking. Love stats that she does not allow HH nursing to fill her med box. 09/11 Ambulatory - CM note states she would be willing to let HH nurse fill her container. 09/17 PCP note reports sending meds to [place] for pill packs. Also noting that HH called and "her medications are in a bag on the floor" 09/23 on admission she states she did not take her pills beause she ran out. On 09/24 patient admitted that she did not know she was supposed to be taking medications in the evening and only takes medications in the morning - Also concerns about her ability to manage INR - see ambulatory CM notes, maybe she is checking in daily at home and reports that why she has no supplies, but also meter says it hasnt been checked since 03/03/2024 - Family also has reported concerns about Aleida living alone. But understands they cant force her to go anywhere. Reports she does get meals on wheels and family will have groceries delivered for her, but she does not eat much. - PLASTIC WELDER was consulted for cognitive eval - recommend assistance with higher exec utive functioning (bills, meds) - PT/OT - recommends home with HH; new referral made to [facility] for resumption of care at time of discharge - Patient would be an excellent fit for a [facility]. She is very resistant to this idea. Stating she does okay at home. - If patient is going to go home, recommend Office of Aging involvement. # Entero-/rhinovirus - No leukocytosis; afebrile. CXR with stable cardiomegaly and pulmonary vascular congestion; no consolidation or pleural effusions - Supportive care: IS, tylenol, mucinex - Currently stable on room air #GERSON - baseline Cr ~1.6 - Mild; creatinine 1.99 on arrival, which increased to 2.16, given 1L LR which improved to 1.95. Now again elevated at 2.42 s/p lactated ringer 1L (suspect secondary to poor oral intake) - Encourage PO fluids - D/c lisinopril - Trend BMP #HTN - Recent medication changes - lisinopril was stopped last admission due to hyperkalemia. Cardio visit 09/05 rec continue Lasix 20mg MWF, no lisinopril (with hyperkalemia and ). PCP restarted lisinopril on 09/17. - Will plan to continue amlodipine and metoprolol. Resuming Lasix when GERSON resolves. - Suspect salt intake is much higher at home #HFpEF - Last echocardiogram on 05/28/2024 revealed LVEF at >70%. CXR with cardiomegaly and pulmonary vascular congestion - Daily weights. Strict I&O monitoring - Hold Lasix in the setting of GERSON #Elevated troponin - Troponin 37.9 on arrival and down trended. ECG without ischemic changes. No CP. Suspect elevated in the setting of viral infection - Continuous telemetry monitoring for now #Everyday tobacco cigarette smoker - 0.5 PPD; continue to encourage smoking cessation - Nicotine patch daily #GERD - Continue famotidine, PPI #HLD -Continue atorvastatin Disposition: continued inpatient stay VTE PPx: Heparin discontinued on 09/28; continue warfarin Admission and Anticipated Discharge Date Admission Date: September 23, 2024 Supervising Physician Co-Signing Physician Notes The patient was not seen by me. The chart was reviewed. Case discussed with DAYNA Monte. Agree with assessment and plan Subjective Overall, Mrs. Ty is still feeling unwell. She is unsure if she had fevers overnight, but is still having body aches, blurry vision, and headaches. She reports she has not been eating or drinking much because "nothing tastes right". She was also feeling lightheaded when she got up to use the restroom last night. She denies blood in her stool or dark tarry stool. In regard to respiratory symptoms, she reports no SOB at rest or with exertion, and while she still has a "hacking cough" it is beginning to resolve. Patient was again asked if she would be open to discussing going to a half-way facility upon discharge, and she declined. ROS: Patient endorses fatigue, body aches, nausea, headache, blurry vision, and hacking dry cough. Patient denies chills, night sweats, chest pain, SOB, pleuritic CP, vomiting, diarrhea, changes in her urinary or bowel habits, melena, or bright red blood in the urine or stool. Review of Systems Review of Systems: See HPI above Physical Exam Physical Exam: General: no acute distress; non-toxic appearing; frail appearing; cooperative; SpO2 96% on RA HEENT: normocephalic, atraumatic; no scleral icterus; PERRLA; vision and hearing intact Neck: supple; trachea midline Skin: warm, dry without signs of tenting; no cyanosis; no rashes, bruising, lesions, or erythema noted CV: chest wall NTP; RRR; S1/S2 normal; no murmurs/rubs/gallops; pulses intact and symmetric at radial, DP, and PT Lungs: no acute respiratory distress; symmetrical chest wall expansion; clear breath sounds across all lung ge w/o adventitious sounds; no wheezing ABD: Soft, NTP; BS present; no rebound/guarding; no distention MSK: no tics or fasciculations; however, patient notes that her joints feel achy, and active/passive ROM reproduces pain in the elbows bilaterally; no edema noted in the LEs b/l, nonerythematous; 5/5 clinical engineering manager strength bilaterally Neuro: A&Ox3; normal mood and affect; fluent speech; no focal deficits appreciated; patient reports sensation is intact and symmetric in the upper extremities and lower extremity bilaterally assessed via light touch Results & Data Results & Data Vital Signs (Past 12 Hours) Vital Signs Temp Pulse Pulse Resp BP BP Pulse Ox 09/28/24 11:52 36.9 C 82 12 163/86 H 96 09/28/24 09:52 87 09/28/24 08:36 36.9 C 98 H 12 176/94 H 96 09/28/24 07:51 09/28/24 03:05 36.9 C 81 18 135/85 98 O2 Del Method 09/28/24 11:52 Room Air 09/28/24 09:52 09/28/24 08:36 Room Air 09/28/24 07:51 Room Air 09/28/24 03:05 Room Air PG Care Time/CCT Total # of Minutes Spent Total Time Spent with Patient: Total time spent is greater than 50% in coordination of care (as documented) at patient's floor/unit and/or counseling patient: Coding [place] [address] SUB INP/OBS CARE MIN Patient Type Established Medical Decision Making Moderate Complexity Diagnoses Rhinovirus infection B34.8 Subtherapeutic anticoagulation Z51.81; Z79.01 GERSON (acute kidney injury) N17.9
[2024-09-28] MEDS ORDERED: WARFARIN SOD 2.5 MG TAB PO SCH (16:00)
[2024-09-28] MEDS: WARFARIN SOD 5 MG TAB PO SCH (16:32)
[2024-09-29 07:01] LABS: Hemoglobin 11.9 g/dl (12.0-16.0); Mean Corpuscular Hemoglobin 33.8 pg (25.0-34.0); Mean Corpuscular Hgb Conc 31.3 g/dL (32.0-36.0); Mean Platelet Volume 9.2 fL (9.4-12.4); Platelet Count 188 K/uL (130-400); RDW Coefficient of Variation 15.1 % (11.5-14.5); Red Blood Count 3.52 M/uL (4.20-5.40); White Blood Count 4.21 K/ul (4.8-10.8)
[2024-09-29 07:10] LABS: Potassium 4.4 mmol/L (3.5-5.1)
[2024-09-29 07:15] LABS: BUN Creatinine Ratio 16.3 (10-20); Creatinine Clr Calc Pharmacy 16.2 ml/min
[2024-09-29 07:55] LABS: INR 3.6 (0.9-1.1); Prothrombin Time 34.9 Seconds (9.0-12.0)
--- NOTE | 2024-09-29 15:25 | Hospitalist Progress Note ---
Date of Service September 29, 2024 Assessment & Plan (1) Rhinovirus infection: (2) Subtherapeutic anticoagulation: (3) EGRSON (acute kidney injury): Plan Patient is an 84-year-old female with past medical history of hypertension, severe , CHF, CKD, aortic valve replacement on Coumadin, history of GI bleed. Presented to the hospital for concerns of weakness, fevers and body aches found to be + for rhino/enterovirus. # Subtherapeutic INR | mechanical aortic valve prosthesis - Valve replaced in 1984, meaning that her PT/INR goal is 2.5 - 3.5 - INR 1.0 on arrival - Patient reports she ran out of her medications at home, however 30 day refill from pharmacy 09/06 - Continue with heparin drip until INR therapeutic (hx of GI bleeds monitor closely). Heparin Anti-Xa high at 0.71 - reduced by 50 units per protocol 09/27 - Patient is unsure who she follows with for anticoagulation; follows with Dr. Kramer and Dr. Beth for valve - Discharged on 08/29 with INR 4.1 (after lokelma) with instructions to hold following day dose and recheck INR. [At this time dose was 5mg daily]. Med list from cardiology visit 09/05 list dose as 5mg SuTuTh and 10mg MoWeFrSa. Discharge instruction from [facility] on 09/08 have dose as 2.5mg dose daily (but had her goal listed as 2-3). [facility]. INR through home health was 1.2 on 09/18. - Suspect that 2.5mg dose is not enough to keep patient therapeutic, and will increase dose back to 5mg daily - aware of hx of GI bleeds, cautious while bridging heparin/warfarin - INR is 3.6 on 09/29 Heparin was discontinued on 09/28; warfarin dosing reduced from 7.5 to 5 mg on 09/28 Resume warfarin 2.5 mg dosing on 09/29 Continue to trend PT/INR - Composed in box note for Dr. Akers ([facility]) on 09/29 to set up follow-up appointment with [facility] Note: Patient currently has [facility] mobile labs as well as and services #H/o medication non-compliance | FTT | recurrent hospitalizations | Concern for patient safety - [place], most recently: (04/04/2024, 04/23/2024, 05/27/2024, and 08/25/2024) with long rehab stays after. Patient has spent a minimal amount of time at home in 2024. - Followed by ambulatory CM, María Benton - Patient given different stories about her medications - in the TCM documentation 09/10 she mentions that she does not know what she is taking. Love stats that she does not allow HH nursing to fill her med box. 09/11 Ambulatory - CM note states she would be willing to let HH nurse fill her container. 09/17 PCP note reports sending meds to [place] for pill packs. Also noting that HH called and "her medications are in a bag on the floor" 09/23 on admission she states she did not take her pills beause she ran out. On 09/24 patient admitted that she did not know she was supposed to be taking medications in the evening and only takes medications in the morning - Also concerns about her ability to manage INR - see ambulatory CM notes, maybe she is checking in daily at home and reports that why she has no supplies, but also meter says it hasnt been checked since 03/03/2024 - Family also has reported concerns about Aleida living alone. But understands they cant force her to go anywhere. Reports she does get meals on wheels and family will have groceries delivered for her, but she does not eat much. - RECORDING STUDIO SET UP WORKER was consulted for cognitive eval - recommend assistance with higher executive functioning (bills, meds) - PT/OT - recommends home with HH; new referral made to [facility] for resumption of care at time of discharge - Patient would be an excellent fit for a [facility]. She is very resistant to this idea. Stating she does okay at home. - Suspect patient may need formal evaluation from office of aging; currently connected to them via [employer] Whe[employer] # Entero-/rhinovirus - No leukocytosis; afebrile. CXR with stable cardiomegaly and pulmonary vascular congestion; no consolidation or pleural effusions - Supportive care: IS, tylenol, mucinex - Currently stable on room air #Headaches | blurry vision - Ongoing - Formal workup in the ED on 08/25; negative head CT; however, neck CTA revealed severe stenosis of the right carotid bulb and proximal right ICA - Temples are nontender to palpation on exam; will defer ESR/CRP in the setting of viral illness - Suspect acute headache exacerbation in the setting of hypertension + viral illness - Supportive care - Acetaminophen PRN - HTN management #HTN - Recent medication changes - lisinopril was stopped last admission due to hyperkalemia. Cardio visit 09/05 rec continue Lasix 20mg MWF, no lisinopril (with hyperkalemia and ). PCP restarted lisinopril on 09/17. - Will plan to continue amlodipine and metoprolol. Resuming Lasix when GERSON resolves. - Suspect salt intake is much higher at home #GERSON - baseline Cr ~1.6 - Mild; creatinine 1.99 on arrival, which increased to 2.16, given 1L LR which improved to 1.95. Now again elevated at 2.42 -> 2.45 despite lactated ringer 1L - Urine Osm ordered, pending - NSS 80mL/hr overnight on 09/29 - Encourage PO fluids - Lisinopril has been discontinued - Trend BMP #HFpEF - Last echocardiogram on 05/28/2024 revealed LVEF at >70%. CXR with cardiomegaly and pulmonary vascular congestion - Daily weights. Strict I&O monitoring - Hold Lasix in the setting of GERSON #Elevated troponin - Troponin 37.9 on arrival and down trended. ECG without ischemic changes. No CP. Suspect elevated in the setting of viral infection - Continuous telemetry monitoring for now #Everyday tobacco cigarette smoker - 0.5 PPD; continue to encourage smoking cessation - Nicotine patch daily #GERD - Continue famotidine, PPI #HLD -Continue atorvastatin Disposition: Continued inpatient stay VTE PPx: Warfarin Admission and Anticipated Discharge Date Admission Date: September 23, 2024 Supervising Physician Co-Signing Physician Notes The patient was not seen by me. The chart was reviewed. Case discussed with DAYNA Monte. Agree with assessment and plan Subjective Mrs. Ty reports she is feeling better today compared to yesterday. She slept better than the night prior. Her main concern this morning is her neck pain, which she attributes to arthritis. Her headache is about the same as yesterday. She says the lidocaine patch on her neck is not helping, and she would like to try some Voltaren gel. She also reports that the Tylenol helped when she took it last night before bed. Yesterday, PT was able to get her up with a walker to ambulate throughout her room, and hallway. No reported falls. Overall, she believes she took a step in the right direction today in regard to her body aches, neck pain, and headache, as her symptoms are milder by comparison. ROS: Patient endorses ongoing joint pain, swelling at night, headache, blurry vision, and dry cough (hacking, but improved from the day prior) Patient denies fever, chills, chest pain, SOB, abdominal pain, N/V/D, melena, blood in the urine or stool, burning with ration, or numbness tingling in arms or legs. Review of Systems Review of Systems: See HPI above Physical Exam Physical Exam: General: no acute distress; sitting upright in her chair eating breakfast; pleasant affect; non-toxic appearing; frail appearing; cooperative; SpO2 96% on RA HEENT: normocephalic, atraumatic; no scleral icterus; PERRLA; vision and hearing intact; temples are nontender to palpation bilaterally; patient demonstrates 2 to protrude and vocal tongue bilaterally without unilateral deficits Neck: supple; trachea midline Skin: warm, dry without signs of tenting; no cyanosis; no rashes, bruising, lesions, or erythema noted CV: chest wall NTP; RRR; S1/S2 normal; no murmurs/rubs/gallops; pulses intact and symmetric at radial, DP, and PT Lungs: no acute respiratory distress; symmetrical chest wall expansion; clear breath sounds across all lung ge w/o adventitious sounds; no wheezing ABD: Soft, NTP; BS present; no rebound/guarding; no distention MSK: no tics or fasciculations; no edema noted in the lower extremity bilaterally, nonerythematous; 5/5 it solutions sales consultant strength bilaterally Neuro: A&Ox3; normal mood and affect; fluent speech; no focal deficits appreciated; patient reports sensation is intact and symmetric in the upper extremities and lower extremity bilaterally assessed via light touch Results & Data Results & Data Vital Signs (Past 12 Hours) Vital Signs Temp Pulse Pulse Resp BP BP Pulse Ox 09/29/24 13:53 77 09/29/24 11:41 36.4 C L 72 12 143/82 H 96 09/29/24 10:42 09/29/24 08:00 36.6 C 87 16 164/83 H 96 09/29/24 07:31 80 09/29/24 03:42 36.5 C 77 16 139/65 96 O2 Del Method 09/29/24 13:53 09/29/24 11:41 Room Air 09/29/24 10:42 Room Air 09/29/24 08:00 Room Air 09/29/24 07:31 09/29/24 03:42 Room Air PG Care Time/CCT Total # of Minutes Spent Total Time Spent with Patient: Total time spent is greater than 50% in coordination of care (as documented) at patient's floor/unit and/or counseling patient: C[place] [address] SUB INP/OBS CARE 2/35MIN Patient Type Established Medical Decision Making Moderate Complexity Diagnoses Rhinovirus infection B34.8 Subtherapeutic anticoagulation Z51.81; Z79.01 GERSON (acute kidney injury) N17.9
[2024-09-29] MEDS: WARFARIN SOD 2.5 MG TAB PO SCH (15:35)
[2024-09-29] MEDS: SODIUM CHLORIDE 0.9% 1,000 ML IV SCH (18:11)
[2024-09-29] MEDS ORDERED: MELATONIN 3 MG TAB PO PRN (21:32)
[2024-09-30 07:01] LABS: Basophils # (auto) 0.02 K/uL (0.00-0.20); Basophils % (auto) 0.5 %; Eosinophils # (auto) 0.21 K/uL (0.00-0.50); Eosinophils % (auto) 5.5 %; Hematocrit (blood only) 37.4 % (37.0-47.0); Hemoglobin 11.5 g/dl (12.0-16.0); Immature Granulocytes # (auto) 0.04 K/uL (0.01-0.20); Immature Granulocytes % (auto) 1.1 %; Lymphocytes % (auto) 21.1 %; Mean Corpuscular Hgb Conc 30.7 g/dL (32.0-36.0); Mean Corpuscular Volume 107.5 fL (80.0-100.0); Mean Platelet Volume 9.3 fL (9.4-12.4); Monocytes # (auto) 0.39 K/uL (0.11-0.59); Monocytes % (auto) 10.3 %; Neutrophils # (auto) 2.34 K/uL (1.40-6.50); Neutrophils % (auto) 61.5 %; Platelet Count 193 K/uL (130-400); RDW Coefficient of Variation 15.1 % (11.5-14.5); RDW Standard Deviation 59.9 fL (36.4-46.3); Red Blood Count 3.48 M/uL (4.20-5.40)
[2024-09-30 07:13] LABS: Prothrombin Time 29.4 Seconds (9.0-12.0)
[2024-09-30 07:20] LABS: Calcium 8.7 mg/dl (8.6-10.3); Potassium 4.4 mmol/L (3.5-5.1)
[2024-09-30 07:26] LABS: BUN Creatinine Ratio 17.3 (10-20)
[2024-09-30] MEDS: LABETALOL HCL IV 5 MG/ML 20ML IV STA (10:35)
[2024-09-30] MEDS ORDERED: LABETALOL HCL IV 5 MG/ML 20ML IV PRN (16:46)
--- NOTE | 2024-09-30 16:46 | Hospitalist Progress Note ---
Date of Service September 30, 2024 Assessment & Plan (1) Rhinovirus infection: (2) Subtherapeutic anticoagulation: (3) GERSON (acute kidney injury): Plan Patient is an 84-year-old female with past medical history of hypertension, severe , CHF, CKD, aortic valve replacement on Coumadin, history of GI bleed. Presented to the hospital for concerns of weakness, fevers and body aches found to be + for rhino/enterovirus. #H/o medication non-compliance | FTT | recurrent hospitalizations | Concern for patient safety - Recurrent [place] hospitalizations, most recently: (04/04/2024, 04/23/2024, 05/27/2024, and 08/25/2024) with long rehab stays after. Patient has spent a minimal amount of time at home in 2024. - Followed by ambulatory CM, María Benton - Patient given different stories about her medications - in the TCM documentation 09/10 she mentions that she does not know what she is taking. Love stats that she does not allow HH nursing to fill her med box. 09/11 Ambulatory - CM note states she would be willing to let HH nurse fill her container. 09/17 PCP note reports sending meds to [facility] for pill packs. Also noting that HH called and "her medications are in a bag on the floor" 09/23 on admission she states she did not take her pills beause she ran out. On 09/24 patient admitted that she did not know she was supposed to be taking medications in the evening and only takes medications in the morning - Also concerns about her ability to manage INR - see ambulatory CM notes, maybe she is checking in daily at home and reports that why she has no supplies, but also meter says it hasnt been checked since 03/03/2024 - Family also has reported concerns about Aleida living alone. But understands they cant force her to go anywhere. Reports she does get meals on wheels and family will have groceries delivered for her, but she does not eat much. - MEDICAL TECHNOLOGIST [employer]MISTRY was consulted for cognitive eval - recommend assistance with higher executive functioning (bills, meds) - PT/OT - Recommending HH - Re-evaluated on 09/30; patient got out of bed, transfers, and ambulated 140 feet with supervision; still okay for home health - Plan for resumption of [facility] upon discharge - Patient would be an excellent fit for a [facility]. She is very resistant to this idea. Stating she does okay at home. - Suspect patient may need formal evaluation from office of aging; currently connected to them via [employer] # Subtherapeutic INR (resolved) | mechanical aortic valve prosthesis - Valve replaced in 1984, meaning that her PT/INR goal is 2.5 - 3.5 - INR 1.0 on arrival - Patient reports she ran out of her medications at home, however 30 day refill from pharmacy 09/06 - INR now therapeutic at 3.0 on 09/30; heparin drip has been discontinued and patient's regular warfarin dosing 2.5mg daily has been reinitiated - Follows with [facility]; sent message to Dr. Akers on 09/29 to set up follow-up appointment with the [facility] clinic Note: Patient currently has [facility] mobile labs as well as and services, but has struggled in monitoring her INR in the past. - Trend PT/INR # Entero-/rhinovirus - No leukocytosis; afebrile. CXR with stable cardiomegaly and pulmonary vascular congestion; no consolidation or pleural effusions - Supportive care: IS, tylenol, mucinex - Currently stable on room air - Ambulatory pulse ox study on 09/30 revealed that patient is 99% on room air w ith ambulation #Headaches | blurry vision - Ongoing - Formal workup in the ED for headache on 08/25; negative head CT; however, neck CTA revealed severe stenosis of the right carotid bulb and proximal right ICA - Temples are nontender to palpation on exam; will defer ESR/CRP in the setting of viral illness - Suspect acute headache exacerbation in the setting of hypertension + viral illness - Supportive care - Acetaminophen PRN - HTN management #HTN - Recent medication changes - lisinopril was stopped last admission due to hyperkalemia. Cardio visit 09/05 rec continue Lasix 20mg MWF, no lisinopril (with hyperkalemia and ). PCP restarted lisinopril on 09/17. - Will plan to continue amlodipine and metoprolol. Resuming Lasix when GERSON resolves. - Suspect salt intake is much higher at home - IV labetalol PRN for sustained SBP >185 or DBP >110 - Given patient had previously been on 3+ HTN medications (amlodipine, metoprolol, lisinopril) and was still experience HTN on arrival, suspect there could be a component of renal artery stenosis - Bilateral renal artery ultrasound ordered on 09/30, pending #GERSON - baseline Cr ~1.6 - Mild; creatinine 1.99 on arrival, which increased to 2.16, given 1L LR which improved to 1.95. Now again elevated at 2.48 despite fluids - Lisinopril has been discontinued - Urine Osm mildly elevated at 305 - Unclear etiology; ?New baseline vs. VIOLA - Encourage PO fluids - Trend BMP #HFpEF - Last echocardiogram on 05/28/2024 revealed LVEF at >70%. CXR with cardiomegaly and pulmonary vascular congestion - Daily weights. Strict I&O monitoring - Hold Lasix in the setting of GERSON #Elevated troponin - Troponin 37.9 on arrival and down trended. ECG without ischemic changes. No CP. Suspect elevated in the setting of viral infection - Continuous telemetry monitoring for now #Everyday tobacco cigarette smoker - 0.5 PPD; continue to encourage smoking cessation - Nicotine patch daily #GERD - Continue famotidine, PPI #HLD -Continue atorvastatin Disposition: Patient had a full workup for her MENDEZ/weakness/ambulatory dysfunction conducted on 09/30; PT evaluations again report she is safe to return home on home health; negative amatory pulse ox study for hypoxia Despite this, patient is still concerned about dizziness/lightheadedness with ambulation Orthostatic vitals + ultrasound of the renal arteries have been ordered; if no acute findings, will plan for potential discharge with home health on 10/01 VTE PPx: Warfarin Admission and Anticipated Discharge Date Admission Date: September 23, 2024 Supervising Physician Co-Signing Physician Notes The patient was not seen by me. The chart was reviewed. Case discussed with DAYNA Monte. Agree with assessment and plan Subjective Mrs. Ty reports she is feeling worse than yesterday. She reports her headache is ongoing, her eyes are blurry, and she feels dizzy/lightheaded whenever she gets up to walk. In particular, she reports that whenever she comes back from the bathroom she feels lightheaded, and does not feel like she is safe to go home at this point. Her headache tends to start posteriorly, then radiate to the front of her head. She is unsure if she has a history of seasonal allergies. Additionally, she reports that her dyspnea on exertion has gotten worse today. She says "there is no point in me going home, since I know was going to happen. I will just end up coming back to the emergency department". Patient denies prior history of vertigo. She does report that she uses her cane/walker at home. She is eating and drinking okay. ROS: Patient endorses ongoing joint pain, forehead sweating at night, headache, blurry vision, dyspnea on exertion, and dry cough (hacking, about the same as yesterday). Patient denies fever, chills, chest pain, SOB, abdominal pain, N/V/D, melena, blood in the urine or stool, burning with ration, or numbness tingling in arms or legs. Review of Systems Review of Systems: See HPI above Physical Exam Physical Exam: General: no acute distress; sitting upright in her bed eating lunch; non-toxic appearing; frail appearing; SpO2 100% on RA HEENT: normocephalic, atraumatic; no scleral icterus; PERRLA; vision and hearing intact; temples are nontender to palpation bilaterally; patient demonstrates ability to protrude and wiggle tongue bilaterally without unilateral deficits Neck: supple; trachea midline Skin: warm, dry without signs of tenting; no cyanosis; no rashes, bruising, lesions, or erythema noted CV: chest wall NTP; RRR; S1/S2 normal; no murmurs/rubs/gallops; pulses intact and symmetric at radial, DP, and PT Lungs: no acute respiratory distress; symmetrical chest wall expansion; clear breath sounds across all lung ge w/o adventitious sounds; no wheezing ABD: Soft, NTP; BS present; no rebound/guarding; no distention MSK: no tics or fasciculations; no edema noted in the lower extremity bilaterally, nonerythematous; 5/5 electrical line splicer strength bilaterally Neuro: A&Ox3; normal mood and affect; fluent speech; no focal deficits appreciated; patient reports sensation is intact and symmetric in the upper extremities and lower extremity bilaterally assessed via light touch Results & Data Results & Data Vital Signs (Past 12 Hours) Vital Signs Temp Pulse Pulse Pulse Pulse Pulse Resp 09/30/24 14:32 83 79 77 09/30/24 11:09 36.7 C 73 14 09/30/24 11:08 73 09/30/24 10:35 94 H 09/30/24 09:55 09/30/24 07:50 74 09/30/24 07:50 09/30/24 07:42 36.7 C 81 18 Resp Resp Resp BP BP Pulse Ox Pulse Ox 09/30/24 14:32 12 12 12 99 09/30/24 11:09 136/77 98 09/30/24 11:08 136/77 09/30/24 10:35 200/104 H 09/30/24 09:55 172/109 H 09/30/24 07:50 09/30/24 07:50 09/30/24 07:42 169/87 H 99 Pulse Ox Pulse Ox O2 Del Method 09/30/24 14:32 98 100 Room Air 09/30/24 11:09 Room Air 09/30/24 11:08 09/30/24 10:35 09/30/24 09:55 09/30/24 07:50 09/30/24 07:50 Room Air 09/30/24 07:42 Room Air PG Care Time/CCT Total # of Minutes Spent Total Time Spent with Patient: Total time spent is greater than 50% in coordination of care (as documented) at patient's floor/unit and/or counseling patient: Coding [place] [address] SUB INP/OBS CARE 3/50MIN Patient Type Established Medical Decision Making High Complexity Diagnoses Rhinovirus infection B34.8 Subtherapeutic anticoagulation Z51.81; Z79.01 GERSON (acute kidney injury) N17.9
[2024-10-01 03:41] VITALS: TEMP 97.9
[2024-10-01 06:26] LABS: INR 2.3 (0.9-1.1); Prothrombin Time 23.5 Seconds (9.0-12.0)
--- NOTE | 2024-10-01 09:29 | Ultrasound Report ---
EXAM: US duplex renal art/vein BI CLINICAL HISTORY: VIOLA assessment TECHNIQUE: A renal ultrasound was performed using grayscale and color Doppler imaging. One or more of the following were performed- spectral analysis, resistive index, waveform analysis, and pulsed Doppler. COMPARISON: Comparison is made with prior US dated 03/19/2024. FINDINGS: Right Kidney: The right kidney measures 11.8 cm. Unchanged multiple variable size cortical cysts in the right kidney. No hydronephrosis, calculi, or masses were identified. Renal parenchymal echogenicity is normal. Cortical thickness: Within normal. The renal pelvis is within normal. On color Doppler, normal vascularity of the kidney. Left Kidney: The left kidney measures 9.1 cm. Unchanged multiple variable size cortical cysts in the left kidney. No hydronephrosis, calculi, or masses were identified. Renal parenchymal echogenicity is normal. Cortical thickness: Within normal. The renal pelvis is within normal. On color Doppler, normal vascularity of the kidney. Perinephric fat, fluid, and adrenal glands appear unremarkable. Right renal artery: Proximal: PSV - 104 cm/s, EDV - 16 cm/s, RI - 0.8 Mid: PSV - 164 cm/s, EDV - 23 cm/s, RI - 0.8 Distal: PSV - 106 cm/s, EDV - 24 cm/s, RI - 0.7 Right arcuate arteries: Upper pole: PSV - 12 cm/s, EDV - 4 cm/s, RI - 0.6 Midpole: PSV - 14 cm/s, EDV - 5 cm/s, RI - 0.6 Lower pole: PSV - 16 cm/s, EDV - 6 cm/s, RI - 0.6 Left renal artery: Proximal: PSV - 320cm/s, EDV - 0 cm/s, RI - 1.0 Mid: PSV - 306 cm/s, EDV - 0 cm/s, RI - 1.0 Distal: PSV - 109 cm/s, EDV - 0 cm/s, RI - 1.0 Left arcuate arteries: Upper pole: PSV - 7 cm/s, EDV - 4 cm/s, RI - 0.5 Midpole: PSV - 5 cm/s, EDV - 3 cm/s, RI - 0.5 Lower pole: PSV - 11 cm/s, EDV - 4 cm/s, RI - 0.6 Aorta: PSV - 70 cm/s, EDV - 17 cm/s, RI - 0.7 Measurements are within normal limits. Right RAR: 2.7 Left RAR: 4.6 IMPRESSION: 1. Findings are suggestive of significant left renal artery stenosis, evident by elevated left RAR. 2. Increase the PSV of the right renal arteries with no evidence of significant stenosis. 3. Unchanged multiple variable-size cortical cysts in bilateral kidneys. Electronically signed by Nabil Hatch 10-01-2024 09:28 AM
[2024-10-01 11:44] VITALS: PULSE 72; RESP 13; O2SAT 99
--- NOTE | 2024-10-01 12:02 | Discharge Summary ---
Date of Service October 01, 2024 Admission HPI Per Admitting Provider Mrs. Ty is an 84-year-old female with PMH of glaucoma, CKD, encephalopathy, mechanical AVR now with recurrent severe aortic stenosis, INES, and HTN urgency. 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 She was reports she developed diarrhea several days ago. No sick contacts or knowledge. Patient lives on her own. She reports taking her regular morning medicine today, and managing her own pills at home; however, she reports that she ran out of her warfarin. She has been calling to have it picked up, but not taking it. She also reports she has home health nurse come by and help with putting pills in boxes. Patient is a current everyday tobacco cigarette smoker; 0.5 PPD; she would like a nicotine patch while here. She denies any recent alcohol use. Additionally, she reports that she developed diarrhea a few days ago; liquid in consistency; brown in color; no melena or bright red blood in the stool. Patient denies using supplemental oxygen at baseline or CPAP at night. No history of DVT/PE to her knowledge. Patient is hypertensive at 161/95; vitals otherwise stable. ED course: Acetaminophen 1000 mg IV Low-dose heparin IV + bolus ROS: Patient endorses sweating, chills, body aches, joint pain, generalized weakness, MENDEZ, productive cough, diarrhea, and numbness in the fingers and toes b/l. Patient denies fever, SOB at rest, chest pain, rashes, tick bites, chest palpitations, pleuritic CP, abdominal pain, N/V, burning with urination, or blood in the urine/stool. Addendum: Provided update to patient's niece (Love) at bedside. Niece re ports that she was recently at [facility], but got out 2 weeks ago. She had a follow-up appointment with her fishing line winding machine operator (Dr. Kramer) who placed her back on Lasix 3 times weekly for lower extremity edema. Patient lives independently, and niece reports that she did have a nurse come in to draw her blood last week, but she never heard about an INR (unclear if this was drawn). Niece also reports that the patient was at her eye doctor yesterday for glaucoma, and there was some concern about elevated eye pressure. Specialty Data Hospitalist Discharge diagnosis: 1. Subtherapeutic INR 2. Rhinovirus 3. Medical noncompliance Discharge assessment: Vital Signs Temp Pulse Pulse Pulse Pulse Pulse Resp 10/01/24 11:16 36.6 C 72 13 10/01/24 08:12 10/01/24 07:38 36.6 C 78 16 10/01/24 03:40 36.6 C 83 16 10/01/24 01:43 10/01/24 01:42 73 10/01/24 00:13 36.8 C 80 16 09/30/24 19:46 36.5 C 75 16 09/30/24 17:02 87 09/30/24 14:32 83 79 77 Resp Resp Resp BP BP Pulse Ox Pulse Ox 10/01/24 11:16 155/84 H 99 10/01/24 08:12 10/01/24 07:38 162/75 H 166/90 H 98 10/01/24 03:40 148/80 H 97 10/01/24 01:43 10/01/24 01:42 10/01/24 00:13 153/89 H 98 09/30/24 19:46 136/77 98 09/30/24 17:02 09/30/24 14:32 12 12 12 99 Pulse Ox Pulse Ox O2 Del Method 10/01/24 11:16 Room Air 10/01/24 08:12 Room Air 10/01/24 07:38 Room Air 10/01/24 03:40 Room Air 10/01/24 01:43 Room Air 10/01/24 01:42 10/01/24 00:13 Room Air 09/30/24 19:46 Room Air 09/30/24 17:02 09/30/24 14:32 98 100 Room Air GENERAL: 84 yo well-nourished elderly AAF. A&Ox3. No distress. LUNGS: Clear to auscultation bilaterally. No W/R/R. CARDIOVASCULAR: Regular rate and rhythm +murmur. ABDOMEN: Soft, non-tender and non-distended. BS normoactive x 4 quad. EXTREMITIES: Trace b/l LE edema. Non-tender. Peripheral pulses +2/4. SKIN: Warm, dry, intact. No rashes or lesions. Discharge Data Consultations 09/23/24 13:55 ED Decision to Admit Stat Procedures Performed Chest X-Ray 09/23/24 12:03 XR chest 1V portable CLINICAL HISTORY: HTN COMPARISON STUDY: 08/25/2024 FINDINGS: Stable CABG. Stable cardiomegaly with pulmonary vascular congestion. Stable mild pulmonary interstitial prominence. No consolidation or pleural effusion. No pneumothorax. IMPRESSION: Stable CHF. ACT 112: Negative or not required by law. Electronically signed by: Alvaro Blakely M.D. 09/23/2024 1:13 PM Renal Artery Duplex 10/01/24 00:00 EXAM: US duplex renal art/vein BI CLINICAL HISTORY: VIOLA assessment TECHNIQUE: A renal ultrasound was performed using grayscale and color Doppler imaging. One or more of the following were performed- spectral analysis, resistive index, waveform analysis, and pulsed Doppler. COMPARISON: Comparison is made with prior US dated 03/19/2024. FINDINGS: Right Kidney: The right kidney measures 11.8 cm. Unchanged multiple variable size cortical cysts in the right kidney. No hydronephrosis, calculi, or masses were identified. Renal parenchymal echogenicity is normal. Cortical thickness: Within normal. The renal pelvis is within normal. On color Doppler, normal vascularity of the kidney. Left Kidney: The left kidney measures 9.1 cm. Unchanged multiple variable size cortical cysts in the left kidney. No hydronephrosis, calculi, or masses were identified. Renal parenchymal echogenicity is normal. Cortical thickness: Within normal. The renal pelvis is within normal. On color Doppler, normal vascularity of the kidney. Perinephric fat, fluid, and adrenal glands appear unremarkable. Right renal artery: Proximal: PSV - 104 cm/s, EDV - 16 cm/s, RI - 0.8 Mid: PSV - 164 cm/s, EDV - 23 cm/s, RI - 0.8 Distal: PSV - 106 cm/s, EDV - 24 cm/s, RI - 0.7 Right arcuate arteries: Upper pole: PSV - 12 cm/s, EDV - 4 cm/s, RI - 0.6 Midpole: PSV - 14 cm/s, EDV - 5 cm/s, RI - 0.6 Lower pole: PSV - 16 cm/s, EDV - 6 cm/s, RI - 0.6 Left renal artery: Proximal: PSV - 320cm/s, EDV - 0 cm/s, RI - 1.0 Mid: PSV - 306 cm/s, EDV - 0 cm/s, RI - 1.0 Distal: PSV - 109 cm/s, EDV - 0 cm/s, RI - 1.0 Left arcuate arteries: Upper pole: PSV - 7 cm/s, EDV - 4 cm/s, RI - 0.5 Midpole: PSV - 5 cm/s, EDV - 3 cm/s, RI - 0.5 Lower pole: PSV - 11 cm/s, EDV - 4 cm/s, RI - 0.6 Aorta: PSV - 70 cm/s, EDV - 17 cm/s, RI - 0.7 Measurements are within normal limits. Right RAR: 2.7 Left RAR: 4.6 IMPRESSION: 1. Findings are suggestive of significant left renal artery stenosis, evident by elevated left RAR. 2. Increase the PSV of the right renal arteries with no evidence of significant stenosis. 3. Unchanged multiple variable-size cortical cysts in bilateral kidneys. Electronically signed by Nabil Hatch 10-01-2024 09:28 AM Hospital Course (1) Rhinovirus infection: (2) Subtherapeutic anticoagulation: (3) GERSON (acute kidney injury): Plan Patient is an 84-year-old female with past medical history of hypertension, severe , CHF, CKD, aortic valve replacement on Coumadin, history of GI bleed. Presented to the hospital for concerns of weakness, fevers and body aches found to be + for rhino/enterovirus. #H/o medication non-compliance | FTT | recurrent hospitalizations | Concern for patient safety - Recurrent [place] hospitalizations, most recently: (04/04/2024, 04/23/2024, 05/27/2024, and 08/25/2024) with long rehab stays after. Patient has spent a minimal amount of time at home in 2024. - Followed by ambulatory CM, María Benton - Patient given different stories about her medications - in the TCM d ocumentation 09/10 she mentions that she does not know what she is taking. Love stats that she does not allow HH nursing to fill her med box. 09/11 Ambulatory - CM note states she would be willing to let HH nurse fill her container. 09/17 PCP note reports sending meds to [facility] for pill packs. Also noting that HH called and "her medications are in a bag on the floor" 09/23 on admission she states she did not take her pills beause she ran out. On 09/24 patient admitted that she did not know she was supposed to be taking medications in the evening and only takes medications in the morning - Also concerns about her ability to manage INR - see ambulatory CM notes, maybe she is checking in daily at home and reports that why she has no supplies, but also meter says it hasnt been checked since 03/03/2024 - Family also has reported concerns about Aleida living alone. But understands they cant force her to go anywhere. Reports she does get meals on wheels and family will have groceries delivered for her, but she does not eat much. - PATIENT CARE NURSING ASSISTANT was consulted for cognitive eval - recommend assistance with higher executive functioning (michel agee) - PT/OT - Recommending HH - Re-evaluated on 09/30; patient got out of bed, transfers, and ambulated 140 feet with supervision; still okay for home health - Plan for resumption of [facility] home health upon discharge - Patient would be an excellent fit for a [facility]. She is very resistant to this idea. Stating she does okay at home. - Suspect patient may need formal evaluation from office of aging; currently connected to them via [employer] # Subtherapeutic INR (resolved) | mechanical aortic valve prosthesis - Valve replaced in 1984, meaning that her PT/INR goal is 2.5 - 3.5 - INR 1.0 on arrival - Patient reports she ran out of her medications at home, however 30 day refill from pharmacy 09/06 - INR now therapeutic at 3.0 on 09/30; heparin drip has been discontinued and patient's regular warfarin dosing 2.5mg daily has been reinitiated - Follows with [facility] cardiology; sent message to Dr. Akers on 09/29 to set up follow-up appointment with the [facility] anticoagulation clinic Note: Patient currently has [facility] mobile labs as well as and services, but has struggled in monitoring her INR in the past. - Trend PT/INR # Entero-/rhinovirus - No leukocytosis; afebrile. CXR with stable cardiomegaly and pulmonary vascular congestion; no consolidation or pleural effusions - Supportive care: IS, tylenol, mucinex - Currently stable on room air - Ambulatory pulse ox study on 09/30 revealed that patient is 99% on room air with ambulation #Headaches | blurry vision - Ongoing - Formal workup in the ED for headache on 08/25; negative head CT; however, neck CTA revealed severe stenosis of the right carotid bulb and proximal right ICA - Temples are nontender to palpation on exam; will defer ESR/CRP in the setting of viral illness - Suspect acute headache exacerbation in the setting of hypertension + viral illness - Supportive care - Acetaminophen PRN - HTN management #HTN - Recent medication changes - lisinopril was stopped last admission due to hyperkalemia. Cardio visit 09/05 rec continue Lasix 20mg MWF, no lisinopril (with hyperkalemia and ). PCP restarted lisinopril on 09/17. - Will plan to continue amlodipine and metoprolol. Resuming Lasix when GERSON resolves. - Suspect salt intake is much higher at home - IV labetalol PRN for sustained SBP >185 or DBP >110 - Given patient had previously been on 3+ HTN medications (amlodipine, metoprolol, lisinopril) and was still experience HTN on arrival, suspect there could be a component of renal artery stenosis - Bilateral renal artery ultrasound ordered and resulted as significant left renal artery stenosis. Referral placed to vascular surgery to be seen/managed as outpatient. #GERSON - baseline Cr ~1.6 - Mild; creatinine 1.99 on arrival, which increased to 2.16, given 1L LR which improved to 1.95. Now again elevated at 2.48 despite fluids - Lisinopril has been discontinued - Urine Osm mildly elevated at 305 - IVF capped on 10/01. F/u with BMP on Tuesday 10/03. Avoid nephrotoxic meds. - Renal doppler noted significant left VIOLA #HFpEF - Last echocardiogram on 05/28/2024 revealed LVEF at >70%. CXR with cardiomegaly and pulmonary vascular congestion - Daily weights. Strict I&O monitoring - Hold Lasix in the setting of GERSON--could consider resumption as outpatient pending labs on 10/03 #Elevated troponin - Troponin 37.9 on arrival and down trended. ECG without ischemic changes. No CP. Suspect elevated in the setting of viral infection - ACS ruled out. #Everyday tobacco cigarette smoker - 0.5 PPD; continue to encourage smoking cessation - Nicotine patch daily #GERD - Continue famotidine, PPI #HLD -Continue atorvastatin Patient is medically and hemodynamically stable for discharge home with home health. Patient declined personal care. Will need close f/u with PCP within 3-5 days of discharge. She is to have f/u labs on 10/03 to trend her creatinine as well as her INR. Vascular surgery referral placed for VIOLA and to be arranged by auto mechanics instructor. Plan of care has been d/w Dr. Camargo who is in agreement. Total time for discharge: 35 minutes Supervising Physician Co-Signing Physician Notes The patient was not seen by me. The chart was reviewed. Case discussed with DAYNA Kruse. Agree with assessment and plan Coding Level of Care Code 02733 INP/OBS DISCH >30 MIN Diagnoses Rhinovirus infection B34.8 Subtherapeutic anticoagulation Z51.81; Z79.01 GERSON (acute kidney injury) N17.9
[2024-10-01 13:17] VITALS: BP 166/90
== END 2024-10-01 14:00 | disposition home health service (06) | DRG 866 ==
LOC: ED 11:38 → 2W 14:57 → SUATTDRO 14:57 → 2W 15:54

== ENCOUNTER 2024-11-07 20:49 | Inpatient (IN) ==
[2024-11-07] MEDS: ACETAMINOPHEN 500 MG TAB PO STA (21:47)
[2024-11-07 22:10] LABS: Hematocrit (blood only) 43.4 % (37.0-47.0); Hemoglobin 13.6 g/dl (12.0-16.0); Immature Granulocytes # (auto) 0.02 K/uL (0.01-0.20); Immature Granulocytes % (auto) 0.4 %; Mean Corpuscular Hemoglobin 33.5 pg (25.0-34.0); Mean Corpuscular Volume 106.9 fL (80.0-100.0); Platelet Count 206 K/uL (130-400); RDW Standard Deviation 59.2 fL (36.4-46.3); Red Blood Count 4.06 M/uL (4.20-5.40); White Blood Count 5.28 K/ul (4.8-10.8)
[2024-11-07] MEDS: NITROGLYCERIN 2% OINTMENT 30GM TUBE EXT STA (22:24)
[2024-11-07] MEDS: FUROSEMIDE INJ 20 MG/2 ML VIAL IV ONE (22:25)
[2024-11-07 22:29] LABS: Alanine Aminotransferase 13.0 U/L (7-52); Albumin Globulin Ratio 1.1 (0.9-2); Alkaline Phosphatase 135.0 U/L (34-104); Anion Gap 10.0 (3-11); Bilirubin,Total 0.5 mg/dl (0.2-1.0); Blood Urea Nitrogen 41.0 mg/dl (6-23); Calcium 9.6 mg/dl (8.6-10.3); Carbon Dioxide 19.0 mmol/L (21-32); Chloride 109.0 mmol/L (98-107); Creatinine Clr Calc Pharmacy 22.6 ml/min; Globulin 3.9 gm/dl (2.5-4.0); Glucose 101.0 mg/dl (70-99(Fasting)); Magnesium 2.3 mg/dl (1.7-2.4); Potassium 4.0 mmol/L (3.5-5.1); Sodium 138.0 mmol/L (136-145); Total Protein 8.2 gm/dl (6.0-8.3)
[2024-11-07 23:05] LABS: Chlamydia pneumoniae PCR Not Detected (NotDetected); Coronavirus 229E PCR Not Detected (NotDetected); Coronavirus CoV-2 (COVID19)PCR Not Detected (NotDetected); Coronavirus HKU1 PCR Not Detected (NotDetected); Coronavirus NL63 PCR Not Detected (NotDetected); Coronavirus OC43PCR Not Detected (NotDetected); Human Metapneumovirus PCR Not Detected (NotDetected); Parainfluenza Virus 1 PCR Not Detected (NotDetected); Parainfluenza Virus 2 PCR Not Detected (NotDetected); Parainfluenza Virus 3 PCR Not Detected (NotDetected); Parainfluenza Virus 4 PCR Not Detected (NotDetected); Respiratory Syncytial VirusPCR Not Detected (NotDetected); Rhinovirus/Enterovirus PCR Not Detected (NotDetected)
[2024-11-08] LABS: INR 1.0 (0.9-1.1); Prothrombin Time 10.7 Seconds (9.0-12.0)
--- NOTE | 2024-11-08 00:53 | History & Physical Report ---
Date of Service November 08, 2024 Assessment & Plan (1) CHF (congestive heart failure): (2) History of medication noncompliance: (3) Hypertension: (4) Acute confusion: (5) On warfarin therapy: (6) Atrial fibrillation with RVR: (7) Current every day smoker: Plan The patient is a 84-year-old female with a past medical history including medical noncompliance, hypertension, gait disturbance, cerebral microvascular disease, acute encephalopathy, hyperlipidemia, glaucoma, CHF, GERD, and atrial fibrillation prescribed warfarin. The patient is not able to contribute to HPI or review of systems due to fatigue. From the emergency department she received Tylenol 1 g p.o., nitro paste 0.5 inches, and furosemide 20 mg IV. Chest x-ray was suggestive of mild pulmonary edema, and patient was noted to have 1+ pitting edema pretibially. Patient's INR was 1.0, which is is consistent with her history of medical noncompliance. CHF exacerbation/mild confusion/A-fib with RVR/history of medical noncompliance- Given furosemide 20 mg IV in ED Follow response to IV furosemide and resume in the a.m. if still necessary at that time Hold lisinopril Decrease amlodipine from 10 to 5 mg daily Continue metoprolol succinate 12.5 mg every morning, hydralazine 10 mg p.o. 3 times daily INR is 1.0, with warfarin prescribed by anticoagulation clinic Placed on Lovenox 1 mg/kg SQ every 12 hours as a bridge until INR is therapeutic again Start warfarin 10 mg p.o. daily Follow serial CBC with differential, renal function panel, magnesium, PT/INR/PTT [employer] is negative Mild confusion and lethargy- CT scan of head and cervical spine are still pending after 5 hours Further treatment when results are finally available Recurrent about [place] hospitalizations- 04/04/2024, 04/23/2024, 05/27/2024, 08/25/2024, 09/29/2024, and today GERD- Continue pantoprazole 40 mg p.o. twice daily Continue famotidine 20 mg daily Glaucoma- Continue brimonidine, dorzolamide, and latanoprost History of Present Illness Chief Complaint: The patient presents to the emergency department with reported generalized weakness, confusion, shortness of breath. Primary Care Provider: DARNELL Lemus The patient is a 84-year-old female with a past medical history including medical noncompliance, hypertension, gait disturbance, cerebral microvascular disease, acute encephalopathy, hyperlipidemia, glaucoma, CHF, GERD, and atrial fibrillation prescribed warfarin. The patient is not able to contribute to HPI or review of systems due to fatigue. From the emergency department she received Tylenol 1 g p.o., nitro paste 0.5 inches, and furosemide 20 mg IV. Chest x-ray was suggestive of mild pulmonary edema, and patient was noted to have 1+ pitting edema pretibially. Patient's INR was 1.0, which is is consistent with her history of medical noncompliance. Allergies Allergy/AdvReac Type Severity Reaction Status Date / Time No Known Allergies Allergy Verified 10/17/24 13:02 Home Medications Medication Instructions Recorded Confirmed Type latanoprost 0.005 % eye drops 1 drp OPB PM 07/31/23 11/07/24 History Shower Chair #1 ea 11/20/23 11/07/24 Rx brimonidine 0.2 % eye drops 1 drp OPB TID 03/18/24 11/07/24 History dorzolamide 2 % eye drops 1 drp OPB BID 03/18/24 11/07/24 History lidocaine 5 % topical patch 1 patch transdermal QAM #10 ea 08/29/24 11/07/24 Rx atorvastatin 40 mg tablet 40 mg PO QAM #90 tabs 09/17/24 11/07/24 Rx metoprolol succinate 25 mg 12.5 mg (1/2 x 25 mg) PO QAM #45 09/17/24 11/07/24 Rx tablet,extended release 24 hr tabs nitroglycerin 0.4 mg sublingual 0.4 mg sublingual DAILY PRN Chest 09/17/24 11/07/24 History tablet Pain gabapentin 100 mg capsule 100 mg PO BID PRN pain #180 caps 10/06/24 11/07/24 Rx famotidine 20 mg tablet 20 mg PO DAILY #90 tabs 10/15/24 11/07/24 Rx hydralazine 10 mg tablet 10 mg PO TID #270 tabs 10/15/24 11/07/24 Rx benzonatate 200 mg capsule 200 mg PO TID PRN cough #30 caps 10/17/24 11/07/24 Rx amlodipine 10 mg tablet 10 mg PO QAM 11/07/24 11/07/24 History furosemide 20 mg tablet 20 mg PO 3XWK 11/07/24 11/07/24 History lisinopril 10 mg tablet 10 mg PO QAM 11/07/24 11/07/24 History pantoprazole 40 mg tablet,delayed 40 mg PO AMHS 11/07/24 11/07/24 History release tramadol 50 mg tablet 50 mg PO Q8 PRN pain 11/07/24 11/07/24 History warfarin 5 mg tablet 5 - 10 mg PO QPM 11/07/24 11/07/24 History Past Med/Surg History Problem List (Updated 11/08/24 @ 01:29 by Remi Wild MD) CHF (congestive heart failure) Atrial fibrillation History of medication noncompliance (Acute) Hypertension (Acute) Rhinovirus infection (Acute) Gait disturbance Pressure ulcer Cerebral microvascular disease (Acute) Acute confusion (Acute) Acute hyperkalemia (Acute) Encephalopathy acute (Acute) Diverticulitis (Acute) Chronic back pain Glaucoma Medical History Mass of head of pancreas Carotid artery stenosis Hypertensive urgency Pneumonia CKD (chronic kidney disease) stage 3, GFR 30-59 ml/min HTN (hypertension) with goal to be determined On warfarin therapy Mitral stenosis Atrial fibrillation with RVR Upper GI bleed Acute blood loss anemia Aortic stenosis Chest tightness Hydronephrosis of right kidney Macrocytic anemia Current every day smoker On warfarin therapy Surgical History Status post hip replacement Status post knee replacement H/O mechanical aortic valve replacement Family History Brother Hypertension Heart disease Sister Hypertension Heart disease Mother Hypertension Heart disease Myocardial infarction Father Hypertension Heart disease Denies family history of Ovarian cancer Prostate cancer Breast cancer Lung cancer Colorectal cancer Stroke Social History Smoking Status: Current every day smoker Tobacco Type: Cigarettes Age Started Using Tobacco: 38; packs per day: 0.50; Cigarettes Per Day: 10; Second Hand Exposure: No; Do You Dip or Chew Tobacco: No; Hx Alcohol Use: No Hx Substance Use: No Preferred Language: Wallisian Communication Ability: Effective Visual Impairment: Limited Hearing Ability: Normal 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: No Beliefs That Will Affect Care: None marital status: / Current Living Situation: Alone Current Living Situation Comment: [employer] current occupational status: retired How many Children do You have: 4 Feels Safe at Home: Yes Childhood Exposure to Second-Hand Smoke: Yes Diet: low salt caffeine: Yes Dental Care, Regularly: No Physical Activity Frequency: Does not Exercise Seatbelt Use: always Sunscreen Use: No Assistive Devices: Walker Review of Systems Review of Systems: Review of systems is not obtainable due to patient decreased responsiveness Physical Exam Physical Exam: The patient is awake, mumbles to answers, and is mildly lethargic, normocephalic and atraumatic, lying in bed and in no acute distress. HEENT--PERRL, EOMI, mucous membranes and oropharynx normal. Neck--supple. No JVD. No bruits. Thyroid normal, trachea midline, no adenopathy. Heart--normal S1 and S2. No murmurs, rubs or gallops. Lungs--crackles at the bases bilaterally Abdomen--normal bowel sounds and soft. Nontender. Nondistended Extremities--1+ bilateral pretibial pitting edema. Dermatologic--normal skin turgor, normal color, no abnormal lymph nodes, no r alessandra. Neurologic--cranial nerves II through XII grossly intact. Rheumatologic--normal range of motion. Psychiatric--fatigued/lethargic. Results & Data Results & Data Vital Signs (Past 12 Hours) Vital Signs Temp Pulse Pulse Resp BP BP Pulse Ox 11/08/24 00:45 81 11/08/24 00:09 80 18 165/90 H 96 11/07/24 23:18 84 18 125/82 99 11/07/24 22:33 88 22 204/103 H 99 11/07/24 21:03 99 11/07/24 20:57 36.9 C 85 18 187/109 H 99 11/07/24 20:55 84 O2 Del Method 11/08/24 00:45 11/08/24 00:09 Room Air 11/07/24 23:18 Room Air 11/07/24 22:33 Room Air 11/07/24 21:03 Room Air 11/07/24 20:57 Room Air 11/07/24 20:55 Laboratory Results Laboratory Results WBC 5.28 K/ul (4.8-10.8) 11/07/24 21:56 RBC 4.06 M/uL (4.20-5.40) L 11/07/24 21:56 Hgb 13.6 g/dl (12.0-16.0) 11/07/24 21:56 Hct 43.4 % (37.0-47.0) 11/07/24 21:56 MCV 106.9 fL (80.0-100.0) H 11/07/24 21:56 MCH 33.5 pg (25.0-34.0) 11/07/24 21:56 MCHC 31.3 g/dL (32.0-36.0) L 11/07/24 21:56 RDW Std Deviation 59.2 fL (36.4-46.3) H 11/07/24 21:56 RDW Coeff of Xavier 14.9 % (11.5-14.5) H 11/07/24 21:56 Plt Count 206 K/uL (130-400) 11/07/24 21:56 MPV 9.5 fL (9.4-12.4) 11/07/24 21:56 Immature Gran % (Auto) 0.4 % 11/07/24 21:56 Neut % (Auto) 67.1 % 11/07/24 21:56 Lymph % (Auto) 18.4 % 11/07/24 21:56 [place] % (Auto) 8.1 % 11/07/24 21:56 Eos % (Auto) 5.1 % 11/07/24 21:56 Baso % (Auto) 0.9 % 11/07/24 21:56 Neut # (Auto) 3.54 K/uL (1.40-6.50) 11/07/24 21:56 Lymph # (Auto) 0.97 K/uL (1.20-3.40) L 11/07/24 21:56 [place] # (Auto) 0.43 K/uL (0.11-0.59) 11/07/24 21:56 Eos # (Auto) 0.27 K/uL (0.00-0.50) 11/07/24 21:56 Baso # (Auto) 0.05 K/uL (0.00-0.20) 11/07/24 21:56 Immature Gran # (Auto) 0.02 K/uL (0.01-0.20) 11/07/24 21:56 PT 10.7 Seconds (9.0-12.0) 11/07/24 21:57 INR 1.0 (0.9-1.1) 11/07/24 21:57 Sodium 138 mmol/L (136-145) 11/07/24 21:56 Potassium 4.0 mmol/L (3.5-5.1) 11/07/24 21:56 Chloride 109 mmol/L (98-107) H 11/07/24 21:56 Carbon Dioxide 19 mmol/L (21-32) L 11/07/24 21:56 Anion Gap 10 (3-11) 11/07/24 21:56 BUN 41 mg/dl (6-23) H 11/07/24 21:56 Creatinine 1.81 mg/dl (0.6-1.2) H 11/07/24 21:56 Est Cr Clr Drug Dosing 22.6 ml/min 11/07/24 21:56 eGFR 26.92 11/07/24 21:56 BUN/Creatinine Ratio 22.7 (10-20) H 11/07/24 21:56 Glucose 101 mg/dl (70-99(Fasting)) H 11/07/24 21:56 Calcium 9.6 mg/dl (8.6-10.3) 11/07/24 21:56 Magnesium 2.3 mg/dl (1.7-2.4) 11/07/24 21:56 Total Bilirubin 0.5 mg/dl (0.2-1.0) 11/07/24 21:56 AST 22 U/L (13-39) 11/07/24 21:56 ALT 13 U/L (7-52) 11/07/24 21:56 Alkaline Phosphatase 135 U/L (34-104) H 11/07/24 21:56 B-Natriuretic Peptide 181 pg/ml (0-100) H 11/07/24 21:56 Total Protein 8.2 gm/dl (6.0-8.3) 11/07/24 21:56 Albumin 4.3 gm/dl (3.4-5.0) 11/07/24 21:56 Globulin 3.9 gm/dl (2.5-4.0) 11/07/24 21:56 Albumin/Globulin Ratio 1.1 (0.9-2) 11/07/24 21:56 Adenovirus (PCR) Not Detected (NotDetected) 11/07/24 Unknown B. pertussis DNA (PCR) Not Detected (NotDetected) 11/07/24 Unknown B.parapertussis DNA PCR Not Detected (NotDetected) 11/07/24 Unknown C. pneumoniae DNA (PCR) Not Detected (NotDetected) 11/07/24 Unknown Coronavirus OC43 (PCR) Not Detected (NotDetected) 11/07/24 Unknown Coronavirus HKU1 (PCR) Not Detected (NotDetected) 11/07/24 Unknown Coronavirus 229E (PCR) Not Detected (NotDetected) 11/07/24 Unknown SARS-CoV-2 (PCR) Not Detected (NotDetected) 11/07/24 Unknown Coronavirus NL63 (PCR) Not Detected (NotDetected) 11/07/24 Unknown Human Metapneumovir PCR Not Detected (NotDetected) 11/07/24 Unknown Influenza Type A (PCR) Not Detected (NotDetected) 11/07/24 Unknown Influenza Type B (PCR) Not Detected (NotDetected) 11/07/24 Unknown M. pneumoniae (PCR) Not Detected (NotDetected) 11/07/24 Unknown Parainfluenza 1 (PCR) Not Detected (NotDetected) 11/07/24 Unknown Parainfluenza 2 (PCR) Not Detected (NotDetected) 11/07/24 Unknown Parainfluenza 3 (PCR) Not Detected (NotDetected) 11/07/24 Unknown Parainfluenza 4 (PCR) Not Detected (NotDetected) 11/07/24 Unknown RSV (PCR) Not Detected (NotDetected) 11/07/24 Unknown Entero/Rhino (PCR) Not Detected (NotDetected) 11/07/24 Unknown Impressions Chest X-Ray 11/07/24 21:28 Exam(s): XR CXR 1 VIEW EXAM: XR Chest, 1 View CLINICAL HISTORY: Reason for exam: illness. TECHNIQUE: Frontal view of the chest. COMPARISON: Prior chest x-ray from August 25, 2024. FINDINGS: Lungs: Pulmonary vascular congestion with mild pulmonary edema. No consolidation. Pleural space: Unremarkable. No pneumothorax. Heart: Moderate cardiomegaly. Mediastinum: Status post median sternotomy with fractured of the most caudal bladder. Normal mediastinal contour. Bones/joints: Advanced bilateral glenohumeral joint degenerative arthropathy. Diffuse osteopenia throughout the visualized bones. No acute fracture. IMPRESSION: Cardiomegaly with pulmonary vascular congestion and mild pulmonary edema. No consolidation or pleural effusion. Electronically signed by: Tran Llamas MD 11/08/24 01:00 AM Code Status & VTE Plan Code Status DNR/DNI VTE Prophylaxis Plan VTE Prophylaxis will be ordered: Yes PG Care Time/CCT Total # of Minutes Spent Total Time Spent with Patient: Total time spent is greater than 50% in coordination of care (as documented) at patient's floor/unit and/or counseling patient: Coding Level of Care Code 54197 INT INP/OBS CARE 3/75MIN Diagnoses CHF (congestive heart failure) I50.9 History of medication noncompliance Z91.148 Hypertension I10 Hypertension type: unspecified Acute confusion R41.0 On warfarin therapy Z79.01 Atrial fibrillation with RVR I48.91 Current every day smoker F17.200 (3) Hypertension Hypertension type: unspecified Qualified Code(s): I10 - Essential (primary) hypertension
--- NOTE | 2024-11-08 01:01 | XRay Report ---
Exam(s): XR CXR 1 VIEW EXAM: XR Chest, 1 View CLINICAL HISTORY: Reason for exam: illness. TECHNIQUE: Frontal view of the chest. COMPARISON: Prior chest x-ray from August 25, 2024. FINDINGS: Lungs: Pulmonary vascular congestion with mild pulmonary edema. No consolidation. Pleural space: Unremarkable. No pneumothorax. Heart: Moderate cardiomegaly. Mediastinum: Status post median sternotomy with fractured of the most caudal bladder. Normal mediastinal contour. Bones/joints: Advanced bilateral glenohumeral joint degenerative arthropathy. Diffuse osteopenia throughout the visualized bones. No acute fracture. IMPRESSION: Cardiomegaly with pulmonary vascular congestion and mild pulmonary edema. No consolidation or pleural effusion. Electronically signed by: Tran Llamas MD 11/08/24 01:00 AM
[2024-11-08] MEDS ORDERED: METOPROLOL TARTRATE 1 MG/ML VIAL IV PRN (01:41)
--- NOTE | 2024-11-08 01:47 | CT Scan Report ---
Exam(s): CT HEAD Without Contrast EXAM: CT Head Without Intravenous Contrast CLINICAL HISTORY: Reason for exam: headache. TECHNIQUE: Axial computed tomography images of the head/brain without intravenous contrast. CTDI is 36.9 mGy and DLP is 624.41 mGy-cm. Automated exposure control was utilized for the study. A dose lowering technique was utilized adhering to the principles of ALARA. COMPARISON: Prior head CT from August 25, 2024. FINDINGS: Brain: Unremarkable. No hemorrhage. Advanced nonspecific white matter changes. No edema. Ventricles: Moderate ventriculomegaly. Bones/joints: Unremarkable. No acute fracture. Soft tissues: Unremarkable. Sinuses: Unremarkable as visualized. No acute sinusitis. Mastoid air cells: Unremarkable as visualized. No mastoid effusion. IMPRESSION: No evidence of acute intracranial pathology. Electronically signed by: Tran Llamas MD 11/08/24 01:46 AM
--- NOTE | 2024-11-08 01:52 | CT Scan Report ---
Exam(s): CT C SPINE EXAM: CT Cervical Spine Without Intravenous Contrast CLINICAL HISTORY: Reason for exam: neck pain, no trauma. TECHNIQUE: Axial computed tomography images of the cervical spine without intravenous contrast. Automated exposure control was utilized for the study. A dose lowering technique was utilized adhering to the principles of ALARA. COMPARISON: Prior CT angiogram of the neck from August 25, 2024. FINDINGS: Vertebrae: Moderate generalized curved to the right and normal cervical lordosis. No acute fracture. Discs/spinal canal/neural foramina: No acute findings. No spinal canal stenosis. Soft tissues: Small bilateral thyroid nodules. Left carotid stent. IMPRESSION: No evidence of acute cervical spine pathology. Electronically signed by: Tran Llamas MD 11/08/24 01:50 AM
[2024-11-08] MEDS: METOPROLOL TARTRATE 1 MG/ML VIAL IV STA (01:58)
[2024-11-08] MEDS: ENOXAPARIN 80 MG/0.8 ML SYR SQ SCH ×2 (02:02→03:25)
--- NOTE | 2024-11-08 02:02 | Emergency Department Note ---
Impression & Plan Bilateral edema of lower extremity, CHF (congestive heart failure), Noncompliance with medications, Headache, Malaise ED Provider Note NAME: CASTILLO CHAMORRO AGE: 84 SEX: Female INFORMANT: Patient and family ED PROVIDER(S): Horace Schmidt MD CHIEF COMPLAINT: Lower extremity swelling and malaise PLAN: Disposition: Admitted Outpatient prescription management: none Referral: None MEDICAL DECISION MAKING: Patient presented and workup was initiated. She did have lower extremity swelling. She was moderately hypertensive. There were concerns about medication noncompliance. Patient had Nitropaste and Lasix applied. She had an unremarkable CBC. Chemistry panel and cardiac markers revealed an elevation of her BNP. ECG did not show any acute ischemia. Mild CHF noted on chest x-ray. Patient was treated with Tylenol. CT imaging of the head was negative. CT imaging of the cervical spine did not reveal any acute pathology. INR was subtherapeutic. BioFire testing negative. Consultation was made with Dr. Remi Wild of the [facility] service. Patient was evaluated in the ER for further management. Care/management discussed with: international marketing manager Level of care consideration(s): After review of the information above and other included data, I feel the patient requires escalation of care to admission Triage Nursing notes: reviewed and agree them. Vital Signs: reviewed and remarkable for significant hypertension Additional History obtained from: Family Chronic Medical/Social Conditions affecting care: CHF, anticoagulation Prior/ Outside/ External records reviewed: none Differential Diagnosis: Infection, dehydration, metabolic abnormality, hypo/hyperglycemia, electrolyte disturbance, anemia, hypoxia, cardiac sources, intracerebral event, toxicologic, neurologic, as well as other pathologies. Diagnostics, independently interpreted by me: EC-lead ECG read sinus rhythm first-degree block 81 bpm. Right bundle branch block. No ST elevation. Cardiac Monitoring: Cardiac monitoring ordered by me: The patient was placed on continuous cardiac monitoring and observed. It revealed a normal sinus rhythm at 75 beats per minute without ectopy or evidence of dysrhythmia. Medical decision rules: none Imaging studies: Chest x-ray reveals findings consistent with CHF. HPI: 84 year old Female arrives for evaluation of lower extremity swelling. This started several days ago and is persisting. The patient also notes the following associated symptoms, general malaise, fatigue and weakness, headache, shortness of breath, and some discomfort in the right side of her neck. The patient has found no relieving factors. Current pain is rated as 7/10. Patient notes she has missed several days of her diuretic. Family notes the patient's INR was subtherapeutic this week. Pt denies LOC, fevers, chills, diaphoresis, visual changes, chest pain nausea, vomiting, abdominal pain, back pain, melena, hematochezia, urinary symptoms, rash, or other complaints. PAST MEDICAL HISTORY: See Below, CHF PAST SURGICAL HISTORY: See Below, SOCIAL HISTORY: See Below, smoker HOME MEDICATIONS: See Below ALLERGIES: See Below VITALS: See Below PHYSICAL EXAMINATION: GENERAL: Awake, alert, uncomfortable-appearing, in no distress HENT: Normocephalic, atraumatic. Oropharynx unremarkable. EYES: Normal conjunctiva. Sclera non-icteric. NECK: Inspection normal. Right paraspinal muscles are tender. Supple. No nuchal rigidity. FROM. No masses. RESPIRATORY: Clear to auscultation. No wheezes. No rales. Normal respiratory effort. CARDIAC: Normal rate. Normal rhythm. No murmurs. No rubs. Extremities warm and well perfused. Pulses equal. No JVD. GI: Soft, non-distended. No tenderness to palpation. No rebound or guarding. No masses. RECTAL: Deferred. MUSCULOSKELETAL: Atraumatic. Chest examination reveals no tenderness. The back is symmetrical on inspection without obvious abnormality. There is no CVA tenderness to palpation. No joint edema. LOWER EXTREMITIES: Calves are equal size bilaterally and non-tender. 2+ edema. No discoloration. NEURO: Normal sensorium. No sensory or motor deficits noted. SKIN: No rash or jaundice noted. PROCEDURES: none CRITICAL CARE: none OBSERVATION NOTE: none Past Med/Surg History Problem List (Updated 11/08/24 @ 02:07 by Horace Schmidt MD) Malaise (Acute) Headache (Acute) Noncompliance with medications (Acute) Bilateral edema of lower extremity (Acute) CHF (congestive heart failure) (Acute) Atrial fibrillation History of medication noncompliance (Acute) Hypertension (Acute) Rhinovirus infection (Acute) Gait disturbance Pressure ulcer Cerebral microvascular disease (Acute) Acute confusion (Acute) Acute hyperkalemia (Acute) Encephalopathy acute (Acute) Diverticulitis (Acute) Chronic back pain Glaucoma Medical History Mass of head of pancreas Carotid artery stenosis Hypertensive urgency Pneumonia CKD (chronic kidney disease) stage 3, GFR 30-59 ml/min HTN (hypertension) with goal to be determined On warfarin therapy Mitral stenosis Atrial fibrillation with RVR Upper GI bleed Acute blood loss anemia Aortic stenosis Chest tightness Hydronephrosis of right kidney Macrocytic anemia Current every day smoker On warfarin therapy Surgical History Status post hip replacement Status post knee replacement H/O mechanical aortic valve replacement Family History Brother Hypertension Heart disease Sister Hypertension Heart disease Mother Hypertension Heart disease Myocardial infarction Father Hypertension Heart disease Denies family history of Ovarian cancer Prostate cancer Breast cancer Lung cancer Colorectal cancer Stroke Social History Smoking Status: Current every day smoker Tobacco Type: Cigarettes Age Started Using Tobacco: 38; packs per day: 0.50; Cigarettes Per Day: 10; Second Hand Exposure: No; Do You Dip or Chew Tobacco: No; Hx Alcohol Use: No Hx Substance Use: No Preferred Language: Latvian Communication Ability: Effective Visual Impairment: Limited Hearing Ability: Normal Manufacturing Group 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 Required: No Beliefs That Will Affect Care: None marital status: / Current Living Situation: Alone Current Living Situation Comment: [employer] current occupational status: retired How many Children do You have: 4 Feels Safe at Home: Yes Childhood Exposure to Second-Hand Smoke: Yes Diet: low salt caffeine: Yes Dental Care, Regularly: No Physical Activity Frequency: Does not Exercise Seatbelt Use: always Sunscreen Use: No Assistive Devices: Walker Allergies Allergies Allergy/AdvReac Type Severity Reaction Status Date / Time No Known Allergies Allergy Verified 10/17/24 13:02 Home Meds Home Medications Medication Instructions Recorded Confirmed latanoprost 0.005 % eye drops 1 drp OPB PM 07/31/23 11/07/24 brimonidine 0.2 % eye drops 1 drp OPB TID 03/18/24 11/07/24 dorzolamide 2 % eye drops 1 drp OPB BID 03/18/24 11/07/24 nitroglycerin 0.4 mg sublingual 0.4 mg sublingual DAILY PRN Chest 09/17/24 11/07/24 tablet Pain amlodipine 10 mg tablet 10 mg PO QAM 11/07/24 11/07/24 furosemide 20 mg tablet 20 mg PO 3XWK 11/07/24 11/07/24 lisinopril 10 mg tablet 10 mg PO QAM 11/07/24 11/07/24 pantoprazole 40 mg tablet,delayed 40 mg PO AMHS 11/07/24 11/07/24 release tramadol 50 mg tablet 50 mg PO Q8 PRN pain 11/07/24 11/07/24 warfarin 5 mg tablet 5 - 10 mg PO QPM 11/07/24 11/07/24 Previous Rx's Medication Instructions Recorded Shower Chair #1 ea 11/20/23 lidocaine 5 % topical patch 1 patch transdermal QAM #10 ea 08/29/24 atorvastatin 40 mg tablet 40 mg PO QAM #90 tabs 09/17/24 metoprolol succinate 25 mg 12.5 mg (1/2 x 25 mg) PO QAM #45 09/17/24 tablet,extended release 24 hr tabs gabapentin 100 mg capsule 100 mg PO BID PRN pain #180 caps 10/06/24 famotidine 20 mg tablet 20 mg PO DAILY #90 tabs 10/15/24 hydralazine 10 mg tablet 10 mg PO TID #270 tabs 10/15/24 benzonatate 200 mg capsule 200 mg PO TID PRN cough #30 caps 10/17/24 Results & Data (ED) Vital Signs Vital Signs - 24 hr 11/07/24 20:55 11/07/24 20:57 11/07/24 21:03 Temperature 36.9 C Temperature Source Oral Pulse Rate 84 85 Pulse Rate [Apical] Respiratory Rate 18 Respiratory Effort / Characteristics Non-Labored Spontaneous Respiratory Depth Normal Blood Pressure 187/109 H Blood Pressure [Right Arm] Blood Pressure Mean 135 Blood Pressure Mean [Right Arm] Pulse Oximetry 99 99 Oxygen Delivery Method Room Air Room Air Sepsis Recent Fever Within 48 Hours No Sepsis New/Unexplained Change in Mental Status No Sepsis Action Taken by Nursing No Action Required 11/07/24 22:33 11/07/24 23:18 11/08/24 00:09 Temperature Temperature Source Pulse Rate Pulse Rate [Apical] 88 84 80 Respiratory Rate 22 18 18 Respiratory Effort / Characteristics Non-Labored Spontaneous Non-Labored Spontaneous Non-Labored Spontaneous Respiratory Depth Normal Normal Normal Blood Pressure Blood Pressure [Right Arm] 204/103 H 125/82 165/90 H Blood Pressure Mean Blood Pressure Mean [Right Arm] 136 96 115 Pulse Oximetry 99 99 96 Oxygen Delivery Method Room Air Room Air Room Air Sepsis Recent Fever Within 48 Hours Sepsis New/Unexplained Change in Mental Status Sepsis Action Taken by Nursing 11/08/24 00:45 11/08/24 01:34 11/08/24 01:41 Temperature Temperature Source Pulse Rate 81 Pulse Rate [Apical] 86 88 Respiratory Rate 18 18 Respiratory Effort / Characteristics Non-Labored Spontaneous Non-Labored Spontaneous Respiratory Depth Normal Normal Blood Pressure Blood Pressure [Right Arm] 209/111 H 187/90 H Blood Pressure Mean Blood Pressure Mean [Right Arm] 143 122 Pulse Oximetry 97 98 Oxygen Delivery Method Room Air Room Air Sepsis Recent Fever Within 48 Hours Sepsis New/Unexplained Change in Mental Status Sepsis Action Taken by Nursing Laboratory Data 11/07/24 21:56 11/07/24 21:56 Lab Results 11/07/24 11/07/24 11/07/24 Range/Units 21:56 21:57 Unknown WBC 5.28 (4.8-10.8) K/ul RBC 4.06 L (4.20-5.40) M/uL Hgb 13.6 (12.0-16.0) g/dl Hct 43.4 (37.0-47.0) % MCV 106.9 H (80.0-100.0) fL MCH 33.5 (25.0-34.0) pg MCHC 31.3 L (32.0-36.0) g/dL RDW Std Deviation 59.2 H (36.4-46.3) fL RDW Coeff of Xavier 14.9 H (11.5-14.5) % Plt Count 206 (130-400) K/uL MPV 9.5 (9.4-12.4) fL Immature Gran % (Auto) 0.4 % Neut % (Auto) 67.1 % Lymph % (Auto) 18.4 % Zapata % (Auto) 8.1 % Eos % (Auto) 5.1 % Baso % (Auto) 0.9 % Neut # (Auto) 3.54 (1.40-6.50) K/uL Lymph # (Auto) 0.97 L (1.20-3.40) K/uL Zapata # (Auto) 0.43 (0.11-0.59) K/uL Eos # (Auto) 0.27 (0.00-0.50) K/uL Baso # (Auto) 0.05 (0.00-0.20) K/uL Immature Gran # (Auto) 0.02 (0.01-0.20) K/uL PT 10.7 (9.0-12.0) Seconds INR 1.0 (0.9-1.1) Sodium 138 (136-145) mmol/L Potassium 4.0 (3.5-5.1) mmol/L Chloride 109 H (98-107) mmol/L Carbon Dioxide 19 L (21-32) mmol/L Anion Gap 10 (3-11) BUN 41 H (6-23) mg/dl Creatinine 1.81 H (0.6-1.2) mg/dl Est Cr Clr Drug Dosing 22.6 ml/min eGFR 26.92 BUN/Creatinine Ratio 22.7 H (10-20) Glucose 101 H (70-99(Fasting)) mg/dl Calcium 9.6 (8.6-10.3) mg/dl Magnesium 2.3 (1.7-2.4) mg/dl Total Bilirubin 0.5 (0.2-1.0) mg/dl AST 22 (13-39) U/L ALT 13 (7-52) U/L Alkaline Phosphatase 135 H (34-104) U/L B-Natriuretic Peptide 181 H (0-100) pg/ml Total Protein 8.2 (6.0-8.3) gm/dl Albumin 4.3 (3.4-5.0) gm/dl Globulin 3.9 (2.5-4.0) gm/dl Albumin/Globulin Ratio 1.1 (0.9-2) Adenovirus (PCR) Not Detected (NotDetected) B. pertussis DNA (PCR) Not Detected (NotDetected) B.parapertussis DNA PCR Not Detected (NotDetected) C. pneumoniae DNA (PCR) Not Detected (NotDetected) Coronavirus OC43 (PCR) Not Detected (NotDetected) Coronavirus HKU1 (PCR) Not Detected (NotDetected) Coronavirus 229E (PCR) Not Detected (NotDetected) SARS-CoV-2 (PCR) Not Detected (NotDetected) Coronavirus NL63 (PCR) Not Detected (NotDetected) Human Metapneumovir PCR Not Detected (NotDetected) Influenza Type A (PCR) Not Detected (NotDetected) Influenza Type B (PCR) Not Detected (NotDetected) M. pneumoniae (PCR) Not Detected (NotDetected) Parainfluenza 1 (PCR) Not Detected (NotDetected) Parainfluenza 2 (PCR) Not Detected (NotDetected) Parainfluenza 3 (PCR) Not Detected (NotDetected) Parainfluenza 4 (PCR) Not Detected (NotDetected) RSV (PCR) Not Detected (NotDetected) Entero/Rhino (PCR) Not Detected (NotDetected) Administered Medications Discontinued Medications Acetaminophen (Acetaminophen 500 Mg Tab) 1,000 mg PO NOW STA Stop: 11/07/24 21:21 Last Admin: 11/07/24 21:47 Dose: 1,000 mg Documented By: EMI Furosemide (Furosemide Inj 20 Mg/2 Ml Vial) 20 mg IV ONE ONE Stop: 11/07/24 22:19 Last Admin: 11/07/24 22:25 Dose: 20 mg Documented By: DAWNA Nitroglycerin (Nitroglycerin 2% Ointment 30gm Tube) 0.5 inch EXT NOW STA Stop: 11/07/24 22:19 Last Admin: 11/07/24 22:24 Dose: 0.5 inch Documented By: DAWNA Imaging Data Radiologist's Impression: Cervical Spine CT 11/07/24 21:20 Exam(s): CT C SPINE EXAM: CT Cervical Spine Without Intravenous Contrast CLINICAL HISTORY: Reason for exam: neck pain, no trauma. TECHNIQUE: Axial computed tomography images of the cervical spine without intravenous contrast. Automated exposure control was utilized for the study. A dose lowering technique was utilized adhering to the principles of ALARA. COMPARISON: Prior CT angiogram of the neck from August 25, 2024. FINDINGS: Vertebrae: Moderate generalized curved to the right and normal cervical lordosis. No acute fracture. Discs/spinal canal/neural foramina: No acute findings. No spinal canal stenosis. Soft tissues: Small bilateral thyroid nodules. Left carotid stent. IMPRESSION: No evidence of acute cervical spine pathology. Electronically signed by: Tran Llamas MD 11/08/24 01:[address] 11/07/24 21:20 Exam(s): CT HEAD Without Contrast EXAM: CT Head Without Intravenous Contrast CLINICAL HISTORY: Reason for exam: headache. TECHNIQUE: Axial computed tomography images of the head/brain without intravenous contrast. CTDI is 36.9 mGy and DLP is 624.41 mGy-cm. Automated exposure control was utilized for the study. A dose lowering technique was utilized adhering to the principles of ALARA. COMPARISON: Prior head CT from August 25, 2024. FINDINGS: Brain: Unremarkable. No hemorrhage. Advanced nonspecific white matter changes. No edema. Ventricles: Moderate ventriculomegaly. Bones/joints: Unremarkable. No acute fracture. Soft tissues: Unremarkable. Sinuses: Unremarkable as visualized. No acute sinusitis. Mastoid air cells: Unremarkable as visualized. No mastoid effusion. IMPRESSION: No evidence of acute intracranial pathology. Electronically signed by: Tran Llamas MD 11/08/24 01:46 AM Chest X-Ray 11/07/24 21:28 Exam(s): XR CXR 1 VIEW EXAM: XR Chest, 1 View CLINICAL HISTORY: Reason for exam: illness. TECHNIQUE: Frontal view of the chest. COMPARISON: Prior chest x-ray from August 25, 2024. FINDINGS: Lungs: Pulmonary vascular congestion with mild pulmonary edema. No consolidation. Pleural space: Unremarkable. No pneumothorax. Heart: Moderate cardiomegaly. Mediastinum: Status post median sternotomy with fractured of the most caudal bladder. Normal mediastinal contour. Bones/joints: Advanced bilateral glenohumeral joint degenerative arthropathy. Diffuse osteopenia throughout the visualized bones. No acute fracture. IMPRESSION: Cardiomegaly with pulmonary vascular congestion and mild pulmonary edema. No consolidation or pleural effusion. Electronically signed by: Tran Llamas MD 11/08/24 01:00 AM Discharge Plan Visit Data Chief Complaint: Swelling/Edema to Extremity Stated Complaint: SWELLING/PAIN TO BILATERAL LEGS ED Provider: Horace Schmidt Discharge Problem: Bilateral edema of lower extremity, CHF (congestive heart failure), Noncompliance with medications, Headache, Malaise Patient Disposition: Admitted As Inpatient Condition: Fair Prescriptions Prescriptions: No Action gabapentin 100 mg capsule 100 mg PO BID PRN (Reason: pain) Qty: 180 3RF hydralazine 10 mg tablet 10 mg PO TID Qty: 270 3RF famotidine 20 mg tablet 20 mg PO DAILY Qty: 90 3RF nitroglycerin 0.4 mg tablet, sublingual 0.4 mg sublingual DAILY PRN (Reason: Chest Pain) atorvastatin 40 mg tablet 40 mg PO QAM Qty: 90 3RF metoprolol succinate 25 mg tablet extended release 24 hr 12.5 mg PO QAM Qty: 45 3RF (DME) Shower Chair Misc See Rx Instructions .Route Qty: 1 0RF Rx Instructions: As directed, bench that extends from outside to inside of tub benzonatate 200 mg capsule 200 mg PO TID PRN (Reason: cough) Qty: 30 0RF latanoprost 0.005 % Drops 1 drp OPB PM Rx Instructions: both eyes dorzolamide 2 % drops 1 drp OPB BID brimonidine 0.2 % drops 1 drp OPB TID lidocaine 5 % Adhesive Patch,Medicated 1 patch transdermal QAM Qty: 10 0RF warfarin 5 mg tablet 5 - 10 mg PO QPM Rx Instructions: as directed by anticoagulation clinic pantoprazole 40 mg tablet,delayed release (DR/EC) 40 mg PO AMHS lisinopril 10 mg tablet 10 mg PO QAM furosemide 20 mg tablet 20 mg PO 3XWK Rx Instructions: sunday,sunday,sunday mornings amlodipine 10 mg tablet 10 mg PO QAM tramadol 50 mg tablet 50 mg PO Q8 PRN (Reason: pain) Referrals Referrals: Song Pritchard CRNP [Primary Care Provider] -
[2024-11-08] MEDS ORDERED: NITROGLYCERIN SL 0.4 MG/TAB TAB SL PRN (02:09)
[2024-11-08] MEDS ORDERED: ONDANSETRON INJ 2 MG/ML 2 ML VIAL IV PRN (02:09)
[2024-11-08] MEDS: WARFARIN SOD 10 MG TAB PO SCH (03:23)
[2024-11-08] MEDS: ACETAMINOPHEN 325 MG TAB PO PRN (04:58)
[2024-11-08 05:24] LABS: INR 1.0 (0.9-1.1); Prothrombin Time 10.5 Seconds (9.0-12.0)
[2024-11-08 05:33] LABS: Anion Gap 9 (3-11); Blood Urea Nitrogen 39 mg/dl (6-23); Calcium 9.6 mg/dl (8.6-10.3); Carbon Dioxide 22 mmol/L (21-32); Chloride 107 mmol/L (98-107); Creatinine Clr Calc Pharmacy 22.7 ml/min; Glucose 85 mg/dl (70-99(Fasting)); Sodium 138 mmol/L (136-145)
[2024-11-08 05:43] LABS: Hematocrit (blood only) 42.8 % (37.0-47.0); Hemoglobin 13.8 g/dl (12.0-16.0); Immature Granulocytes # (auto) 0.02 K/uL (0.01-0.20); Immature Granulocytes % (auto) 0.4 %; Mean Corpuscular Hemoglobin 34.4 pg (25.0-34.0); Mean Corpuscular Volume 106.7 fL (80.0-100.0); Platelet Count 161 K/uL (130-400); RDW Standard Deviation 58.3 fL (36.4-46.3); Red Blood Count 4.01 M/uL (4.20-5.40); White Blood Count 4.94 K/ul (4.8-10.8)
[2024-11-08] MEDS: ATORVASTATIN 40 MG TAB PO SCH (08:21)
[2024-11-08] MEDS: hydrALAZINE 10 MG TAB PO SCH (08:21)
[2024-11-08] MEDS: LIDOCAINE 5% 1 PATCH TD SCH (08:21)
[2024-11-08] MEDS: METOPROLOL SUCC 25MG EXT REL TAB PO SCH (08:22)
[2024-11-08] MEDS: DORZOLAMIDE HCL 2% OPH SOLN 10 ML BTL OPB SCH (08:22)
[2024-11-08] MEDS: BRIMONIDINE TARTRATE 0.2% 5ML OPB SCH (08:23)
[2024-11-08] MEDS: FAMOTIDINE 20 MG TAB PO SCH (08:25)
[2024-11-08 08:47] LABS: Appearance Urine Clear (Clear); Bacteria Urine Automated None Seen (None Seen); Cast Urine Automated 0-2 /lpf (0-2); Epithelial Cell Urine Auto 0-2 /hpf (0-2); Glucose Urine UA Negative (Negative); RBC Urine Automated 0-2 /hpf (0-2); WBC Urine Automated 0-5 /hpf (0-5)
[2024-11-08] MEDS: DICLOFENAC SOD 1% GEL 100 GM TUBE EXT SCH (10:08)
--- NOTE | 2024-11-08 10:22 | Hospitalist Progress Note ---
Date of Service November 08, 2024 Assessment & Plan (1) Heart failure with preserved ejection fraction: (2) Acute exacerbation of chronic heart failure: (3) Chronic anticoagulation: (4) Status post mechanical aortic valve replacement: (5) Torticollis, acquired: Plan In summary this is an 84-year-old female admitted for acute on chronic heart failure exacerbation most likely consequential of medication nonadherence. #Acute on chronic heart failure exacerbation With regard to the patient's heart failure exacerbation; they are not requiring oxygen supplementation at this time though they are exhibiting significant symptomatology with leg heaviness, edema resulting in inability to effectively ambulate, orthopnea; BNP at admission was 181; the patient was administered furosemide 20 mg IV one-time, intake and output has not yet been charted though at the time of my evaluation a pure wick catheter had collected approximately 300 mL of urine Pending TTE Measure intake and output every shift Nursing to contact attending physician if urinary output is less than 0.5 mL/kg/h Administer bumetanide 1 mg IV twice daily Follow daily renal function panel and magnesium during active diuresis #Subtherapeutic INR in the setting of mechanical aortic valve with goal INR 2.5- 3.5 Consequential of nonadherence per the patient's report, specifically stating a refill has not yet been obtained; dietary and medication changes were reviewed, none of which are likely interfering with warfarin absorption or metabolism; may be consequential of intestinal wall edema in the setting of their heart failure exacerbation, but unlikely as the patient describes they have been without this medication for at minimum one week Resume home warfarin 10 mg p.o. daily Reassess INR on 11/10 #Torticollis, acquired Likely consequence of chronic positioning at home due to decreased activity in the setting of the progressive heart failure exacerbation; discussed with nursing staff frequent repositioning such that the patient is placed in the passive leftward cervical rotation and sidebending position to facilitate passive stretch Start acetaminophen 1000 mg p.o. every 8 hours Start diclofenac sodium 2 g external application every 6 hours Avoiding steroids in the setting of a chronic strain as well as there sodium retention which may complicate the patient's heart failure management as detailed above Admission and Anticipated Discharge Date Admission Date: November 08, 2024 Anticipated date of discharge: 11/11/24 Subjective Ms. Garcia is an 84-year-old female whose active medical conditions include heart failure with preserved ejection fraction in the setting of atrial fibrillation status post aortic valve replacement, chronic osteoarthritic back pain among other chronic medical conditions who was admitted to [facility] on 11/07 due to an acute exacerbation of their chronic heart failure. There were no acute overnight events. The patient this morning does endorse significant neck discomfort which is acutely exacerbated from the chronic condition, gesturing to the right posterior neck; they cannot recall specific injury that precipitated this discomfort. They describe a significant heaviness in her legs that has been progressive over the past week; they do endorse they have not been adherent with their furosemide due to difficulty getting up to go to the bathroom frequently in the hours after taking it. They further endorse they have not been able to take their warfarin as they have requested a refill per their report without it being supplied, the patient cannot recall when they called for this refill nor when they last took their medication. Review of Systems Review of Systems: Constitutional: endorses fatigue; denies fevers, chills Cardiovascular: endorses progressive increasing lower extremity edema over the past 7 days prior to discharge, orthopnea progressive over the past 72 hours; denies angina, palpitations, syncope Pulmonary: denies cough, dyspnea on exertion, pleuritic chest pain Gastrointestinal: endorses mild nausea; denies nausea, emesis, dysphagia, dyspepsia, abdominal distension, constipation, diarrhea Genitourinary: denies dysuria, hematuria, urinary incontinence Neurologic: denies focal weakness, paresthesias or numbness, vision changes or diplopia, ataxia Musculoskeletal: endorses right posterior neck pain as described in HPI; denies additional arthralgias, progressive weakness, recent falls Integumentary: denies new or developing rashes or lesions Physical Exam Physical Exam: General: Adult female in no acute distress Vital Signs: Reviewed HEENT: Normocephalic, atraumatic; pupils equally reactive to light, extraocular motions intact; moist mucous membranes Neck: no palpable lymphadenopathy; hepatojugular reflux is noted to approximately 3 cm cephalad of the right clavicular line Pulmonary: symmetric chest wall excursion, diminished air movement in the bases bilaterally with associated fine crackles, remaining lung ge are clear to auscultation Cardiovascular: Regular rate and rhythm with no murmurs, rubs, or gallops; S1 and S2 normal; bilateral radial and posterior tibial pulses 2+; 1+ pitting bilateral lower extremity edema distal of the knee Gastrointestinal: soft, nondistended Musculoskeletal: the right cephalad border of the trapezius from the base of the skull caudally is hypertonic, ropey in consistency, cool to touch; the pat ient, when placed in neutral cervical spine position passively rotates and side bends to the right with significant discomfort with active as well as passive leftward cervical rotation and sidebending Neurologic: CN II through XII grossly intact Results & Data Results & Data Vital Signs (Past 12 Hours) Vital Signs Pulse Pulse Resp BP BP Pulse Ox Pulse Ox 11/08/24 08:20 77 13 160/82 H 100 11/08/24 07:14 81 11/08/24 06:30 73 12 149/82 H 99 11/08/24 05:31 70 20 158/94 H 98 11/08/24 05:03 76 17 98 11/08/24 04:07 69 194/101 H 97 11/08/24 04:02 66 13 97 11/08/24 03:37 99 11/08/24 03:36 72 12 177/108 H 99 11/08/24 02:13 65 173/99 H 11/08/24 02:04 71 15 189/111 H 97 11/08/24 01:58 75 164/114 H 11/08/24 01:41 88 18 187/90 H 98 11/08/24 01:34 86 18 209/111 H 97 11/08/24 00:45 81 11/08/24 00:09 80 18 165/90 H 96 11/07/24 23:18 84 18 125/82 99 11/07/24 22:33 88 22 204/103 H 99 O2 Del Method O2 Del Method 11/08/24 08:20 Room Air 11/08/24 07:14 11/08/24 06:30 Room Air 11/08/24 05:31 Room Air 11/08/24 05:03 Room Air 11/08/24 04:07 Room Air 11/08/24 04:02 Room Air 11/08/24 03:37 Room Air 11/08/24 03:36 Room Air 11/08/24 02:13 11/08/24 02:04 Room Air 11/08/24 01:58 11/08/24 01:41 Room Air 11/08/24 01:34 Room Air 11/08/24 00:45 11/08/24 00:09 Room Air 11/07/24 23:18 Room Air 11/07/24 22:33 Room Air PG Care Time/CCT Total # of Minutes Spent Total Time Spent with Patient: Total time spent is greater than 50% in coordination of care (as documented) at patient's floor/unit and/or counseling patient: Coding Level of Care Code 57020 SUB INP/OBS CARE 3/50MIN History Detailed Exam Detailed Medical Decision Making Moderate Complexity Diagnoses Acute on chronic heart failure with preserved ejection fraction (HFpEF) I50.33 Heart failure chronicity: acute on chronic Acute exacerbation of chronic heart failure I50.9 Chronic anticoagulation Z79.01 Status post mechanical aortic valve replacement Z95.2 Torticollis, acquired M43.6 (1) Heart failure with preserved ejection fraction Heart failure chronicity: acute on chronic Qualified Code(s): I50.33 - Acute on chronic diastolic (congestive) heart failure
--- NOTE | 2024-11-08 12:09 | XCELERA ---
[id number] [id number]
--- NOTE | 2024-11-08 12:10 | Electrocardiogram Report ---
Test Reason : Blood Pressure : */* mmHG Vent. Rate : 81 BPM Atrial Rate : 81 BPM P-R Int : 244 ms QRS Dur : 156 ms QT Int : 436 ms P-R-T Axes : 84 37 20 degrees QTcB Int : 506 ms Sinus rhythm with 1st degree A-V block Right bundle branch block Abnormal ECG When compared with ECG of 23-Sep-2024 11:46, No significant change was found Confirmed by Malcolm Freire ([id number] on 11/08/2024 12:10:22 PM Referred By: REFERRED SELF Confirmed By: Malcolm Freire
[2024-11-08] MEDS: BUMETANIDE 1 MG in SYRINGE 0 ML IV SCH (16:02)
[2024-11-08] MEDS: HEPARIN 25000 UNIT/500 ML D5W 25,000 UNITS/500 ML BAG IV SCH (18:16)
[2024-11-08] MEDS: Heparin IV Adult Wt-Based Standard *NO* INITIAL Bolus Protocol IV STA (18:17)
[2024-11-08 18:42] LABS: Hematocrit (blood only) 42.3 % (37.0-47.0); Hemoglobin 13.2 g/dl (12.0-16.0); Immature Granulocytes # (auto) 0.01 K/uL (0.01-0.20); Immature Granulocytes % (auto) 0.2 %; Mean Corpuscular Hemoglobin 33.3 pg (25.0-34.0); Mean Corpuscular Volume 106.8 fL (80.0-100.0); Platelet Count 194 K/uL (130-400); RDW Standard Deviation 58.8 fL (36.4-46.3); Red Blood Count 3.96 M/uL (4.20-5.40); White Blood Count 4.56 K/ul (4.8-10.8)
[2024-11-08 19:23] LABS: INR 1.1 (0.9-1.1); Partial Thromboplastin Time 26 Seconds (21-31); Prothrombin Time 11.4 Seconds (9.0-12.0)
[2024-11-08] MEDS: LATANOPROST 0.005% OP SOLN 2.5 ML BTL OPB SCH (20:47)
[2024-11-08] MEDS: REMOVE LIDODERM PATCH SCH (20:50)
[2024-11-09 00:55] LABS: ANTI-Xa, UFH(UnfractionatedHep 0.66 IU/ml (0.3-0.7)
[2024-11-09] MEDS: MELATONIN 3 MG TAB PO PRN (00:59)
[2024-11-09 07:04] LABS: ANTI-Xa, UFH(UnfractionatedHep 1.04 IU/ml (0.3-0.7)
[2024-11-09 07:12] LABS: Anion Gap 11.0 (3-11); Blood Urea Nitrogen 42.0 mg/dl (6-23); Calcium 9.4 mg/dl (8.6-10.3); Carbon Dioxide 20.0 mmol/L (21-32); Chloride 109.0 mmol/L (98-107); Creatinine Clr Calc Pharmacy 22.4 ml/min; Glucose 88.0 mg/dl (70-99(Fasting)); Magnesium 2.2 mg/dl (1.7-2.4); Potassium 3.9 mmol/L (3.5-5.1); Sodium 140.0 mmol/L (136-145)
--- NOTE | 2024-11-09 08:49 | Hospitalist Progress Note ---
Date of Service November 09, 2024 Assessment & Plan (1) Left ventricular outflow obstruction: (2) Acute exacerbation of chronic heart failure: (3) Chronic anticoagulation: (4) Status post mechanical aortic valve replacement: (5) Torticollis, acquired: Plan In summary this is an 84-year-old female admitted for acute on chronic heart failure exacerbation, found to have a left ventricular outflow abnormality with poor visualization of their mechanical aortic valve with noted abnormal transvalvular gradients. #Acute on chronic heart failure exacerbation // Left ventricular outflow obstruction With regard to the patient's heart failure exacerbation; TTE on 11/08 revealed Findings consistent with left ventricular outflow obstruction with an abnormal transvalvular aortic valve gradient, there ejection fraction has not significantly changed from previous TTE obtained 05/2024 of 65 to 70%, though it is noted that this is hyperdynamic; current urine output rate of 0.61 mL/kg/h Continue heparin gtt Measure intake and output every shift Nursing to contact attending physician if urinary output is less than 0.5 mL/kg/h Continue bumetanide 1 mg IV twice daily; may need to slow diuresis in the setting of left ventricular outflow obstruction to avoid diminished preload, pending cardiology recommendations Follow daily renal function panel and magnesium during active diuresis Cardiology consulted #Subtherapeutic INR in the setting of mechanical aortic valve with goal INR 2.5- 3.5 Consequential of nonadherence per the patient's report, specifically stating a refill has not yet been obtained; dietary and medication changes were reviewed, none of which are likely interfering with warfarin absorption or metabolism; may be consequential of intestinal wall edema in the setting of their heart failure exacerbation, but unlikely as the patient describes they have been without this medication for at minimum one week Resume home warfarin 10 mg p.o. daily Continue heparin GTT Reassess INR on 11/10 #Torticollis, acquired Likely consequence of chronic positioning at home due to decreased activity in the setting of the progressive heart failure exacerbation; discussed with nursing staff frequent repositioning such that the patient is placed in the passive leftward cervical rotation and sidebending position to facilitate passive stretch Continue acetaminophen 1000 mg p.o. every 8 hours Continue diclofenac sodium 2 g external application every 6 hours Avoiding steroids given their sodium retention which may complicate the patient's heart failure management as detailed above Admission and Anticipated Discharge Date Admission Date: November 08, 2024 Anticipated date of discharge: 11/12/24 Subjective Ms. Garcia is an 84-year-old female whose active medical conditions include heart failure with preserved ejection fraction in the setting of atrial fibrillation status post aortic valve replacement, chronic osteoarthritic back pain among other chronic medical conditions who was admitted to [facility] on 11/07 due to an acute exacerbation of their chronic heart failure. There were no acute overnight events. The patient's leg heaviness and discomfort have improved. They were able to ambulate to and from the bathroom this morning without dyspnea or fatigue. They do have continued right neck pain, which has been minimally improved from the previous day. Review of Systems Review of Systems: Constitutional: endorses fatigue; denies fevers, chills Cardiovascular: endorses improving orthopnea and lower extremity edema; denies angina, palpitations, syncope Pulmonary: denies cough, dyspnea on exertion, pleuritic chest pain Gastrointestinal: endorses mild nausea; denies emesis, dysphagia, dyspepsia, abdominal distension, constipation, diarrhea Musculoskeletal: endorses right posterior neck pain; denies additional arthralgias, progressive weakness, recent falls Integumentary: denies new or developing rashes or lesions Physical Exam Physical Exam: General: Adult female in no acute distress Vital Signs: Reviewed HEENT: Normocephalic, atraumatic; moist mucous membranes Neck: no palpable lymphadenopathy Pulmonary: symmetric chest wall excursion, diminished air movement in the bases bilaterally with associated fine crackles, remaining lung ge are clear to auscultation Cardiovascular: Regular rate and rhythm with no murmurs, rubs, or gallops; S1 and S2 normal; bilateral radial and posterior tibial pulses 2+; 1+ pitting bilateral lower extremity edema distal of the knee Gastrointestinal: soft, nondistended Musculoskeletal: the right cephalad border of the trapezius from the base of the skull caudally is hypertonic, ropey in consistency, cool to touch; the patient, when placed in neutral cervical spine position passively rotates and side bends to the right with significant discomfort with active as well as passive leftward cervical rotation and sidebending Neurologic: CN II through XII grossly intact Results & Data Results & Data Vital Signs (Past 12 Hours) Vital Signs Temp Pulse Resp BP BP Pulse Ox O2 Del Method 11/09/24 08:28 159/83 H 11/09/24 08:04 Room Air 11/09/24 07:08 36.7 C 73 18 182/104 H 189/92 H 98 Room Air 11/08/24 20:52 36.7 C 78 18 148/80 H 99 Room Air PG Care Time/CCT Total # of Minutes Spent Total Time Spent with Patient: Total time spent is greater than 50% in coordination of care (as documented) at patient's floor/unit and/or counseling patient: Coding Level of Care Code 57787 SUB INP/OBS CARE 3/50MIN Diagnoses Left ventricular outflow obstruction Q24.8 Acute exacerbation of chronic heart failure I50.9 Chronic anticoagulation Z79.01 Status post mechanical aortic valve replacement Z95.2 Torticollis, acquired M43.6
--- NOTE | 2024-11-09 12:24 | Cardiology Consultation ---
Date of Consultation November 09, 2024 Assessment & Plan (1) Status post mechanical aortic valve replacement: (2) Left ventricular outflow obstruction: (3) Acute exacerbation of chronic heart failure: The patient presents with acute heart failure with preserved ejection fraction. Echocardiogram performed 11/08/2024 reviewed with images reviewed/interpreted independently. I also reviewed the images of the previous studies performed at this institution including May 2024 and March,. The present study is notable for small left ventricular chamber size with severe concentric left ventricular hypertrophy the left ventricular systolic function is hyperdynamic, LVEF greater than 70%. The peak CW velocities across the prosthetic aortic valve approach 3.4 m/s, this is relatively unchanged compared to previous studies dating back to 2023. Is difficult to discern if this is due to obstruc tion of the mechanical aortic valve prosthesis or subvalvular obstruction in the setting of an anatomically narrow left ventricular outflow tract, left ventricular hypertrophy and hyperdynamic left ventricular systolic function. Moderate severe tricuspid regurgitation is present which likely explains her issues with lower extremity edema. The patient states that she typically takes Coumadin but "ran out of it "I was unable to tell me how long she has not taken it. She presents with an INR of 1, with goal INR of 2.5-3.5 given history of [facility] mechanical aortic valve prosthesis placed 30 years ago. I would speculate that perhaps she has not been taking her metoprolol or amlodipine either. Agree with current plan to reinitiate amlodipine 5 mg daily as well as metoprolol succinate 12.5 mg daily which are her previously prescribed outpatient doses. Agree with diuretic therapy, Bumex 1 mg IV twice daily. Continue to monitor renal function and electrolytes. Continue heparin bridge for subtherapeutic INR with plans to repeat INR on 11/10/2024.Patient had initially been prescribed Lovenox bridge this admission but she declined the Lovenox injection and has therefore been transferred to a heparin infusion. Per review of outpatient chart, her INR is followed by the [facility] telemetry pharmacy. Most recent encounter took place on 11/05/2024 with INR of 1.1 at that time. Patient was prescribed Coumadin 10 mg every Sunday and 5 mg the other days. Agree with current 10 mg daily loading dose. Will need to be cautious with regards to her anticoagulation with history of recurrent GI bleeding episodes. At the age of 84, Ongoing nonoperative therapy is likely in the patient's best interest. Joanne Akers DO History of Present Illness Attending Physician: Isiah Rose, DO History of Present Illness Aleida Ty is an 84 year old female seen in cardiology consultation per the request of Dr Rose for the evaluation of acute heart failure with preserved ejection fraction and abnormal findings on echocardiogram.Patient notes subjective complaints of debilitating fatigue. She notes chronic shortness of breath. She states that she has had recent trouble with lower extremity edema but that today her legs look "soft "and good for her. She was transferred from the third floor to the PCU earlier this morning for closer cardiac monitoring and in the meantime sinus rhythm in the 60s has been noted. Problem List: 1.Valvular heart disease status post MECHANICAL aortic valve replacement ([facility]) in 1984, [facility] 2. ? ASCVD status post CABG 3.Diastolic congestive heart failure 4.Paroxysmal atrial fibrillation observed when hospitalized in May 2024 with pneumonia and UTI 5.Hypertension 6.Right bundle-branch block 7.Carotid artery disease 8.Chronic kidney disease 9.Recurrent hyperkalemia 10.Recurrent GI bleeding 11.Chronic anemia 12.Chronic tobacco abuse 13.GERD 14.Glaucoma 15.Pressure ulcer 16.Status post hip replacement 17.Status post knee replacement Allergies Allergy/AdvReac Type Severity Reaction Status Date / Time No Known Allergies Allergy Verified 10/17/24 13:02 Home Medications Medication Instructions Recorded Confirmed Type latanoprost 0.005 % eye drops 1 drp OPB PM 07/31/23 11/07/24 History Shower Chair #1 ea 11/20/23 11/07/24 Rx brimonidine 0.2 % eye drops 1 drp OPB TID 03/18/24 11/07/24 History dorzolamide 2 % eye drops 1 drp OPB BID 03/18/24 11/07/24 History lidocaine 5 % topical patch 1 patch transdermal QAM #10 ea 08/29/24 11/07/24 Rx atorvastatin 40 mg tablet 40 mg PO QAM #90 tabs 09/17/24 11/07/24 Rx metoprolol succinate 25 mg 12.5 mg (1/2 x 25 mg) PO QAM #45 09/17/24 11/07/24 Rx tablet,extended release 24 hr tabs nitroglycerin 0.4 mg sublingual 0.4 mg sublingual DAILY PRN Chest 09/17/24 11/07/24 History tablet Pain gabapentin 100 mg capsule 100 mg PO BID PRN pain #180 caps 10/06/24 11/07/24 Rx famotidine 20 mg tablet 20 mg PO DAILY #90 tabs 10/15/24 11/07/24 Rx hydralazine 10 mg tablet 10 mg PO TID #270 tabs 10/15/24 11/07/24 Rx benzonatate 200 mg capsule 200 mg PO TID PRN cough #30 caps 10/17/24 11/07/24 Rx amlodipine 10 mg tablet 10 mg PO QAM 11/07/24 11/07/24 History furosemide 20 mg tablet 20 mg PO 3XWK 11/07/24 11/07/24 History lisinopril 10 mg tablet 10 mg PO QAM 11/07/24 11/07/24 History pantoprazole 40 mg tablet,delayed 40 mg PO AMHS 11/07/24 11/07/24 History release tramadol 50 mg tablet 50 mg PO Q8 PRN pain 11/07/24 11/07/24 History warfarin 5 mg tablet 5 - 10 mg PO QPM 11/07/24 11/07/24 History Patient History Medical History Mass of head of pancreas Carotid artery stenosis Hypertensive urgency Pneumonia CKD (chronic kidney disease) stage 3, GFR 30-59 ml/min HTN (hypertension) with goal to be determined On warfarin therapy Mitral stenosis Atrial fibrillation with RVR Upper GI bleed Acute blood loss anemia Aortic stenosis Chest tightness Hydronephrosis of right kidney Macrocytic anemia Current every day smoker On warfarin therapy Surgical History Status post hip replacement Status post knee replacement H/O mechanical aortic valve replacement Family History Brother Hypertension Heart disease Sister Hypertension Heart disease Mother Hypertension Heart disease Myocardial infarction Father Hypertension Heart disease Denies family history of Ovarian cancer Prostate cancer Breast cancer Lung cancer Colorectal cancer Stroke Social History Smoking Status: Current every day smoker Tobacco Type: Cigarettes Age Started Using Tobacco: 38; packs per day: 0.50; Cigarettes Per Day: 10; Second Hand Exposure: No; Do You Dip or Chew Tobacco: No; Hx Alcohol Use: No Hx Substance Use: No Preferred Language: Australian Communication Ability: Effective Visual Impairment: Limited Hearing Ability: Normal Cushion Maker Hand Required: No Beliefs That Will Affect Care: None marital status: / Current Living Situation: Alone Current Living Situation Comment: [employer] current occupational status: retired How many Children do You have: 4 Feels Safe at Home: Yes Childhood Exposure to Second-Hand Smoke: Yes Diet: low salt caffeine: Yes Dental Care, Regularly: No Physical Activity Frequency: Does not Exercise Seatbelt Use: always Sunscreen Use: No Assistive Devices: Walker Review of Systems Review of Systems: All systems reviewed & are unremarkable except as noted in HPI & below Physical Exam Physical Exam: General: no acute distress and stated age Eyes: conjunctiva are pink and non-injected, sclera clear Neck: normal jugular venous pulse, no hepatojugular reflux Chest: normal shape and normal respiratory effort Lungs: Mildly decreased breath sounds bilaterally at the base Cardiac Exam: - Regular rhythm, crisp prosthetic heart sounds no Abdomen: abdomen soft, non-tender, no abnormal masses and no hepatosplenomegaly Musculoskeletal: no gait disturbance, no weakness Extremities:Trace lower extremity edema Neuro:awake, conversant, follows commands, no focal motor deficits Psych: appropriate affect and insight. Results & Data Vital Signs (Past 12 Hours) Vital Signs Temp Pulse Pulse Resp BP BP Pulse Ox 11/09/24 11:35 36.5 C 73 18 173/84 H 96 11/09/24 09:43 66 11/09/24 09:04 36.7 C 64 18 146/76 H 98 11/09/24 08:28 159/83 H 11/09/24 08:04 11/09/24 07:08 36.7 C 73 18 182/104 H 189/92 H 98 O2 Del Method 11/09/24 11:35 Room Air 11/09/24 09:43 11/09/24 09:04 Room Air 11/09/24 08:28 11/09/24 08:04 Room Air 11/09/24 07:08 Room Air Laboratory Results Coagulation 11/08/24 Range/Units 18:11 PT 11.4 (9.0-12.0) Seconds APTT 26 (21-31) Seconds CBC 11/08/24 Range/Units 18:11 WBC 4.56 L (4.8-10.8) K/ul RBC 3.96 L (4.20-5.40) M/uL Hgb 13.2 (12.0-16.0) g/dl Hct 42.3 (37.0-47.0) % Plt Count 194 (130-400) K/uL Neut # (Auto) 3.11 (1.40-6.50) K/uL Lymph # (Auto) 0.81 L (1.20-3.40) K/uL Perkins # (Auto) 0.37 (0.11-0.59) K/uL Eos # (Auto) 0.23 (0.00-0.50) K/uL Baso # (Auto) 0.03 (0.00-0.20) K/uL Comprehensive Metabolic Panel 11/09/24 Range/Units 05:49 Sodium 140 (136-145) mmol/L Potassium 3.9 (3.5-5.1) mmol/L Chloride 109 H (98-107) mmol/L Carbon Dioxide 20 L (21-32) mmol/L BUN 42 H (6-23) mg/dl Creatinine 1.83 H (0.6-1.2) mg/dl Glucose 88 (70-99(Fasting)) mg/dl Calcium 9.4 (8.6-10.3) mg/dl Albumin 4.0 (3.4-5.0) gm/dl Intake and Output 11/08/24 11/09/24 11/09/24 22:59 06:59 14:59 Intake Total 120 / 240 120 / 240 294.783 / 294.783 Output Total 600 / 1200 600 / 1200 Balance -480 / -960 -480 / -960 294.783 / 294.783 Intake: IV 294.783 / 294.783 Heparin 45113 Unit/500 ml D5w 294.783 / 294.783 25,000 units In 500 ml @ 1,150 UNITS/HR 23 mls/hr IV .[id number] [facility] Rx#:[id number] Oral 120 / 240 120 / 240 Output: Urine Amount (Catheter) 600 / 1200 600 / 1200 External 600 / 1200 600 / 1200 Other: # Unmeasured Voids 1 Diagnostic Findings EKG performed today 11/07/2024 at 2058 and interpreted independently: Sinus rhythm at 81 bpm, with first-degree AV block, right bundle branch block. Compared to the previous dated 09/23/2024, no significant Nerval change. PG Care Time/CCT Total # of Minutes Spent Total Time Spent with Patient: Total time spent is greater than 50% in coordination of care (as documented) at patient's floor/unit and/or counseling patient: Coding Level of Care Code 21877 IN/OBS CONSULT LVL 4,60M Diagnoses Status post mechanical aortic valve replacement Z95.2 Left ventricular outflow obstruction Q24.8 Acute exacerbation of chronic heart failure I50.9
--- NOTE | 2024-11-09 12:24 | Communication Note ---
Date of Service: November 09, 2024 contacted by nursing staff due to concern for the patient's complaint of one- sided blurry vision. 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 She does also endorse some increased tear production and a sensation of something being in her eyes and uncomfortable but without any shooting pain, sharp stabbing pain, or other discomfort. The right pupils equally round reactive to light with consensual constriction of the left pupil; the left pupil has a minimal pupillary reflex with intact and central constriction of the right pupil; extraocular muscles are intact; right visual field is intact in all 4 quadrants; the external anatomy of the right eye appears normal, there is an intraocular lens device present in both eyes, appears to be in appropriate position at this time; gross visual acuity assessment at bedside of the right eye is 20/40. At this time suspect the patient is experiencing some visual acuity changes consequential of corneal dehydration; there is no evidence at this time of a central neurologic process resulting in altered visual acuity; discussed with nursing staff at bedside, to start as needed artificial tears GGT, to be not administered within 45 minutes after administration of the patient's ophthalmic medications.
[2024-11-09 16:08] LABS: ANTI-Xa, UFH(UnfractionatedHep 0.63 IU/ml (0.3-0.7)
[2024-11-09] MEDS: BENZONATATE 100 MG CAPSULE PO PRN (22:00)
[2024-11-10 04:27] LABS: Anion Gap 9.0 (3-11); Blood Urea Nitrogen 37.0 mg/dl (6-23); Calcium 9.4 mg/dl (8.6-10.3); Carbon Dioxide 22.0 mmol/L (21-32); Chloride 107.0 mmol/L (98-107); Creatinine Clr Calc Pharmacy 22.2 ml/min; Glucose 86.0 mg/dl (70-99(Fasting)); Magnesium 2.1 mg/dl (1.7-2.4); Potassium 3.5 mmol/L (3.5-5.1); Sodium 138.0 mmol/L (136-145)
[2024-11-10 04:35] LABS: ANTI-Xa, UFH(UnfractionatedHep 0.69 IU/ml (0.3-0.7)
[2024-11-10 04:38] LABS: INR 1.9 (0.9-1.1); Prothrombin Time 19.8 Seconds (9.0-12.0)
[2024-11-10] MEDS: BUMETANIDE 1 MG TAB PO SCH (08:41)
--- NOTE | 2024-11-10 09:58 | Hospitalist Progress Note ---
Date of Service November 10, 2024 Assessment & Plan (1) Left ventricular outflow obstruction: (2) Acute exacerbation of chronic heart failure: (3) Chronic anticoagulation: (4) Status post mechanical aortic valve replacement: (5) Torticollis, acquired: Plan In summary this is an 84-year-old female admitted for acute on chronic heart failure exacerbation, found to have a left ventricular outflow abnormality with poor visualization of their mechanical aortic valve with noted abnormal transvalvular gradients. #Acute on chronic heart failure exacerbation // Left ventricular outflow obstruction With regard to the patient's heart failure exacerbation; TTE on 11/08 revealed Findings consistent with left ventricular outflow obstruction with an abnormal transvalvular aortic valve gradient, there ejection fraction has not significantly changed from previous TTE obtained 05/2024 of 65 to 70%, though it is noted that this is hyperdynamic; current urine output rate of 0.59 mL/kg/h Continue heparin gtt Measure intake and output every shift Nursing to contact attending physician if urinary output is less than 0.5 mL/kg/h Transition bumetanide 1 mg IV to p.o. twice daily Follow daily renal function panel and magnesium during active diuresis Cardiology consulted #Subtherapeutic INR in the setting of mechanical aortic valve with goal INR 2.5- 3.5 Consequential of nonadherence per the patient's report, specifically stating a refill has not yet been obtained; dietary and medication changes were reviewed, none of which are likely interfering with warfarin absorption or metabolism; may be consequential of intestinal wall edema in the setting of their heart failure exacerbation, but unlikely as the patient describes they have been without this medication for at minimum one week Continue home warfarin 10 mg p.o. daily Continue heparin GTT - INR 1.9 on 11/10 #Torticollis, acquired Likely consequence of chronic positioning at home due to decreased activity in the setting of the progressive heart failure exacerbation; discussed with nursing staff frequent repositioning such that the patient is placed in the passive leftward cervical rotation and sidebending position to facilitate passive stretch Continue acetaminophen 1000 mg p.o. every 8 hours - Start Toradol 15 mg IV every 6 hours scheduled Continue diclofenac sodium 2 g external application every 6 hours Avoiding steroids given their sodium retention which may complicate the patient's heart failure management as detailed above Admission and Anticipated Discharge Date Admission Date: November 08, 2024 Subjective Ms. Garcia is an 84-year-old female whose active medical conditions include he art failure with preserved ejection fraction in the setting of atrial fibrillation status post aortic valve replacement, chronic osteoarthritic back pain among other chronic medical conditions who was admitted to [facility] on 11/07 due to an acute exacerbation of their chronic heart failure. There were no acute overnight events. Review of Systems Review of Systems: Constitutional: endorses fatigue; denies fevers, chills Cardiovascular: endorses improving orthopnea and lower extremity edema; denies angina, palpitations, syncope Pulmonary: denies cough, dyspnea on exertion, pleuritic chest pain Gastrointestinal: endorses mild nausea; denies emesis, dysphagia, dyspepsia, abdominal distension, constipation, diarrhea Musculoskeletal: endorses right posterior neck pain; denies additional arthralgias, progressive weakness, recent falls Integumentary: denies new or developing rashes or lesions Physical Exam Physical Exam: General: Adult female in no acute distress Vital Signs: Reviewed HEENT: Normocephalic, atraumatic; moist mucous membranes Neck: no palpable lymphadenopathy Pulmonary: symmetric chest wall excursion, diminished air movement in the bases bilaterally with associated fine crackles, remaining lung ge are clear to auscultation Cardiovascular: Regular rate and rhythm with no murmurs, rubs, or gallops; S1 and S2 normal; bilateral radial and posterior tibial pulses 2+; 1+ pitting bilateral lower extremity edema distal of the knee Gastrointestinal: soft, nondistended Musculoskeletal: the right cephalad border of the trapezius from the base of the skull caudally is hypertonic, ropey in consistency, cool to touch; the patient, when placed in neutral cervical spine position passively rotates and side bends to the right with significant discomfort with active as well as passive leftward cervical rotation and sidebending Neurologic: CN II through XII grossly intact Results & Data Results & Data Vital Signs (Past 12 Hours) Vital Signs Temp Pulse Pulse Resp BP BP Pulse Ox 11/10/24 09:13 11/10/24 07:21 36.6 C 80 18 154/77 H 97 11/10/24 07:10 66 11/10/24 03:19 11/10/24 03:15 36.6 C 79 20 129/68 94 11/09/24 23:25 36.4 C L 66 18 137/69 96 O2 Del Method 11/10/24 09:13 Room Air 11/10/24 07:21 Room Air 11/10/24 07:10 11/10/24 03:19 Room Air 11/10/24 03:15 Room Air 11/09/24 23:25 Room Air PG Care Time/CCT Total # of Minutes Spent Total Time Spent with Patient: Total time spent is greater than 50% in coordination of care (as documented) at patient's floor/unit and/or counseling patient: Coding Level of Care Code 55392 SUB INP/OBS CARE 2/35MIN Medical Decision Making Moderate Complexity Diagnoses Left ventricular outflow obstruction Q24.8 Acute exacerbation of chronic heart failure I50.9 Chronic anticoagulation Z79.01 Status post mechanical aortic valve replacement Z95.2 Torticollis, acquired M43.6
[2024-11-10] MEDS: KETOROLAC TROMETHAMINE 15 MG/ML VIAL IV SCH (10:24)
[2024-11-10] MEDS: ACETAMINOPHEN 500 MG TAB PO SCH (10:24)
--- NOTE | 2024-11-10 10:55 | Cardiology Progress Note ---
Date of Service November 10, 2024 Assessment & Plan (1) Status post mechanical aortic valve replacement: (2) Left ventricular outflow obstruction: (3) Acute exacerbation of chronic heart failure: Plan: 84-year-old female presents with acute on chronic heart failure preserved ejection fraction and likely noncompliance with outpatient medications as evidenced subtherapeutic (Normal) INR on admission. Moderate to severe tricuspid regurgitation in addition to moderately elevated continuous-wave velocities across the prosthetic aortic valve per echo. Findings are similar to prior echocardiograms. Volume status/ edema improved since admission with INR trending upward. Continue Bumex 1 mg IV BID. Monitor fluid balance, GFR, electrolytes, and daily weight. Transition to oral furosemide at discharge. Amlodipine, hydralazine, and metoprolol resumed. Continue IV heparin bridge. Goal INR 2.5-3.5. Continued caution advised regarding anticoagulation due to history of GI bleed. Max Carlos DO, [facility] Admission and Anticipated Discharge Date Admission Date: November 08, 2024 Subjective 84-year-old female seen and examined at the bedside. Significant improvement of lower extremity edema. Notes chronic dyspnea on exertion which is unchanged at this time. No orthopnea, PND, or chest pain. Telemetry 70s. No dysrhythmia. INR remains subtherapeutic. Review of Systems Review of Systems: All systems reviewed & are unremarkable except as noted in Subjective Physical Exam Constitutional: well nourished; no acute distress Respiratory: no respiratory distress, no labored breathing and no retractions Auscultation: no crackles, no rales, no rhonchi and no wheezes Cardiovascular: Rate/Rhythm: regular rate and regular rhythm Heart Sounds: normal S1, normal S2 and + murmur (2/6 LEMUEL, + click) Extremities: + edema (Trace bilateral ankle edema) Gastrointestinal (Abdomen): Inspection/Auscultation: normal bowel sounds; abdomen not distended Percussion/Palpation: abdomen soft; abdomen nontender, no guarding and abdomen not rigid Neurologic: CN's II-XI intact bilaterally and moves all extremities; no focal motor deficits Results & Data Vital Signs (Past 12 Hours) Vital Signs Temp Pulse Pulse Resp BP BP Pulse Ox 11/10/24 09:13 11/10/24 07:21 36.6 C 80 18 154/77 H 97 11/10/24 07:10 66 11/10/24 03:19 11/10/24 03:15 36.6 C 79 20 129/68 94 11/09/24 23:25 36.4 C L 66 18 137/69 96 O2 Del Method 11/10/24 09:13 Room Air 11/10/24 07:21 Room Air 11/10/24 07:10 11/10/24 03:19 Room Air 11/10/24 03:15 Room Air 11/09/24 23:25 Room Air Laboratory Results Coagulation 11/10/24 Range/Units 03:55 PT 19.8 H (9.0-12.0) Seconds Comprehensive Metabolic Panel 11/10/24 Range/Units 03:55 Sodium 138 (136-145) mmol/L Potassium 3.5 (3.5-5.1) mmol/L Chloride 107 (98-107) mmol/L Carbon Dioxide 22 (21-32) mmol/L BUN 37 H (6-23) mg/dl Creatinine 1.84 H (0.6-1.2) mg/dl Glucose 86 (70-99(Fasting)) mg/dl Calcium 9.4 (8.6-10.3) mg/dl Albumin 3.8 (3.4-5.0) gm/dl Intake and Output 11/09/24 11/10/24 11/10/24 22:59 06:59 14:59 Intake Total 177.9 / 1146.983 224.3 / 1146.983 42.9 / 42.9 Output Total 650 / 1750 600 / 1750 Balance -472.1 / -603.017 -375.7 / -603.017 42.9 / 42.9 Intake: IV 177.9 / 646.983 174.3 / 646.983 42.9 / 42.9 Heparin 15179 Unit/500 ml D5w 177.9 / 646.983 174.3 / 646.983 42.9 / 42.9 25,000 units In 500 ml @ 900 UNITS/HR 18 mls/hr IV .Q24H [facility] Rx#:[id number] Oral 50 / 500 Output: Urine Amount (Catheter) 650 / 1750 600 / 1750 External 650 / 1750 600 / 1750 Other: Other Intake Source SIPS PG Care Time/CCT Total # of Minutes Spent Total Time Spent with Patient: Total time spent is greater than 50% in coordination of care (as documented) at patient's floor/unit and/or counseling patient: Coding Level of Care Code 82534 SUB INP/OBS CARE 350MIN Diagnoses Status post mechanical aortic valve replacement Z95.2 Left ventricular outflow obstruction Q24.8 Acute exacerbation of chronic heart failure I50.9
[2024-11-11 06:58] LABS: Anion Gap 11.0 (3-11); Calcium 9.4 mg/dl (8.6-10.3); Carbon Dioxide 22.0 mmol/L (21-32); Chloride 106.0 mmol/L (98-107); Magnesium 2.3 mg/dl (1.7-2.4); Potassium 3.6 mmol/L (3.5-5.1); Sodium 139.0 mmol/L (136-145)
[2024-11-11 07:04] LABS: Blood Urea Nitrogen 40.0 mg/dl (6-23); Creatinine Clr Calc Pharmacy 17.5 ml/min; Glucose 85.0 mg/dl (70-99(Fasting))
[2024-11-11 07:52] LABS: ANTI-Xa, UFH(UnfractionatedHep 0.99 IU/ml (0.3-0.7)
--- NOTE | 2024-11-11 08:57 | Hospitalist Progress Note ---
Date of Service November 11, 2024 Assessment & Plan (1) Left ventricular outflow obstruction: (2) Acute exacerbation of chronic heart failure: (3) Chronic anticoagulation: (4) Status post mechanical aortic valve replacement: (5) Torticollis, acquired: Plan In summary this is an 84-year-old female admitted for acute on chronic heart failure exacerbation, found to have a left ventricular outflow abnormality with poor visualization of their mechanical aortic valve with noted abnormal transvalvular gradients. #Acute on chronic heart failure exacerbation // Left ventricular outflow obstruction // Hypertension With regard to the patient's heart failure exacerbation; TTE on 11/08 revealed Findings consistent with left ventricular outflow obstruction with an abnormal transvalvular aortic valve gradient, there ejection fraction has not significantly changed from previous TTE obtained 05/2024 of 65 to 70%, though it is noted that this is hyperdynamic; current urine output rate of 0.59 mL/kg/h Continue heparin gtt Measure intake and output every shift Nursing to contact attending physician if urinary output is less than 0.5 mL/kg/h Continue bumetanide 1 mg IV to p.o. twice daily Follow daily renal function panel and magnesium during active diuresis Cardiology consulted #Subtherapeutic INR in the setting of mechanical aortic valve with goal INR 2.5- 3.5 Consequential of nonadherence per the patient's report, specifically stating a refill has not yet been obtained; dietary and medication changes were reviewed, none of which are likely interfering with warfarin absorption or metabolism; may be consequential of intestinal wall edema in the setting of their heart failure exacerbation, but unlikely as the patient describes they have been without this medication for at minimum one week Continue home warfarin 10 mg p.o. daily Continue heparin GTT - INR 1.9 on 11/10; reassess 11/12 #Torticollis, acquired Likely consequence of chronic positioning at home due to decreased activity in the setting of the progressive heart failure exacerbation; discussed with nursing staff frequent repositioning such that the patient is placed in the passive leftward cervical rotation and sidebending position to facilitate passive stretch Continue acetaminophen 1000 mg p.o. every 8 hours - Continue Toradol 15 mg IV every 6 hours scheduled Continue diclofenac sodium 2 g external application every 6 hours Avoiding steroids given their sodium retention which may complicate the patient's heart failure management as detailed above Admission and Anticipated Discharge Date Admission Date: November 08, 2024 Subjective Ms. Garcia is an 84-year-old female whose active medical conditions include heart failure with preserved ejection fraction in the setting of atrial fibrillation status post aortic valve replacement, chronic osteoarthritic back pain among other chronic medical conditions who was admitted to [facility] on 11/07 due to an acute exacerbation of their chronic heart failure. There were no acute overnight events. This morning the patient endorses a recurrent bilateral throbbing headache present behind their eyes without associated visual aura. Review of Systems Review of Systems: Constitutional: endorses fatigue; denies fevers, chills Cardiovascular: endorses improving orthopnea and lower extremity edema; denies angina, palpitations, syncope Pulmonary: denies cough, dyspnea on exertion, pleuritic chest pain Gastrointestinal: endorses mild nausea; denies emesis, dysphagia, dyspepsia, abdominal distension, constipation, diarrhea Musculoskeletal: endorses right posterior neck pain; denies additional arthralgias, progressive weakness, recent falls Integumentary: denies new or developing rashes or lesions Physical Exam Physical Exam: General: Adult female in no acute distress Vital Signs: Reviewed; persistently hypertensive HEENT: Normocephalic, atraumatic; moist mucous membranes Neck: no palpable lymphadenopathy Pulmonary: symmetric chest wall excursion, diminished air movement in the bases bilaterally with associated fine crackles, remaining lung ge are clear to auscultation Cardiovascular: Regular rate and rhythm with no murmurs, rubs, or gallops; S1 and S2 normal; bilateral radial and posterior tibial pulses 2+; 1+ pitting bilateral lower extremity edema distal of the knee Gastrointestinal: soft, nondistended Musculoskeletal: the right cephalad border of the trapezius from the base of the skull caudally is hypertonic, ropey in consistency, cool to touch; the patient, when placed in neutral cervical spine position passively rotates and side bends to the right with significant discomfort with active as well as passive leftward cervical rotation and sidebending Neurologic: CN II through XII grossly intact Results & Data Results & Data Vital Signs (Past 12 Hours) Vital Signs Temp Pulse Resp BP Pulse Ox O2 Del Method 11/11/24 08:15 85 190/93 H 11/11/24 07:16 36.5 C 73 18 183/87 H 96 Room Air 11/11/24 04:05 36.4 C L 72 18 116/73 97 Room Air 11/10/24 23:43 36.6 C 73 18 168/85 H 96 Room Air PG Care Time/CCT Total # of Minutes Spent Total Time Spent with Patient: Total time spent is greater than 50% in coordination of care (as documented) at patient's floor/unit and/or counseling patient: Coding Level of Care Code 13507 SUB INP/OBS CARE 2/35MIN Diagnoses Left ventricular outflow obstruction Q24.8 Acute exacerbation of chronic heart failure I50.9 Chronic anticoagulation Z79.01 Status post mechanical aortic valve replacement Z95.2 Torticollis, acquired M43.6
[2024-11-11] MEDS: ENALAPRILAT 0.625 MG in SYRINGE 9.5 ML IV ONE (09:07)
[2024-11-11 09:43] LABS: INR 3.2 (0.9-1.1); Prothrombin Time 31.4 Seconds (9.0-12.0)
--- NOTE | 2024-11-11 10:13 | Cardiology Progress Note ---
Date of Service November 11, 2024 Assessment & Plan (1) Acute exacerbation of chronic heart failure: (2) Status post mechanical aortic valve replacement: (3) Left ventricular outflow obstruction: (4) Acute on chronic renal insufficiency: Plan 84-year-old female presents with acute on chronic heart failure preserved ejection fraction and likely noncompliance with outpatient medications as evidenced subtherapeutic (Normal) INR on admission. Moderate to severe tricuspid regurgitation in addition to moderately elevated continuous-wave velocities across the prosthetic aortic valve per echo. Findings are similar to prior echocardiograms. INR 3.2 today (therapeutic range) Discontinue IV heparin. Outpatient warfarin dose: 5 mg daily with 10 mg on Fridays. Goal INR 2.5-3.5. Caution advised regarding anticoagulation due to history of GI bleed. Volume status/ edema improved since admission. Creatinine trending upward. Discontinue IV Bumex. Consider restarting oral furosemide in a.m. 11/12/2024 pending review of lab studies. Continue Amlodipine, hydralazine, and metoprolol. Max Carlos DO [facility] Admission and Anticipated Discharge Date Admission Date: November 08, 2024 Subjective 84-year-old female seen and examined at the bedside. Reports feeling fatigued and weak today. Denies chest pain, shortness of breath, or palpitations. No orthopnea or PND. Edema improved since admission. Telemetry reveals sinus rhythm in the 60s to 70s. No signs/symptoms of GI blood loss. INR 3.2 Review of Systems Review of Systems: All systems reviewed & are unremarkable except as noted in Subjective Physical Exam Constitutional: well nourished; no acute distress Respiratory: no respiratory distress, no labored breathing and no retractions Auscultation: no crackles, no rales, no rhonchi and no wheezes Cardiovascular: Rate/Rhythm: regular rate and regular rhythm Heart Sounds: normal S1, normal S2 and + murmur (2/6 LEMUEL, + click) Extremities: + edema (Trace bilateral ankle edema) Gastrointestinal (Abdomen): Inspection/Auscultation: normal bowel sounds; abdomen not distended Percussion/Palpation: abdomen soft; abdomen nontender, no guarding and abdomen not rigid Neurologic: CN's II-XI intact bilaterally and moves all extremities; no focal motor deficits Results & Data Vital Signs (Past 12 Hours) Vital Signs Temp Pulse Resp BP Pulse Ox O2 Del Method 11/11/24 09:47 70 122/68 11/11/24 08:15 85 190/93 H 11/11/24 07:40 Room Air 11/11/24 07:16 36.5 C 73 18 183/87 H 96 Room Air 11/11/24 04:05 36.4 C L 72 18 116/73 97 Room Air 11/10/24 23:43 36.6 C 73 18 168/85 H 96 Room Air Laboratory Results Coagulation 11/11/24 Range/Units 08:51 PT 31.4 H (9.0-12.0) Seconds Comprehensive Metabolic Panel 11/11/24 Range/Units 05:28 Sodium 139 (136-145) mmol/L Potassium 3.6 (3.5-5.1) mmol/L Chloride 106 (98-107) mmol/L Carbon Dioxide 22 (21-32) mmol/L BUN 40 H (6-23) mg/dl Creatinine 2.34 H D (0.6-1.2) mg/dl Glucose 85 (70-99(Fasting)) mg/dl Calcium 9.4 (8.6-10.3) mg/dl Albumin 4.0 (3.4-5.0) gm/dl Intake and Output 11/10/24 11/11/24 11/11/24 22:59 06:59 14:59 Intake Total 432.3 / 1075.2 254.4 / 254.4 Balance 432.3 / 175.2 254.4 / 254.4 Intake: IV 192.3 / 235.2 254.4 / 254.4 Heparin 78635 Unit/500 ml D5w 192.3 / 235.2 254.4 / 254.4 25,000 units In 500 ml @ 900 UNITS/HR 18 mls/hr IV .Q24H MCKENZIE Rx#:[id number] Oral 240 / 840 Other: # Unmeasured Voids 1 1 PG Care Time/CCT Total # of Minutes Spent Total Time Spent with Patient: Total time spent is greater than 50% in coordination of care (as documented) at patient's floor/unit and/or counseling patient: Coding Level of Care Code 94226 SUB INP/OBS CARE 3/50MIN Diagnoses Acute exacerbation of chronic heart failure I50.9 Status post mechanical aortic valve replacement Z95.2 Left ventricular outflow obstruction Q24.8 Acute on chronic renal insufficiency N28.9; N18.9
[2024-11-11] MEDS: WARFARIN SOD 5 MG TAB PO SCH (15:51)
[2024-11-12 06:19] LABS: Anion Gap 10.0 (3-11); Blood Urea Nitrogen 50.0 mg/dl (6-23); Calcium 9.4 mg/dl (8.6-10.3); Carbon Dioxide 22.0 mmol/L (21-32); Chloride 105.0 mmol/L (98-107); Creatinine Clr Calc Pharmacy 13.5 ml/min; Glucose 82.0 mg/dl (70-99(Fasting)); Potassium 4.3 mmol/L (3.5-5.1); Sodium 137.0 mmol/L (136-145)
[2024-11-12 08:51] LABS: INR 3.7 (0.9-1.1); Prothrombin Time 36.1 Seconds (9.0-12.0)
--- NOTE | 2024-11-12 09:14 | XRay Report ---
XR chest 1V portable CLINICAL HISTORY: CHF COMPARISON STUDY: 11/07/2024 FINDINGS: Stable CABG. Stable moderate cardiomegaly with mild pulmonary vascular congestion. No conso lidation or pleural effusion. No pneumothorax. IMPRESSION: Stable mild CHF. ACT 112: Negative or not required by law. Electronically signed by: Alvaro Blakely M.D. 11/12/2024 9:13 AM
--- NOTE | 2024-11-12 12:51 | Cardiology Progress Note ---
Date of Service November 12, 2024 Assessment & Plan (1) Acute exacerbation of chronic heart failure: (2) Status post mechanical aortic valve replacement: (3) Left ventricular outflow obstruction: (4) Acute on chronic renal insufficiency: Plan 84-year-old female presents with acute on chronic heart failure preserved ejection fraction and likely noncompliance with outpatient medications as evidenced subtherapeutic (Normal) INR on admission. Moderate to severe tricuspid regurgitation in addition to moderately elevated continuous-wave velocities across the prosthetic aortic valve per echo. Findings are similar to prior echocardiograms. INR 3.7 today (goal 2.5-3.5) Outpatient warfarin dose: 5 mg daily with 10 mg on Fridays. Reduce coumadin to 2.5 mg daily today , repeat INR 8/7 Caution advised regarding anticoagulation due to history of GI bleed. Volume status/ edema improved since admission. Creatinine trending upward. IV Bumex discontinued Hold oral furosemide in a.m. 11/12/2024 pending review of lab studies. Continue Amlodipine, hydralazine, and metoprolol. Elmo Akers DO Admission and Anticipated Discharge Date Admission Date: November 08, 2024 Subjective Patient notes generalized fatigue. LE edema improved. Telemetry reveals SR in the 60s. Physical Exam Physical Exam: General: no acute distress and stated age Eyes: conjunctiva are pink and non-injected, sclera clear Neck: normal jugular venous pulse, no hepatojugular reflux Chest: normal shape and normal respiratory effort Lungs: Mildly decreased breath sounds bilaterally at the base Cardiac Exam: - Regular rhythm, crisp prosthetic heart sounds no Abdomen: abdomen soft, non-tender, no abnormal masses and no hepatosplenomegaly Musculoskeletal: no gait disturbance, no weakness Extremities:Trace lower extremity edema Neuro:awake, conversant, follows commands, no focal motor deficits Psych: appropriate affect and insight. Results & Data Vital Signs (Past 12 Hours) Vital Signs Temp Pulse Pulse Resp BP Pulse Ox O2 Del Method 11/12/24 10:45 36.7 C 63 17 142/78 H 98 Room Air 11/12/24 07:52 73 11/12/24 07:49 Room Air 11/12/24 07:13 36.6 C 93 H 18 167/95 H 94 Room Air 11/12/24 03:30 36.2 C L 56 L 16 126/65 97 Room Air Laboratory Results Coagulation 11/12/24 Range/Units 05:26 PT 36.1 H (9.0-12.0) Seconds INR 3.7 Comprehensive Metabolic Panel 11/12/24 Range/Units 05:20 Sodium 137 (136-145) mmol/L Potassium 4.3 (3.5-5.1) mmol/L Chloride 105 (98-107) mmol/L Carbon Dioxide 22 (21-32) mmol/L BUN 50 H (6-23) mg/dl Creatinine 3.00 H D (0.6-1.2) mg/dl Glucose 82 (70-99(Fasting)) mg/dl Calcium 9.4 (8.6-10.3) mg/dl Albumin 3.9 (3.4-5.0) gm/dl Intake and Output 11/11/24 11/12/24 11/12/24 22:59 06:59 14:59 Intake Total 200 / 975.4 50 / 975.4 Balance 200 / 974.4 50 / 974.4 Intake: Oral 200 / 700 50 / 700 Other: # Unmeasured Voids 1 1 Weight 79.7 kg Weight Measurement Method Built in [facility] PG Care Time/CCT Total # of Minutes Spent Total Time Spent with Patient: Total time spent is greater than 50% in coordination of care (as documented) at patient's floor/unit and/or counseling patient:50 Coding Level of Care Code 12278 SUB INP/OBS CARE 3/50MIN Diagnoses Acute exacerbation of chronic heart failure I50.9 Status post mechanical aortic valve replacement Z95.2 Left ventricular outflow obstruction Q24.8 Acute on chronic renal insufficiency N28.9; N18.9
--- NOTE | 2024-11-12 14:35 | Hospitalist Progress Note ---
Date of Service November 12, 2024 Assessment & Plan (1) Acute exacerbation of chronic heart failure: Plan: Diastolic in nature. Chest x-ray done today, November 12 looks better. Diuretics are on hold due to creatinine elevation and serum osmolarity 304. She is on room air. Appreciate cardiology consultation and recommendations (2) Left ventricular outflow obstruction: Plan: History of mechanical aortic valve replacement on Coumadin therapy. INR is therapeutic at 3.7 (3) Chronic anticoagulation: Plan: Coumadin therapy due to mechanical aortic valve (4) Status post mechanical aortic valve replacement: Plan: Continue Coumadin therapy (5) Acute kidney injury superimposed on stage 3b chronic kidney disease: Plan: Creatinine has trended upward with diuresis, now 3.0. No further diuretics at this time. Will monitor urine output and daily lab Plan Hopeful discharge to home tomorrow, November 13, with home health services. Admission and Anticipated Discharge Date Admission Date: November 08, 2024 Subjective Alert and oriented although she feels very tired and washed out from diuresis. Creatinine has risen to 3.0 and serum osmolarity 304. Will hold off on further diuresis for now. Chest x-ray done today, November 12, looks better. Cardiology entry noted. INR is therapeutic at 3.7. Review of Systems 2 Review of Systems: Constitutionalno fever or chills. She feels fatigued and washed out from diuresis ENTno blurred vision, no double vision, no epistaxis, no sore throat Respiratoryno cough, no wheezing, no shortness of breath Cardiacno palpitations, no chest pain, no syncope Chelsie nausea, vomiting, diarrhea, melena, hematochezia GUno urinary retention, no urinary incontinence, no dysuria, no hematuria Musculoskeletalno joint pain, no muscle tenderness Skinno bruising, no rashes, no pruritus Neurono isolated weakness, no paresthesia Psychno depression, no anxiety Physical Exam 2 Physical Exam: General-alert and oriented x3, no fever, no chills HEENT-head atraumatic and normocephalic, pupils equal and reactive to light, extraocular muscles intact Neck-no lymphadenopathy or thyromegaly, trachea midline Chest-clear to auscultation. No rales, wheezing or rhonchi Cardiac-regular rate and rhythm, normal S1 and S2 Abdomen-normal bowel sounds, no hepatosplenomegaly Extremities-no cyanosis, clubbing, or edema Neuro-cranial nerves II through XII intact, motor and sensory function within normal limits, strength symmetrical, no focal deficits Psych-normal affect, normal mood Results & Data Results & Data Vital Signs (Past 12 Hours) Vital Signs Temp Pulse Pulse Resp BP Pulse Ox O2 Del Method 11/12/24 10:45 36.7 C 63 17 142/78 H 98 Room Air 11/12/24 07:52 73 11/12/24 07:49 Room Air 11/12/24 07:13 36.6 C 93 H 18 167/95 H 94 Room Air 11/12/24 03:30 36.2 C L 56 L 16 126/65 97 Room Air Laboratory Results 11/08/24 18:11 11/12/24 05:20 PG Care Time/CCT Total # of Minutes Spent Total Time Spent with Patient: Total time spent is greater than 50% in coordination of care (as documented) at patient's floor/unit and/or counseling patient: Coding Level of Care Code 56172 SUB INP/OBS CARE 3/50MIN Diagnoses Acute exacerbation of chronic heart failure I50.9 Left ventricular outflow obstruction Q24.8 Chronic anticoagulation Z79.01 Status post mechanical aortic valve replacement Z95.2 Acute kidney injury superimposed on stage 3b chronic kidney disease N17.9; N18.32
[2024-11-13 07:57] LABS: Anion Gap 10.0 (3-11); Blood Urea Nitrogen 56.0 mg/dl (6-23); Calcium 9.1 mg/dl (8.6-10.3); Carbon Dioxide 20.0 mmol/L (21-32); Chloride 106.0 mmol/L (98-107); Creatinine Clr Calc Pharmacy 13.8 ml/min; Glucose 85.0 mg/dl (70-99(Fasting)); Potassium 3.8 mmol/L (3.5-5.1); Sodium 136.0 mmol/L (136-145)
[2024-11-13 08:09] LABS: INR 4.2 (0.9-1.1); Prothrombin Time 39.8 Seconds (9.0-12.0)
--- NOTE | 2024-11-13 11:18 | Hospitalist Progress Note ---
Date of Service November 13, 2024 Assessment & Plan (1) Acute exacerbation of chronic heart failure: Plan: Diastolic in nature. Chest x-ray done on November 12 looked better. Diuretics are on hold due to creatinine elevation and serum osmolarity elevation. She remains on room air. Appreciate cardiology consultation and recommendations (2) Left ventricular outflow obstruction: Plan: History of mechanical aortic valve replacement on Coumadin therapy. INR is now elevated at 4.2 and Coumadin is on hold. (3) Chronic anticoagulation: Plan: Coumadin therapy due to mechanical aortic valve (4) Status post mechanical aortic valve replacement: Plan: Coumadin therapy is currently on hold due to elevated INR. (5) Acute kidney injury superimposed on stage 3b chronic kidney disease: Plan: Creatinine trended upward with diuresis to 3.0 and today, November 13, it is 2.9. Diuretics are currently on hold. Monitor intake and output. Serial labs. Plan Anticipate discharge to SNF before she can return to her prior living arrangements. Hopefully within the next day or 2. Admission and Anticipated Discharge Date Admission Date: November 08, 2024 Subjective Alert but she remains very weak. Fortunately her creatinine has not risen further and is 2.9 today, slightly lower than yesterday 3.0. INR is 4.2 and Coumadin is currently on hold. A message was sent to case management about temporary SNF placement before she can return home. OT and PT both indicate that the patient should have SNF at discharge. Diuretics remain on hold Review of Systems 2 Review of Systems: Constitutionalno fever or chills. She feels fatigued and washed out from diuresis ENTno blurred vision, no double vision, no epistaxis, no sore throat Respiratoryno cough, no wheezing, no shortness of breath Cardiacno palpitations, no chest pain, no syncope Chelsie nausea, vomiting, diarrhea, melena, hematochezia GUno urinary retention, no urinary incontinence, no dysuria, no hematuria Musculoskeletalno joint pain, no muscle tenderness Skinno bruising, no rashes, no pruritus Neurono isolated weakness, no paresthesia Psychno depression, no anxiety Physical Exam 2 Physical Exam: General-alert and oriented x3, no fever, no chills HEENT-head atraumatic and normocephalic, pupils equal and reactive to light, extraocular muscles intact Neck-no lymphadenopathy or thyromegaly, trachea midline Chest-clear to auscultation. No rales, wheezing or rhonchi Cardiac-regular rate and rhythm, normal S1 and S2 Abdomen-normal bowel sounds, no hepatosplenomegaly Extremities-no cyanosis, clubbing, or edema Neuro-cranial nerves II through XII intact, motor and sensory function within normal limits, strength symmetrical, no focal deficits Psych-normal affect, normal mood Results & Data Results & Data Vital Signs (Past 12 Hours) Vital Signs Temp Pulse Pulse Resp BP BP Pulse Ox 11/13/24 09:38 11/13/24 09:33 69 11/13/24 07:50 36.5 C 86 18 157/94 H 96 11/13/24 02:45 36.5 C 70 16 156/76 H 95 O2 Del Method 11/13/24 09:38 Room Air 11/13/24 09:33 11/13/24 07:50 Room Air 11/13/24 02:45 Room Air Laboratory Results 11/08/24 18:11 11/13/24 07:09 PG Care Time/CCT Total # of Minutes Spent Total Time Spent with Patient: Total time spent is greater than 50% in coordination of care (as documented) at patient's floor/unit and/or counseling patient: Coding Level of Care Code 36655 SUB INP/OBS CARE 3/50MIN Diagnoses Acute exacerbation of chronic heart failure I50.9 Left ventricular outflow obstruction Q24.8 Chronic anticoagulation Z79.01 Status post mechanical aortic valve replacement Z95.2 Acute kidney injury superimposed on stage 3b chronic kidney disease N17.9; N18.32
--- NOTE | 2024-11-13 14:21 | Cardiology Progress Note ---
Date of Service November 13, 2024 Assessment & Plan (1) Acute exacerbation of chronic heart failure: (2) Status post mechanical aortic valve replacement: (3) Left ventricular outflow obstruction: (4) Acute on chronic renal insufficiency: Plan 84-year-old female presents with acute on chronic heart failure preserved ejection fraction and likely noncompliance with outpatient medications as evidenced subtherapeutic (Normal) INR on admission. Moderate to severe tricuspid regurgitation in addition to moderately elevated continuous-wave velocities across the prosthetic aortic valve per echo. Findings are similar to prior echocardiograms. INR 4.2 today (goal 2.5-3.5) Outpatient warfarin dose: 5 mg daily with 10 mg on Fridays. Hold Coumadin. Caution advised regarding anticoagulation due to history of GI bleed. Volume status/ edema improved since admission. Creatinine minimally improved compared to yesterday. IV Bumex discontinued Hold oral furosemide . Continue Amlodipine, hydralazine, and metoprolol. Elmo Akers, Admission and Anticipated Discharge Date Admission Date: November 08, 2024 Subjective Patient seen in cardiology follow-up. Continues to progress. Did well with walking in the [place] with physical therapy today. Telemetry reveals sinus rhythm in the 70s to 80s. Physical Exam Physical Exam: General: no acute distress and stated age Eyes: conjunctiva are pink and non-injected, sclera clear Neck: normal jugular venous pulse, no hepatojugular reflux Chest: normal shape and normal respiratory effort Lungs: Mildly decreased breath sounds bilaterally at the base Cardiac Exam: - Regular rhythm, crisp prosthetic heart sounds no Abdomen: abdomen soft, non-tender, no abnormal masses and no hepatosplenomegaly Musculoskeletal: no gait disturbance, no weakness Extremities:Trace lower extremity edema Neuro:awake, conversant, follows commands, no focal motor deficits Psych: appropriate affect and insight. Results & Data Vital Signs (Past 12 Hours) Vital Signs Temp Pulse Pulse Resp BP BP Pulse Ox 11/13/24 12:09 36.5 C 80 17 149/92 H 95 11/13/24 09:38 11/13/24 09:33 69 11/13/24 07:50 36.5 C 86 18 157/94 H 96 11/13/24 02:45 36.5 C 70 16 156/76 H 95 O2 Del Method 11/13/24 12:09 Room Air 11/13/24 09:38 Room Air 11/13/24 09:33 11/13/24 07:50 Room Air 11/13/24 02:45 Room Air Laboratory Results Coagulation 11/13/24 Range/Units 07:09 PT 39.8 H (9.0-12.0) Seconds Comprehensive Metabolic Panel 11/13/24 Range/Units 07:09 Sodium 136 (136-145) mmol/L Potassium 3.8 (3.5-5.1) mmol/L Chloride 106 (98-107) mmol/L Carbon Dioxide 20 L (21-32) mmol/L BUN 56 H (6-23) mg/dl Creatinine 2.92 H (0.6-1.2) mg/dl Glucose 85 (70-99(Fasting)) mg/dl Calcium 9.1 (8.6-10.3) mg/dl Albumin 4.0 (3.4-5.0) gm/dl Intake and Output 11/12/24 11/13/24 11/13/24 22:59 06:59 14:59 Intake Total 1450 / 1690 240 / 1690 Output Total Balance 1450 / 1689 239 / 1689 Intake: Oral 1450 / 1690 240 / 1690 Output: Urine Other: # Unmeasured Voids 1 Weight 79.4 kg PG Care Time/CCT Total # of Minutes Spent Total Time Spent with Patient: Total time spent is greater than 50% in coordination of care (as documented) at patient's floor/unit and/or counseling patient: Coding Level of Care Code 66496 SUB INP/OBS CARE 3/50MIN Diagnoses Acute exacerbation of chronic heart failure I50.9 Status post mechanical aortic valve replacement Z95.2 Left ventricular outflow obstruction Q24.8 Acute on chronic renal insufficiency N28.9; N18.9
[2024-11-13] MEDS ORDERED: WARFARIN SOD 2.5 MG TAB PO SCH (16:00)
[2024-11-14 02:54] VITALS: TEMP 97.9
[2024-11-14 07:12] LABS: INR 3.4 (0.9-1.1); Prothrombin Time 33.2 Seconds (9.0-12.0)
[2024-11-14 07:24] LABS: Anion Gap 11.0 (3-11); Blood Urea Nitrogen 54.0 mg/dl (6-23); Calcium 9.2 mg/dl (8.6-10.3); Carbon Dioxide 20.0 mmol/L (21-32); Chloride 107.0 mmol/L (98-107); Creatinine Clr Calc Pharmacy 15.5 ml/min; Glucose 84.0 mg/dl (70-99(Fasting)); Potassium 3.8 mmol/L (3.5-5.1); Sodium 138.0 mmol/L (136-145)
[2024-11-14 08:15] VITALS: BP 150/73; RESP 16; O2SAT 98
--- NOTE | 2024-11-14 11:30 | Discharge Summary ---
Discharge Summary Date of Service November 14, 2024 Principal Dx & Hospital Course #1 = Principal Diagnosis (1) Acute exacerbation of chronic heart failure: Diastolic in nature. Chest x-ray done on November 12 looked better. Diuretics are on hold due to creatinine elevation and serum osmolarity elevation. Creatinine level is now trending down. She appears to be much better today, November 14, and is completely alert and oriented. She remains on room air. Appreciate cardiology consultation and recommendations (2) Left ventricular outflow obstruction: History of mechanical aortic valve replacement on Coumadin therapy. INR is 3.4 today, November 14, and Coumadin has been restarted at 2.5 mg daily. She will need INR checked on a daily basis going forward (3) Chronic anticoagulation: Coumadin therapy due to mechanical aortic valve. INR ranges 2.5-3.5 (4) Status post mechanical aortic valve replacement: Coumadin therapy has been restarted today, November 14. INR is 3.4 now. (5) Acute kidney injury superimposed on stage 3b chronic kidney disease: Creatinine trended upward with diuresis to 3.0 but is now downtrending. Creatinine is 2.6 today, November 14. Diuretic will be restarted at discharge. Monitor intake and output. Serial labs. Plan Discharge to [facility] todayNovember 14 Admission HPI Per Admitting Provider The patient is a 84-year-old female with a past medical history including medical noncompliance, hypertension, gait disturbance, cerebral microvascular disease, acute encephalopathy, hyperlipidemia, glaucoma, CHF, GERD, and atrial fibrillation prescribed warfarin. The patient is not able to contribute to HPI or review of systems due to fatigue. From the emergency department she received Tylenol 1 g p.o., nitro paste 0.5 inches, and furosemide 20 mg IV. Chest x-ray was suggestive of mild pulmonary edema, and patient was noted to have 1+ pitting edema pretibially. Patient's INR was 1.0, which is is consistent with her history of medical noncompliance. Discharge Exam General-alert and oriented x3, no fever, no chills HEENT-head atraumatic and normocephalic, pupils equal and reactive to light, extraocular muscles intact Neck-no lymphadenopathy or thyromegaly, trachea midline Chest-clear to auscultation. No rales, wheezing or rhonchi Cardiac-regular rate and rhythm, normal S1 and S2 Abdomen-normal bowel sounds, no hepatosplenomegaly Extremities-no cyanosis, clubbing, or edema Neuro-cranial nerves II through XII intact, motor and sensory function within normal limits, strength symmetrical, no focal deficits Psych-normal affect, normal mood Discharge Plan Discharge Items Patient Disposition: Transfer Inpatient Rehab Fac Reason For Visit: CHF, SUBTHERAPEUTIC INR Discharge Diagnosis: Acute on chronic diastolic CHF, acute on chronic kidney disease stage III secondary to excessive diuresis Condition on Discharge: Good Activity: Resume your previous activity Non-emergency contact: Primary Care Provider and Director Orange Call non-emergency contact if: you have any medication questions and your symptoms worsen Follow-up/Referrals: Song Pritchard CRNP [Primary Care Provider] - Diet: Regular and Heart Healthy Addtl Attending Provider Instructions: See your primary care provider and cement cutter as soon as possible after discharge from [facility] Pending Studies at Discharge: No Stand-Alone Forms: My [facility] Skilled Items Patient informed of condition?: Yes DNR: Yes Discharge Level of Care: Acute rehab Communicable Disease: No Discharge Prognosis: Stable Lines: None Urinary Catheter: No Medications and DC Order Prescriptions: New warfarin [Jantoven] 2.5 mg Tablet 2.5 mg PO DAILY@1600 Qty: 0 0RF Continued gabapentin 100 mg capsule 100 mg PO BID PRN (Reason: pain) Qty: 180 3RF hydralazine 10 mg tablet 10 mg PO TID Qty: 270 3RF famotidine 20 mg tablet 20 mg PO DAILY Qty: 90 3RF nitroglycerin 0.4 mg tablet, sublingual 0.4 mg sublingual DAILY PRN (Reason: Chest Pain) atorvastatin 40 mg tablet 40 mg PO QAM Qty: 90 3RF metoprolol succinate 25 mg tablet extended release 24 hr 12.5 mg PO QAM Qty: 45 3RF (DME) Shower Chair Misc See Rx Instructions .Route Qty: 1 0RF Rx Instructions: As directed, bench that extends from outside to inside of tub benzonatate 200 mg capsule 200 mg PO TID PRN (Reason: cough) Qty: 30 0RF latanoprost 0.005 % Drops 1 drp OPB PM Rx Instructions: both eyes dorzolamide 2 % drops 1 drp OPB BID brimonidine 0.2 % drops 1 drp OPB TID lidocaine 5 % Adhesive Patch,Medicated 1 patch transdermal QAM Qty: 10 0RF pantoprazole 40 mg tablet,delayed release (DR/EC) 40 mg PO [facility] lisinopril 10 mg tablet 10 mg PO QAM furosemide 20 mg tablet 20 mg PO 3XWK Rx Instructions: sunday,sunday,sunday mornings amlodipine 10 mg tablet 10 mg PO QAM tramadol 50 mg tablet 50 mg PO Q8 PRN (Reason: pain) Discontinued warfarin 5 mg tablet 5 - 10 mg PO QPM Rx Instructions: as directed by anticoagulation clinic Discharge Orders: Discharge Order- CHF (Routine); Ordered 11/14/24 Ordered By: Dwayne Camargo Admission Data Admit Date/Time: 11/08/24 00:52 Attending Provider: Dwayne Camargo Admit Provider: Remi Wild Primary Care Provider: Song Pritchard Other Providers: Remi Wild; Elmo Akers; [facility] Hospital Stay Data Consultations 11/08/24 00:30 ED Decision to Admit Stat 11/08/24 17:36 Consult Cardiology Routine Diagnostic Imagining Performed 11/07/24 21:20 CT cervical spine wo con Stat CT head/brain wo con Stat Pending Results Patient Have Any Pending Studies at Discharge: No Discharge Instructions Given to Patient (Per Discharging Provider) See your primary care provider and cement cutter as soon as possible after discharge from [facility] Total Time Total Time Spent Total Time Spent (In Minutes): 50 minutes Coding Level of Care Code 19308 INP/OBS DISCH >30 MIN Diagnoses Acute exacerbation of chronic heart failure I50.9 Left ventricular outflow obstruction Q24.8 Chronic anticoagulation Z79.01 Status post mechanical aortic valve replacement Z95.2 Acute kidney injury superimposed on stage 3b chronic kidney disease N17.9; N18.32
[2024-11-14 11:46] VITALS: PULSE 70
--- NOTE | 2024-11-14 13:52 | Cardiology Progress Note ---
Date of Service November 14, 2024 Assessment & Plan (1) Acute exacerbation of chronic heart failure: (2) Status post mechanical aortic valve replacement: (3) Left ventricular outflow obstruction: (4) Acute on chronic renal insufficiency: Plan 84-year-old female presents with acute on chronic heart failure preserved ejection fraction and likely noncompliance with outpatient medications as evidenced subtherapeutic (Normal) INR on admission. Moderate to severe tricuspid regurgitation in addition to moderately elevated continuous-wave velocities across the prosthetic aortic valve per echo. Findings are similar to prior echocardiograms. INR 3.4 today (goal 2.5-3.5) Outpatient warfarin dose: 5 mg daily with 10 mg on Fridays.Proceed with 2.5 mg daily for now. Resume furosemide 20 mg 3 days/week Continue Amlodipine, hydralazine, and metoprolol. Patient stable for [facility] OswaldDO Admission and Anticipated Discharge Date Admission Date: November 08, 2024 Subjective Patient seen in cardiology follow up . Feeling well. Telemetry revealed SR this am. Physical Exam Physical Exam: General: no acute distress and stated age Eyes: conjunctiva are pink and non-injected, sclera clear Neck: normal jugular venous pulse, no hepatojugular reflux Chest: normal shape and normal respiratory effort Lungs: Mildly decreased breath sounds bilaterally at the base Cardiac Exam: - Regular rhythm, crisp prosthetic heart sounds no Abdomen: abdomen soft, non-tender, no abnormal masses and no hepatosplenomegaly Musculoskeletal: no gait disturbance, no weakness Extremities:Trace lower extremity edema Neuro:awake, conversant, follows commands, no focal motor deficits Psych: appropriate affect and insight. Results & Data Vital Signs (Past 12 Hours) Vital Signs Temp Pulse Pulse Resp BP BP BP 11/14/24 11:44 36.6 C 70 16 153/81 H 134/72 150/73 H 11/14/24 09:02 76 11/14/24 07:20 36.6 C 70 16 150/73 H 11/14/24 02:51 36.6 C 76 17 153/81 H Pulse Ox O2 Del Method 11/14/24 11:44 98 11/14/24 09:02 11/14/24 07:20 98 Room Air 11/14/24 02:51 95 Room Air [place] [id number] SUB INP/OBS CARE 2/35MIN Patient Type Established History Comprehensive Exam Comprehensive Medical Decision Making Moderate Complexity Diagnoses Acute exacerbation of chronic heart failure I50.9 Status post mechanical aortic valve replacement Z95.2 Left ventricular outflow obstruction Q24.8 Acute on chronic renal insufficiency N28.9; N18.9
[2024-11-14] MEDS ORDERED: WARFARIN SOD 2.5 MG TAB PO SCH (16:00)
== END 2024-11-14 12:51 | DRG 291 ==
LOC: ED 20:49 → EDINP 11-08 00:52 → SUATTDRO 11-08 00:52 → 3N 11-08 02:09 → 2S 11-09 08:53

== ENCOUNTER 2025-03-18 08:43 | Inpatient (IN) ==
--- NOTE | 2025-03-18 09:33 | XRay Report ---
XR chest 1V portable CLINICAL HISTORY: Chest pain, nonspecific COMPARISON STUDY: Chest radiograph November 12, 2024. Chest CT April 04, 2024. FINDINGS: Status post median sternotomy. Moderate cardiomegaly is again noted. There is no pneumothor ax. Suspected trace bilateral pleural effusions. Interstitial thickening has progressed when compared to prior exam. There is no consolidation to suggest pneumonia. Severe degenerative changes within th e shoulders are incidentally noted. IMPRESSION: Cardiomegaly with moderate interstitial pulmonary edema, increased since prior study ches t radiograph. ACT 112: Negative or not required by law. Electronically signed by: Nathanael Yip M.D. 03/18/2025 9:32 AM
--- NOTE | 2025-03-18 09:40 | Emergency Department Note ---
Impression & Plan Hypertensive emergency, Acute exacerbation of chronic heart failure, Medical non-compliance, Substernal chest pain, Neck pain, Elevated troponin ED Provider Note NAME: CASTILLO CHAMORRO AGE: 84 SEX: F : 1940 ARRIVES VIA: Ambulance INFORMANT: Patient ED PROVIDER(S): Rajan Ma MD CHIEF COMPLAINT: Chest, neck pain, shortness of breath. PLAN: Disposition: Admit MEDICAL DECISION MAKING: The patient is a pleasant 84-year-old woman with past medical history of mechanical aortic valve replacement on warfarin, hypertension, CHF, paroxysmal atrial fibrillation, CKD, glaucoma, history of medication noncompliance who presents to the Emergency Department via EMS for evaluation of chest and left- sided neck pain since last night with associated shortness of breath. Patient is a poor historian. She reports she is taking all her medications. She does admit that she likes salt in her diet. She reports that her legs have become more swollen. She denies any fevers or productive cough. On evaluation the patient is uncomfortable but no acute distress, afebrile with blood pressure 170s/80s and vital signs otherwise stable. She appears hypervolemic. Audible click noted on auscultation/cardiac exam. 1+ bilateral extremity pitting edema. EKG without overt acute ischemia. Chest x-ray demonstrates congestive change with vascular congestion and interstitial pulmonary edema. WBC, H/H and platelets within normal limits. Chemistry without metabolic acidosis. Creatinine 2.75 slightly increased from recent baseline in setting of CKD. LFTs unremarkable. CPK within normal limits. High-sensitivity troponin 3.6, nonspecific as his BNP 400 in setting of CKD though increased from November.. Lipase not elevated. TSH within normal limits. INR did result 1.9, subtherapeutic. CT of the neck and chest obtained without contrast given patient's CKD. Congestive failure is described with pulmonary edema and trace pleural effusion. No additional acute abnormalities are identified. Patient was treated with application of nitroglycerin paste on arrival due to concern for hypertensive emergency associated chest pain and pulmonary edema. Following this and IV APAP the patient was more comfortable. IV Lasix ordered for diuresis. Patient agrees with plan for admission for further management. [facility], [place] [facility] who will evaluate the patient for admission. Further management per admitting team. Triage Nursing notes reviewed and agree them. Prior/external medical records reviewed Vital Signs: reviewed Differential diagnosis: Cardiac ischemia, aortic dissection, pulmonary embolism, pneumothorax, pneumonia, pericarditis, myocarditis, esophageal rupture, GERD, cholecystitis, pancreatitis, musculoskeletal, as well as other pathologies. ER treatment provided: See below. Diagnostics interpreted by me: ECG: Sinus rhythm with first-degree AV block, 73 bpm, no ectopy, no overt ST elevation or depression, QTc 511, QRS 156. Cardiac Monitoring: An order for continuous cardiac monitoring was placed and demonstrated sinus rhythm, first-degree block, 73 bpm. Laboratory studies: See below Imaging studies: See below Consultation(s): [facility] [place], with [facility] Lozano hospitalist HPI: Per MDM. ROS: See above HPI for pertinent positives & negatives. A total of 10 systems reviewed and were otherwise negative. VITALS:See Below PHYSICAL EXAMINATION: GENERAL: Awake, alert, chronically ill-appearing, in no distress, BMI 34.5. HENT: Normocephalic, atraumatic. Oropharynx unremarkable. EYES: Normal conjunctiva. Sclera non-icteric. NECK: Supple. No nuchal rigidity. FROM. No JVD. Mild JVD RESPIRATORY: Rales of bilateral mid to lower lung ge. CARDIAC: Regular rate, normal rhythm. Audible click on cardiac auscultation. Extremities warm and well perfused. Pulses equal. ABDOMEN: Soft, non-distended. No tenderness to palpation. No rebound or guarding. No masses. MUSCULOSKELETAL: Chest examination reveals no tenderness. The back is symmetrical on inspection without obvious abnormality. There is no CVA tenderness to palpation. No joint edema. LOWER EXTREMITIES: Calves are equal size bilaterally and non-tender. 1+ bilateral lower extremity pitting edema. No discoloration. NEURO: Normal sensorium. No sensory or motor deficits noted. SKIN: No rash or jaundice noted. ED COURSE: Critical Care: I have personally spent greater than 35 minutes of critical care time in the direct management of this patient. This includes bedside care, interpretation of diagnostic studies, and testing, discussion with consultants, patient, and family members, and other required patient management activities. This 35 minutes is in excess of all separately billable procedures. Rajan Ma MD Past Med/Surg History Problem List (Updated 03/19/25 @ 00:09 by Rajan Ma MD) Elevated troponin (Acute) Neck pain (Acute) Substernal chest pain (Acute) Medical non-compliance (Acute) Hypertensive emergency (Acute) Acute kidney injury superimposed on stage 3b chronic kidney disease Acute exacerbation of chronic heart failure (Acute) Atrial fibrillation (Chronic) Gait disturbance (Chronic) Cerebral microvascular disease (Chronic) Chronic back pain (Chronic) Glaucoma (Chronic) Medical History Torticollis, acquired Chronic anticoagulation Heart failure with preserved ejection fraction Hypertension Mass of head of pancreas Carotid artery stenosis Hypertensive urgency Pneumonia CKD (chronic kidney disease) stage 3, GFR 30-59 ml/min HTN (hypertension) with goal to be determined On warfarin therapy Mitral stenosis Atrial fibrillation with RVR Upper GI bleed Acute blood loss anemia Aortic stenosis Chest tightness Hydronephrosis of right kidney Macrocytic anemia Current every day smoker On warfarin therapy Surgical History Status post mechanical aortic valve replacement Status post hip replacement Status post knee replacement H/O mechanical aortic valve replacement Family History Brother Hypertension Heart disease Sister Hypertension Heart disease Mother Hypertension Heart disease Myocardial infarction Father Hypertension Heart disease Denies family history of Ovarian cancer Prostate cancer Breast cancer Lung cancer Colorectal cancer Stroke Social History Smoking Status: Current every day smoker Tobacco Type: Cigarettes Age Started Using Tobacco: 38; packs per day: 0.50; Cigarettes Per Day: half pack; Second Hand Exposure: No; Do You Dip or Chew Tobacco: No; Tobacco Cessation Education Requested by Patient: No Hx Alcohol Use: No Hx Substance Use: No Preferred Language: [place] Communication Ability: Effective Visual Impairment: Limited Hearing Ability: Normal Fuel Storage Technician Required: No Beliefs That Will Affect Care: None marital status: / Current Living Situation: Alone Current Living Situation Comment: [employer] current occupational status: retired How many Children do You have: 4 Other Information That Helps Us Care for You: No Feels Safe at Home: Yes Safety Concerns: Feels Safe At This Time Childhood Exposure to Second-Hand Smoke: Yes Diet: low salt caffeine: Yes Dental Care, Regularly: No Physical Activity Frequency: Does not Exercise Seatbelt Use: always Sunscreen Use: No Assistive Devices: Walker Allergies Allergies Allergy/AdvReac Type Severity Reaction Status Date / Time No Known Allergies Allergy Verified 11/28/24 09:30 Home Meds Home Medications Medication Instructions Recorded Confirmed latanoprost 0.005 % eye drops 1 drp OPB PM 07/31/23 03/18/25 brimonidine 0.2 % eye drops 1 drp OPB TID 03/18/24 03/18/25 dorzolamide 2 % eye drops 1 drp OPB BID 03/18/24 03/18/25 nitroglycerin 0.4 mg sublingual 0.4 mg sublingual DAILY PRN Chest 09/17/24 03/18/25 tablet Pain amlodipine 10 mg tablet 10 mg PO QAM 11/07/24 03/18/25 pantoprazole 40 mg tablet,delayed 40 mg PO AMHS 11/07/24 03/18/25 release tramadol 50 mg tablet 50 mg PO Q8 PRN pain 11/07/24 03/18/25 Previous Rx's Medication Instructions Recorded Shower Chair #1 ea 11/20/23 lidocaine 5 % topical patch 1 patch transdermal QAM #10 ea 08/29/24 atorvastatin 40 mg tablet 40 mg PO QAM #90 tabs 09/17/24 metoprolol succinate 25 mg 12.5 mg (1/2 x 25 mg) PO QAM #45 09/17/24 tablet,extended release 24 hr tabs gabapentin 100 mg capsule 100 mg PO BID PRN pain #180 caps 10/06/24 famotidine 20 mg tablet 20 mg PO DAILY #90 tabs 10/15/24 benzonatate 200 mg capsule 200 mg PO TID PRN cough #30 caps 10/17/24 hydralazine 10 mg tablet 10 mg PO TID #270 tabs 11/24/24 warfarin 5 mg tablet 5 mg PO DAILY #90 tabs 11/25/24 furosemide 20 mg tablet 20 mg PO 3XWK #90 tabs 11/28/24 Results & Data (ED) Vital Signs Vital Signs - 24 hr 03/18/25 09:04 03/18/25 09:04 03/18/25 09:04 Temperature 36.6 C 36.6 C Temperature Source Oral Oral Pulse Rate 77 Pulse Rate [Apical] 77 Pulse Rhythm Regular Pulse Rhythm [Apical] Regular Pulse Strength Normal Pulse Strength [Apical] Normal Respiratory Rate 18 18 Respiratory Effort / Characteristics Non-Labored Spontaneous Non-Labored Spontaneous Respiratory Depth Normal Normal Respiratory Pattern Regular Regular Blood Pressure 173/89 H Blood Pressure [Right Arm] 173/89 H Blood Pressure Mean 117 Blood Pressure Mean [Right Arm] 117 Blood Pressure Position Lying Blood Pressure Position [Right Arm] Lying Pulse Oximetry 97 97 97 Oxygen Delivery Method Room Air Room Air Room Air Sepsis Recent Fever Within 48 Hours No Sepsis New/Unexplained Change in Mental Status No Sepsis Action Taken by Nursing No Action Required 03/18/25 09:04 03/18/25 09:10 03/18/25 11:00 Temperature Temperature Source Pulse Rate 77 72 Pulse Rate [Apical] 74 Pulse Rhythm Regular Pulse Rhythm [Apical] Regular Pulse Strength Pulse Strength [Apical] Normal Respiratory Rate 18 18 Respiratory Effort / Characteristics Non-Labored Spontaneous Respiratory Depth Normal Respiratory Pattern Regular Blood Pressure Blood Pressure [Right Arm] 138/73 Blood Pressure Mean Blood Pressure Mean [Right Arm] 94 Blood Pressure Position Blood Pressure Position [Right Arm] Lying Pulse Oximetry 97 96 Oxygen Delivery Method Room Air Room Air Sepsis Recent Fever Within 48 Hours Sepsis New/Unexplained Change in Mental Status Sepsis Action Taken by Nursing 03/18/25 13:00 03/18/25 13:15 Temperature Temperature Source Pulse Rate 77 Pulse Rate [Apical] 83 Pulse Rhythm Pulse Rhythm [Apical] Regular Pulse Strength Pulse Strength [Apical] Normal Respiratory Rate 17 Respiratory Effort / Characteristics Non-Labored Spontaneous Respiratory Depth Normal Respiratory Pattern Regular Blood Pressure Blood Pressure [Right Arm] 143/78 H Blood Pressure Mean Blood Pressure Mean [Right Arm] 99 Blood Pressure Position Blood Pressure Position [Right Arm] Lying Pulse Oximetry 95 Oxygen Delivery Method Room Air Sepsis Recent Fever Within 48 Hours Sepsis New/Unexplained Change in Mental Status Sepsis Action Taken by Nursing Laboratory Data 03/18/25 09:53 03/18/25 09:53 Lab Results 03/18/25 03/18/25 03/18/25 Range/Units 09:53 10:00 12:00 WBC 7.99 (4.8-10.8) K/ul RBC 3.66 L (4.20-5.40) M/uL Hgb 12.9 (12.0-16.0) g/dL POC Hgb 13.6 (12.0-16.0) g/dl Hct 40.3 (37.0-47.0) % POC Hct 40 (37-47) % MCV 110.1 H (80.0-100.0) fL MCH 35.2 H (25.0-34.0) pg MCHC 32.0 (32.0-36.0) g/dL RDW Std Deviation 64.1 H (36.4-46.3) fL RDW Coeff of Xavier 15.7 H (11.5-14.5) % Plt Count 245 (130-400) K/uL MPV 9.6 (9.4-12.4) fL Immature Gran % (Auto) 0.4 % Neut % (Auto) 78.1 % Lymph % (Auto) 11.8 % Harmon % (Auto) 6.6 % Eos % (Auto) 2.8 % Baso % (Auto) 0.3 % Neut # (Auto) 6.25 (1.40-6.50) K/uL Lymph # (Auto) 0.94 L (1.20-3.40) K/uL Harmon # (Auto) 0.53 (0.11-0.59) K/uL Eos # (Auto) 0.22 (0.00-0.50) K/uL Baso # (Auto) 0.02 (0.00-0.20) K/uL Immature Gran # (Auto) 0.03 (0.01-0.20) K/uL Macrocytosis Present Echinocytes 1+ PT Cancelled 19.3 H INR Cancelled 1.9 H APTT Cancelled 39 H PTT Ratio Cancelled 1.4 POC Sodium 144 (135-144) mmol/L Sodium 141 (136-145) mmol/L POC Potassium 3.9 (3.3-5.0) mmol/L Potassium 4.1 (3.5-5.1) mmol/L POC Chloride 112 (101-112) mmol/L Chloride 112 H (98-107) mmol/L Carbon Dioxide 21 (21-32) mmol/L POC Total CO2 19 L (24-31) mmol/L Anion Gap 8 (3-11) POC Anion Gap 17.0 (16-25) mmol/L POC BUN 29 H (7-18) mg/dl BUN 29 H (6-23) mg/dl Creatinine 2.75 H (0.6-1.2) mg/dl POC Creatinine 3.0 H (0.6-1.3) mg/dl Est Cr Clr Drug Dosing 15.5 ml/min eGFR 16.30 BUN/Creatinine Ratio 10.5 (10-20) Glucose 90 (70-99(Fasting)) mg/dl POC Glucose (other) 86 (70-99) mg/dl Calcium 8.5 L (8.6-10.3) mg/dl POC Ioniz Calcium Nikos 1.09 L (1.12-1.32) mmol/l Magnesium 2.5 H (1.7-2.4) mg/dl Total Bilirubin 0.6 (0.2-1.0) mg/dl AST 28 (13-39) U/L ALT 15 (7-52) U/L Alkaline Phosphatase 147 H (34-104) U/L Total Creatine Kinase 92 (26-192) U/L Troponin I High Sens 30.6 H 28.1 H (0-14) pg/ml B-Natriuretic Peptide 401 H (0-100) pg/ml Total Protein 6.8 (6.0-8.3) gm/dl Albumin 2.9 L (3.4-5.0) gm/dl Globulin 3.9 (2.5-4.0) gm/dl Albumin/Globulin Ratio 0.7 L (0.9-2) Lipase 47 (11-82) U/L Procalcitonin 0.09 (0-0.5) ng/ml TSH 4.354 (0.300-4.500) uIu/ml Administered Medications Acetaminophen (Acetaminophen 325 Mg Tab) 650 mg PO Q4H PRN PRN Reason: Pain or Fever Stop: 04/17/25 14:06 Last Admin: 03/18/25 20:33 Dose: 650 mg Documented By: MODESTA Brimonidine Tartrate (Brimonidine Tartrate 0.2% 5ml) 1 drops OPB TID [facility] Stop: 04/17/25 20:59 Last Admin: 03/18/25 20:30 Dose: 1 drops Documented By: MODESTA Dorzolamide HCl (Dorzolamide Hcl 2% Oph Soln 10 Ml Btl) 1 drops OPB BID [facility] Stop: 04/17/25 20:59 Last Admin: 03/18/25 20:30 Dose: 1 drops Documented By: MODESTA Furosemide (Furosemide 40 Mg/4 Ml Vial) 40 mg IV BID [facility] Stop: 04/17/25 20:59 Last Admin: 03/18/25 20:29 Dose: 40 mg Documented By: MODESTA Hydralazine HCl (Hydralazine 10 Mg Tab) 10 mg PO TID [facility] Stop: 04/17/25 20:59 Last Admin: 03/18/25 20:30 Dose: 10 mg Documented By: MODESTA Heparin Sodium/Dextrose (Heparin 89831 Unit/500 Ml D5w) 25,000 units in 500 mls @ 24 mls/hr IV .[id number] [facility]; Protocol Stop: 04/17/25 18:44 Last Admin: 03/18/25 19:28 Dose: 1,200 units/hr, 24 mls/hr Documented By: MODESTA Co-signed By: SANTA Latanoprost (Latanoprost 0.005% Op Soln 2.5 Ml Btl) 1 drops OPB PM [facility] Stop: 04/17/25 20:59 Last Admin: 03/18/25 20:30 Dose: 1 drops Documented By: MODESTA Melatonin (Melatonin 3 Mg Tab) 3 mg PO HS PRN PRN Reason: Sleep Stop: 04/17/25 14:17 Last Admin: 03/18/25 20:29 Dose: 3 mg Documented By: MODESTA Pantoprazole Sodium (Pantoprazole 40 Mg Tab) 40 mg PO BID [facility] Stop: 04/17/25 20:59 Last Admin: 03/18/25 20:29 Dose: 40 mg Documented By: MODESTA Discontinued Medications Furosemide (Furosemide Inj 20 Mg/2 Ml Vial) 20 mg IV ONE ONE Stop: 03/18/25 11:07 Last Admin: 03/18/25 11:14 Dose: 20 mg Documented By: JAZ Heparin Sodium (Porcine) (Heparin Sod (Porcine) 1000 Unit/Ml) 5,000 units IV NOW ONE Stop: 03/18/25 18:46 Last Admin: 03/18/25 19:28 Dose: 5,000 units Documented By: MODESTA Co-signed By: SANTA Acetaminophen (Ofirmev) 1,000 mg in 100 mls @ 400 mls/hr IV NOW STA Stop: 03/18/25 09:53 Last Infusion: 03/18/25 11:14 Dose: Infused Documented By: Admin: 03/18/25 09:52 Dose: 400 mls/hr Documented By: JAZ Morphine Sulfate (Morphine Sulfate 2 Mg/Ml Carp) 1 mg IV NOW STA Stop: 03/18/25 14:24 Last Admin: 03/18/25 14:44 Dose: 1 mg Documented By: JAZ Nitroglycerin (Nitroglycerin 2% Ointment 30gm Tube) 1 inch EXT NOW ONE Stop: 03/18/25 09:45 Last Admin: 03/18/25 09:49 Dose: 1 inch Documented By: JAZ Warfarin Sodium (Warfarin Sod 10 Mg Tab) 10 mg PO NOW ONE Stop: 03/18/25 22:26 Last Admin: 03/18/25 22:49 Dose: Not Given Documented By: MODESTA Warfarin Sodium (Warfarin Sod 7.5 Mg Tab) 7.5 mg PO NOW ONE Stop: 03/18/25 22:26 Last Admin: 03/18/25 23:04 Dose: 7.5 mg Documented By: MODESTA Imaging Data Radiologist's Impression: Chest X-Ray 03/18/25 09:04 XR chest 1V portable CLINICAL HISTORY: Chest pain, nonspecific COMPARISON STUDY: Chest radiograph November 12, 2024. Chest CT April 04, 2024. FINDINGS: Status post median sternotomy. Moderate cardiomegaly is again noted. There is no pneumothorax. Suspected trace bilateral pleural effusions. Interstitial thickening has progressed when compared to prior exam. There is no consolidation to suggest pneumonia. Severe degenerative changes within the shoulders are incidentally noted. IMPRESSION: Cardiomegaly with moderate interstitial pulmonary edema, increased since prior study chest radiograph. ACT 112: Negative or not required by law. Electronically signed by: Nathanael Yip M.D. 03/18/2025 9:[address] 03/18/25 09:43 CT SCAN OF THE CHEST WITHOUT IV CONTRAST CLINICAL HISTORY: Left-sided chest pain. COMPARISON STUDY: Chest x-ray dated 03/18/2025. Chest CT dated 04/04/2024. TECHNIQUE: CT scan of the thorax was performed from the thoracic inlet to the upper abdomen. Images are reviewed in the axial, sagittal, and coronal planes. IV contrast was not administered for this examination as per the referring clinician. A dose lowering technique was utilized adhering to the principles of ALARA. FINDINGS: Thyroid: Mildly enlarged and heterogeneous. Thoracic aorta: There is advanced atherosclerotic calcification of the thoracic aorta, which is normal in caliber and demonstrates standard 3-vessel arch anatomy. Heart: The patient is status post midline sternotomy. Findings suggest previous aortic valve surgery. The heart is enlarged and without pericardial effusion. The coronary arteries are densely calcified. The pulmonary trunk is dilated, measuring 4 cm in diameter. This suggests pulmonary artery hypertension. Lungs and pleural spaces: Evaluation of the lung parenchyma is degraded by motion artifact. Emphysema is observed. Diffuse interlobular septal thickening is consistent with congestive failure. Mild dependent airspace consolidation is seen at both lung bases, left side greater than right. There is trace left pleural effusion. Mediastinum: There is no mediastinal lymphadenopathy. Yolis: Not well assessed without IV contrast. Axillae: There is no axillary lymphadenopathy. Upper abdomen: Upper pole renal cysts are partially visualized and measure up to 5 cm. Partially visualized upper abdominal viscera is within normal limits. Skeletal structures: The skeletal structures are osteopenic. Degenerative change and kyphoscoliosis is noted in the thoracic spine. Advanced arthritic change is seen in the shoulders. No lytic or blastic bony lesions are seen. IMPRESSION: 1. Cardiomegaly and emphysema with evidence of congestive failure. 2. Dependent airspace opacities at both lungs could represent a combination of atelectasis and mild pulmonary edema. Correlate clinically for evidence of a superimposed pneumonia/aspiration pneumonitis. Radiographic follow-up to resolution is recommended. 3. Trace left pleural effusion. 4. There is evidence of pulmonary artery hypertension. 5. Additional findings as above. ACT 112: Negative or not required by law. Electronically signed by: Omid Da Silva M.D. 03/18/2025 10:54 AM Soft Tissue Neck CT 03/18/25 09:43 CT soft tissue neck wo con HISTORY: 84 years-old Female L neck[facility]st [facility] COMPARISON: CT cervical spine 11/07/2024 TECHNIQUE: Multiple axial CT images of the soft tissues of the neck were obtained without IV contrast. A dose lowering technique was used consistent with the principals of DHEERAJ. FINDINGS: Involutional changes with white matter hypodensities suggestive of chronic microvascular ischemic disease. Multinodular thyroid with nodules measuring up to 11 mm on the right. Partially imaged median sternotomy wires. Extensive atherosclerosis of the thoracic aortic arch with additional atherosclerosis of the carotid arteries. There is a stent present within the proximal cervical segment left ICA. Intralobular septal thickening of the lungs with pulmonary emphysema. 5 mm groundglass nodular focus of the left lung apex on image 318 series 6, new from prior. No acute inflammatory changes, pathologically enlarged lymph nodes or suspicious mass lesions identified on this noncontrast study. Unremarkable glottis and subglottic airway. Degenerative changes of the cervical and thoracic spine without acute fracture identified. IMPRESSION: 1. No acute inflammatory changes, fluid collections or pathologically enlarged lymph nodes. 2. Incidental findings as above. ACT 112: Negative or not required by law. The above report was generated using voice recognition software. It may contain grammatical, syntax or spelling errors. Electronically signed by: Ildefonso Gamez M.D. 03/18/2025 10:33 AM Discharge Plan Visit Data Chief Complaint: Neck Injury/Pain Stated Complaint: Neck Injury/Pain ED Provider: Rajan Ma Discharge Problem: Hypertensive emergency, Acute exacerbation of chronic heart failure, Medical non-compliance, Substernal chest pain, Neck pain, Elevated troponin Patient Disposition: Admitted As Inpatient Condition: Serious Discharge Instructions Interventions: ED Discharge Assessment Last Done: 03/18/25 16:44
[2025-03-18] MEDS: NITROGLYCERIN 2% OINTMENT 30GM TUBE EXT ONE (09:49)
[2025-03-18] MEDS: ACETAMINOPHEN 1,000 MG/100 ML VIAL IV STA (09:52)
[2025-03-18 10:11] LABS: Hematocrit (blood only) 40.3 % (37.0-47.0); Hemoglobin 12.9 g/dL (12.0-16.0); Immature Granulocytes # (auto) 0.03 K/uL (0.01-0.20); Immature Granulocytes % (auto) 0.4 %; Mean Corpuscular Hemoglobin 35.2 pg (25.0-34.0); Mean Corpuscular Volume 110.1 fL (80.0-100.0); Platelet Count 245 K/uL (130-400); RDW Standard Deviation 64.1 fL (36.4-46.3); Red Blood Count 3.66 M/uL (4.20-5.40); White Blood Count 7.99 K/ul (4.8-10.8)
[2025-03-18 10:30] LABS: Alanine Aminotransferase 15.0 U/L (7-52); Albumin Globulin Ratio 0.7 (0.9-2); Albumin Level 2.9 gm/dl (3.4-5.0); Alkaline Phosphatase 147.0 U/L (34-104); Anion Gap 8.0 (3-11); Bilirubin,Total 0.6 mg/dl (0.2-1.0); Blood Urea Nitrogen 29.0 mg/dl (6-23); Calcium 8.5 mg/dl (8.6-10.3); Carbon Dioxide 21.0 mmol/L (21-32); Chloride 112.0 mmol/L (98-107); Creatine Kinase 92.0 U/L (26-192); Creatinine Clr Calc Pharmacy 15.5 ml/min; Globulin 3.9 gm/dl (2.5-4.0); Glucose 90.0 mg/dl (70-99(Fasting)); Lipase 47.0 U/L (11-82); Magnesium 2.5 mg/dl (1.7-2.4); Potassium 4.1 mmol/L (3.5-5.1); Sodium 141.0 mmol/L (136-145); Total Protein 6.8 gm/dl (6.0-8.3)
[2025-03-18 10:31] LABS: Macrocytosis Present
--- NOTE | 2025-03-18 10:35 | CT Scan Report ---
CT soft tissue neck wo con HISTORY: 84 years-old Female L neck/chest pain, mech valve acute neck pain COMPARISON: CT cervical spine 11/07/2024 TECHNIQUE: Multiple axial CT images of the soft tissues of the neck were obtained without IV contrast . A dose lowering technique was used consistent with the principals of DHEERAJ. FINDINGS: Involutional changes with white matter hypodensities suggestive of chronic microvascular ischemic dis ease. Multinodular thyroid with nodules measuring up to 11 mm on the right. Partially imaged median s ternotomy wires. Extensive atherosclerosis of the thoracic aortic arch with additional atherosclerosi s of the carotid arteries. There is a stent present within the proximal cervical segment left ICA. Intralobular septal thickening of the lungs with pulmonary emphysema. 5 mm groundglass nodular focus of the left lung apex on image 318 series 6, new from prior. No acute inflammatory changes, pathologi sandra enlarged lymph nodes or suspicious mass lesions identified on this noncontrast study. Unremarka ble glottis and subglottic airway. Degenerative changes of the cervical and thoracic spine without ac nooksack fracture identified. IMPRESSION: 1. No acute inflammatory changes, fluid collections or pathologically enlarged lymph nodes. 2. Incidental findings as above. ACT 112: Negative or not required by law. The above report was generated using voice recognition software. It may contain grammatical, syntax o r spelling errors. Electronically signed by: Ildefonso Gamez M.D. 03/18/2025 10:33 AM
[2025-03-18 10:44] LABS: Thyroid Stimulating Hormone 4.354 uIu/ml (0.300-4.500)
--- NOTE | 2025-03-18 10:56 | CT Scan Report ---
CT SCAN OF THE CHEST WITHOUT IV CONTRAST CLINICAL HISTORY: Left-sided chest pain. COMPARISON STUDY: Chest x-ray dated 03/18/2025. Chest CT dated 04/04/2024. TECHNIQUE: CT scan of the thorax was performed from the thoracic inlet to the upper abdomen. Images are reviewed in the axial, sagittal, and coronal planes. IV contrast was not administered for this ex amination as per the referring clinician. A dose lowering technique was utilized adhering to the kennedy garcia of DHEERAJ. FINDINGS: Thyroid: Mildly enlarged and heterogeneous. Thoracic aorta: There is advanced atherosclerotic calcification of the thoracic aorta, which is roseanna l in caliber and demonstrates standard 3-vessel arch anatomy. Heart: The patient is status post midline sternotomy. Findings suggest previous aortic valve surgery. The heart is enlarged and without pericardial effusion. The coronary arteries are densely calcified. The pulmonary trunk is dilated, measuring 4 cm in diameter. This suggests pulmonary artery hypertens ion. Lungs and pleural spaces: Evaluation of the lung parenchyma is degraded by motion artifact. Emphysema is observed. Diffuse interlobular septal thickening is consistent with congestive failure. Mild depe ndent airspace consolidation is seen at both lung bases, left side greater than right. There is trace left pleural effusion. Mediastinum: There is no mediastinal lymphadenopathy. Yolis: Not well assessed without IV contrast. Axillae: There is no axillary lymphadenopathy. Upper abdomen: Upper pole renal cysts are partially visualized and measure up to 5 cm. Partially visu alized upper abdominal viscera is within normal limits. Skeletal structures: The skeletal structures are osteopenic. Degenerative change and kyphoscoliosis i s noted in the thoracic spine. Advanced arthritic change is seen in the shoulders. No lytic or blasti c bony lesions are seen. IMPRESSION: 1. Cardiomegaly and emphysema with evidence of congestive failure. 2. Dependent airspace opacities at both lungs could represent a combination of atelectasis and mild p ulmonary edema. Correlate clinically for evidence of a superimposed pneumonia/aspiration pneumonitis. Radiographic follow-up to resolution is recommended. 3. Trace left pleural effusion. 4. There is evidence of pulmonary artery hypertension. 5. Additional findings as above. ACT 112: Negative or not required by law. Electronically signed by: Omid Da Silva M.D. 03/18/2025 10:54 AM
[2025-03-18] MEDS: FUROSEMIDE INJ 20 MG/2 ML VIAL IV ONE (11:14)
[2025-03-18 12:48] LABS: INR 1.9 (0.9-1.1); Partial Thromboplastin Time 39 Seconds (21-31); Prothrombin Time 19.3 Seconds (9.0-12.0)
[2025-03-18] MEDS ORDERED: MAGNESIUM HYDROXIDE SUSP 30 ML UDC PO PRN (14:07)
[2025-03-18] MEDS ORDERED: POLYETHYLENE (MIRALAX) 17 GM PACK PO PRN (14:07)
[2025-03-18] MEDS ORDERED: NITROGLYCERIN SL 0.4 MG/TAB TAB SL PRN (14:07)
[2025-03-18] MEDS: MoRPHine SULFATE 2 MG/ML CARP IV STA (14:44)
[2025-03-18 16:12] LABS: Chlamydia pneumoniae PCR Not Detected (NotDetected); Coronavirus 229E PCR Not Detected (NotDetected); Coronavirus CoV-2 (COVID19)PCR Not Detected (NotDetected); Coronavirus HKU1 PCR Not Detected (NotDetected); Coronavirus NL63 PCR Not Detected (NotDetected); Coronavirus OC43PCR Not Detected (NotDetected); Human Metapneumovirus PCR Not Detected (NotDetected); Parainfluenza Virus 1 PCR Not Detected (NotDetected); Parainfluenza Virus 2 PCR Not Detected (NotDetected); Parainfluenza Virus 3 PCR Not Detected (NotDetected); Parainfluenza Virus 4 PCR Not Detected (NotDetected); Respiratory Syncytial VirusPCR Not Detected (NotDetected); Rhinovirus/Enterovirus PCR Not Detected (NotDetected)
--- NOTE | 2025-03-18 18:36 | History & Physical Report ---
<Statement entered by Akila Block MD - 03/19/25 08:05> I saw this patient on 03/18 day of admission: I have reviewed vital signs, chart notes, labs and imaging. I have personally seen, evaluated and examined the patient. I have also discussed the management of the patient with the SHYANNE and I agree with the exam findings documented in the history and physical examination and the documented assessment and plan unless otherwise stated below. 84-year-old woman with HFpEF who is well-known to me from multiple previous admissions admitted with acute on chronic HFpEF. On exam she is grossly volume overloaded her EJ's are visibly distended and she has bibasilar crackles as well as significant anasarca including 3+ lower extremity edema all the way to the tops of her thighs. She is not wheezing breathing appears nonlabored. She is at least 20 pounds over her usual dry weight per family reports compliance with medications and she is using blister packs however she has steadily gained edema despite taking Lasix 3 times a week and she is also again subtherapeutic on her INR I suspect however that she has a significant amount of bowel wall edema impeding her oral absorption of medications and also nephrosarca. she has an GERSON related to this which will benefit from diuresis as well plan to diurese with lasix 40 IV bid, monitor BMP she has a productive cough without evidence of pneumonia, may be acute bronchitis or postviral cough Date of Service March 18, 2025 Assessment & Plan (1) Acute kidney injury superimposed on stage 3b chronic kidney disease: (2) Acute exacerbation of chronic heart failure: (3) Atrial fibrillation: (4) Hypertensive urgency: (5) Glaucoma: (6) Heart failure with preserved ejection fraction: Plan Ms. Ty is a 84 year old female with past medical including medical noncompliance, hypertension, gait disturbance, cerebral microvascular disease, acute encephalopathy, hyperlipidemia, glaucoma, CHF, GERD, and atrial fibrillation prescribed warfarin. 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 She presented to [facility] Emergency Department via EMS this am with c/o SOB, bilateral lower leg swelling, neck discomfort and mild cough with productive, intermittent greenish sputum. She has been around no sick contacts or recently hospitalized. She has been engaging in diet laden with sodium. In the emergency department she received nitro paste and furosemide 20mg IV as she demonstrated clinical signs of being fluid overloaded. Labs in ED: BNP 401, Cr 2.75, INR 1.9, Troponin 30.6/28.1, procal 0.09. Imaging: PCXR with mod interstitial pulmonary edema, chest CT w/o contrast with evidence of congestive failure, pulmonary artery HTN, atelectasis/mild pulmonary edema, soft tissue neck CT with incidental finding of 5mm ground glass nodular focus on left lung apex. EKG without overt acute ischemia. #Acute on chronic heart failure exacerbation BNP 400, trend trop EDW 173lbs, weight on admission 194lbs Lasix 40mg IV BID cont metoprolol Measure intake and output every shift Follow daily renal function panel and magnesium during active diuresis TTE as INR subtherapeutic in setting of acute CHF Cardiology consult ##GERSON superimposed on stage 3b CKD Cr 2.75 Cr trends labile, baseline ~ 1.5-2.0 trend in setting of acute CHF secondary to probable renal congestion ##HTN/hypertensive urgency~BP elevated on arrival to ED 170s/80s cont metoprolol, norvasc, hydralazine #Subtherapeutic INR in the setting of mechanical aortic valve with goal INR 2.5- 3.5 reports compliance with Warfarin regimen at home of 7.5mg on Th, 10mg remaining days of week INR 1.9 initiate Heparin gtt as Cr 2.75 ##5mm ground glass nodular focus on left lung apex/airspace opacities BL lungs correlate for superimposed pneumonia without leukocytosis, overt SOB, hypoxia, neg procal, check Biofire, MRSA delay empiric abx as she is stable but does endorse productive cough of green sputum and monitor for need of treatment outpatient f/u imaging DVT proph: Heparin gtt Diet: HH, low Na Dispostion: Full admit med/tele CODE STATUS: DNR/DNI Contacts: Love, niece and Josseline, granddaughter Admission and Anticipated Discharge Date Admission Date: March 18, 2025 History of Present Illness Chief Complaint: Cough, inspiratory pain, neck pain Primary Care Provider: DARNELL Lemus Ms. Ty is a 84 year old female with past medical including medical noncompliance, hypertension, gait disturbance, cerebral microvascular disease, acute encephalopathy, hyperlipidemia, glaucoma, CHF, GERD, and atrial fibrillation prescribed warfarin. She is s/p [facility] Tyshawn mechanical aortic valve prosthesis placed 30 years ago. She presented to [facility] Emergency Department via EMS this am with c/o SOB, bilateral lower leg swelling, neck discomfort and mild cough with productive, intermittent greenish sputum. The neck pain has been chronic for her and is positional/reproducible in nature. No difficulty swallowing. She denies fever/chills. States she just does not feel well. Denies midsternal chest pain. Reports she has been taking her Coumadin as prescribed and follows with [facility] outpatient AC clinic. Last evaluated regarding INR on 03/13/25 as she had a subtherapeutic INR at 1.6 on 03/12/25 and was instructed to dose herself with Coumadin 20mg and resume her regimen of 7.5mg every with 10mg all other days. Reveals her diet is laden in sodium content as she frequently consumes food on the go and food for take out for dinner. Also receives meals on wheels at home. Love Ribera at the bedside with patient reports an increased in bilateral lower extremity edema. After discussion with patient she elects to be a DNR/DNI. Allergies Allergy/AdvReac Type Severity Reaction Status Date / Time No Known Allergies Allergy Verified 11/28/24 09:30 Home Medications Medication Instructions Recorded Confirmed Type latanoprost 0.005 % eye drops 1 drp OPB PM 07/31/23 03/18/25 History Shower Chair #1 ea 11/20/23 11/25/24 Rx brimonidine 0.2 % eye drops 1 drp OPB TID 03/18/24 03/18/25 History dorzolamide 2 % eye drops 1 drp OPB BID 03/18/24 03/18/25 History lidocaine 5 % topical patch 1 patch transdermal QAM #10 ea 08/29/24 03/18/25 Rx atorvastatin 40 mg tablet 40 mg PO QAM #90 tabs 09/17/24 03/18/25 Rx metoprolol succinate 25 mg 12.5 mg (1/2 x 25 mg) PO QAM #45 09/17/24 03/18/25 Rx tablet,extended release 24 hr tabs nitroglycerin 0.4 mg sublingual 0.4 mg sublingual DAILY PRN Chest 09/17/24 03/18/25 History tablet Pain gabapentin 100 mg capsule 100 mg PO BID PRN pain #180 caps 10/06/24 03/18/25 Rx famotidine 20 mg tablet 20 mg PO DAILY #90 tabs 10/15/24 03/18/25 Rx benzonatate 200 mg capsule 200 mg PO TID PRN cough #30 caps 10/17/24 03/18/25 Rx amlodipine 10 mg tablet 10 mg PO QAM 11/07/24 03/18/25 History pantoprazole 40 mg tablet,delayed 40 mg PO AMHS 11/07/24 03/18/25 History release tramadol 50 mg tablet 50 mg PO Q8 PRN pain 11/07/24 03/18/25 History hydralazine 10 mg tablet 10 mg PO TID #270 tabs 11/24/24 03/18/25 Rx warfarin 5 mg tablet 5 mg PO DAILY #90 tabs 11/25/24 03/18/25 Rx furosemide 20 mg tablet 20 mg PO 3XWK #90 tabs 11/28/24 03/18/25 Rx Past Med/Surg History Problem List (Updated 03/19/25 @ 00:09 by Rajan Ma MD) Elevated troponin (Acute) Neck pain (Acute) Substernal chest pain (Acute) Medical non-compliance (Acute) Hypertensive emergency (Acute) Acute kidney injury superimposed on stage 3b chronic kidney disease Acute exacerbation of chronic heart failure (Acute) Atrial fibrillation (Chronic) Gait disturbance (Chronic) Cerebral microvascular disease (Chronic) Chronic back pain (Chronic) Glaucoma (Chronic) Medical History Torticollis, acquired Chronic anticoagulation Heart failure with preserved ejection fraction Hypertension Mass of head of pancreas Carotid artery stenosis Hypertensive urgency Pneumonia CKD (chronic kidney disease) stage 3, GFR 30-59 ml/min HTN (hypertension) with goal to be determined On warfarin therapy Mitral stenosis Atrial fibrillation with RVR Upper GI bleed Acute blood loss anemia Aortic stenosis Chest tightness Hydronephrosis of right kidney Macrocytic anemia Current every day smoker On warfarin therapy Surgical History Status post mechanical aortic valve replacement Status post hip replacement Status post knee replacement H/O mechanical aortic valve replacement Family History Brother Hypertension Heart disease Sister Hypertension Heart disease Mother Hypertension Heart disease Myocardial infarction Father Hypertension Heart disease Denies family history of Ovarian cancer Prostate cancer Breast cancer Lung cancer Colorectal cancer Stroke Social History Smoking Status: Current every day smoker Tobacco Type: Cigarettes Age Started Using Tobacco: 38; packs per day: 0.50; Cigarettes Per Day: half pack; Second Hand Exposure: No; Do You Dip or Chew Tobacco: No; Tobacco Cessation Education Requested by Patient: No Hx Alcohol Use: No Hx Substance Use: No Preferred Language: Hungarian Communication Ability: Effective Visual Impairment: Limited Hearing Ability: Normal Skip Operator Required: No Beliefs That Will Affect Care: None marital status: / Current Living Situation: Alone Current Living Situation Comment: [employer] current occupational status: retired How many Children do You have: 4 Other Information That Helps Us Care for You: No Feels Safe at Home: Yes Safety Concerns: Feels Safe At This Time Childhood Exposure to Second-Hand Smoke: Yes Diet: low salt caffeine: Yes Dental Care, Regularly: No Physical Activity Frequency: Does not Exercise Seatbelt Use: always Sunscreen Use: No Assistive Devices: Walker Review of Systems Review of Systems: All systems reviewed & are unremarkable except as noted in Subjective Physical Exam Physical Exam: GENERAL APPEARANCE: A&O. Sitting on stretcher. NAD. SKIN: Normal color without rashes or lesions. Normal turgor. HEENT: Head AT/NC. Buccal mucosa is moist and pink. NECK: JVD at 30 degrees. No thyroid enlargement. There is no lymphadenopathy. Left sided neck pain with flexion/extenstion. HEART: RRR with S4 gallop. LUNGS: Normal inspiratory effort. CTA with bibasilar rales. ABDOMEN: No guarding or rigidity. Normoactive BS in all four quadrants. Abdomen soft and NT. MSK: No bony gross/deformities throughout. ROM intact. EXTREMITIES: No edema, No peripheral cyanosis. +2 pretibial/lower ankle pitting edema. Neuro: CN 2-12 grossly intact. No focal neuro deficits PSYCHIATRIC: Normal affect. Eye contact is good. Speech is normal rate and c ontent. Responses are appropriate. Results & Data Results & Data Vital Signs (Past 12 Hours) Vital Signs Temp Pulse Pulse Resp BP BP Pulse Ox 03/18/25 15:00 82 18 149/100 H 95 03/18/25 15:00 82 18 149/100 H 95 03/18/25 13:15 77 03/18/25 13:00 83 17 143/78 H 95 03/18/25 11:00 74 18 138/73 96 03/18/25 09:10 72 03/18/25 09:04 77 18 97 03/18/25 09:04 97 03/18/25 09:04 36.6 C 77 18 173/89 H 97 03/18/25 09:04 36.6 C 77 18 173/89 H 97 O2 Del Method 03/18/25 15:00 Room Air 03/18/25 15:00 Room Air 03/18/25 13:15 03/18/25 13:00 Room Air 03/18/25 11:00 Room Air 03/18/25 09:10 03/18/25 09:04 Room Air 03/18/25 09:04 Room Air 03/18/25 09:04 Room Air 03/18/25 09:04 Room Air Laboratory Results Labs reviewed: CBC, PT/INR, CMP. trop, procal, TSH, BNP Code Status & VTE Plan VTE Prophylaxis Plan VTE Prophylaxis will be ordered: Yes PG Care Time/CCT Total # of Minutes Spent Total Time Spent with Patient: Total time spent is greater than 50% in coordination of care (as documented) at patient's floor/unit and/or counseling patient: Coding Level of Care Code 85295 INT INP/OBS CARE 3/75MIN Diagnoses Acute kidney injury superimposed on stage 3b chronic kidney disease N17.9; N18.32 Acute exacerbation of chronic heart failure I50.9 Atrial fibrillation I48.91 Hypertensive urgency I16.0 Glaucoma H40.9 Acute on chronic heart failure with preserved ejection fraction (HFpEF) I50.33 Heart failure chronicity: acute on chronic (6) Heart failure with preserved ejection fraction Heart failure chronicity: acute on chronic Qualified Code(s): I50.33 - Acute on chronic diastolic (congestive) heart failure
[2025-03-18] MEDS: HEPARIN 25000 UNIT/500 ML D5W 25,000 UNITS/500 ML BAG IV SCH (19:28)
[2025-03-18] MEDS: HEPARIN SOD (PORCINE) 1000 UNIT/ML IV ONE (19:28)
[2025-03-18] MEDS: MELATONIN 3 MG TAB PO PRN (20:29)
[2025-03-18] MEDS: FUROSEMIDE 40 MG/4 ML VIAL IV SCH (20:29)
[2025-03-18] MEDS: hydrALAZINE 10 MG TAB PO SCH (20:30)
[2025-03-18] MEDS: BRIMONIDINE TARTRATE 0.2% 5ML OPB SCH (20:30)
[2025-03-18] MEDS: DORZOLAMIDE HCL 2% OPH SOLN 10 ML BTL OPB SCH (20:30)
[2025-03-18] MEDS: LATANOPROST 0.005% OP SOLN 2.5 ML BTL OPB SCH (20:30)
[2025-03-18] MEDS: ACETAMINOPHEN 325 MG TAB PO PRN (20:33)
[2025-03-18] MEDS: WARFARIN SOD 10 MG TAB PO ONE (22:49)
[2025-03-18] MEDS: WARFARIN SOD 7.5 MG TAB PO ONE (23:04)
[2025-03-19 02:29] LABS: ANTI-Xa, UFH(UnfractionatedHep 1.35 IU/ml (0.3-0.7)
[2025-03-19 04:47] LABS: Hematocrit (blood only) 33.6 % (37.0-47.0); Hemoglobin 10.6 g/dL (12.0-16.0); Immature Granulocytes # (auto) 0.03 K/uL (0.01-0.20); Immature Granulocytes % (auto) 0.4 %; Mean Corpuscular Hemoglobin 34.9 pg (25.0-34.0); Mean Corpuscular Volume 110.5 fL (80.0-100.0); Platelet Count 198 K/uL (130-400); RDW Standard Deviation 65.0 fL (36.4-46.3); Red Blood Count 3.04 M/uL (4.20-5.40); White Blood Count 7.29 K/ul (4.8-10.8)
[2025-03-19 05:03] LABS: Anion Gap 8.0 (3-11); Blood Urea Nitrogen 33.0 mg/dl (6-23); Calcium 7.8 mg/dl (8.6-10.3); Carbon Dioxide 21.0 mmol/L (21-32); Chloride 113.0 mmol/L (98-107); Creatinine Clr Calc Pharmacy 14.8 ml/min; Glucose 78.0 mg/dl (70-99(Fasting)); Magnesium 2.3 mg/dl (1.7-2.4); Potassium 3.8 mmol/L (3.5-5.1); Sodium 142.0 mmol/L (136-145)
[2025-03-19 05:04] LABS: Macrocytosis Present; Polychromasia 1+
[2025-03-19 05:07] LABS: ANTI-Xa, UFH(UnfractionatedHep 0.84 IU/ml (0.3-0.7)
[2025-03-19 05:09] LABS: INR 1.9 (0.9-1.1); Prothrombin Time 19.3 Seconds (9.0-12.0)
[2025-03-19 07:01] LABS: ANTI-Xa, UFH(UnfractionatedHep 0.46 IU/ml (0.3-0.7)
[2025-03-19] MEDS: METOPROLOL SUCC 25MG EXT REL TAB PO SCH (08:47)
[2025-03-19 13:47] LABS: ANTI-Xa, UFH(UnfractionatedHep 0.73 IU/ml (0.3-0.7)
--- NOTE | 2025-03-19 14:26 | Cardiology Consultation ---
Date of Consultation March 19, 2025 Assessment & Plan (1) Acute exacerbation of chronic heart failure: (2) Hypertensive emergency: Summary of transthoracic echocardiogram performed today 03/19/2025: Severe biatrial enlargement is present. There is severe concentric left ventricular hypertrophy. No regional wall motion abnormalities noted. The left ventricle is hyperdynamic. Left Ventricular Ejection Fraction = >70 %. There is a mechanical aortic valve. Moderate to severe prosthetic stenosis present, peak continuous-wave Doppler velocity 3.9 m/s. Dynamic left ventricular outflow tract obstruction due to left ventricular hypertrophy and hyperdynamic left ventricular systolic function not excluded. There is no significant prosthetic valvular regurgitation. There is severe tricuspid regurgitation. The pulmonary artery systolic pressure is estimated to be 39 mmHg (mildly el evated). Compared to the previous study dated 11/08/2024, there has been no significant interval change. Mild troponin elevation, flat trend, consistent with CHF. Patient with history of medication nonadherence. Continue heparin bridge. INR 1.9, goal for her prosthesis is 2.5-3.5. Agree with furosemide 40 mg twice daily for now. Joanne Akers DO History of Present Illness Attending Physician: Akila Block MD History of Present Illness Aleida Ty is an 84 year old female seen in cardiology consultation per the request of DARNELL Llanes For the evaluation of congestive heart failure. Patient notes several days of worsening lower extremity edema and generalized fatigue. On review of systems also notes headache. She received doses on 03/18 in the evening and 03/19 this morning and notes her edema is already improving. Problem List: 1.Valvular heart disease status post MECHANICAL aortic valve replacement ([facility]) in 1984, [facility] 2. ? ASCVD status post CABG 3.Diastolic congestive heart failure 4.Paroxysmal atrial fibrillation observed when hospitalized in May 2024 with pneumonia and UTI 5.Hypertension 6.Right bundle-branch block 7.Carotid artery disease 8.Chronic kidney disease 9.Recurrent hyperkalemia 10.Recurrent GI bleeding 11.Chronic anemia 12.Chronic tobacco abuse 13.GERD 14.Glaucoma 15.Pressure ulcer 16.Status post hip replacement 17.Status post knee replacement Allergies Allergy/AdvReac Type Severity Reaction Status Date / Time No Known Allergies Allergy Verified 11/28/24 09:30 Home Medications Medication Instructions Recorded Confirmed Type latanoprost 0.005 % eye drops 1 drp OPB PM 07/31/23 03/18/25 History Shower Chair #1 ea 11/20/23 11/25/24 Rx brimonidine 0.2 % eye drops 1 drp OPB TID 03/18/24 03/18/25 History dorzolamide 2 % eye drops 1 drp OPB BID 03/18/24 03/18/25 History lidocaine 5 % topical patch 1 patch transdermal QAM #10 ea 08/29/24 03/18/25 Rx atorvastatin 40 mg tablet 40 mg PO QAM #90 tabs 09/17/24 03/18/25 Rx metoprolol succinate 25 mg 12.5 mg (1/2 x 25 mg) PO QAM #45 09/17/24 03/18/25 Rx tablet,extended release 24 hr tabs nitroglycerin 0.4 mg sublingual 0.4 mg sublingual DAILY PRN Chest 09/17/24 03/18/25 History tablet Pain gabapentin 100 mg capsule 100 mg PO BID PRN pain #180 caps 10/06/24 03/18/25 Rx famotidine 20 mg tablet 20 mg PO DAILY #90 tabs 10/15/24 03/18/25 Rx benzonatate 200 mg capsule 200 mg PO TID PRN cough #30 caps 10/17/24 03/18/25 Rx amlodipine 10 mg tablet 10 mg PO QAM 11/07/24 03/18/25 History pantoprazole 40 mg tablet,delayed 40 mg PO AMHS 11/07/24 03/18/25 History release tramadol 50 mg tablet 50 mg PO Q8 PRN pain 11/07/24 03/18/25 History hydralazine 10 mg tablet 10 mg PO TID #270 tabs 11/24/24 03/18/25 Rx warfarin 5 mg tablet 5 mg PO DAILY #90 tabs 11/25/24 03/18/25 Rx furosemide 20 mg tablet 20 mg PO 3XWK #90 tabs 11/28/24 03/18/25 Rx Patient History Medical History Torticollis, acquired Chronic anticoagulation Heart failure with preserved ejection fraction Hypertension Mass of head of pancreas Carotid artery stenosis Hypertensive urgency Pneumonia CKD (chronic kidney disease) stage 3, GFR 30-59 ml/min HTN (hypertension) with goal to be determined On warfarin therapy Mitral stenosis Atrial fibrillation with RVR Upper GI bleed Acute blood loss anemia Aortic stenosis Chest tightness Hydronephrosis of right kidney Macrocytic anemia Current every day smoker On warfarin therapy Surgical History Status post mechanical aortic valve replacement Status post hip replacement Status post knee replacement H/O mechanical aortic valve replacement Family History Brother Hypertension Heart disease Sister Hypertension Heart disease Mother Hypertension Heart disease Myocardial infarction Father Hypertension Heart disease Denies family history of Ovarian cancer Prostate cancer Breast cancer Lung cancer Colorectal cancer Stroke Social History Smoking Status: Current every day smoker Tobacco Type: Cigarettes Age Started Using Tobacco: 38; packs per day: 0.50; Cigarettes Per Day: half pack; Second Hand Exposure: No; Do You Dip or Chew Tobacco: No; Tobacco Cessation Education Requested by Patient: No Hx Alcohol Use: No Hx Substance Use: No Preferred Language: Polish Communication Ability: Effective Visual Impairment: Limited Hearing Ability: Normal Javascript Web Developer Required: No Beliefs That Will Affect Care: None marital status: / Current Living Situation: Alone Current Living Situation Comment: [employer] current occupational status: retired How many Children do You have: 4 Other Information That Helps Us Care for You: No Feels Safe at Home: Yes Safety Concerns: Feels Safe At This Time Childhood Exposure to Second-Hand Smoke: Yes Diet: low salt caffeine: Yes Dental Care, Regularly: No Physical Activity Frequency: Does not Exercise Seatbelt Use: always Sunscreen Use: No Assistive Devices: Walker Review of Systems Review of Systems: As noted above otherwise negative Physical Exam Physical Exam: General: no acute distress and stated age Eyes: conjunctiva are pink and non-injected, sclera clear Neck: normal jugular venous pulse, no hepatojugular reflux Chest: normal shape and normal respiratory effort -Well-healed midline sternotomy incision Lungs: clear to auscultation and percussion Cardiac Exam: - regular heart sounds, [place] prosthetic heart sounds noted Abdomen: abdomen soft, non-tender, no abnormal masses and no hepatosplenomegaly Extremities: 1+ bilateral lower extremity edema Neuro:awake, conversant, follows commands, no focal motor deficits Psych: appropriate affect and insight. Results & Data Vital Signs (Past 12 Hours) Vital Signs Temp Pulse Pulse Resp BP Pulse Ox O2 Del Method 03/19/25 13:35 Room Air 03/19/25 11:37 36.7 C 79 18 117/64 94 Room Air 03/19/25 08:18 36.7 C 89 18 121/68 94 Room Air 03/19/25 08:12 88 Laboratory Results Cardiac Enzymes 03/18/25 Range/Units 20:06 Troponin I High Sens 32.6 H (0-14) pg/ml Coagulation 03/19/25 Range/Units 04:19 PT 19.3 H (9.0-12.0) Seconds CBC 03/19/25 Range/Units 04:19 WBC 7.29 (4.8-10.8) K/ul RBC 3.04 L (4.20-5.40) M/uL Hgb 10.6 L (12.0-16.0) g/dL Hct 33.6 L (37.0-47.0) % Plt Count 198 (130-400) K/uL Neut # (Auto) 4.99 (1.40-6.50) K/uL Lymph # (Auto) 1.27 (1.20-3.40) K/uL [place] # (Auto) 0.76 H (0.11-0.59) K/uL Eos # (Auto) 0.21 (0.00-0.50) K/uL Baso # (Auto) 0.03 (0.00-0.20) K/uL Comprehensive Metabolic Panel 03/19/25 Range/Units 04:19 Sodium 142 (136-145) mmol/L Potassium 3.8 (3.5-5.1) mmol/L Chloride 113 H (98-107) mmol/L Carbon Dioxide 21 (21-32) mmol/L BUN 33 H (6-23) mg/dl Creatinine 2.87 H (0.6-1.2) mg/dl Glucose 78 (70-99(Fasting)) mg/dl Calcium 7.8 L (8.6-10.3) mg/dl Diagnostic Findings Chest x-ray and CT reports reviewed, consistent with CHF EKG performed 03/18/2025 and interpreted independently: Sinus rhythm at 73 bpm with first-degree AV block, LA interval 260 ms, right bundle branch block -Stable findings compared to November,. Coding Level of Care Code 32208 IN/OBS CONSULT LVL 4,60M Diagnoses Acute exacerbation of chronic heart failure I50.9 Hypertensive emergency I16.1
--- NOTE | 2025-03-19 14:36 | XCELERA ---
[id number]
--- NOTE | 2025-03-19 14:48 | Hospitalist Progress Note ---
Date of Service March 19, 2025 Assessment & Plan (1) Acute exacerbation of chronic heart failure: (2) Acute kidney injury superimposed on stage 3b chronic kidney disease: (3) Chronic anticoagulation: (4) Heart failure with preserved ejection fraction: (5) Hypertension: (6) Hypertensive urgency: Plan Ms. Ty is a 84 year old female with past medical including medical noncompliance, hypertension, gait disturbance, cerebral microvascular disease, acute encephalopathy, hyperlipidemia, glaucoma, CHF, GERD, and atrial fibrillation prescribed warfarin. 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 She presented to [facility] Emergency Department via EMS this am with c/o SOB, bilateral lower leg swelling, neck discomfort and mild cough with productive, intermittent greenish sputum. She has been around no sick contacts or recently hospitalized. She has been engaging in diet laden with sodium. In the emergency department she received nitro paste and furosemide 20mg IV as she demonstrated clinical signs of being fluid overloaded. Labs in ED: BNP 401, Cr 2.75, INR 1.9, Troponin 30.6/28.1, procal 0.09. Imaging: PCXR with mod interstitial pulmonary edema, chest CT w/o contrast with evidence of congestive failure, pulmonary artery HTN, atelectasis/mild pulmonary edema, soft tissue neck CT with incidental finding of 5mm ground glass nodular focus on left lung apex. EKG without overt acute ischemia. #Acute on chronic diastolic heart failure exacerbation BNP 400, trend trop EDW 173lbs, weight on admission 194lbs-->weight this am 172 (question validity of previous weight trends), will clinically correlate with diuresis response cont Lasix 40mg IV BID cont metoprolol Measure intake and output every shift Follow daily renal function panel and magnesium during active diuresis TTE as INR subtherapeutic in setting of acute CHF Cardiology consult-->mild trop elevation, flat trend consistent with CHF, cont Heparin bridge with INR goal 2.5-3.5, agree with Lasix for now ##GERSON superimposed on stage 3b CKD Cr trends labile, baseline ~ 1.5-2.0 Cr 2.87, expect slight increase with diuresis, cont to trend in setting of acute CHF secondary to probable renal congestion ##HTN/hypertensive urgency~BP elevated on arrival to ED 170s/80s cont metoprolol, norvasc, hydralazine #Subtherapeutic INR in the setting of mechanical aortic valve with goal INR 2.5- 3.5 now questionable underdosing on home regimen with only taking Coumadin 5mg daily vs. 7.5mg Th, 10mg every other day INR 1.9 maintain Heparin gtt Coumadin 10mg at 1600 ##5mm ground glass nodular focus on left lung apex/airspace opacities BL lungs correlate for superimposed pneumonia without leukocytosis, overt SOB, hypoxia, neg procal, check Biofire, MRSA delay empiric abx as she is stable but does endorse productive cough of green sputum and monitor for need of treatment outpatient f/u imaging DVT proph: Heparin gtt Diet: HH, low Na Dispostion: Full admit med/tele CODE STATUS: DNR/DNI Contacts: Love, niece and Josseline, granddaughter Granddaughter, Josseline provided formal update-->reports patient may need separate pill special events planner for Coumadin only at home to reinforce appropriate dosing and regimen Admission and Anticipated Discharge Date Admission Date: March 18, 2025 Subjective Patient lying in bed this am after working with PT. She states her SOB feels improved. She denies cough she reported on arrival to emergency department yesterday. Without fever or chills. Appetite good. Output being measured with purewick at this time with appreciation of favorable urinary output-->average 0.56ml/kg/hr. Urine clear in color. She is agreeable to rehab post discharge. After lengthier discussion with patient this afternoon, she reveals she is getting mixed up with her Coumadin regimen. Believes she may be only taking 5mg tablets instead of 2, 5mg tablets to equal 10mg dosing which could explain her subtherapeutic dosing. States her most of her routine medications are sent in blister packs for organization, however her Coumadin is not. Telemetry: NSR 70s with PACs/PVCs Review of Systems Review of Systems: All systems reviewed & are unremarkable except as noted in Subjective Physical Exam Physical Exam: GENERAL APPEARANCE: A&O. Lying in bed. NAD. SKIN: Normal color without rashes or lesions. Normal turgor. HEENT: Head AT/NC. Buccal mucosa is moist and pink. NECK: JVD at 30 degrees. No thyroid enlargement. There is no lymphadenopathy. Left sided neck pain with flexion/extenstion. HEART: RRR with S4 gallop. LUNGS: Normal inspiratory effort. CTA with bibasilar rales. ABDOMEN: No guarding or rigidity. Normoactive BS in all four quadrants. Abdomen soft and NT. MSK: No bony gross/deformities throughout. ROM intact. EXTREMITIES: No edema, No peripheral cyanosis. +2 pretibial/lower ankle pitting edema. Neuro: CN 2-12 grossly intact. No focal neuro deficits PSYCHIATRIC: Normal affect. Eye contact is good. Speech is normal rate and content. Responses are appropriate. Results & Data Results & Data Vital Signs (Past 12 Hours) Vital Signs Temp Pulse Pulse Resp BP Pulse Ox O2 Del Method 03/19/25 13:35 Room Air 03/19/25 11:37 36.7 C 79 18 117/64 94 Room Air 03/19/25 08:18 36.7 C 89 18 121/68 94 Room Air 03/19/25 08:12 88 Laboratory Results Labs reviewed: CBC, PT/INR, BMP, Heparin Anti-Xa PG Care Time/CCT Total # of Minutes Spent Total Time Spent with Patient: Total time spent is greater than 50% in coordination of care (as documented) at patient's floor/unit and/or counseling patient: Coding Level of Care Code 34725 SUB INP/OBS CARE MIN Diagnoses Acute exacerbation of chronic heart failure I50.9 Acute kidney injury superimposed on stage 3b chronic kidney disease N17.9; N18.32 Chronic anticoagulation Z79.01 Acute on chronic heart failure with preserved ejection fraction (HFpEF) I50.33 Heart failure chronicity: acute on chronic Hypertension I10 Hypertension type: unspecified Hypertensive urgency I16.0 (4) Heart failure with preserved ejection fraction Heart failure chronicity: acute on chronic Qualified Code(s): I50.33 - Acute on chronic diastolic (congestive) heart failure (5) Hypertension Hypertension type: unspecified Qualified Code(s): I10 - Essential (primary) hypertension
[2025-03-19 15:20] LABS: ANTI-Xa, UFH(UnfractionatedHep 0.83 IU/ml (0.3-0.7)
[2025-03-19] MEDS: WARFARIN SOD 10 MG TAB PO ONE (16:17)
[2025-03-19] MEDS: Heparin IV Adult Wt-Based Standard w/ INITIAL Bolus Protocol IV STA (19:07)
[2025-03-19 22:00] LABS: ANTI-Xa, UFH(UnfractionatedHep 0.71 IU/ml (0.3-0.7)
[2025-03-19] MEDS: BENZONATATE 100 MG CAPSULE PO PRN (23:11)
[2025-03-20 05:49] LABS: Hematocrit (blood only) 32.7 % (37.0-47.0); Hemoglobin 10.3 g/dL (12.0-16.0); Immature Granulocytes # (auto) 0.02 K/uL (0.01-0.20); Immature Granulocytes % (auto) 0.4 %; Mean Corpuscular Hemoglobin 34.6 pg (25.0-34.0); Mean Corpuscular Volume 109.7 fL (80.0-100.0); Platelet Count 185 K/uL (130-400); RDW Standard Deviation 63.8 fL (36.4-46.3); Red Blood Count 2.98 M/uL (4.20-5.40); White Blood Count 5.23 K/ul (4.8-10.8)
[2025-03-20 06:03] LABS: Anion Gap 7.0 (3-11); Blood Urea Nitrogen 31.0 mg/dl (6-23); Calcium 7.9 mg/dl (8.6-10.3); Carbon Dioxide 22.0 mmol/L (21-32); Chloride 111.0 mmol/L (98-107); Creatinine Clr Calc Pharmacy 13.7 ml/min; Glucose 87.0 mg/dl (70-99(Fasting)); Magnesium 2.1 mg/dl (1.7-2.4); Potassium 3.8 mmol/L (3.5-5.1); Sodium 140.0 mmol/L (136-145)
[2025-03-20 06:31] LABS: INR 3.6 (0.9-1.1); Prothrombin Time 35.6 Seconds (9.0-12.0)
[2025-03-20 06:42] LABS: ANTI-Xa, UFH(UnfractionatedHep 0.84 IU/ml (0.3-0.7)
--- NOTE | 2025-03-20 09:25 | Hospitalist Progress Note ---
Date of Service March 20, 2025 Assessment & Plan (1) Acute exacerbation of chronic heart failure: (2) Acute kidney injury superimposed on stage 3b chronic kidney disease: (3) Chronic anticoagulation: (4) Heart failure with preserved ejection fraction: (5) Hypertension: (6) Hypertensive urgency: Plan Ms. Ty is a 84 year old female with past medical including medical noncompliance, hypertension, gait disturbance, cerebral microvascular disease, acute encephalopathy, hyperlipidemia, glaucoma, CHF, GERD, and atrial fibrillation prescribed warfarin. 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 She presented to [facility] Emergency Department via EMS this am with c/o SOB, bilateral lower leg swelling, neck discomfort and mild cough with productive, intermittent greenish sputum. She has been around no sick contacts or recently hospitalized. She has been engaging in diet laden with sodium. In the emergency department she received nitro paste and furosemide 20mg IV as she demonstrated clinical signs of being fluid overloaded. Labs in ED: BNP 401, Cr 2.75, INR 1.9, Troponin 30.6/28.1, procal 0.09. Imaging: PCXR with mod interstitial pulmonary edema, chest CT w/o contrast with evidence of congestive failure, pulmonary artery HTN, atelectasis/mild pulmonary edema, soft tissue neck CT with incidental finding of 5mm ground glass nodular focus on left lung apex. EKG without overt acute ischemia. 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, dynamic left ventricular outflow tract obstruction due to left ventricular hypertrophy not excluded, no sig sever tricuspid regurg, compared with previous study 11/08/24 no significant interval change Cardiology consult-->mild trop elevation, flat trend consistent with CHF ##GERSON superimposed on stage 3b CKD Cr trends labile, baseline ~ 1.5-2.0 Cr 2.88, expect slight increase with diuresis, cont to trend in setting of acute CHF secondary to probable renal congestion ##HTN/hypertensive urgency~BP elevated on arrival to ED 170s/80s cont metoprolol, norvasc, hydralazine #Subtherapeutic INR in the setting of mechanical aortic valve with goal INR 2.5- 3.5 now questionable underdosing on home regimen with only taking Coumadin 5mg daily vs. 7.5mg Th, 10mg every other day INR 3.6 d/c Heparin gtt Coumadin at 1600 ##5mm ground glass nodular focus on left lung apex/airspace opacities BL lungs correlate for superimposed pneumonia without leukocytosis, overt SOB, hypoxia, neg procal, check Biofire, MRSA delay empiric abx as she is stable but does endorse productive cough of green sputum and monitor for need of treatment outpatient f/u imaging DVT proph: on Coumadin Diet: HH, low Na Dispostion: Full admit med/tele CODE STATUS: DNR/DNI Contacts: Love, niece and Josseline, granddaughter Granddaughter, Josseline provided formal update-->reports patient may need separate pill party planner for Coumadin only at home to reinforce appropriate dosing and regimen Admission and Anticipated Discharge Date Admission Date: March 18, 2025 Review of Systems Review of Systems: All systems reviewed & are unremarkable except as noted in Subjective Physical Exam Physical Exam: GENERAL APPEARANCE: A&O. Lying in bed. NAD. SKIN: Normal color without rashes or lesions. Normal turgor. HEENT: Head AT/NC. Buccal mucosa is moist and pink. NECK: JVD at 30 degrees. No thyroid enlargement. There is no lymphadenopathy. Left sided neck pain with flexion/extenstion. HEART: RRR with S4 gallop. LUNGS: Normal inspiratory effort. CTA with bibasilar rales. ABDOMEN: No guarding or rigidity. Normoactive BS in all four quadrants. Abdomen soft and NT. MSK: No bony gross/deformities throughout. ROM intact. EXTREMITIES: No edema, No peripheral cyanosis. +2 pretibial/lower ankle pitting edema. Neuro: CN 2-12 grossly intact. No focal neuro deficits PSYCHIATRIC: Normal affect. Eye contact is good. Speech is normal rate and content. Responses are appropriate. Results & Data Results & Data Vital Signs (Past 12 Hours) Vital Signs Temp Pulse Pulse Resp BP BP Pulse Ox 03/20/25 07:52 36.6 C 69 20 155/81 H 94 03/20/25 07:50 78 03/20/25 03:37 36.2 C L 73 16 151/69 H 91 03/19/25 22:46 36.9 C 69 16 143/73 H 93 03/19/25 22:04 67 O2 Del Method 03/20/25 07:52 Room Air 03/20/25 07:50 03/20/25 03:37 Room Air 03/19/25 22:46 Room Air 03/19/25 22:04 Laboratory Results Labs reviewed: CBC, BMP, PT/INR, Heparin anti-Xa, urine sodium PG Care Time/CCT Total # of Minutes Spent Total Time Spent with Patient: Total time spent is greater than 50% in coordination of care (as documented) at patient's floor/unit and/or counseling patient: Coding Diagnoses Acute exacerbation of chronic heart failure I50.9 Acute kidney injury superimposed on stage 3b chronic kidney disease N17.9; N18.32 Chronic anticoagulation Z79.01 Acute on chronic heart failure with preserved ejection fraction (HFpEF) I50.33 Heart failure chronicity: acute on chronic Hypertension I10 Hypertension type: unspecified Hypertensive urgency I16.0 (4) Heart failure with preserved ejection fraction Heart failure chronicity: acute on chronic Qualified Code(s): I50.33 - Acute on chronic diastolic (congestive) heart failure (5) Hypertension Hypertension type: unspecified Qualified Code(s): I10 - Essential (primary) hypertension
[2025-03-20] MEDS: CALCIUM GLUCONATE 1,000 MG/60 ML BAG IV STA (09:47)
[2025-03-20] MEDS: POTASSIUM CHLORIDE CRTAB 20 MEQ TABCR PO SCH (09:53)
--- NOTE | 2025-03-20 10:10 | Electrocardiogram Report ---
Test Reason : Blood Pressure : */* mmHG Vent. Rate : 73 BPM Atrial Rate : 73 BPM P-R Int : 216 ms QRS Dur : 156 ms QT Int : 464 ms P-R-T Axes : 76 44 42 degrees QTcB Int : 511 ms Sinus rhythm with 1st degree A-V block Right bundle branch block Abnormal ECG When compared with ECG of 07-Nov-2024 20:58, No significant change was found Confirmed by Mor Mancilla ([id number]) on 03/20/2025 10:10:30 AM Referred By: Confirmed By: Mor Mancilla
--- NOTE | 2025-03-20 15:28 | Cardiology Progress Note ---
Date of Service March 20, 2025 Assessment & Plan (1) Acute exacerbation of chronic heart failure: (2) Hypertensive emergency: Plan: Mild troponin elevation, flat trend, consistent with CHF. Patient with history of medication nonadherence. INR 3.6 today, goal for her prosthesis is 2.5-3.5. Heparin stopped. Continue coumadin. Reduce furosemide to 40 mg IV once daily. Consider discharge on furosemide 20 mg by mouth daily instead of 3 days per week. Question if this is an adherence issue rather than need for a higher dose. Patient lives alone and has trouble making it to the bathroom . Per patient request I called her grand daughter , Josseline, and provided updates. Cardiology to sign off. Please call with questions or concerns. Joanne Akers, DO Admission and Anticipated Discharge Date Admission Date: March 18, 2025 Subjective Patient seen in cardiology follow up. LE edema and SOB improved. Still with generalized fatigue. Physical Exam Physical Exam: Temp Pulse Resp BP Pulse Ox O2 Del Method 36.6 C 60 20 141/84 H 93 Room Air 03/20/25 11:28 03/20/25 14:43 03/20/25 11:28 03/20/25 11:28 03/20/25 11:28 03/20/25 11:28 General: no acute distress and stated age Eyes: conjunctiva are pink and non-injected, sclera clear Neck: normal jugular venous pulse, no hepatojugular reflux Chest: normal shape and normal respiratory effort -Well-healed midline sternotomy incision Lungs: clear to auscultation and percussion Cardiac Exam: - regular heart sounds, [place] prosthetic heart sounds noted Abdomen: abdomen soft, non-tender, no abnormal masses and no hepatosplenomegaly Extremities: 1+ bilateral lower extremity edema Neuro:awake, conversant, follows commands, no focal motor deficits Psych: appropriate affect and insight. Results & Data Vital Signs (Past 12 Hours) Vital Signs Temp Pulse Pulse Resp BP BP Pulse Ox 03/20/25 14:43 60 03/20/25 11:28 36.6 C 72 20 141/84 H 93 03/20/25 07:52 36.6 C 69 20 155/81 H 94 03/20/25 07:50 78 03/20/25 03:37 36.2 C L 73 16 151/69 H 91 O2 Del Method 03/20/25 14:43 03/20/25 11:28 Room Air 03/20/25 07:52 Room Air 03/20/25 07:50 03/20/25 03:37 Room Air Laboratory Results Coagulation 03/20/25 Range/Units 05:31 PT 35.6 H (9.0-12.0) Seconds CBC 03/20/25 Range/Units 05:27 WBC 5.23 (4.8-10.8) K/ul RBC 2.98 L (4.20-5.40) M/uL Hgb 10.3 L (12.0-16.0) g/dL Hct 32.7 L (37.0-47.0) % Plt Count 185 (130-400) K/uL Neut # (Auto) 3.35 (1.40-6.50) K/uL Lymph # (Auto) 1.18 L (1.20-3.40) K/uL Ponce # (Auto) 0.47 (0.11-0.59) K/uL Eos # (Auto) 0.18 (0.00-0.50) K/uL Baso # (Auto) 0.03 (0.00-0.20) K/uL Comprehensive Metabolic Panel 03/20/25 Range/Units 05:27 Sodium 140 (136-145) mmol/L Potassium 3.8 (3.5-5.1) mmol/L Chloride 111 H (98-107) mmol/L Carbon Dioxide 22 (21-32) mmol/L BUN 31 H (6-23) mg/dl Creatinine 2.88 H (0.6-1.2) mg/dl Glucose 87 (70-99(Fasting)) mg/dl Calcium 7.9 L (8.6-10.3) mg/dl Intake and Output 03/20/25 03/20/25 03/20/25 06:59 14:59 22:59 Intake Total 139.917 / 689.617 92.083 / 92.083 Output Total 201 / 851 Balance -61.083 / -161.383 92.083 / 92.083 Intake: IV 139.917 / 449.617 92.083 / 92.083 Calcium Gluconate 1,000 mg In 60 / 60 60 ml @ 240 mls/hr IV NOW STA Rx#:[id number] Heparin 83895 Unit/500 ml D5w 139.917 / 449.617 32.083 / 32.083 25,000 units In 500 ml @ 950 UNITS/HR 19 mls/hr IV .Q24H MCKENZIE Rx#:[id number] Output: Urine 200 / 200 # Bowel Movements Other: # Unmeasured Voids 1 Weight 75.841 kg Weight Measurement Method Built in [facility] PG Care Time/CCT Total # of Minutes Spent Total Time Spent with Patient: Total time spent is greater than 50% in coordination of care (as documented) at patient's floor/unit and/or counseling patient: Coding Level of Care Code 68720 SUB INP/OBS CARE 3/50MIN Diagnoses Acute exacerbation of chronic heart failure I50.9 Hypertensive emergency I16.1
--- NOTE | 2025-03-20 16:12 | Hospitalist Progress Note ---
Date of Service March 20, 2025 Assessment & Plan (1) Acute exacerbation of chronic heart failure: (2) Acute kidney injury superimposed on stage 3b chronic kidney disease: (3) Chronic anticoagulation: (4) Heart failure with preserved ejection fraction: (5) Hypertension: (6) Hypertensive urgency: Plan Ms. Ty is a 84 year old female with past medical including medical noncompliance, hypertension, gait disturbance, cerebral microvascular disease, acute encephalopathy, hyperlipidemia, glaucoma, CHF, GERD, and atrial fibrillation prescribed warfarin. 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 She presented to [facility] Emergency Department via EMS this am with c/o SOB, bilateral lower leg swelling, neck discomfort and mild cough with productive, intermittent greenish sputum. She has been around no sick contacts or recently hospitalized. She has been engaging in diet laden with sodium. In the emergency department she received nitro paste and furosemide 20mg IV as she demonstrated clinical signs of being fluid overloaded. Labs in ED: BNP 401, Cr 2.75, INR 1.9, Troponin 30.6/28.1, procal 0.09. Imaging: PCXR with mod interstitial pulmonary edema, chest CT w/o contrast with evidence of congestive failure, pulmonary artery HTN, atelectasis/mild pulmonary edema, soft tissue neck CT with incidental finding of 5mm ground glass nodular focus on left lung apex. EKG without overt acute ischemia. #Acute on chronic diastolic heart failure exacerbation BNP 400 on arrival EDW 173lbs, weight on admission 194lbs-->weight this am 165 (question validity of previous weight trends), she is approaching euvolemia clinically change Lasix 40mg IV daily as Cr 2.88 cont metoprolol Measure intake and output every shift, output 0.66ml/kg/hr Follow daily renal function panel and magnesium during active diuresis, supplemental K with Lasix dosing TTE with no significant change from 11/2024-->severe tricuspid regurg Cardiology consult-->mild trop elevation, flat trend consistent with CHF, Coumadin dosing INR goal 2.5-3.5, agree with Lasix for now ##GERSON superimposed on stage 3b CKD~in setting of acute CHF secondary to probable renal congestion Cr trends labile, baseline ~ 1.5-2.0 Cr 2.88, change Lasix to daily dosing and cont to trend ##HTN/hypertensive urgency~BP elevated on arrival to ED 170s/80s cont metoprolol, norvasc, hydralazine #Subtherapeutic INR in the setting of mechanical aortic valve with goal INR 2.5- 3.5 now questionable underdosing on home regimen with only taking Coumadin 5mg daily vs. 7.5mg Th, 10mg every other day INR 3.6 this am post Coumadin 10mg on 03/19/25 trend with no Coumadin this evening ##5mm ground glass nodular focus on left lung apex/airspace opacities BL lungs correlate for superimposed pneumonia without leukocytosis, overt SOB, hypoxia, neg procal, check Biofire, MRSA neg without persistent productive cough or clinical signs of infection outpatient f/u imaging DVT proph: Coumadin Diet: HH, low Na Dispostion: Full admit med/tele CODE STATUS: DNR/DNI Contacts: Love, niece and Josseline, granddaughter Admission and Anticipated Discharge Date Admission Date: March 18, 2025 Subjective States she is feeling much better this am. Shortness of breath has improved and her lower legs feel less tight. Appetite good. She denies melena, hematemesis. Review of Systems Review of Systems: All systems reviewed & are unremarkable except as noted in Subjective Physical Exam Physical Exam: GENERAL APPEARANCE: A&O. Lying in bed. NAD. SKIN: Normal color without rashes or lesions. Normal turgor. HEENT: Head AT/NC. Buccal mucosa is moist and pink. NECK: JVD at 30 degrees. No thyroid enlargement. There is no lymphadenopathy. Left sided neck pain with flexion/extenstion. HEART: RRR with S4 gallop. LUNGS: Normal inspiratory effort. Fine crackles right lower lobe. ABDOMEN: No guarding or rigidity. Normoactive BS in all four quadrants. Abdomen soft and NT. MSK: No bony gross/deformities throughout. ROM intact. EXTREMITIES: No edema, No peripheral cyanosis. +1 pretibial/lower ankle pitting edema. Neuro: CN 2-12 grossly intact. No focal neuro deficits PSYCHIATRIC: Normal affect. Eye contact is good. Speech is normal rate and content. Responses are appropriate. Results & Data Results & Data Vital Signs (Past 12 Hours) Vital Signs Temp Pulse Pulse Resp BP Pulse Ox O2 Del Method 03/20/25 14:43 60 03/20/25 11:28 36.6 C 72 20 141/84 H 93 Room Air 03/20/25 07:52 36.6 C 69 20 155/81 H 94 Room Air 03/20/25 07:50 78 Laboratory Results Labs reviewed: CBC, BMP, PT/INR, Heparin Anti-Xa PG Care Time/CCT Total # of Minutes Spent Total Time Spent with Patient: Total time spent is greater than 50% in coordination of care (as documented) at patient's floor/unit and/or counseling patient: Coding Level of Care Code 18043 SUB INP/OBS CARE 2/35MIN Diagnoses Acute exacerbation of chronic heart failure I50.9 Acute kidney injury superimposed on stage 3b chronic kidney disease N17.9; N18.32 Chronic anticoagulation Z79.01 Acute on chronic heart failure with preserved ejection fraction (HFpEF) I50.33 Heart failure chronicity: acute on chronic Hypertension I10 Hypertension type: unspecified Hypertensive urgency I16.0 (4) Heart failure with preserved ejection fraction Heart failure chronicity: acute on chronic Qualified Code(s): I50.33 - Acute on chronic diastolic (congestive) heart failure (5) Hypertension Hypertension type: unspecified Qualified Code(s): I10 - Essential (primary) hypertension
[2025-03-21] MEDS: ALUMINUM/MAGNESIUM SUSP 30 ML UDC PO PRN (03:20)
[2025-03-21 06:51] LABS: Hematocrit (blood only) 34.4 % (37.0-47.0); Hemoglobin 11.0 g/dL (12.0-16.0); Immature Granulocytes # (auto) 0.02 K/uL (0.01-0.20); Immature Granulocytes % (auto) 0.4 %; Mean Corpuscular Hemoglobin 35.1 pg (25.0-34.0); Mean Corpuscular Volume 109.9 fL (80.0-100.0); Platelet Count 207 K/uL (130-400); RDW Standard Deviation 63.7 fL (36.4-46.3); Red Blood Count 3.13 M/uL (4.20-5.40); White Blood Count 4.46 K/ul (4.8-10.8)
[2025-03-21 07:41] LABS: INR 5.3 (0.9-1.1); Prothrombin Time 51.0 Seconds (9.0-12.0)
[2025-03-21 07:48] LABS: Anion Gap 8.0 (3-11); Blood Urea Nitrogen 31.0 mg/dl (6-23); Calcium 8.3 mg/dl (8.6-10.3); Carbon Dioxide 22.0 mmol/L (21-32); Chloride 109.0 mmol/L (98-107); Creatinine Clr Calc Pharmacy 13.5 ml/min; Glucose 77.0 mg/dl (70-99(Fasting)); Potassium 4.4 mmol/L (3.5-5.1); Sodium 139.0 mmol/L (136-145)
[2025-03-21] MEDS: FUROSEMIDE 40 MG/4 ML VIAL IV SCH (07:55)
--- NOTE | 2025-03-21 13:57 | Hospitalist Progress Note ---
Date of Service March 21, 2025 Assessment & Plan (1) Acute exacerbation of chronic heart failure: (2) Acute kidney injury superimposed on stage 3b chronic kidney disease: (3) Hypertensive emergency: (4) Chronic anticoagulation: (5) Heart failure with preserved ejection fraction: (6) Hypertension: Plan Ms. Ty is a 84 year old female with past medical including medical noncompliance, hypertension, gait disturbance, cerebral microvascular disease, acute encephalopathy, hyperlipidemia, glaucoma, CHF, GERD, and atrial fibrillation prescribed warfarin. 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 She presented to [facility] Emergency Department via EMS this am with c/o SOB, bilateral lower leg swelling, neck discomfort and mild cough with productive, intermittent greenish sputum. She has been around no sick contacts or recently hospitalized. She has been engaging in diet laden with sodium. In the emergency department she received nitro paste and furosemide 20mg IV as she demonstrated clinical signs of being fluid overloaded. Labs in ED: BNP 401, Cr 2.75, INR 1.9, Troponin 30.6/28.1, procal 0.09. Imaging: PCXR with mod interstitial pulmonary edema, chest CT w/o contrast with evidence of congestive failure, pulmonary artery HTN, atelectasis/mild pulmonary edema, soft tissue neck CT with incidental finding of 5mm ground glass nodular focus on left lung apex. EKG without overt acute ischemia. #Acute on chronic diastolic heart failure exacerbation BNP 400 on arrival EDW 173lbs, weight on admission 194lbs-->weight this am 165 (question validity of previous weight trends), she is approaching euvolemia clinically d/c Lasix approaching euvolemia and Cr at 2.88 cont metoprolol Measure intake and output every shift, output variable with Pure wick placement and incontinence Follow daily renal function panel TTE with no significant change from 11/2024-->severe tricuspid regurg Cardiology consult-->mild trop elevation, flat trend consistent with CHF, Coumad in dosing INR goal 2.5-3.5 ##GERSON superimposed on stage 3b CKD~in setting of acute CHF secondary to probable renal congestion Cr trends labile, baseline ~ 1.5-2.0 Cr 2.88, d/c Lasix ##HTN/hypertensive urgency~BP elevated on arrival to ED 170s/80s normotensive during hospitalization cont metoprolol, norvasc, hydralazine #Subtherapeutic INR in the setting of mechanical aortic valve with goal INR 2.5- 3.5 now questionable underdosing on home regimen with only taking Coumadin 5mg daily vs. 7.5mg Th, 10mg every other day INR 5.3 trend with no Coumadin this evening ##5mm ground glass nodular focus on left lung apex/airspace opacities BL lungs correlate for superimposed pneumonia without leukocytosis, overt SOB, hypoxia, neg procal, check Biofire, MRSA neg without persistent productive cough or clinical signs of infection outpatient f/u imaging DVT proph: Coumadin on hold Diet: HH, low Na Dispostion: Full admit med/tele CODE STATUS: DNR/DNI Contacts: Love, niece and Josseline, granddaughter Admission and Anticipated Discharge Date Admission Date: March 18, 2025 Subjective Patient reports she is feeling improved today and less SOB. Appetite good. She denies melena or hematemesis. Leg swelling feels improved. Denies orthopnea or MENDEZ. Review of Systems Review of Systems: All systems reviewed & are unremarkable except as noted in Subjective Physical Exam Physical Exam: GENERAL APPEARANCE: A&O. Sitting comfortably on stretcher. NAD. SKIN: Normal color without rashes or lesions. Normal turgor. HEENT: Head AT/NC. Buccal mucosa is moist and pink. NECK: JVD at 30 degrees. HEART: RRR with S4 gallop LUNGS: Normal inspiratory effort. Fine crackles RLL. ABDOMEN: No guarding or rigidity. Normoactive BS in all four quadrants. Abdomen soft and NT. MSK: No bony gross/deformities throughout. ROM intact. EXTREMITIES: No edema, No peripheral cyanosis. +1 pre-tibial pitting edema. Neuro: CN 2-12 grossly intact. No focal neuro deficits PSYCHIATRIC: Normal affect. Eye contact is good. Speech is normal rate and content. Responses are appropriate. Results & Data Results & Data Vital Signs (Past 12 Hours) Vital Signs Temp Pulse Pulse Resp BP BP Pulse Ox 03/21/25 11:31 03/21/25 10:36 36.6 C 64 20 128/76 93 03/21/25 07:29 36.7 C 74 20 140/77 95 03/21/25 07:27 67 03/21/25 02:56 36.8 C 64 16 128/72 95 O2 Del Method 03/21/25 11:31 Room Air 03/21/25 10:36 Room Air 03/21/25 07:29 Room Air 03/21/25 07:27 03/21/25 02:56 Room Air Laboratory Results Labs reviewed: CBC, BMP, PT/INR PG Care Time/CCT Total # of Minutes Spent Total Time Spent with Patient: Total time spent is greater than 50% in coordination of care (as documented) at patient's floor/unit and/or counseling patient: Coding Level of Care Code 47115 SUB INP/OBS CARE 2/35MIN Diagnoses Acute exacerbation of chronic heart failure I50.9 Acute kidney injury superimposed on stage 3b chronic kidney disease N17.9; N18.32 Hypertensive emergency I16.1 Chronic anticoagulation Z79.01 Acute on chronic heart failure with preserved ejection fraction (HFpEF) I50.33 Heart failure chronicity: acute on chronic Hypertension I10 Hypertension type: unspecified (5) Heart failure with preserved ejection fraction Heart failure chronicity: acute on chronic Qualified Code(s): I50.33 - Acute on chronic diastolic (congestive) heart failure (6) Hypertension Hypertension type: unspecified Qualified Code(s): I10 - Essential (primary) hypertension
[2025-03-21] MEDS: DICLOFENAC SOD 1% GEL 100 GM TUBE EXT PRN (22:59)
[2025-03-22 06:15] LABS: Hematocrit (blood only) 34.6 % (37.0-47.0); Hemoglobin 10.9 g/dL (12.0-16.0); Immature Granulocytes # (auto) 0.02 K/uL (0.01-0.20); Immature Granulocytes % (auto) 0.4 %; Mean Corpuscular Hemoglobin 34.5 pg (25.0-34.0); Mean Corpuscular Volume 109.5 fL (80.0-100.0); Platelet Count 215 K/uL (130-400); RDW Standard Deviation 62.5 fL (36.4-46.3); Red Blood Count 3.16 M/uL (4.20-5.40); White Blood Count 4.71 K/ul (4.8-10.8)
[2025-03-22 06:44] LABS: INR 3.6 (0.9-1.1); Prothrombin Time 35.7 Seconds (9.0-12.0)
[2025-03-22 06:45] LABS: Anion Gap 8.0 (3-11); Blood Urea Nitrogen 32.0 mg/dl (6-23); Calcium 8.3 mg/dl (8.6-10.3); Carbon Dioxide 23.0 mmol/L (21-32); Chloride 108.0 mmol/L (98-107); Creatinine Clr Calc Pharmacy 13.6 ml/min; Glucose 77.0 mg/dl (70-99(Fasting)); Potassium 4.7 mmol/L (3.5-5.1); Sodium 139.0 mmol/L (136-145)
--- NOTE | 2025-03-22 08:59 | Hospitalist Progress Note ---
Date of Service March 22, 2025 Assessment & Plan (1) Acute exacerbation of chronic heart failure: (2) Acute kidney injury superimposed on stage 3b chronic kidney disease: (3) Hypertensive emergency: (4) Chronic anticoagulation: (5) Heart failure with preserved ejection fraction: (6) Hypertension: Plan Ms. Ty is a 84 year old female with past medical including medical noncompliance, hypertension, gait disturbance, cerebral microvascular disease, acute encephalopathy, hyperlipidemia, glaucoma, CHF, GERD, and atrial fibrillation prescribed warfarin. 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 She presented to [facility] Emergency Department via EMS this am with c/o SOB, bilateral lower leg swelling, neck discomfort and mild cough with productive, intermittent greenish sputum. She has been around no sick contacts or recently hospitalized. She has been engaging in diet laden with sodium. In the emergency department she received nitro paste and furosemide 20mg IV as she demonstrated clinical signs of being fluid overloaded. Labs in ED: BNP 401, Cr 2.75, INR 1.9, Troponin 30.6/28.1, procal 0.09. Imaging: PCXR with mod interstitial pulmonary edema, chest CT w/o contrast with evidence of congestive failure, pulmonary artery HTN, atelectasis/mild pulmonary edema, soft tissue neck CT with incidental finding of 5mm ground glass nodular focus on left lung apex. EKG without overt acute ischemia. #Acute on chronic diastolic heart failure exacerbation BNP 400 on arrival--> EDW 173lbs, weight on admission 194lbs-->weight this am 165 (question validity of previous weight trends), she is approaching euvolemia clinically cont metoprolol Measure intake and output every shift, output variable with Pure wick placement and incontinence Follow daily renal function panel TTE with no significant change from 11/2024-->severe tricuspid regurg Cardiology consult-->mild trop elevation, flat trend consistent with CHF, Coumadin dosing INR goal 2.5-3.5 repeat CXR ##GERSON superimposed on stage 3b CKD~in setting of acute CHF secondary to probable renal congestion Cr trends labile, baseline ~ 1.5-2.0 Cr 2.87, d/c Lasix ##HTN/hypertensive urgency~BP elevated on arrival to ED 170s/80s normotensive thus far during hospitalization cont metoprolol, norvasc, hydralazine #Subtherapeutic INR in the setting of mechanical aortic valve with goal INR 2.5- 3.5 now questionable underdosing on home regimen with only taking Coumadin 5mg daily vs. 7.5mg Th, 10mg every other day INR 3.6 trend with no Coumadin this evening ##5mm ground glass nodular focus on left lung apex/airspace opacities BL lungs correlate for superimposed pneumonia without leukocytosis, overt SOB, hypoxia, neg procal, check Biofire, MRSA neg without persistent productive cough or clinical signs of infection outpatient f/u imaging DVT proph: Coumadin on hold Diet: HH, low Na Dispostion: Full admit med/tele CODE STATUS: DNR/DNI Contacts: Love, niece and Josseline, granddaughter Admission and Anticipated Discharge Date Admission Date: March 18, 2025 Review of Systems Review of Systems: All systems reviewed & are unremarkable except as noted in Subjective Physical Exam Physical Exam: GENERAL APPEARANCE: A&O. Sitting comfortably on stretcher. NAD. SKIN: Normal color without rashes or lesions. Normal turgor. HEENT: Head AT/NC. Buccal mucosa is moist and pink. NECK: JVD at 30 degrees. HEART: RRR with S4 gallop LUNGS: Normal inspiratory effort. Fine crackles RLL. ABDOMEN: No guarding or rigidity. Normoactive BS in all four quadrants. Abdomen soft and NT. MSK: No bony gross/deformities throughout. ROM intact. EXTREMITIES: No edema, No peripheral cyanosis. +1 pre-tibial pitting edema. Neuro: CN 2-12 grossly intact. No focal neuro deficits PSYCHIATRIC: Normal affect. Eye contact is good. Speech is normal rate and content. Responses are appropriate. Results & Data Results & Data Vital Signs (Past 12 Hours) Vital Signs Temp Pulse Pulse Resp BP BP Pulse Ox 03/22/25 08:03 03/22/25 07:31 36.9 C 77 20 140/81 96 03/22/25 03:33 36.8 C 75 18 134/80 95 03/22/25 00:00 36.8 C 70 18 143/78 H 96 03/21/25 22:01 65 03/21/25 21:32 O2 Del Method 03/22/25 08:03 Room Air 03/22/25 07:31 Room Air 03/22/25 03:33 Room Air 03/22/25 00:00 Room Air 03/21/25 22:01 03/21/25 21:32 Room Air Laboratory Results Labs reviewed: CBC, BMP, BNP PG Care Time/CCT Total # of Minutes Spent Total Time Spent with Patient: Total time spent is greater than 50% in coordination of care (as documented) at patient's floor/unit and/or counseling patient: Coding Diagnoses Acute exacerbation of chronic heart failure I50.9 Acute kidney injury superimposed on stage 3b chronic kidney disease N17.9; N18.32 Hypertensive emergency I16.1 Chronic anticoagulation Z79.01 Acute on chronic heart failure with preserved ejection fraction (HFpEF) I50.33 Heart failure chronicity: acute on chronic Hypertension I10 Hypertension type: unspecified (5) Heart failure with preserved ejection fraction Heart failure chronicity: acute on chronic Qualified Code(s): I50.33 - Acute on chronic diastolic (congestive) heart failure (6) Hypertension Hypertension type: unspecified Qualified Code(s): I10 - Essential (primary) hypertension
--- NOTE | 2025-03-22 09:18 | XRay Report ---
HISTORY: CHF TECHNIQUE: PA and lateral views of the chest. COMPARISON: Chest CT dated 03/18/2025. FINDINGS: Findings of CHF with cardiomegaly, pulmonary vascular congestion, and mild interstitial pulmonary edema. Mild nonspecific bibasilar airspace opacities.No pneumothorax. Possible small pleural effusions. Left-sided aortic arch containing atherosclerotic calcification. Midline trachea. Severe degenerative changes of the shoulders and spine. IMPRESSION: * Findings of CHF with cardiomegaly, pulmonary vascular congestion, mild interstitial pulmonary edema, and possible small pleural effusions. * Mild bibasilar airspace opacities may represent superimposed atelectasis or pneumonia. Electronically signed by Horace Odom 03-22-2025 09:18 AM
--- NOTE | 2025-03-22 11:42 | Cardiology Progress Note ---
Date of Service March 22, 2025 Assessment & Plan (1) Acute exacerbation of chronic heart failure: (2) Hypertensive emergency: Plan: History of mechanical aortic valve replacement, 1984 with elevated trans valvular gradients, severe tricuspid regurgitation Mild troponin elevation, flat trend, consistent with CHF. Patient with history of medication nonadherence. Had trended up to 5.3 on 03/21/2025, down to 3.6 today.Goal INR 2.5-3.5 given older generation mechanical aortic valve prosthesis. Consider reinitiating low- dose Coumadin to prevent subtherapeutic INR. Creatinine trended up to 2.88. Lower extremity edema slightly improved compared to presentation. Anticipate she is going to have some degree of edema given the degree of severe tricuspid regurgitation. Hold diuretics again today, and consider reinitiating oral treatment with furosemide 20 mg daily 03/23/2025 if renal function stable. Future considerations include discharge on furosemide 20 mg by mouth daily instead of 3 days per week. Question if this is an adherence issue rather than need for a higher dose. Patient lives alone and has trouble making it to the bathroom . Joanne Akers DO Admission and Anticipated Discharge Date Admission Date: March 18, 2025 Subjective Patient seen cardiology follow-up. Notes generalized weakness. Telemetry reveals sinus rhythm in the 60s. Physical Exam Physical Exam: Temp Pulse Resp BP Pulse Ox O2 Del Method 36.5 C 77 20 145/80 H 95 Room Air 03/22/25 10:34 03/22/25 10:34 03/22/25 10:34 03/22/25 10:34 03/22/25 10:34 03/22/25 10:34 General: no acute distress and stated age Eyes: conjunctiva are pink and non-injected, sclera clear Neck: normal jugular venous pulse, no hepatojugular reflux Chest: normal shape and normal respiratory effort -Well-healed midline sternotomy incision Lungs: clear to auscultation and percussion Cardiac Exam: - regular heart sounds, [place] prosthetic heart sounds noted Abdomen: abdomen soft, non-tender, no abnormal masses and no hepatosplenomegaly Extremities: 1+ bilateral lower extremity edema Neuro:awake, conversant, follows commands, no focal motor deficits Psych: appropriate affect and insight. Results & Data Vital Signs (Past 12 Hours) Vital Signs Temp Pulse Resp BP BP Pulse Ox O2 Del Method 03/22/25 10:34 36.5 C 77 20 145/80 H 95 Room Air 03/22/25 08:03 Room Air 03/22/25 07:31 36.9 C 77 20 140/81 96 Room Air 03/22/25 03:33 36.8 C 75 18 134/80 95 Room Air 03/22/25 00:00 36.8 C 70 18 143/78 H 96 Room Air Laboratory Results Cardiac Enzymes 03/22/25 Range/Units 08:21 B-Natriuretic Peptide 490 H (0-100) pg/ml Coagulation 03/22/25 03/22/25 Range/Units 05:44 08:21 PT 35.7 H (9.0-12.0) Seconds B-Natriuretic Peptide 490 H (0-100) pg/ml CBC 03/22/25 Range/Units 05:44 WBC 4.71 L (4.8-10.8) K/ul RBC 3.16 L (4.20-5.40) M/uL Hgb 10.9 L (12.0-16.0) g/dL Hct 34.6 L (37.0-47.0) % Plt Count 215 (130-400) K/uL Neut # (Auto) 3.09 (1.40-6.50) K/uL Lymph # (Auto) 0.90 L (1.20-3.40) K/uL [place] # (Auto) 0.45 (0.11-0.59) K/uL Eos # (Auto) 0.23 (0.00-0.50) K/uL Baso # (Auto) 0.02 (0.00-0.20) K/uL Comprehensive Metabolic Panel 03/22/25 Range/Units 05:44 Sodium 139 (136-145) mmol/L Potassium 4.7 (3.5-5.1) mmol/L Chloride 108 H (98-107) mmol/L Carbon Dioxide 23 (21-32) mmol/L BUN 32 H (6-23) mg/dl Creatinine 2.87 H (0.6-1.2) mg/dl Glucose 77 (70-99(Fasting)) mg/dl Calcium 8.3 L (8.6-10.3) mg/dl Intake and Output 03/21/25 03/22/25 03/22/25 22:59 06:59 14:59 Output Total 300 / 1050 300 / 1050 Balance -300 / -850 -300 / -850 Output: Urine Amount (Catheter) 300 / 1050 300 / 1050 External 300 / 1050 300 / 1050 Other: Weight 75 kg Weight Measurement Method Built in [facility] Care Time/CCT Total # of Minutes Spent Total Time Spent with Patient: Total time spent is greater than 50% in coordination of care (as documented) at patient's floor/unit and/or counseling patient: Coding Level of Care Code 88484 SUB INP/OBS CARE 3/50MIN Diagnoses Acute exacerbation of chronic heart failure I50.9 Hypertensive emergency I16.1
[2025-03-22] MEDS: cefTRIAXone SODIUM 1,000 MG/50 ML BAG IV SCH (12:28)
[2025-03-22] MEDS: DOXYCYCLINE HYCLATE 100 MG CAP PO SCH (12:29)
--- NOTE | 2025-03-22 13:18 | Hospitalist Progress Note ---
Date of Service March 22, 2025 Assessment & Plan (1) Acute exacerbation of chronic heart failure: (2) Acute kidney injury superimposed on stage 3b chronic kidney disease: (3) Hypertensive emergency: (4) Chronic anticoagulation: (5) Heart failure with preserved ejection fraction: (6) Hypertension: Plan Ms. Ty is a 84 year old female with past medical including medical noncompliance, hypertension, gait disturbance, cerebral microvascular disease, acute encephalopathy, hyperlipidemia, glaucoma, CHF, GERD, and atrial fibrillation prescribed warfarin. 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 She presented to [facility] Emergency Department via EMS this am with c/o SOB, bilateral lower leg swelling, neck discomfort and mild cough with productive, intermittent greenish sputum. She has been around no sick contacts or recently hospitalized. She has been engaging in diet laden with sodium. In the emergency department she received nitro paste and furosemide 20mg IV as she demonstrated clinical signs of being fluid overloaded. Labs in ED: BNP 401, Cr 2.75, INR 1.9, Troponin 30.6/28.1, procal 0.09. Imaging: PCXR with mod interstitial pulmonary edema, chest CT w/o contrast with evidence of congestive failure, pulmonary artery HTN, atelectasis/mild pulmonary edema, soft tissue neck CT with incidental finding of 5mm ground glass nodular focus on left lung apex. EKG without overt acute ischemia. #Acute on chronic diastolic heart failure exacerbation BNP 400 on arrival-->490 03/22/25 EDW 173lbs, weight on admission 194lbs-->weight this am 165 (question validity of previous weight trends), she is approaching euvolemia clinically cont metoprolol Measure intake and output every shift, output variable with Pure wick placement and incontinence Follow daily renal function panel TTE with no significant change from 11/2024-->severe tricuspid regurg Cardiology consult-->mild trop elevation, flat trend consistent with CHF, Coumadin dosing INR goal 2.5-3.5 (hold Lasix for now with Cr level, consider oral Lasix resumption 03/23)consideration of daily dosing on d/c vs three times a week dosing repeat CXR with findings of CHF, pulm vascular congestion, mild interstitial pulm edema ##CAP chest xray 03/22 with mild bibasilar opacities with questionable PNA still with cough Ceftriaxone 1gm IV, Doxycycline 100mg po BID (no macrolide with Coumadin dosing) ##GERSON superimposed on stage 3b CKD~in setting of acute CHF secondary to probable renal congestion Cr trends labile, baseline ~ 1.5-2.0 Cr 2.8, Lasix d/c'ed, possible resumption of oral Lasix 03/23 pending trend ##HTN/hypertensive urgency~BP elevated on arrival to ED 170s/80s normotensive thus far during hospitalization cont metoprolol, norvasc, hydralazine #Subtherapeutic INR in the setting of mechanical aortic valve with goal INR 2.5- 3.5 now questionable underdosing on home regimen with only taking Coumadin 5mg daily vs. 7.5mg Th, 10mg every other day INR 3.6 Coumadin 3mg this evening ##5mm ground glass nodular focus on left lung apex/airspace opacities BL lungs correlate for superimposed pneumonia without leukocytosis, overt SOB, hypoxia, neg procal, check Biofire, MRSA neg without persistent productive cough or clinical signs of infection outpatient f/u imaging DVT proph: Coumadin Diet: HH, low Na Dispostion: Full admit med/tele CODE STATUS: DNR/DNI Contacts: Love, niece and Josseline, granddaughter Admission and Anticipated Discharge Date Admission Date: March 18, 2025 Subjective Aleida reports she still feels about the same today. Noted her leg swelling is improved. Still with slightly productive cough of yellowish/whitish sputum. Denies SOB at rest. No MENDEZ when she was up for transport to radiology this am for chest x-ray. Appetite good. Urinary output reasonable in setting of purewick placement and inaccurate I/O. Denies fever. She denies melena, hematochezia->hx of GI bleeding on AC therapy. Wanting to go home on d/c with home PT. Review of Systems Review of Systems: All systems reviewed & are unremarkable except as noted in Subjective Physical Exam Physical Exam: GENERAL APPEARANCE: A&O. Sitting comfortably in bed. NAD. SKIN: Normal color without rashes or lesions. Normal turgor. HEENT: Head AT/NC. Buccal mucosa is moist and pink. NECK: No JVD. HEART: RRR with S4 gallop. LUNGS: Normal inspiratory effort. Fine bibasilar crackles. ABDOMEN: No guarding or rigidity. Normoactive BS in all four quadrants. Abdomen soft and NT. MSK: No bony gross/deformities throughout. ROM intact. EXTREMITIES: No edema, No peripheral cyanosis. +1 pre-tibial pitting edema. Neuro: CN 2-12 grossly intact. No focal neuro deficits PSYCHIATRIC: Normal affect. Eye contact is good. Speech is normal rate and content. Responses are appropriate. Results & Data Results & Data Vital Signs (Past 12 Hours) Vital Signs Temp Pulse Resp BP BP Pulse Ox O2 Del Method 03/22/25 10:34 36.5 C 77 20 145/80 H 95 Room Air 03/22/25 08:03 Room Air 03/22/25 07:31 36.9 C 77 20 140/81 96 Room Air 03/22/25 03:33 36.8 C 75 18 134/80 95 Room Air Laboratory Results Labs reviewed: CBC, CMP, PT/INR, BNP PG Care Time/CCT Total # of Minutes Spent Total Time Spent with Patient: Total time spent is greater than 50% in coordination of care (as documented) at patient's floor/unit and/or counseling patient: Coding Level of Care Code 51322 SUB INP/OBS CARE 2/35MIN Diagnoses Acute exacerbation of chronic heart failure I50.9 Acute kidney injury superimposed on stage 3b chronic kidney disease N17.9; N18.32 Hypertensive emergency I16.1 Chronic anticoagulation Z79.01 Acute on chronic heart failure with preserved ejection fraction (HFpEF) I50.33 Heart failure chronicity: acute on chronic Hypertension I10 Hypertension type: unspecified (5) Heart failure with preserved ejection fraction Heart failure chronicity: acute on chronic Qualified Code(s): I50.33 - Acute on chronic diastolic (congestive) heart failure (6) Hypertension Hypertension type: unspecified Qualified Code(s): I10 - Essential (primary) hypertension
[2025-03-22] MEDS: WARFARIN SOD 3 MG TAB PO ONE (15:47)
[2025-03-23 07:46] LABS: INR 2.4 (0.9-1.1); Prothrombin Time 24.5 Seconds (9.0-12.0)
[2025-03-23 08:41] LABS: Anion Gap 6.0 (3-11); Blood Urea Nitrogen 30.0 mg/dl (6-23); Calcium 8.5 mg/dl (8.6-10.3); Carbon Dioxide 24.0 mmol/L (21-32); Chloride 110.0 mmol/L (98-107); Creatinine Clr Calc Pharmacy 14.1 ml/min; Glucose 78.0 mg/dl (70-99(Fasting)); Potassium 4.5 mmol/L (3.5-5.1); Sodium 140.0 mmol/L (136-145)
[2025-03-23] MEDS: FUROSEMIDE 20 MG TAB PO SCH (09:56)
--- NOTE | 2025-03-23 10:56 | Hospitalist Progress Note ---
Date of Service March 23, 2025 Assessment & Plan (1) Acute exacerbation of chronic heart failure: (2) Acute kidney injury superimposed on stage 3b chronic kidney disease: (3) Hypertensive emergency: Plan Ms. Ty is a 84F with PMhx of medical noncompliance, hypertension, gait disturbance, cerebral microvascular disease, HLD, glaucoma, CHF, GERD, and atrial fibrillation prescribed warfarin. 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 She presented with c/o SOB, bilateral lower leg swelling, neck discomfort and mild cough with productive, intermittent greenish sputum. She has been around no sick contacts or recently hospitalized. She has been engaging in diet laden with sodium. Inital eval concern for BNP 401, Cr 2.75, INR 1.9, CXR with mod interstitial pulmonary edema, chest CT w/o contrast with evidence of congestive failure, pulmonary artery HTN, atelectasis/mild pulmonary edema, soft tissue neck CT with incidental finding of 5mm ground glass nodular focus on left lung apex. Admitted for IV diuresis and further workup. #Acute on chronic diastolic heart failure exacerbation - with elevated BNP (490), pt admits to not taking her lasix bc of urinary frequency. Dry weight ~173lbs. TTE with no significant change from 11/2024-->severe tricuspid regurg. Repeat CXR with findings of CHF, pulm vascular congestion, mild interstitial pulm edema She received IV diuretics, stopped because of worsening Cr. Remains above her dry weight, 80kg standing today - resume lasix 20mg PO daily cont metoprolol Daily weight, I&Os Cardiology consult-->mild trop elevation, flat trend consistent with CHF, Coumadin dosing INR goal 2.5-3.5, resume lasix at 20mg daily - will monitor may just need 3 times per week. Consider decreasing amlodipine and increasing hydralazine. Add bess tadeo PT/OT - rec rehab, pt tells me that she is not going to a senior care and wants to be home for the holidays, she has been [facility] past we discussed a short stay there to get stronger and then still possibly home for holidays and she was agreeable to referall - CM updated #CAP - chest xray 03/22 with mild bibasilar opacities with questionable PNA still with cough Ceftriaxone 1gm IV, Doxycycline 100mg po BID (no macrolide with Coumadin dosing) #GERSON superimposed on stage 3b CKD - in setting of acute CHF secondary to probable renal congestion Cr trends labile, baseline ~ 1.5-2.0 Cr stable, 2.77 today, resume PO lasix AM BMP #HTN/hypertensive urgency - BP elevated on arrival to ED 170s/80s BP improved. cont metoprolol, norvasc, hydralazine #Subtherapeutic INR - in the setting of mechanical aortic valve with goal INR 2.5-3.5. Patient baseline dosing very difficult to determine as changed frequently due to not taking meds as prescribed. Has been on 5mg daily and regimen with 7.5mg Th, 10mg every other day. INR subtherapetuic on arrival, bridged with heparin. INR 2.4 today - will continue coumadin 5mg every day and monitor. Follows with [facility] outpatient #5mm ground glass nodular focus on left lung apex/airspace opacities BL lungs correlate for superimposed pneumonia - treat for PNA as above, outpatient f/u imaging DVT proph: Coumadin Dispo: continue inpatient stay, monitoring INR and Cr Admission and Anticipated Discharge Date Admission Date: March 18, 2025 Subjective Patient seen lying in bed - she tells me she has been taking her coumadin at home but not her lasix because she was peeing so much. She then tells me about how she is full of fluid. She is very worried about not being home for the holidays - we discussed how even a short stay at rehab could be possible before [place]. She reports that her legs are very swollen and she feels short of breath with activity. Tele - SR 60-70s Review of Systems Review of Systems: All systems reviewed & are unremarkable except as noted in Subjective Physical Exam Physical Exam: General: NAD, VS as above, lying in bed, able to ambulate to the scale outside her room Resp: normal respiratory effort, lungs clear to auscultation - reports feeling SOB with ambulation CV: RRR, no murmur, Abd: normal bowel sounds, non tender, soft Extremities: Moves all extremities, Trace edema Neuro: A&O x3, Skin: intact, no lesions noted Results & Data Results & Data Vital Signs (Past 12 Hours) Vital Signs Temp Pulse Pulse Resp BP BP Pulse Ox 03/23/25 07:48 97.7 F 71 18 165/87 H 03/23/25 07:27 69 03/23/25 04:00 97.7 F 71 18 124/73 96 O2 Del Method 03/23/25 07:48 Room Air 03/23/25 07:27 03/23/25 04:00 Room Air Laboratory Results Bmp and INR Reviewed PG Care Time/CCT Total # of Minutes Spent Total Time Spent with Patient: Total time spent is greater than 50% in coordination of care (as documented) at patient's floor/unit and/or counseling patient: Coding Level of Care Code 86948 SUB INP/OBS CARE 3/50MIN Diagnoses Acute exacerbation of chronic heart failure I50.9 Acute kidney injury superimposed on stage 3b chronic kidney disease N17.9; N18.32 Hypertensive emergency I16.1
--- NOTE | 2025-03-23 14:33 | Cardiology Progress Note ---
Date of Service March 23, 2025 Assessment & Plan (1) Acute exacerbation of chronic heart failure: (2) Acute kidney injury superimposed on stage 3b chronic kidney disease: (3) Status post mechanical aortic valve replacement: Plan Patient appears generally compensated. Previous recommendations for chronic heart failure as noted, furosemide 20 mg 3 times per week. Consider increasing hydralazine dosing while reducing amlodipine to 5 mg/day to aid in peripheral edema. Continue chronic anticoagulation given mechanical aortic valve Contact with further question Admission and Anticipated Discharge Date Admission Date: March 18, 2025 Subjective Patient seen and personally examined Doing "okay" overall lower extremity edema improved. No specific chest pains. Remains in sinus rhythm Review of Systems Review of Systems: All systems reviewed & are unremarkable except as noted in Subjective Physical Exam Constitutional: + obese; no acute distress Eyes: PERRL, conjunctivae normal, anicteric sclerae Neck: trachea midline, no thyromegaly Respiratory: Auscultation: + bronchovesicular breath sounds (Left base) Cardiovascular: Rate/Rhythm: regular rate and regular rhythm Vessels: no JVD Extremities: + edema (Trace only) [place] mechanical prosthetic aortic valve sound Gastrointestinal (Abdomen): normal bowel sounds, soft, nontender, no hepatosplenomegaly Results & Data Vital Signs (Past 12 Hours) Vital Signs Temp Pulse Pulse Resp BP BP Pulse Ox 03/23/25 11:42 36.7 C 73 20 151/66 H 95 03/23/25 08:00 03/23/25 07:48 36.5 C 71 18 165/87 H 03/23/25 07:27 69 03/23/25 04:00 36.5 C 71 18 124/73 96 O2 Del Method 03/23/25 11:42 Room Air 03/23/25 08:00 Room Air 03/23/25 07:48 Room Air 03/23/25 07:27 03/23/25 04:00 Room Air Laboratory Results Laboratory Results - last 24 hr 03/23/25 03/23/25 06:07 06:12 PT 24.5 H INR 2.4 H Sodium 140 Potassium 4.5 Chloride 110 H Carbon Dioxide 24 Anion Gap 6 BUN 30 H Creatinine 2.77 H Est Cr Clr Drug Dosing 14.1 eGFR 16.16 BUN/Creatinine Ratio 10.8 Glucose 78 Calcium 8.5 L PG Care Time/CCT Total # of Minutes Spent Total Time Spent with Patient: Total time spent is greater than 50% in coordination of care (as documented) at patient's floor/unit and/or counseling patient: Coding Level of Care Code 24281 SUB INP/OBS CARE 350MIN Diagnoses Acute exacerbation of chronic heart failure I50.9 Acute kidney injury superimposed on stage 3b chronic kidney disease N17.9; N18.32 Status post mechanical aortic valve replacement Z95.2
[2025-03-23] MEDS: WARFARIN SOD 5 MG TAB PO SCH (17:17)
[2025-03-24 10:33] LABS: Anion Gap 8.0 (3-11); Blood Urea Nitrogen 30.0 mg/dl (6-23); Calcium 8.8 mg/dl (8.6-10.3); Carbon Dioxide 23.0 mmol/L (21-32); Chloride 110.0 mmol/L (98-107); Creatinine Clr Calc Pharmacy 13.5 ml/min; Glucose 117.0 mg/dl (70-99(Fasting)); Potassium 3.7 mmol/L (3.5-5.1); Sodium 141.0 mmol/L (136-145)
[2025-03-24 10:42] LABS: INR 2.7 (0.9-1.1); Prothrombin Time 27.2 Seconds (9.0-12.0)
--- NOTE | 2025-03-24 13:49 | Hospitalist Progress Note ---
Date of Service March 24, 2025 Assessment & Plan (1) Acute exacerbation of chronic heart failure: (2) Acute kidney injury superimposed on stage 3b chronic kidney disease: (3) Hypertensive emergency: Plan Ms. Ty is a 84F with PMhx of medical noncompliance, hypertension, gait disturbance, cerebral microvascular disease, HLD, glaucoma, CHF, GERD, and atrial fibrillation prescribed warfarin. 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 She presented with c/o SOB, bilateral lower leg swelling, neck discomfort and mild cough with productive, intermittent greenish sputum. She has been around no sick contacts or recently hospitalized. She has been engaging in diet laden with sodium. Inital eval concern for BNP 401, Cr 2.75, INR 1.9, CXR with mod interstitial pulmonary edema, chest CT w/o contrast with evidence of congestive failure, pulmonary artery HTN, atelectasis/mild pulmonary edema, soft tissue neck CT with incidental finding of 5mm ground glass nodular focus on left lung apex. Admitted for IV diuresis and further workup. #Acute on chronic diastolic heart failure exacerbation - with elevated BNP (490), pt admits to not taking her lasix bc of urinary frequency. Dry weight ~173lbs. TTE with no significant change from 11/2024-->severe tricuspid regurg. Repeat CXR with findings of CHF, pulm vascular congestion, mild interstitial pulm edema She received IV diuretics, stopped because of worsening Cr. Remains above her dry weight, cont metoprolol Daily weight, I&Os Cardiology consult-->mild trop elevation, flat trend consistent with CHF, Coumadin dosing INR goal 2.5-3.5, resume lasix at 20mg daily - will monitor may just need 3 times per week. Consider decreasing amlodipine and increasing hydralazine. Add bess tadeo PT/OT - rec rehab, pt tells me that she is not going to a jail and wants to be home for the holidays, she has been [facility] in the past we discussed a short stay there to get stronger and then still possibly home for holidays and she was agreeable to referall - CM updated #CAP - chest xray 03/22 with mild bibasilar opacities with questionable PNA, this is improving Ceftriaxone 1gm IV, Doxycycline 100mg po BID (no macrolide with Coumadin dosing) #GERSON superimposed on stage 3b CKD - in setting of acute CHF secondary to probable renal congestion Cr trends labile, baseline ~ 1.5-2.0 Cr stable, 2.9 today, hold PO lasix AM BMP #HTN/hypertensive urgency - BP elevated on arrival to ED 170s/80s BP improved. cont metoprolol, hydralazine increased and amlodopine decreased per cardiology recommendations #Subtherapeutic INR - in the setting of mechanical aortic valve with goal INR 2.5-3.5. Patient baseline dosing very difficult to determine as changed frequently due to not taking meds as prescribed. Has been on 5mg daily and regimen with 7.5mg Th, 10mg every other day. INR subtherapeutic on arrival, bridged with heparin. INR 2.7 today - will continue coumadin 5mg every day and monitor. Follows with [facility] outpatient #5mm ground glass nodular focus on left lung apex/airspace opacities BL lungs correlate for superimposed pneumonia - treat for PNA as above, outpatient f/u imaging DVT proph: Coumadin Dispo: continue inpatient stay, monitoring INR and Cr Admission and Anticipated Discharge Date Admission Date: March 18, 2025 Subjective patient seen lying in bed - reports feeling weak and tired today. Encouraged OOB No cough Discussed awaiting rehab bed Tele - SR 70s Review of Systems Review of Systems: All systems reviewed & are unremarkable except as noted in Subjective Physical Exam Physical Exam: General: NAD, VS as above, lying in bed, Resp: normal respiratory effort, lungs clear to auscultation - CV: RRR, no murmur, Abd: normal bowel sounds, non tender, soft Extremities: Moves all extremities, Trace nonpitting edema Neuro: A&O x3, Skin: intact, no lesions noted Results & Data Results & Data Vital Signs (Past 12 Hours) Vital Signs Temp Pulse Pulse Resp BP Pulse Ox O2 Del Method 03/24/25 08:00 Room Air 03/24/25 07:55 98.1 F 72 16 145/87 H 95 Room Air 03/24/25 07:19 69 03/24/25 03:54 98.1 F 73 20 181/108 H 94 Room Air Laboratory Results bmp and INR Reviewed PG Care Time/CCT Total # of Minutes Spent Total Time Spent with Patient: Total time spent is greater than 50% in coordination of care (as documented) at patient's floor/unit and/or counseling patient: Coding Level of Care Code 71869 SUB INP/OBS CARE 2MIN Diagnoses Acute exacerbation of chronic heart failure I50.9 Acute kidney injury superimposed on stage 3b chronic kidney disease N17.9; N18.32 Hypertensive emergency I16.1
[2025-03-25] MEDS: ONDANSETRON INJ 2 MG/ML 2 ML VIAL IV PRN (06:05)
[2025-03-25 07:34] VITALS: RESP 18
[2025-03-25 07:56] LABS: Anion Gap 7.0 (3-11); Calcium 8.5 mg/dl (8.6-10.3); Carbon Dioxide 21.0 mmol/L (21-32); Chloride 112.0 mmol/L (98-107); Magnesium 2.2 mg/dl (1.7-2.4); Potassium 4.0 mmol/L (3.5-5.1); Sodium 140.0 mmol/L (136-145)
[2025-03-25 08:01] LABS: Blood Urea Nitrogen 27.0 mg/dl (6-23); Creatinine Clr Calc Pharmacy 14.6 ml/min; Glucose 86.0 mg/dl (70-99(Fasting))
[2025-03-25 08:04] LABS: INR 3.2 (0.9-1.1); Prothrombin Time 31.3 Seconds (9.0-12.0)
[2025-03-25 11:16] VITALS: BP 158/84; TEMP 98.8; O2SAT 94
--- NOTE | 2025-03-25 12:42 | Discharge Summary ---
Discharge Summary Date of Service March 25, 2025 Principal Dx & Hospital Course #1 = Principal Diagnosis (1) Acute exacerbation of chronic heart failure: (2) Acute kidney injury superimposed on stage 3b chronic kidney disease: (3) Hypertensive emergency: Plan Ms. Ty is a 84F with PMhx of medical noncompliance, hypertension, gait disturbance, cerebral microvascular disease, HLD, glaucoma, CHF, GERD, and atrial fibrillation prescribed warfarin. 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 She presented with c/o SOB, bilateral lower leg swelling, neck discomfort and mild cough with productive, intermittent greenish sputum. She has been around no sick contacts or recently hospitalized. She has been engaging in diet laden with sodium. Initial eval concern for BNP 401, Cr 2.75, INR 1.9, CXR with mod interstitial pulmonary edema, chest CT w/o contrast with evidence of congestive failure, pulmonary artery HTN, atelectasis/mild pulmonary edema, soft tissue neck CT with incidental finding of 5mm ground glass nodular focus on left lung apex. Admitted for IV diuresis and further workup. #Acute on chronic diastolic heart failure exacerbation - with elevated BNP (490), pt admits to not taking her lasix bc of urinary frequency. Dry weight ~173lbs. TTE with no significant change from 11/2024-->severe tricuspid regurg. Repeat CXR with findings of CHF, pulm vascular congestion, mild interstitial pulm edema. She received IV diuretics, stopped because of worsening Cr. Cont metoprolol. Cardiology consult-->mild trop elevation, flat trend consistent with CHF, Coumadin dosing INR goal 2.5-3.5, resume lasix 3 times per week. Decreased amlodipine and increasing hydralazine for leg swelling. PT/OT - rec rehab, plan for short stay at [facility] at patient wants to be home for the holidays. #CAP - chest xray 03/22 with mild bibasilar opacities with questionable PNA, this is improving. Ceftriaxone 1gm IV, Doxycycline 100mg po BID - needs on additional day on discharge #GERSON superimposed on stage 3b CKD - in setting of acute CHF secondary to probable renal congestion. Cr trends labile, baseline ~ 1.5-2.0. Cr improving down to 2.68 continue to monitor BMPs. Hold PO lasix, resume lasix three times a week #HTN/hypertensive urgency - BP elevated on arrival to ED 170s/80s. BP improved. cont metoprolol, hydralazine increased and amlodipine decreased per cardiology recommendations #Subtherapeutic INR - in the setting of mechanical aortic valve with goal INR 2.5-3.5. Patient baseline dosing very difficult to determine as changed frequently due to not taking meds as prescribed. Has been on 5mg daily and regimen with 7.5mg Th, 10mg every other day. INR subtherapeutic on arrival, bridged with heparin. Continued on 5mg everyday and INR stable. Follows with [facility] - rec follow up after discharge. #Multinodular thyroid with nodules measuring up to 11 mm on the right 5 mm groundglass nodular focus of the left lung require outpatient follow up - defer to PCP Notes For Next Care Provider Multinodular thyroid with nodules measuring up to 11 mm on the right 5 mm groundglass nodular focus of the left lung need follow up concern for medical noncompliance with especially her coumadin. She did admit to not taking her lasix Admission HPI Per Admitting Provider Ms. Ty is a 84 year old female with past medical including medical noncompliance, hypertension, gait disturbance, cerebral microvascular disease, acute encephalopathy, hyperlipidemia, glaucoma, CHF, GERD, and atrial fibrillation prescribed warfarin. 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 She presented to [facility] via EMS this am with c/o SOB, bilateral lower leg swelling, neck discomfort and mild cough with productive, intermittent greenish sputum. The neck pain has been chronic for her and is positional/reproducible in nature. No difficulty swallowing. She denies fever/chills. States she just does not feel well. Denies midsternal chest pain. Reports she has been taking her Coumadin as prescribed and follows with [facility]. Last evaluated regarding INR on 03/13/25 as she had a subtherapeutic INR at 1.6 on 03/12/25 and was instructed to dose herself with Coumadin 20mg and resume her regimen of 7.5mg every with 10mg all other days. Reveals her diet is laden in sodium content as she frequently consumes food on the go and food for take out for dinner. Also receives meals on wheels at home. Love Ribera at the bedside with patient reports an increased in bilateral lower extremity edema. After discussion with patient she elects to be a DNR/DNI. Discharge Exam General: NAD, VS as above, lying in bed, Resp: normal respiratory effort, lungs clear to auscultation - CV: RRR, no murmur, Abd: normal bowel sounds, non tender, soft - reports nausea Extremities: Moves all extremities, Trace nonpitting edema Neuro: A&O x3, Skin: intact, no lesions noted Discharge Plan Discharge Items Patient Disposition: Transfer Inpatient Rehab Fac Reason For Visit: SOB, ACUTE EXACERBATION OF CHRONIC HEART FAILURE Discharge Diagnosis: CHF exacerbation, subtherapeutic INR Condition on Discharge: Fair Activity: Resume your previous activity Weightbearing: Full weightbearing Non-emergency contact: Primary Care Provider and [employer] Call non-emergency contact if: you have any medication questions, your symptoms worsen and your temperature is above 101 Follow-up/Referrals: Song Pritchard CRNP [Primary Care Provider] - (Follow up after discharge from [facility] ) Kiel Beth MD [Physician] - (Follow up ~ 1 month ) Diet: Heart Healthy Addtl Attending Provider Instructions: Ms. Ty, You were hospitalized after having leg swelling and weakness at home - you were found to have a CHF exacerbation that improved after IV diuretics. Your INR was subtherapeutic at home and it is unclear if you were taking your co umadin as prescribed. You were restarted on 5mg daily and so far has been well controlled. Your blood pressure medications were changed to try to limit leg swelling - you now have to take Amlodopine 5mg each morning and hydralazine increased to 25mg three times a day. You will have a few more days of antibiotics for you pneumonia. You will need to follow up with your PCP and [employer] after you are discharged form [facility]. For encompass: Patient has been getting pill packs from [facility] - these will need to be updated on discharge Need ones more day of abx for PNA - has been getting ceftriaxone and doxycyline here. Please monitor INR Pending Studies at Discharge: No Stand-Alone Forms: My [facility] [address] Skilled Items Patient informed of condition?: Yes DNR: Yes Discharge Level of Care: Acute rehab Communicable Disease: No Discharge Prognosis: Improving Lines: None Urinary Catheter: No Medications and DC Order Prescriptions: New doxycycline hyclate 100 mg Capsule 100 mg PO BID 1 Days Qty: 2 0RF hydralazine 25 mg Tablet 25 mg PO TID Qty: 90 0RF amlodipine 5 mg Tablet 5 mg PO QAM Qty: 30 0RF ceftriaxone 2 gram recon soln 1 g IV DAILY Continued gabapentin 100 mg capsule 100 mg PO BID PRN (Reason: pain) Qty: 180 3RF famotidine 20 mg tablet 20 mg PO DAILY Qty: 90 3RF nitroglycerin 0.4 mg tablet, sublingual 0.4 mg sublingual DAILY PRN (Reason: Chest Pain) atorvastatin 40 mg tablet 40 mg PO QAM Qty: 90 3RF metoprolol succinate 25 mg tablet extended release 24 hr 12.5 mg PO QAM Qty: 45 3RF warfarin 5 mg tablet 5 mg PO DAILY Qty: 90 0RF (DME) Shower Chair Misc See Rx Instructions .Route Qty: 1 0RF Rx Instructions: As directed, bench that extends from outside to inside of tub benzonatate 200 mg capsule 200 mg PO TID PRN (Reason: cough) Qty: 30 0RF latanoprost 0.005 % Drops 1 drp OPB PM Rx Instructions: both eyes dorzolamide 2 % drops 1 drp OPB BID brimonidine 0.2 % drops 1 drp OPB TID lidocaine 5 % Adhesive Patch,Medicated 1 patch transdermal QAM Qty: 10 0RF pantoprazole 40 mg tablet,delayed release (DR/EC) 40 mg PO AMHS tramadol 50 mg tablet 50 mg PO Q8 PRN (Reason: pain) Held furosemide 20 mg tablet 20 mg PO 3XWK Qty: 90 3RF Hold Instructions: Provider's Order - until kidney function improves Rx Instructions: sunday,sunday,sunday mornings Discontinued hydralazine 10 mg tablet 10 mg PO TID Qty: 270 3RF amlodipine 10 mg tablet 10 mg PO QAM Discharge Orders: Discharge Order (Routine); Ordered 03/25/25 Ordered By: Leona Figueroa Admission Data Admit Date/Time: 03/18/25 14:08 Attending Provider: Teresa Mota Admit Provider: Akila Block Primary Care Provider: Song Pritchard Other Providers: Loki Munoz; María Lee; Elmo Akers; Kiel Beth; Max Carlos; Damian De Jesus; Liu Kramer; Jada Toussaint; Radha Patino; Pallavi Erickson; Kenzie Alexander; María Botello; Chuck Crawford; Julio Quintero; Janina Haywood; Marielos Jim; Sweetie Kothari; Eugenia Barker; Loki Peter; Mar Beth; Juliet Francis; Malcolm Truong; Michael Carty; [facility] Other Interventions: Discharge Summary Assessment (RN) Last Done: 03/25/25 14:40 Hospital Stay Data Consultations 03/18/25 11:34 ED Decision to Admit Stat 03/18/25 17:27 Consult Cardiology Routine Diagnostic Imagining Performed Chest X-Ray 03/18/25 09:04 XR chest 1V portable CLINICAL HISTORY: Chest pain, nonspecific COMPARISON STUDY: Chest radiograph November 12, 2024. Chest CT April 04, 2024. FINDINGS: Status post median sternotomy. Moderate cardiomegaly is again noted. There is no pneumothorax. Suspected trace bilateral pleural effusions. Interstitial thickening has progressed when compared to prior exam. There is no consolidation to suggest pneumonia. Severe degenerative changes within the shoulders are incidentally noted. IMPRESSION: Cardiomegaly with moderate interstitial pulmonary edema, increased since prior study chest radiograph. ACT 112: Negative or not required by law. Electronically signed by: Nathanael Yip M.D. 03/18/2025 9:[address] 03/18/25 09:43 CT SCAN OF THE CHEST WITHOUT IV CONTRAST CLINICAL HISTORY: Left-sided chest pain. COMPARISON STUDY: Chest x-ray dated 03/18/2025. Chest CT dated 04/04/2024. TECHNIQUE: CT scan of the thorax was performed from the thoracic inlet to the upper abdomen. Images are reviewed in the axial, sagittal, and coronal planes. IV contrast was not administered for this examination as per the referring clinician. A dose lowering technique was utilized adhering to the principles of ALARA. FINDINGS: Thyroid: Mildly enlarged and heterogeneous. Thoracic aorta: There is advanced atherosclerotic calcification of the thoracic aorta, which is normal in caliber and demonstrates standard 3-vessel arch anatomy. Heart: The patient is status post midline sternotomy. Findings suggest previous aortic valve surgery. The heart is enlarged and without pericardial effusion. The coronary arteries are densely calcified. The pulmonary trunk is dilated, measuring 4 cm in diameter. This suggests pulmonary artery hypertension. Lungs and pleural spaces: Evaluation of the lung parenchyma is degraded by motion artifact. Emphysema is observed. Diffuse interlobular septal thickening is consistent with congestive failure. Mild dependent airspace consolidation is seen at both lung bases, left side greater than right. There is trace left pleural effusion. Mediastinum: There is no mediastinal lymphadenopathy. Yolis: Not well assessed without IV contrast. Axillae: There is no axillary lymphadenopathy. Upper abdomen: Upper pole renal cysts are partially visualized and measure up to 5 cm. Partially visualized upper abdominal viscera is within normal limits. Skeletal structures: The skeletal structures are osteopenic. Degenerative change and kyphoscoliosis is noted in the thoracic spine. Advanced arthritic change is seen in the shoulders. No lytic or blastic bony lesions are seen. IMPRESSION: 1. Cardiomegaly and emphysema with evidence of congestive failure. 2. Dependent airspace opacities at both lungs could represent a combination of atelectasis and mild pulmonary edema. Correlate clinically for evidence of a superimposed pneumonia/aspiration pneumonitis. Radiographic follow-up to resolution is recommended. 3. Trace left pleural effusion. 4. There is evidence of pulmonary artery hypertension. 5. Additional findings as above. ACT 112: Negative or not required by law. Electronically signed by: Omid Da Silva M.D. 03/18/2025 10:54 AM Soft Tissue Neck CT 03/18/25 09:43 CT soft tissue neck wo con HISTORY: 84 years-old Female L neck/chest pain, mech valve acute neck pain COMPARISON: CT cervical spine 11/07/2024 TECHNIQUE: Multiple axial CT images of the soft tissues of the neck were obtained without IV contrast. A dose lowering technique was used consistent with the principals of ALARA. FINDINGS: Involutional changes with white matter hypodensities suggestive of chronic microvascular ischemic disease. Multinodular thyroid with nodules measuring up to 11 mm on the right. Partially imaged median sternotomy wires. Extensive atherosclerosis of the thoracic aortic arch with additional atherosclerosis of the carotid arteries. There is a stent present within the proximal cervical segment left ICA. Intralobular septal thickening of the lungs with pulmonary emphysema. 5 mm groundglass nodular focus of the left lung apex on image 318 series 6, new from prior. No acute inflammatory changes, pathologically enlarged lymph nodes or suspicious mass lesions identified on this noncontrast study. Unremarkable glottis and subglottic airway. Degenerative changes of the cervical and thoracic spine without acute fracture identified. IMPRESSION: 1. No acute inflammatory changes, fluid collections or pathologically enlarged lymph nodes. 2. Incidental findings as above. ACT 112: Negative or not required by law. The above report was generated using voice recognition software. It may contain grammatical, syntax or spelling errors. Electronically signed by: Ildefonso Gamez M.D. 03/18/2025 10:33 AM Chest X-Ray 03/22/25 08:00 HISTORY: CHF TECHNIQUE: PA and lateral views of the chest. COMPARISON: Chest CT dated 03/18/2025. FINDINGS: Findings of CHF with cardiomegaly, pulmonary vascular congestion, and mild interstitial pulmonary edema. Mild nonspecific bibasilar airspace opacities.No pneumothorax. Possible small pleural effusions. Left-sided aortic arch containing atherosclerotic calcification. Midline trachea. Severe degenerative changes of the shoulders and spine. IMPRESSION: * Findings of CHF with cardiomegaly, pulmonary vascular congestion, mild interstitial pulmonary edema, and possible small pleural effusions. * Mild bibasilar airspace opacities may represent superimposed atelectasis or pneumonia. Electronically signed by Horace Odom 03-22-2025 09:18 AM Discharge Instructions Given to Patient (Per Discharging Provider) Ms. Ty, Yung were hospitalized after having leg swelling and weakness at home - you were found to have a CHF exacerbation that improved after IV diuretics. Your INR was subtherapeutic at home and it is unclear if you were taking your coumadin as prescribed. You were restarted on 5mg daily and so far has been well controlled. Your blood pressure medications were changed to try to limit leg swelling - you now have to take Amlodopine 5mg each morning and hydralazine increased to 25mg three times a day. You will have a few more days of antibiotics for you pneumonia. You will need to follow up with your PCP and [employer] after you are discharged form [facility]. For encompass: Patient has been getting pill packs from [facility] - these will need to be updated on discharge Need ones more day of abx for PNA - has been getting ceftriaxone and doxycyline here. Please monitor INR Supervising Physician Co-Signing Physician Notes PA Supervision Note: I did not personally see or examine the patient today, but I verified all regalado points of DAYNA Figueroa's assessment and plan with the following exceptions/additions: IV was discontinued on discharge. She can take cefdinir 300 mg p.o. once daily (renally dosed) for 1 more day of antibiotics instead of IV ceftriaxone Total Time Total Time Spent Total Time Spent (In Minutes): Time spent day of discharge 35 minutes including direct patient care, medication reconciliation, documentation, review of labs and images, and coordination of care. Coding Level of Care Code 03352 INP/OBS DISCH >30 MIN Diagnoses Acute exacerbation of chronic heart failure I50.9 Acute kidney injury superimposed on stage 3b chronic kidney disease N17.9; N18.32 Hypertensive emergency I16.1
[2025-03-25] MEDS: METOCLOPRAMIDE HCL INJ 5 MG/ML 2 ML VIAL IV ONE (13:01)
[2025-03-25 14:41] VITALS: PULSE 75
== END 2025-03-25 15:16 | DRG 291 ==
LOC: ED 08:43 → 2N 14:08 → SUATTDRO 14:08 → 2N 16:44